=== PATIENT | female | born 1955 | race Caucasian/White ===

== ENCOUNTER → 2018-05-01 | Outpatient (CLI) | payer MEDICARE, OTHER ==
--- NOTE | 2018-05-01 13:29 | Diagnostic Imaging Report ---
INDICATION: Osteoporosis screening in postmenopausal female. COMPARISON: None. FINDINGS: AP Spine L1-L4: [BMD (g/cm2): 1.097] [T-Score: -0.9] [Z-Score: 0.9] [BMD Previous: N/A] [BMD % Change: N/A] LT Hip Neck: [BMD (g/cm2): 0.853] [T-Score: -1.3] [Z-Score: 0.2] LT Hip Total: [BMD (g/cm2):0.958] [T-Score:-0.4] [Z-Score: 0.9] [BMD Previous: N/A] [BMD % Change: N/A] RT Hip Neck: [BMD (g/cm2):0.914] [T-Score:-0.9] [Z-Score:0.7] RT Hip Total: [BMD (g/cm2):0.986] [T-score:-0.2] [Z-Score:1.1] [BMD Previous:N/A] [BMD % Change:N/A] *Indicates significant change from prior examination based on 95% confidence level. World Health Organization criteria for BMD interpretation classify patients as Normal (T-score at or above -1.0), Osteopenic (T-score between -1.0 and -2.5) or Osteoporotic (T-score at or below -2.5). LIMITATIONS AND MODIFICATION: None. FRACTURE RISK (FRAX SCORE): The ten year probability of (%): Major Osteoporotic Fracture: [N/A] Hip Fracture: [N/A] IMPRESSION: 1. Osteopenia (Low bone mass). 2. Baseline examination. 3. See below National Osteoporosis Foundation guidelines on when to potentially initiate pharmacologic therapy. Based on the National Osteoporosis Foundation Guidelines, pharmacologic treatment should be initiated in any of the following, unless clinical conditions suggest otherwise: * Any patient with prior fragility fracture of the hip or vertebrae. A spine fracture indicates 5X risk for subsequent spine fracture and 2X risk for subsequent hip fracture. * Osteoporosis (T-score <-2.5). * Postmenopausal women and men age 50 and older with low bone mass/osteopenia (T-score between -1.0 and -2.5) by DXA and 10-year major osteoporotic fracture greater than 20% or a 10-year probability of hip fracture greater than 3%. These fracture risks are supplied above in the FRAX score, if applicable. * Clinician judgement and/or patient preferences may indicate treatment for people with 10-year fracture probabilities above or below these levels. Dictated by: Dictated on workstation # [id number]
--- NOTE | 2018-05-02 20:53 | Diagnostic Imaging Report ---
INDICATION: Routine screening. COMPARISON: No prior mammograms are available for comparison. TECHNIQUE: 2D and 3D bilateral screening mammography was performed with CAD. FINDINGS: Scattered fibroglandular densities are identified bilaterally. There are scattered benign calcifications bilaterally. No masses or malignant appearing microcalcifications are seen. The axillae are unremarkable. IMPRESSION: No mammographic features suspicious for malignancy are identified. ACR BI-RADS Category 2: Benign findings. Result letter will be mailed to the patient. Note: At least 10% of breast cancer is not imaged by mammography. Dictated on workstation # [id number]
== END ==
LOC: RAD 10:33
PROVIDERS: ATTEND Nurse Practitioner Family
DX: Z12.31 Encounter for screening mammogram for malignant neoplasm of breast (principal); Z13.820 Encounter for screening for osteoporosis; M85.88 Other specified disorders of bone density and structure, other site; Z78.0 Asymptomatic menopausal state
CPT/HCPCS: 77067; 77080

== ENCOUNTER 2018-09-19 20:20 | Emergency (ER) | payer MEDICARE, OTHER ==
[~2018-09-19] VITALS: Ht 152.4 cm; Wt 62.6 kg
--- OUTSIDE RECORDS SUMMARY | 2018-09-19 20:26 | XMS REPORT ---
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 Name Role Phone Migration, Doctor Unavailable Unavailable PROBLEMS Type Condition ICD9-CM Code TXP72-QT Code Onset Dates Condition Status SNOMED Code Problem Hypertension I10 Active 94812409 Problem Insomnia G47.00 Active 926621894 Problem Hyperlipidemia LDL goal <70 E78.5 Active 25769866 Problem Long-term use of high-risk medication Z79.899 Active 639732228 Problem Arthritis M19.90 Active 5438358 Problem Hypercholesterolemia E78.0 Active 38533346 Problem Anxiety associated with depression F41.8 Active 690581821 Problem Type 2 diabetes mellitus with other specified complication, without long- term current use of insulin E11.69 Active 72944972 Problem Fibromyalgia M79.7 Active 38414052 Problem Adjustment disorder with anxiety F43.22 Active 51214622 Problem Chronic maxillary sinusitis J32.0 Active 21853081 Problem Overweight (BMI 25.0-29.9) E66.3 Active 527029819 Problem Chronic fatigue R53.82 Active 37855558 ALLERGIES No Information ENCOUNTERS Encounter Location Date Diagnosis [facility] [id number] [place] [address] Oct, [facility] [address] [address] Aug, [facility] [id number] [place] [address] Aug, Viral upper respiratory tract infection J06.9 and Wheezing R06.2 [facility] [id number] [place] [address] Jun, Hypertension I10 [facility] [id number] [place] [address] Jun, [facility] [address] [place] [address] 04 Jun, 2018 Hyperlipidemia LDL goal <70 E78.5 [place] [address] [address] May, Fibromyalgia M79.7 and Hypertension I10 [facility] [id number] [place] [address] May, Type 2 diabetes mellitus with other specified complication, without long-term current use of insulin E11.69 [place] [id number] [place] [address] Apr, Fibromyalgia M79.7 [place] [address] [address] Apr, Well woman exam without gynecological exam Z00.00 ; Breast cancer screening Z12.31 and Screening for osteoporosis Z13.820 [place] [address] [address] Apr, Hypertension I10 [place] [address] [address] Mar, Fibromyalgia M79.7 [facility] [id number] [place] [address] Mar, Hypertension I10 [place] [id number] [place] [address] Mar, Hypertension I10 [place] [id number] [place] [address] Feb, Hypertension I10 ; Hyperlipidemia LDL goal <70 E78.5 and Type 2 diabetes mellitus with other specified complication, without long-term current use of insulin E11.69 [place] [id number] [place] [address] Feb, Hypertension I10 [place] [id number] [place] [address] Feb, Fibromyalgia M79.7 [facility] [id number] [place] [address] 17 Jan, 2018 Hypertension I10 ; Trochanteric bursitis, right hip M70.61 ; Trochanteric bursitis of left hip M70.62 ; Chronic fatigue R53.82 ; Type 2 diabetes mellitus without complication, without long-term current use of insulin E11.9 and Hypercholesterolemia E78.0 [place] [id number] [place] [address] Dec, Fibromyalgia M79.7 [place] [address] [address] Nov, Hyperlipidemia LDL goal <70 E78.5 [place] [address] [address] Nov, Hyperlipidemia LDL goal <70 E78.5 [facility] [id number] [place] [address] Nov, Hypercholesterolemia E78.0 [place] [id number] [place] [address] Oct, Hyperlipidemia LDL goal <70 E78.5 [facility] [id number] [place] [address] Oct, Type 2 diabetes mellitus without complication, without long-term current use of insulin E11.9 ; Hyperlipidemia LDL goal <70 E78.5 ; Hypertension I10 ; Fibromyalgia M79.7 and Chronic fatigue R53.82 [place] [id number] [place] [address] 15 Oct, 2017 Type 2 diabetes mellitus without complication, without long-term current use of insulin E11.9 ; Hyperlipidemia LDL goal <70 E78.5 ; Hypertension I10 ; Fibromyalgia M79.7 ; Chronic fatigue R53.82 and Overweight (BMI 25.0-29.9) E66.3 [place] [id number] [place] [address] Aug, Hypertension I10 and Dyshidrotic eczema L30.1 [place] [address] [address] Jun, Hyperlipidemia LDL goal <70 E78.5 [place] [address] Jun, Arthritis M19.[address] [address] May, Hypertension I10 ; Anxiety associated with depression F41.8 ; Hyperlipidemia LDL goal <70 E78.5 and Chronic maxillary sinusitis J32.[address] [address] May, Acute non-recurrent maxillary sinusitis J01.00 and Sore throat J02.[address] [address] May, Dysthymia F34.1 [place] [address] [address] Apr, Hypertension I10 [address] [address] Apr, Cough R05 ; Sore throat J02.9 and Bronchitis J40 [address] [address] Mar, Anxiety associated with depression F41.8 ; Adjustment disorder with anxiety F43.22 and Depression F32.9 [place] [address] [address] Mar, [address] [address] Mar, Type 2 diabetes mellitus without complication, without long-term current use of insulin E11.9 ; Hypertension I10 ; Hyperlipidemia LDL goal <70 E78.5 ; Arthritis M19.90 ; Long-term use of high-risk medication Z79.899 and Dysthymia F34.1 [place] [id number] [place] [address] Mar, [facility] [id number] [place] [address] Mar, [facility] [id number] [place] [address] Feb, [facility] [id number] [place] [address] Feb, Acute right hip pain M25.551 and Hypertension I10 [facility] [id number] [place] [address] Feb, Diabetes E11.9 [facility] [id number] [place] [address] Jan, Hypertension I10 [facility] [id number] [place] [address] Jan, Hypertension I10 [facility] [id number] [place] [address] Dec, Dysuria R30.0 [facility] [id number] [place] [address] Dec, [facility] [id number] [place] [address] Dec, Fibromyalgia M79.7 [facility] [id number] [place] [address] Dec, Acute recurrent frontal sinusitis J01.11 and Hypertension I10 [facility] [id number] [place] [address] Dec, Hypertension I10 [facility] [id number] [place] [address] Dec, [facility] [id number] [place] [address] Dec, Hypertension I10 [facility] [address] [place] [address] Nov, [facility] [id number] [place] [address] Oct, Fibromyalgia M79.7 ; Hypertension I10 ; Depression F32.9 ; Hypercholesterolemia E78.0 ; Anxiety associated with depression F41.8 and Diabetes E11.9 [facility] [id number] [place] [address] September, Essential hypertension I10 ; Diabetes E11.9 ; Anxiety associated with depression F41.8 and Hypercholesterolemia E78.0 [place] [id number] [place] [address] Aug, [place] [id number] [place] [address] Aug, Diabetes E11.9 [place] [id number] [place] [address] Aug, [facility] [id number] [place] [address] Jul, Acute non-recurrent maxillary sinusitis J01.00 [place] [id number] [place] [address] Jul, Anxiety associated with depression F41.8 [place] [id number] [place] [address] Jun, Anxiety associated with depression F41.8 and Hypercholesterolemia E78.0 [place] [id number] [place] [address] May, Diabetes E11.9 ; Insomnia G47.00 ; Fibromyalgia M79.7 ; Hypercholesterolemia E78.0 ; Anxiety associated with depression F41.8 and Essential hypertension I10 [facility] [address] [place] [address] May, [facility] [id number] [place] [address] May, [facility] [id number] [place] [address] Mar, [facility] [address] [address] Mar, Hypertension I10 [facility] [address] [address] Feb, [facility] [address] [address] Feb, [facility] [address] [address] Feb, Anxiety associated with depression F41.8 ; Chest tightness R07.89 and Elevated blood pressure I10 [place] [address] [address] Feb, Encounter for immunization Z23 ; Bronchitis J40 ; Diabetes E11.9 ; Hypertension I10 ; Insomnia G47.00 ; Hypercholesterolemia E78.0 ; Depression F32.9 and Fibromyalgia M79.7 [facility] [address] [address] Jan, Bronchitis J40 and Depression F32.9 [facility] [id number] [place] [address] Jan, Bronchitis J40 [facility] [id number] [place] [address] Dec, [facility] [id number] [place] [address] Dec, [facility] [address] [address] Nov, Acute non-recurrent frontal sinusitis J01.10 and Hypertension I10 [facility] [address] [address] Nov, [facility] [id number] [place] [address] Nov, Diabetes E11.9 ; Fibromyalgia M79.7 ; Hypertension I10 ; Insomnia G47.00 ; Depression F32.9 and Hypercholesterolemia E78.0 [facility] [id number] [place] [address] Oct, Hypercholesterolemia E78.0 [facility] [address] [address] September, [facility] [id number] [place] [address] Aug, Diabetes E11.9 ; Fibromyalgia M79.7 ; Hypertension I10 ; Insomnia G47.00 ; Depression F32.9 ; Shoulder pain M25.519 ; Hypercholesterolemia E78.0 and Pain in right shoulder M25.511 [place] [id number] [place] [address] Jul, [facility] [address] [address] Jun, Hypercholesterolemia E78.0 [place] [address] [address] Jun, [place] [id number] [place] [address] May, [place] [id number] [place] [address] May, Well woman exam Z01.419 [place] [id number] [place] [address] May, Hypertension I10 ; Diabetes E11.9 ; Fibromyalgia M79.7 ; Insomnia G47.00 ; Depression F32.9 and Hypercholesterolemia E78.0 [place] [id number] [place] [address] Apr, [place] [address] [address] Apr, Fibromyalgia M79.7 ; Hypertension I10 ; Bronchitis J40 ; Insomnia G47.00 ; Depression F32.9 ; Shoulder pain M25.519 and Hypercholesterolemia E78.0 [facility] [address] [address] Mar, Hyperlipemia E78.5 [facility] [address] [address] Mar, Diabetes E11.9 ; Hypertension I10 ; Insomnia G47.00 ; Depression F32.9 and Shoulder pain M25.519 [place] [address] [address] Mar, [facility] [address] [address] Feb, [facility] [address] [place] [address] Feb, Diabetes E11.9 ; Encounter for immunization Z23 ; Fibromyalgia M79.7 ; Hypertension I10 ; Bronchitis J40 and Insomnia G47.00 [place] [address] [address] Feb, Bronchitis J40 [facility] [address] [address] Jan, Bronchitis 490 [facility] [address] [address] Aug, [facility] [address] [address] Aug, [facility] [address] [address] Jul, [facility] [address] [address] Jul, [facility] [address] [address] Jul, [facility] [place] [facility] [address] [id number] [place] [address] Jul, [facility] [place] [facility] [address] [id number] [place] [address] Jun, [facility] [place] [facility] [address] [id number] [place] [address] Jun, [facility] [place] [facility] [address] [id number] [place] [address] May, [facility] [place] [facility] [address] [id number] [place] [address] May, [facility] [place] [facility] [address] [id number] [place] [address] Apr, [facility] [place] [facility] [address] [id number] [place] [address] Apr, [facility] [place] [facility] [address] [id number] [place] [address] Apr, [facility] [place] [facility] [address] [id number] [place] [address] Apr, [facility] [place] [facility] [address] [id number] [place] [address] Apr, [facility] [place] [facility] [address] [id number] [place] [address] Apr, [facility] [place] [facility] [address] [id number] [place] [address] Feb, [facility] [place] [facility] [address] [id number] [place] [address] Feb, [facility] [place] [facility] [address] [id number] [place] [address] Jan, [facility] [place] [facility] [address] [id number] [place] [address] Jan, [facility] [place] [facility] [address] [id number] [place] [address] Dec, [facility] [place] [facility] [address] [id number] [place] [address] Dec, [facility] [place] [facility] [address] [id number] [place] [address] September, [facility] [place] [facility] [address] [id number] [place] [address] September, [facility] [place] [facility] [address] [id number] [place] [address] September, [facility] [place] [facility] [address] [id number] [place] [address] September, [facility] [place] [facility] [address] [id number] [place] [address] September, [facility] [place] [facility] [address] [id number] [place] [address] September, [facility] [place] [facility] [address] [id number] [place] [address] Aug, [facility] [place] [facility] [address] [id number] [place] [address] Aug, [facility] [place] [facility] [address] [id number] [place] [address] Jul, [facility] [place] [facility] [address] [id number] [place] [address] Jul, [facility] [place] [facility] [address] [id number] [place] [address] May, [facility] [place] [facility] [address] [id number] [place] [address] May, [facility] [place] [facility] [address] [id number] [place] [address] May, [facility] [place] [facility] [address] [id number] [place] [address] May, [facility] [place] [facility] [address] [id number] [place] [address] May, [facility] [address] [id number] [place] [address] May, [facility] [place] [facility] [address] [id number] [place] [address] Apr, [facility] [place] [facility] [address] [id number] [place] [address] Apr, [facility] [place] [facility] [address] [id number] [place] [address] Apr, [facility] [address] [id number] [place] [address] Apr, [facility] [place] [facility] [address] [id number] [place] [address] Apr, [facility] [place] [facility] [address] [id number] [place] [address] Apr, [facility] [address] [id number] [place] [address] Apr, [facility] [place] [facility] [address] [id number] [place] [address] Apr, [facility] [address] [id number] [place] [address] Feb, [facility] [place] [facility] [address] [id number] [place] [address] 31 Feb, 2013 [facility] [place] [facility] [address] [id number] [place] [address] 15 Feb, 2013 [facility] [place] [facility] [address] [id number] [place] [address] 15 Feb, [address] [facility] [place] [facility] [address] [id number] [place] [address] 10 Feb, 2013 [facility] [place] [facility] [address] [id number] [place] [address] Feb, [facility] [address] [id number] [place] [address] Feb, [facility] [place] [facility] [address] [id number] [place] [address] Feb, [facility] [address] [id number] [place] [address] Nov, [facility] [place] [facility] [address] [id number] [place] [address] Nov, [facility] [address] [id number] [place] [address] Oct, [facility] [place] [facility] [address] [id number] [place] [address] Oct, [facility] [address] [id number] [place] [address] Oct, [facility] [address] [id number] [place] [address] September, [facility] [place] [facility] [address] [id number] [place] [address] September, [facility] [address] [id number] [place] [address] September, [facility] [place] [facility] [address] [id number] [place] [address] September, [facility] [place] [facility] [address] [id number] [place] [address] September, [facility] [place] [facility] [address] [id number] [place] [address] September, [facility] [place] [facility] [address] [id number] [place] [address] September, [facility] [place] [facility] [address] [id number] [place] [address] September, [facility] [place] [facility] [address] [id number] [place] [address] September, [facility] [place] [facility] [address] [id number] [place] [address] September, [facility] [place] [facility] [address] [id number] [place] [address] Aug, [facility] [place] [facility] [address] [id number] [place] [address] Jul, [facility] [place] [facility] [address] [id number] [place] [address] Jun, [facility] [place] [facility] [address] [id number] [place] [address] Jun, [facility] [place] [facility] [address] [id number] [place] [address] May, [facility] [place] [facility] [address] [id number] [place] [address] May, [facility] [place] [facility] [address] [id number] [place] [address] Mar, [facility] [place] [facility] [address] [id number] [place] [address] Mar, [facility] [place] [facility] [address] [id number] [place] [address] Mar, [facility] [place] [facility] [address] [id number] [place] [address] Mar, [facility] [place] [facility] [address] [id number] [place] [address] Feb, [facility] [place] [facility] [address] [id number] [place] [address] Feb, [facility] [place] [facility] [address] [id number] [place] [address] Feb, [facility] [place] [facility] [address] [id number] [place] [address] Feb, [facility] [place] [facility] [address] [id number] [place] [address] Feb, [facility] [place] [facility] [address] [id number] [place] [address] Feb, [facility] [place] [facility] [address] [id number] [place] [address] Feb, [facility] [place] [facility] [address] [id number] [place] [address], [place] [address] 18 Jan, 2012 [facility] [place] [facility] [address] [id number] [place] [address] 14 Jan, 2012 [facility] [place] [facility] [address] [id number] [place] [address] Jan, [facility] [place] [facility] [address] [id number] [place] [address] 30 Dec, 2011 [facility] [place] [facility] [address] [id number] [place] [address] Dec, [facility] [place] [facility] [address] [id number] [place] [address] Dec, [facility] [place] [facility] [address] [id number] [place] [address] Nov, [facility] [place] [facility] [address] [id number] [place] [address] Oct, [facility] [place] [facility] [address] [id number] [place] [address] Oct, [facility] [place] [facility] [address] [id number] [place] [address] Oct, [facility] [place] [facility] [address] [id number] [place] [address] Oct, [facility] [place] [facility] [address] [id number] [place] [address] 07 Oct, 2011 [facility] [place] [facility] [address] [id number], [place] [address] Aug, [facility] [address] [facility] [id number] [place] [address] Aug, [facility] [address] [facility] [id number], [place] [address] Jul, [facility] [address] [facility] [id number], [place] [address] Jun, [facility] [address] [id number] [id number] Jun, [facility] [address] [facility] [id number] [place] [address] May, [facility] [address] [facility] [id number], [place] [address] May, [facility] [address] [id number], [place] [address] May, [facility] [address] [id number], [place] [address] May, [facility] [address] [id number], [place] [address] May, [facility] [address] [facility] [id number], [place] [address] Apr, [facility] [address] [id number], [place] [address] Apr, [facility] [place] [facility] [address] [id number], [place] [address] Apr, [facility] [address] [id number] [place] [address] Apr, [facility] [place] [facility] [address] [facility] [id number], [place] [address] Apr, [facility] [place] [facility] [address] [facility] [id number], [place] [address] Apr, [facility] [address] [facility] [id number] [place] [address] Apr, [facility] [address] [facility] [id number] [place] [address] Apr, IMMUNIZATIONS No Known Immunizations SOCIAL HISTORY Never Assessed REASON FOR VISIT [place] [place] VITAL SIGNS MEDICATIONS Unknown Medications RESULTS No Results PROCEDURES No Known procedures INSTRUCTIONS MEDICATIONS ADMINISTERED No Known Medications MEDICAL (GENERAL) HISTORY Type Description Date Medical History Diabetes type II Medical History hypertension Medical History fibromyalgia Medical History hyperlipidemia Medical History ostoarthrtis Surgical History hysterectomy has right ovary left 1995 Surgical History shoulder surgery(right) 09/2014 Surgical History cataract surgery 2018 Hospitalization History surgeries Hospitalization History childbirth x 2
--- OUTSIDE RECORDS SUMMARY | 2018-09-19 20:27 | XMS REPORT ---
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 Name Role Phone Migration, Doctor Unavailable Unavailable PROBLEMS Type Condition ICD9-CM Code [id number] Code Onset Dates Condition Status SNOMED Code Problem Hypertension I10 Active 27223846 Problem Insomnia G47.00 Active 219712221 Problem Hyperlipidemia LDL goal <70 E78.5 Active 85976365 Problem Long-term use of high-risk medication Z79.899 Active 869214724 Problem Arthritis M19.90 Active 0680753 Problem Hypercholesterolemia E78.0 Active 04937346 Problem Anxiety associated with depression F41.8 Active 161178914 Problem Type 2 diabetes mellitus with other specified complication, without long- term current use of insulin E11.69 Active 29133456 Problem Fibromyalgia M79.7 Active 68185670 Problem Adjustment disorder with anxiety F43.22 Active 66519383 Problem Chronic maxillary sinusitis J32.0 Active 20633003 Problem Overweight (BMI 25.0-29.9) E66.3 Active 896792299 Problem Chronic fatigue R53.82 Active [id number] ALLERGIES No Information ENCOUNTERS Encounter Location Date Diagnosis [facility] [id number] [place] [address] Jun, Hypertension I10 [facility] [id number] [place] [address] Jun, [facility] [id number] [place] [address] Jun, Hyperlipidemia LDL goal <70 E78.5 [facility] [id number] [place] [address] May, Fibromyalgia M79.7 and Hypertension I10 [facility] [id number] [place] [address] May, Type 2 diabetes mellitus with other specified complication, without long-term current use of insulin E11.69 [facility] [id number] [place] [address] Apr, Fibromyalgia M79.7 [facility] [id number] [place], [place] [id number] 07 Apr, 2018 Well woman exam without gynecological exam Z00.00 ; Breast cancer screening Z12.31 and Screening for osteoporosis Z13.820 [facility] [id number] [place] [address] Apr, Hypertension I10 [facility] [id number] [place] [address] Mar, Fibromyalgia M79.7 [facility] [id number] [place] [address] Mar, Hypertension I10 [facility] [id number] [place] [address] Mar, Hypertension I10 [facility] [id number] [place] [address] Feb, Hypertension I10 ; Hyperlipidemia LDL goal <70 E78.5 and Type 2 diabetes mellitus with other specified complication, without long-term current use of insulin E11.69 [facility] [id number] [place] [address] Feb, Hypertension I10 [facility] [id number] [place] [address] Feb, Fibromyalgia M79.7 [facility] [id number] [place] [address] Jan, Hypertension I10 ; Trochanteric bursitis, right hip M70.61 ; Trochanteric bursitis of left hip M70.62 ; Chronic fatigue R53.82 ; Type 2 diabetes mellitus without complication, without long-term current use of insulin E11.9 and Hypercholesterolemia E78.0 [facility] [id number] [place] [address] Dec, Fibromyalgia M79.7 [facility] [id number] [place] [address] Nov, Hyperlipidemia LDL goal <70 E78.5 [facility] [id number] [place] [address] Nov, Hyperlipidemia LDL goal <70 E78.5 [facility] [address] [address] Nov, Hypercholesterolemia E78.0 [facility] [id number] [place] [address] Oct, Hyperlipidemia LDL goal <70 E78.5 [facility] [id number] [place] [address] Oct, Type 2 diabetes mellitus without complication, without long-term current use of insulin E11.9 ; Hyperlipidemia LDL goal <70 E78.5 ; Hypertension I10 ; Fibromyalgia M79.7 and Chronic fatigue R53.82 [facility] [id number] [place] [address] Oct, Type 2 diabetes mellitus without complication, without long-term current use of insulin E11.9 ; Hyperlipidemia LDL goal <70 E78.5 ; Hypertension I10 ; Fibromyalgia M79.7 ; Chronic fatigue R53.82 and Overweight (BMI 25.0-29.9) E66.3 [facility] [id number] [place] [address] Aug, Hypertension I10 and Dyshidrotic eczema L30.1 [facility] [id number] [place] [address] Jun, Hyperlipidemia LDL goal <70 E78.5 [facility] [id number] [place] [address] Jun, Arthritis M19.90 [facility] [id number] [place] [address] May, Hypertension I10 ; Anxiety associated with depression F41.8 ; Hyperlipidemia LDL goal <70 E78.5 and Chronic maxillary sinusitis J32.0 [facility] [address] [address] May, Acute non-recurrent maxillary sinusitis J01.00 and Sore throat J02.[address] [address] May, Dysthymia F34.1 [facility] [address] [address] Apr, Hypertension I10 [address] [address] Apr, Cough R05 ; Sore throat J02.9 and Bronchitis J40 [address] [address] Mar, Anxiety associated with depression F41.8 ; Adjustment disorder with anxiety F43.22 and Depression F32.9 [facility] [id number] [place] [address] Mar, [address] [address] Mar, Type 2 diabetes mellitus without complication, without long-term current use of insulin E11.9 ; Hypertension I10 ; Hyperlipidemia LDL goal <70 E78.5 ; Arthritis M19.90 ; Long-term use of high-risk medication Z79.899 and Dysthymia F34.1 [facility] [id number] [place] [address] Mar, [address] [address] Mar, [facility] [id number] [place] [address] Feb, [facility] [address] [address] Feb, Acute right hip pain M25.551 and Hypertension I10 [facility] [id number] [place] [address] Feb, Diabetes E11.9 [facility] [id number] [place] [address] Jan, Hypertension I10 [facility] [id number] [place] [address] Jan, Hypertension I10 [facility] [id number] [place] [address] Dec, Dysuria R30.0 [facility] [id number] [place] [address] Dec, [facility] [id number] [place] [address] Dec, Fibromyalgia M79.7 [facility] [id number] [place] [address] Dec, Acute recurrent frontal sinusitis J01.11 and Hypertension I10 [facility] [id number] [place] [address] Dec, Hypertension I10 [facility] [id number] [place] [address] Dec, [facility] [id number] [place] [address] Dec, Hypertension I10 [facility] [id number] [place] [address] Nov, [facility] [id number] [place] [address] Oct, Fibromyalgia M79.7 ; Hypertension I10 ; Depression F32.9 ; Hypercholesterolemia E78.0 ; Anxiety associated with depression F41.8 and Diabetes E11.9 [facility] [id number] [place] [address] September, Essential hypertension I10 ; Diabetes E11.9 ; Anxiety associated with depression F41.8 and Hypercholesterolemia E78.0 [facility] [id number] [place] [address] Aug, [facility] [id number] [place] [address] Aug, Diabetes E11.9 [facility] [id number] [place] [address] Aug, [facility] [id number] [place] [address] Jul, Acute non-recurrent maxillary sinusitis J01.00 [facility] [id number] [place] [address] Jul, Anxiety associated with depression F41.8 [facility] [id number] [place] [address] Jun, Anxiety associated with depression F41.8 and Hypercholesterolemia E78.0 [facility] [id number] [place] [address] May, Diabetes E11.9 ; Insomnia G47.00 ; Fibromyalgia M79.7 ; Hypercholesterolemia E78.0 ; Anxiety associated with depression F41.8 and Essential hypertension I10 [facility] [id number] [place] [address] May, [facility] [id number] [place] [address] May, [facility] [id number] [place] [address] Mar, [facility] [id number] [place] [address] Mar, Hypertension I10 [facility] [id number] [place] [address] Feb, [facility] [id number] [place] [address] Feb, [facility] [address] [address] Feb, Anxiety associated with depression F41.8 ; Chest tightness R07.89 and Elevated blood pressure I10 [facility] [address] [address] Feb, Encounter for immunization Z23 ; Bronchitis J40 ; Diabetes E11.9 ; Hypertension I10 ; Insomnia G47.00 ; Hypercholesterolemia E78.0 ; Depression F32.9 and Fibromyalgia M79.7 [facility] [address] [address] Jan, Bronchitis J40 and Depression F32.9 [facility] [address] [address] Jan, Bronchitis J40 [facility] [address] [address] Dec, [facility] [address] [address] Dec, [facility] [address] [address] Nov, Acute non-recurrent frontal sinusitis J01.10 and Hypertension I10 [facility] [address] [address] Nov, [facility] [address] [address] Nov, Diabetes E11.9 ; Fibromyalgia M79.7 ; Hypertension I10 ; Insomnia G47.00 ; Depression F32.9 and Hypercholesterolemia E78.0 [facility] [address] [address] Oct, Hypercholesterolemia E78.0 [facility] [address] [address] September, [facility] [id number] [place] [address] Aug, Diabetes E11.9 ; Fibromyalgia M79.7 ; Hypertension I10 ; Insomnia G47.00 ; Depression F32.9 ; Shoulder pain M25.519 ; Hypercholesterolemia E78.0 and Pain in right shoulder M25.511 [facility] [address] [address] Jul, [facility] [address] [address] Jun, Hypercholesterolemia E78.0 [facility] [address] [address] Jun, [facility] [address] [address] May, [facility] [address] [address] May, Well woman exam Z01.[address] [address] May, Hypertension I10 ; Diabetes E11.9 ; Fibromyalgia M79.7 ; Insomnia G47.00 ; Depression F32.9 and Hypercholesterolemia E78.0 [facility] [id number] [place] [address] Apr, [facility] [address] [address] Apr, Fibromyalgia M79.7 ; Hypertension I10 ; Bronchitis J40 ; Insomnia G47.00 ; Depression F32.9 ; Shoulder pain M25.519 and Hypercholesterolemia E78.0 [facility] [id number] [place] [address] Mar, Hyperlipemia E78.5 [facility] [address] [address] Mar, Diabetes E11.9 ; Hypertension I10 ; Insomnia G47.00 ; Depression F32.9 and Shoulder pain M25.519 [facility] [address] [address] Mar, [facility] [address] [address] Feb, [facility] [address] [address] Feb, Diabetes E11.9 ; Encounter for immunization Z23 ; Fibromyalgia M79.7 ; Hypertension I10 ; Bronchitis J40 and Insomnia G47.00 [facility] [address] [address] Feb, Bronchitis J40 [facility] [address] [address] Jan, Bronchitis 490 [facility] [address] [address] Aug, [facility] [address] [address] Aug, [facility] [address] [address] Jul, [facility] [id number] [place] [address] Jul, [facility] [address] [address] Jul, [facility] [address] [address] Jul, [facility] [address] [address] Jun, [facility] [address] [address] Jun, [facility] [address] [place] [address] May, [facility] [place] [facility] [address] [id number] [place] [address] May, [facility] [place] [facility] [address] [id number] [place] [address] Apr, [facility] [place] [facility] [address] [id number] [place] [address] Apr, [facility] [place] [facility] [address] [id number] [place] [address] Apr, [facility] [place] [facility] [address] [id number] [place] [address] Apr, [facility] [place] [facility] [address] [id number] [place] [address] Apr, [facility] [place] [facility] [address] [id number] [place] [address] Apr, [facility] [place] [facility] [address] [id number] [place] [address] Feb, [facility] [place] [facility] [address] [id number] [place] [address] Feb, [facility] [place] [facility] [address] [id number] [place] [address] Jan, [facility] [place] [facility] [address] [id number] [place] [address] Jan, [facility] [place] [facility] [address] [id number] [place] [address] Dec, [facility] [place] [facility] [address] [id number] [place] [address] Dec, [facility] [place] [facility] [address] [id number] [place] [address] September, [facility] [place] [facility] [address] [id number] [place] [address] September, [facility] [place] [facility] [address] [id number] [place] [address] September, [facility] [place] [facility] [address] [id number] [place] [address] September, [facility] [place] [facility] [address] [id number] [place] [address] September, [facility] [place] [facility] [address] [id number] [place] [address] September, [facility] [place] [facility] [address] [id number] [place] [address] Aug, [facility] [place] [facility] [address] [id number] [place] [address] Aug, [facility] [place] [facility] [address] [id number] [place] [address] Jul, [facility] [place] [facility] [address] [id number] [place] [address] Jul, [facility] [place] [facility] [address] [id number] [place] [address] May, [facility] [place] [facility] [address] [id number] [place] [address] May, [facility] [place] [facility] [address] [id number] [place] [address] May, [facility] [place] [facility] [address] [id number] [place] [address] May, [facility] [place] [facility] [address] [id number] [place] [address] May, [facility] [place] [facility] [address] [id number] [place] [address] May, [facility] [place] [facility] [address] [id number] [place] [address] Apr, [facility] [place] [facility] [address] [id number] [place] [address] Apr, [facility] [place] [facility] [address] [id number] [place] [address] Apr, [facility] [place] [facility] [address] [id number] [place] [address] Apr, [facility] [place] [facility] [address] [id number] [place] [address] Apr, [facility] [place] [facility] [address] [id number] [place] [address] Apr, [facility] [place] [facility] [address] [id number] [place] [address] Apr, [facility] [place] [facility] [address] [id number] [place] [address] Apr, [facility] [place] [facility] [address] [id number] [place] [address] Feb, [facility] [place] [facility] [address] [id number] [address] Feb, [facility] [place] [facility] [address] [id number] [place] [address] Feb, [facility] [place] [facility] [address] [id number] [place] [address] Feb, [facility] [place] [facility] [address] [id number], [place] [address] Feb, [facility] [place] [facility] [address] [id number], [place] [address] 10 Feb, 2013 [facility] [place] [facility] [address] [id number] [place] [address] Feb, [facility] [place] [facility] [address] [id number], [place] [address] Feb, [facility] [place] [facility] [address] [id number], [place] [address] Nov, [facility] [place] [facility] [address] [id number] [place] [address] Nov, [facility] [address] [id number] [place] [address] Oct, [facility] [address] [id number] [place] [address] Oct, [facility] [address] [id number] [place] [address] Oct, [facility] [address] [id number] [place] [address] September, [facility] [address] [id number] [place] [address] September, [facility] [address] [id number] [place] [address] September, [facility] [address] [id number] [place] [address] September, [facility] [address] [id number] [place] [address] September, [facility] [address] [id number] [place] [address] September, [facility] [address] [id number] [place] [address] September, [facility] [address] [id number] [place] [address] September, [facility] [address] [id number] [place] [address] September, [facility] [address] [id number] [place] [address] September, [facility] [address] [id number] [place] [address] Aug, [facility] [address] [id number] [place] [address] Jul, [facility] [place] [facility] [address] [id number] [place] [address] Jun, [facility] [place] [facility] [address] [id number] [place] [address] Jun, [facility] [place] [facility] [address] [id number] [place] [address] May, [facility] [place] [facility] [address] [id number] [place] [address] May, [facility] [place] [facility] [address] [id number] [place] [address] Mar, [facility] [place] [facility] [address] [id number] [place] [address] Mar, [facility] [place] [facility] [address] [id number] [place] [address] Mar, [facility] [place] [facility] [address] [id number], [place] [address] Mar, [facility] [place] [facility] [address] [id number] [place] [address] Feb, [facility] [place] [facility] [address] [facility] [id number], [place] [address] Feb, [facility] [place] [facility] [address] [id number], [place] [address] Feb, [facility] [place] [facility] [address] [id number], [place] [address] Feb, [facility] [place] [facility] [address] [id number], [place] [address] Feb, [facility] [place] [facility] [address] [id number], [place] [address] Feb, [facility] [place] [facility] [address] [facility] [id number] [address] Feb, [facility] [place] [facility] [address] [id number], [place] [address] 18 Jan, 2012 [facility] [address] [id number] [place] [address] 14 Jan, 2012 [facility] [address] [id number] [place] [address] 10 Jan, 2012 [facility] [address] [id number] [place] [address] 30 Dec, 2011 [facility] [address] [id number] [place] [address] Dec, [facility] [address] [id number] [place] [address] Dec, [facility] [address] [id number] [place] [address] Nov, [facility] [id number] [place] [address] Oct, [facility] [address] [id number] [place] [address] Oct, [facility] [address] [id number] [place] [address] Oct, [facility] [address] [id number] [place] [address] Oct, [facility] [id number] [place] [address] Oct, [facility] [address] [facility] [id number] [place] [address] Aug, [facility] [place] [facility] [address] [id number] [place] [address] Aug, [facility] [place] [facility] [address] [facility] [id number] [place] [address] Jul, [facility] [address] [id number] [place] [address] Jun, [facility] [address] [id number] [id number] 14 Jun, 2011 [facility] [address] [id number] [address] May, [facility] [id number] [address] May, [facility] [address] [id number] [address] May, [facility] [id number] [address] May, [facility] [id number] [address] May, [facility] [id number] [address] Apr, [facility] [id number] [address] Apr, [facility] [id number] [address] Apr, [facility] [id number] [address] Apr, [facility] [address] [id number] [address] Apr, [facility] [address] [id number] [address] Apr, [facility] [address] [id number], [place] [address] Apr, [facility] [address] [id number] [address] Apr, IMMUNIZATIONS No Known Immunizations SOCIAL HISTORY Never Assessed REASON FOR VISIT EMR-[facility] [place] PLAN OF CARE VITAL SIGNS MEDICATIONS Unknown Medications RESULTS No Results PROCEDURES No Known procedures INSTRUCTIONS MEDICATIONS ADMINISTERED No Known Medications MEDICAL (GENERAL) HISTORY Type Description Date Medical History Diabetes type II Medical History hypertension Medical History fibromyalgia Medical History hyperlipidemia Medical History ostoarthrtis Surgical History hysterectomy has right ovary left 1996 Surgical History shoulder surgery(right) 09/2014 Surgical History cataract surgery 2018 Hospitalization History surgeries Hospitalization History childbirth x 2
--- OUTSIDE RECORDS SUMMARY | 2018-09-19 20:27 | XMS REPORT ---
Author Author Migration, Doctor Organization [facility] Address Unknown Phone Unavailable Care Team Providers Care Senior Facilities Manager Name Role Phone Migration, Doctor Unavailable Unavailable PROBLEMS Type Condition ICD9-CM Code [id number] Code Onset Dates Condition Status SNOMED Code Problem Hypertension I10 Active 70055670 Problem Insomnia G47.00 Active 319165017 Problem Hyperlipidemia LDL goal <70 E78.5 Active 80404430 Problem Long-term use of high-risk medication Z79.899 Active 784741427 Problem Arthritis M19.90 Active 7669782 Problem Hypercholesterolemia E78.0 Active 48186961 Problem Anxiety associated with depression F41.8 Active 596494861 Problem Type 2 diabetes mellitus with other specified complication, without long- term current use of insulin E11.69 Active 96536455 Problem Fibromyalgia M79.7 Active 80886741 Problem Adjustment disorder with anxiety F43.22 Active 44062428 Problem Chronic maxillary sinusitis J32.0 Active 03460035 Problem Overweight (BMI 25.0-29.9) E66.3 Active 361730323 Problem Chronic fatigue R53.82 Active 06887203 ALLERGIES No Information ENCOUNTERS Encounter Location Date Diagnosis [facility] [id number] [place] [address] Oct, [facility] [address] [address] Aug, [facility] [id number] [place] [address] Aug, Viral upper respiratory tract infection J06.[address] [facility] [id number] [place] [address] Jun, Hypertension I10 [facility] [id number] [place] [address] Jun, [facility] [address] [place] [address] 04 Jun, 2018 Hyperlipidemia LDL goal <70 E78.5 [place] [address] [address] May, Fibromyalgia M79.7 and Hypertension I10 [place] [id number] [place] [address] May, Type 2 diabetes mellitus with other specified complication, without long-term current use of insulin E11.69 [place] [id number] [place] [address] Apr, Fibromyalgia M79.7 [place] [address] [address] Apr, Well woman exam without gynecological exam Z00.00 ; Breast cancer screening Z12.31 and Screening for osteoporosis Z13.820 [place] [address] [address] Apr, Hypertension I10 [place] [address] [address] Mar, Fibromyalgia M79.7 [place] [id number] [place] [address] Mar, Hypertension I10 [place] [id number] [place] [address] Mar, Hypertension I10 [place] [id number] [place] [address] Feb, Hypertension I10 ; Hyperlipidemia LDL goal <70 E78.5 and Type 2 diabetes mellitus with other specified complication, without long-term current use of insulin E11.69 [place] [id number] [place] [address] Feb, Hypertension I10 [place] [id number] [place] [address] Feb, Fibromyalgia M79.7 [place] [id number] [place] [address] 17 Jan, 2018 Hypertension I10 ; Trochanteric bursitis, right hip M70.61 ; Trochanteric bursitis of left hip M70.62 ; Chronic fatigue R53.82 ; Type 2 diabetes mellitus without complication, without long-term current use of insulin E11.9 and Hypercholesterolemia E78.0 [place] [id number] [place] [address] Dec, Fibromyalgia M79.7 [place] [address] [address] Nov, Hyperlipidemia LDL goal <70 E78.5 [place] [address] [address] Nov, Hyperlipidemia LDL goal <70 E78.5 [place] [id number] [place] [address] Nov, Hypercholesterolemia E78.0 [place] [id number] [place] [address] Oct, Hyperlipidemia LDL goal <70 E78.5 [place] [id number] [place] [address] Oct, Type 2 diabetes mellitus without complication, without long-term current use of insulin E11.9 ; Hyperlipidemia LDL goal <70 E78.5 ; Hypertension I10 ; Fibromyalgia M79.7 and Chronic fatigue R53.82 [place] [id number] [place] [address] 15 Oct, 2017 Type 2 diabetes mellitus without complication, without long-term current use of insulin E11.9 ; Hyperlipidemia LDL goal <70 E78.5 ; Hypertension I10 ; Fibromyalgia M79.7 ; Chronic fatigue R53.82 and Overweight (BMI 25.0-29.9) E66.3 [place] [id number] [place] [address] Aug, Hypertension I10 and Dyshidrotic eczema L30.1 [place] [address] [address] Jun, Hyperlipidemia LDL goal <70 E78.5 [place] [address] Jun, Arthritis M19.[address] [address] May, Hypertension I10 ; Anxiety associated with depression F41.8 ; Hyperlipidemia LDL goal <70 E78.5 and Chronic maxillary sinusitis J32.[address] [address] May, Acute non-recurrent maxillary sinusitis J01.00 and Sore throat J02.[address] [address] May, Dysthymia F34.1 [place] [address] [address] Apr, Hypertension I10 [address] [address] Apr, Cough R05 ; Sore throat J02.9 and Bronchitis J40 [address] [address] Mar, Anxiety associated with depression F41.8 ; Adjustment disorder with anxiety F43.22 and Depression F32.9 [place] [address] [address] Mar, [address] [address] Mar, Type 2 diabetes mellitus without complication, without long-term current use of insulin E11.9 ; Hypertension I10 ; Hyperlipidemia LDL goal <70 E78.5 ; Arthritis M19.90 ; Long-term use of high-risk medication Z79.899 and Dysthymia F34.1 [place] [id number] [place] [address] Mar, [facility] [id number] [place] [address] Mar, [facility] [id number] [place] [address] Feb, [facility] [id number] [place] [address] Feb, Acute right hip pain M25.[address] [facility] [id number] [place] [address] Feb, Diabetes E11.9 [facility] [id number] [place] [address] Jan, Hypertension I10 [facility] [id number] [place] [address] Jan, Hypertension I10 [facility] [id number] [place] [address] Dec, Dysuria R30.0 [facility] [id number] [place] [address] Dec, [facility] [id number] [place] [address] Dec, Fibromyalgia M79.7 [facility] [id number] [place] [address] Dec, Acute recurrent frontal sinusitis J01.[address] [facility] [id number] [place] [address] Dec, Hypertension I10 [facility] [id number] [place] [address] Dec, [facility] [id number] [place] [address] Dec, Hypertension I10 [facility] [id number] [place] [address] Nov, [facility] [id number] [place] [address] Oct, Fibromyalgia M79.7 ; Hypertension I10 ; Depression F32.9 ; Hypercholesterolemia E78.0 ; Anxiety associated with depression F41.[address] [facility] [id number] [place] [address] September, Essential hypertension I10 ; Diabetes E11.9 ; Anxiety associated with depression F41.8 and Hypercholesterolemia E78.0 [place] [id number] [place] [address] Aug, [place] [id number] [place] [address] Aug, Diabetes E11.9 [place] [id number] [place] [address] Aug, [facility] [id number] [place] [address] Jul, Acute non-recurrent maxillary sinusitis J01.00 [place] [id number] [place] [address] Jul, Anxiety associated with depression F41.8 [place] [id number] [place] [address] Jun, Anxiety associated with depression F41.8 and Hypercholesterolemia E78.0 [place] [id number] [place] [address] May, Diabetes E11.9 ; Insomnia G47.00 ; Fibromyalgia M79.7 ; Hypercholesterolemia E78.0 ; Anxiety associated with depression F41.8 and Essential hypertension I10 [facility] [id number] [place] [address] May, [facility] [id number] [place] [address] May, [facility] [id number] [place] [address] Mar, [facility] [address] [address] Mar, Hypertension I10 [facility] [address] [address] Feb, [facility] [address] [address] Feb, [facility] [address] [address] Feb, Anxiety associated with depression F41.8 ; Chest tightness R07.89 and Elevated blood pressure I10 [place] [address] [address] Feb, Encounter for immunization Z23 ; Bronchitis J40 ; Diabetes E11.9 ; Hypertension I10 ; Insomnia G47.00 ; Hypercholesterolemia E78.0 ; Depression F32.[address] [facility] [address] [address] Jan, Bronchitis J40 and Depression F32.9 [facility] [id number] [place] [address] Jan, Bronchitis J40 [facility] [id number] [place] [address] Dec, [facility] [id number] [place] [address] Dec, [facility] [address] [address] Nov, Acute non-recurrent frontal sinusitis J01.[address] [facility] [address] [address] Nov, [facility] [id number] [place] [address] Nov, Diabetes E11.9 ; Fibromyalgia M79.7 ; Hypertension I10 ; Insomnia G47.00 ; Depression F32.[address] [facility] [id number] [place] [address] Oct, Hypercholesterolemia E78.0 [facility] [address] [address] September, [place] [id number] [place] [address] Aug, Diabetes E11.9 ; Fibromyalgia M79.7 ; Hypertension I10 ; Insomnia G47.00 ; Depression F32.9 ; Shoulder pain M25.519 ; Hypercholesterolemia E78.0 and Pain in right shoulder M25.511 [place] [id number] [place] [address] Jul, [facility] [address] [address] Jun, Hypercholesterolemia E78.0 [place] [address] [address] Jun, [place] [id number] [place] [address] May, [place] [id number] [place] [address] May, Well woman exam Z01.419 [place] [id number] [place] [address] May, Hypertension I10 ; Diabetes E11.9 ; Fibromyalgia M79.7 ; Insomnia G47.00 ; Depression F32.9 and Hypercholesterolemia E78.0 [place] [id number] [place] [address] Apr, [place] [address] [address] Apr, Fibromyalgia M79.7 ; Hypertension I10 ; Bronchitis J40 ; Insomnia G47.00 ; Depression F32.9 ; Shoulder pain M25.[address] [facility] [address] [address] Mar, Hyperlipemia E78.5 [facility] [address] [address] Mar, Diabetes E11.9 ; Hypertension I10 ; Insomnia G47.00 ; Depression F32.9 and Shoulder pain M25.519 [place] [address] [address] Mar, [facility] [address] [address] Feb, [facility] [address] [place] [address] Feb, Diabetes E11.9 ; Encounter for immunization Z23 ; Fibromyalgia M79.7 ; Hypertension I10 ; Bronchitis J40 and Insomnia G47.00 [place] [address] [address] Feb, Bronchitis J40 [facility] [address] [address] Jan, Bronchitis 490 [facility] [address] [address] Aug, [facility] [address] [address] Aug, [facility] [address] [address] Jul, [facility] [address] [address] Jul, [facility] [address] [address] Jul, [facility] [place] [facility] [address] [id number] [place] [address] Jul, [facility] [place] [facility] [address] [id number] [place] [address] Jun, [facility] [place] [facility] [address] [id number] [place] [address] Jun, [facility] [place] [facility] [address] [id number] [place] [address] May, [facility] [place] [facility] [address] [id number] [place] [address] May, [facility] [place] [facility] [address] [id number] [place] [address] Apr, [facility] [place] [facility] [address] [id number] [place] [address] Apr, [facility] [place] [facility] [address] [id number] [place] [address] Apr, [facility] [place] [facility] [address] [id number] [place] [address] Apr, [facility] [place] [facility] [address] [id number] [place] [address] Apr, [facility] [place] [facility] [address] [id number] [place] [address] Apr, [facility] [place] [facility] [address] [id number] [place] [address] Feb, [facility] [place] [facility] [address] [id number] [place] [address] Feb, [facility] [place] [facility] [address] [id number] [place] [address] Jan, [facility] [place] [facility] [address] [id number] [place] [address] Jan, [facility] [place] [facility] [address] [id number] [place] [address] Dec, [facility] [place] [facility] [address] [id number] [place] [address] Dec, [facility] [place] [facility] [address] [id number] [place] [address] September, [facility] [place] [facility] [address] [id number] [place] [address] September, [facility] [place] [facility] [address] [id number] [place] [address] September, [facility] [place] [facility] [address] [id number] [place] [address] September, [facility] [place] [facility] [address] [id number] [place] [address] September, [facility] [place] [facility] [address] [id number] [place] [address] September, [facility] [place] [facility] [address] [id number] [place] [address] Aug, [facility] [place] [facility] [address] [id number] [place] [address] Aug, [facility] [place] [facility] [address] [id number] [place] [address] Jul, [facility] [place] [facility] [address] [id number] [place] [address] Jul, [facility] [place] [facility] [address] [id number] [place] [address] May, [facility] [place] [facility] [address] [id number] [place] [address] May, [facility] [place] [facility] [address] [id number] [place] [address] May, [facility] [place] [facility] [address] [id number] [place] [address] May, [facility] [place] [facility] [address] [id number] [place] [address] May, [facility] [address] [id number] [place] [address] May, [facility] [place] [facility] [address] [id number] [place] [address] Apr, [facility] [place] [facility] [address] [id number] [place] [address] Apr, [facility] [place] [facility] [address] [id number] [place] [address] Apr, [facility] [address] [id number] [place] [address] Apr, [facility] [place] [facility] [address] [id number] [place] [address] Apr, [facility] [place] [facility] [address] [id number] [place] [address] Apr, [facility] [address] [id number] [place] [address] Apr, [facility] [place] [facility] [address] [id number] [place] [address] Apr, [facility] [address] [id number] [place] [address] Feb, [facility] [place] [facility] [address] [id number] [place] [address] 31 Feb, 2013 [facility] [place] [facility] [address] [id number] [place] [address] 15 Feb, 2013 [facility] [place] [facility] [address] [id number] [place] [address] 15 Feb, 2013 [facility] [place] [facility] [address] [id number] [place] [address] 10 Feb, 2013 [facility] [place] [facility] [address] [id number] [place] [address] Feb, [facility] [address] [id number] [place] [address] Feb, [facility] [place] [facility] [address] [id number] [place] [address] Feb, [facility] [address] [id number] [place] [address] Nov, [facility] [place] [facility] [address] [id number] [place] [address] Nov, [facility] [address] [id number] [place] [address] Oct, [facility] [place] [facility] [address] [id number] [place] [address] Oct, [facility] [address] [id number] [place] [address] Oct, [facility] [address] [id number] [place] [address] September, [facility] [place] [facility] [address] [id number] [place] [address] September, [facility] [address] [id number] [place] [address] September, [facility] [place] [facility] [address] [id number] [place] [address] September, [facility] [place] [facility] [address] [id number] [place] [address] September, [facility] [place] [facility] [address] [id number] [place] [address] September, [facility] [place] [facility] [address] [id number] [place] [address] September, [facility] [place] [facility] [address] [id number] [place] [address] September, [facility] [place] [facility] [address] [id number] [place] [address] September, [facility] [place] [facility] [address] [id number] [place] [address] September, [facility] [place] [facility] [address] [id number] [place] [address] Aug, [facility] [place] [facility] [address] [id number] [place] [address] Jul, [facility] [place] [facility] [address] [id number] [place] [address] Jun, [facility] [place] [facility] [address] [id number] [place] [address] Jun, [facility] [place] [facility] [address] [id number] [place] [address] May, [facility] [place] [facility] [address] [id number] [place] [address] May, [facility] [place] [facility] [address] [id number] [place] [address] Mar, [facility] [place] [facility] [address] [id number] [place] [address] Mar, [facility] [place] [facility] [address] [id number] [place] [address] Mar, [facility] [place] [facility] [address] [id number] [place] [address] Mar, [facility] [place] [facility] [address] [id number] [place] [address] Feb, [facility] [place] [facility] [address] [id number] [place] [address] Feb, [facility] [place] [facility] [address] [id number] [place] [address] Feb, [facility] [place] [facility] [address] [id number] [place] [address] Feb, [facility] [place] [facility] [address] [id number] [place] [address] Feb, [facility] [place] [facility] [address] [id number] [place] [address] Feb, [facility] [place] [facility] [address] [id number] [place] [address] Feb, [facility] [place] [facility] [id number] [place] [address], [place] [address] 18 Jan, 2012 [facility] [place] [facility] [address] [id number] [place] [address] 14 Jan, 2012 [facility] [place] [facility] [address] [id number] [place] [address] Jan, [facility] [place] [facility] [address] [id number] [place] [address] 30 Dec, 2011 [facility] [place] [facility] [address] [id number] [place] [address] Dec, [facility] [place] [facility] [address] [id number] [place] [address] Dec, [facility] [place] [facility] [address] [id number] [place] [address] Nov, [facility] [place] [facility] [address] [id number] [place] [address] Oct, [facility] [place] [facility] [address] [id number] [place] [address] Oct, [facility] [place] [facility] [address] [id number] [place] [address] Oct, [facility] [place] [facility] [address] [id number] [place] [address] Oct, [facility] [place] [facility] [address] [id number] [place] [address] 07 Oct, 2011 [facility] [place] [facility] [address] [id number], [place] [address] Aug, [facility] [address] [facility] [id number] [place] [address] Aug, [facility] [address] [facility] [id number], [place] [address] Jul, [facility] [address] [facility] [id number], [place] [address] Jun, [facility] [address] [id number] [id number] Jun, [facility] [address] [facility] [id number] [place] [address] May, [facility] [address] [facility] [id number], [place] [address] May, [facility] [address] [id number], [place] [address] May, [facility] [address] [id number], [place] [address] May, [facility] [address] [id number], [place] [address] May, [facility] [address] [facility] [id number], [place] [address] Apr, [facility] [address] [id number], [place] [address] Apr, [facility] [place] [facility] [address] [id number], [place] [address] Apr, [facility] [address] [id number] [place] [address] Apr, [facility] [place] [facility] [address] [facility] [id number], [place] [address] Apr, [facility] [place] [facility] [address] [facility] [id number], [place] [address] Apr, [facility] [address] [facility] [id number] [place] [address] Apr, [facility] [address] [facility] [id number] [place] [address] Apr, IMMUNIZATIONS No Known Immunizations SOCIAL HISTORY Never Assessed [place] [place] VITAL SIGNS MEDICATIONS Unknown [...]
--- OUTSIDE RECORDS SUMMARY | 2018-09-19 20:28 | XMS REPORT ---
Author Author Migration, Doctor Organization [facility] Address Unknown Phone Unavailable Care Team Providers Care Maintenance Director Name Role Phone Migration, Doctor Unavailable Unavailable PROBLEMS Type Condition ICD9-CM Code ZKP17-HE Code Onset Dates Condition Status SNOMED Code Problem Hypertension I10 Active 75501092 Problem Insomnia G47.00 Active 290495465 Problem Hyperlipidemia LDL goal <70 E78.5 Active 18229147 Problem Long-term use of high-risk medication Z79.899 Active 417049629 Problem Arthritis M19.90 Active 6607741 Problem Hypercholesterolemia E78.0 Active 86154494 Problem Anxiety associated with depression F41.8 Active 854255936 Problem Type 2 diabetes mellitus with other specified complication, without long- term current use of insulin E11.69 Active 60468062 Problem Fibromyalgia M79.7 Active 67258864 Problem Adjustment disorder with anxiety F43.22 Active 65381693 Problem Chronic maxillary sinusitis J32.0 Active 21579234 Problem Overweight (BMI 25.0-29.9) E66.3 Active 647892958 Problem Chronic fatigue R53.82 Active 57933885 ALLERGIES No Information ENCOUNTERS Encounter Location Date Diagnosis [facility] [id number] [place] [address] Jun, Hypertension I10 [facility] [id number] [place] [address] Jun, [facility] [id number] [place] [address] Jun, Hyperlipidemia LDL goal <70 E78.5 [facility] [id number] [place] [address] May, Fibromyalgia M79.7 and Hypertension I10 [facility] [id number] [place] [address] May, Type 2 diabetes mellitus with other specified complication, without long-term current use of insulin E11.69 [facility] [id number] [place] [address] Apr, Fibromyalgia M79.7 [facility] [id number] [place], [place] [address] 07 Apr, 2018 Well woman exam without gynecological exam Z00.00 ; Breast cancer screening Z12.31 and Screening for osteoporosis Z13.820 [facility] [id number] [place] [address] Apr, Hypertension I10 [facility] [id number] [place] [address] Mar, Fibromyalgia M79.7 [facility] [id number] [place] [address] Mar, Hypertension I10 [facility] [id number] [place] [address] Mar, Hypertension I10 [facility] [id number] [place] [address] Feb, Hypertension I10 ; Hyperlipidemia LDL goal <70 E78.5 and Type 2 diabetes mellitus with other specified complication, without long-term current use of insulin E11.69 [facility] [id number] [place] [address] Feb, Hypertension I10 [facility] [id number] [place] [address] Feb, Fibromyalgia M79.7 [facility] [id number] [place] [address] Jan, Hypertension I10 ; Trochanteric bursitis, right hip M70.61 ; Trochanteric bursitis of left hip M70.62 ; Chronic fatigue R53.82 ; Type 2 diabetes mellitus without complication, without long-term current use of insulin E11.9 and Hypercholesterolemia E78.0 [facility] [place] [id number] [place] [address] Dec, Fibromyalgia M79.7 [place] [id number] [place] [address] Nov, Hyperlipidemia LDL goal <70 E78.5 [facility] [id number] [place] [address] Nov, Hyperlipidemia LDL goal <70 E78.5 [place] [address] [address] Nov, Hypercholesterolemia E78.0 [facility] [id number] [place] [address] Oct, Hyperlipidemia LDL goal <70 E78.5 [facility] [place] [id number] [place] [address] Oct, Type 2 diabetes mellitus without complication, without long-term current use of insulin E11.9 ; Hyperlipidemia LDL goal <70 E78.5 ; Hypertension I10 ; Fibromyalgia M79.7 and Chronic fatigue R53.82 [place] [id number] [place] [address] Oct, Type 2 diabetes mellitus without complication, without long-term current use of insulin E11.9 ; Hyperlipidemia LDL goal <70 E78.5 ; Hypertension I10 ; Fibromyalgia M79.7 ; Chronic fatigue R53.82 and Overweight (BMI 25.0-29.9) E66.3 [facility] [place] [id number] [place] [address] Aug, Hypertension I10 and Dyshidrotic eczema L30.1 [facility] [place] [id number] [place] [address] Jun, Hyperlipidemia LDL goal <70 E78.5 [facility] [id number] [place] [address] Jun, Arthritis M19.90 [facility] [place] [id number] [place] [address] May, Hypertension I10 ; Anxiety associated with depression F41.8 ; Hyperlipidemia LDL goal <70 E78.5 and Chronic maxillary sinusitis J32.0 [place] [address] [address] May, Acute non-recurrent maxillary sinusitis J01.00 and Sore throat J02.[address] [address] May, Dysthymia F34.1 [place] [address] [address] Apr, Hypertension I10 [address] [address] Apr, Cough R05 ; Sore throat J02.9 and Bronchitis J40 [address] [address] Mar, Anxiety associated with depression F41.8 ; Adjustment disorder with anxiety F43.22 and Depression F32.9 [place] [place] [id number] [place] [address] Mar, [address] [address] Mar, Type 2 diabetes mellitus without complication, without long-term current use of insulin E11.9 ; Hypertension I10 ; Hyperlipidemia LDL goal <70 E78.5 ; Arthritis M19.90 ; Long-term use of high-risk medication Z79.899 and Dysthymia F34.1 [place] [id number] [place] [address] Mar, [address] [address] Mar, [facility] [place] [id number] [place] [address] Feb, [place] [address] [address] Feb, Acute right hip pain M25.551 and Hypertension I10 [facility] [id number] [place] [address] Feb, Diabetes E11.9 [facility] [id number] [place] [address] Jan, Hypertension I10 [facility] [id number] [place] [address] Jan, Hypertension I10 [facility] [id number] [place] [address] Dec, Dysuria R30.0 [facility] [id number] [place] [address] Dec, [facility] [id number] [place] [address] Dec, Fibromyalgia M79.7 [facility] [id number] [place] [address] Dec, Acute recurrent frontal sinusitis J01.11 and Hypertension I10 [facility] [id number] [place] [address] Dec, Hypertension I10 [facility] [id number] [place] [address] Dec, [facility] [id number] [place] [address] Dec, Hypertension I10 [facility] [id number] [place] [address] Nov, [facility] [id number] [place] [address] Oct, Fibromyalgia M79.7 ; Hypertension I10 ; Depression F32.9 ; Hypercholesterolemia E78.0 ; Anxiety associated with depression F41.8 and Diabetes E11.9 [facility] [id number] [place] [address] September, Essential hypertension I10 ; Diabetes E11.9 ; Anxiety associated with depression F41.8 and Hypercholesterolemia E78.0 [facility] [id number] [place] [address] Aug, [facility] [id number] [place] [address] Aug, Diabetes E11.9 [facility] [id number] [place] [address] Aug, [facility] [id number] [place] [address] Jul, Acute non-recurrent maxillary sinusitis J01.00 [facility] [id number] [place] [address] Jul, Anxiety associated with depression F41.8 [facility] [id number] [place] [address] Jun, Anxiety associated with depression F41.8 and Hypercholesterolemia E78.0 [facility] [id number] [place] [address] May, Diabetes E11.9 ; Insomnia G47.00 ; Fibromyalgia M79.7 ; Hypercholesterolemia E78.0 ; Anxiety associated with depression F41.8 and Essential hypertension I10 [facility] [id number] [place] [address] May, [facility] [id number] [place] [address] May, [facility] [id number] [place] [address] Mar, [facility] [id number] [place] [address] Mar, Hypertension I10 [facility] [id number] [place] [address] Feb, [facility] [id number] [place] [address] Feb, [facility] [address] [address] Feb, Anxiety associated with depression F41.8 ; Chest tightness R07.89 and Elevated blood pressure I10 [place] [address] [address] Feb, Encounter for immunization Z23 ; Bronchitis J40 ; Diabetes E11.9 ; Hypertension I10 ; Insomnia G47.00 ; Hypercholesterolemia E78.0 ; Depression F32.9 and Fibromyalgia M79.7 [place] [address] [address] Jan, Bronchitis J40 and Depression F32.9 [facility] [address] [address] Jan, Bronchitis J40 [facility] [address] [address] Dec, [place] [address] [address] Dec, [place] [address] [address] Nov, Acute non-recurrent frontal sinusitis J01.10 and Hypertension I10 [place] [address] [address] Nov, [place] [address] [address] Nov, Diabetes E11.9 ; Fibromyalgia M79.7 ; Hypertension I10 ; Insomnia G47.00 ; Depression F32.9 and Hypercholesterolemia E78.0 [place] [address] [address] Oct, Hypercholesterolemia E78.0 [place] [address] [address] September, [place] [id number] [place] [address] Aug, Diabetes E11.9 ; Fibromyalgia M79.7 ; Hypertension I10 ; Insomnia G47.00 ; Depression F32.9 ; Shoulder pain M25.519 ; Hypercholesterolemia E78.0 and Pain in right shoulder M25.511 [place] [address] [address] Jul, [place] [address] [address] Jun, Hypercholesterolemia E78.0 [place] [address] [address] Jun, [place] [address] [address] May, [place] [address] [address] May, Well woman exam Z01.[address] [address] May, Hypertension I10 ; Diabetes E11.9 ; Fibromyalgia M79.7 ; Insomnia G47.00 ; Depression F32.9 and Hypercholesterolemia E78.0 [place] [id number] [place] [address] Apr, [place] [address] [address] Apr, Fibromyalgia M79.7 ; Hypertension I10 ; Bronchitis J40 ; Insomnia G47.00 ; Depression F32.9 ; Shoulder pain M25.519 and Hypercholesterolemia E78.0 [place] [id number] [place] [address] Mar, Hyperlipemia E78.5 [place] [address] [address] Mar, Diabetes E11.9 ; Hypertension I10 ; Insomnia G47.00 ; Depression F32.9 and Shoulder pain M25.519 [facility] [address] [address] Mar, [facility] [address] [address] Feb, [facility] [address] [address] Feb, Diabetes E11.9 ; Encounter for immunization Z23 ; Fibromyalgia M79.7 ; Hypertension I10 ; Bronchitis J40 and Insomnia G47.00 [facility] [address] [address] Feb, Bronchitis J40 [facility] [address] [address] Jan, Bronchitis 490 [facility] [address] [address] Aug, [facility] [address] [address] Aug, [facility] [address] [address] Jul, [facility] [id number] [place] [address] Jul, [facility] [address] [address] Jul, [facility] [address] [address] Jul, [facility] [address] [address] Jun, [facility] [address] [address] Jun, [facility] [address] [place] [address] May, [facility] [place] [facility] [address] [id number] [place] [address] May, [facility] [place] [facility] [address] [id number] [place] [address] Apr, [facility] [place] [facility] [address] [id number] [place] [address] Apr, [facility] [place] [facility] [address] [id number] [place] [address] Apr, [facility] [place] [facility] [address] [id number] [place] [address] Apr, [facility] [place] [facility] [address] [id number] [place] [address] Apr, [facility] [place] [facility] [address] [id number] [place] [address] Apr, [facility] [place] [facility] [address] [id number] [place] [address] Feb, [facility] [place] [facility] [address] [id number] [place] [address] Feb, [facility] [place] [facility] [address] [id number] [place] [address] Jan, [facility] [place] [facility] [address] [id number] [place] [address] Jan, [facility] [place] [facility] [address] [id number] [place] [address] Dec, [facility] [place] [facility] [address] [id number] [place] [address] Dec, [facility] [place] [facility] [address] [id number] [place] [address] September, [facility] [place] [facility] [address] [id number] [place] [address] September, [facility] [place] [facility] [address] [id number] [place] [address] September, [facility] [place] [facility] [address] [id number] [place] [address] September, [facility] [place] [facility] [address] [id number] [place] [address] September, [facility] [place] [facility] [address] [id number] [place] [address] September, [facility] [place] [facility] [address] [id number] [place] [address] Aug, [facility] [place] [facility] [address] [id number] [place] [address] Aug, [facility] [place] [facility] [address] [id number] [place] [address] Jul, [facility] [place] [facility] [address] [id number] [place] [address] Jul, [facility] [place] [facility] [address] [id number] [place] [address] May, [facility] [place] [facility] [address] [id number] [place] [address] May, [facility] [place] [facility] [address] [id number] [place] [address] May, [facility] [place] [facility] [address] [id number] [place] [address] May, [facility] [place] [facility] [address] [id number] [place] [address] May, [facility] [place] [facility] [address] [id number] [place] [address] May, [facility] [place] [facility] [address] [id number] [place] [address] Apr, [facility] [place] [facility] [address] [id number] [place] [address] Apr, [facility] [place] [facility] [address] [id number] [place] [address] Apr, [facility] [place] [facility] [address] [id number] [place] [address] Apr, [facility] [place] [facility] [address] [id number] [place] [address] Apr, [facility] [place] [facility] [address] [id number] [place] [address] Apr, [facility] [place] [facility] [address] [id number] [place] [address] Apr, [facility] [place] [facility] [address] [id number] [place] [address] Apr, [facility] [place] [facility] [address] [id number] [place] [address] Feb, [facility] [place] [facility] [address] [id number], [place] [address] Feb, [facility] [place] [facility] [address] [id number] [place] [address] Feb, [facility] [place] [facility] [address] [id number] [place] [address] Feb, [facility] [place] [facility] [address] [id number], [place] [address] Feb, [facility] [place] [facility] [address] [id number], [place] [address] 10 Feb, 2013 [facility] [place] [facility] [address] [id number] [place] [address] Feb, [facility] [place] [facility] [address] [id number], [place] [address] Feb, [facility] [place] [facility] [address] [id number], [place] [address] Nov, [facility] [place] [facility] [address] [id number] [place] [address] Nov, [facility] [address] [id number] [place] [address] Oct, [facility] [address] [id number] [place] [address] Oct, [facility] [address] [id number] [place] [address] Oct, [facility] [address] [id number] [place] [address] September, [facility] [address] [id number] [place] [address] September, [facility] [address] [id number] [place] [address] September, [facility] [address] [id number] [place] [address] September, [facility] [address] [id number] [place] [address] September, [facility] [address] [id number] [place] [address] September, [facility] [address] [id number] [place] [address] September, [facility] [address] [id number] [place] [address] September, [facility] [address] [id number] [place] [address] September, [facility] [address] [id number] [place] [address] September, [facility] [address] [id number] [place] [address] Aug, [facility] [address] [id number] [place] [address] Jul, [facility] [place] [facility] [address] [id number] [place] [address] Jun, [facility] [place] [facility] [address] [id number] [place] [address] Jun, [facility] [place] [facility] [address] [id number] [place] [address] May, [facility] [place] [facility] [address] [id number] [place] [address] May, [facility] [place] [facility] [address] [id number] [place] [address] Mar, [facility] [place] [facility] [address] [id number] [place] [address] Mar, [facility] [place] [facility] [address] [id number] [place] [address] Mar, [facility] [place] [facility] [address] [id number], [place] [address] Mar, [facility] [place] [facility] [address] [id number] [place] [address] Feb, [facility] [place] [facility] [address] [facility]NOTE 3] [id number], [place] [address] Feb, [facility] [place] [facility] [address] [id number], [place] [address] Feb, [facility] [facility] [address] [id number], [place] [address] Feb, [facility] [place] [facility] [address] [id number], [place] [address] Feb, [facility] [facility] [address] [id number], [place] [address] Feb, [facility] [facility] [address] [facility][NOTE 3] [id number], [place] [address] Feb, [facility] [facility] [address] [id number], [place] [address] 18 Jan, 2012 [facility] [address] [id number] [place] [address] 14 Jan, 2012 [facility] [address] [id number] [place] [address] 10 Jan, 2012 [facility] [address] [id number] [place] [address] 30 Dec, 2011 [facility] [address] [id number] [place] [address] Dec, [facility] [address] [id number] [place] [address] Dec, [facility] [address] [id number] [place] [address] Nov, [facility] [id number] [place] [address] Oct, [facility] [address] [id number] [place] [address] Oct, [facility] [address] [id number] [place] [address] Oct, [facility] [address] [id number] [place] [address] Oct, [facility] [id number] [place] [place] [address] Oct, [facility] [address] [facility][NOTE 3] [id number] [place] [address] Aug, [facility] [place] [facility] [address] [id number] [place] [place] [address] Aug, [facility] [address] [facility][NOTE 3] [id number] [place] [address] Jul, [facility] [address] [id number] [place] [place] [address] Jun, [facility] [address] [id number][place] [id number] 14 Jun, 2011 [facility] [address] [id number], [place] [address] May, [facility] [id number], [place] [address] May, [facility] [address] [id number], [place] [address] May, [facility] [id number], [place] [address] May, [facility] [id number], [place] [address] May, [facility] [id number], [place] [address] Apr, [facility] [id number], [place] [address] Apr, [facility] [id number], [place] [address] Apr, [facility] [id number], [place] [address] Apr, [facility] [address] [id number], [place] [address] Apr, [facility] [address] [id number], [place] [address] Apr, [facility] [address] [id number], [place] [address] Apr, [facility] [address] [id number], [place] [address] Apr, IMMUNIZATIONS No Known Immunizations SOCIAL HISTORY Never Assessed REASON FOR VISIT [facility] PLAN OF CARE VITAL SIGNS MEDICATIONS Medication Instructions Dosage Frequency Start Date End Date Duration Status Effexor XR 150 mg 1 capsule by Oral route 1 time per day May, Active PredniSONE 20 mg 1 tablet by Oral route 1 time per day for 5 day(s) May, Active metformin 850 mg take 1 tablet 2 times per day with morning and evening meals May, Active Trilipix 135 mg take 1 capsule (135 mg) by oral route once daily May, Active Promethazine-Codeine 6.25-10 mg/5 mL 5-10 mL by Oral route every 4 hours Jan, Active Doxycycline Hyclate 100 mg 1 tablet by Oral route 2 times per day for 10 days Dec, Active Levaquin 750 mg 1 tablet by Oral route every 24 hours for 10 days Feb, Active Pyridium 200 mg 1 tablet by Oral route 3 times per day for 3 day(s) for bladder pain September, Active Zithromax Z-All 250 mg 2 tablet by Oral route 1 time per day for 5 days on day 1 then take 1 tab daily on days 2-5 Feb, Active Toprol XL 200 mg take 2 tablet by Oral route 1 time per day QHS May, Active Biaxin 500 mg 1 tablet by Oral route 2 times per day for 10 day(s) Apr, Active Norvasc 10 mg 1 tablet by Oral route 1 time per day May, Active Cozaar 100 mg 1 tablet by Oral route 1 time per day May, Active Fish Oil Oct, Active amitriptyline 25 mg 1-2 tablet by Oral route 1 time per day take at bedtime May, Active MethylPREDNISolone 4 mg by Oral route every day for 6 days as directed per dose pack Feb, Active PredniSONE 10 mg 1 Tablet by Oral route 2 times per day for 5 days Take at 8 am and noon. Apr, Active RESULTS No Results PROCEDURES No Known procedures [...]
--- OUTSIDE RECORDS SUMMARY | 2018-09-19 20:28 | XMS REPORT ---
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 Name Role Phone Migration, Doctor Unavailable Unavailable PROBLEMS Type Condition ICD9-CM Code [id number] Code Onset Dates Condition Status SNOMED Code Problem Hypertension I10 Active 73831107 Problem Insomnia G47.00 Active 606063259 Problem Hyperlipidemia LDL goal <70 E78.5 Active 14133908 Problem Long-term use of high-risk medication Z79.899 Active 270316152 Problem Arthritis M19.90 Active 2257577 Problem Hypercholesterolemia E78.0 Active 32846858 Problem Anxiety associated with depression F41.8 Active 354756074 Problem Type 2 diabetes mellitus with other specified complication, without long- term current use of insulin E11.69 Active 38981896 Problem Fibromyalgia M79.7 Active 82407734 Problem Adjustment disorder with anxiety F43.22 Active 16654263 Problem Chronic maxillary sinusitis J32.0 Active 88234416 Problem Overweight (BMI 25.0-29.9) E66.3 Active 714938583 Problem Chronic fatigue R53.82 Active 85590635 ALLERGIES No Information ENCOUNTERS Encounter Location Date Diagnosis [facility] [id number] [place] [address] Jun, Hypertension I10 [facility] [id number] [place] [address] Jun, [facility] [id number] [place] [address] Jun, Hyperlipidemia LDL goal <70 E78.5 [facility] [id number] [place] [address] May, Fibromyalgia M79.7 and Hypertension I10 [facility] [id number] [place] [address] May, Type 2 diabetes mellitus with other specified complication, without long-term current use of insulin E11.69 [facility] [id number] [place] [address] Apr, Fibromyalgia M79.7 [facility] [id number] [place] [address] 07 Apr, 2018 Well woman exam without gynecological exam Z00.00 ; Breast cancer screening Z12.31 and Screening for osteoporosis Z13.820 [facility] [id number] [place] [address] Apr, Hypertension I10 [facility] [id number] [place] [address] Mar, Fibromyalgia M79.7 [facility] [id number] [place] [address] Mar, Hypertension I10 [facility] [id number] [place] [address] Mar, Hypertension I10 [facility] [id number] [place] [address] Feb, Hypertension I10 ; Hyperlipidemia LDL goal <70 E78.5 and Type 2 diabetes mellitus with other specified complication, without long-term current use of insulin E11.69 [facility] [id number] [place] [address] Feb, Hypertension I10 [facility] [id number] [place] [address] Feb, Fibromyalgia M79.7 [facility] [id number] [place] [address] Jan, Hypertension I10 ; Trochanteric bursitis, right hip M70.61 ; Trochanteric bursitis of left hip M70.62 ; Chronic fatigue R53.82 ; Type 2 diabetes mellitus without complication, without long-term current use of insulin E11.9 and Hypercholesterolemia E78.0 [facility] [id number] [place] [address] Dec, Fibromyalgia M79.7 [facility] [id number] [place] [address] Nov, Hyperlipidemia LDL goal <70 E78.5 [facility] [id number] [place] [address] Nov, Hyperlipidemia LDL goal <70 E78.5 [facility] [address] [address] Nov, Hypercholesterolemia E78.0 [facility] [id number] [place] [address] Oct, Hyperlipidemia LDL goal <70 E78.5 [facility] [id number] [place] [address] Oct, Type 2 diabetes mellitus without complication, without long-term current use of insulin E11.9 ; Hyperlipidemia LDL goal <70 E78.5 ; Hypertension I10 ; Fibromyalgia M79.7 and Chronic fatigue R53.82 [facility] [id number] [place] [address] Oct, Type 2 diabetes mellitus without complication, without long-term current use of insulin E11.9 ; Hyperlipidemia LDL goal <70 E78.5 ; Hypertension I10 ; Fibromyalgia M79.7 ; Chronic fatigue R53.82 and Overweight (BMI 25.0-29.9) E66.3 [facility] [id number] [place] [address] Aug, Hypertension I10 and Dyshidrotic eczema L30.1 [facility] [id number] [place] [address] Jun, Hyperlipidemia LDL goal <70 E78.5 [facility] [id number] [place] [address] Jun, Arthritis M19.90 [facility] [id number] [place] [address] May, Hypertension I10 ; Anxiety associated with depression F41.8 ; Hyperlipidemia LDL goal <70 E78.5 and Chronic maxillary sinusitis J32.0 [facility] [address] [address] May, Acute non-recurrent maxillary sinusitis J01.00 and Sore throat J02.[address] [address] May, Dysthymia F34.1 [facility] [address] [address] Apr, Hypertension I10 [address] [address] Apr, Cough R05 ; Sore throat J02.9 and Bronchitis J40 [address] [address] Mar, Anxiety associated with depression F41.8 ; Adjustment disorder with anxiety F43.22 and Depression F32.9 [facility] [id number] [place] [address] Mar, [address] [address] Mar, Type 2 diabetes mellitus without complication, without long-term current use of insulin E11.9 ; Hypertension I10 ; Hyperlipidemia LDL goal <70 E78.5 ; Arthritis M19.90 ; Long-term use of high-risk medication Z79.899 and Dysthymia F34.1 [facility] [id number] [place] [address] Mar, [address] [address] Mar, [facility] [id number] [place] [address] Feb, [facility] [address] [address] Feb, Acute right hip pain M25.551 and Hypertension I10 [facility] [id number] [place] [address] Feb, Diabetes E11.9 [facility] [id number] [place] [address] Jan, Hypertension I10 [facility] [id number] [place] [address] Jan, Hypertension I10 [facility] [id number] [place] [address] Dec, Dysuria R30.0 [facility] [id number] [place] [address] Dec, [facility] [id number] [place] [address] Dec, Fibromyalgia M79.7 [facility] [id number] [place] [address] Dec, Acute recurrent frontal sinusitis J01.11 and Hypertension I10 [facility] [id number] [place] [address] Dec, Hypertension I10 [facility] [id number] [place] [address] Dec, [facility] [id number] [place] [address] Dec, Hypertension I10 [facility] [id number] [place] [address] Nov, [facility] [id number] [place] [address] Oct, Fibromyalgia M79.7 ; Hypertension I10 ; Depression F32.9 ; Hypercholesterolemia E78.0 ; Anxiety associated with depression F41.8 and Diabetes E11.9 [facility] [id number] [place] [address] September, Essential hypertension I10 ; Diabetes E11.9 ; Anxiety associated with depression F41.8 and Hypercholesterolemia E78.0 [facility] [id number] [place] [address] Aug, [facility] [id number] [place] [address] Aug, Diabetes E11.9 [facility] [id number] [place] [address] Aug, [facility] [id number] [place] [address] Jul, Acute non-recurrent maxillary sinusitis J01.00 [facility] [id number] [place] [address] Jul, Anxiety associated with depression F41.8 [facility] [id number] [place] [address] Jun, Anxiety associated with depression F41.8 and Hypercholesterolemia E78.0 [facility] [id number] [place] [address] May, Diabetes E11.9 ; Insomnia G47.00 ; Fibromyalgia M79.7 ; Hypercholesterolemia E78.0 ; Anxiety associated with depression F41.8 and Essential hypertension I10 [facility] [id number] [place] [address] May, [facility] [id number] [place] [address] May, [facility] [id number] [place] [address] Mar, [facility] [id number] [place] [address] Mar, Hypertension I10 [facility] [id number] [place] [address] Feb, [facility] [id number] [place] [address] Feb, [facility] [address] [address] Feb, Anxiety associated with depression F41.8 ; Chest tightness R07.89 and Elevated blood pressure I10 [facility] [address] [address] Feb, Encounter for immunization Z23 ; Bronchitis J40 ; Diabetes E11.9 ; Hypertension I10 ; Insomnia G47.00 ; Hypercholesterolemia E78.0 ; Depression F32.9 and Fibromyalgia M79.7 [place] [address] [address] Jan, Bronchitis J40 and Depression F32.9 [facility] [address] [address] Jan, Bronchitis J40 [facility] [address] [address] Dec, [facility] [facility] [address] [address] Dec, [place] [facility] [address] [address] Nov, Acute non-recurrent frontal sinusitis J01.10 and Hypertension I10 [place] [facility] [address] [address] Nov, [facility] [address] [address] Nov, Diabetes E11.9 ; Fibromyalgia M79.7 ; Hypertension I10 ; Insomnia G47.00 ; Depression F32.9 and Hypercholesterolemia E78.0 [facility] [address] [address] Oct, Hypercholesterolemia E78.0 [facility] [address] [address] September, [facility] [id number] [place] [address] Aug, Diabetes E11.9 ; Fibromyalgia M79.7 ; Hypertension I10 ; Insomnia G47.00 ; Depression F32.9 ; Shoulder pain M25.519 ; Hypercholesterolemia E78.0 and Pain in right shoulder M25.511 [place] [facility] [address] [address] Jul, [facility] [address] [address] Jun, Hypercholesterolemia E78.0 [facility] [address] [address] Jun, [facility] [facility] [address] [address] May, [facility] [address] [address] May, Well woman exam Z01.[address] [address] May, Hypertension I10 ; Diabetes E11.9 ; Fibromyalgia M79.7 ; Insomnia G47.00 ; Depression F32.9 and Hypercholesterolemia E78.0 [facility] [id number] [place] [address] Apr, [facility] [address] [address] Apr, Fibromyalgia M79.7 ; Hypertension I10 ; Bronchitis J40 ; Insomnia G47.00 ; Depression F32.9 ; Shoulder pain M25.519 and Hypercholesterolemia E78.0 [facility] [id number] [place] [address] Mar, Hyperlipemia E78.5 [facility] [address] [address] Mar, Diabetes E11.9 ; Hypertension I10 ; Insomnia G47.00 ; Depression F32.9 and Shoulder pain M25.519 [facility] [address] [address] Mar, [facility] [address] [address] Feb, [facility] [address] [address] Feb, Diabetes E11.9 ; Encounter for immunization Z23 ; Fibromyalgia M79.7 ; Hypertension I10 ; Bronchitis J40 and Insomnia G47.00 [facility] [address] [address] Feb, Bronchitis J40 [facility] [address] [address] Jan, Bronchitis 490 [facility] [address] [address] Aug, [facility] [address] [address] Aug, [facility] [address] [address] Jul, [facility] [id number] [place] [address] Jul, [facility] [address] [address] Jul, [facility] [address] [address] Jul, [facility] [address] [address] Jun, [facility] [address] [address] Jun, [facility] [address] [place] [address] May, [facility] [place] [facility] [address] [id number] [place] [address] May, [facility] [place] [facility] [address] [id number] [place] [address] Apr, [facility] [place] [facility] [address] [id number] [place] [address] Apr, [facility] [place] [facility] [address] [id number] [place] [address] Apr, [facility] [place] [facility] [address] [id number] [place] [address] Apr, [facility] [place] [facility] [address] [id number] [place] [address] Apr, [facility] [place] [facility] [address] [id number] [place] [address] Apr, [facility] [place] [facility] [address] [id number] [place] [address] Feb, [facility] [place] [facility] [address] [id number] [place] [address] Feb, [facility] [place] [facility] [address] [id number] [place] [address] Jan, [facility] [place] [facility] [address] [id number] [place] [address] Jan, [facility] [place] [facility] [address] [id number] [place] [address] Dec, [facility] [place] [facility] [address] [id number] [place] [address] Dec, [facility] [place] [facility] [address] [id number] [place] [address] September, [facility] [place] [facility] [address] [id number] [place] [address] September, [facility] [place] [facility] [address] [id number] [place] [address] September, [facility] [place] [facility] [address] [id number] [place] [address] September, [facility] [place] [facility] [address] [id number] [place] [address] September, [facility] [place] [facility] [address] [id number] [place] [address] September, [facility] [place] [facility] [address] [id number] [place] [address] Aug, [facility] [place] [facility] [address] [id number] [place] [address] Aug, [facility] [place] [facility] [address] [id number] [place] [address] Jul, [facility] [place] [facility] [address] [id number] [place] [address] Jul, [facility] [place] [facility] [address] [id number] [place] [address] May, [facility] [place] [facility] [address] [id number] [place] [address] May, [facility] [place] [facility] [address] [id number] [place] [address] May, [facility] [place] [facility] [address] [id number] [place] [address] May, [facility] [place] [facility] [address] [id number] [place] [address] May, [facility] [place] [facility] [address] [id number] [place] [address] May, [facility] [place] [facility] [address] [id number] [place] [address] Apr, [facility] [place] [facility] [address] [id number] [place] [address] Apr, [facility] [place] [facility] [address] [id number] [place] [address] Apr, [facility] [place] [facility] [address] [id number] [place] [address] Apr, [facility] [place] [facility] [address] [id number] [place] [address] Apr, [facility] [place] [facility] [address] [id number] [place] [address] Apr, [facility] [place] [facility] [address] [id number] [place] [address] Apr, [facility] [place] [facility] [address] [id number] [place] [address] Apr, [facility] [place] [facility] [address] [id number] [place] [address] Feb, [facility] [place] [facility] [address] [id number], [place] [address] Feb, [facility] [place] [facility] [address] [id number] [place] [address] Feb, [facility] [place] [facility] [address] [id number] [place] [address] Feb, [facility] [place] [facility] [address] [id number], [place] [address] Feb, [facility] [place] [facility] [address] [id number], [place] [address] 10 Feb, 2013 [facility] [place] [facility] [address] [id number] [place] [address] Feb, [facility] [place] [facility] [address] [id number], [place] [address] Feb, [facility] [place] [facility] [address] [id number], [place] [address] Nov, [facility] [place] [facility] [address] [id number] [place] [address] Nov, [facility] [address] [id number] [place] [address] Oct, [facility] [address] [id number] [place] [address] Oct, [facility] [address] [id number] [place] [address] Oct, [facility] [address] [id number] [place] [address] September, [facility] [address] [id number] [place] [address] September, [facility] [address] [id number] [place] [address] September, [facility] [address] [id number] [place] [address] September, [facility] [address] [id number] [place] [address] September, [facility] [address] [id number] [place] [address] September, [facility] [address] [id number] [place] [address] September, [facility] [address] [id number] [place] [address] September, [facility] [address] [id number] [place] [address] September, [facility] [address] [id number] [place] [address] September, [facility] [address] [id number] [place] [address] Aug, [facility] [address] [id number] [place] [address] Jul, [facility] [place] [facility] [address] [id number] [place] [address] Jun, [facility] [place] [facility] [address] [id number] [place] [address] Jun, [facility] [place] [facility] [address] [id number] [place] [address] May, [facility] [place] [facility] [address] [id number] [place] [address] May, [facility] [place] [facility] [address] [id number] [place] [address] Mar, [facility] [place] [facility] [address] [id number] [place] [address] Mar, [facility] [place] [facility] [address] [id number] [place] [address] Mar, [facility] [place] [facility] [address] [id number], [place] [address] Mar, [facility] [place] [facility] [address] [id number] [place] [address] Feb, [facility] [place] [facility] [address] [facility] [id number], [place] [address] Feb, [facility] [place] [facility] [address] [id number], [place] [address] Feb, [facility] [place] [facility] [address] [id number], [place] [address] Feb, [facility] [place] [facility] [address] [id number], [place] [address] Feb, [facility] [place] [facility] [address] [id number], [place] [address] Feb, [facility] [place] [facility] [address] [facility] [id number], [place] [address] Feb, [facility] [place] [facility] [address] [id number], [place] [address] 18 Jan, 2012 [facility] [address] [id number] [place] [address] 14 Jan, 2012 [facility] [address] [id number] [place] [address] 10 Jan, 2012 [facility] [address] [id number] [place] [address] 30 Dec, 2011 [facility] [address] [id number] [place] [address] Dec, [facility] [address] [id number] [place] [address] Dec, [facility] [address] [id number] [place] [address] Nov, [facility] [id number] [place] [address] Oct, [facility] [address] [id number] [place] [address] Oct, [facility] [address] [id number] [place] [address] Oct, [facility] [address] [id number] [place] [address] Oct, [facility] [id number] [place] [address] Oct, [facility] [address] [facility] [id number] [place] [address] Aug, [facility] [place] [facility] [address] [id number] [place] [address] Aug, [facility] [place] [facility] [address] [facility] [id number] [place] [address] Jul, [facility] [address] [id number] [place] [address] Jun, [facility] [address] [id number][place] [id number] 14 Jun, 2011 [facility] [address] [id number], [place] [address] May, [facility] [id number], [place] [address] May, [facility] [address] [id number], [place] [address] May, [facility] [id number], [place] [address] May, [facility] [id number], [place] [address] May, [facility] [id number], [place] [address] Apr, [facility] [id number], [place] [address] Apr, [facility] [id number], [place] [address] Apr, [facility] [id number], [place] [address] Apr, [facility] [address] [id number], [place] [address] Apr, [facility] [address] [id number] [address] Apr, [facility] [address] [id number], [place] [address] Apr, [facility] [address] [id number], [place] [address] Apr, IMMUNIZATIONS No Known Immunizations SOCIAL HISTORY Never Assessed REASON FOR VISIT EMR-[facility] PLAN OF CARE VITAL SIGNS MEDICATIONS Unknown [...]
--- OUTSIDE RECORDS SUMMARY | 2018-09-19 20:29 | XMS REPORT ---
Author Author Migration, Doctor Organization [facility] Address Unknown Phone Unavailable Care Team Providers Care Orthodontic Treatment Coordinator Name Role Phone Migration, Doctor Unavailable Unavailable PROBLEMS Type Condition ICD9-CM Code [id number] Code Onset Dates Condition Status SNOMED Code Problem Hypertension I10 Active 77874286 Problem Insomnia G47.00 Active 253807501 Problem Hyperlipidemia LDL goal <70 E78.5 Active 93060602 Problem Long-term use of high-risk medication Z79.899 Active 511121998 Problem Arthritis M19.90 Active 4834546 Problem Hypercholesterolemia E78.0 Active 30774222 Problem Anxiety associated with depression F41.8 Active 483707625 Problem Type 2 diabetes mellitus with other specified complication, without long- term current use of insulin E11.69 Active 87013608 Problem Fibromyalgia M79.7 Active 96573598 Problem Adjustment disorder with anxiety F43.22 Active 04196364 Problem Chronic maxillary sinusitis J32.0 Active 21359859 Problem Overweight (BMI 25.0-29.9) E66.3 Active 391024529 Problem Chronic fatigue R53.82 Active 52054666 ALLERGIES No Information ENCOUNTERS Encounter Location Date Diagnosis [facility] [id number] [place] [address] Jun, Hypertension I10 [facility] [id number] [place] [address] Jun, [facility] [id number] [place] [address] Jun, Hyperlipidemia LDL goal <70 E78.5 [facility] [id number] [place] [address] May, Fibromyalgia M79.7 and Hypertension I10 [facility] [id number] [place] [address] May, Type 2 diabetes mellitus with other specified complication, without long-term current use of insulin E11.69 [facility] [id number] [place] [address] Apr, Fibromyalgia M79.7 [facility] [id number] [place], [place] [address] 07 Apr, 2018 Well woman exam without gynecological exam Z00.00 ; Breast cancer screening Z12.31 and Screening for osteoporosis Z13.820 [facility] [id number] [place] [address] Apr, Hypertension I10 [facility] [id number] [place] [address] Mar, Fibromyalgia M79.7 [facility] [id number] [place] [address] Mar, Hypertension I10 [facility] [id number] [place] [address] Mar, Hypertension I10 [facility] [id number] [place] [address] Feb, Hypertension I10 ; Hyperlipidemia LDL goal <70 E78.5 and Type 2 diabetes mellitus with other specified complication, without long-term current use of insulin E11.69 [facility] [id number] [place] [address] Feb, Hypertension I10 [facility] [id number] [place] [address] Feb, Fibromyalgia M79.7 [facility] [id number] [place] [address] Jan, Hypertension I10 ; Trochanteric bursitis, right hip M70.61 ; Trochanteric bursitis of left hip M70.62 ; Chronic fatigue R53.82 ; Type 2 diabetes mellitus without complication, without long-term current use of insulin E11.9 and Hypercholesterolemia E78.0 [facility] [id number] [place] [address] Dec, Fibromyalgia M79.7 [facility] [id number] [place] [address] Nov, Hyperlipidemia LDL goal <70 E78.5 [facility] [id number] [place] [address] Nov, Hyperlipidemia LDL goal <70 E78.5 [facility] [address] [address] Nov, Hypercholesterolemia E78.0 [facility] [id number] [place] [address] Oct, Hyperlipidemia LDL goal <70 E78.5 [facility] [id number] [place] [address] Oct, Type 2 diabetes mellitus without complication, without long-term current use of insulin E11.9 ; Hyperlipidemia LDL goal <70 E78.5 ; Hypertension I10 ; Fibromyalgia M79.7 and Chronic fatigue R53.82 [facility] [id number] [place] [address] Oct, Type 2 diabetes mellitus without complication, without long-term current use of insulin E11.9 ; Hyperlipidemia LDL goal <70 E78.5 ; Hypertension I10 ; Fibromyalgia M79.7 ; Chronic fatigue R53.82 and Overweight (BMI 25.0-29.9) E66.3 [facility] [id number] [place] [address] Aug, Hypertension I10 and Dyshidrotic eczema L30.1 [facility] [id number] [place] [address] Jun, Hyperlipidemia LDL goal <70 E78.5 [facility] [id number] [place] [address] Jun, Arthritis M19.90 [facility] [id number] [place] [address] May, Hypertension I10 ; Anxiety associated with depression F41.8 ; Hyperlipidemia LDL goal <70 E78.5 and Chronic maxillary sinusitis J32.0 [facility] [address] [address] May, Acute non-recurrent maxillary sinusitis J01.00 and Sore throat J02.[address] [address] May, Dysthymia F34.1 [facility] [address] [address] Apr, Hypertension I10 [address] [address] Apr, Cough R05 ; Sore throat J02.9 and Bronchitis J40 [address] [address] Mar, Anxiety associated with depression F41.8 ; Adjustment disorder with anxiety F43.22 and Depression F32.9 [facility] [id number] [place] [address] Mar, [address] [address] Mar, Type 2 diabetes mellitus without complication, without long-term current use of insulin E11.9 ; Hypertension I10 ; Hyperlipidemia LDL goal <70 E78.5 ; Arthritis M19.90 ; Long-term use of high-risk medication Z79.899 and Dysthymia F34.1 [facility] [id number] [place] [address] Mar, [address] [address] Mar, [facility] [id number] [place] [address] Feb, [facility] [address] [address] Feb, Acute right hip pain M25.551 and Hypertension I10 [facility] [id number] [place] [address] Feb, Diabetes E11.9 [facility] [id number] [place] [address] Jan, Hypertension I10 [facility] [id number] [place] [address] Jan, Hypertension I10 [facility] [id number] [place] [address] Dec, Dysuria R30.0 [facility] [id number] [place] [address] Dec, [facility] [id number] [place] [address] Dec, Fibromyalgia M79.7 [facility] [id number] [place] [address] Dec, Acute recurrent frontal sinusitis J01.11 and Hypertension I10 [facility] [id number] [place] [address] Dec, Hypertension I10 [facility] [id number] [place] [address] Dec, [facility] [id number] [place] [address] Dec, Hypertension I10 [facility] [id number] [place] [address] Nov, [facility] [id number] [place] [address] Oct, Fibromyalgia M79.7 ; Hypertension I10 ; Depression F32.9 ; Hypercholesterolemia E78.0 ; Anxiety associated with depression F41.8 and Diabetes E11.9 [facility] [id number] [place] [address] September, Essential hypertension I10 ; Diabetes E11.9 ; Anxiety associated with depression F41.8 and Hypercholesterolemia E78.0 [facility] [id number] [place] [address] Aug, [facility] [id number] [place] [address] Aug, Diabetes E11.9 [facility] [id number] [place] [address] Aug, [facility] [id number] [place] [address] Jul, Acute non-recurrent maxillary sinusitis J01.00 [facility] [id number] [place] [address] Jul, Anxiety associated with depression F41.8 [facility] [id number] [place] [address] Jun, Anxiety associated with depression F41.8 and Hypercholesterolemia E78.0 [facility] [id number] [place] [address] May, Diabetes E11.9 ; Insomnia G47.00 ; Fibromyalgia M79.7 ; Hypercholesterolemia E78.0 ; Anxiety associated with depression F41.8 and Essential hypertension I10 [facility] [id number] [place] [address] May, [facility] [id number] [place] [address] May, [facility] [id number] [place] [address] Mar, [facility] [id number] [place] [address] Mar, Hypertension I10 [facility] [id number] [place] [address] Feb, [facility] [id number] [place] [address] Feb, [facility] [address] [address] Feb, Anxiety associated with depression F41.8 ; Chest tightness R07.89 and Elevated blood pressure I10 [facility] [address] [address] Feb, Encounter for immunization Z23 ; Bronchitis J40 ; Diabetes E11.9 ; Hypertension I10 ; Insomnia G47.00 ; Hypercholesterolemia E78.0 ; Depression F32.9 and Fibromyalgia M79.7 [facility] [address] [address] Jan, Bronchitis J40 and Depression F32.9 [facility] [address] [address] Jan, Bronchitis J40 [facility] [address] [address] Dec, [facility] [address] [address] Dec, [facility] [address] [address] Nov, Acute non-recurrent frontal sinusitis J01.10 and Hypertension I10 [facility] [address] [address] Nov, [facility] [address] [address] Nov, Diabetes E11.9 ; Fibromyalgia M79.7 ; Hypertension I10 ; Insomnia G47.00 ; Depression F32.9 and Hypercholesterolemia E78.0 [facility] [address] [address] Oct, Hypercholesterolemia E78.0 [facility] [address] [address] September, [facility] [id number] [place] [address] Aug, Diabetes E11.9 ; Fibromyalgia M79.7 ; Hypertension I10 ; Insomnia G47.00 ; Depression F32.9 ; Shoulder pain M25.519 ; Hypercholesterolemia E78.0 and Pain in right shoulder M25.511 [facility] [address] [address] Jul, [facility] [address] [address] Jun, Hypercholesterolemia E78.0 [facility] [address] [address] Jun, [facility] [address] [address] May, [facility] [address] [address] May, Well woman exam Z01.[address] [address] May, Hypertension I10 ; Diabetes E11.9 ; Fibromyalgia M79.7 ; Insomnia G47.00 ; Depression F32.9 and Hypercholesterolemia E78.0 [facility] [id number] [place] [address] Apr, [facility] [address] [address] Apr, Fibromyalgia M79.7 ; Hypertension I10 ; Bronchitis J40 ; Insomnia G47.00 ; Depression F32.9 ; Shoulder pain M25.519 and Hypercholesterolemia E78.0 [facility] [id number] [place] [address] Mar, Hyperlipemia E78.5 [facility] [address] [address] Mar, Diabetes E11.9 ; Hypertension I10 ; Insomnia G47.00 ; Depression F32.9 and Shoulder pain M25.519 [facility] [address] [address] Mar, [facility] [address] [address] Feb, [facility] [address] [address] Feb, Diabetes E11.9 ; Encounter for immunization Z23 ; Fibromyalgia M79.7 ; Hypertension I10 ; Bronchitis J40 and Insomnia G47.00 [facility] [address] [address] Feb, Bronchitis J40 [facility] [address] [address] Jan, Bronchitis 490 [facility] [address] [address] Aug, [facility] [address] [address] Aug, [facility] [address] [address] Jul, [facility] [id number] [place] [address] Jul, [facility] [address] [address] Jul, [facility] [address] [address] Jul, [facility] [address] [address] Jun, [facility] [address] [address] Jun, [facility] [address] [place] [address] May, [facility] [place] [facility] [address] [id number] [place] [address] May, [facility] [place] [facility] [address] [id number] [place] [address] Apr, [facility] [place] [facility] [address] [id number] [place] [address] Apr, [facility] [place] [facility] [address] [id number] [place] [address] Apr, [facility] [place] [facility] [address] [id number] [place] [address] Apr, [facility] [place] [facility] [address] [id number] [place] [address] Apr, [facility] [place] [facility] [address] [id number] [place] [address] Apr, [facility] [place] [facility] [address] [id number] [place] [address] Feb, [facility] [place] [facility] [address] [id number] [place] [address] Feb, [facility] [place] [facility] [address] [id number] [place] [address] Jan, [facility] [place] [facility] [address] [id number] [place] [address] Jan, [facility] [place] [facility] [address] [id number] [place] [address] Dec, [facility] [place] [facility] [address] [id number] [place] [address] Dec, [facility] [place] [facility] [address] [id number] [place] [address] September, [facility] [place] [facility] [address] [id number] [place] [address] September, [facility] [place] [facility] [address] [id number] [place] [address] September, [facility] [place] [facility] [address] [id number] [place] [address] September, [facility] [place] [facility] [address] [id number] [place] [address] September, [facility] [place] [facility] [address] [id number] [place] [address] September, [facility] [place] [facility] [address] [id number] [place] [address] Aug, [facility] [place] [facility] [address] [id number] [place] [address] Aug, [facility] [place] [facility] [address] [id number] [place] [address] Jul, [facility] [place] [facility] [address] [id number] [place] [address] Jul, [facility] [place] [facility] [address] [id number] [place] [address] May, [facility] [place] [facility] [address] [id number] [place] [address] May, [facility] [place] [facility] [address] [id number] [place] [address] May, [facility] [place] [facility] [address] [id number] [place] [address] May, [facility] [place] [facility] [address] [id number] [place] [address] May, [facility] [place] [facility] [address] [id number] [place] [address] May, [facility] [place] [facility] [address] [id number] [place] [address] Apr, [facility] [place] [facility] [address] [id number] [place] [address] Apr, [facility] [place] [facility] [address] [id number] [place] [address] Apr, [facility] [place] [facility] [address] [id number] [place] [address] Apr, [facility] [place] [facility] [address] [id number] [place] [address] Apr, [facility] [place] [facility] [address] [id number] [place] [address] Apr, [facility] [place] [facility] [address] [id number] [place] [address] Apr, [facility] [place] [facility] [address] [id number] [place] [address] Apr, [facility] [place] [facility] [address] [id number] [place] [address] Feb, [facility] [place] [facility] [address] [id number] [address] Feb, [facility] [place] [facility] [address] [id number] [place] [address] Feb, [facility] [place] [facility] [address] [id number] [place] [address] Feb, [facility] [place] [facility] [address] [id number] [address] Feb, [facility] [place] [facility] [address] [id number] [place] [address] 10 Feb, 2013 [facility] [place] [facility] [address] [id number] [place] [address] Feb, [facility] [place] [facility] [address] [id number] [address] Feb, [facility] [place] [facility] [address] [id number] [place] [address] Nov, [facility] [place] [facility] [address] [id number] [place] [address] Nov, [facility] [address] [id number] [place] [address] Oct, [facility] [address] [id number] [place] [address] Oct, [facility] [address] [id number] [place] [address] Oct, [facility] [address] [id number] [place] [address] September, [facility] [address] [id number] [place] [address] September, [facility] [address] [id number] [place] [address] September, [facility] [address] [id number] [place] [address] September, [facility] [address] [id number] [place] [address] September, [facility] [address] [id number] [place] [address] September, [facility] [address] [id number] [place] [address] September, [facility] [address] [id number] [place] [address] September, [facility] [address] [id number] [place] [address] September, [facility] [address] [id number] [place] [address] September, [facility] [address] [id number] [place] [address] Aug, [facility] [address] [id number] [place] [address] Jul, [facility] [place] [facility] [address] [id number] [place] [address] Jun, [facility] [place] [facility] [address] [id number] [place] [address] Jun, [facility] [place] [facility] [address] [id number] [place] [address] May, [facility] [place] [facility] [address] [id number] [place] [address] May, [facility] [place] [facility] [address] [id number] [place] [address] Mar, [facility] [place] [facility] [address] [id number] [place] [address] Mar, [facility] [place] [facility] [address] [id number] [place] [address] Mar, [facility] [place] [facility] [address] [id number] [place] [address] Mar, [facility] [place] [facility] [address] [id number] [place] [address] Feb, [facility] [place] [facility] [address] [facility] [id number] [place] [address] Feb, [facility] [place] [facility] [address] [id number] [place] [address] Feb, [facility] [place] [facility] [address] [id number] [place] [address] Feb, [facility] [place] [facility] [address] [id number] [place] [address] Feb, [facility] [place] [facility] [address] [id number] [place] [address] Feb, [facility] [place] [facility] [address] [facility] [id number] [place] [address] Feb, [facility] [place] [facility] [address] [id number] [place] [address] 18 Jan, 2012 [facility] [address] [id number] [place] [address] 14 Jan, 2012 [facility] [address] [id number] [place] [address] 10 Jan, 2012 [facility] [id number] [address] 30 Dec, 2011 [facility] [address] [id number] [place] [address] Dec, [facility] [address] [id number] [place] [address] Dec, [facility] [address] [id number] [place] [address] Nov, [facility] [id number] [address] Oct, [facility] [address] [id number] [place] [address] Oct, [facility] [address] [id number] [address] Oct, [facility] [address] [id number] [address] Oct, [facility] [id number] [address] Oct, [facility] [address] [facility] [id number] [place] [address] Aug, [facility] [place] [facility] [address] [id number] [address] Aug, [facility] [place] [facility] [address] [facility] [id number] [place] [address] Jul, [facility] [id number] [address] Jun, [facility] [address] [id number] [id number] 14 Jun, 2011 [facility] [address] [id number] [address] May, [facility] [id number] [address] May, [facility] [address] [id number] [address] May, [facility] [id number] [address] May, [facility] [id number] [address] May, [facility] [id number] [address] Apr, [facility] [id number] [address] Apr, [facility] [id number] [address] Apr, [facility] [id number] [address] Apr, [facility] [address] [id number] [address] Apr, [facility] [address] [id number] [address] Apr, [facility] [id number] [place] [address] Apr, [facility] [address] [id number] [address] Apr, IMMUNIZATIONS No Known Immunizations SOCIAL HISTORY Never Assessed REASON FOR VISIT EMR-[facility] [place] PLAN OF CARE VITAL SIGNS MEDICATIONS Unknown [...]
--- OUTSIDE RECORDS SUMMARY | 2018-09-19 20:29 | XMS REPORT ---
Author Author Migration, Doctor Organization [facility] Address Unknown Phone Unavailable Care Team Providers Care Well Tester Name Role Phone Migration, Doctor Unavailable Unavailable PROBLEMS Type Condition ICD9-CM Code AFK60-FN Code Onset Dates Condition Status SNOMED Code Problem Hypertension I10 Active 79060221 Problem Insomnia G47.00 Active 541973828 Problem Hyperlipidemia LDL goal <70 E78.5 Active 40797686 Problem Long-term use of high-risk medication Z79.899 Active 047012028 Problem Arthritis M19.90 Active 1963834 Problem Hypercholesterolemia E78.0 Active 80541525 Problem Anxiety associated with depression F41.8 Active 829825169 Problem Type 2 diabetes mellitus with other specified complication, without long- term current use of insulin E11.69 Active 05880939 Problem Fibromyalgia M79.7 Active 47430719 Problem Adjustment disorder with anxiety F43.22 Active 44510034 Problem Chronic maxillary sinusitis J32.0 Active 55092268 Problem Overweight (BMI 25.0-29.9) E66.3 Active 768651298 Problem Chronic fatigue R53.82 Active [id number] ALLERGIES No Information ENCOUNTERS Encounter Location Date Diagnosis [facility] [id number] [place] [id number] Jun, Hypertension I10 [facility] [id number] [place] [phone] Jun, [facility] [id number] [place] [address] Jun, Hyperlipidemia LDL goal <70 E78.5 [facility] [id number] [place] [address] May, Fibromyalgia M79.7 and Hypertension I10 [facility] [id number] [place] [address] May, Type 2 diabetes mellitus with other specified complication, without long-term current use of insulin E11.69 [facility] [id number] [place] [address] Apr, Fibromyalgia M79.7 [facility] [id number] [place], [place] [id number] 07 Apr, 2018 Well woman exam without gynecological exam Z00.00 ; Breast cancer screening Z12.31 and Screening for osteoporosis Z13.820 [facility] [id number] [place] [address] Apr, Hypertension I10 [facility] [id number] [place] [address] Mar, Fibromyalgia M79.7 [facility] [id number] [place] [address] Mar, Hypertension I10 [facility] [id number] [place] [address] Mar, Hypertension I10 [facility] [id number] [place] [address] Feb, Hypertension I10 ; Hyperlipidemia LDL goal <70 E78.5 and Type 2 diabetes mellitus with other specified complication, without long-term current use of insulin E11.69 [facility] [id number] [place] [address] Feb, Hypertension I10 [facility] [id number] [place] [address] Feb, Fibromyalgia M79.7 [facility] [id number] [place] [address] Jan, Hypertension I10 ; Trochanteric bursitis, right hip M70.61 ; Trochanteric bursitis of left hip M70.62 ; Chronic fatigue R53.82 ; Type 2 diabetes mellitus without complication, without long-term current use of insulin E11.9 and Hypercholesterolemia E78.0 [facility] [id number] [place] [address] Dec, Fibromyalgia M79.7 [facility] [id number] [place] [address] Nov, Hyperlipidemia LDL goal <70 E78.5 [facility] [id number] [place] [address] Nov, Hyperlipidemia LDL goal <70 E78.5 [facility] [address] [address] Nov, Hypercholesterolemia E78.0 [facility] [id number] [place] [address] Oct, Hyperlipidemia LDL goal <70 E78.5 [facility] [id number] [place] [address] Oct, Type 2 diabetes mellitus without complication, without long-term current use of insulin E11.9 ; Hyperlipidemia LDL goal <70 E78.5 ; Hypertension I10 ; Fibromyalgia M79.7 and Chronic fatigue R53.82 [facility] [id number] [place] [address] Oct, Type 2 diabetes mellitus without complication, without long-term current use of insulin E11.9 ; Hyperlipidemia LDL goal <70 E78.5 ; Hypertension I10 ; Fibromyalgia M79.7 ; Chronic fatigue R53.82 and Overweight (BMI 25.0-29.9) E66.3 [facility] [id number] [place] [address] Aug, Hypertension I10 and Dyshidrotic eczema L30.1 [facility] [id number] [place] [address] Jun, Hyperlipidemia LDL goal <70 E78.5 [facility] [id number] [place] [address] Jun, Arthritis M19.90 [facility] [id number] [place] [address] May, Hypertension I10 ; Anxiety associated with depression F41.8 ; Hyperlipidemia LDL goal <70 E78.5 and Chronic maxillary sinusitis J32.0 [facility] [address] [address] May, Acute non-recurrent maxillary sinusitis J01.00 and Sore throat J02.[address] [address] May, Dysthymia F34.1 [facility] [address] [address] Apr, Hypertension I10 [address] [address] Apr, Cough R05 ; Sore throat J02.9 and Bronchitis J40 [address] [address] Mar, Anxiety associated with depression F41.8 ; Adjustment disorder with anxiety F43.22 and Depression F32.9 [facility] [id number] [place] [address] Mar, [address] [address] Mar, Type 2 diabetes mellitus without complication, without long-term current use of insulin E11.9 ; Hypertension I10 ; Hyperlipidemia LDL goal <70 E78.5 ; Arthritis M19.90 ; Long-term use of high-risk medication Z79.899 and Dysthymia F34.1 [facility] [id number] [place] [address] Mar, [address] [address] Mar, [facility] [id number] [place] [address] Feb, [facility] [address] [address] Feb, Acute right hip pain M25.551 and Hypertension I10 [facility] [id number] [place] [address] Feb, Diabetes E11.9 [facility] [id number] [place] [address] Jan, Hypertension I10 [facility] [id number] [place] [address] Jan, Hypertension I10 [facility] [id number] [place] [address] Dec, Dysuria R30.0 [facility] [id number] [place] [address] Dec, [facility] [id number] [place] [address] Dec, Fibromyalgia M79.7 [facility] [id number] [place] [address] Dec, Acute recurrent frontal sinusitis J01.11 and Hypertension I10 [facility] [id number] [place] [address] Dec, Hypertension I10 [facility] [id number] [place] [address] Dec, [facility] [id number] [place] [address] Dec, Hypertension I10 [facility] [id number] [place] [address] Nov, [facility] [id number] [place] [address] Oct, Fibromyalgia M79.7 ; Hypertension I10 ; Depression F32.9 ; Hypercholesterolemia E78.0 ; Anxiety associated with depression F41.8 and Diabetes E11.9 [facility] [id number] [place] [address] September, Essential hypertension I10 ; Diabetes E11.9 ; Anxiety associated with depression F41.8 and Hypercholesterolemia E78.0 [facility] [id number] [place] [address] Aug, [facility] [id number] [place] [address] Aug, Diabetes E11.9 [facility] [id number] [place] [address] Aug, [facility] [id number] [place] [address] Jul, Acute non-recurrent maxillary sinusitis J01.00 [facility] [id number] [place] [address] Jul, Anxiety associated with depression F41.8 [facility] [id number] [place] [address] Jun, Anxiety associated with depression F41.8 and Hypercholesterolemia E78.0 [facility] [id number] [place] [address] May, Diabetes E11.9 ; Insomnia G47.00 ; Fibromyalgia M79.7 ; Hypercholesterolemia E78.0 ; Anxiety associated with depression F41.8 and Essential hypertension I10 [facility] [id number] [place] [address] May, [facility] [id number] [place] [address] May, [facility] [id number] [place] [address] Mar, [facility] [id number] [place] [address] Mar, Hypertension I10 [facility] [id number] [place] [address] Feb, [facility] [id number] [place] [address] Feb, [facility] [address] [address] Feb, Anxiety associated with depression F41.8 ; Chest tightness R07.89 and Elevated blood pressure I10 [facility] [address] [address] Feb, Encounter for immunization Z23 ; Bronchitis J40 ; Diabetes E11.9 ; Hypertension I10 ; Insomnia G47.00 ; Hypercholesterolemia E78.0 ; Depression F32.9 and Fibromyalgia M79.7 [facility] [address] [address] Jan, Bronchitis J40 and Depression F32.9 [facility] [address] [address] Jan, Bronchitis J40 [facility] [address] [address] Dec, [facility] [address] [address] Dec, [facility] [address] [address] Nov, Acute non-recurrent frontal sinusitis J01.10 and Hypertension I10 [facility] [address] [address] Nov, [facility] [address] [address] Nov, Diabetes E11.9 ; Fibromyalgia M79.7 ; Hypertension I10 ; Insomnia G47.00 ; Depression F32.9 and Hypercholesterolemia E78.0 [facility] [address] [address] Oct, Hypercholesterolemia E78.0 [facility] [address] [address] September, [facility] [id number] [place] [address] Aug, Diabetes E11.9 ; Fibromyalgia M79.7 ; Hypertension I10 ; Insomnia G47.00 ; Depression F32.9 ; Shoulder pain M25.519 ; Hypercholesterolemia E78.0 and Pain in right shoulder M25.511 [facility] [address] [address] Jul, [facility] [address] [address] Jun, Hypercholesterolemia E78.0 [facility] [address] [address] Jun, [facility] [address] [address] May, [facility] [address] [address] May, Well woman exam Z01.[address] [address] May, Hypertension I10 ; Diabetes E11.9 ; Fibromyalgia M79.7 ; Insomnia G47.00 ; Depression F32.9 and Hypercholesterolemia E78.0 [facility] [id number] [place] [address] Apr, [facility] [address] [address] Apr, Fibromyalgia M79.7 ; Hypertension I10 ; Bronchitis J40 ; Insomnia G47.00 ; Depression F32.9 ; Shoulder pain M25.519 and Hypercholesterolemia E78.0 [facility] [id number] [place] [address] Mar, Hyperlipemia E78.5 [facility] [address] [address] Mar, Diabetes E11.9 ; Hypertension I10 ; Insomnia G47.00 ; Depression F32.9 and Shoulder pain M25.519 [facility] [address] [address] Mar, [facility] [address] [address] Feb, [facility] [address] [address] Feb, Diabetes E11.9 ; Encounter for immunization Z23 ; Fibromyalgia M79.7 ; Hypertension I10 ; Bronchitis J40 and Insomnia G47.00 [facility] [address] [address] Feb, Bronchitis J40 [facility] [address] [address] Jan, Bronchitis 490 [facility] [address] [address] Aug, [facility] [address] [address] Aug, [facility] [address] [address] Jul, [facility] [id number] [place] [address] Jul, [facility] [address] [address] Jul, [facility] [address] [address] Jul, [facility] [address] [address] Jun, [facility] [address] [address] Jun, [facility] [address] [place] [address] May, [facility] [place] [facility] [address] [id number] [place] [address] May, [facility] [place] [facility] [address] [id number] [place] [address] Apr, [facility] [place] [facility] [address] [id number] [place] [address] Apr, [facility] [place] [facility] [address] [id number] [place] [address] Apr, [facility] [place] [facility] [address] [id number] [place] [address] Apr, [facility] [place] [facility] [address] [id number] [place] [address] Apr, [facility] [place] [facility] [address] [id number] [place] [address] Apr, [facility] [place] [facility] [address] [id number] [place] [address] Feb, [facility] [place] [facility] [address] [id number] [place] [address] Feb, [facility] [place] [facility] [address] [id number] [place] [address] Jan, [facility] [place] [facility] [address] [id number] [place] [address] Jan, [facility] [place] [facility] [address] [id number] [place] [address] Dec, [facility] [place] [facility] [address] [id number] [place] [address] Dec, [facility] [place] [facility] [address] [id number] [place] [address] September, [facility] [place] [facility] [address] [id number] [place] [address] September, [facility] [place] [facility] [address] [id number] [place] [address] September, [facility] [place] [facility] [address] [id number] [place] [address] September, [facility] [place] [facility] [address] [id number] [place] [address] September, [facility] [place] [facility] [address] [id number] [place] [address] September, [facility] [place] [facility] [address] [id number] [place] [address] Aug, [facility] [place] [facility] [address] [id number] [place] [address] Aug, [facility] [place] [facility] [address] [id number] [place] [address] Jul, [facility] [place] [facility] [address] [id number] [place] [address] Jul, [facility] [place] [facility] [address] [id number] [place] [address] May, [facility] [place] [facility] [address] [id number] [place] [address] May, [facility] [place] [facility] [address] [id number] [place] [address] May, [facility] [place] [facility] [address] [id number] [place] [address] May, [facility] [place] [facility] [address] [id number] [place] [address] May, [facility] [place] [facility] [address] [id number] [place] [address] May, [facility] [place] [facility] [address] [id number] [place] [address] Apr, [facility] [place] [facility] [address] [id number] [place] [address] Apr, [facility] [place] [facility] [address] [id number] [place] [address] Apr, [facility] [place] [facility] [address] [id number] [place] [address] Apr, [facility] [place] [facility] [address] [id number] [place] [address] Apr, [facility] [place] [facility] [address] [id number] [place] [address] Apr, [facility] [place] [facility] [address] [id number] [place] [address] Apr, [facility] [place] [facility] [address] [id number] [place] [address] Apr, [facility] [place] [facility] [address] [id number] [place] [address] Feb, [facility] [place] [facility] [address] [id number], [place] [address] Feb, [facility] [place] [facility] [address] [id number] [place] [address] Feb, [facility] [place] [facility] [address] [id number] [place] [address] Feb, [facility] [place] [facility] [address] [id number], [place] [address] Feb, [facility] [place] [facility] [address] [id number], [place] [address] 10 Feb, 2013 [facility] [place] [facility] [address] [id number] [place] [address] Feb, [facility] [place] [facility] [address] [id number], [place] [address] Feb, [facility] [place] [facility] [address] [id number], [place] [address] Nov, [facility] [place] [facility] [address] [id number] [place] [address] Nov, [facility] [address] [id number] [place] [address] Oct, [facility] [address] [id number] [place] [address] Oct, [facility] [address] [id number] [place] [address] Oct, [facility] [address] [id number] [place] [address] September, [facility] [address] [id number] [place] [address] September, [facility] [address] [id number] [place] [address] September, [facility] [address] [id number] [place] [address] September, [facility] [address] [id number] [place] [address] September, [facility] [address] [id number] [place] [address] September, [facility] [address] [id number] [place] [address] September, [facility] [address] [id number] [place] [address] September, [facility] [address] [id number] [place] [address] September, [facility] [address] [id number] [place] [address] September, [facility] [address] [id number] [place] [address] Aug, [facility] [address] [id number] [place] [address] Jul, [facility] [place] [facility] [address] [id number] [place] [address] Jun, [facility] [place] [facility] [address] [id number] [place] [address] Jun, [facility] [place] [facility] [address] [id number] [place] [address] May, [facility] [place] [facility] [address] [id number] [place] [address] May, [facility] [place] [facility] [address] [id number] [place] [address] Mar, [facility] [place] [facility] [address] [id number] [place] [address] Mar, [facility] [place] [facility] [address] [id number] [place] [address] Mar, [facility] [place] [facility] [address] [id number], [place] [address] Mar, [facility] [place] [facility] [address] [id number] [place] [address] Feb, [facility] [place] [facility] [address] [facility] [id number], [place] [address] Feb, [facility] [place] [facility] [address] [id number], [place] [address] Feb, [facility] [place] [facility] [address] [id number], [place] [address] Feb, [facility] [place] [facility] [address] [id number], [place] [address] Feb, [facility] [place] [facility] [address] [id number], [place] [address] Feb, [facility] [place] [facility] [address] [facility] [id number], [place] [address] Feb, [facility] [place] [facility] [address] [id number], [place] [address] 18 Jan, 2012 [facility] [address] [id number] [place] [address] 14 Jan, 2012 [facility] [address] [id number] [place] [address] 10 Jan, 2012 [facility] [address] [id number] [place] [address] 30 Dec, 2011 [facility] [address] [id number] [place] [address] Dec, [facility] [address] [id number] [place] [address] Dec, [facility] [address] [id number] [place] [address] Nov, [facility] [id number] [place] [address] Oct, [facility] [address] [id number] [place] [address] Oct, [facility] [address] [id number] [place] [address] Oct, [facility] [address] [id number] [place] [address] Oct, [facility] [id number] [place] [address] Oct, [facility] [address] [facility] [id number] [place] [address] Aug, [facility] [place] [facility] [address] [id number] [place] [address] Aug, [facility] [place] [facility] [address] [facility] [id number] [place] [address] Jul, [facility] [address] [id number] [place] [address] Jun, [facility] [address] [id number] [id number] 14 Jun, 2011 [facility] [address] [id number], [place] [address] May, [facility] [id number], [place] [address] May, [facility] [address] [id number], [place] [address] May, [facility] [id number], [place] [address] May, [facility] [id number], [place] [address] May, [facility] [id number], [place] [address] Apr, [facility] [id number], [place] [address] Apr, [facility] [id number], [place] [address] Apr, [facility] [id number], [place] [address] Apr, [facility] [address] [id number], [place] [address] Apr, [facility] [address] [id number], [place] [address] Apr, [facility] [address] [id number], [place] [address] Apr, [facility] [address] [id number], [place] [address] Apr, IMMUNIZATIONS No Known Immunizations SOCIAL HISTORY Never Assessed [place] [place] V[place] SIGNS MEDICATIONS Unknown [...]
--- OUTSIDE RECORDS SUMMARY | 2018-09-19 20:29 | XMS REPORT ---
Author Author Migration, Doctor Organization [facility] Address Unknown Phone Unavailable Care Team Providers Care Aix Architect Name Role Phone Migration, Doctor Unavailable Unavailable PROBLEMS Type Condition ICD9-CM Code DIR61-EG Code Onset Dates Condition Status SNOMED Code Problem Hypertension I10 Active 79825667 Problem Insomnia G47.00 Active 303330589 Problem Hyperlipidemia LDL goal <70 E78.5 Active 00925815 Problem Long-term use of high-risk medication Z79.899 Active 266197746 Problem Arthritis M19.90 Active 6403895 Problem Hypercholesterolemia E78.0 Active 61965136 Problem Anxiety associated with depression F41.8 Active 151066646 Problem Type 2 diabetes mellitus with other specified complication, without long- term current use of insulin E11.69 Active 59331644 Problem Fibromyalgia M79.7 Active 68980115 Problem Adjustment disorder with anxiety F43.22 Active 07809868 Problem Chronic maxillary sinusitis J32.0 Active 09942579 Problem Overweight (BMI 25.0-29.9) E66.3 Active 856379499 Problem Chronic fatigue R53.82 Active 40450013 ALLERGIES No Information ENCOUNTERS Encounter Location Date Diagnosis [facility] [id number] [place] [address] Jun, Hypertension I10 [facility] [id number] [place] [address] Jun, [facility] [id number] [place] [address] Jun, Hyperlipidemia LDL goal <70 E78.5 [facility] [id number] [place] [address] May, Fibromyalgia M79.7 and Hypertension I10 [facility] [id number] [place] [address] May, Type 2 diabetes mellitus with other specified complication, without long-term current use of insulin E11.69 [facility] [id number] [place] [address] Apr, Fibromyalgia M79.7 [facility] [id number] [place] [id number] 07 Apr, 2018 Well woman exam without gynecological exam Z00.00 ; Breast cancer screening Z12.31 and Screening for osteoporosis Z13.820 [facility] [id number] [place] [address] Apr, Hypertension I10 [facility] [id number] [place] [address] Mar, Fibromyalgia M79.7 [facility] [id number] [place] [address] Mar, Hypertension I10 [facility] [id number] [place] [address] Mar, Hypertension I10 [facility] [id number] [place] [address] Feb, Hypertension I10 ; Hyperlipidemia LDL goal <70 E78.5 and Type 2 diabetes mellitus with other specified complication, without long-term current use of insulin E11.69 [facility] [id number] [place] [address] Feb, Hypertension I10 [facility] [id number] [place] [address] Feb, Fibromyalgia M79.7 [facility] [id number] [place] [address] Jan, Hypertension I10 ; Trochanteric bursitis, right hip M70.61 ; Trochanteric bursitis of left hip M70.62 ; Chronic fatigue R53.82 ; Type 2 diabetes mellitus without complication, without long-term current use of insulin E11.9 and Hypercholesterolemia E78.0 [facility] [id number] [place] [address] Dec, Fibromyalgia M79.7 [facility] [id number] [place] [address] Nov, Hyperlipidemia LDL goal <70 E78.5 [facility] [id number] [place] [address] Nov, Hyperlipidemia LDL goal <70 E78.5 [facility] [address] [address] Nov, Hypercholesterolemia E78.0 [facility] [id number] [place] [address] Oct, Hyperlipidemia LDL goal <70 E78.5 [facility] [id number] [place] [address] Oct, Type 2 diabetes mellitus without complication, without long-term current use of insulin E11.9 ; Hyperlipidemia LDL goal <70 E78.5 ; Hypertension I10 ; Fibromyalgia M79.7 and Chronic fatigue R53.82 [facility] [id number] [place] [address] Oct, Type 2 diabetes mellitus without complication, without long-term current use of insulin E11.9 ; Hyperlipidemia LDL goal <70 E78.5 ; Hypertension I10 ; Fibromyalgia M79.7 ; Chronic fatigue R53.82 and Overweight (BMI 25.0-29.9) E66.3 [facility] [id number] [place] [address] Aug, Hypertension I10 and Dyshidrotic eczema L30.1 [facility] [id number] [place] [address] Jun, Hyperlipidemia LDL goal <70 E78.5 [facility] [id number] [place] [address] Jun, Arthritis M19.90 [facility] [id number] [place] [address] May, Hypertension I10 ; Anxiety associated with depression F41.8 ; Hyperlipidemia LDL goal <70 E78.5 and Chronic maxillary sinusitis J32.0 [facility] [address] [address] May, Acute non-recurrent maxillary sinusitis J01.00 and Sore throat J02.[address] [address] May, Dysthymia F34.1 [facility] [address] [address] Apr, Hypertension I10 [address] [address] Apr, Cough R05 ; Sore throat J02.9 and Bronchitis J40 [address] [address] Mar, Anxiety associated with depression F41.8 ; Adjustment disorder with anxiety F43.22 and Depression F32.9 [facility] [id number] [place] [address] Mar, [address] [address] Mar, Type 2 diabetes mellitus without complication, without long-term current use of insulin E11.9 ; Hypertension I10 ; Hyperlipidemia LDL goal <70 E78.5 ; Arthritis M19.90 ; Long-term use of high-risk medication Z79.899 and Dysthymia F34.1 [facility] [id number] [place] [address] Mar, [address] [address] Mar, [facility] [id number] [place] [address] Feb, [facility] [address] [address] Feb, Acute right hip pain M25.551 and Hypertension I10 [facility] [id number] [place] [address] Feb, Diabetes E11.9 [facility] [id number] [place] [address] Jan, Hypertension I10 [facility] [id number] [place] [address] Jan, Hypertension I10 [facility] [id number] [place] [address] Dec, Dysuria R30.0 [facility] [id number] [place] [address] Dec, [facility] [id number] [place] [address] Dec, Fibromyalgia M79.7 [facility] [id number] [place] [address] Dec, Acute recurrent frontal sinusitis J01.11 and Hypertension I10 [facility] [id number] [place] [address] Dec, Hypertension I10 [facility] [id number] [place] [address] Dec, [facility] [id number] [place] [address] Dec, Hypertension I10 [facility] [id number] [place] [address] Nov, [facility] [id number] [place] [address] Oct, Fibromyalgia M79.7 ; Hypertension I10 ; Depression F32.9 ; Hypercholesterolemia E78.0 ; Anxiety associated with depression F41.8 and Diabetes E11.9 [facility] [id number] [place] [address] September, Essential hypertension I10 ; Diabetes E11.9 ; Anxiety associated with depression F41.8 and Hypercholesterolemia E78.0 [facility] [id number] [place] [address] Aug, [facility] [id number] [place] [address] Aug, Diabetes E11.9 [facility] [id number] [place] [address] Aug, [facility] [id number] [place] [address] Jul, Acute non-recurrent maxillary sinusitis J01.00 [facility] [id number] [place] [address] Jul, Anxiety associated with depression F41.8 [facility] [id number] [place] [address] Jun, Anxiety associated with depression F41.8 and Hypercholesterolemia E78.0 [facility] [id number] [place] [address] May, Diabetes E11.9 ; Insomnia G47.00 ; Fibromyalgia M79.7 ; Hypercholesterolemia E78.0 ; Anxiety associated with depression F41.8 and Essential hypertension I10 [facility] [id number] [place] [address] May, [facility] [id number] [place] [address] May, [facility] [id number] [place] [address] Mar, [facility] [id number] [place] [address] Mar, Hypertension I10 [facility] [id number] [place] [address] Feb, [facility] [id number] [place] [address] Feb, [facility] [address] [address] Feb, Anxiety associated with depression F41.8 ; Chest tightness R07.89 and Elevated blood pressure I10 [facility] [address] [address] Feb, Encounter for immunization Z23 ; Bronchitis J40 ; Diabetes E11.9 ; Hypertension I10 ; Insomnia G47.00 ; Hypercholesterolemia E78.0 ; Depression F32.9 and Fibromyalgia M79.7 [place] [address] [address] Jan, Bronchitis J40 and Depression F32.9 [facility] [address] [address] Jan, Bronchitis J40 [facility] [address] [address] Dec, [place] [address] [address] Dec, [place] [address] [address] Nov, Acute non-recurrent frontal sinusitis J01.10 and Hypertension I10 [place] [address] [address] Nov, [facility] [facility] [address] [address] Nov, Diabetes E11.9 ; Fibromyalgia M79.7 ; Hypertension I10 ; Insomnia G47.00 ; Depression F32.9 and Hypercholesterolemia E78.0 [place] [address] [address] Oct, Hypercholesterolemia E78.0 [facility] [address] [address] September, [facility] [id number] [place] [address] Aug, Diabetes E11.9 ; Fibromyalgia M79.7 ; Hypertension I10 ; Insomnia G47.00 ; Depression F32.9 ; Shoulder pain M25.519 ; Hypercholesterolemia E78.0 and Pain in right shoulder M25.511 [place] [address] [address] Jul, [facility] [address] [address] Jun, Hypercholesterolemia E78.0 [facility] [address] [address] Jun, [facility] [address] [address] May, [facility] [facility] [address] [address] May, Well woman exam Z01.[address] [address] May, Hypertension I10 ; Diabetes E11.9 ; Fibromyalgia M79.7 ; Insomnia G47.00 ; Depression F32.9 and Hypercholesterolemia E78.0 [facility] [id number] [place] [address] Apr, [facility] [address] [address] Apr, Fibromyalgia M79.7 ; Hypertension I10 ; Bronchitis J40 ; Insomnia G47.00 ; Depression F32.9 ; Shoulder pain M25.519 and Hypercholesterolemia E78.0 [facility] [id number] [place] [address] Mar, Hyperlipemia E78.5 [place] [address] [address] Mar, Diabetes E11.9 ; Hypertension I10 ; Insomnia G47.00 ; Depression F32.9 and Shoulder pain M25.519 [facility] [address] [address] Mar, [facility] [address] [address] Feb, [facility] [address] [address] Feb, Diabetes E11.9 ; Encounter for immunization Z23 ; Fibromyalgia M79.7 ; Hypertension I10 ; Bronchitis J40 and Insomnia G47.00 [facility] [address] [address] Feb, Bronchitis J40 [facility] [address] [address] Jan, Bronchitis 490 [facility] [address] [address] Aug, [facility] [address] [address] Aug, [facility] [address] [address] Jul, [facility] [id number] [place] [address] Jul, [facility] [address] [address] Jul, [facility] [address] [address] Jul, [facility] [address] [address] Jun, [facility] [address] [address] Jun, [facility] [address] [place] [address] May, [facility] [place] [facility] [address] [id number] [place] [address] May, [facility] [place] [facility] [address] [id number] [place] [address] Apr, [facility] [place] [facility] [address] [id number] [place] [address] Apr, [facility] [place] [facility] [address] [id number] [place] [address] Apr, [facility] [place] [facility] [address] [id number] [place] [address] Apr, [facility] [place] [facility] [address] [id number] [place] [address] Apr, [facility] [place] [facility] [address] [id number] [place] [address] Apr, [facility] [place] [facility] [address] [id number] [place] [address] Feb, [facility] [place] [facility] [address] [id number] [place] [address] Feb, [facility] [place] [facility] [address] [id number] [place] [address] Jan, [facility] [place] [facility] [address] [id number] [place] [address] Jan, [facility] [place] [facility] [address] [id number] [place] [address] Dec, [facility] [place] [facility] [address] [id number] [place] [address] Dec, [facility] [place] [facility] [address] [id number] [place] [address] September, [facility] [place] [facility] [address] [id number] [place] [address] September, [facility] [place] [facility] [address] [id number] [place] [address] September, [facility] [place] [facility] [address] [id number] [place] [address] September, [facility] [place] [facility] [address] [id number] [place] [address] September, [facility] [place] [facility] [address] [id number] [place] [address] September, [facility] [place] [facility] [address] [id number] [place] [address] Aug, [facility] [place] [facility] [address] [id number] [place] [address] Aug, [facility] [place] [facility] [address] [id number] [place] [address] Jul, [facility] [place] [facility] [address] [id number] [place] [address] Jul, [facility] [place] [facility] [address] [id number] [place] [address] May, [facility] [place] [facility] [address] [id number] [place] [address] May, [facility] [place] [facility] [address] [id number] [place] [address] May, [facility] [place] [facility] [address] [id number] [place] [address] May, [facility] [place] [facility] [address] [id number] [place] [address] May, [facility] [place] [facility] [address] [id number] [place] [address] May, [facility] [place] [facility] [address] [id number] [place] [address] Apr, [facility] [place] [facility] [address] [id number] [place] [address] Apr, [facility] [place] [facility] [address] [id number] [place] [address] Apr, [facility] [place] [facility] [address] [id number] [place] [address] Apr, [facility] [place] [facility] [address] [id number] [place] [address] Apr, [facility] [place] [facility] [address] [id number] [place] [address] Apr, [facility] [place] [facility] [address] [id number] [place] [address] Apr, [facility] [place] [facility] [address] [id number] [place] [address] Apr, [facility] [place] [facility] [address] [id number] [place] [address] Feb, [facility] [place] [facility] [address] [id number], [place] [address] Feb, [facility] [place] [facility] [address] [id number] [place] [address] Feb, [facility] [place] [facility] [address] [id number] [place] [address] Feb, [facility] [place] [facility] [address] [id number], [place] [address] Feb, [facility] [place] [facility] [address] [id number], [place] [address] 10 Feb, 2013 [facility] [place] [facility] [address] [id number] [place] [address] Feb, [facility] [place] [facility] [address] [id number], [place] [address] Feb, [facility] [place] [facility] [address] [id number], [place] [address] Nov, [facility] [place] [facility] [address] [id number] [place] [address] Nov, [facility] [address] [id number] [place] [address] Oct, [facility] [address] [id number] [place] [address] Oct, [facility] [address] [id number] [place] [address] Oct, [facility] [address] [id number] [place] [address] September, [facility] [address] [id number] [place] [address] September, [facility] [address] [id number] [place] [address] September, [facility] [address] [id number] [place] [address] September, [facility] [address] [id number] [place] [address] September, [facility] [address] [id number] [place] [address] September, [facility] [address] [id number] [place] [address] September, [facility] [address] [id number] [place] [address] September, [facility] [address] [id number] [place] [address] September, [facility] [address] [id number] [place] [address] September, [facility] [address] [id number] [place] [address] Aug, [facility] [address] [id number] [place] [address] Jul, [facility] [place] [facility] [address] [id number] [place] [address] Jun, [facility] [place] [facility] [address] [id number] [place] [address] Jun, [facility] [place] [facility] [address] [id number] [place] [address] May, [facility] [place] [facility] [address] [id number] [place] [address] May, [facility] [place] [facility] [address] [id number] [place] [address] Mar, [facility] [place] [facility] [address] [id number] [place] [address] Mar, [facility] [place] [facility] [address] [id number] [place] [address] Mar, [facility] [place] [facility] [address] [id number], [place] [address] Mar, [facility] [place] [facility] [address] [id number] [place] [address] Feb, [facility] [place] [facility] [address] [facility] [id number], [place] [address] Feb, [facility] [place] [facility] [address] [id number], [place] [address] Feb, [facility] [place] [facility] [address] [id number], [place] [address] Feb, [facility] [place] [facility] [address] [id number], [place] [address] Feb, [facility] [place] [facility] [address] [id number], [place] [address] Feb, [facility] [place] [facility] [address] [facility] [id number], [place] [address] Feb, [facility] [place] [facility] [address] [id number], [place] [address] 18 Jan, 2012 [facility] [address] [id number] [place] [address] 14 Jan, 2012 [facility] [address] [id number] [place] [address] 10 Jan, 2012 [facility] [address] [id number] [place] [address] 30 Dec, 2011 [facility] [address] [id number] [place] [address] Dec, [facility] [address] [id number] [place] [address] Dec, [facility] [address] [id number] [place] [address] Nov, [facility] [id number] [place] [address] Oct, [facility] [address] [id number] [place] [address] Oct, [facility] [address] [id number] [place] [address] Oct, [facility] [address] [id number] [place] [address] Oct, [facility] [id number] [place] [address] Oct, [facility] [address] [facility] [id number] [place] [address] Aug, [facility] [place] [facility] [address] [id number] [place] [address] Aug, [facility] [place] [facility] [address] [facility] [id number] [place] [address] Jul, [facility] [address] [id number] [place] [address] Jun, [facility] [address] [id number] [id number] 14 Jun, 2011 [facility] [address] [id number], [place] [address] May, [facility] [id number], [place] [address] May, [facility] [address] [id number], [place] [address] May, [facility] [id number], [place] [address] May, [facility] [id number], [place] [address] May, [facility] [id number], [place] [address] Apr, [facility] [id number], [place] [address] Apr, [facility] [id number], [place] [address] Apr, [facility] [id number], [place] [address] Apr, [facility] [address] [id number], [place] [address] Apr, [facility] [address] [id number], [place] [address] Apr, [facility] [address] [id number], [place] [address] Apr, [facility] [address] [id number], [place] [address] Apr, IMMUNIZATIONS No Known Immunizations SOCIAL HISTORY Never Assessed REASON FOR VISIT EMR-[facility] [place] PLAN OF CARE VITAL SIGNS MEDICATIONS Unknown [...]
--- OUTSIDE RECORDS SUMMARY | 2018-09-19 20:30 | XMS REPORT ---
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 Name Role Phone HARVEY TORRES Unavailable PROBLEMS Type Condition ICD9-CM Code HRN45-GP Code Onset Dates Condition Status SNOMED Code Problem Hyperlipidemia LDL goal <70 E78.5 Active 11705637 Problem Arthritis M19.90 Active 9101991 Problem Long-term use of high-risk medication Z79.899 Active 108275978 Problem Insomnia G47.00 Active 163415743 Problem Hypertension I10 Active 64521543 Problem Fibromyalgia M79.7 Active 25387029 Problem Anxiety associated with depression F41.8 Active 638194428 Problem Type 2 diabetes mellitus with other specified complication, without long- term current use of insulin E11.69 Active 95224738 Problem Hypercholesterolemia E78.0 Active 52904186 Problem Chronic maxillary sinusitis J32.0 Active 40715528 Problem Adjustment disorder with anxiety F43.22 Active 95662296 Problem Chronic fatigue R53.82 Active 84489156 Problem Overweight (BMI 25.0-29.9) E66.3 Active [id number] ALLERGIES No Information ENCOUNTERS Encounter Location Date Diagnosis [facility] [id number] [place] [address] Apr, [facility] [id number] [place] [address] Apr, Hypertension I10 [facility] [id number] [place] [address] Mar, Fibromyalgia M79.7 [facility] [id number] [place] [address] Mar, Hypertension I10 [facility] [address] [place] [address] Mar, Hypertension I10 [place] [address] [address] Feb, Hypertension I10 ; Hyperlipidemia LDL goal <70 E78.5 and Type 2 diabetes mellitus with other specified complication, without long-term current use of insulin E11.69 [place] [address] [place] [address] Feb, Hypertension I10 [facility] [id number] [place] [address] Feb, Fibromyalgia M79.7 [facility] [id number] [place] [address] Jan, Hypertension I10 ; Trochanteric bursitis, right hip M70.61 ; Trochanteric bursitis of left hip M70.62 ; Chronic fatigue R53.82 ; Type 2 diabetes mellitus without complication, without long-term current use of insulin E11.9 and Hypercholesterolemia E78.0 [facility] [id number] [place] [address] Dec, Fibromyalgia M79.7 [facility] [id number] [place] [address] Nov, Hyperlipidemia LDL goal <70 E78.5 [facility] [id number] [place] [address] Nov, Hyperlipidemia LDL goal <70 E78.5 [facility] [id number] [place] [address] Nov, Hypercholesterolemia E78.0 [facility] [id number] [place] [address] Oct, Hyperlipidemia LDL goal <70 E78.5 [facility] [address] [place] [address] Oct, Type 2 diabetes mellitus without complication, without long-term current use of insulin E11.9 ; Hyperlipidemia LDL goal <70 E78.5 ; Hypertension I10 ; Fibromyalgia M79.7 and Chronic fatigue R53.82 [place] [address] [address] Oct, Type 2 diabetes mellitus without complication, without long-term current use of insulin E11.9 ; Hyperlipidemia LDL goal <70 E78.5 ; Hypertension I10 ; Fibromyalgia M79.7 ; Chronic fatigue R53.82 and Overweight (BMI 25.0-29.9) E66.[address] [address] Aug, Hypertension I10 and Dyshidrotic eczema L30.[address] [address] 14 Jun, 2017 Hyperlipidemia LDL goal <[address] [address] Jun, Arthritis M19.[address] [address] May, Hypertension I10 ; Anxiety associated with depression F41.8 ; Hyperlipidemia LDL goal <70 E78.5 and Chronic maxillary sinusitis J32.[address] [address] May, Acute non-recurrent maxillary sinusitis J01.00 and Sore throat J02.[address] [address] May, Dysthymia F34.[address] [address] Apr, Hypertension I10 [address] [address] Apr, Cough R05 ; Sore throat J02.9 and Bronchitis J40 [address] [address] Mar, Anxiety associated with depression F41.8 ; Adjustment disorder with anxiety F43.22 and Depression F32.9 [place] [address] [address] Mar, [place] [address] [address] Mar, Type 2 diabetes mellitus without complication, without long-term current use of insulin E11.9 ; Hypertension I10 ; Hyperlipidemia LDL goal <70 E78.5 ; Arthritis M19.90 ; Long-term use of high-risk medication Z79.899 and Dysthymia F34.1 [place] [address] [address] Mar, [place] [address] [address] Mar, [place] [address] [address] Feb, [place] [address] [address] Feb, Acute right hip pain M25.551 and Hypertension I10 [place] [address] [address] Feb, Diabetes E11.9 [place] [address] [address] Jan, Hypertension I10 [place] [address] [address] Jan, Hypertension I10 [place] [address] [address] Dec, Dysuria R30.0 [place] [address] [address] Dec, [place] [address] [address] Dec, Fibromyalgia M79.7 [place] [address] [address] 14 Dec, 2016 Acute recurrent frontal sinusitis J01.11 and Hypertension I10 [facility] [id number] [place] [address] Dec, Hypertension I10 [facility] [id number] [place] [address] Dec, [facility] [id number] [place] [address] Dec, Hypertension I10 [place] [id number] [place] [address] Nov, [facility] [id number] [place] [address] Oct, Fibromyalgia M79.7 ; Hypertension I10 ; Depression F32.9 ; Hypercholesterolemia E78.0 ; Anxiety associated with depression F41.8 and Diabetes E11.9 [place] [address] [place] [address] September, Essential hypertension I10 ; Diabetes E11.9 ; Anxiety associated with depression F41.8 and Hypercholesterolemia E78.0 [place] [address] [address] Aug, [facility] [address] [address] Aug, Diabetes E11.9 [facility] [address] [address] Aug, [facility] [id number] [place] [address] 13 Jul, 2016 Acute non-recurrent maxillary sinusitis J01.00 [facility] [address] [address] 06 Jul, 2016 Anxiety associated with depression F41.8 [facility] [id number] [place] [address] Jun, Anxiety associated with depression F41.8 and Hypercholesterolemia E78.0 [place] [address] [address] May, Diabetes E11.9 ; Insomnia G47.00 ; Fibromyalgia M79.7 ; Hypercholesterolemia E78.0 ; Anxiety associated with depression F41.8 and Essential hypertension I10 [place] [address] [address] May, [place] [address] [address] May, [place] [address] [address] Mar, [place] [address] [address] Mar, Hypertension I10 [place] [address] [address] Feb, [facility] [id number] [place] [address] Feb, [place] [address] [address] Feb, Anxiety associated with depression F41.8 ; Chest tightness R07.89 and Elevated blood pressure I10 [address] [address] Feb, Encounter for immunization Z23 ; Bronchitis J40 ; Diabetes E11.9 ; Hypertension I10 ; Insomnia G47.00 ; Hypercholesterolemia E78.0 ; Depression F32.9 and Fibromyalgia M79.7 [place] [id number] [place] [address] Jan, Bronchitis J40 and Depression F32.9 [facility] [id number] [place] [address] Jan, Bronchitis J40 [place] [id number] [address] Dec, [facility] [id number] [place] [address] Dec, [facility] [id number] [place] [address] Nov, Acute non-recurrent frontal sinusitis J01.10 and Hypertension I10 [facility] [id number] [place] [address] Nov, [facility] [id number] [place] [address] Nov, Diabetes E11.9 ; Fibromyalgia M79.7 ; Hypertension I10 ; Insomnia G47.00 ; Depression F32.9 and Hypercholesterolemia E78.0 [facility] [address] [place] [address] Oct, Hypercholesterolemia E78.0 [facility] [id number] [place] [address] September, [facility] [id number] [place] [address] Aug, Diabetes E11.9 ; Fibromyalgia M79.7 ; Hypertension I10 ; Insomnia G47.00 ; Depression F32.9 ; Shoulder pain M25.519 ; Hypercholesterolemia E78.0 and Pain in right shoulder M25.511 [facility] [address] [place] [address] Jul, [facility] [id number] [place] [address] Jun, Hypercholesterolemia E78.0 [facility] [id number] [place] [address] Jun, [facility] [id number] [place] [address] May, [facility] [address] [address] May, Well woman exam Z01.419 [place] [address] [address] May, Hypertension I10 ; Diabetes E11.9 ; Fibromyalgia M79.7 ; Insomnia G47.00 ; Depression F32.9 and Hypercholesterolemia E78.0 [place] [address] [address] Apr, [place] [address] [address] Apr, Fibromyalgia M79.7 ; Hypertension I10 ; Bronchitis J40 ; Insomnia G47.00 ; Depression F32.9 ; Shoulder pain M25.519 and Hypercholesterolemia E78.0 [place] [address] [address] Mar, Hyperlipemia E78.5 [place] [address] [address] Mar, Diabetes E11.9 ; Hypertension I10 ; Insomnia G47.00 ; Depression F32.9 and Shoulder pain M25.519 [place] [address] [address] Mar, [place] [address] [address] Feb, [place] [address] [address] Feb, Diabetes E11.9 ; Encounter for immunization Z23 ; Fibromyalgia M79.7 ; Hypertension I10 ; Bronchitis J40 and Insomnia G47.[address] [address] Feb, Bronchitis J40 [place] [address] [address] Jan, Bronchitis [address] [place] [address] [place] [address] 14 Aug, 2014 [facility] [address] [id number] [place] [address] 13 Aug, 2014 [facility] [place] [facility] [address] [id number] [place] [address] Jul, [facility] [place] [facility] [address] [id number] [place] [address] Jul, [facility] [place] [facility] [address] [id number] [place] [address] Jul, [facility] [place] [facility] [address] [id number] [place] [address] Jul, [facility] [place] [facility] [address] [id number] [place] [address] Jun, [facility] [place] [facility] [address] [id number] [place] [address] Jun, [facility] [place] [facility] [address] [id number] [place] [address] May, [facility] [place] [facility] [address] [id number] [place] [address] May, [facility] [place] [facility] [address] [id number] [place] [address] Apr, [facility] [place] [facility] [address] [id number] [place] [address] Apr, [facility] [place] [facility] [address] [id number] [place] [address] Apr, [facility] [place] [facility] [address] [id number] [place] [address] Apr, [facility] [place] [facility] [address] [id number] [place] [address] Apr, [facility] [place] [facility] [address] [id number] [place] [address] Apr, [facility] [place] [facility] [address] [id number] [place] [address] Feb, [facility] [place] [facility] [address] [id number] [place] [address] Feb, [facility] [place] [facility] [address] [id number] [place] [address] Jan, [facility] [place] [facility] [address] [id number] [place] [address] Jan, [facility] [place] [facility] [address] [id number] [place] [address] Dec, [facility] [place] [facility] [address] [id number] [place] [address] Dec, [facility] [place] [facility] [address] [id number] [place] [address] September, [facility] [place] [facility] [address] [id number] [place] [address] September, [facility] [place] [facility] [address] [id number] [place] [address] September, [facility] [place] [facility] [address] [id number] [place] [address] September, [facility] [place] [facility] [address] [id number] [place] [address] September, [facility] [place] [facility] [address] [id number] [place] [address] September, [facility] [place] [facility] [address] [id number] [place] [address] Aug, [facility] [place] [facility] [address] [id number] [place] [address] Aug, [facility] [place] [facility] [address] [id number] [place] [address] Jul, [facility] [place] [facility] [address] [id number] [address] Jul, [facility] [address] [id number] [place] [address] May, [facility] [place] [facility] [address] [id number] [place] [address] May, [facility] [place] [facility] [address] [id number] [place] [address] May, [facility] [place] [facility] [address] [id number] [place] [address] May, [facility] [place] [facility] [address] [id number] [place] [address] May, [facility] [place] [facility] [address] [id number] [place] [address] May, [facility] [place] [facility] [address] [id number] [place] [address] Apr, [facility] [place] [facility] [address] [id number] [place] [address] Apr, [facility] [place] [facility] [address] [id number] [place] [address] Apr, [facility] [place] [facility] [address] [id number] [place] [address] Apr, [facility] [place] [facility] [address] [id number] [address] 16 Apr, 2013 [facility] [place] [facility] [address] [id number] [address] 16 Apr, 2013 [facility] [place] [facility] [address] [id number] [place] [address] Apr, [facility] [place] [facility] [address] [id number] [place] [address] Apr, [facility] [place] [facility] [address] [id number] [place] [address] Feb, [facility] [place] [facility] [address] [id number] [place] [address] Feb, [facility] [address] [id number] [place] [address] Feb, [facility] [address] [id number] [place] [address] Feb, [facility] [address] [id number] [place] [address] Feb, [facility] [address] [id number] [place] [address] Feb, [facility] [address] [id number] [place] [address] Feb, [facility] [address] [id number] [place] [address] Feb, [facility] [address] [id number] [place] [address] Nov, [facility] [address] [id number] [place] [address] Nov, [facility] [place] [facility] [address] [id number] [place] [address] Oct, [facility] [address] [id number] [place] [address] Oct, [facility] [place] [facility] [address] [id number] [place] [address] Oct, [facility] [place] [facility] [address] [id number] [place] [address] September, [facility] [place] [facility] [address] [id number] [place] [address] September, [facility] [place] [facility] [address] [id number] [place] [address] September, [facility] [place] [facility] [address] [id number] [place] [address] September, [facility] [address] [id number] [place] [address] September, [facility] [address] [id number] [place] [address] September, [facility] [address] [id number] [place] [address] September, [facility] [place] [facility] [address] [id number] [place] [address] September, [facility] [address] [id number] [place] [address] September, [facility] [address] [id number] [place] [address] September, [facility] [address] [id number] [place] [address] Aug, [facility] [address] [id number] [place] [address] Jul, [facility] [address] [id number] [place] [address] Jun, [facility] [address] [id number] [place] [address] Jun, [facility] [address] [id number] [place] [address] May, [facility] [place] [facility] [address] [id number] [place] [address] May, [facility] [place] [facility] [address] [id number] [place] [address] Mar, [facility] [place] [facility] [address] [id number] [place] [address] Mar, [facility] [place] [facility] [address] [id number] [place] [address] Mar, [facility] [place] [facility] [address] [id number] [place] [address] Mar, [facility] [place] [facility] [address] [id number] [place] [address] Feb, [facility] [place] [facility] [address] [id number] [place] [address] Feb, [facility] [place] [facility] [address] [id number] [place] [address] Feb, [facility] [place] [facility] [address] [id number] [place] [address] Feb, [facility] [place] [facility] [id number] [place] [address], [place] [address] Feb, [facility] [place] [facility] [address] [id number] [place] [address] Feb, [facility] [place] [facility] [address] [id number] [place] [address] Feb, [facility] [place] [facility] [address] [id number] [place] [address] 18 Jan, 2012 [facility] [place] [facility] [address] [id number] [place] [address] 14 Jan, 2012 [facility] [place] [facility] [address] [facility] [id number] [place] [address] 10 Jan, 2012 [facility] [place] [facility] [address] [id number] [place] [address] 30 Dec, 2011 [facility] [place] [facility] [address] [id number] [place] [address] Dec, [facility] [place] [facility] [address] [id number] [place] [address] Dec, [facility] [place] [facility] [address] [facility] [id number] [place] [address] Nov, [facility] [place] [facility] [address] [facility] [id number] [place] [address] Oct, [facility] [place] [facility] [address] [id number] [place] [address] Oct, [facility] [address] [id number] [place] [address] Oct, [facility] [place] [facility] [address] [id number] [place] [address] Oct, [facility] [place] [facility] [address] [id number] [place] [address] Oct, [facility] [place] [facility] [address] [id number] [place] [address] Aug, [facility] [place] [facility] [address] [id number] [place] [address] Aug, [facility] [place] [facility] [address] [id number] [place] [address] Jul, [facility] [address] [id number] [place] [address] Jun, [facility] [address] [id number] [id number] Jun, [facility] [address] [id number] [place] [address] May, [facility] [address] [id number] [place] [address] May, [facility] [place] [facility] [address] [id number] [place] [address] May, [facility] [place] [facility] [address] [id number] [place] [address] May, [facility] [place] [facility] [address] [id number] [place] [address] May, [facility] [place] [facility] [address] [id number] [place] [address] Apr, [facility] [place] [facility] [address] [id number] [place] [address] Apr, [facility] [address] [facility] [id number] [address] Apr, [facility] [address] [id number] [address] Apr, [facility] [address] [facility] [id number] [place] [address] Apr, [facility] [address] [id number] [address] Apr, [facility] [address] [facility] [id number] [place] [address] Apr, [facility] [address] [id number] [address] Apr, IMMUNIZATIONS No Known Immunizations SOCIAL HISTORY Never Assessed REASON FOR VISIT refill request PLAN OF CARE VITAL SIGNS MEDICATIONS Medication Instructions Dosage Frequency Start Date End Date Duration Status Norvasc 5 mg Orally Once a day 1 tablet 24h Jan, Active RESULTS No Results PROCEDURES No Known procedures INSTRUCTIONS MEDICATIONS ADMINISTERED No Known Medications MEDICAL (GENERAL) HISTORY Type Description Date Medical History Diabetes type II Medical History hypertension Medical History fibromyalgia Medical History hyperlipidemia Medical History ostoarthrtis Surgical History hysterectomy has right ovary left 1995 Surgical History shoulder surgery(right) 09/2014 Hospitalization History surgeries Hospitalization History childbirth x 2
--- OUTSIDE RECORDS SUMMARY | 2018-09-19 20:30 | XMS REPORT ---
Author Author HARVEY TORRES [facility] Address [address] [place] [address] Care Team Providers Care Executive Staff Assistant Name Role Phone JANELLE TORRESTA Unavailable PROBLEMS Type Condition ICD9-CM Code QZF21-IO Code Onset Dates Condition Status SNOMED Code Problem Hyperlipidemia LDL goal <70 E78.5 Active 92245026 Problem Arthritis M19.90 Active 8360660 Problem Long-term use of high-risk medication Z79.899 Active 217509852 Problem Insomnia G47.00 Active 525082523 Problem Hypertension I10 Active 29761687 Problem Fibromyalgia M79.7 Active 01483349 Problem Anxiety associated with depression F41.8 Active 787028804 Problem Type 2 diabetes mellitus with other specified complication, without long- term current use of insulin E11.69 Active 34849225 Problem Hypercholesterolemia E78.0 Active 55653678 Problem Chronic maxillary sinusitis J32.0 Active 68193506 Problem Adjustment disorder with anxiety F43.22 Active 88022323 Problem Chronic fatigue R53.82 Active 11064728 Problem Overweight (BMI 25.0-29.9) E66.3 Active 942440409 ALLERGIES No Information ENCOUNTERS Encounter Location Date Diagnosis [facility] [id number] [place] [address] Apr, Fibromyalgia M79.7 [facility] [id number] [place] [address] Apr, Well woman exam without gynecological exam Z00.00 ; Breast cancer screening Z12.31 and Screening for osteoporosis Z13.820 [facility] [id number] [place] [address] Apr, Hypertension I10 [facility] [id number] [place] [address] Mar, Fibromyalgia M79.7 [facility] [address] [address] Mar, Hypertension I10 [facility] [id number] [place] [address] Mar, Hypertension I10 [facility] [address] [place] [address] Feb, Hypertension I10 ; Hyperlipidemia LDL goal <70 E78.5 and Type 2 diabetes mellitus with other specified complication, without long-term current use of insulin E11.69 [facility] [id number] [place] [address] Feb, Hypertension I10 [facility] [id number] [place] [address] Feb, Fibromyalgia M79.7 [facility] [id number] [place] [address] Jan, Hypertension I10 ; Trochanteric bursitis, right hip M70.61 ; Trochanteric bursitis of left hip M70.62 ; Chronic fatigue R53.82 ; Type 2 diabetes mellitus without complication, without long-term current use of insulin E11.9 and Hypercholesterolemia E78.0 [facility] [address] [address] Dec, Fibromyalgia M79.7 [facility] [address] [place] [address] Nov, Hyperlipidemia LDL goal <70 E78.5 [facility] [address] [place] [address] Nov, Hyperlipidemia LDL goal <70 E78.5 [facility] [id number] [place] [address] Nov, Hypercholesterolemia E78.0 [facility] [id number] [place] [address] Oct, Hyperlipidemia LDL goal <70 E78.5 [facility] [address] [address] 18 Oct, 2017 Type 2 diabetes mellitus without complication, without long-term current use of insulin E11.9 ; Hyperlipidemia LDL goal <70 E78.5 ; Hypertension I10 ; Fibromyalgia M79.7 and Chronic fatigue R53.82 [facility] [address] [address] 15 Oct, 2017 Type 2 diabetes mellitus without complication, without long-term current use of insulin E11.9 ; Hyperlipidemia LDL goal <70 E78.5 ; Hypertension I10 ; Fibromyalgia M79.7 ; Chronic fatigue R53.82 and Overweight (BMI 25.0-29.9) E66.[address] [address] Aug, Hypertension I10 and Dyshidrotic eczema L30.[address] [address] 14 Jun, 2017 Hyperlipidemia LDL goal <[address] [address] Jun, Arthritis M19.[address] [address] May, Hypertension I10 ; Anxiety associated with depression F41.8 ; Hyperlipidemia LDL goal <70 E78.5 and Chronic maxillary sinusitis J32.[address] [address] May, Acute non-recurrent maxillary sinusitis J01.00 and Sore throat J02.[address] [address] May, Dysthymia F34.[address] [address] Apr, Hypertension I10 [address] [address] Apr, Cough R05 ; Sore throat J02.9 and Bronchitis J40 [facility] [address] [address] Mar, Anxiety associated with depression F41.8 ; Adjustment disorder with anxiety F43.22 and Depression F32.9 [facility] [address] [address] Mar, [facility] [address] [address] Mar, Type 2 diabetes mellitus without complication, without long-term current use of insulin E11.9 ; Hypertension I10 ; Hyperlipidemia LDL goal <70 E78.5 ; Arthritis M19.90 ; Long-term use of high-risk medication Z79.899 and Dysthymia F34.[address] [address] Mar, [facility] [address] [address] Mar, [facility] [address] [address] Feb, [facility] [address] [address] Feb, Acute right hip pain M25.551 and Hypertension I10 [facility] [address] [address] Feb, Diabetes E11.9 [facility] [address] [address] Jan, Hypertension I10 [facility] [address] [address] Jan, Hypertension I10 [facility] [id number] [place] [address] Dec, Dysuria R30.0 [facility] [id number] [address] Dec, [facility] [address] [place] [address] Dec, Fibromyalgia M79.7 [facility] [address] [address] Dec, Acute recurrent frontal sinusitis J01.11 and Hypertension I10 [facility] [id number] [place] [address] Dec, Hypertension I10 [facility] [id number] [place] [address] Dec, [facility] [id number] [place] [address] Dec, Hypertension I10 [facility] [id number] [place] [address] Nov, [facility] [id number] [place] [address] Oct, Fibromyalgia M79.7 ; Hypertension I10 ; Depression F32.9 ; Hypercholesterolemia E78.0 ; Anxiety associated with depression F41.8 and Diabetes E11.9 [facility] [address] [address] September, Essential hypertension I10 ; Diabetes E11.9 ; Anxiety associated with depression F41.8 and Hypercholesterolemia E78.0 [facility] [address] [address] Aug, [facility] [address] [address] Aug, Diabetes E11.9 [facility] [address] [address] Aug, [facility] [address] [address] Jul, Acute non-recurrent maxillary sinusitis J01.00 [facility] [id number] [place] [address] Jul, Anxiety associated with depression F41.8 [facility] [id number] [place] [address] Jun, Anxiety associated with depression F41.8 and Hypercholesterolemia E78.0 [facility] [address] [address] May, Diabetes E11.9 ; Insomnia G47.00 ; Fibromyalgia M79.7 ; Hypercholesterolemia E78.0 ; Anxiety associated with depression F41.8 and Essential hypertension I10 [facility] [id number] [place] [address] May, [facility] [address] [address] May, [facility] [address] [address] Mar, [facility] [id number] [place] [address] Mar, Hypertension I10 [facility] [id number] [place] [address] Feb, [facility] [id number] [place] [address] Feb, [facility] [address] [address] Feb, Anxiety associated with depression F41.8 ; Chest tightness R07.89 and Elevated blood pressure I10 [facility] [address] [address] Feb, Encounter for immunization Z23 ; Bronchitis J40 ; Diabetes E11.9 ; Hypertension I10 ; Insomnia G47.00 ; Hypercholesterolemia E78.0 ; Depression F32.9 and Fibromyalgia M79.7 [facility] [id number] [place] [address] Jan, Bronchitis J40 and Depression F32.9 [facility] [id number] [place] [address] Jan, Bronchitis J40 [facility] [id number] [place] [address] Dec, [facility] [address] [address] Dec, [facility] [id number] [place] [address] Nov, Acute non-recurrent frontal sinusitis J01.10 and Hypertension I10 [facility] [id number] [place] [address] Nov, [facility] [address] [address] Nov, Diabetes E11.9 ; Fibromyalgia M79.7 ; Hypertension I10 ; Insomnia G47.00 ; Depression F32.9 and Hypercholesterolemia E78.0 [facility] [id number] [place] [address] Oct, Hypercholesterolemia E78.0 [facility] [id number] [place] [address] September, [facility] [id number] [place] [address] Aug, Diabetes E11.9 ; Fibromyalgia M79.7 ; Hypertension I10 ; Insomnia G47.00 ; Depression F32.9 ; Shoulder pain M25.519 ; Hypercholesterolemia E78.0 and Pain in right shoulder M25.511 [facility] [id number] [place] [address] Jul, [facility] [id number] [place] [address] Jun, Hypercholesterolemia E78.0 [facility] [address] [address] Jun, [facility] [facility] [address] [address] May, [facility] [address] [address] May, Well woman exam Z01.419 [facility] [address] [address] May, Hypertension I10 ; Diabetes E11.9 ; Fibromyalgia M79.7 ; Insomnia G47.00 ; Depression F32.9 and Hypercholesterolemia E78.0 [facility] [address] [address] Apr, [facility] [address] [address] Apr, Fibromyalgia M79.7 ; Hypertension I10 ; Bronchitis J40 ; Insomnia G47.00 ; Depression F32.9 ; Shoulder pain M25.519 and Hypercholesterolemia E78.0 [facility] [address] [address] Mar, Hyperlipemia E78.5 [facility] [address] [address] Mar, Diabetes E11.9 ; Hypertension I10 ; Insomnia G47.00 ; Depression F32.9 and Shoulder pain M25.519 [facility] [facility] [address] [address] Mar, [facility] [address] [address] Feb, [facility] [address] [address] Feb, Diabetes E11.9 ; Encounter for immunization Z23 ; Fibromyalgia M79.7 ; Hypertension I10 ; Bronchitis J40 and Insomnia G47.00 [place] [facility] [address] [address] 09 Feb, 2015 Bronchitis J40 [facility] [address] [id number] [place] [address] 28 Jan, 2015 Bronchitis 490 [facility] [address] [id number] [place] [address] 14 Aug, 2014 [facility] [address] [facility] [id number] [place] [address] Aug, [facility] [place] [facility] [address] [id number] [place] [address] Jul, [facility] [address] [id number] [place] [address], [place] [address] Jul, [facility] [place] [facility] [address] [facility] [id number] [place] [address] Jul, [facility] [address] [facility] [id number] [place] [address] Jul, [facility] [place] [facility] [address] [facility] [id number] [place] [address] Jun, [facility] [address] [facility] [id number] [place] [address] Jun, [facility] [address] [facility] [id number] [address] May, [facility] [address] [facility] [id number] [place] [address] May, [facility] [place] [facility] [address] [facility] [id number] [address] Apr, [facility] [place] [facility] [address] [facility] [id number] [place] [address] Apr, [facility] [place] [facility] [address] [facility] [id number] [address] Apr, [facility] [place] [facility] [address] [facility] [id number] [address] Apr, [facility] [place] [facility] [address] [id number] [place] [address] Apr, [facility] [place] [facility] [address] [id number] [place] [address] Apr, [facility] [place] [facility] [address] [id number] [place] [address] Feb, [facility] [place] [facility] [address] [id number] [place] [address] Feb, [facility] [place] [facility] [address] [id number] [place] [address] Jan, [facility] [place] [facility] [address] [id number] [place] [address] Jan, [facility] [place] [facility] [address] [id number] [place] [address] Dec, [facility] [place] [facility] [address] [id number] [place] [address] Dec, [facility] [place] [facility] [address] [id number] [place] [address] September, [facility] [place] [facility] [address] [id number] [place] [address] September, [facility] [place] [facility] [address] [id number] [place] [address] September, [facility] [place] [facility] [address] [id number] [place] [address] September, [facility] [place] [facility] [address] [id number] [place] [address] September, [facility] [place] [facility] [address] [id number] [place] [address] September, [facility] [place] [facility] [address] [id number] [place] [address] Aug, [facility] [place] [facility] [address] [id number] [address] Aug, [facility] [address] [id number] [place] [address] Jul, [facility] [place] [facility] [address] [id number] [place] [address] Jul, [facility] [place] [facility] [address] [id number] [place] [address] May, [facility] [place] [facility] [address] [id number] [place] [address] May, [facility] [place] [facility] [address] [id number] [place] [address] May, [facility] [place] [facility] [address] [id number] [place] [address] May, [facility] [place] [facility] [address] [id number] [place] [address] May, [facility] [place] [facility] [address] [id number] [place] [address] May, [facility] [address] [id number] [place] [address] Apr, [facility] [place] [facility] [address] [id number] [place] [address] Apr, [facility] [place] [facility] [address] [id number] [address] Apr, [facility] [place] [facility] [address] [id number] [address] Apr, [facility] [place] [facility] [address] [id number] [place] [address] Apr, [facility] [place] [facility] [address] [id number] [place] [address] Apr, [facility] [place] [facility] [address] [id number] [place] [address] Apr, [facility] [place] [facility] [address] [id number] [place] [address] Apr, [facility] [address] [id number] [place] [address] Feb, [facility] [place] [facility] [address] [id number] [place] [address] Feb, [facility] [address] [id number] [place] [address] Feb, [facility] [place] [facility] [address] [id number] [place] [address] Feb, [facility] [address] [id number] [place] [address] Feb, [facility] [place] [facility] [address] [id number] [place] [address] Feb, [facility] [place] [facility] [address] [id number] [place] [address] Feb, [facility] [place] [facility] [address] [id number] [place] [address] Feb, [facility] [place] [facility] [address] [id number] [place] [address] Nov, [facility] [place] [facility] [address] [id number] [place] [address] Nov, [facility] [place] [facility] [address] [id number] [place] [address] Oct, [facility] [place] [facility] [address] [id number] [place] [address] Oct, [facility] [place] [facility] [address] [id number] [place] [address] Oct, [facility] [place] [facility] [address] [id number] [place] [address] September, [facility] [place] [facility] [address] [id number] [place] [address] September, [facility] [address] [id number] [place] [address] September, [facility] [address] [id number] [place] [address] September, [facility] [address] [id number] [place] [address] September, [facility] [address] [id number] [place] [address] September, [facility] [address] [id number] [place] [address] September, [facility] [address] [id number] [place] [address] September, [facility] [address] [id number] [place] [address] September, [facility] [address] [id number] [place] [address] September, [facility] [address] [id number] [place] [address] Aug, [facility] [address] [id number] [place] [address] Jul, [facility] [address] [id number] [place] [address] Jun, [facility] [address] [id number] [place] [address] Jun, [facility] [place] [facility] [address] [id number] [place] [address] May, [facility] [place] [facility] [address] [id number] [place] [address] May, [facility] [place] [facility] [address] [id number] [place] [address] Mar, [facility] [address] [id number] [place] [address] Mar, [facility] [place] [facility] [address] [id number] [place] [address] Mar, [facility] [place] [facility] [address] [id number] [place] [address] Mar, [facility] [place] [facility] [address] [id number] [place] [address] Feb, [facility] [place] [facility] [address] [id number] [place] [address] Feb, [facility] [place] [facility] [address] [id number] [place] [address], [place] [address] Feb, [facility] [place] [facility] [address] [id number] [place] [address] Feb, [facility] [place] [facility] [address] [id number] [place] [address] Feb, [facility] [place] [facility] [address] [id number] [place] [address] Feb, [facility] [place] [facility] [address] [id number] [place] [address] Feb, [facility] [place] [facility] [address] [id number] [place] [address] 18 Jan, 2012 [facility] [place] [facility] [address] [id number] [place] [address] 14 Jan, 2012 [facility] [place] [facility] [address] [id number] [place] [address] 10 Jan, 2012 [facility] [place] [facility] [address] [id number] [place] [address] 30 Dec, 2011 [facility] [place] [facility] [address] [id number] [place] [address] Dec, [facility] [place] [facility] [address] [facility] [id number] [place] [address] Dec, [facility] [place] [facility] [address] [id number] [place] [address] Nov, [facility] [address] [id number] [place] [address] Oct, [facility] [place] [facility] [address] [id number] [place] [address] Oct, [facility] [place] [facility] [address] [id number] [place] [address] Oct, [facility] [place] [facility] [address] [id number] [place] [address] Oct, [facility] [place] [facility] [address] [id number] [place] [address] Oct, [facility] [address] [id number] [place] [address] Aug, [facility] [address] [id number] [place] [address] Aug, [facility] [address] [id number] [place] [address] Jul, [facility] [address] [id number] [address] Jun, [facility] [address] [id number] [id number] Jun, [facility] [address] [id number] [place] [address] May, [facility] [address] [id number] [place] [address] May, [facility] [place] [facility] [address] [id number] [place] [address] May, [facility] [place] [facility] [address] [id number] [place] [address] May, [facility] [place] [facility] [address] [id number] [place] [address] May, [facility] [address] [id number] [address] Apr, [facility] [id number] [address] Apr, [facility] [address] [id number] [address] Apr, [facility] [id number] [address] Apr, [facility] [id number] [address] Apr, [facility] [id number] [address] Apr, [facility] [id number] [address] Apr, [facility] [address] [id number] [address] Apr, IMMUNIZATIONS No Known Immunizations SOCIAL HISTORY Never Assessed REASON FOR VISIT request refill PLAN OF CARE VITAL SIGNS MEDICATIONS Medication Instructions Dosage Frequency Start Date End Date Duration Status Ibuprofen 800 MG Orally 3 times a day 1 tablet with food or milk Three times a day Orally 30 day(s) 8h 30 days Active RESULTS No Results PROCEDURES No Known [...]
--- OUTSIDE RECORDS SUMMARY | 2018-09-19 20:31 | XMS REPORT ---
Author Author HARVEY TORRES [facility] Address [address] [place] [address] Care Team Providers Care Histologist Technologist Name Role Phone JANELLE TORRESTA Unavailable PROBLEMS Type Condition ICD9-CM Code OLE66-JR Code Onset Dates Condition Status SNOMED Code Problem Hyperlipidemia LDL goal <70 E78.5 Active 99781533 Problem Arthritis M19.90 Active 0201018 Problem Long-term use of high-risk medication Z79.899 Active 734444371 Problem Insomnia G47.00 Active 018750716 Problem Hypertension I10 Active 40618859 Problem Fibromyalgia M79.7 Active 37297924 Problem Anxiety associated with depression F41.8 Active 374766450 Problem Type 2 diabetes mellitus with other specified complication, without long- term current use of insulin E11.69 Active 58037997 Problem Hypercholesterolemia E78.0 Active 22508816 Problem Chronic maxillary sinusitis J32.0 Active 64378928 Problem Adjustment disorder with anxiety F43.22 Active 95241096 Problem Chronic fatigue R53.82 Active 69291951 Problem Overweight (BMI 25.0-29.9) E66.3 Active 366088638 ALLERGIES No Information ENCOUNTERS Encounter Location Date Diagnosis [facility] [id number], [place] [address] Mar, Hypertension I10 [facility] [id number] [address] Mar, Hypertension I10 [facility] [id number] [place] [address] Feb, Hypertension I10 ; Hyperlipidemia LDL goal <70 E78.5 and Type 2 diabetes mellitus with other specified complication, without long-term current use of insulin E11.69 [facility] [id number] [place] [address] Feb, Hypertension I10 [address] [address] Feb, Fibromyalgia M79.7 [facility] [facility] [id number] [place] [address] Jan, Hypertension I10 ; Trochanteric bursitis, right hip M70.61 ; Trochanteric bursitis of left hip M70.62 ; Chronic fatigue R53.82 ; Type 2 diabetes mellitus without complication, without long-term current use of insulin E11.9 and Hypercholesterolemia E78.0 [place] [id number] [place] [address] Dec, Fibromyalgia M79.7 [place] [id number] [place] [address] Nov, Hyperlipidemia LDL goal <70 E78.5 [place] [id number] [place] [address] Nov, Hyperlipidemia LDL goal <70 E78.5 [place] [id number] [place] [address] Nov, Hypercholesterolemia E78.0 [place] [id number] [place] [address] Oct, Hyperlipidemia LDL goal <70 E78.5 [place] [id number] [place] [address] Oct, Type 2 diabetes mellitus without complication, without long-term current use of insulin E11.9 ; Hyperlipidemia LDL goal <70 E78.5 ; Hypertension I10 ; Fibromyalgia M79.7 and Chronic fatigue R53.82 [place] [id number] [place] [address] 15 Oct, 2017 Type 2 diabetes mellitus without complication, without long-term current use of insulin E11.9 ; Hyperlipidemia LDL goal <70 E78.5 ; Hypertension I10 ; Fibromyalgia M79.7 ; Chronic fatigue R53.82 and Overweight (BMI 25.0-29.9) E66.3 [place] [id number] [place] [address] Aug, Hypertension I10 and Dyshidrotic eczema L30.1 [place] [address] [address] 14 Jun, 2017 Hyperlipidemia LDL goal <[address] [address] Jun, Arthritis M19.[address] [address] May, Hypertension I10 ; Anxiety associated with depression F41.8 ; Hyperlipidemia LDL goal <70 E78.5 and Chronic maxillary sinusitis J32.[address] [address] May, Acute non-recurrent maxillary sinusitis J01.00 and Sore throat J02.[address] [address] May, Dysthymia F34.[address] [address] Apr, Hypertension I10 [address] [address] Apr, Cough R05 ; Sore throat J02.9 and Bronchitis J40 [id number] [place] [address] Mar, Anxiety associated with depression F41.8 ; Adjustment disorder with anxiety F43.22 and Depression F32.[address] [address] Mar, [address] [address] Mar, Type 2 diabetes mellitus without complication, without long-term current use of insulin E11.9 ; Hypertension I10 ; Hyperlipidemia LDL goal <70 E78.5 ; Arthritis M19.90 ; Long-term use of high-risk medication Z79.899 and Dysthymia F34.1 [facility] [address] [address] Mar, [facility] [address] [address] Mar, [facility] [address] [address] Feb, [facility] [address] [address] Feb, Acute right hip pain M25.551 and Hypertension I10 [address] [place] [id number] [place] [address] Feb, Diabetes E11.9 [place] [address] [address] Jan, Hypertension I10 [facility] [address] [address] Jan, Hypertension I10 [address] [address] [address] Dec, Dysuria R30.0 [facility] [id number] [place] [address] Dec, [facility] [address] [address] Dec, Fibromyalgia M79.7 [facility] [id number] [place] [address] Dec, Acute recurrent frontal sinusitis J01.11 and Hypertension I10 [facility] [id number] [place] [address] Dec, Hypertension I10 [facility] [address] [address] Dec, [facility] [address] [address] Dec, Hypertension I10 [facility] [id number] [place] [address] Nov, [facility] [id number] [place] [address] Oct, Fibromyalgia M79.7 ; Hypertension I10 ; Depression F32.9 ; Hypercholesterolemia E78.0 ; Anxiety associated with depression F41.8 and Diabetes E11.9 [facility] [id number] [place] [address] September, Essential hypertension I10 ; Diabetes E11.9 ; Anxiety associated with depression F41.8 and Hypercholesterolemia E78.0 [address] [id number] [place] [address] Aug, [facility] [id number] [place] [address] Aug, Diabetes E11.9 [facility] [id number] [place] [address] Aug, [facility] [id number] [place] [address] Jul, Acute non-recurrent maxillary sinusitis J01.00 [place] [id number] [place] [address] Jul, Anxiety associated with depression F41.8 [facility] [id number] [place] [address] Jun, Anxiety associated with depression F41.8 and Hypercholesterolemia E78.0 [facility] [id number] [place] [address] May, Diabetes E11.9 ; Insomnia G47.00 ; Fibromyalgia M79.7 ; Hypercholesterolemia E78.0 ; Anxiety associated with depression F41.8 and Essential hypertension I10 [facility] [id number] [place] [address] May, [facility] [address] [address] May, [facility] [id number] [place] [address] Mar, [facility] [address] [address] Mar, Hypertension I10 [facility] [address] [address] Feb, [facility] [address] [address] Feb, [facility] [id number] [place] [address] Feb, Anxiety associated with depression F41.8 ; Chest tightness R07.89 and Elevated blood pressure I10 [facility] [id number] [place] [address] Feb, Encounter for immunization Z23 ; Bronchitis J40 ; Diabetes E11.9 ; Hypertension I10 ; Insomnia G47.00 ; Hypercholesterolemia E78.0 ; Depression F32.9 and Fibromyalgia M79.7 [facility] [id number] [place] [address] Jan, Bronchitis J40 and Depression F32.[address] [facility] [id number] [place] [address] Jan, Bronchitis J40 [facility] [id number] [place] [address] Dec, [facility] [address] [address] Dec, [facility] [id number] [place] [address] Nov, Acute non-recurrent frontal sinusitis J01.10 and Hypertension I10 [address] [id number] [place] [address] Nov, [facility] [address] [address] Nov, Diabetes E11.9 ; Fibromyalgia M79.7 ; Hypertension I10 ; Insomnia G47.00 ; Depression F32.9 and Hypercholesterolemia E78.0 [address] [id number] [place] [address] Oct, Hypercholesterolemia E78.0 [address] [address] [address] September, [address] [address] [address] Aug, Diabetes E11.9 ; Fibromyalgia M79.7 ; Hypertension I10 ; Insomnia G47.00 ; Depression F32.9 ; Shoulder pain M25.519 ; Hypercholesterolemia E78.0 and Pain in right shoulder M25.511 [address] [id number] [place] [address] Jul, [place] [address] [address] Jun, Hypercholesterolemia E78.0 [address] [id number] [place] [address] Jun, [place] [id number] [place] [address] May, [address] [id number] [place] [address] May, Well woman exam Z01.419 [address] [address] [address] May, Hypertension I10 ; Diabetes E11.9 ; Fibromyalgia M79.7 ; Insomnia G47.00 ; Depression F32.9 and Hypercholesterolemia E78.0 [address] [address] [address] Apr, [facility] [address] [address] Apr, Fibromyalgia M79.7 ; Hypertension I10 ; Bronchitis J40 ; Insomnia G47.00 ; Depression F32.9 ; Shoulder pain M25.519 and Hypercholesterolemia E78.0 [address] [address] Mar, Hyperlipemia E78.5 [address] [address] [address] Mar, Diabetes E11.9 ; Hypertension I10 ; Insomnia G47.00 ; Depression F32.9 and Shoulder pain M25.519 [address] [address] Mar, [facility] [address] [address] Feb, [facility] [address] [address] Feb, Diabetes E11.9 ; Encounter for immunization Z23 ; Fibromyalgia M79.7 ; Hypertension I10 ; Bronchitis J40 and Insomnia G47.00 [address] [address] Feb, Bronchitis J40 [address] [address] [address] Jan, Bronchitis 490 [facility] [address] [address] Aug, [facility] [address] [address] Aug, [facility] [address] [address] Jul, [facility] [address] [address] Jul, [facility] [place] [facility] [address] [id number] [place] [address] Jul, [facility] [place] [facility] [address] [id number] [place] [address] Jul, [facility] [place] [facility] [address] [facility] [id number] [place] [address] Jun, [facility] [place] [facility] [address] [id number] [place] [address] Jun, [facility] [place] [facility] [address] [id number] [place] [address] May, [facility] [place] [facility] [address] [id number] [place] [address] May, [facility] [place] [facility] [address] [id number] [place] [address] Apr, [facility] [place] [facility] [address] [id number] [place] [address] Apr, [facility] [place] [facility] [address] [id number] [place] [address] Apr, [facility] [place] [facility] [address] [id number] [place] [address] Apr, [facility] [place] [facility] [address] [id number] [place] [address] Apr, [facility] [place] [facility] [address] [id number], [place] [address] Apr, [facility] [place] [facility] [address] [id number] [place] [address] Feb, [facility] [place] [facility] [address] [id number] [place] [address] Feb, [facility] [place] [facility] [address] [facility] [id number] [place] [address] Jan, [facility] [place] [facility] [address] [id number] [place] [address] Jan, [facility] [address] [id number] [place] [address] Dec, [facility] [place] [facility] [address] [id number] [place] [address] Dec, [facility] [address] [id number] [place] [address] September, [facility] [address] [id number] [place] [address] September, [facility] [address] [id number] [place] [address] September, [facility] [address] [id number] [place] [address] September, [facility] [address] [id number] [place] [address] September, [facility] [address] [id number] [place] [address] September, [facility] [address] [id number] [place] [address] Aug, [facility] [address] [id number] [place] [address] Aug, [facility] [place] [facility] [address] [id number] [place] [address] Jul, [facility] [place] [facility] [address] [id number] [place] [address] Jul, [facility] [place] [facility] [address] [id number] [place] [address] May, [facility] [place] [facility] [address] [id number] [place] [address] May, [facility] [place] [facility] [address] [id number] [place] [address] May, [facility] [address] [id number] [place] [address] May, [facility] [place] [facility] [address] [id number] [place] [address] May, [facility] [place] [facility] [address] [id number] [place] [address] May, [facility] [place] [facility] [address] [id number] [place] [address] Apr, [facility] [place] [facility] [address] [id number] [place] [address] Apr, [facility] [place] [facility] [address] [id number] [place] [address] Apr, [facility] [place] [facility] [address] [id number] [place] [address] Apr, [facility] [place] [facility] [address] [id number] [place] [address] Apr, [facility] [place] [facility] [address] [id number] [place] [address] Apr, [facility] [place] [facility] [address] [id number], [place] [address] Apr, [facility] [place] [facility] [address] [id number], [place] [address] Apr, [facility] [place] [facility] [address] [id number], [place] [address] Feb, [facility] [place] [facility] [address] [id number] [place] [address] 31 Feb, 2013 [facility] [place] [facility] [address] [id number], [place] [address] 15 Feb, 2013 [facility] [place] [facility] [address] [id number], [place] [address] 15 Feb, 2013 [facility] [place] [facility] [address] [id number], [place] [address] Feb, [facility] [address] [id number] [place] [address] Feb, [facility] [place] [facility] [address] [id number] [place] [address] Feb, [facility] [place] [facility] [address] [id number] [place] [address] Feb, [facility] [place] [facility] [address] [id number] [place] [address] Nov, [facility] [address] [id number] [place] [address] Nov, [facility] [place] [facility] [address] [id number] [place] [address] Oct, [facility] [address] [id number] [place] [address] Oct, [facility] [place] [facility] [address] [id number] [place] [address] Oct, [facility] [address] [id number] [place] [address] September, [facility] [place] [facility] [address] [id number] [place] [address] September, [facility] [place] [facility] [address] [id number] [place] [address] September, [facility] [place] [facility] [address] [id number] [place] [address] September, [facility] [place] [facility] [address] [id number] [place] [address] September, [facility] [place] [facility] [address] [id number] [place] [address] September, [facility] [place] [facility] [address] [id number] [place] [address] September, [facility] [place] [facility] [address] [id number] [place] [address] September, [facility] [place] [facility] [address] [id number] [place] [address] September, [facility] [place] [facility] [address] [id number] [place] [address] September, [facility] [place] [facility] [address] [id number] [place] [address] Aug, [facility] [place] [facility] [address] [id number] [place] [address] Jul, [facility] [place] [facility] [address] [id number] [place] [address] Jun, [facility] [place] [facility] [address] [id number] [place] [address] Jun, [facility] [place] [facility] [address] [id number] [place] [address] May, [facility] [place] [facility] [address] [id number] [place] [address] May, [facility] [place] [facility] [address] [id number] [place] [address] Mar, [facility] [place] [facility] [address] [id number] [place] [address] Mar, [facility] [place] [facility] [address] [id number] [place] [address] Mar, [facility] [place] [facility] [address] [id number] [place] [address] Mar, [facility] [place] [facility] [address] [id number] [place] [address] Feb, [facility] [place] [facility] [address] [id number] [place] [address] Feb, [facility] [place] [facility] [address] [id number] [place] [address] Feb, [facility] [place] [facility] [address] [id number] [place] [address] 29 Feb, 2012 [facility] [place] [facility] [address] [id number] [place] [address] Feb, [facility] [place] [facility] [address] [facility] [id number] [place] [address] Feb, [facility] [place] [facility] [address] [id number] [place] [address] 08 Feb, 2012 [facility] [place] [facility] [address] [id number] [place] [address] 18 Jan, 2012 [facility] [place] [facility] [address] [id number] [place] [address] 14 Jan, 2012 [facility] [place] [facility] [address] [id number] [place] [address] 10 Jan, 2012 [facility] [place] [facility] [address] [id number] [place] [address] 30 Dec, 2011 [facility] [place] [facility] [address] [id number] [place] [address] Dec, [facility] [place] [facility] [address] [facility] [id number] [place] [address] Dec, [facility] [place] [facility] [address] [id number], [place] [address] Nov, [facility] [place] [facility] [address] [id number], [place] [address] Oct, [facility] [place] [facility] [address] [id number] [place] [address] Oct, [facility] [place] [facility] [address] [facility] [id number][place] [address] Oct, [facility] [place] [facility] [address] [facility] [id number] [place] [address] Oct, [facility] [place] [facility] [address] [id number] [place] [address] Oct, [facility] [address] [id number] [place] [address] Aug, [facility] [address] [facility] [id number] [place] [address] Aug, [facility] [address] [facility] [id number] [place] [address] Jul, [facility] [address] [facility] [id number] [place] [address] Jun, [facility] [address] [facility] [id number] [id number] Jun, [facility] [address] [id number] [place] [address] May, [facility] [address] [id number] [place] [address] May, [facility] [address] [id number] [place] [address] May, [facility] [address] [id number] [place] [address] May, [facility] [address] [id number] [place] [address] May, [facility] [address] [id number] [place] [address] Apr, [facility] [place] [facility] [address] [id number] [place] [address] Apr, [facility] [place] [facility] [address] [id number] [place] [address] Apr, [facility] [place] [facility] [address] [facility] [id number] [place] [address] Apr, [facility] [place] [facility] [address] [facility] [id number] [place] [address] Apr, [facility] [place] [facility] [address] [facility] [id number] [place] [address] Apr, [facility] [address] [facility] [id number], [place] [address] Apr, [facility] [address] [facility] [id number] [place] [address] Apr, IMMUNIZATIONS No Known Immunizations SOCIAL HISTORY Never Assessed REASON FOR VISIT refill request PLAN OF CARE VITAL SIGNS MEDICATIONS Medication Instructions Dosage Frequency Start Date End Date Duration Status Losartan Potassium 100 mg Orally Once a day TAKE ONE TABLET BY MOUTH ONCE DAILY 24h Active RESULTS No Results PROCEDURES No Known [...]
--- OUTSIDE RECORDS SUMMARY | 2018-09-19 20:31 | XMS REPORT ---
Author Author KING HARVEY [facility] Address [address] [place] [address] Care Team Providers Care Global Program Director Name Role Phone HARVEY TORRES Unavailable PROBLEMS Type Condition ICD9-CM Code QIK60-NF Code Onset Dates Condition Status SNOMED Code Problem Hyperlipidemia LDL goal <70 E78.5 Active 42817004 Problem Arthritis M19.90 Active 0498660 Problem Long-term use of high-risk medication Z79.899 Active 786990486 Problem Insomnia G47.00 Active 272257275 Problem Hypertension I10 Active 32623051 Problem Fibromyalgia M79.7 Active 03448103 Problem Anxiety associated with depression F41.8 Active 572822574 Problem Type 2 diabetes mellitus with other specified complication, without long- term current use of insulin E11.69 Active 45023620 Problem Hypercholesterolemia E78.0 Active 38821096 Problem Chronic maxillary sinusitis J32.0 Active 38866499 Problem Adjustment disorder with anxiety F43.22 Active 07591023 Problem Chronic fatigue R53.82 Active 76434727 Problem Overweight (BMI 25.0-29.9) E66.3 Active 455785012 ALLERGIES No Information ENCOUNTERS Encounter Location Date Diagnosis [facility] [id number] [place] [address] Mar, Fibromyalgia M79.7 [facility] [id number] [place] [address] Mar, Hypertension I10 [facility] [id number] [place] [address] Mar, Hypertension I10 [facility] [id number] [place] [address] Feb, Hypertension I10 ; Hyperlipidemia LDL goal <70 E78.5 and Type 2 diabetes mellitus with other specified complication, without long-term current use of insulin E11.69 [facility] [address] [address] Feb, Hypertension I10 [place] [id number] [place] [address] Feb, Fibromyalgia M79.7 [facility] [id number] [place] [address] Jan, Hypertension I10 ; Trochanteric bursitis, right hip M70.61 ; Trochanteric bursitis of left hip M70.62 ; Chronic fatigue R53.82 ; Type 2 diabetes mellitus without complication, without long-term current use of insulin E11.9 and Hypercholesterolemia E78.0 [place] [id number] [place] [address] Dec, Fibromyalgia M79.7 [facility] [id number] [place] [address] Nov, Hyperlipidemia LDL goal <70 E78.5 [place] [id number] [place] [address] Nov, Hyperlipidemia LDL goal <70 E78.5 [facility] [id number] [place] [address] Nov, Hypercholesterolemia E78.0 [place] [address], [place] [address] Oct, Hyperlipidemia LDL goal <70 E78.5 [place] [id number] [place] [address] Oct, Type 2 diabetes mellitus without complication, without long-term current use of insulin E11.9 ; Hyperlipidemia LDL goal <70 E78.5 ; Hypertension I10 ; Fibromyalgia M79.7 and Chronic fatigue R53.82 [facility] [address] [address] Oct, Type 2 diabetes mellitus without complication, without long-term current use of insulin E11.9 ; Hyperlipidemia LDL goal <70 E78.5 ; Hypertension I10 ; Fibromyalgia M79.7 ; Chronic fatigue R53.82 and Overweight (BMI 25.0-29.9) E66.[address] [address] Aug, Hypertension I10 and Dyshidrotic eczema L30.[address] [address] Jun, Hyperlipidemia LDL goal <[address] [address] Jun, Arthritis M19.[address] [address] May, Hypertension I10 ; Anxiety associated with depression F41.8 ; Hyperlipidemia LDL goal <70 E78.5 and Chronic maxillary sinusitis J32.[address] [address] May, Acute non-recurrent maxillary sinusitis J01.00 and Sore throat J02.[address] [address] May, Dysthymia F34.[address] [address] Apr, Hypertension I10 [address] [address] Apr, Cough R05 ; Sore throat J02.9 and Bronchitis J40 [address] [address] Mar, Anxiety associated with depression F41.8 ; Adjustment disorder with anxiety F43.22 and Depression F32.[address] [address] Mar, [address] [address] Mar, Type 2 diabetes mellitus without complication, without long-term current use of insulin E11.9 ; Hypertension I10 ; Hyperlipidemia LDL goal <70 E78.5 ; Arthritis M19.90 ; Long-term use of high-risk medication Z79.899 and Dysthymia F34.1 [place] [id number] [place] [address] Mar, [place] [address] [address] Mar, [facility] [id number] [place] [address] Feb, [place] [address] [address] Feb, Acute right hip pain M25.551 and Hypertension I10 [place] [id number] [place] [address] Feb, Diabetes E11.9 [place] [id number] [place] [address] Jan, Hypertension I10 [place] [id number] [place] [address] Jan, Hypertension I10 [place] [id number] [place] [address] Dec, Dysuria R30.0 [place] [id number] [place] [address] Dec, [facility] [facility] [id number] [place] [address] Dec, Fibromyalgia M79.7 [facility] [id number] [place] [address] Dec, Acute recurrent frontal sinusitis J01.11 and Hypertension I10 [place] [id number] [place] [address] Dec, Hypertension I10 [facility] [address], [place] [address] Dec, [facility] [id number] [place] [address] Dec, Hypertension I10 [place] [id number] [place] [address] Nov, [place] [id number] [place] [address] Oct, Fibromyalgia M79.7 ; Hypertension I10 ; Depression F32.9 ; Hypercholesterolemia E78.0 ; Anxiety associated with depression F41.8 and Diabetes E11.9 [place] [id number] [place] [address] September, Essential hypertension I10 ; Diabetes E11.9 ; Anxiety associated with depression F41.8 and Hypercholesterolemia E78.0 [place] [id number] [address] Aug, [place] [id number] [place] [address] Aug, Diabetes E11.9 [place] [id number] [place] [address] Aug, [place] [address], [place] [address] Jul, Acute non-recurrent maxillary sinusitis J01.00 [place] [address], [place] [address] Jul, Anxiety associated with depression F41.8 [place] [id number] [place] [address] Jun, Anxiety associated with depression F41.8 and Hypercholesterolemia E78.0 [place] [address], [place] [address] May, Diabetes E11.9 ; Insomnia G47.00 ; Fibromyalgia M79.7 ; Hypercholesterolemia E78.0 ; Anxiety associated with depression F41.8 [address] Essential hypertension I10 [facility] [id number] [place] [address] May, [facility] [id number] [place] [address] May, [facility] [address] [address] Mar, [facility] [id number] [place] [address] Mar, Hypertension I10 [facility] [address] [address] Feb, [facility] [address] [address] Feb, [facility] [id number] [place] [address] Feb, Anxiety associated with depression F41.8 ; Chest tightness R07.89 and Elevated blood pressure I10 [place] [id number] [place] [address] Feb, Encounter for immunization Z23 ; Bronchitis J40 ; Diabetes E11.9 ; Hypertension I10 ; Insomnia G47.00 ; Hypercholesterolemia E78.0 ; Depression F32.[address] [facility] [id number] [place] [address] Jan, Bronchitis J40 and Depression F32.9 [facility] [id number] [place] [address] Jan, Bronchitis J40 [facility] [id number] [place] [address] Dec, [facility] [id number] [place] [address] Dec, [facility] [address] [address] Nov, Acute non-recurrent frontal sinusitis J01.10 and Hypertension I10 [place] [address] [address] Nov, [place] [address] [address] Nov, Diabetes E11.9 ; Fibromyalgia M79.7 ; Hypertension I10 ; Insomnia G47.00 ; Depression F32.9 and Hypercholesterolemia E78.0 [place] [address] [address] Oct, Hypercholesterolemia E78.0 [place] [address] [address] September, [place] [address] [address] Aug, Diabetes E11.9 ; Fibromyalgia M79.7 ; Hypertension I10 ; Insomnia G47.00 ; Depression F32.9 ; Shoulder pain M25.519 ; Hypercholesterolemia E78.0 and Pain in right shoulder M25.511 [place] [address] [address] Jul, [place] [id number] [place] [address] Jun, Hypercholesterolemia E78.0 [place] [address] [address] Jun, [place] [address] [address] May, [place] [address] [address] May, Well woman exam Z01.419 [place] [address] [address] May, Hypertension I10 ; Diabetes E11.9 ; Fibromyalgia M79.7 ; Insomnia G47.00 ; Depression F32.[address] [facility] [address] [address] Apr, [facility] [address] [address] Apr, Fibromyalgia M79.7 ; Hypertension I10 ; Bronchitis J40 ; Insomnia G47.00 ; Depression F32.9 ; Shoulder pain M25.519 [address]0 [facility] [address] [address] Mar, Hyperlipemia E78.5 [place] [address] [address] Mar, Diabetes E11.9 ; Hypertension I10 ; Insomnia G47.00 ; Depression F32.9 and Shoulder pain M25.[address] [address] Mar, [place] [address] [address] Feb, [address] [address] Feb, Diabetes E11.9 ; Encounter for immunization Z23 ; Fibromyalgia M79.7 ; Hypertension I10 ; Bronchitis J40 and Insomnia G47.[address] [address] Feb, Bronchitis J40 [facility] [address] [address] Jan, Bronchitis 490 [facility] [address] [address] Aug, [facility] [address] [address] Aug, [facility] [address] [place] [address] Jul, [facility] [place] [facility] [address] [id number] [place] [address] Jul, [facility] [place] [facility] [address] [id number] [place] [address] Jul, [facility] [place] [facility] [address] [facility] [id number] [place] [address] Jul, [facility] [place] [facility] [address] [id number] [place] [address] Jun, [facility] [place] [facility] [address] [id number] [place] [address] Jun, [facility] [place] [facility] [address] [facility] [id number] [place] [address] May, [facility] [place] [facility] [address] [facility] [id number] [place] [address] May, [facility] [place] [facility] [address] [facility] [id number] [place] [address] Apr, [facility] [place] [facility] [address] [facility] [id number] [place] [address] Apr, [facility] [place] [facility] [address] [facility] [id number] [place] [address] Apr, [facility] [place] [facility] [address] [facility] [id number] [place] [address] Apr, [facility] [place] [facility] [address] [facility] [id number] [place] [address] Apr, [facility] [place] [facility] [address] [id number] [place] [address] Apr, [facility] [place] [facility] [address] [facility] [id number] [place] [address] Feb, [facility] [place] [facility] [address] [facility] [id number] [place] [address] Feb, [facility] [place] [facility] [address] [id number] [place] [address] Jan, [facility] [place] [facility] [address] [id number] [place] [address] Jan, [facility] [place] [facility] [address] [id number] [place] [address] Dec, [facility] [place] [facility] [address] [id number] [place] [address] Dec, [facility] [place] [facility] [address] [id number] [place] [address] September, [facility] [place] [facility] [address] [id number] [place] [address] September, [facility] [place] [facility] [address] [id number] [place] [address] September, [facility] [place] [facility] [address] [id number] [place] [address] September, [facility] [place] [facility] [address] [id number] [place] [address] September, [facility] [place] [facility] [address] [id number] [place] [address] September, [facility] [place] [facility] [address] [id number] [place] [address] Aug, [facility] [place] [facility] [address] [id number] [place] [address] Aug, [facility] [place] [facility] [address] [id number] [place] [address] Jul, [facility] [place] [facility] [address] [id number] [place] [address] Jul, [facility] [place] [facility] [address] [id number] [place] [address] May, [facility] [place] [facility] [address] [id number] [place] [address] May, [facility] [address] [id number] [place] [address] May, [facility] [place] [facility] [address] [id number] [place] [address] May, [facility] [place] [facility] [address] [id number] [place] [address] May, [facility] [place] [facility] [address] [id number] [place] [address] May, [facility] [address] [id number] [place] [address] Apr, [facility] [place] [facility] [address] [id number] [place] [address] Apr, [facility] [place] [facility] [address] [id number] [place] [address] Apr, [facility] [place] [facility] [address] [id number] [place] [address] Apr, [facility] [place] [facility] [address] [id number] [place] [address] Apr, [facility] [place] [facility] [address] [id number] [place] [address] Apr, [facility] [place] [facility] [address] [id number], [place] [address] Apr, [facility] [place] [facility] [address] [id number], [place] [address] Apr, [facility] [place] [facility] [address] [id number] [place] [address] Feb, [facility] [place] [facility] [address] [id number], [place] [address] 31 Feb, 2013 [facility] [place] [facility] [address] [id number], [place] [address] 15 Feb, 2013 [facility] [place] [facility] [address] [id number] [place] [address] Feb, [facility] [address] [id number] [place] [address] Feb, [facility] [place] [facility] [address] [id number] [place] [address] Feb, [facility] [address] [id number] [place] [address] Feb, [facility] [place] [facility] [address] [id number] [place] [address] Feb, [facility] [place] [facility] [address] [id number] [place] [address] Nov, [facility] [place] [facility] [address] [id number] [place] [address] Nov, [facility] [address] [id number] [place] [address] Oct, [facility] [place] [facility] [address] [id number] [place] [address] Oct, [facility] [place] [facility] [address] [id number] [place] [address] Oct, [facility] [place] [facility] [address] [id number] [place] [address] September, [facility] [place] [facility] [address] [id number] [place] [address] September, [facility] [place] [facility] [address] [id number] [place] [address] September, [facility] [place] [facility] [address] [id number] [place] [address] September, [facility] [place] [facility] [address] [id number] [place] [address] September, [facility] [place] [facility] [address] [id number] [place] [address] September, [facility] [place] [facility] [address] [id number] [place] [address] September, [facility] [address] [id number] [place] [address] September, [facility] [address] [id number] [place] [address] September, [facility] [address] [id number] [place] [address] September, [facility] [address] [id number] [place] [address] Aug, [facility] [address] [id number] [place] [address] Jul, [facility] [address] [id number] [place] [address] Jun, [facility] [address] [id number] [place] [address] Jun, [facility] [address] [id number] [place] [address] May, [facility] [address] [id number] [place] [address] May, [facility] [address] [id number] [place] [address] Mar, [facility] [address] [id number] [place] [address] Mar, [facility] [place] [facility] [address] [id number] [place] [address] Mar, [facility] [place] [facility] [address] [id number] [place] [address] Mar, [facility] [place] [facility] [address] [id number] [place] [address] Feb, [facility] [place] [facility] [address] [id number], [place] [address] Feb, [facility] [place] [facility] [address] [id number] [place] [address] Feb, [facility] [place] [facility] [address] [id number] [place] [address] Feb, [facility] [place] [facility] [address] [id number] [place] [address] Feb, [facility] [place] [facility] [address] [id number] [place] [address] Feb, [facility] [place] [facility] [address] [id number] [place] [address] Feb, [facility] [place] [facility] [address] [id number] [place] [address] 18 Jan, 2012 [facility] [place] [facility] [address] [id number] [place] [address] 14 Jan, 2012 [facility] [place] [facility] [address] [id number] [place] [address] 10 Jan, 2012 [facility] [place] [facility] [address] [id number] [place] [address] 30 Dec, 2011 [facility] [place] [facility] [address] [id number] [place] [address] Dec, [facility] [place] [facility] [address] [id number] [place] [address] Dec, [facility] [place] [facility] [address] [id number] [place] [address] Nov, [facility] [place] [facility] [address] [id number] [place] [address] Oct, [facility] [place] [facility] [address] [id number] [place] [address] Oct, [facility] [place] [facility] [address] [id number] [place] [address] Oct, [facility] [place] [facility] [address] [id number] [place] [address] Oct, [facility] [address] [id number] [place] [address] Oct, [facility] [address] [id number] [place] [address] Aug, [facility] [address] [id number] [place] [address] Aug, [facility] [address] [id number] [place] [address] Jul, [facility] [address] [facility] [id number] [place] [address] Jun, [facility] [address] [id number] [id number] Jun, [facility] [id number] [place] [address] May, [facility] [address] [id number] [place] [address] May, [facility] [id number] [place] [address] May, [facility] [address] [id number] [place] [address] May, [facility] [address] [id number] [place] [address] May, [facility] [address] [id number] [place] [address] Apr, [facility] [address] [id number] [place] [address] Apr, [facility] [address] [id number] [place] [address] Apr, [facility] [address] [id number] [place] [address] Apr, [facility] [address] [facility] [id number] [address] Apr, [facility] [address] [facility] [id number][place] [address] Apr, [facility] [address] [facility] [id number], [place] [address] Apr, [facility] [address] [facility] [id number], [place] [address] Apr, IMMUNIZATIONS No Known Immunizations SOCIAL HISTORY [...]
--- OUTSIDE RECORDS SUMMARY | 2018-09-19 20:32 | XMS REPORT ---
Author Author HARVEY TORRES [facility] Address [address] [place] [address] Care Team Providers Care Supervisor Coffee Name Role Phone HARVEY TORRES Unavailable PROBLEMS Type Condition ICD9-CM Code VQL60-FZ Code Onset Dates Condition Status SNOMED Code Problem Hyperlipidemia LDL goal <70 E78.5 Active 64983679 Problem Arthritis M19.90 Active 7591564 Problem Long-term use of high-risk medication Z79.899 Active 880743237 Problem Insomnia G47.00 Active 568056755 Problem Hypertension I10 Active 48503915 Problem Fibromyalgia M79.7 Active 22741981 Problem Anxiety associated with depression F41.8 Active 243318417 Problem Type 2 diabetes mellitus with other specified complication, without long- term current use of insulin E11.69 Active 11043718 Problem Hypercholesterolemia E78.0 Active 46359712 Problem Chronic maxillary sinusitis J32.0 Active 25517130 Problem Adjustment disorder with anxiety F43.22 Active 96834786 Problem Chronic fatigue R53.82 Active 27364957 Problem Overweight (BMI 25.0-29.9) E66.3 Active [id number] ALLERGIES No Information ENCOUNTERS Encounter Location Date Diagnosis [facility] [id number] [place] [address] Mar, Hypertension I10 [facility] [id number] [place] [address] Feb, Hypertension I10 ; Hyperlipidemia LDL goal <70 E78.5 and Type 2 diabetes mellitus with other specified complication, without long-term current use of insulin E11.69 [facility] [id number] [place] [address] Feb, Hypertension I10 [facility] [id number] [place] [address] Feb, Fibromyalgia M79.7 [facility] [id number] [place] [address] Jan, Hypertension I10 ; Trochanteric bursitis, right hip M70.61 ; Trochanteric bursitis of left hip M70.62 ; Chronic fatigue R53.82 ; Type 2 diabetes mellitus without complication, without long-term current use of insulin E11.9 and Hypercholesterolemia E78.0 [facility] [address] [address] Dec, Fibromyalgia M79.7 [facility] [address] [address] Nov, Hyperlipidemia LDL goal <70 E78.5 [facility] [address] [address] Nov, Hyperlipidemia LDL goal <70 E78.5 [facility] [address] [address] Nov, Hypercholesterolemia E78.0 [facility] [address] [address] Oct, Hyperlipidemia LDL goal <70 E78.5 [facility] [id number] [place] [address] Oct, Type 2 diabetes mellitus without complication, without long-term current use of insulin E11.9 ; Hyperlipidemia LDL goal <70 E78.5 ; Hypertension I10 ; Fibromyalgia M79.7 and Chronic fatigue R53.82 [facility] [id number] [place] [address] Oct, Type 2 diabetes mellitus without complication, without long-term current use of insulin E11.9 ; Hyperlipidemia LDL goal <70 E78.5 ; Hypertension I10 ; Fibromyalgia M79.7 ; Chronic fatigue R53.82 and Overweight (BMI 25.0-29.9) E66.3 [facility] [id number] [place] [address] Aug, Hypertension I10 and Dyshidrotic eczema L30.1 [facility] [address] [address] Jun, Hyperlipidemia LDL goal <70 E78.5 [facility] [address] [place] [id number] Jun, Arthritis M19.[address] [address] May, Hypertension I10 ; Anxiety associated with depression F41.8 ; Hyperlipidemia LDL goal <70 E78.5 and Chronic maxillary sinusitis J32.[address] [address] May, Acute non-recurrent maxillary sinusitis J01.00 and Sore throat J02.[address] [address] May, Dysthymia F34.1 [facility] [address] [address] Apr, Hypertension I10 [address] [address] Apr, Cough R05 ; Sore throat J02.9 and Bronchitis J40 [address] [address] Mar, Anxiety associated with depression F41.8 ; Adjustment disorder with anxiety F43.22 and Depression F32.9 [place] [id number] [place] [address] Mar, [address] [address] Mar, Type 2 diabetes mellitus without complication, without long-term current use of insulin E11.9 ; Hypertension I10 ; Hyperlipidemia LDL goal <70 E78.5 ; Arthritis M19.90 ; Long-term use of high-risk medication Z79.899 and Dysthymia F34.1 [facility] [id number] [place] [address] Mar, [facility] [id number] [place] [address] Mar, [facility] [id number] [place] [address] Feb, [facility] [id number] [place] [address] Feb, Acute right hip pain M25.551 and Hypertension I10 [facility] [id number] [place] [address] Feb, Diabetes E11.9 [facility] [id number] [place] [address] 27 Jan, 2017 Hypertension I10 [facility] [id number] [place] [address] Jan, Hypertension I10 [facility] [id number] [place] [address] Dec, Dysuria R30.0 [facility] [id number] [place] [address] Dec, [facility] [id number] [place] [address] Dec, Fibromyalgia M79.7 [facility] [id number] [place] [address] Dec, Acute recurrent frontal sinusitis J01.11 and Hypertension I10 [facility] [id number] [place] [address] Dec, Hypertension I10 [facility] [id number] [place] [address] Dec, [facility] [id number] [place] [address] Dec, Hypertension I10 [facility] [address] [address] Nov, [facility] [id number] [place] [address] Oct, Fibromyalgia M79.7 ; Hypertension I10 ; Depression F32.9 ; Hypercholesterolemia E78.0 ; Anxiety associated with depression F41.8 and Diabetes E11.9 [facility] [id number] [place] [address] September, Essential hypertension I10 ; Diabetes E11.9 ; Anxiety associated with depression F41.8 and Hypercholesterolemia E78.0 [facility] [id number] [place] [address] Aug, [facility] [id number] [place] [address] Aug, Diabetes E11.9 [facility] [id number] [place] [address] Aug, [facility] [id number] [place] [address] Jul, Acute non-recurrent maxillary sinusitis J01.00 [place] [place] [address] [address] Jul, Anxiety associated with depression F41.8 [place] [id number] [address] Jun, Anxiety associated with depression F41.8 and Hypercholesterolemia E78.0 [facility] [address] [address] May, Diabetes E11.9 ; Insomnia G47.00 ; Fibromyalgia M79.7 ; Hypercholesterolemia E78.0 ; Anxiety associated with depression F41.8 and Essential hypertension I10 [facility] [address] [address] May, [facility] [id number] [place] [address] May, [facility] [id number] [place] [address] Mar, [facility] [id number] [place] [address] Mar, Hypertension I10 [facility] [address] [address] Feb, [facility] [address] [address] Feb, [facility] [address] [address] Feb, Anxiety associated with depression F41.8 ; Chest tightness R07.89 and Elevated blood pressure I10 [place] [address] [address] Feb, Encounter for immunization Z23 ; Bronchitis J40 ; Diabetes E11.9 ; Hypertension I10 ; Insomnia G47.00 ; Hypercholesterolemia E78.0 ; Depression F32.9 and Fibromyalgia M79.7 [facility] [address] [address] Jan, Bronchitis J40 and Depression F32.9 [facility] [id number] [place] [address] Jan, Bronchitis J40 [facility] [id number] [place] [address] Dec, [facility] [address] [address] Dec, [facility] [address] [address] Nov, Acute non-recurrent frontal sinusitis J01.10 and Hypertension I10 [facility] [address] [address] Nov, [facility] [id number] [place] [address] Nov, Diabetes E11.9 ; Fibromyalgia M79.7 ; Hypertension I10 ; Insomnia G47.00 ; Depression F32.9 and Hypercholesterolemia E78.0 [facility] [id number] [place] [address] Oct, Hypercholesterolemia E78.0 [facility] [address] [address] September, [facility] [id number] [place] [address] Aug, Diabetes E11.9 ; Fibromyalgia M79.7 ; Hypertension I10 ; Insomnia G47.00 ; Depression F32.9 ; Shoulder pain M25.519 ; Hypercholesterolemia E78.0 and Pain in right shoulder M25.511 [place] [address] [address] Jul, [facility] [address] [address] Jun, Hypercholesterolemia E78.0 [place] [address] [address] Jun, [facility] [id number] [place] [address] May, [facility] [address] [address] May, Well woman exam Z01.419 [place] [id number] [place] [address] May, Hypertension I10 ; Diabetes E11.9 ; Fibromyalgia M79.7 ; Insomnia G47.00 ; Depression F32.9 and Hypercholesterolemia E78.0 [facility] [id number] [place] [address] Apr, [place] [address] [address] Apr, Fibromyalgia M79.7 ; Hypertension I10 ; Bronchitis J40 ; Insomnia G47.00 ; Depression F32.9 ; Shoulder pain M25.519 and Hypercholesterolemia E78.0 [facility] [address] [address] Mar, Hyperlipemia E78.5 [facility] [address] [address] Mar, Diabetes E11.9 ; Hypertension I10 ; Insomnia G47.00 ; Depression F32.9 and Shoulder pain M25.519 [place] [address] [address] Mar, [place] [address] [address] Feb, [address] [address] Feb, Diabetes E11.9 ; Encounter for immunization Z23 ; Fibromyalgia M79.7 ; Hypertension I10 ; Bronchitis J40 and Insomnia G47.[address] [address] Feb, Bronchitis J40 [address] [address] Jan, Bronchitis 490 [facility] [address] [address] Aug, [facility] [address] [address] Aug, [place] [address] [address] Jul, [facility] [address] [address] Jul, [facility] [address] [place] [address] Jul, [facility] [place] [facility] [address] [id number] [place] [address] Jul, [facility] [place] [facility] [address] [id number] [place] [address] Jun, [facility] [place] [facility] [address] [id number] [place] [address] Jun, [facility] [place] [facility] [address] [id number] [place] [address] May, [facility] [place] [facility] [address] [id number] [place] [address] May, [facility] [place] [facility] [address] [id number] [place] [address] Apr, [facility] [place] [facility] [address] [id number] [place] [address] Apr, [facility] [place] [facility] [address] [id number] [place] [address] Apr, [facility] [place] [facility] [address] [id number] [place] [address] Apr, [facility] [place] [facility] [address] [id number] [place] [address] Apr, [facility] [place] [facility] [address] [id number] [place] [address] Apr, [facility] [place] [facility] [address] [id number] [address] Feb, [facility] [place] [facility] [address] [id number] [place] [address] Feb, [facility] [place] [facility] [address] [id number] [place] [address] Jan, [facility] [place] [facility] [address] [id number] [place] [address] Jan, [facility] [place] [facility] [address] [id number] [place] [address] Dec, [facility] [place] [facility] [address] [id number] [place] [address] Dec, [facility] [place] [facility] [address] [id number] [place] [address] September, [facility] [place] [facility] [address] [id number] [place] [address] September, [facility] [place] [facility] [address] [id number] [place] [address] September, [facility] [place] [facility] [address] [id number] [place] [address] September, [facility] [place] [facility] [address] [id number] [place] [address] September, [facility] [place] [facility] [address] [id number] [place] [address] September, [facility] [place] [facility] [address] [id number] [place] [address] Aug, [facility] [place] [facility] [address] [id number] [place] [address] Aug, [facility] [place] [facility] [address] [id number] [place] [address] Jul, [facility] [place] [facility] [address] [id number] [place] [address] Jul, [facility] [place] [facility] [address] [id number] [place] [address] May, [facility] [place] [facility] [address] [id number] [place] [address] May, [facility] [place] [facility] [address] [id number] [place] [address] May, [facility] [place] [facility] [address] [id number] [place] [address] May, [facility] [place] [facility] [address] [id number] [place] [address] May, [facility] [address] [id number] [place] [address] May, [facility] [address] [id number] [place] [address] Apr, [facility] [place] [facility] [address] [id number] [place] [address] Apr, [facility] [address] [id number] [place] [address] Apr, [facility] [address] [id number] [place] [address] Apr, [facility] [address] [id number] [place] [address] Apr, [facility] [address] [id number] [place] [address] Apr, [facility] [address] [id number] [place] [address] Apr, [facility] [address] [id number] [place] [address] Apr, [facility] [address] [id number] [place] [address] Feb, [facility] [place] [facility] [address] [id number], [place] [address] 31 Feb, 2013 [facility] [place] [facility] [address] [id number] [place] [address] 15 Feb, 2013 [facility] [place] [facility] [address] [id number] [place] [address] 15 Feb, 2013 [facility] [place] [facility] [address] [id number] [place] [address] 10 Feb, 2013 [facility] [place] [facility] [address] [id number] [place] [address] Feb, [facility] [address] [id number] [place] [address] Feb, [facility] [place] [facility] [address] [id number] [place] [address] Feb, [facility] [place] [facility] [address] [id number] [place] [address] Nov, [facility] [place] [facility] [address] [id number] [place] [address] Nov, [facility] [place] [facility] [address] [id number] [place] [address] Oct, [facility] [place] [facility] [address] [id number] [place] [address] Oct, [facility] [place] [facility] [address] [id number] [place] [address] Oct, [facility] [place] [facility] [address] [id number] [place] [address] September, [facility] [place] [facility] [address] [id number] [place] [address] September, [facility] [place] [facility] [address] [id number] [place] [address] September, [facility] [place] [facility] [address] [id number] [place] [address] September, [facility] [place] [facility] [address] [id number] [place] [address] September, [facility] [place] [facility] [address] [id number] [place] [address] September, [facility] [place] [facility] [address] [id number] [place] [address] September, [facility] [place] [facility] [address] [id number] [place] [address] September, [facility] [place] [facility] [address] [id number] [place] [address] September, [facility] [address] [id number] [place] [address] September, [facility] [place] [facility] [address] [id number] [place] [address] Aug, [facility] [place] [facility] [address] [id number] [place] [address] Jul, [facility] [place] [facility] [address] [id number] [place] [address] Jun, [facility] [place] [facility] [address] [id number] [place] [address] Jun, [facility] [place] [facility] [address] [id number] [place] [address] May, [facility] [place] [facility] [address] [id number] [place] [address] May, [facility] [address] [id number] [place] [address] Mar, [facility] [place] [facility] [address] [id number] [place] [address] Mar, [facility] [address] [id number] [place] [address] Mar, [facility] [place] [facility] [address] [id number] [place] [address] Mar, [facility] [place] [facility] [address] [id number] [place] [address] Feb, [facility] [place] [facility] [address] [id number] [place] [address] Feb, [facility] [place] [facility] [address] [id number] [place] [address] Feb, [facility] [place] [facility] [address] [id number] [place] [address] Feb, [facility] [place] [facility] [address] [id number] [place] [address] Feb, [facility] [place] [facility] [address] [id number] [place] [address] Feb, [facility] [place] [facility] [address] [id number] [place] [address] 08 Feb, 2012 [facility] [place] [facility] [address] [id number] [place] [address] 18 Jan, 2012 [facility] [place] [facility] [address] [id number] [place] [address] 14 Jan, 2012 [facility] [place] [facility] [address] [id number] [place] [address] 10 Jan, 2012 [facility] [place] [facility] [address] [id number] [place] [address] 30 Dec, 2011 [facility] [place] [facility] [address] [id number] [place] [address] Dec, [facility] [place] [facility] [address] [id number] [place] [address] Dec, [facility] [place] [facility] [address] [id number] [place] [address] Nov, [facility] [place] [facility] [address] [id number] [place] [address] Oct, [facility] [place] [facility] [address] [id number], [place] [address] Oct, [facility] [place] [facility] [address] [id number] [place] [address] Oct, [facility] [place] [facility] [address] [id number] [place] [address] Oct, [facility] [place] [facility] [address] [id number] [place] [address] 07 Oct, 2011 [facility] [place] [facility] [address] [id number] [place] [address] Aug, [facility] [address] [id number] [place] [address] Aug, [facility] [address] [facility] [id number] [place] [address] Jul, [facility] [address] [id number] [place] [address] Jun, [facility] [address] [id number] [id number] Jun, [facility] [id number] [place] [address] May, [facility] [address] [facility] [id number] [place] [address] May, [facility] [id number] [place] [address] May, [facility] [address] [id number] [place] [address] May, [facility] [id number] [place] [address] May, [facility] [address] [id number] [place] [address] Apr, [facility] [address] [id number] [place] [address] Apr, [facility] [place] [facility] [address] [id number] [place] [address] Apr, [facility] [place] [facility] [address] [id number] [place] [address] Apr, [facility] [place] [facility] [address] [facility] [id number] [place] [address] Apr, [facility] [place] [facility] [address] [id number] [place] [address] Apr, [facility] [place] [facility] [address] [facility] [id number] [place] [address] Apr, [facility] [address] [facility] [id number] [place] [address] Apr, IMMUNIZATIONS No Known Immunizations SOCIAL HISTORY Never Assessed REASON FOR VISIT Refill request PLAN OF CARE VITAL SIGNS MEDICATIONS Medication Instructions Dosage Frequency Start Date End Date Duration Status Atenolol 100MG Orally twice a day 1 tablet 12h 30 days Active RESULTS No Results PROCEDURES [...]
--- OUTSIDE RECORDS SUMMARY | 2018-09-19 20:32 | XMS REPORT ---
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 Name Role Phone VASHTI GARCIA Unavailable PROBLEMS Type Condition ICD9-CM Code [id number] Code Onset Dates Condition Status SNOMED Code Problem Hyperlipidemia LDL goal <70 E78.5 Active 14866007 Problem Arthritis M19.90 Active 2997493 Problem Long-term use of high-risk medication Z79.899 Active 552110206 Problem Insomnia G47.00 Active 341277461 Problem Hypertension I10 Active 83405219 Problem Fibromyalgia M79.7 Active 92578224 Problem Anxiety associated with depression F41.8 Active 905596393 Problem Type 2 diabetes mellitus with other specified complication, without long- term current use of insulin E11.69 Active 61798900 Problem Hypercholesterolemia E78.0 Active 21424321 Problem Chronic maxillary sinusitis J32.0 Active 72528128 Problem Adjustment disorder with anxiety F43.22 Active 84310352 Problem Chronic fatigue R53.82 Active 95165441 Problem Overweight (BMI 25.0-29.9) E66.3 Active 140145598 ALLERGIES No Information ENCOUNTERS Encounter Location Date Diagnosis [facility] [id number] [place] [address] Feb, Hypertension I10 ; Hyperlipidemia LDL goal <70 E78.5 and Type 2 diabetes mellitus with other specified complication, without long-term current use of insulin E11.69 [facility] [id number] [place] [address] Feb, Hypertension I10 [facility] [id number] [place] [address] Feb, Fibromyalgia M79.7 [facility] [id number] [place] [address] Jan, Hypertension I10 ; Trochanteric bursitis, right hip M70.61 ; Trochanteric bursitis of left hip M70.62 ; Chronic fatigue R53.82 ; Type 2 diabetes mellitus without complication, without long-term current use of insulin E11.9 and Hypercholesterolemia E78.0 [facility] [id number] [place] [address] Dec, Fibromyalgia M79.7 [facility] [id number] [place] [address] Nov, Hyperlipidemia LDL goal <70 E78.5 [facility] [id number] [place] [address] Nov, Hyperlipidemia LDL goal <70 E78.5 [facility] [id number] [place] [address] Nov, Hypercholesterolemia E78.0 [facility] [id number] [place] [address] Oct, Hyperlipidemia LDL goal <70 E78.5 [facility] [id number] [place] [address] Oct, Type 2 diabetes mellitus without complication, without long-term current use of insulin E11.9 ; Hyperlipidemia LDL goal <70 E78.5 ; Hypertension I10 ; Fibromyalgia M79.7 and Chronic fatigue R53.82 [facility] [id number] [place] [address] Oct, Type 2 diabetes mellitus without complication, without long-term current use of insulin E11.9 ; Hyperlipidemia LDL goal <70 E78.5 ; Hypertension I10 ; Fibromyalgia M79.7 ; Chronic fatigue R53.82 and Overweight (BMI 25.0-29.9) E66.3 [facility] [id number] [place] [address] Aug, Hypertension I10 and Dyshidrotic eczema L30.1 [facility] [id number] [place] [address] Jun, Hyperlipidemia LDL goal <70 E78.5 [facility] [id number] [place] [address] Jun, Arthritis M19.90 [facility] [id number] [place] [address] May, Hypertension I10 ; Anxiety associated with depression F41.8 ; Hyperlipidemia LDL goal <70 E78.5 and Chronic maxillary sinusitis J32.[address] [address] May, Acute non-recurrent maxillary sinusitis J01.00 and Sore throat J02.[address] [address] May, Dysthymia F34.[address] [address] Apr, Hypertension I10 [address] [address] Apr, Cough R05 ; Sore throat J02.9 and Bronchitis J40 [address] [address] Mar, Anxiety associated with depression F41.8 ; Adjustment disorder with anxiety F43.22 and Depression F32.9 [facility] [id number] [place] [address] Mar, [facility] [id number] [place] [address] Mar, Type 2 diabetes mellitus without complication, without long-term current use of insulin E11.9 ; Hypertension I10 ; Hyperlipidemia LDL goal <70 E78.5 ; Arthritis M19.90 ; Long-term use of high-risk medication Z79.899 and Dysthymia F34.1 [place] [id number] [place] [address] Mar, [facility] [id number] [place] [address] Mar, [facility] [id number] [place] [address] Feb, [facility] [id number] [place] [address] Feb, Acute right hip pain M25.551 and Hypertension I10 [facility] [id number] [place] [address] Feb, Diabetes E11.9 [facility] [id number] [place] [address] Jan, Hypertension I10 [facility] [id number] [place] [address] Jan, Hypertension I10 [facility] [id number] [place] [address] Dec, Dysuria R30.0 [facility] [id number] [place] [address] Dec, [facility] [id number] [place] [address] Dec, Fibromyalgia M79.7 [facility] [id number] [place] [address] Dec, Acute recurrent frontal sinusitis J01.11 and Hypertension I10 [facility] [address] [address] Dec, Hypertension I10 [facility] [id number] [place] [address] Dec, [facility] [id number] [place] [address] Dec, Hypertension I10 [facility] [id number] [place] [address] Nov, [facility] [address] [address] Oct, Fibromyalgia M79.7 ; Hypertension I10 ; Depression F32.9 ; Hypercholesterolemia E78.0 ; Anxiety associated with depression F41.8 and Diabetes E11.9 [facility] [id number] [address] September, Essential hypertension I10 ; Diabetes E11.9 ; Anxiety associated with depression F41.8 and Hypercholesterolemia E78.0 [facility] [id number] [place] [address] Aug, [facility] [id number] [place] [address] Aug, Diabetes E11.9 [facility] [id number] [place] [address] Aug, [facility] [id number] [place] [address] Jul, Acute non-recurrent maxillary sinusitis J01.00 [place] [id number] [place] [address] Jul, Anxiety associated with depression F41.8 [facility] [id number] [place] [address] Jun, Anxiety associated with depression F41.8 and Hypercholesterolemia E78.0 [facility] [id number] [place] [address] May, Diabetes E11.9 ; Insomnia G47.00 ; Fibromyalgia M79.7 ; Hypercholesterolemia E78.0 ; Anxiety associated with depression F41.8 and Essential hypertension I10 [facility] [id number] [place] [address] May, [facility] [id number] [place] [address] May, [facility] [address] [address] Mar, [facility] [address] [address] Mar, Hypertension I10 [facility] [address] [address] Feb, [facility] [address] [address] Feb, [facility] [address] [address] Feb, Anxiety associated with depression F41.8 ; Chest tightness R07.89 and Elevated blood pressure I10 [facility] [address] [address] Feb, Encounter for immunization Z23 ; Bronchitis J40 ; Diabetes E11.9 ; Hypertension I10 ; Insomnia G47.00 ; Hypercholesterolemia E78.0 ; Depression F32.9 and Fibromyalgia M79.7 [facility] [address] [address] Jan, Bronchitis J40 and Depression F32.9 [facility] [address] [address] Jan, Bronchitis J40 [facility] [address] [address] Dec, [facility] [address] [address] Dec, [facility] [address] [address] Nov, Acute non-recurrent frontal sinusitis J01.10 and Hypertension I10 [facility] [address] [address] Nov, [facility] [address] [address] Nov, Diabetes E11.9 ; Fibromyalgia M79.7 ; Hypertension I10 ; Insomnia G47.00 ; Depression F32.9 and Hypercholesterolemia E78.0 [facility] [address] [address] Oct, Hypercholesterolemia E78.0 [facility] [address] [address] September, [facility] [address] [address] Aug, Diabetes E11.9 ; Fibromyalgia M79.7 ; Hypertension I10 ; Insomnia G47.00 ; Depression F32.9 ; Shoulder pain M25.519 ; Hypercholesterolemia E78.0 and Pain in right shoulder M25.511 [facility] [address] [address] Jul, [facility] [address] [address] Jun, Hypercholesterolemia E78.0 [facility] [address] [address] Jun, [facility] [address] [address] May, [facility] [address] [address] May, Well woman exam Z01.419 [facility] [address] [address] May, Hypertension I10 ; Diabetes E11.9 ; Fibromyalgia M79.7 ; Insomnia G47.00 ; Depression F32.9 and Hypercholesterolemia E78.0 [facility] [address] [address] Apr, [facility] [address] [address] Apr, Fibromyalgia M79.7 ; Hypertension I10 ; Bronchitis J40 ; Insomnia G47.00 ; Depression F32.9 ; Shoulder pain M25.519 and Hypercholesterolemia E78.0 [facility] [address] [address] Mar, Hyperlipemia E78.5 [facility] [address] [address] Mar, Diabetes E11.9 ; Hypertension I10 ; Insomnia G47.00 ; Depression F32.9 and Shoulder pain M25.519 [facility] [address] [address] Mar, [facility] [address] [address] Feb, [facility] [address] [address] Feb, Diabetes E11.9 ; Encounter for immunization Z23 ; Fibromyalgia M79.7 ; Hypertension I10 ; Bronchitis J40 and Insomnia G47.00 [facility] [address] [address] Feb, Bronchitis J40 [facility] [address] [address] Jan, Bronchitis 490 [facility] [address] [address] Aug, [facility] [address] [address] Aug, [facility] [address] [address] Jul, [facility] [address] [address] Jul, [facility] [address] [address] Jul, [facility] [address] [address] Jul, [facility] [place] [facility] [address] [id number] [place] [address] Jun, [facility] [place] [facility] [address] [id number] [place] [address] Jun, [facility] [place] [facility] [address] [id number] [place] [address] May, [facility] [place] [facility] [address] [id number] [place] [address] May, [facility] [place] [facility] [address] [id number] [place] [address] Apr, [facility] [place] [facility] [address] [id number] [place] [address] Apr, [facility] [place] [facility] [address] [id number] [place] [address] Apr, [facility] [place] [facility] [address] [id number] [place] [address] Apr, [facility] [place] [facility] [address] [id number] [place] [address] Apr, [facility] [place] [facility] [address] [id number] [place] [address] Apr, [facility] [place] [facility] [address] [id number] [place] [address] Feb, [facility] [place] [facility] [address] [id number] [address] Feb, [facility] [place] [facility] [address] [id number] [place] [address] Jan, [facility] [place] [facility] [address] [id number] [place] [address] Jan, [facility] [place] [facility] [address] [id number] [address] Dec, [facility] [place] [facility] [address] [id number] [address] Dec, [facility] [address] [id number] [place] [address] September, [facility] [place] [facility] [address] [id number] [place] [address] September, [facility] [place] [facility] [address] [id number] [place] [address] September, [facility] [place] [facility] [address] [id number] [place] [address] September, [facility] [place] [facility] [address] [id number] [place] [address] September, [facility] [place] [facility] [address] [id number] [place] [address] September, [facility] [place] [facility] [address] [id number] [place] [address] Aug, [facility] [place] [facility] [address] [id number] [place] [address] Aug, [facility] [place] [facility] [address] [id number] [place] [address] Jul, [facility] [place] [facility] [address] [id number] [place] [address] Jul, [facility] [place] [facility] [address] [id number] [place] [address] May, [facility] [place] [facility] [address] [id number] [place] [address] May, [facility] [place] [facility] [address] [id number] [place] [address] May, [facility] [place] [facility] [address] [id number] [place] [address] May, [facility] [place] [facility] [address] [id number] [place] [address] May, [facility] [place] [facility] [address] [id number] [place] [address] May, [facility] [place] [facility] [address] [id number] [place] [address] Apr, [facility] [place] [facility] [address] [id number] [place] [address] Apr, [facility] [place] [facility] [address] [id number] [place] [address] Apr, [facility] [place] [facility] [address] [id number] [place] [address] Apr, [facility] [place] [facility] [address] [id number] [place] [address] Apr, [facility] [place] [facility] [address] [id number] [place] [address] Apr, [facility] [place] [facility] [address] [id number] [place] [address] Apr, [facility] [place] [facility] [address] [id number] [place] [address] Apr, [facility] [place] [facility] [address] [id number] [place] [address] Feb, [facility] [place] [facility] [address] [id number] [place] [address] 31 Feb, 2013 [facility] [place] [facility] [address] [id number] [place] [address] 15 Feb, 2013 [facility] [place] [facility] [address] [id number] [place] [address] 15 Feb, 2013 [facility] [place] [facility] [address] [id number] [place] [address] 10 Feb, 2013 [facility] [place] [facility] [address] [id number] [place] [address] 10 Feb, 2013 [facility] [place] [facility] [address] [id number] [place] [address] Feb, [facility] [address] [id number] [place] [address] Feb, [facility] [address] [id number] [place] [address] Nov, [facility] [address] [id number] [place] [address] Nov, [facility] [address] [id number] [place] [address] Oct, [facility] [address] [id number] [place] [address] Oct, [facility] [address] [id number] [place] [address] Oct, [facility] [address] [id number] [place] [address] September, [facility] [address] [id number] [place] [address] September, [facility] [address] [id number] [place] [address] September, [facility] [address] [id number] [place] [address] September, [facility] [address] [id number] [place] [address] September, [facility] [place] [facility] [address] [id number] [address] September, [facility] [place] [facility] [address] [id number] [place] [address] September, [facility] [place] [facility] [address] [id number] [place] [address] September, [facility] [place] [facility] [address] [id number] [place] [address] September, [facility] [place] [facility] [address] [id number] [place] [address] September, [facility] [address] [id number] [place] [address] Aug, [facility] [place] [facility] [address] [id number] [place] [address] Jul, [facility] [address] [id number] [place] [address] Jun, [facility] [place] [facility] [address] [id number] [place] [address] Jun, [facility] [address] [id number] [place] [address] May, [facility] [place] [facility] [address] [id number] [place] [address] May, [facility] [address] [id number] [place] [address] Mar, [facility] [address] [id number] [place] [address] Mar, [facility] [place] [facility] [address] [id number] [place] [address] Mar, [facility] [address] [facility] [id number] [place] [address] Mar, [facility] [place] [facility] [address] [id number] [place] [address] Feb, [facility] [place] [facility] [address] [id number] [place] [address] Feb, [facility] [place] [facility] [address] [id number] [place] [address] Feb, [facility] [place] [facility] [address] [id number] [place] [address] Feb, [facility] [place] [facility] [address] [id number] [place] [address] Feb, [facility] [place] [facility] [address] [id number] [place] [address] 19 Feb, 2012 [facility] [place] [facility] [address] [id number] [place] [address] 08 Feb, 2012 [facility] [place] [facility] [address] [id number] [place] [address] 18 Jan, 2012 [facility] [place] [facility] [address] [id number] [place] [address] 14 Jan, 2012 [facility] [place] [facility] [address] [id number] [place] [address] 10 Jan, 2012 [facility] [place] [facility] [address] [id number] [place] [address] 30 Dec, 2011 [facility] [place] [facility] [address] [id number] [place] [address] Dec, [facility] [place] [facility] [address] [id number] [place] [address] Dec, [facility] [place] [facility] [address] [id number] [place] [address] Nov, [facility] [place] [facility] [address] [id number] [place] [address] Oct, [facility] [place] [facility] [address] [id number] [place] [address] Oct, [facility] [place] [facility] [address] [id number] [address] Oct, [facility] [place] [facility] [address] [id number] [place] [address] Oct, [facility] [place] [facility] [address] [id number] [place] [address] 07 Oct, 2011 [facility] [place] [facility] [address] [id number] [place] [address] 24 Aug, 2011 [facility] [place] [facility] [address] [id number] [address] Aug, [facility] [address] [id number] [place] [address] Jul, [facility] [address] [facility] [id number] [place] [address] Jun, [facility] [address] [facility] [id number] [id number] Jun, [facility] [address] [id number] [place] [address] May, [facility] [place] [facility] [address] [id number] [place] [address] May, [facility] [address] [facility] [id number] [place] [address] May, [facility] [address] [id number] [place] [address] May, [facility] [place] [facility] [address] [id number] [place] [address] May, [facility] [address] [id number] [place] [address] Apr, [facility] [place] [facility] [address] [id number] [place] [address] Apr, [facility] [place] [facility] [address] [id number] [place] [address] Apr, [facility] [place] [facility] [address] [id number] [place] [address] Apr, [facility] [place] [facility] [address] [id number] [place] [address] Apr, [facility] [place] [facility] [address] [facility] [id number] [place] [address] Apr, [facility] [place] [facility] [address] [id number] [place] [address] 16 Apr, 2011 [facility] [place] [facility] [address] [facility] [id number] [place] [address] 16 Apr, 2011 IMMUNIZATIONS No Known Immunizations SOCIAL HISTORY Never [...]
--- OUTSIDE RECORDS SUMMARY | 2018-09-19 20:32 | XMS REPORT ---
Author Author VASHTI GARCIA [facility] Address [address] [place] [address] Care Team Providers Care Emergency Veterinary Technician Name Role Phone VASHTI GARCIA Unavailable PROBLEMS Type Condition ICD9-CM Code ICO40-YB Code Onset Dates Condition Status SNOMED Code Problem Hyperlipidemia LDL goal <70 E78.5 Active 70528227 Problem Arthritis M19.90 Active 1259997 Problem Long-term use of high-risk medication Z79.899 Active 512042832 Problem Insomnia G47.00 Active 233235270 Problem Hypertension I10 Active 23033455 Problem Fibromyalgia M79.7 Active 41738358 Problem Anxiety associated with depression F41.8 Active 053289107 Problem Type 2 diabetes mellitus with other specified complication, without long- term current use of insulin E11.69 Active 28853200 Problem Hypercholesterolemia E78.0 Active 50584957 Problem Chronic maxillary sinusitis J32.0 Active 24367281 Problem Adjustment disorder with anxiety F43.22 Active 16947283 Problem Chronic fatigue R53.82 Active 88202710 Problem Overweight (BMI 25.0-29.9) E66.3 Active 541694344 ALLERGIES No Information ENCOUNTERS Encounter Location Date Diagnosis [facility] [id number] [place] [address] Feb, Hypertension I10 ; Hyperlipidemia LDL goal <70 E78.5 and Type 2 diabetes mellitus with other specified complication, without long-term current use of insulin E11.69 [facility] [id number] [place] [address] Feb, Hypertension I10 [facility] [id number] [place] [address] Feb, Fibromyalgia M79.7 [facility] [address] [place] [address] Jan, Hypertension I10 ; Trochanteric bursitis, right hip M70.61 ; Trochanteric bursitis of left hip M70.62 ; Chronic fatigue R53.82 ; Type 2 diabetes mellitus without complication, without long-term current use of insulin E11.9 and Hypercholesterolemia E78.0 [facility] [id number] [place] [address] Dec, Fibromyalgia M79.7 [facility] [id number] [place] [address] Nov, Hyperlipidemia LDL goal <70 E78.5 [facility] [id number] [place] [address] Nov, Hyperlipidemia LDL goal <70 E78.5 [facility] [id number] [place] [address] Nov, Hypercholesterolemia E78.0 [facility] [id number] [place] [address] Oct, Hyperlipidemia LDL goal <70 E78.5 [facility] [id number] [place] [address] Oct, Type 2 diabetes mellitus without complication, without long-term current use of insulin E11.9 ; Hyperlipidemia LDL goal <70 E78.5 ; Hypertension I10 ; Fibromyalgia M79.7 and Chronic fatigue R53.82 [facility] [address] [place] [address] Oct, Type 2 diabetes mellitus without complication, without long-term current use of insulin E11.9 ; Hyperlipidemia LDL goal <70 E78.5 ; Hypertension I10 ; Fibromyalgia M79.7 ; Chronic fatigue R53.82 and Overweight (BMI 25.0-29.9) E66.3 [facility] [id number] [place] [address] Aug, Hypertension I10 and Dyshidrotic eczema L30.1 [facility] [id number] [place] [address] Jun, Hyperlipidemia LDL goal <70 E78.5 [facility] [id number] [place] [address] Jun, Arthritis M19.90 [facility] [id number] [place] [address] May, Hypertension I10 ; Anxiety associated with depression F41.8 ; Hyperlipidemia LDL goal <70 E78.5 and Chronic maxillary sinusitis J32.[address] [address] May, Acute non-recurrent maxillary sinusitis J01.00 and Sore throat J02.[address] [address] May, Dysthymia F34.[address] [address] Apr, Hypertension I10 [address] [address] Apr, Cough R05 ; Sore throat J02.9 and Bronchitis J40 [address] [address] Mar, Anxiety associated with depression F41.8 ; Adjustment disorder with anxiety F43.22 and Depression F32.9 [facility] [place] [id number] [place] [address] Mar, [facility] [id number] [place] [address] Mar, Type 2 diabetes mellitus without complication, without long-term current use of insulin E11.9 ; Hypertension I10 ; Hyperlipidemia LDL goal <70 E78.5 ; Arthritis M19.90 ; Long-term use of high-risk medication Z79.899 and Dysthymia F34.1 [place] [id number] [place] [address] Mar, [facility] [address] [place] [address] Mar, [facility] [id number] [place] [address] Feb, [facility] [id number] [place] [address] Feb, Acute right hip pain M25.551 and Hypertension I10 [facility] [id number] [place] [address] Feb, Diabetes E11.9 [facility] [id number] [place] [address] Jan, Hypertension I10 [facility] [id number] [place] [address] Jan, Hypertension I10 [facility] [id number] [place] [address] Dec, Dysuria R30.0 [facility] [id number] [place] [address] Dec, [facility] [id number] [place] [address] Dec, Fibromyalgia M79.7 [facility] [id number] [place] [address] Dec, Acute recurrent frontal sinusitis J01.11 and Hypertension I10 [facility] [address] [address] Dec, Hypertension I10 [facility] [id number] [place] [address] Dec, [facility] [id number] [place] [address] Dec, Hypertension I10 [facility] [address] [place] [address] Nov, [facility] [address] [address] Oct, Fibromyalgia M79.7 ; Hypertension I10 ; Depression F32.9 ; Hypercholesterolemia E78.0 ; Anxiety associated with depression F41.8 and Diabetes E11.9 [facility] [id number] [address] September, Essential hypertension I10 ; Diabetes E11.9 ; Anxiety associated with depression F41.8 and Hypercholesterolemia E78.0 [facility] [id number] [place] [address] Aug, [facility] [id number] [place] [address] Aug, Diabetes E11.9 [facility] [id number] [place] [address] Aug, [facility] [id number] [place] [address] Jul, Acute non-recurrent maxillary sinusitis J01.00 [place] [id number] [place] [address] Jul, Anxiety associated with depression F41.8 [facility] [id number] [place] [address] Jun, Anxiety associated with depression F41.8 and Hypercholesterolemia E78.0 [facility] [id number] [place] [address] May, Diabetes E11.9 ; Insomnia G47.00 ; Fibromyalgia M79.7 ; Hypercholesterolemia E78.0 ; Anxiety associated with depression F41.8 and Essential hypertension I10 [facility] [address] [place] [address] May, [facility] [id number] [place] [address] May, [facility] [address] [address] Mar, [facility] [address] [address] Mar, Hypertension I10 [facility] [address] [address] Feb, [facility] [address] [address] Feb, [facility] [address] [address] Feb, Anxiety associated with depression F41.8 ; Chest tightness R07.89 and Elevated blood pressure I10 [facility] [address] [address] Feb, Encounter for immunization Z23 ; Bronchitis J40 ; Diabetes E11.9 ; Hypertension I10 ; Insomnia G47.00 ; Hypercholesterolemia E78.0 ; Depression F32.9 and Fibromyalgia M79.7 [facility] [address] [address] Jan, Bronchitis J40 and Depression F32.9 [facility] [address] [address] Jan, Bronchitis J40 [facility] [address] [address] Dec, [facility] [address] [address] Dec, [facility] [address] [address] Nov, Acute non-recurrent frontal sinusitis J01.10 and Hypertension I10 [facility] [address] [address] Nov, [facility] [address] [address] Nov, Diabetes E11.9 ; Fibromyalgia M79.7 ; Hypertension I10 ; Insomnia G47.00 ; Depression F32.9 and Hypercholesterolemia E78.0 [facility] [address] [address] Oct, Hypercholesterolemia E78.0 [facility] [address] [address] September, [facility] [address] [address] Aug, Diabetes E11.9 ; Fibromyalgia M79.7 ; Hypertension I10 ; Insomnia G47.00 ; Depression F32.9 ; Shoulder pain M25.519 ; Hypercholesterolemia E78.0 and Pain in right shoulder M25.511 [facility] [address] [address] Jul, [facility] [address] [address] Jun, Hypercholesterolemia E78.0 [facility] [address] [address] Jun, [facility] [address] [address] May, [facility] [address] [address] May, Well woman exam Z01.419 [facility] [address] [address] May, Hypertension I10 ; Diabetes E11.9 ; Fibromyalgia M79.7 ; Insomnia G47.00 ; Depression F32.9 and Hypercholesterolemia E78.0 [facility] [address] [address] Apr, [facility] [address] [address] Apr, Fibromyalgia M79.7 ; Hypertension I10 ; Bronchitis J40 ; Insomnia G47.00 ; Depression F32.9 ; Shoulder pain M25.519 and Hypercholesterolemia E78.0 [facility] [address] [address] Mar, Hyperlipemia E78.5 [facility] [address] [address] Mar, Diabetes E11.9 ; Hypertension I10 ; Insomnia G47.00 ; Depression F32.9 and Shoulder pain M25.519 [facility] [address] [address] Mar, [facility] [address] [address] Feb, [facility] [address] [address] Feb, Diabetes E11.9 ; Encounter for immunization Z23 ; Fibromyalgia M79.7 ; Hypertension I10 ; Bronchitis J40 and Insomnia G47.00 [facility] [address] [address] Feb, Bronchitis J40 [facility] [address] [address] Jan, Bronchitis 490 [facility] [address] [address] Aug, [facility] [address] [address] Aug, [facility] [address] [address] Jul, [facility] [address] [address] Jul, [facility] [address] [address] Jul, [facility] [address] [address] Jul, [facility] [place] [facility] [address] [id number] [place] [address] Jun, [facility] [place] [facility] [address] [id number] [place] [address] Jun, [facility] [place] [facility] [address] [id number] [place] [address] May, [facility] [place] [facility] [address] [id number] [place] [address] May, [facility] [place] [facility] [address] [id number] [place] [address] Apr, [facility] [place] [facility] [address] [id number] [place] [address] Apr, [facility] [place] [facility] [address] [id number] [place] [address] Apr, [facility] [place] [facility] [address] [id number] [place] [address] Apr, [facility] [place] [facility] [address] [id number] [place] [address] Apr, [facility] [place] [facility] [address] [id number] [place] [address] Apr, [facility] [place] [facility] [address] [id number] [place] [address] Feb, [facility] [place] [facility] [address] [id number] [address] Feb, [facility] [place] [facility] [address] [id number] [place] [address] Jan, [facility] [place] [facility] [address] [id number] [place] [address] Jan, [facility] [place] [facility] [address] [id number] [address] Dec, [facility] [place] [facility] [address] [id number] [address] Dec, [facility] [address] [id number] [place] [address] September, [facility] [place] [facility] [address] [id number] [place] [address] September, [facility] [place] [facility] [address] [id number] [place] [address] September, [facility] [place] [facility] [address] [id number] [place] [address] September, [facility] [place] [facility] [address] [id number] [place] [address] September, [facility] [place] [facility] [address] [id number] [place] [address] September, [facility] [place] [facility] [address] [id number] [place] [address] Aug, [facility] [place] [facility] [address] [id number] [place] [address] Aug, [facility] [place] [facility] [address] [id number] [place] [address] Jul, [facility] [place] [facility] [address] [id number] [place] [address] Jul, [facility] [place] [facility] [address] [id number] [place] [address] May, [facility] [place] [facility] [address] [id number] [place] [address] May, [facility] [place] [facility] [address] [id number] [place] [address] May, [facility] [place] [facility] [address] [id number] [place] [address] May, [facility] [place] [facility] [address] [id number] [place] [address] May, [facility] [place] [facility] [address] [id number] [place] [address] May, [facility] [place] [facility] [address] [id number] [place] [address] Apr, [facility] [place] [facility] [address] [id number] [place] [address] Apr, [facility] [place] [facility] [address] [id number] [place] [address] Apr, [facility] [place] [facility] [address] [id number] [place] [address] Apr, [facility] [place] [facility] [address] [id number] [place] [address] Apr, [facility] [place] [facility] [address] [id number] [place] [address] Apr, [facility] [place] [facility] [address] [id number] [place] [address] Apr, [facility] [place] [facility] [address] [id number] [place] [address] Apr, [facility] [place] [facility] [address] [id number] [place] [address] Feb, [facility] [place] [facility] [address] [id number] [place] [address] 31 Feb, 2013 [facility] [place] [facility] [address] [id number] [place] [address] 15 Feb, 2013 [facility] [place] [facility] [address] [id number] [place] [address] 15 Feb, 2013 [facility] [place] [facility] [address] [id number] [place] [address] 10 Feb, 2013 [facility] [place] [facility] [address] [id number] [place] [address] 10 Feb, 2013 [facility] [place] [facility] [address] [id number] [place] [address] Feb, [facility] [address] [id number] [place] [address] Feb, [facility] [address] [id number] [place] [address] Nov, [facility] [address] [id number] [place] [address] Nov, [facility] [address] [id number] [place] [address] Oct, [facility] [address] [id number] [place] [address] Oct, [facility] [address] [id number] [place] [address] Oct, [facility] [address] [id number] [place] [address] September, [facility] [address] [id number] [place] [address] September, [facility] [address] [id number] [place] [address] September, [facility] [address] [id number] [place] [address] September, [facility] [address] [id number] [place] [address] September, [facility] [place] [facility] [address] [id number], [place] [address] September, [facility] [place] [facility] [address] [id number] [place] [address] September, [facility] [place] [facility] [address] [id number] [place] [address] September, [facility] [place] [facility] [address] [id number] [place] [address] September, [facility] [place] [facility] [address] [id number] [place] [address] September, [facility] [address] [id number] [place] [address] Aug, [facility] [place] [facility] [address] [id number] [place] [address] Jul, [facility] [address] [id number] [place] [address] Jun, [facility] [place] [facility] [address] [id number] [place] [address] Jun, [facility] [address] [id number] [place] [address] May, [facility] [place] [facility] [address] [id number] [place] [address] May, [facility] [address] [id number] [place] [address] Mar, [facility] [address] [id number] [place] [address] Mar, [facility] [place] [facility] [address] [id number] [place] [address] Mar, [facility] [address] [facility] [id number] [place] [address] Mar, [facility] [place] [facility] [address] [id number] [place] [address] Feb, [facility] [place] [facility] [address] [id number] [place] [address] Feb, [facility] [place] [facility] [address] [id number] [place] [address] Feb, [facility] [place] [facility] [address] [id number] [place] [address] Feb, [facility] [place] [facility] [address] [id number] [place] [address] Feb, [facility] [place] [facility] [address] [id number] [place] [address] 19 Feb, 2012 [facility] [place] [facility] [address] [id number] [place] [address] 08 Feb, 2012 [facility] [place] [facility] [address] [id number] [place] [address] 18 Jan, 2012 [facility] [place] [facility] [address] [id number] [place] [address] 14 Jan, 2012 [facility] [place] [facility] [address] [id number] [place] [address] 10 Jan, 2012 [facility] [place] [facility] [address] [id number] [place] [address] 30 Dec, 2011 [facility] [place] [facility] [address] [id number] [place] [address] Dec, [facility] [place] [facility] [address] [id number] [place] [address] Dec, [facility] [place] [facility] [address] [id number] [place] [address] Nov, [facility] [place] [facility] [address] [id number] [place] [address] Oct, [facility] [place] [facility] [address] [id number] [place] [address] Oct, [facility] [place] [facility] [address] [id number][place] [address] Oct, [facility] [place] [facility] [address] [id number] [place] [address] Oct, [facility] [place] [facility] [address] [id number] [place] [address] 07 Oct, 2011 [facility] [place] [facility] [address] [id number] [place] [address] 24 Aug, 2011 [facility] [place] [facility] [address] [id number][place] [address] Aug, [facility] [address] [id number] [place] [address] Jul, [facility] [address] [facility] [id number][place] [address] Jun, [facility] [address] [facility] [id number] [id number] Jun, [facility] [address] [id number][place] [address] May, [facility] [place] [facility] [address] [id number] [place] [address] May, [facility] [address] [facility] [id number][place] [address] May, [facility] [address] [id number][place] [address] May, [facility] [place] [facility] [address] [id number], [place] [address] May, [facility] [address] [id number], [place] [address] Apr, [facility] [place] [facility] [address] [id number] [place] [address] Apr, [facility] [place] [facility] [address] [id number], [place] [address] Apr, [facility] [place] [facility] [address] [id number], [place] [address] Apr, [facility] [place] [facility] [address] [id number] [place] [address] Apr, [facility] [place] [facility] [address] [facility] [id number] [place] [address] Apr, [facility] [place] [facility] [address] [id number], [place] [address] 16 Apr, 2011 [facility] [place] [facility] [address] [facility] [id number] [address] 16 Apr, 2011 IMMUNIZATIONS No Known Immunizations SOCIAL HISTORY Never Assessed REASON FOR VISIT Refill request PLAN OF CARE VITAL SIGNS MEDICATIONS Medication Instructions Dosage Frequency Start Date End Date Duration Status Losartan Potassium 100 mg Orally Once a day TAKE ONE TABLET BY MOUTH ONCE DAILY 24h 30 days Active RESULTS No Results PROCEDURES [...]
--- OUTSIDE RECORDS SUMMARY | 2018-09-19 20:33 | XMS REPORT ---
Author Author OBED REED Organization [facility] Address [address] [place] [address] Care Team Providers Care House Calls Nurse Practitioner Name Role Phone OBED REED Unavailable PROBLEMS Type Condition ICD9-CM Code NLM66-GV Code Onset Dates Condition Status SNOMED Code Problem Hyperlipidemia LDL goal <70 E78.5 Active 84092284 Problem Arthritis M19.90 Active 4530790 Problem Long-term use of high-risk medication Z79.899 Active 559964496 Problem Insomnia G47.00 Active 387141772 Problem Hypertension I10 Active 84299004 Problem Fibromyalgia M79.7 Active 49909427 Problem Anxiety associated with depression F41.8 Active 668160565 Problem Hypercholesterolemia E78.0 Active 17640839 Problem Chronic fatigue R53.82 Active 76253316 Problem Adjustment disorder with anxiety F43.22 Active 28231554 Problem Type 2 diabetes mellitus without complication, without long-term current use of insulin E11.9 Active 197243293 Problem Overweight (BMI 25.0-29.9) E66.3 Active 376572524 Problem Chronic maxillary sinusitis J32.0 Active 56617490 ALLERGIES Substance Reaction Event Type Date Status Tetanus Unknown Drug Allergy Jan, Active Trilipix throat tightness Drug Allergy Jan, Active Wellbutrin chest pain Drug Allergy Jan, Active Sulfamethoxazole-Trimethoprim Unknown Drug Allergy Jan, Active Penicillin V Potassium Unknown Drug Allergy Jan, Active Lopid throat tightness Drug Allergy Jan, Active Celebrex HEADACHE Drug Allergy Jan, Active Azithromycin Unknown Drug Allergy Jan, Active ENCOUNTERS Encounter Location Date Diagnosis [facility] [address] [facility] [id number] [address] Feb, [facility] [address] [facility] [id number] [address] Jan, Hypertension I10 ; Trochanteric bursitis, right hip M70.61 ; Trochanteric bursitis of left hip M70.62 ; Chronic fatigue R53.82 ; Type 2 diabetes mellitus without complication, without long-term current use of insulin E11.9 and Hypercholesterolemia E78.0 [place] [address] [place] [id number] [place] [address] Dec, Fibromyalgia M79.7 [place] [address] [place] [address] [id number] [place] [address] Nov, Hyperlipidemia LDL goal <70 E78.5 [place] [address] [address] Nov, Hyperlipidemia LDL goal <70 E78.5 [place] [address] [address] Nov, Hypercholesterolemia E78.0 [place] [address] [address] [id number] [place] [address] Oct, Hyperlipidemia LDL goal <70 E78.5 [place] [address] [address] [id number] [place] [address] Oct, Type 2 diabetes mellitus without complication, without long-term current use of insulin E11.9 ; Hyperlipidemia LDL goal <70 E78.5 ; Hypertension I10 ; Fibromyalgia M79.7 and Chronic fatigue R53.82 [place] [address] [id number] [place] [address] Oct, Type 2 diabetes mellitus without complication, without long-term current use of insulin E11.9 ; Hyperlipidemia LDL goal <70 E78.5 ; Hypertension I10 ; Fibromyalgia M79.7 ; Chronic fatigue R53.82 and Overweight (BMI 25.0-29.9) E66.3 [place] [address] [address] [id number] [place] [address] Aug, Hypertension I10 and Dyshidrotic eczema L30.1 [place] [address] [id number] [place] [address] Jun, Hyperlipidemia LDL goal <70 E78.5 [place] [id number] [place] [address] Jun, Arthritis M19.90 [place] [id number] May, Hypertension I10 ; Anxiety associated with depression F41.8 ; Hyperlipidemia LDL goal <70 E78.5 and Chronic maxillary sinusitis J32.[address] [address] May, Acute non-recurrent maxillary sinusitis J01.00 and Sore throat J02.[address] [address] May, Dysthymia F34.[address] [address] Apr, Hypertension I10 [address] [address] Apr, Cough R05 ; Sore throat J02.9 and Bronchitis J40 [address] [address] Mar, Anxiety associated with depression F41.8 ; Adjustment disorder with anxiety F43.22 and Depression F32.9 [place] [id number] [place] [address] Mar, [address] [address] Mar, Type 2 diabetes mellitus without complication, without long-term current use of insulin E11.9 ; Hypertension I10 ; Hyperlipidemia LDL goal <70 E78.5 ; Arthritis M19.90 ; Long-term use of high-risk medication Z79.899 and Dysthymia F34.[address] [address] Mar, [place] [address] Mar, [facility] [id number] [place] [address] Feb, [facility] [id number] [place] [address] Feb, Acute right hip pain M25.551 and Hypertension I10 [facility] [id number] [place] [address] Feb, Diabetes E11.9 [facility] [id number] [place] [address] Jan, Hypertension I10 [facility] [id number] [place] [address] Jan, Hypertension I10 [facility] [id number] [place] [address] Dec, Dysuria R30.0 [facility] [id number] [place] [address] Dec, [facility] [id number] [place] [address] Dec, Fibromyalgia M79.7 [facility] [id number] [place] [address] Dec, Acute recurrent frontal sinusitis J01.11 and Hypertension I10 [facility] [id number] [place] [address] Dec, Hypertension I10 [facility] [address] [address] Dec, [facility] [id number] [place] [address] Dec, Hypertension I10 [facility] [id number] [place] [address] Nov, [facility] [id number] [place] [address] Oct, Fibromyalgia M79.7 ; Hypertension I10 ; Depression F32.9 ; Hypercholesterolemia E78.0 ; Anxiety associated with depression F41.8 and Diabetes E11.9 [place] [id number] [place] [address] September, Essential hypertension I10 ; Diabetes E11.9 ; Anxiety associated with depression F41.8 and Hypercholesterolemia E78.0 [place] [id number] [place] [address] Aug, [place] [id number] [place] [address] Aug, Diabetes E11.9 [place] [id number] [place] [address] Aug, [place] [id number] [place] [address] Jul, Acute non-recurrent maxillary sinusitis J01.00 [place] [id number] [place] [address] Jul, Anxiety associated with depression F41.8 [place] [id number] [place] [address] Jun, Anxiety associated with depression F41.8 and Hypercholesterolemia E78.0 [place] [id number] [place] [address] May, Diabetes E11.9 ; Insomnia G47.00 ; Fibromyalgia M79.7 ; Hypercholesterolemia E78.0 ; Anxiety associated with depression F41.8 and Essential hypertension I10 [place] [id number] [place] [address] May, [place] [id number] [place] [address] May, [place] [id number] [place] [address] Mar, [facility] [id number] [place] [address] Mar, Hypertension I10 [place] [address] [address] Feb, [facility] [address] [address] Feb, [facility] [address] [address] Feb, Anxiety associated with depression F41.8 ; Chest tightness R07.89 and Elevated blood pressure I10 [address] [address] Feb, Encounter for immunization Z23 ; Bronchitis J40 ; Diabetes E11.9 ; Hypertension I10 ; Insomnia G47.00 ; Hypercholesterolemia E78.0 ; Depression F32.9 and Fibromyalgia M79.7 [place] [address] [address] Jan, Bronchitis J40 and Depression F32.9 [facility] [address] [address] Jan, Bronchitis J40 [place] [address] [address] Dec, [place] [address] [address] Dec, [place] [address] [address] Nov, Acute non-recurrent frontal sinusitis J01.10 and Hypertension I10 [place] [address] [address] Nov, [facility] [address] [address] Nov, Diabetes E11.9 ; Fibromyalgia M79.7 ; Hypertension I10 ; Insomnia G47.00 ; Depression F32.9 and Hypercholesterolemia E78.0 [facility] [address] [address] Oct, Hypercholesterolemia E78.0 [facility] [address] [address] September, [facility] [address] [address] Aug, Diabetes E11.9 ; Fibromyalgia M79.7 ; Hypertension I10 ; Insomnia G47.00 ; Depression F32.9 ; Shoulder pain M25.519 ; Hypercholesterolemia E78.0 and Pain in right shoulder M25.511 [place] [address] [address] Jul, [place] [address] [address] Jun, Hypercholesterolemia E78.0 [place] [address] [address] Jun, [place] [address] [address] May, [place] [address] [address] May, Well woman exam Z01.419 [place] [address] [address] May, Hypertension I10 ; Diabetes E11.9 ; Fibromyalgia M79.7 ; Insomnia G47.00 ; Depression F32.9 and Hypercholesterolemia E78.0 [place] [address] [address] Apr, [facility] [address] [address] Apr, Fibromyalgia M79.7 ; Hypertension I10 ; Bronchitis J40 ; Insomnia G47.00 ; Depression F32.9 ; Shoulder pain M25.519 and Hypercholesterolemia E78.0 [facility] [address] [id number] [place] [address] Mar, Hyperlipemia E78.5 [facility] [address] [address] Mar, Diabetes E11.9 ; Hypertension I10 ; Insomnia G47.00 ; Depression F32.9 and Shoulder pain M25.519 [facility] [address] [address] Mar, [facility] [address] [address] Feb, [facility] [address] [address] Feb, Diabetes E11.9 ; Encounter for immunization Z23 ; Fibromyalgia M79.7 ; Hypertension I10 ; Bronchitis J40 and Insomnia G47.00 [facility] [address] [address] Feb, Bronchitis J40 [facility] [address] [place] [id number] [place] [address] Jan, Bronchitis 490 [facility] [address] [place] [id number] [place] [address] Aug, [facility] [address] [place] [address] [id number] [place] [address] Aug, [facility] [address] [address] Jul, [facility] [address] [address] Jul, [facility] [address] [address] Jul, [facility] [address] [place] [id number] [place] [address] Jul, [facility] [address] [place] [address] Jun, [facility] [address] [id number] [place] [address] Jun, [facility] [place] [facility] [address] [id number] [place] [address] May, [facility] [place] [facility] [address] [id number] [place] [address] May, [facility] [place] [facility] [address] [id number] [place] [address] Apr, [facility] [place] [facility] [address] [id number] [place] [address] Apr, [facility] [place] [facility] [address] [id number] [place] [address] Apr, [facility] [place] [facility] [address] [id number] [place] [address] Apr, [facility] [place] [facility] [address] [id number] [place] [address] Apr, [facility] [place] [facility] [address] [id number] [place] [address] Apr, [facility] [place] [facility] [address] [id number] [place] [address] Feb, [facility] [place] [facility] [address] [id number] [place] [address] Feb, [facility] [place] [facility] [address] [id number] [place] [address] Jan, [facility] [place] [facility] [address] [id number] [place] [address] Jan, [facility] [place] [facility] [address] [id number] [place] [address] Dec, [facility] [place] [facility] [address] [id number] [place] [address] Dec, [facility] [place] [facility] [address] [id number] [place] [address] September, [facility] [place] [facility] [address] [id number] [place] [address] September, [facility] [place] [facility] [address] [id number] [place] [address] September, [facility] [place] [facility] [address] [id number] [place] [address] September, [facility] [place] [facility] [address] [id number] [place] [address] September, [facility] [place] [facility] [address] [id number] [place] [address] September, [facility] [place] [facility] [address] [id number] [place] [address] Aug, [facility] [place] [facility] [address] [id number] [place] [address] Aug, [facility] [place] [facility] [address] [id number] [place] [address] Jul, [facility] [place] [facility] [address] [id number] [place] [address] Jul, [facility] [place] [facility] [address] [id number] [place] [address] May, [facility] [place] [facility] [address] [id number] [place] [address] May, [facility] [place] [facility] [address] [id number] [place] [address] May, [facility] [place] [facility] [address] [id number] [place] [address] May, [facility] [place] [facility] [address] [id number] [place] [address] May, [facility] [place] [facility] [address] [id number] [place] [address] May, [facility] [address] [id number] [place] [address] Apr, [facility] [place] [facility] [address] [id number] [place] [address] Apr, [facility] [place] [facility] [address] [id number] [place] [address] Apr, [facility] [place] [facility] [address] [id number] [place] [address] Apr, [facility] [place] [facility] [address] [id number] [place] [address] Apr, [facility] [place] [facility] [address] [id number] [place] [address] Apr, [facility] [place] [facility] [address] [id number] [place] [address] Apr, [facility] [place] [facility] [address] [id number] [place] [address] Apr, [facility] [place] [facility] [address] [id number] [place] [address] Feb, [facility] [place] [facility] [address] [facility] [id number] [place] [address] 31 Feb, 2013 [facility] [place] [facility] [address] [id number] [place] [address] 15 Feb, 2013 [facility] [place] [facility] [address] [id number] [address] 15 Feb, 2013 [facility] [place] [facility] [address] [id number] [place] [address] 10 Feb, 2013 [facility] [place] [facility] [address] [id number] [place] [address] 10 Feb, 2013 [facility] [place] [facility] [address] [facility] [id number] [address] 02 Feb, 2013 [facility] [place] [facility] [address] [id number] [place] [address] Feb, [facility] [address] [id number] [place] [address] Nov, [facility] [address] [id number] [place] [address] Nov, [facility] [address] [id number] [place] [address] Oct, [facility] [address] [id number] [place] [address] Oct, [facility] [address] [id number] [place] [address] Oct, [facility] [address] [id number] [place] [address] September, [facility] [address] [id number] [place] [address] September, [facility] [address] [id number] [place] [address] September, [facility] [address] [id number] [place] [address] September, [facility] [address] [id number] [place] [address] September, [facility] [address] [id number] [place] [address] September, [facility] [address] [id number] [place] [address] September, [facility] [place] [facility] [address] [id number] [place] [address] September, [facility] [place] [facility] [address] [id number] [place] [address] September, [facility] [address] [id number] [place] [address] September, [facility] [place] [facility] [address] [id number] [place] [address] Aug, [facility] [place] [facility] [address] [id number] [place] [address] Jul, [facility] [place] [facility] [address] [id number] [place] [address] Jun, [facility] [place] [facility] [address] [id number] [place] [address] Jun, [facility] [place] [facility] [address] [id number] [place] [address] May, [facility] [place] [facility] [address] [id number] [place] [address] May, [facility] [place] [facility] [address] [id number] [place] [address] Mar, [facility] [place] [facility] [address] [id number] [place] [address] Mar, [facility] [place] [facility] [address] [id number] [place] [address] Mar, [facility] [place] [facility] [address] [id number] [place] [address] Mar, [facility] [place] [facility] [address] [id number], [place] [address] Feb, [facility] [place] [facility] [address] [id number], [place] [address] Feb, [facility] [place] [facility] [address] [id number] [place] [address] Feb, [facility] [place] [facility] [address] [id number] [place] [address] Feb, [facility] [place] [facility] [address] [id number] [place] [address] Feb, [facility] [place] [facility] [address] [id number] [place] [address] 19 Feb, 2012 [facility] [place] [facility] [address] [id number] [place] [address] 08 Feb, 2012 [facility] [place] [facility] [address] [id number] [place] [address] 18 Jan, 2012 [facility] [place] [facility] [address] [id number] [place] [address] 14 Jan, 2012 [facility] [place] [facility] [address] [id number] [place] [address] 10 Jan, 2012 [facility] [place] [facility] [id number] [place] [address], [place] [address] 30 Dec, 2011 [facility] [place] [facility] [address] [id number] [place] [address] Dec, [facility] [place] [facility] [address] [id number] [place] [address] Dec, [facility] [place] [facility] [address] [id number] [place] [address] Nov, [facility] [place] [facility] [address] [id number] [place] [address] Oct, [facility] [place] [facility] [address] [id number] [place] [address] Oct, [facility] [place] [facility] [address] [id number] [place] [address] Oct, [facility] [place] [facility] [address] [id number] [place] [address] Oct, [facility] [place] [facility] [address] [id number] [place] [address] 07 Oct, 2011 [facility] [place] [facility] [address] [id number] [place] [address] 24 Aug, 2011 [facility] [place] [facility] [address] [id number] [place] [address] Aug, [facility] [address] [id number] [place] [address] Jul, [facility] [address] [id number] [place] [address] Jun, [facility] [address] [id number] [place] [id number] Jun, [facility] [address] [id number] [place] [address] May, [facility] [address] [id number] [place] [address] May, [facility] [address] [id number] [place] [address] May, [facility] [address] [id number] [place] [address] May, [facility] [address] [id number] [place] [address] May, [facility] [address] [id number] [place] [address] Apr, [facility] [address] [id number] [place] [address] Apr, [facility] [address] [id number] [place] [address] Apr, [facility] [address] [id number] [address] Apr, [facility] [address] [id number] [place] [address] Apr, [facility] [address] [id number] [place] [address] Apr, [facility] [address] [id number], [place] [address] 16 Apr, 2011 [facility] [address] [id number], [place] [address] Apr, IMMUNIZATIONS No Known Immunizations SOCIAL HISTORY Never Assessed REASON FOR VISIT Hypertension- Debby Torres RN PLAN OF CARE Activity Details Follow Up 4 Weeks, BP check Reason:HTN w/ Tamara VITAL SIGNS Height 61 in 2018-01-20 Weight 145 lbs 2018-01-20 Temperature 98.0 degrees Fahrenheit 2018-01-20 Heart Rate 64 bpm 2018-01-20 Respiratory Rate 18 2018-01-20 BMI 27.39 kg/m2 2018-01-20 Blood pressure systolic 146 mmHg 2018-01-20 Blood pressure diastolic 100 mmHg 2018-01-20 MEDICATIONS Medication Instructions Dosage Frequency Start Date End Date Duration Status Triamcinolone Acetonide 0.1 % Externally Twice a day apply thin layer to affected fingertips 12h Aug, 14 days Active Ibuprofen 800 MG Orally 3 times a day 1 tablet with food or milk Three times a day Orally 30 day(s) 8h 30 days Active Clonidine HCl 0.2 MG TAKE ONE (1) TABLET BY MOUTH THREE (3) TIMES DAILY 30 Active Pravastatin Sodium 40 mg Orally Once a day 1 tablet 24h Mar, Active Atenolol 100MG Orally twice a day 1 tablet 12h Active Norvasc 5 mg Orally Once a day 1 tablet 24h Jan, 28 days Active Mobic 7.5 MG Orally Once a day 1 tablet 24h Jan, Feb, 14 days Active Losartan Potassium 100 MG TAKE ONE TABLET BY MOUTH ONCE DAILY Active MetFORMIN HCl ER 750 MG Orally Once a day 1 tablet with evening meal 24h Mar, Active RESULTS No Results PROCEDURES No Known [...]
--- OUTSIDE RECORDS SUMMARY | 2018-09-19 20:33 | XMS REPORT ---
Author Author OBED REED Organization [facility] Address [address] [place] [address] Care Team Providers Care Recorder [employer] Name Role Phone OBED REED Unavailable PROBLEMS Type Condition ICD9-CM Code VTB50-WH Code Onset Dates Condition Status SNOMED Code Problem Hyperlipidemia LDL goal <70 E78.5 Active 84701091 Problem Arthritis M19.90 Active 6277730 Problem Long-term use of high-risk medication Z79.899 Active 126099907 Problem Insomnia G47.00 Active 226866200 Problem Hypertension I10 Active 90224713 Problem Fibromyalgia M79.7 Active 19649622 Problem Anxiety associated with depression F41.8 Active 404394677 Problem Hypercholesterolemia E78.0 Active 24734992 Problem Chronic fatigue R53.82 Active 52557727 Problem Adjustment disorder with anxiety F43.22 Active 25941943 Problem Type 2 diabetes mellitus without complication, without long-term current use of insulin E11.9 Active 293540881 Problem Overweight (BMI 25.0-29.9) E66.3 Active 630909394 Problem Chronic maxillary sinusitis J32.0 Active 14531289 ALLERGIES No Information ENCOUNTERS Encounter Location Date Diagnosis [facility] [id number] [place] [address] Jan, Hypertension I10 ; Trochanteric bursitis, right hip M70.61 ; Trochanteric bursitis of left hip M70.62 ; Chronic fatigue R53.82 ; Type 2 diabetes mellitus without complication, without long-term current use of insulin E11.[address] [facility] [id number] [place] [address] Dec, Fibromyalgia M79.7 [facility] [id number] [address] Nov, Hyperlipidemia LDL goal <70 E78.5 [place] [id number] [place] [address] Nov, Hyperlipidemia LDL goal <70 E78.5 [place] [address] [address] Nov, Hypercholesterolemia E78.0 [place] [id number] [place] [address] Oct, Hyperlipidemia LDL goal <70 E78.5 [place] [address] [address] Oct, Type 2 diabetes mellitus without complication, without long-term current use of insulin E11.9 ; Hyperlipidemia LDL goal <70 E78.5 ; Hypertension I10 ; Fibromyalgia M79.7 and Chronic fatigue R53.[address] [address] Oct, Type 2 diabetes mellitus without complication, without long-term current use of insulin E11.9 ; Hyperlipidemia LDL goal <70 E78.5 ; Hypertension I10 ; Fibromyalgia M79.7 ; Chronic fatigue R53.82 and Overweight (BMI 25.0-29.9) E66.3 [place] [id number] [place] [address] Aug, Hypertension I10 and Dyshidrotic eczema L30.1 [place] [id number] [place] [address] Jun, Hyperlipidemia LDL goal <70 E78.5 [place] [id number] [place] [address] Jun, Arthritis M19.[address] [address] May, Hypertension I10 ; Anxiety associated with depression F41.8 ; Hyperlipidemia LDL goal <70 E78.5 and Chronic maxillary sinusitis J32.0 [place] [address] [address] May, Acute non-recurrent maxillary sinusitis J01.00 and Sore throat J02.[address] [address] May, Dysthymia F34.[address] [address] Apr, Hypertension I10 [address] [address] Apr, Cough R05 ; Sore throat J02.9 and Bronchitis J40 [address] [address] Mar, Anxiety associated with depression F41.8 ; Adjustment disorder with anxiety F43.22 and Depression F32.[address] [address] Mar, [address] [address] Mar, Type 2 diabetes mellitus without complication, without long-term current use of insulin E11.9 ; Hypertension I10 ; Hyperlipidemia LDL goal <70 E78.5 ; Arthritis M19.90 ; Long-term use of high-risk medication Z79.899 and Dysthymia F34.[address] [address] Mar, [address] [address] Mar, [address] [address] Feb, [address] [address] Feb, Acute right hip pain M25.551 and Hypertension I10 [address] [address] Feb, Diabetes E11.9 [facility] [address] [address] Jan, [address]pertension [address]10 [facility] [id number] [place] [address] Jan, Hypertension I10 [facility] [id number] [place] [address] Dec, Dysuria R30.0 [facility] [id number] [place] [address] Dec, [facility] [id number] [place] [address] Dec, Fibromyalgia M79.7 [facility] [id number] [place] [address] Dec, Acute recurrent frontal sinusitis J01.[address] [facility] [id number] [place] [address] Dec, Hypertension I10 [facility] [id number] [place] [address] Dec, [facility] [id number] [place] [address] Dec, Hypertension I10 [facility] [id number] [place] [address] Nov, [facility] [id number] [place] [address] Oct, Fibromyalgia M79.7 ; Hypertension I10 ; Depression F32.9 ; Hypercholesterolemia E78.0 ; Anxiety associated with depression F41.[address] [facility] [id number] [place] [address] September, Essential hypertension I10 ; Diabetes E11.9 ; Anxiety associated with depression F41.[address] [facility] [id number] [place] [address] Aug, [facility] [id number] [place] [address] Aug, Diabetes E11.9 [facility] [id number] [place] [address] Aug, [facility] [address] [address] Jul, Acute non-recurrent maxillary sinusitis J01.00 [facility] [address] [address] Jul, Anxiety associated with depression F41.8 [facility] [address] [address] Jun, Anxiety associated with depression F41.[address] [facility] [address] [address] May, Diabetes E11.9 ; Insomnia G47.00 ; Fibromyalgia M79.7 ; Hypercholesterolemia E78.0 ; Anxiety associated with depression F41.8 and Essential hypertension I10 [facility] [id number] [place] [address] May, [facility] [id number] [place] [address] May, [facility] [id number] [place] [address] Mar, [facility] [id number] [place] [address] Mar, Hypertension I10 [facility] [id number] [place] [address] Feb, [facility] [id number] [place] [address] Feb, [facility] [address] [address] Feb, Anxiety associated with depression F41.8 ; Chest tightness R07.89 and Elevated blood pressure I10 [place] [address] [address] 11 Feb, 2016 Encounter for immunization Z23 ; Bronchitis J40 ; Diabetes E11.9 ; Hypertension I10 ; Insomnia G47.00 ; Hypercholesterolemia E78.0 ; Depression F32.9 and Fibromyalgia M79.7 [place] [address] [address] Jan, Bronchitis J40 and Depression F32.9 [facility] [address] [address] Jan, Bronchitis J40 [place] [address] [address] Dec, [place] [address] [address] Dec, [place] [address] [address] Nov, Acute non-recurrent frontal sinusitis J01.10 and Hypertension I10 [place] [address] [address] Nov, [place] [address] [address] Nov, Diabetes E11.9 ; Fibromyalgia M79.7 ; Hypertension I10 ; Insomnia G47.00 ; Depression F32.9 and Hypercholesterolemia E78.0 [place] [address] [address] Oct, Hypercholesterolemia E78.0 [place] [address] [address] September, [place] [address] [address] Aug, Diabetes E11.9 ; Fibromyalgia M79.7 ; Hypertension I10 ; Insomnia G47.00 ; Depression F32.9 ; Shoulder pain M25.519 ; Hypercholesterolemia E78.0 and Pain in right shoulder M25.511 [facility] [address] [address] Jul, [facility] [address] [address] Jun, Hypercholesterolemia E78.0 [facility] [address] [address] Jun, [facility] [address] [address] May, [place] [address] [address] May, Well woman exam Z01.419 [place] [address] [address] May, Hypertension I10 ; Diabetes E11.9 ; Fibromyalgia M79.7 ; Insomnia G47.00 ; Depression F32.9 and Hypercholesterolemia E78.0 [place] [address] [address] Apr, [place] [address] [address] Apr, Fibromyalgia M79.7 ; Hypertension I10 ; Bronchitis J40 ; Insomnia G47.00 ; Depression F32.9 ; Shoulder pain M25.519 and Hypercholesterolemia E78.0 [place] [address] [address] Mar, Hyperlipemia E78.5 [place] [address] [address] Mar, Diabetes E11.9 ; Hypertension I10 ; Insomnia G47.00 ; Depression F32.9 and Shoulder pain M25.519 [place] [address] [address] Mar, [facility] [address] [address] Feb, [facility] [address] [address] Feb, Diabetes E11.9 ; Encounter for immunization Z23 ; Fibromyalgia M79.7 ; Hypertension I10 ; Bronchitis J40 [address]47[address]00 [facility] [address] [address] Feb, Bronchitis J40 [facility] [address] [address] Jan, Bronchitis 490 [facility] [address] [address] Aug, [facility] [address] [address] Aug, [facility] [address] [address] Jul, [facility] [address] [address] Jul, [facility] [id number] [place] [address] Jul, [facility] [id number] [place] [address] Jul, [facility] [address] [address] Jun, [facility] [id number] [place] [address] Jun, [facility] [address] [address] May, [facility] [id number] [place] [address] May, [facility] [place] [facility] [address] [id number] [place] [address] Apr, [facility] [place] [facility] [address] [id number] [place] [address] Apr, [facility] [place] [facility] [address] [id number] [place] [address] Apr, [facility] [place] [facility] [address] [id number] [place] [address] Apr, [facility] [place] [facility] [address] [id number] [place] [address] Apr, [facility] [place] [facility] [address] [id number] [place] [address] Apr, [facility] [place] [facility] [address] [id number] [place] [address] Feb, [facility] [place] [facility] [address] [id number] [place] [address] Feb, [facility] [place] [facility] [address] [id number] [place] [address] Jan, [facility] [place] [facility] [address] [id number] [place] [address] Jan, [facility] [place] [facility] [address] [id number] [place] [address] Dec, [facility] [place] [facility] [address] [id number] [place] [address] Dec, [facility] [place] [facility] [address] [id number] [place] [address] September, [facility] [place] [facility] [address] [id number] [place] [address] September, [facility] [place] [facility] [address] [id number] [place] [address] September, [facility] [place] [facility] [address] [id number] [place] [address] September, [facility] [place] [facility] [address] [id number] [place] [address] September, [facility] [place] [facility] [address] [id number] [place] [address] September, [facility] [place] [facility] [address] [id number] [place] [address] Aug, [facility] [place] [facility] [address] [id number] [place] [address] Aug, [facility] [place] [facility] [address] [id number] [place] [address] Jul, [facility] [place] [facility] [address] [id number] [place] [address] Jul, [facility] [place] [facility] [address] [id number] [place] [address] May, [facility] [place] [facility] [address] [id number] [place] [address] May, [facility] [place] [facility] [address] [id number] [place] [address] May, [facility] [place] [facility] [address] [id number] [place] [address] May, [facility] [place] [facility] [address] [id number] [place] [address] May, [facility] [place] [facility] [address] [id number] [address] May, [facility] [place] [facility] [address] [id number] [place] [address] Apr, [facility] [place] [facility] [address] [id number] [place] [address] Apr, [facility] [place] [facility] [address] [id number] [place] [address] Apr, [facility] [place] [facility] [address] [id number] [place] [address] 19 Apr, 2013 [facility] [place] [facility] [address] [id number] [place] [address] 16 Apr, 2013 [facility] [place] [facility] [address] [id number] [place] [address] 16 Apr, 2013 [facility] [place] [facility] [address] [id number] [place] [address] Apr, [facility] [place] [facility] [address] [id number] [place] [address] Apr, [facility] [place] [facility] [address] [id number] [place] [address] Feb, [facility] [place] [facility] [address] [id number] [place] [address] Feb, [facility] [place] [facility] [address] [id number] [place] [address] 15 Feb, 2013 [facility] [place] [facility] [address] [id number] [place] [address] 15 Feb, 2013 [facility] [place] [facility] [address] [id number] [place] [address] Feb, [facility] [place] [facility] [address] [id number] [place] [address] Feb, [facility] [place] [facility] [address] [id number] [place] [address] Feb, [facility] [place] [facility] [address] [id number] [place] [address] Feb, [facility] [place] [facility] [address] [id number] [place] [address] Nov, [facility] [place] [facility] [address] [id number] [place] [address] Nov, [facility] [place] [facility] [address] [id number] [place] [address] Oct, [facility] [place] [facility] [address] [id number] [place] [address] Oct, [facility] [address] [id number] [place] [address] Oct, [facility] [address] [id number] [place] [address] September, [facility] [address] [id number] [place] [address] September, [facility] [address] [id number] [place] [address] September, [facility] [address] [id number] [place] [address] September, [facility] [address] [id number] [place] [address] September, [facility] [address] [id number] [place] [address] September, [facility] [address] [id number] [place] [address] September, [facility] [address] [id number] [place] [address] September, [facility] [address] [id number] [place] [address] September, [facility] [address] [id number] [place] [address] September, [facility] [address] [id number] [place] [address] Aug, [facility] [place] [facility] [address] [id number] [place] [address] Jul, [facility] [address] [id number] [place] [address] Jun, [facility] [address] [id number] [place] [address] Jun, [facility] [place] [facility] [address] [id number] [place] [address] May, [facility] [place] [facility] [address] [id number] [place] [address] May, [facility] [place] [facility] [address] [id number] [place] [address] Mar, [facility] [place] [facility] [address] [id number] [place] [address] Mar, [facility] [place] [facility] [address] [id number] [place] [address] Mar, [facility] [place] [facility] [address] [id number] [place] [address] Mar, [facility] [place] [facility] [address] [id number] [place] [address] Feb, [facility] [place] [facility] [address] [id number] [place] [address] Feb, [facility] [place] [facility] [address] [id number] [place] [address] Feb, [facility] [place] [facility] [address] [id number] [place] [address] Feb, [facility] [place] [facility] [address] [id number] [address] Feb, [facility] [place] [facility] [address] [id number] [address] Feb, [facility] [place] [facility] [address] [id number] [place] [address] Feb, [facility] [place] [facility] [address] [id number] [address] 18 Jan, 2012 [facility] [place] [facility] [address] [id number] [place] [address] 14 Jan, 2012 [facility] [place] [facility] [address] [id number] [place] [address] Jan, [facility] [address] [id number] [place] [address] Dec, [facility] [address] [id number] [place] [address] Dec, [facility] [address] [id number] [place] [address] Dec, [facility] [address] [id number] [place] [address] Nov, [facility] [address] [id number] [place] [address] Oct, [facility] [address] [id number] [place] [address] Oct, [facility] [address] [id number] [place] [address] Oct, [facility] [address] [id number] [place] [address] Oct, [facility] [address] [id number] [place] [address] Oct, [facility] [address] [id number] [place] [address] Aug, [facility] [address] [id number] [place] [address] Aug, [facility] [address] [id number] [address] Jul, [facility] [address] [facility] [id number] [place] [address] Jun, [facility] [address] [id number] [place] [id number] Jun, [facility] [address] [id number] [address] May, [facility] [id number] [address] May, [facility] [id number] [address] May, [facility] [address] [id number] [address] May, [facility] [id number] [address] May, [facility] [address] [id number] [address] Apr, [facility] [id number] [address] Apr, [facility] [id number] [address] Apr, [facility] [id number] [address] Apr, [facility] [id number] [address] Apr, [facility] [id number] [address] Apr, [facility] [id number] [address] Apr, [facility] [id number] [address] Apr, IMMUNIZATIONS No Known Immunizations SOCIAL HISTORY [...]
--- OUTSIDE RECORDS SUMMARY | 2018-09-19 20:34 | XMS REPORT ---
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 Name Role Phone OBED REED Unavailable PROBLEMS Type Condition ICD9-CM Code JMK04-[id number] Code Onset Dates Condition Status SNOMED Code Problem Hyperlipidemia LDL goal <70 E78.5 Active 71754697 Problem Arthritis M19.90 Active 6154744 Problem Long-term use of high-risk medication Z79.899 Active 796074806 Problem Insomnia G47.00 Active 689006018 Problem Hypertension I10 Active 75858786 Problem Fibromyalgia M79.7 Active 87758780 Problem Anxiety associated with depression F41.8 Active 248440950 Problem Hypercholesterolemia E78.0 Active 17413098 Problem Chronic fatigue R53.82 Active 68510657 Problem Adjustment disorder with anxiety F43.22 Active 53657974 Problem Type 2 diabetes mellitus without complication, without long-term current use of insulin E11.9 Active 827366760 Problem Overweight (BMI 25.0-29.9) E66.3 Active 481516779 Problem Chronic maxillary sinusitis J32.0 Active 47146121 ALLERGIES No Information ENCOUNTERS Encounter Location Date Diagnosis [facility] [id number] [place] [address] Jan, [facility] [id number] [place] [address] Dec, Fibromyalgia M79.7 [facility] [id number] [place] [address] Nov, Hyperlipidemia LDL goal <70 E78.5 [facility] [id number] [place] [address] Nov, Hyperlipidemia LDL goal <70 E78.5 [facility] [id number] [place] [address] Nov, Hypercholesterolemia E78.0 [facility] [id number] [place] [address] Oct, Hyperlipidemia LDL goal <70 E78.5 [facility] [id number] [place] [address] 18 Oct, 2017 Type 2 diabetes mellitus without complication, without long-term current use of insulin E11.9 ; Hyperlipidemia LDL goal <70 E78.5 ; Hypertension I10 ; Fibromyalgia M79.7 and Chronic fatigue R53.82 [place] [facility] [address] [address] 15 Oct, 2017 Type 2 diabetes mellitus without complication, without long-term current use of insulin E11.9 ; Hyperlipidemia LDL goal <70 E78.5 ; Hypertension I10 ; Fibromyalgia M79.7 ; Chronic fatigue R53.82 and Overweight (BMI 25.0-29.9) E66.3 [place] [address] [address] Aug, Hypertension I10 and Dyshidrotic eczema L30.[address] [address] 14 Jun, 2017 Hyperlipidemia LDL goal <70 E78.5 [facility] [id number] [place] [address] Jun, Arthritis M19.[address] [address] May, Hypertension I10 ; Anxiety associated with depression F41.8 ; Hyperlipidemia LDL goal <70 E78.5 and Chronic maxillary sinusitis J32.[address] [address] May, Acute non-recurrent maxillary sinusitis J01.00 and Sore throat J02.[address] [address] May, Dysthymia F34.1 [facility] [id number] [place] [address] Apr, Hypertension I10 [place] [address] [address] Apr, Cough R05 ; Sore throat J02.9 and Bronchitis J40 [place] [address] [address] Mar, Anxiety associated with depression F41.8 ; Adjustment disorder with anxiety F43.22 and Depression F32.9 [place] [address] [address] Mar, [place] [facility] [address] [address] Mar, Type 2 diabetes mellitus without complication, without long-term current use of insulin E11.9 ; Hypertension I10 ; Hyperlipidemia LDL goal <70 E78.5 ; Arthritis M19.90 ; Long-term use of high-risk medication Z79.899 and Dysthymia F34.1 [place] [address] [address] Mar, [place] [address] [address] Mar, [place] [address] [address] Feb, [place] [facility] [address] [address] Feb, Acute right hip pain M25.551 and Hypertension I10 [place] [address] [address] Feb, Diabetes E11.9 [place] [address] [address] Jan, Hypertension I10 [place] [address] [address] Jan, Hypertension I10 [facility] [address] [address] Dec, Dysuria R30.0 [facility] [address] [address] Dec, [facility] [id number] [place] [address] Dec, Fibromyalgia M79.7 [facility] [id number] [place] [address] Dec, Acute recurrent frontal sinusitis J01.11 and Hypertension I10 [facility] [id number] [place] [address] Dec, Hypertension I10 [facility] [id number] [place] [address] Dec, [facility] [id number] [place] [address] Dec, Hypertension I10 [facility] [id number] [place] [address] Nov, [facility] [id number] [place] [address] Oct, Fibromyalgia M79.7 ; Hypertension I10 ; Depression F32.9 ; Hypercholesterolemia E78.0 ; Anxiety associated with depression F41.8 and Diabetes E11.9 [facility] [address] [address] September, Essential hypertension I10 ; Diabetes E11.9 ; Anxiety associated with depression F41.8 and Hypercholesterolemia E78.0 [facility] [address] [address] Aug, [facility] [id number] [place] [address] Aug, Diabetes E11.9 [facility] [id number] [place] [address] 10 Aug, 2016 [facility] [id number] [place] [address] Jul, Acute non-recurrent maxillary sinusitis J01.00 [facility] [id number] [place] [address] Jul, Anxiety associated with depression F41.8 [place] [id number] [place] [address] Jun, Anxiety associated with depression F41.8 and Hypercholesterolemia E78.0 [place] [id number] [place] [address] May, Diabetes E11.9 ; Insomnia G47.00 ; Fibromyalgia M79.7 ; Hypercholesterolemia E78.0 ; Anxiety associated with depression F41.8 and Essential hypertension I10 [place] [id number] [place] [address] May, [facility] [id number] [place] [address] May, [place] [id number] [place] [address] Mar, [facility] [id number] [place] [address] Mar, Hypertension I10 [facility] [id number] [place] [address] Feb, [facility] [id number] [place] [address] Feb, [facility] [id number] [place] [address] Feb, Anxiety associated with depression F41.8 ; Chest tightness R07.89 and Elevated blood pressure I10 [facility] [id number] [place] [address] Feb, Encounter for immunization Z23 ; Bronchitis J40 ; Diabetes E11.9 ; Hypertension I10 ; Insomnia G47.00 ; Hypercholesterolemia E78.0 ; Depression F32.9 and Fibromyalgia M79.7 [facility] [address] [address] Jan, Bronchitis J40 and Depression F32.9 [facility] [address] [address] Jan, Bronchitis J40 [facility] [address] [address] Dec, [place] [address] [address] Dec, [place] [address] [address] Nov, Acute non-recurrent frontal sinusitis J01.10 and Hypertension I10 [place] [address] [address] Nov, [place] [address] [address] Nov, Diabetes E11.9 ; Fibromyalgia M79.7 ; Hypertension I10 ; Insomnia G47.00 ; Depression F32.9 and Hypercholesterolemia E78.0 [place] [address] [address] Oct, Hypercholesterolemia E78.0 [facility] [address] [address] September, [place] [address] [address] Aug, Diabetes E11.9 ; Fibromyalgia M79.7 ; Hypertension I10 ; Insomnia G47.00 ; Depression F32.9 ; Shoulder pain M25.519 ; Hypercholesterolemia E78.0 and Pain in right shoulder M25.511 [place] [address] [address] Jul, [facility] [id number] [place] [address] Jun, Hypercholesterolemia E78.0 [facility] [id number] [place] [address] Jun, [facility] [id number] [place] [address] May, [facility] [address] [address] May, Well woman exam Z01.419 [place] [address] [address] May, Hypertension I10 ; Diabetes E11.9 ; Fibromyalgia M79.7 ; Insomnia G47.00 ; Depression F32.9 and Hypercholesterolemia E78.0 [facility] [address] [address] Apr, [facility] [id number] [place] [address] Apr, Fibromyalgia M79.7 ; Hypertension I10 ; Bronchitis J40 ; Insomnia G47.00 ; Depression F32.9 ; Shoulder pain M25.519 and Hypercholesterolemia E78.0 [facility] [id number] [place] [address] Mar, Hyperlipemia E78.5 [facility] [id number] [place] [address] Mar, Diabetes E11.9 ; Hypertension I10 ; Insomnia G47.00 ; Depression F32.9 and Shoulder pain M25.519 [facility] [address] [address] Mar, [facility] [id number] [place] [address] Feb, [facility] [address] [address] Feb, Diabetes E11.9 ; Encounter for immunization Z23 ; Fibromyalgia M79.7 ; Hypertension I10 ; Bronchitis J40 and Insomnia G47.00 [facility] [id number] [place] [address] Feb, Bronchitis J40 [facility] [id number] [place] [address] 28 Jan, 2015 Bronchitis 490 [facility] [address] [address] Aug, [facility] [address] [address] Aug, [facility] [address] [address] Jul, [facility] [address] [address] Jul, [facility] [id number] [place] [address] Jul, [facility] [id number] [place] [address] Jul, [facility] [id number] [place] [address] Jun, [facility] [id number] [place] [address] Jun, [facility] [id number] [place] [address] May, [facility] [id number] [place] [address] May, [facility] [id number] [place] [address] Apr, [facility] [id number] [place] [address] Apr, [facility] [place] [facility] [address] [id number] [place] [address] Apr, [facility] [place] [facility] [address] [id number] [place] [address] Apr, [facility] [place] [facility] [address] [id number] [place] [address] Apr, [facility] [place] [facility] [address] [id number] [place] [address] Apr, [facility] [place] [facility] [address] [id number] [place] [address] Feb, [facility] [place] [facility] [address] [id number] [place] [address] Feb, [facility] [place] [facility] [address] [id number] [place] [address] Jan, [facility] [place] [facility] [address] [id number] [place] [address] Jan, [facility] [place] [facility] [address] [id number] [place] [address] Dec, [facility] [place] [facility] [address] [id number] [place] [address] Dec, [facility] [place] [facility] [address] [id number] [place] [address] September, [facility] [place] [facility] [address] [id number] [place] [address] September, [facility] [place] [facility] [address] [id number] [place] [address] September, [facility] [place] [facility] [address] [id number] [place] [address] September, [facility] [place] [facility] [address] [id number] [place] [address] September, [facility] [place] [facility] [address] [id number] [place] [address] September, [facility] [place] [facility] [address] [id number] [place] [address] Aug, [facility] [place] [facility] [address] [id number] [place] [address] Aug, [facility] [place] [facility] [address] [id number] [place] [address] Jul, [facility] [place] [facility] [address] [id number] [place] [address] Jul, [facility] [place] [facility] [address] [id number] [place] [address] May, [facility] [place] [facility] [address] [id number] [place] [address] May, [facility] [place] [facility] [address] [id number] [place] [address] May, [facility] [place] [facility] [address] [id number] [place] [address] May, [facility] [place] [facility] [address] [id number] [place] [address] May, [facility] [place] [facility] [address] [id number] [place] [address] May, [facility] [place] [facility] [address] [id number] [address] Apr, [facility] [place] [facility] [address] [id number], [place] [address] Apr, [facility] [place] [facility] [address] [id number] [place] [address] Apr, [facility] [place] [facility] [address] [id number] [place] [address] Apr, [facility] [place] [facility] [address] [id number] [place] [address] 16 Apr, 2013 [facility] [place] [facility] [address] [id number] [place] [address] 16 Apr, 2013 [facility] [address] [id number] [place] [address] Apr, [facility] [place] [facility] [address] [id number] [place] [address] Apr, [facility] [place] [facility] [address] [id number] [place] [address] Feb, [facility] [place] [facility] [address] [id number] [place] [address] Feb, [facility] [place] [facility] [address] [id number] [place] [address] Feb, [facility] [place] [facility] [address] [id number] [place] [address] Feb, [facility] [place] [facility] [address] [id number] [place] [address] Feb, [facility] [place] [facility] [address] [id number] [place] [address] Feb, [facility] [place] [facility] [address] [id number] [place] [address] Feb, [facility] [place] [facility] [address] [id number] [place] [address] Feb, [facility] [place] [facility] [address] [id number] [place] [address] Nov, [facility] [place] [facility] [address] [id number] [place] [address] Nov, [facility] [place] [facility] [address] [id number] [place] [address] Oct, [facility] [place] [facility] [address] [id number] [place] [address] Oct, [facility] [place] [facility] [address] [id number] [place] [address] Oct, [facility] [address] [id number] [place] [address] September, [facility] [address] [id number] [place] [address] September, [facility] [address] [id number] [place] [address] September, [facility] [address] [id number] [place] [address] September, [facility] [address] [id number] [place] [address] September, [facility] [address] [id number] [place] [address] September, [facility] [address] [id number] [place] [address] September, [facility] [address] [id number] [place] [address] September, [facility] [address] [id number] [place] [address] September, [facility] [address] [id number] [place] [address] September, [facility] [address] [id number] [place] [address] Aug, [facility] [address] [id number], [place] [address] Jul, [facility] [place] [facility] [address] [id number] [place] [address] Jun, [facility] [place] [facility] [address] [id number] [place] [address] Jun, [facility] [place] [facility] [address] [id number] [place] [address] May, [facility] [place] [facility] [address] [id number], [place] [address] May, [facility] [place] [facility] [address] [id number] [place] [address] Mar, [facility] [place] [facility] [address] [facility] [id number], [place] [address] Mar, [facility] [place] [facility] [address] [facility] [id number] [place] [address] Mar, [facility] [place] [facility] [address] [id number] [place] [address] Mar, [facility] [place] [facility] [address] [facility] [id number] [place] [address], [place] [address] Feb, [facility] [place] [facility] [address] [facility] [id number] [place] [address] Feb, [facility] [place] [facility] [id number] [place] [address] Feb, [facility] [place] [facility] [address] [facility] [id number] [place] [address] Feb, [facility] [place] [facility] [id number] [address] Feb, [facility] [place] [facility] [id number] [address] Feb, [facility] [place] [facility] [address] [facility] [id number], [place] [address] Feb, [facility] [place] [facility] [address] [facility] [id number], [place] [address] 18 Jan, 2012 [facility] [place] [facility] [address] [id number] [place] [address] 14 Jan, 2012 [facility] [place] [facility] [address] [facility] [id number], [place] [address] 10 Jan, 2012 [facility] [place] [facility] [id number] [address] 30 Dec, 2011 [facility] [place] [facility] [address] [id number] [place] [address] Dec, [facility] [address] [id number] [place] [address] Dec, [facility] [place] [facility] [address] [id number] [place] [address] Nov, [facility] [address] [id number] [place] [address] Oct, [facility] [place] [facility] [address] [id number] [place] [address] Oct, [facility] [place] [facility] [address] [id number] [place] [address] Oct, [facility] [address] [id number] [place] [address] Oct, [facility] [address] [id number] [place] [address] Oct, [facility] [address] [id number] [place] [address] Aug, [facility] [address] [id number] [place] [address] Aug, [facility] [address] [id number] [place] [address] Jul, [facility] [address] [id number] [place] [address] Jun, [facility] [address] [id number] [id number] Jun, [facility] [place] [facility] [address] [id number] [place] [address] May, [facility] [place] [facility] [address] [id number] [place] [address] May, [facility] [address] [id number] [place] [address] May, [facility] [address] [facility] [id number] [address] May, [facility] [address] [facility] [id number], [place] [address] May, [facility] [address] [facility] [id number], [place] [address] Apr, [facility] [address] [facility] [id number], [place] [address] Apr, [facility] [address] [facility] [id number], [place] [address] Apr, [facility] [address] [facility] [id number], [place] [address] Apr, [facility] [id number] [address] Apr, [facility] [id number] [address] Apr, [facility] [address] [id number] [address] Apr, [facility] [address] [id number] [address] Apr, IMMUNIZATIONS No Known Immunizations SOCIAL HISTORY Never Assessed REASON FOR VISIT PLAN OF CARE VITAL SIGNS MEDICATIONS Medication Instructions Dosage Frequency Start Date End Date Duration Status Pravastatin Sodium 40 mg Orally Once a day 1 tablet 24h Mar, Active RESULTS No Results PROCEDURES [...]
--- OUTSIDE RECORDS SUMMARY | 2018-09-19 20:34 | XMS REPORT ---
Author Author DEREK OBED Organization [facility] [place] Address [address] [place] [address] Care Team Providers Care Workers' Compensation Hearings Officer Name Role Phone OBED REED Unavailable PROBLEMS Type Condition ICD9-CM Code UVF31-JU Code Onset Dates Condition Status SNOMED Code Problem Hyperlipidemia LDL goal <70 E78.5 Active 30859463 Problem Arthritis M19.90 Active 5645784 Problem Long-term use of high-risk medication Z79.899 Active 851282311 Problem Insomnia G47.00 Active 198557425 Problem Hypertension I10 Active 62138769 Problem Fibromyalgia M79.7 Active 86429214 Problem Anxiety associated with depression F41.8 Active 183584136 Problem Hypercholesterolemia E78.0 Active 28073206 Problem Chronic fatigue R53.82 Active 08784935 Problem Adjustment disorder with anxiety F43.22 Active 90258015 Problem Type 2 diabetes mellitus without complication, without long-term current use of insulin E11.9 Active 145182959 Problem Overweight (BMI 25.0-29.9) E66.3 Active 380065126 Problem Chronic maxillary sinusitis J32.0 Active 39932303 ALLERGIES No Information ENCOUNTERS Encounter Location Date Diagnosis [facility] [place] [id number] [place] [address] Jan, [facility] [place] [id number] [place] [address] Dec, Fibromyalgia M79.7 [facility] [place] [id number] [place] [address] Nov, Hyperlipidemia LDL goal <70 E78.5 [facility] [place] [id number] [place] [address] Nov, Hyperlipidemia LDL goal <70 E78.5 [facility] [place] [id number] [place] [address] Nov, Hypercholesterolemia E78.0 [place] [id number] [place] [address] Oct, Hyperlipidemia LDL goal <70 E78.5 [place] [id number] [place] [address] 18 Oct, 2017 Type 2 diabetes mellitus without complication, without long-term current use of insulin E11.9 ; Hyperlipidemia LDL goal <70 E78.5 ; Hypertension I10 ; Fibromyalgia M79.7 and Chronic fatigue R53.82 [place] [address] [address] 15 Oct, 2017 Type 2 diabetes mellitus without complication, without long-term current use of insulin E11.9 ; Hyperlipidemia LDL goal <70 E78.5 ; Hypertension I10 ; Fibromyalgia M79.7 ; Chronic fatigue R53.82 and Overweight (BMI 25.0-29.9) E66.3 [place] [address] [address] Aug, Hypertension I10 and Dyshidrotic eczema L30.[address] [address] 14 Jun, 2017 Hyperlipidemia LDL goal <70 E78.5 [place] [id number] [place] [address] Jun, Arthritis M19.[address] [address] May, Hypertension I10 ; Anxiety associated with depression F41.8 ; Hyperlipidemia LDL goal <70 E78.5 and Chronic maxillary sinusitis J32.[address] [address] May, Acute non-recurrent maxillary sinusitis J01.00 and Sore throat J02.[address] [address] May, Dysthymia F34.1 [facility] [place] [id number] [place] [address] Apr, Hypertension I10 [place] [address] [address] Apr, Cough R05 ; Sore throat J02.9 and Bronchitis J40 [place] [address] [address] Mar, Anxiety associated with depression F41.8 ; Adjustment disorder with anxiety F43.22 and Depression F32.9 [place] [address] [address] Mar, [place] [address] [address] Mar, Type 2 diabetes mellitus without complication, without long-term current use of insulin E11.9 ; Hypertension I10 ; Hyperlipidemia LDL goal <70 E78.5 ; Arthritis M19.90 ; Long-term use of high-risk medication Z79.899 and Dysthymia F34.1 [place] [address] [address] Mar, [place] [address] [address] Mar, [place] [address] [address] Feb, [place] [address] [address] Feb, Acute right hip pain M25.551 and Hypertension I10 [place] [address] [address] Feb, Diabetes E11.9 [place] [address] [address] Jan, Hypertension I10 [place] [address] [address] Jan, Hypertension I10 [facility] [place] [address] [address] Dec, Dysuria R30.0 [facility] [place] [address] [address] Dec, [facility] [place] [id number] [place] [address] Dec, Fibromyalgia M79.7 [facility] [place] [id number] [place] [address] Dec, Acute recurrent frontal sinusitis J01.11 and Hypertension I10 [facility] [place] [id number] [place] [address] Dec, Hypertension I10 [facility] [place] [id number] [place] [address] Dec, [facility] [place] [address] [place] [address] Dec, Hypertension I10 [facility] [place] [address] [place] [address] Nov, [facility] [place] [address] [place] [address] Oct, Fibromyalgia M79.7 ; Hypertension I10 ; Depression F32.9 ; Hypercholesterolemia E78.0 ; Anxiety associated with depression F41.8 and Diabetes E11.9 [facility] [place] [address] [address] September, Essential hypertension I10 ; Diabetes E11.9 ; Anxiety associated with depression F41.8 and Hypercholesterolemia E78.0 [facility] [place] [address] [address] Aug, [facility] [place] [address] [place] [address] Aug, Diabetes E11.9 [facility] [place] [id number] [place] [address] 10 Aug, 2016 [facility] [place] [id number] [place] [address] Jul, Acute non-recurrent maxillary sinusitis J01.00 [facility] [place] [id number] [place] [address] Jul, Anxiety associated with depression F41.8 [place] [id number] [place] [address] Jun, Anxiety associated with depression F41.8 and Hypercholesterolemia E78.0 [place] [id number] [place] [address] May, Diabetes E11.9 ; Insomnia G47.00 ; Fibromyalgia M79.7 ; Hypercholesterolemia E78.0 ; Anxiety associated with depression F41.8 and Essential hypertension I10 [place] [id number] [place] [address] May, [facility] [place] [id number] [place] [address] May, [place] [id number] [place] [address] Mar, [facility] [place] [id number] [place] [address] Mar, Hypertension I10 [facility] [place] [id number] [place] [address] Feb, [facility] [place] [id number] [place] [address] Feb, [facility] [place] [id number] [place] [address] Feb, Anxiety associated with depression F41.8 ; Chest tightness R07.89 and Elevated blood pressure I10 [facility] [place] [id number] [place] [address] Feb, Encounter for immunization Z23 ; Bronchitis J40 ; Diabetes E11.9 ; Hypertension I10 ; Insomnia G47.00 ; Hypercholesterolemia E78.0 ; Depression F32.9 and Fibromyalgia M79.7 [facility] [place] [address] [address] Jan, Bronchitis J40 and Depression F32.9 [facility] [address] [address] Jan, Bronchitis J40 [facility] [place] [address] [address] Dec, [place] [address] [address] Dec, [place] [address] [address] Nov, Acute non-recurrent frontal sinusitis J01.10 and Hypertension I10 [place] [address] [address] Nov, [place] [address] [address] Nov, Diabetes E11.9 ; Fibromyalgia M79.7 ; Hypertension I10 ; Insomnia G47.00 ; Depression F32.9 and Hypercholesterolemia E78.0 [place] [address] [address] Oct, Hypercholesterolemia E78.0 [facility] [place] [address] [address] September, [place] [address] [address] Aug, Diabetes E11.9 ; Fibromyalgia M79.7 ; Hypertension I10 ; Insomnia G47.00 ; Depression F32.9 ; Shoulder pain M25.519 ; Hypercholesterolemia E78.0 and Pain in right shoulder M25.511 [place] [address] [address] Jul, [facility] [place] [id number] [place] [address] Jun, Hypercholesterolemia E78.0 [facility] [place] [id number] [place] [address] Jun, [facility] [place] [id number] [place] [address] May, [facility] [place] [address] [address] May, Well woman exam Z01.419 [place] [address] [address] May, Hypertension I10 ; Diabetes E11.9 ; Fibromyalgia M79.7 ; Insomnia G47.00 ; Depression F32.9 and Hypercholesterolemia E78.0 [facility] [place] [address] [address] Apr, [facility] [place] [id number] [place] [address] Apr, Fibromyalgia M79.7 ; Hypertension I10 ; Bronchitis J40 ; Insomnia G47.00 ; Depression F32.9 ; Shoulder pain M25.519 and Hypercholesterolemia E78.0 [facility] [place] [id number] [place] [address] Mar, Hyperlipemia E78.5 [facility] [place] [id number] [place] [address] Mar, Diabetes E11.9 ; Hypertension I10 ; Insomnia G47.00 ; Depression F32.9 and Shoulder pain M25.519 [facility] [place] [address] [address] Mar, [facility] [place] [id number] [place] [address] Feb, [facility] [place] [address] [address] Feb, Diabetes E11.9 ; Encounter for immunization Z23 ; Fibromyalgia M79.7 ; Hypertension I10 ; Bronchitis J40 and Insomnia G47.00 [facility] [place] [id number] [place] [address] Feb, Bronchitis J40 [facility] [place] [id number] [place] [address] 28 Jan, 2015 Bronchitis 490 [facility] [place] [address] [address] Aug, [facility] [place] [address] [address] Aug, [facility] [place] [address] [address] Jul, [facility] [place] [address] [address] Jul, [facility] [place] [id number] [place] [address] Jul, [facility] [place] [id number] [place] [address] Jul, [facility] [place] [id number] [place] [address] Jun, [facility] [place] [id number] [place] [address] Jun, [facility] [place] [id number] [place] [address] May, [facility] [place] [id number] [place] [address] May, [facility] [place] [id number] [place] [address] Apr, [facility] [place] [id number] [place] [address] Apr, [facility] [place] [facility] [address] [id number] [place] [address] Apr, [facility] [place] [facility] [address] [id number] [place] [address] Apr, [facility] [place] [facility] [address] [id number] [place] [address] Apr, [facility] [place] [facility] [address] [id number] [place] [address] Apr, [facility] [place] [facility] [address] [id number] [place] [address] Feb, [facility] [place] [facility] [address] [id number] [place] [address] Feb, [facility] [place] [facility] [address] [id number] [place] [address] Jan, [facility] [place] [facility] [address] [id number] [place] [address] Jan, [facility] [place] [facility] [address] [id number] [place] [address] Dec, [facility] [place] [facility] [address] [id number] [place] [address] Dec, [facility] [place] [facility] [address] [id number] [place] [address] September, [facility] [place] [facility] [address] [id number] [place] [address] September, [facility] [place] [facility] [address] [id number] [place] [address] September, [facility] [place] [facility] [address] [id number] [place] [address] September, [facility] [place] [facility] [address] [id number] [place] [address] September, [facility] [place] [facility] [address] [id number] [place] [address] September, [facility] [place] [facility] [address] [id number] [place] [address] Aug, [facility] [place] [facility] [address] [id number] [place] [address] Aug, [facility] [place] [facility] [address] [id number] [place] [address] Jul, [facility] [place] [facility] [address] [id number] [place] [address] Jul, [facility] [place] [facility] [address] [id number] [place] [address] May, [facility] [place] [facility] [address] [id number] [place] [address] May, [facility] [place] [facility] [address] [id number] [place] [address] May, [facility] [place] [facility] [address] [id number] [place] [address] May, [facility] [place] [facility] [address] [id number] [place] [address] May, [facility] [place] [facility] [address] [id number] [place] [address] May, [facility] [place] [facility] [address] [id number] [address] Apr, [facility] [place] [facility] [address] [id number], [place] [address] Apr, [facility] [place] [facility] [address] [id number] [place] [address] Apr, [facility] [place] [facility] [address] [id number] [place] [address] Apr, [facility] [place] [facility] [address] [id number] [place] [address] 16 Apr, 2013 [facility] [place] [facility] [address] [id number] [place] [address] 16 Apr, 2013 [facility] [address] [id number] [place] [address] Apr, [facility] [place] [facility] [address] [id number] [place] [address] Apr, [facility] [place] [facility] [address] [id number] [place] [address] Feb, [facility] [place] [facility] [address] [id number] [place] [address] Feb, [facility] [place] [facility] [address] [id number] [place] [address] Feb, [facility] [place] [facility] [address] [id number] [place] [address] Feb, [facility] [place] [facility] [address] [id number] [place] [address] Feb, [facility] [place] [facility] [address] [id number] [place] [address] Feb, [facility] [place] [facility] [address] [id number] [place] [address] Feb, [facility] [place] [facility] [address] [id number] [place] [address] Feb, [facility] [place] [facility] [address] [id number] [place] [address] Nov, [facility] [place] [facility] [address] [id number] [place] [address] Nov, [facility] [place] [facility] [address] [id number] [place] [address] Oct, [facility] [place] [facility] [address] [id number] [place] [address] Oct, [facility] [place] [facility] [address] [id number] [place] [address] Oct, [facility] [address] [id number] [place] [address] September, [facility] [address] [id number] [place] [address] September, [facility] [address] [id number] [place] [address] September, [facility] [address] [id number] [place] [address] September, [facility] [address] [id number] [place] [address] September, [facility] [address] [id number] [place] [address] September, [facility] [address] [id number] [place] [address] September, [facility] [address] [id number] [place] [address] September, [facility] [address] [id number] [place] [address] September, [facility] [address] [id number] [place] [address] September, [facility] [address] [id number] [place] [address] Aug, [facility] [address] [id number], [place] [address] Jul, [facility] [place] [facility] [address] [id number] [place] [address] Jun, [facility] [place] [facility] [address] [id number] [place] [address] Jun, [facility] [place] [facility] [address] [id number] [place] [address] May, [facility] [place] [facility] [address] [id number], [place] [address] May, [facility] [place] [facility] [address] [id number] [place] [address] Mar, [facility] [place] [facility] [address] [facility] [id number], [place] [address] Mar, [facility] [place] [facility] [address] [facility] [id number] [place] [address] Mar, [facility] [place] [facility] [address] [id number] [place] [address] Mar, [facility] [place] [facility] [address] [facility] [id number] [place] [address], [place] [address] Feb, [facility] [place] [facility] [address] [facility] [id number] [place] [address] Feb, [facility] [place] [facility] [id number] [place] [address] Feb, [facility] [place] [facility] [address] [facility] [id number] [place] [address] Feb, [facility] [place] [facility] [address] [id number] [place] [address] Feb, [facility] [place] [facility] [address] [id number], [place] [address] Feb, [facility] [place] [facility] [address] [facility] [id number], [place] [address] Feb, [facility] [place] [facility] [address] [facility] [id number][place] [address] 18 Jan, 2012 [facility] [place] [facility] [address] [id number] [place] [address] 14 Jan, 2012 [facility] [place] [facility] [address] [facility] [id number], [place] [address] 10 Jan, 2012 [facility] [place] [facility] [address] [id number], [place] [address] 30 Dec, 2011 [facility] [place] [facility] [address] [id number] [place] [address] Dec, [facility] [address] [id number] [place] [address] Dec, [facility] [place] [facility] [address] [id number] [place] [address] Nov, [facility] [address] [id number] [place] [address] Oct, [facility] [place] [facility] [address] [id number] [place] [address] Oct, [facility] [place] [facility] [address] [id number] [place] [address] Oct, [facility] [address] [id number] [place] [address] Oct, [facility] [address] [id number] [place] [address] Oct, [facility] [address] [id number] [place] [address] Aug, [facility] [address] [id number] [place] [address] Aug, [facility] [address] [id number] [place] [address] Jul, [facility] [address] [id number] [place] [address] Jun, [facility] [address] [id number] [place] [id number] Jun, [facility] [place] [facility] [address] [id number] [place] [address] May, [facility] [place] [facility] [address] [id number] [place] [address] May, [facility] [address] [id number] [place] [address] May, [facility] [place] [address] [facility] [id number], [place] [address] May, [facility] [place] [address] [facility] [id number], [place] [address] May, [facility] [place] [address] [facility] [id number], [place] [address] Apr, [facility] [place] [address] [facility] [id number], [place] [address] Apr, [place] [facility] [place] [address] [facility] [id number], [place] [address] Apr, [facility] [place] [address] [facility] [id number], [place] [address] Apr, [facility] [place] [id number] [address] Apr, [facility] [place] [address] [address] Apr, [facility] [place] [address] [id number] [address] Apr, [facility] [place] [address] [id number], [place] [address] Apr, IMMUNIZATIONS No Known Immunizations SOCIAL HISTORY Never Assessed REASON FOR VISIT PLAN OF CARE VITAL SIGNS MEDICATIONS Unknown Medications RESULTS No Results PROCEDURES Procedure Date Ordered Result Body Site LIPID PANEL December 02, 2017 VENIPAZUCENA, ROUTINE* December 02, 2017 INSTRUCTIONS MEDICATIONS ADMINISTERED No Known Medications MEDICAL (GENERAL) HISTORY Type Description Date Medical History Diabetes type II Medical History hypertension Medical History fibromyalgia Medical History hyperlipidemia Medical History ostoarthrtis Surgical History hysterectomy has right ovary left 1995 Surgical History shoulder surgery(right) 09/2014 Hospitalization History surgeries Hospitalization History childbirth x 2
--- OUTSIDE RECORDS SUMMARY | 2018-09-19 20:35 | XMS REPORT ---
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 Name Role Phone OBED REED Unavailable PROBLEMS Type Condition ICD9-CM Code QLH92-JV Code Onset Dates Condition Status SNOMED Code Problem Hyperlipidemia LDL goal <70 E78.5 Active 93280139 Problem Arthritis M19.90 Active 4652515 Problem Long-term use of high-risk medication Z79.899 Active 984588510 Problem Insomnia G47.00 Active 243562347 Problem Hypertension I10 Active 63184865 Problem Fibromyalgia M79.7 Active 61596836 Problem Anxiety associated with depression F41.8 Active 171981845 Problem Hypercholesterolemia E78.0 Active 89252767 Problem Chronic fatigue R53.82 Active 53659233 Problem Adjustment disorder with anxiety F43.22 Active 95383019 Problem Type 2 diabetes mellitus without complication, without long-term current use of insulin E11.9 Active 902445660 Problem Overweight (BMI 25.0-29.9) E66.3 Active 679224454 Problem Chronic maxillary sinusitis J32.0 Active 66407753 ALLERGIES Substance Reaction Event Type Date Status Tetanus Unknown Drug Allergy Nov, Active Trilipix throat tightness Drug Allergy Nov, Active Wellbutrin chest pain Drug Allergy Nov, Active Sulfamethoxazole-Trimethoprim Unknown Drug Allergy Nov, Active Penicillin V Potassium Unknown Drug Allergy Nov, Active Lopid throat tightness Drug Allergy Nov, Active Celebrex HEADACHE Drug Allergy Nov, Active Azithromycin Unknown Drug Allergy Nov, Active ENCOUNTERS Encounter Location Date Diagnosis [facility] [address] [facility] [id number], [place] [address] Jan, [facility] [address] [facility] [id number] [place] [address] Dec, Fibromyalgia M79.7 [facility] [address], [place] [address] Nov, Hyperlipidemia LDL goal <70 E78.5 [place] [id number] [place] [address] Nov, Hyperlipidemia LDL goal <70 E78.5 [place] [id number] [place] [address] Nov, Hypercholesterolemia E78.0 [place] [id number] [place] [address] Oct, Hyperlipidemia LDL goal <70 E78.5 [place] [id number] [place] [address] Oct, Type 2 diabetes mellitus without complication, without long-term current use of insulin E11.9 ; Hyperlipidemia LDL goal <70 E78.5 ; Hypertension I10 ; Fibromyalgia M79.7 and Chronic fatigue R53.82 [place] [id number] [place] [address] Oct, Type 2 diabetes mellitus without complication, without long-term current use of insulin E11.9 ; Hyperlipidemia LDL goal <70 E78.5 ; Hypertension I10 ; Fibromyalgia M79.7 ; Chronic fatigue R53.82 and Overweight (BMI 25.0-29.9) E66.3 [place] [id number] [place] [address] Aug, Hypertension I10 and Dyshidrotic eczema L30.1 [place] [id number] [place] [address] Jun, Hyperlipidemia LDL goal <70 E78.5 [place] [id number] [place] [address] Jun, Arthritis M19.90 [place] [id number] [place] [address] May, Hypertension I10 ; Anxiety associated with depression F41.8 ; Hyperlipidemia LDL goal <70 E78.5 and Chronic maxillary sinusitis J32.0 [place] [id number] [place] [address] May, Acute non-recurrent maxillary sinusitis J01.00 and Sore throat J02.9 [place] [id number] [place] [address] May, Dysthymia F34.1 [place] [address] [address] Apr, Hypertension I10 [address] [address] Apr, Cough R05 ; Sore throat J02.9 and Bronchitis J40 [address] [address] Mar, Anxiety associated with depression F41.8 ; Adjustment disorder with anxiety F43.22 and Depression F32.9 [place] [id number] [place] [address] Mar, [address] [address] Mar, Type 2 diabetes mellitus without complication, without long-term current use of insulin E11.9 ; Hypertension I10 ; Hyperlipidemia LDL goal <70 E78.5 ; Arthritis M19.90 ; Long-term use of high-risk medication Z79.899 and Dysthymia F34.1 [place] [id number] [place] [address] Mar, [place] [address] [address] Mar, [place] [id number] [place] [address] Feb, [place] [id number] [place] [address] Feb, Acute right hip pain M25.551 and Hypertension I10 [facility] [id number] [place] [address] Feb, Diabetes E11.9 [facility] [id number] [place] [address] Jan, Hypertension I10 [facility] [id number] [place] [address] Jan, Hypertension I10 [facility] [id number] [place] [address] Dec, Dysuria R30.0 [facility] [id number] [place] [address] Dec, [facility] [id number] [place] [address] Dec, Fibromyalgia M79.7 [facility] [id number] [place] [address] Dec, Acute recurrent frontal sinusitis J01.11 and Hypertension I10 [facility] [id number] [place] [address] Dec, Hypertension I10 [facility] [id number] [place] [address] Dec, [facility] [id number] [place] [address] Dec, Hypertension I10 [facility] [id number] [place] [address] Nov, [facility] [id number] [place] [address] Oct, Fibromyalgia M79.7 ; Hypertension I10 ; Depression F32.9 ; Hypercholesterolemia E78.0 ; Anxiety associated with depression F41.8 and Diabetes E11.9 [facility] [id number] [place] [address] September, Essential hypertension I10 ; Diabetes E11.9 ; Anxiety associated with depression F41.8 and Hypercholesterolemia E78.0 [facility] [id number] [place] [address] Aug, [facility] [id number] [place] [address] Aug, Diabetes E11.9 [facility] [id number] [place] [address] Aug, [facility] [id number] [place] [address] Jul, Acute non-recurrent maxillary sinusitis J01.00 [facility] [id number] [place] [address] Jul, Anxiety associated with depression F41.8 [facility] [id number] [place] [address] Jun, Anxiety associated with depression F41.8 and Hypercholesterolemia E78.0 [facility] [id number] [place] [address] May, Diabetes E11.9 ; Insomnia G47.00 ; Fibromyalgia M79.7 ; Hypercholesterolemia E78.0 ; Anxiety associated with depression F41.8 and Essential hypertension I10 [facility] [id number] [place] [address] May, [facility] [id number] [place] [address] May, [facility] [id number] [place] [address] Mar, [facility] [id number] [place] [address] Mar, Hypertension I10 [facility] [id number] [place] [address] Feb, [facility] [id number] [place] [address] Feb, [facility] [id number] [place] [address] Feb, Anxiety associated with depression F41.8 ; Chest tightness R07.89 and Elevated blood pressure I10 [place] [id number] [place] [address] Feb, Encounter for immunization Z23 ; Bronchitis J40 ; Diabetes E11.9 ; Hypertension I10 ; Insomnia G47.00 ; Hypercholesterolemia E78.0 ; Depression F32.9 and Fibromyalgia M79.7 [facility] [id number] [place] [address] Jan, Bronchitis J40 and Depression F32.9 [facility] [id number] [place] [address] Jan, Bronchitis J40 [facility] [address] [address] Dec, [facility] [id number] [place] [address] Dec, [place] [id number] [place] [address] Nov, Acute non-recurrent frontal sinusitis J01.10 and Hypertension I10 [place] [id number] [place] [address] Nov, [facility] [address] [address] Nov, Diabetes E11.9 ; Fibromyalgia M79.7 ; Hypertension I10 ; Insomnia G47.00 ; Depression F32.9 and Hypercholesterolemia E78.0 [place] [id number] [place] [address] Oct, Hypercholesterolemia E78.0 [facility] [id number] [place] [address] September, [place] [id number] [place] [address] Aug, Diabetes E11.9 ; Fibromyalgia M79.7 ; Hypertension I10 ; Insomnia G47.00 ; Depression F32.9 ; Shoulder pain M25.519 ; Hypercholesterolemia E78.0 and Pain in right shoulder M25.511 [place] [address] [address] Jul, [place] [address] [address] Jun, Hypercholesterolemia E78.0 [place] [address] [address] Jun, [place] [address] [address] May, [place] [address] [address] May, Well woman exam Z01.419 [place] [address] [address] May, Hypertension I10 ; Diabetes E11.9 ; Fibromyalgia M79.7 ; Insomnia G47.00 ; Depression F32.9 and Hypercholesterolemia E78.0 [place] [id number] [place] [address] Apr, [address] [address] Apr, Fibromyalgia M79.7 ; Hypertension I10 ; Bronchitis J40 ; Insomnia G47.00 ; Depression F32.9 ; Shoulder pain M25.519 and Hypercholesterolemia E78.[address] [address] Mar, Hyperlipemia E78.5 [place] [id number] [place] [address] Mar, Diabetes E11.9 ; Hypertension I10 ; Insomnia G47.00 ; Depression F32.9 and Shoulder pain M25.519 [facility] [id number] [place] [address] Mar, [facility] [address] [address] Feb, [facility] [id number] [place] [address] Feb, Diabetes E11.9 ; Encounter for immunization Z23 ; Fibromyalgia M79.7 ; Hypertension I10 ; Bronchitis J40 and Insomnia G47.00 [facility] [address] [address] Feb, Bronchitis J40 [facility] [address] [address] Jan, Bronchitis 490 [facility] [address] [address] Aug, [facility] [address] [address] Aug, [facility] [address] [address] Jul, [facility] [id number] [place] [address] Jul, [facility] [id number] [place] [address] Jul, [facility] [id number] [place] [address] Jul, [facility] [id number] [place] [address] Jun, [facility] [address] [address] Jun, [facility] [id number] [place] [address] May, [facility] [place] [facility] [address] [id number] [place] [address] May, [facility] [place] [facility] [address] [id number] [place] [address] Apr, [facility] [place] [facility] [address] [id number] [place] [address] Apr, [facility] [place] [facility] [address] [id number] [place] [address] Apr, [facility] [place] [facility] [address] [id number] [place] [address] Apr, [facility] [place] [facility] [address] [id number] [place] [address] Apr, [facility] [place] [facility] [address] [id number] [place] [address] Apr, [facility] [place] [facility] [address] [id number] [place] [address] Feb, [facility] [place] [facility] [address] [id number] [place] [address] Feb, [facility] [place] [facility] [address] [id number] [place] [address] Jan, [facility] [place] [facility] [address] [id number] [place] [address] Jan, [facility] [place] [facility] [address] [id number] [place] [address] Dec, [facility] [place] [facility] [address] [id number] [place] [address] Dec, [facility] [place] [facility] [address] [id number] [place] [address] September, [facility] [place] [facility] [address] [id number] [place] [address] September, [facility] [place] [facility] [address] [id number] [place] [address] September, [facility] [place] [facility] [address] [id number] [place] [address] September, [facility] [place] [facility] [address] [id number] [place] [address] September, [facility] [place] [facility] [address] [id number] [place] [address] September, [facility] [place] [facility] [address] [id number] [place] [address] Aug, [facility] [place] [facility] [address] [id number] [place] [address] Aug, [facility] [place] [facility] [address] [id number] [place] [address] Jul, [facility] [place] [facility] [address] [id number] [place] [address] Jul, [facility] [place] [facility] [address] [id number], [place] [address] May, [facility] [place] [facility] [address] [id number] [place] [address] May, [facility] [place] [facility] [address] [id number] [place] [address] May, [facility] [place] [facility] [address] [id number], [place] [address] May, [facility] [place] [facility] [address] [id number], [place] [address] May, [facility] [place] [facility] [address] [id number] [place] [address] May, [facility] [place] [facility] [address] [id number], [place] [address] Apr, [facility] [place] [facility] [address] [id number] [place] [address] Apr, [facility] [place] [facility] [address] [id number] [place] [address] Apr, 2012 [facility] [place] [facility] [address] [id number] [place] [address] 19 Apr, 2012 [facility] [place] [facility] [address] [id number] [place] [address] 16 Apr, 2012 [facility] [place] [facility] [address] [id number] [place] [address] 16 Apr, 2012 [facility] [place] [facility] [address] [id number] [place] [address] Apr, [facility] [place] [facility] [address] [id number] [place] [address] Apr, [facility] [place] [facility] [address] [id number] [place] [address] Feb, [facility] [place] [facility] [address] [id number] [place] [address] Feb, [facility] [place] [facility] [address] [id number] [place] [address] Feb, [facility] [place] [facility] [address] [id number] [place] [address] 15 Feb, 2013 [facility] [place] [facility] [address] [id number] [place] [address] Feb, [facility] [place] [facility] [address] [id number] [place] [address] Feb, [facility] [place] [facility] [address] [id number] [place] [address] Feb, [facility] [place] [facility] [address] [id number] [place] [address] Feb, [facility] [place] [facility] [address] [id number] [place] [address] Nov, [facility] [place] [facility] [address] [id number] [place] [address] Nov, [facility] [place] [facility] [address] [id number] [place] [address] Oct, [facility] [address] [id number] [place] [address] Oct, [facility] [address] [id number] [place] [address] Oct, [facility] [address] [id number] [place] [address] September, [facility] [address] [id number] [place] [address] September, [facility] [address] [id number] [place] [address] September, [facility] [address] [id number] [place] [address] September, [facility] [address] [id number] [place] [address] September, [facility] [address] [id number] [place] [address] September, [facility] [address] [id number] [place] [address] September, [facility] [address] [id number] [place] [address] September, [facility] [address] [id number] [place] [address] September, [facility] [address] [id number] [place] [address] September, [facility] [address] [id number] [place] [address] Aug, [facility] [address] [id number] [place] [address] Jul, [facility] [address] [id number], [place] [address] Jun, [facility] [place] [facility] [address] [id number] [place] [address] Jun, [facility] [place] [facility] [address] [facility] [id number] [place] [address] May, [facility] [place] [facility] [address] [facility] [id number] [place] [address] May, [facility] [place] [facility] [address] [id number] [place] [address] Mar, [facility] [place] [facility] [address] [id number] [place] [address] Mar, [facility] [place] [facility] [address] [facility] [id number] [place] [address] Mar, [facility] [place] [facility] [address] [facility] [id number] [place] [address] Mar, [facility] [place] [facility] [address] [facility] [id number] [place] [address] Feb, [facility] [place] [facility] [address] [facility] [id number] [place] [address] Feb, [facility] [place] [facility] [address] [facility] [id number] [place] [address] Feb, [facility] [place] [facility] [address] [facility] [id number], [place] [address] Feb, [facility] [place] [facility] [address] [facility] [id number], [place] [address] Feb, [facility] [place] [facility] [address] [facility] [id number] [place] [address] Feb, [facility] [place] [facility] [address] [facility] [id number], [place] [address] Feb, [facility] [place] [facility] [address] [facility] [id number], [place] [address] Jan, [facility] [place] [facility] [address] [id number] [place] [address] 14 Jan, 2012 [facility] [place] [facility] [address] [id number] [place] [address] 10 Jan, 2012 [facility] [place] [facility] [address] [facility] [id number] [place] [address] 30 Dec, 2011 [facility] [place] [facility] [address] [id number] [place] [address] Dec, [facility] [place] [facility] [address] [facility] [id number] [place] [address] Dec, [facility] [place] [facility] [address] [facility] [id number] [place] [address] Nov, [facility] [place] [facility] [address] [facility] [id number] [place] [address] Oct, [facility] [place] [facility] [id number] [place] [address] Oct, [facility] [address] [facility] [id number] [place] [address] Oct, [facility] [place] [facility] [address] [id number] [place] [address] Oct, [facility] [address] [id number] [place] [address] Oct, [facility] [place] [facility] [address] [id number] [place] [address] 24 Aug, 2011 [facility] [place] [facility] [address] [facility] [id number] [place] [address] Aug, [facility] [place] [facility] [address] [facility] [id number] [place] [address] Jul, [facility] [place] [facility] [address] [facility] [id number] [place] [address] 20 Jun, 2011 [facility] [address] [facility] [id number][place] [id number] Jun, [facility] [address] [id number] [address] May, [facility] [id number], [place] [address] May, [facility] [address] [id number], [place] [address] May, [facility] [id number], [place] [address] May, [facility] [address] [id number], [place] [address] May, [facility] [id number], [place] [address] Apr, [facility] [id number], [place] [address] Apr, [facility] [id number], [place] [address] Apr, [facility] [id number], [place] [address] Apr, [facility] [id number], [place] [address] Apr, [facility] [address] [id number], [place] [address] Apr, [facility] [address] [id number], [place] [address] Apr, [facility] [address] [id number], [place] [address] Apr, IMMUNIZATIONS No Known Immunizations SOCIAL HISTORY [...]
--- OUTSIDE RECORDS SUMMARY | 2018-09-19 20:35 | XMS REPORT ---
Author Author OBED REED Organization [facility] Address [address] [place] [address] Care Team Providers Care Returning Officer Name Role Phone OBED REED Unavailable PROBLEMS Type Condition ICD9-CM Code QTW92-SD Code Onset Dates Condition Status SNOMED Code Problem Hyperlipidemia LDL goal <70 E78.5 Active 95318737 Problem Arthritis M19.90 Active 1723437 Problem Long-term use of high-risk medication Z79.899 Active 180987905 Problem Insomnia G47.00 Active 764324701 Problem Hypertension I10 Active 30738753 Problem Fibromyalgia M79.7 Active 72701715 Problem Anxiety associated with depression F41.8 Active 211262370 Problem Hypercholesterolemia E78.0 Active 90201158 Problem Chronic fatigue R53.82 Active 50114470 Problem Adjustment disorder with anxiety F43.22 Active 51889583 Problem Type 2 diabetes mellitus without complication, without long-term current use of insulin E11.9 Active 421146977 Problem Overweight (BMI 25.0-29.9) E66.3 Active 104764963 Problem Chronic maxillary sinusitis J32.0 Active 92082677 ALLERGIES No Information ENCOUNTERS Encounter Location Date Diagnosis [facility] [id number] [address] Jan, [facility] [id number] [place] [address] Nov, Hyperlipidemia LDL goal <70 E78.5 [facility] [id number] [place] [address] Nov, Hyperlipidemia LDL goal <70 E78.5 [facility] [address] [address] Nov, Hypercholesterolemia E78.0 [facility] [id number] [place] [address] Oct, Hyperlipidemia LDL goal <70 E78.5 [address] [id number] [place] [address] 18 Oct, 2017 Type 2 diabetes mellitus without complication, without long-term current use of insulin E11.9 ; Hyperlipidemia LDL goal <70 E78.5 ; Hypertension I10 ; Fibromyalgia M79.7 and Chronic fatigue R53.82 [place] [address] [address] 15 Oct, 2017 Type 2 diabetes mellitus without complication, without long-term current use of insulin E11.9 ; Hyperlipidemia LDL goal <70 E78.5 ; Hypertension I10 ; Fibromyalgia M79.7 ; Chronic fatigue R53.82 and Overweight (BMI 25.0-29.9) E66.[address] [address] Aug, Hypertension I10 and Dyshidrotic eczema L30.[address] [address] 14 Jun, 2017 Hyperlipidemia LDL goal <[address] [address] Jun, Arthritis M19.90 [id number] [place] [address] May, Hypertension I10 ; Anxiety associated with depression F41.8 ; Hyperlipidemia LDL goal <70 E78.5 and Chronic maxillary sinusitis J32.[address] [address] May, Acute non-recurrent maxillary sinusitis J01.00 and Sore throat J02.[address] [address] May, Dysthymia F34.[address] [address] Apr, Hypertension I10 [facility] [id number] [place] [address] Apr, Cough R05 ; Sore throat J02.9 and Bronchitis J40 [facility] [id number] [place] [address] Mar, Anxiety associated with depression F41.8 ; Adjustment disorder with anxiety F43.22 and Depression F32.9 [place] [address] [address] Mar, [place] [address] [address] Mar, Type 2 diabetes mellitus without complication, without long-term current use of insulin E11.9 ; Hypertension I10 ; Hyperlipidemia LDL goal <70 E78.5 ; Arthritis M19.90 ; Long-term use of high-risk medication Z79.899 and Dysthymia F34.1 [place] [address] [address] Mar, [place] [address] [address] Mar, [place] [id number] [place] [address] Feb, [place] [id number] [place] [address] Feb, Acute right hip pain M25.551 and Hypertension I10 [facility] [id number] [place] [address] Feb, Diabetes E11.9 [place] [address] [address] Jan, Hypertension I10 [facility] [id number] [place] [address] 12 Jan, 2017 Hypertension I10 [facility] [address] [address] Dec, Dysuria R30.0 [facility] [id number] [place] [address] Dec, [facility] [id number] [place] [address] Dec, Fibromyalgia M79.7 [facility] [id number] [place] [address] Dec, Acute recurrent frontal sinusitis J01.11 and Hypertension I10 [facility] [id number] [place] [address] Dec, Hypertension I10 [facility] [id number] [place] [address] Dec, [facility] [id number] [place] [address] Dec, Hypertension I10 [facility] [id number] [place] [address] Nov, [facility] [id number] [place] [address] Oct, Fibromyalgia M79.7 ; Hypertension I10 ; Depression F32.9 ; Hypercholesterolemia E78.0 ; Anxiety associated with depression F41.8 and Diabetes E11.9 [facility] [address] [place] [address] September, Essential hypertension I10 ; Diabetes E11.9 ; Anxiety associated with depression F41.8 and Hypercholesterolemia E78.0 [facility] [address] [place] [address] Aug, [facility] [id number] [place] [address] Aug, Diabetes E11.9 [facility] [id number] [place] [address] Aug, [facility] [address] [place] [address] 13 Jul, 2016 Acute non-recurrent maxillary sinusitis J01.00 [place] [id number] [place] [address] Jul, Anxiety associated with depression F41.8 [place] [id number] [place] [address] 17 Jun, 2016 Anxiety associated with depression F41.8 and Hypercholesterolemia E78.0 [place] [id number] [place] [address] May, Diabetes E11.9 ; Insomnia G47.00 ; Fibromyalgia M79.7 ; Hypercholesterolemia E78.0 ; Anxiety associated with depression F41.8 and Essential hypertension I10 [place] [id number] [place] [address] May, [place] [id number] [place] [address] May, [facility] [id number] [place] [address] Mar, [place] [id number] [place] [address] Mar, Hypertension I10 [place] [id number] [place] [address] Feb, [place] [id number] [place] [address] Feb, [place] [id number] [place] [address] Feb, Anxiety associated with depression F41.8 ; Chest tightness R07.89 and Elevated blood pressure I10 [facility] [id number] [place] [address] Feb, Encounter for immunization Z23 ; Bronchitis J40 ; Diabetes E11.9 ; Hypertension I10 ; Insomnia G47.00 ; Hypercholesterolemia E78.0 ; Depression F32.9 and Fibromyalgia M79.7 [facility] [id number] [place] [address] Jan, Bronchitis J40 and Depression F32.9 [facility] [id number] [place] [address] Jan, Bronchitis J40 [facility] [address] [address] Dec, [facility] [address] [address] Dec, [facility] [address] [address] Nov, Acute non-recurrent frontal sinusitis J01.10 and Hypertension I10 [place] [address] [address] Nov, [facility] [address] [address] Nov, Diabetes E11.9 ; Fibromyalgia M79.7 ; Hypertension I10 ; Insomnia G47.00 ; Depression F32.9 and Hypercholesterolemia E78.0 [place] [id number] [place] [address] Oct, Hypercholesterolemia E78.0 [facility] [id number] [place] [address] September, [facility] [address] [address] Aug, Diabetes E11.9 ; Fibromyalgia M79.7 ; Hypertension I10 ; Insomnia G47.00 ; Depression F32.9 ; Shoulder pain M25.519 ; Hypercholesterolemia E78.0 and Pain in right shoulder M25.511 [facility] [id number] [place] [address] Jul, [facility] [address] [address] Jun, Hypercholesterolemia E78.0 [facility] [id number] [place] [address] Jun, [facility] [id number] [place] [address] May, [facility] [id number] [place] [address] May, Well woman exam Z01.419 [place] [address] [address] May, Hypertension I10 ; Diabetes E11.9 ; Fibromyalgia M79.7 ; Insomnia G47.00 ; Depression F32.9 and Hypercholesterolemia E78.0 [place] [id number] [place] [address] Apr, [place] [address] [address] Apr, Fibromyalgia M79.7 ; Hypertension I10 ; Bronchitis J40 ; Insomnia G47.00 ; Depression F32.9 ; Shoulder pain M25.519 and Hypercholesterolemia E78.0 [place] [id number] [place] [address] Mar, Hyperlipemia E78.5 [place] [id number] [place] [address] Mar, Diabetes E11.9 ; Hypertension I10 ; Insomnia G47.00 ; Depression F32.9 and Shoulder pain M25.519 [place] [id number] [place] [address] Mar, [place] [address] [address] Feb, [facility] [id number] [place] [address] Feb, Encounter for immunization Z23 ; Diabetes E11.9 ; Fibromyalgia M79.7 ; Hypertension I10 ; Bronchitis J40 and Insomnia G47.00 [facility] [address] [id number] [place] [address] 09 Feb, 2015 Bronchitis J40 [facility] [address] [facility] [id number] [place] [address] 28 Jan, 2015 Bronchitis 490 [facility] [address] [facility] [id number] [place] [address] Aug, [facility] [address] [id number] [address] Aug, [facility] [address] [facility] [id number] [place] [address] Jul, [facility] [id number], [place] [address] Jul, [facility] [address], [place] [address] Jul, [facility] [address] [facility] [id number], [place] [address] Jul, [facility] [id number], [place] [address] Jun, [facility] [id number], [place] [address] Jun, [facility] [id number], [place] [address] May, [facility] [id number], [place] [address] May, [facility] [address] [facility] [id number] [address] Apr, [facility] [address] [facility] [id number], [place] [address] Apr, [facility] [id number], [place] [address] Apr, [facility] [place] [facility] [address] [facility] [id number] [place] [address] Apr, [facility] [place] [facility] [address] [id number] [place] [address] Apr, [facility] [place] [facility] [address] [id number] [place] [address] Apr, [facility] [place] [facility] [address] [id number] [place] [address] Feb, [facility] [place] [facility] [address] [id number] [place] [address] Feb, [facility] [place] [facility] [address] [id number] [place] [address] Jan, [facility] [place] [facility] [address] [id number] [place] [address] Jan, [facility] [place] [facility] [address] [id number] [place] [address] Dec, [facility] [place] [facility] [address] [id number] [place] [address] Dec, [facility] [place] [facility] [address] [id number] [place] [address] September, [facility] [place] [facility] [address] [id number] [place] [address] September, [facility] [place] [facility] [address] [id number] [place] [address] September, [facility] [place] [facility] [address] [id number] [place] [address] September, [facility] [place] [facility] [address] [id number] [place] [address] September, [facility] [place] [facility] [address] [id number] [place] [address] September, [facility] [place] [facility] [address] [id number] [place] [address] Aug, [facility] [place] [facility] [address] [id number] [place] [address] Aug, [facility] [place] [facility] [address] [id number] [place] [address] Jul, [facility] [place] [facility] [address] [id number] [place] [address] Jul, [facility] [place] [facility] [address] [id number] [place] [address] May, [facility] [place] [facility] [address] [id number] [place] [address] May, [facility] [place] [facility] [address] [id number] [place] [address] May, [facility] [place] [facility] [address] [id number] [place] [address] May, [facility] [place] [facility] [address] [id number] [place] [address] May, [facility] [place] [facility] [address] [id number] [place] [address] May, [facility] [place] [facility] [address] [id number] [place] [address] Apr, [facility] [place] [facility] [address] [id number] [place] [address] Apr, [facility] [place] [facility] [address] [id number] [place] [address] Apr, [facility] [place] [facility] [address] [id number] [place] [address] Apr, [facility] [place] [facility] [address] [id number] [place] [address] Apr, [facility] [place] [facility] [address] [id number] [place] [address] Apr, [facility] [place] [facility] [address] [id number] [place] [address] Apr, [facility] [place] [facility] [address] [id number] [place] [address] Apr, [facility] [place] [facility] [address] [id number] [place] [address] Feb, [facility] [place] [facility] [address] [id number] [place] [address] Feb, [facility] [place] [facility] [address] [id number] [place] [address] Feb, [facility] [place] [facility] [address] [id number] [place] [address] Feb, [facility] [place] [facility] [address] [id number] [place] [address] Feb, [facility] [place] [facility] [address] [id number] [place] [address] Feb, [facility] [place] [facility] [address] [id number] [place] [address] Feb, [facility] [place] [facility] [address] [id number] [place] [address] Feb, [facility] [place] [facility] [address] [id number] [place] [address] Nov, [facility] [place] [facility] [address] [id number] [place] [address] Nov, [facility] [place] [facility] [address] [id number], [place] [address] Oct, [facility] [place] [facility] [address] [id number] [place] [address] Oct, [facility] [place] [facility] [address] [id number] [place] [address] Oct, [facility] [place] [facility] [address] [id number] [place] [address] September, [facility] [place] [facility] [address] [id number] [place] [address] September, [facility] [address] [id number] [place] [address] September, [facility] [address] [id number] [place] [address] September, [facility] [address] [id number] [place] [address] September, [facility] [address] [id number] [place] [address] September, [facility] [address] [id number] [place] [address] September, [facility] [address] [id number] [place] [address] September, [facility] [address] [id number] [place] [address] September, [facility] [address] [id number] [place] [address] September, [facility] [address] [id number] [place] [address] Aug, [facility] [address] [id number] [place] [address] Jul, [facility] [address] [id number] [place] [address] Jun, [facility] [address] [id number] [place] [address] Jun, [facility] [place] [facility] [address] [id number] [place] [address] May, [facility] [place] [facility] [address] [id number] [place] [address] May, [facility] [place] [facility] [address] [id number] [place] [address] Mar, [facility] [place] [facility] [address] [id number] [place] [address] Mar, [facility] [place] [facility] [address] [id number] [place] [address] Mar, [facility] [place] [facility] [address] [facility] [id number] [place] [address] Mar, [facility] [place] [facility] [address] [id number] [place] [address] Feb, [facility] [place] [facility] [address] [id number] [place] [address] Feb, [facility] [place] [facility] [address] [id number] [place] [address] Feb, [facility] [place] [facility] [address] [id number] [place] [address] Feb, [facility] [place] [facility] [address] [id number] [place] [address] Feb, [facility] [place] [facility] [address] [id number] [place] [address] Feb, [facility] [place] [facility] [address] [id number] [place] [address] Feb, [facility] [place] [facility] [address] [id number], [place] [address] 18 Jan, 2012 [facility] [place] [facility] [address] [id number], [place] [address] 14 Jan, 2012 [facility] [place] [facility] [address] [id number] [place] [address] 10 Jan, 2012 [facility] [place] [facility] [address] [facility] [id number] [place] [address] 30 Dec, 2011 [facility] [place] [facility] [address] [id number] [place] [address] Dec, [facility] [place] [facility] [address] [id number] [place] [address] Dec, [facility] [address] [id number] [place] [address] Nov, [facility] [address] [id number] [place] [address] Oct, [facility] [address] [id number] [place] [address] Oct, [facility] [address] [id number] [place] [address] Oct, [facility] [address] [id number] [place] [address] Oct, [facility] [address] [facility] [id number] [place] [address] Oct, [facility] [id number] [address] Aug, [facility] [address] [id number] [address] Aug, [facility] [id number], [place] [address] Jul, [facility] [address] [id number] [address] Jun, [facility] [place] [place] [id number] [id number] Jun, [facility] [address] [id number] [address] May, [facility] [address] [facility] [id number], [place] [address] May, [facility] [address] [id number] [address] May, [facility] [address] [id number], [place] [address] May, [facility] [address] [facility] [id number], [place] [address] May, [facility] [address] [facility] [id number], [place] [address] Apr, [facility] [address] [facility] [id number], [place] [address] Apr, [facility] [address] [facility] [id number], [place] [address] Apr, [facility] [address] [facility] [id number], [place] [address] Apr, [facility] [address] [facility] [id number], [place] [address] Apr, [facility] [id number], [place] [address] Apr, [facility] [id number], [place] [address] Apr, [facility] [address] [id number], [place] [address] Apr, IMMUNIZATIONS No Known Immunizations SOCIAL HISTORY Never Assessed REASON FOR VISIT new orders PLAN OF CARE VITAL SIGNS MEDICATIONS Medication Instructions Dosage Frequency Start Date End Date Duration Status Pravastatin Sodium 20 mg Orally Once a day 1 tablet 24h Mar, 30 days Active Trilipix 135 MG Orally Once a day 1 capsule 24h Oct, 30 day(s) Active Vitamin D 2000 UNIT Orally Once a day 1 tablet 24h Oct, Nov, 12 days Active Vitamin D (Ergocalciferol) 77211 UNIT Orally once weekly 1 capsule Oct, Dec, 8 weeks Active RESULTS No Results PROCEDURES No Known [...]
--- OUTSIDE RECORDS SUMMARY | 2018-09-19 20:36 | XMS REPORT ---
Author Author DEREK OBED Organization [facility] Address [address] [place] [address] Care Team Providers Care Admitting Representative Name Role Phone OBED REED Unavailable PROBLEMS Type Condition ICD9-CM Code KSL19-SB Code Onset Dates Condition Status SNOMED Code Problem Hyperlipidemia LDL goal <70 E78.5 Active 63794540 Problem Arthritis M19.90 Active 0976283 Problem Long-term use of high-risk medication Z79.899 Active 204402509 Problem Insomnia G47.00 Active 272134079 Problem Hypertension I10 Active 71221530 Problem Fibromyalgia M79.7 Active 06599181 Problem Anxiety associated with depression F41.8 Active 648909509 Problem Hypercholesterolemia E78.0 Active 54453552 Problem Chronic fatigue R53.82 Active 01328729 Problem Adjustment disorder with anxiety F43.22 Active 07042698 Problem Type 2 diabetes mellitus without complication, without long-term current use of insulin E11.9 Active 348326003 Problem Overweight (BMI 25.0-29.9) E66.3 Active 404150201 Problem Chronic maxillary sinusitis J32.0 Active 36883828 ALLERGIES Substance Reaction Event Type Date Status Tetanus Unknown Drug Allergy Oct, Active Wellbutrin chest pain Drug Allergy Oct, Active Sulfamethoxazole-Trimethoprim Unknown Drug Allergy Oct, Active Penicillin V Potassium Unknown Drug Allergy Oct, Active Lopid throat tightness Drug Allergy Oct, Active Celebrex HEADACHE Drug Allergy Oct, Active Azithromycin Unknown Drug Allergy Oct, Active ENCOUNTERS Encounter Location Date Diagnosis [facility] [address] [facility] [id number] [address] Jan, [facility] [address] [facility] [id number], [place] [address] Nov, Hyperlipidemia LDL goal <70 E78.5 [facility] [address] [address] Nov, Hyperlipidemia LDL goal <70 E78.5 [place] [address] [address] Nov, Hypercholesterolemia E78.[address] [address] Oct, Hyperlipidemia LDL goal <70 E78.5 [place] [address] [address] Oct, Type 2 diabetes mellitus without complication, without long-term current use of insulin E11.9 ; Hyperlipidemia LDL goal <70 E78.5 ; Hypertension I10 ; Fibromyalgia M79.7 and Chronic fatigue R53.[address] [address] Oct, Type 2 diabetes mellitus without complication, without long-term current use of insulin E11.9 ; Hyperlipidemia LDL goal <70 E78.5 ; Hypertension I10 ; Fibromyalgia M79.7 ; Chronic fatigue R53.82 and Overweight (BMI 25.0-29.9) E66.[address] [address] Aug, Hypertension I10 and Dyshidrotic eczema L30.[address] [address] Jun, Hyperlipidemia LDL goal <70 E78.5 [place] [address] [address] Jun, Arthritis M19.[address] [address] May, Hypertension I10 ; Anxiety associated with depression F41.8 ; Hyperlipidemia LDL goal <70 E78.5 and Chronic maxillary sinusitis J32.[address] [address] May, Acute non-recurrent maxillary sinusitis J01.00 and Sore throat J02.9 [place] [address] [place] [id number] [place] [address] May, Dysthymia F34.1 [place] [address] [place] [id number] [place] [address] Apr, Hypertension I10 [address] [address] Apr, Cough R05 ; Sore throat J02.9 and Bronchitis J40 [address] [address] Mar, Anxiety associated with depression F41.8 ; Adjustment disorder with anxiety F43.22 and Depression F32.[address] [address] Mar, [address] [address] Mar, Type 2 diabetes mellitus without complication, without long-term current use of insulin E11.9 ; Hypertension I10 ; Hyperlipidemia LDL goal <70 E78.5 ; Arthritis M19.90 ; Long-term use of high-risk medication Z79.899 and Dysthymia F34.1 [place] [id number] [place] [address] Mar, [address] [address] Mar, [place] [id number] [place] [address] Feb, [address] [address] Feb, Acute right hip pain M25.551 and Hypertension I10 [place] [id number] [place] [address] Feb, Diabetes E11.9 [id number] [address] Jan, Hypertension I10 [facility] [address] [place] [id number] [place] [address] Jan, Hypertension I10 [facility] [address] [address] [id number] [place] [address] Dec, Dysuria R30.0 [facility] [address] [id number] [place] [address] Dec, [facility] [address] [place] [address] [id number] [place] [address] Dec, Fibromyalgia M79.7 [facility] [address] [address] [id number] [place] [address] Dec, Acute recurrent frontal sinusitis J01.11 and Hypertension I10 [facility] [address] [place] [id number] [place] [address] Dec, Hypertension I10 [facility] [address] [place] [address] [id number] [place] [address] Dec, [facility] [address] [place] [address] [id number] [place] [address] Dec, Hypertension I10 [facility] [id number] [place] [address] Nov, [facility] [address] [place] [id number] [place] [address] Oct, Fibromyalgia M79.7 ; Hypertension I10 ; Depression F32.9 ; Hypercholesterolemia E78.0 ; Anxiety associated with depression F41.8 and Diabetes E11.9 [facility] [address] [id number] [place] [address] September, Essential hypertension I10 ; Diabetes E11.9 ; Anxiety associated with depression F41.8 and Hypercholesterolemia E78.0 [facility] [address] [place] [id number] [place] [address] Aug, [facility] [id number] [place] [address] Aug, Diabetes E11.9 [facility] [address] [place] [id number] [place] [address] Aug, [facility] [address] [place] [id number] [place] [address] Jul, Acute non-recurrent maxillary sinusitis J01.00 [facility] [address] [address] [id number] [place] [address] Jul, Anxiety associated with depression F41.8 [facility] [address] [place] [id number] [place] [address] Jun, Anxiety associated with depression F41.8 and Hypercholesterolemia E78.0 [facility] [address] [place] [id number] [place] [address] May, Diabetes E11.9 ; Insomnia G47.00 ; Fibromyalgia M79.7 ; Hypercholesterolemia E78.0 ; Anxiety associated with depression F41.8 and Essential hypertension I10 [facility] [address] [place] [id number] [place] [address] May, [facility] [address] [place] [address] [id number] [place] [address] May, [facility] [address] [id number] [place] [address] Mar, [facility] [address] [place] [id number] [place] [address] Mar, Hypertension I10 [facility] [address] [place] [id number] [place] [address] Feb, [facility] [address] [place] [id number] [place] [address] Feb, [facility] [address] [place] [id number] [place] [address] Feb, Anxiety associated with depression F41.8 ; Chest tightness R07.89 and Elevated blood pressure I10 [facility] [address] [place] [id number] [place] [address] Feb, Encounter for immunization Z23 ; Bronchitis J40 ; Diabetes E11.9 ; Hypertension I10 ; Insomnia G47.00 ; Hypercholesterolemia E78.0 ; Depression F32.9 and Fibromyalgia M79.7 [facility] [address] [address] Jan, Bronchitis J40 and Depression F32.9 [facility] [address] [address] Jan, Bronchitis J40 [facility] [address] [address] Dec, [place] [address] [address] Dec, [place] [address] [address] Nov, Acute non-recurrent frontal sinusitis J01.10 and Hypertension I10 [place] [address] [address] Nov, [place] [address] [address] Nov, Diabetes E11.9 ; Fibromyalgia M79.7 ; Hypertension I10 ; Insomnia G47.00 ; Depression F32.9 and Hypercholesterolemia E78.0 [place] [address] [place] [id number] [place] [address] Oct, Hypercholesterolemia E78.0 [place] [address] [address] September, [place] [address] [address] Aug, Diabetes E11.9 ; Fibromyalgia M79.7 ; Hypertension I10 ; Insomnia G47.00 ; Depression F32.9 ; Shoulder pain M25.519 ; Hypercholesterolemia E78.0 and Pain in right shoulder M25.511 [facility] [address] [address] Jul, [facility] [address] [address] Jun, Hypercholesterolemia E78.0 [facility] [address] [address] Jun, [facility] [address] [address] May, [facility] [address] [address] May, Well woman exam Z01.419 [place] [address] [address] May, Hypertension I10 ; Diabetes E11.9 ; Fibromyalgia M79.7 ; Insomnia G47.00 ; Depression F32.9 and Hypercholesterolemia E78.0 [place] [address] [place] [id number] [place] [address] Apr, [place] [address] [address] Apr, Fibromyalgia M79.7 ; Hypertension I10 ; Bronchitis J40 ; Insomnia G47.00 ; Depression F32.9 ; Shoulder pain M25.519 and Hypercholesterolemia E78.0 [place] [address] [place] [id number] [place] [address] Mar, Hyperlipemia E78.5 [place] [address] [address] Mar, Diabetes E11.9 ; Hypertension I10 ; Insomnia G47.00 ; Depression F32.9 and Shoulder pain M25.519 [place] [address] [address] Mar, [facility] [address] [address] Feb, [facility] [address] [address] Feb, Encounter for immunization Z23 ; Diabetes E11.9 ; Fibromyalgia M79.7 ; Hypertension I10 ; Bronchitis J40 and Insomnia G47.00 [facility] [address] [address] Feb, Bronchitis J40 [facility] [address] [address] Jan, Bronchitis 490 [facility] [address] [address] Aug, [facility] [address] [address] Aug, [facility] [address] [address] Jul, [facility] [address] [address] Jul, [facility] [address] [address] Jul, [facility] [address] [place] [id number] [place] [address] Jul, [facility] [address] [place] [id number] [place] [address] Jun, [facility] [address] [place] [id number] [place] [address] Jun, [facility] [address] [address] May, [facility] [address] [place] [id number] [place] [address] May, [facility] [address] [address] Apr, [facility] [place] [facility] [address] [id number] [place] [address] Apr, [facility] [place] [facility] [address] [id number] [place] [address] Apr, [facility] [place] [facility] [address] [id number] [place] [address] Apr, [facility] [place] [facility] [address] [id number] [place] [address] Apr, [facility] [place] [facility] [address] [id number] [place] [address] Apr, [facility] [place] [facility] [address] [id number] [place] [address] Feb, [facility] [place] [facility] [address] [id number] [place] [address] Feb, [facility] [place] [facility] [address] [id number] [place] [address] Jan, [facility] [place] [facility] [address] [id number] [place] [address] Jan, [facility] [place] [facility] [address] [id number] [place] [address] Dec, [facility] [place] [facility] [address] [id number] [place] [address] Dec, [facility] [place] [facility] [address] [id number] [place] [address] September, [facility] [place] [facility] [address] [id number] [place] [address] September, [facility] [place] [facility] [address] [id number] [place] [address] September, [facility] [place] [facility] [address] [id number] [place] [address] September, [facility] [place] [facility] [address] [id number] [place] [address] September, [facility] [address] [id number] [place] [address] September, [facility] [address] [id number] [place] [address] Aug, [facility] [address] [id number] [place] [address] Aug, [facility] [address] [id number] [place] [address] Jul, [facility] [address] [id number] [place] [address] Jul, [facility] [address] [id number] [place] [address] May, [facility] [address] [id number] [place] [address] May, [facility] [address] [id number] [place] [address] May, [facility] [address] [id number] [place] [address] May, [facility] [place] [facility] [address] [id number] [place] [address] May, [facility] [address] [id number] [place] [address] May, [facility] [address] [id number] [place] [address] Apr, [facility] [address] [id number] [place] [address] Apr, [facility] [address] [id number] [place] [address] Apr, [facility] [address] [id number] [place] [address] Apr, [facility] [place] [facility] [address] [id number] [place] [address] Apr, [facility] [place] [facility] [address] [id number] [place] [address] Apr, [facility] [place] [facility] [address] [id number] [place] [address] Apr, [facility] [place] [facility] [address] [id number] [place] [address] Apr, [facility] [place] [facility] [address] [id number] [place] [address] Feb, [facility] [place] [facility] [address] [id number] [place] [address] Feb, [facility] [place] [facility] [address] [id number] [place] [address] Feb, [facility] [place] [facility] [address] [id number], [place] [address] Feb, [facility] [place] [facility] [address] [id number] [place] [address] Feb, [facility] [place] [facility] [address] [id number], [place] [address] Feb, [facility] [place] [facility] [address] [id number], [place] [address] Feb, [facility] [place] [facility] [address] [id number], [place] [address] Feb, [facility] [place] [facility] [address] [id number], [place] [address] Nov, [facility] [place] [facility] [address] [id number], [place] [address] Nov, [facility] [place] [facility] [address] [id number], [place] [address] Oct, [facility] [place] [facility] [address] [id number], [place] [address] Oct, [facility] [address] [id number] [place] [address] Oct, [facility] [address] [id number] [place] [address] September, [facility] [address] [id number] [place] [address] September, [facility] [address] [id number] [place] [address] September, [facility] [address] [id number] [place] [address] September, [facility] [address] [id number] [place] [address] September, [facility] [address] [id number] [place] [address] September, [facility] [address] [id number] [place] [address] September, [facility] [address] [id number] [place] [address] September, [facility] [address] [id number] [place] [address] September, [facility] [address] [id number] [place] [address] September, [facility] [address] [id number] [place] [address] Aug, [facility] [address] [id number] [place] [address] Jul, [facility] [address] [id number] [place] [address] Jun, [facility] [address] [id number] [place] [address] Jun, [facility] [place] [facility] [address] [id number] [place] [address] May, [facility] [place] [facility] [address] [id number] [place] [address] May, [facility] [place] [facility] [address] [id number] [place] [address] Mar, [facility] [place] [facility] [address] [id number] [place] [address] Mar, [facility] [place] [facility] [address] [id number] [place] [address] Mar, [facility] [place] [facility] [address] [id number] [place] [address] Mar, [facility] [place] [facility] [address] [id number] [place] [address] Feb, [facility] [place] [facility] [address] [id number] [place] [address] Feb, [facility] [place] [facility] [address] [id number] [place] [address] Feb, [facility] [place] [facility] [address] [id number] [place] [address] Feb, [facility] [place] [facility] [address] [id number] [place] [address] Feb, [facility] [place] [facility] [address] [id number] [place] [address] Feb, [facility] [place] [facility] [address] [id number] [place] [address] Feb, [facility] [place] [facility] [address] [id number] [place] [address] 18 Jan, 2012 [facility] [place] [facility] [address] [id number] [place] [address] 14 Jan, 2012 [facility] [place] [facility] [address] [id number] [place] [address] Jan, [facility] [address] [id number] [place] [address] Dec, [facility] [address] [id number] [place] [address] Dec, [facility] [address] [facility] [id number] [place] [address] Dec, [facility] [address] [id number] [place] [address] Nov, [facility] [address] [id number] [place] [address] Oct, [facility] [address] [id number] [place] [address] Oct, [facility] [address] [id number] [address] Oct, [facility] [address] [id number], [place] [address] Oct, [facility] [address] [facility] [id number], [place] [address] Oct, [facility] [address] [id number] [address] Aug, [facility] [address] [id number] [address] Aug, [facility] [address] [facility] [id number], [place] [address] Jul, [facility] [address] [facility] [id number], [place] [address] Jun, [facility] [address] [id number][place] [id number] Jun, [facility] [place] [facility] [address] [id number] [address] May, [facility] [address] [id number] [address] May, [facility] [id number], [place] [address] May, [facility] [id number], [place] [address] May, [facility] [id number], [place] [address] May, [facility] [id number], [place] [address] Apr, [facility] [id number], [place] [address] Apr, [facility] [id number], [place] [address] Apr, [facility] [id number], [place] [address] Apr, [facility] [id number], [place] [address] Apr, [facility] [id number], [place] [address] Apr, [facility] [id number] [address] Apr, [facility] [address] [id number] [address] Apr, IMMUNIZATIONS No Known Immunizations SOCIAL HISTORY Never Assessed REASON FOR VISIT Blood Pressure-JESSIKA Floyd PLAN OF CARE Activity Details Follow Up 3 Months, prn Reason:CHM/HTN VITAL SIGNS Height 61 in 2017-10-18 Weight 146.6 lbs 2017-10-18 Temperature 97.9 degrees Fahrenheit 2017-10-18 Heart Rate 64 bpm 2017-10-18 Respiratory Rate 18 2017-10-18 BMI 27.70 kg/m2 2017-10-18 Blood pressure systolic 142 mmHg 2017-10-18 Blood pressure diastolic 92 mmHg 2017-10-18 MEDICATIONS Medication Instructions Dosage Frequency Start Date End Date Duration Status Atenolol 100MG Orally twice a day 1 tablet 12h Active Pravastatin Sodium 20 mg Orally Once a day 1 tablet 24h 27 Mar, 2015 Active Triamcinolone Acetonide 0.1 % Externally Twice a day apply thin layer to affected fingertips 12h Aug, 14 days Active MetFORMIN HCl ER 750 MG Orally Once a day 1 tablet with evening meal 24h Mar, 90 days Active Clonidine HCl 0.2 MG TAKE ONE (1) TABLET BY MOUTH THREE (3) TIMES DAILY Active Ibuprofen 800 MG 1 tablet with food or milk Three times a day Orally 30 day(s) Active Losartan Potassium 100 MG TAKE ONE TABLET BY MOUTH ONCE DAILY Active RESULTS No Results PROCEDURES No Known [...]
--- OUTSIDE RECORDS SUMMARY | 2018-09-19 20:36 | XMS REPORT ---
Author Author OBED REED Organization [facility] Address [address] [place] [address] Care Team Providers Care Barrel Charrer Name Role Phone OBED REED Unavailable PROBLEMS Type Condition ICD9-CM Code DNY11-CZ Code Onset Dates Condition Status SNOMED Code Problem Hyperlipidemia LDL goal <70 E78.5 Active 41840437 Problem Arthritis M19.90 Active 6877746 Problem Long-term use of high-risk medication Z79.899 Active 303248872 Problem Insomnia G47.00 Active 661007027 Problem Hypertension I10 Active 87691100 Problem Fibromyalgia M79.7 Active 55443577 Problem Anxiety associated with depression F41.8 Active 243146894 Problem Hypercholesterolemia E78.0 Active 49546007 Problem Chronic fatigue R53.82 Active 84165681 Problem Adjustment disorder with anxiety F43.22 Active 61404943 Problem Type 2 diabetes mellitus without complication, without long-term current use of insulin E11.9 Active 041955824 Problem Overweight (BMI 25.0-29.9) E66.3 Active 621247367 Problem Chronic maxillary sinusitis J32.0 Active 72908036 ALLERGIES No Information ENCOUNTERS Encounter Location Date Diagnosis [facility] [id number], [place] [address] Jan, [facility] [id number] [place] [address] Nov, Hyperlipidemia LDL goal <70 E78.5 [facility] [id number] [place] [address] Nov, Hyperlipidemia LDL goal <70 E78.5 [facility] [address], [place] [address] Nov, Hypercholesterolemia E78.0 [facility] [id number] [place] [address] Oct, Hyperlipidemia LDL goal <70 E78.5 [id number] [place] [address] 18 Oct, 2017 Type 2 diabetes mellitus without complication, without long-term current use of insulin E11.9 ; Hyperlipidemia LDL goal <70 E78.5 ; Hypertension I10 ; Fibromyalgia M79.7 and Chronic fatigue R53.82 [address] [address] [address] 15 Oct, 2017 Type 2 diabetes mellitus without complication, without long-term current use of insulin E11.9 ; Hyperlipidemia LDL goal <70 E78.5 ; Hypertension I10 ; Fibromyalgia M79.7 ; Chronic fatigue R53.82 and Overweight (BMI 25.0-29.9) E66.[address] [address] Aug, Hypertension I10 and Dyshidrotic eczema L30.[address] [address] 14 Jun, 2017 Hyperlipidemia LDL goal <[address] [address] Jun, Arthritis M19.90 [address] [id number] [place] [address] May, Hypertension I10 ; Anxiety associated with depression F41.8 ; Hyperlipidemia LDL goal <70 E78.5 and Chronic maxillary sinusitis J32.[address] [address] May, Acute non-recurrent maxillary sinusitis J01.00 and Sore throat J02.[address] [address] May, Dysthymia F34.[address] [address] Apr, Hypertension I10 [facility] [id number] [place] [address] Apr, Cough R05 ; Sore throat J02.9 and Bronchitis J40 [facility] [id number] [place] [address] Mar, Anxiety associated with depression F41.8 ; Adjustment disorder with anxiety F43.22 and Depression F32.9 [place] [address] [address] Mar, [place] [address] [address] Mar, Type 2 diabetes mellitus without complication, without long-term current use of insulin E11.9 ; Hypertension I10 ; Hyperlipidemia LDL goal <70 E78.5 ; Arthritis M19.90 ; Long-term use of high-risk medication Z79.899 and Dysthymia F34.1 [place] [address] [address] Mar, [place] [address] [address] Mar, [place] [id number] [place] [address] Feb, [place] [id number] [place] [address] Feb, Acute right hip pain M25.551 and Hypertension I10 [facility] [id number] [place] [address] Feb, Diabetes E11.9 [place] [address] [address] Jan, Hypertension I10 [facility] [id number] [place] [address] 12 Jan, 2017 Hypertension I10 [facility] [address] [address] Dec, Dysuria R30.0 [facility] [id number] [place] [address] Dec, [facility] [id number] [place] [address] Dec, Fibromyalgia M79.7 [facility] [id number] [place] [address] Dec, Acute recurrent frontal sinusitis J01.11 and Hypertension I10 [facility] [id number] [place] [address] Dec, Hypertension I10 [facility] [id number] [place] [address] Dec, [facility] [id number] [place] [address] Dec, Hypertension I10 [facility] [id number] [place] [address] Nov, [facility] [id number] [place] [address] Oct, Fibromyalgia M79.7 ; Hypertension I10 ; Depression F32.9 ; Hypercholesterolemia E78.0 ; Anxiety associated with depression F41.8 and Diabetes E11.9 [facility] [address] [place] [address] September, Essential hypertension I10 ; Diabetes E11.9 ; Anxiety associated with depression F41.8 and Hypercholesterolemia E78.0 [facility] [id number] [place] [address] Aug, [facility] [id number] [place] [address] Aug, Diabetes E11.9 [facility] [id number] [place] [address] Aug, [facility] [address] [place] [address] 13 Jul, 2016 Acute non-recurrent maxillary sinusitis J01.00 [place] [id number] [place] [address] Jul, Anxiety associated with depression F41.8 [place] [id number] [place] [address] 17 Jun, 2016 Anxiety associated with depression F41.8 and Hypercholesterolemia E78.0 [place] [id number] [place] [address] May, Diabetes E11.9 ; Insomnia G47.00 ; Fibromyalgia M79.7 ; Hypercholesterolemia E78.0 ; Anxiety associated with depression F41.8 and Essential hypertension I10 [place] [id number] [place] [address] May, [place] [id number] [place] [address] May, [facility] [id number] [place] [address] Mar, [place] [id number] [place] [address] Mar, Hypertension I10 [place] [id number] [place] [address] Feb, [place] [id number] [place] [address] Feb, [place] [id number] [place] [address] Feb, Anxiety associated with depression F41.8 ; Chest tightness R07.89 and Elevated blood pressure I10 [facility] [id number] [place] [address] Feb, Encounter for immunization Z23 ; Bronchitis J40 ; Diabetes E11.9 ; Hypertension I10 ; Insomnia G47.00 ; Hypercholesterolemia E78.0 ; Depression F32.9 and Fibromyalgia M79.7 [facility] [id number] [place] [address] Jan, Bronchitis J40 and Depression F32.9 [facility] [id number] [place] [address] Jan, Bronchitis J40 [facility] [address] [address] Dec, [facility] [address] [address] Dec, [facility] [address] [address] Nov, Acute non-recurrent frontal sinusitis J01.10 and Hypertension I10 [address] [address] [address] Nov, [facility] [address] [address] Nov, Diabetes E11.9 ; Fibromyalgia M79.7 ; Hypertension I10 ; Insomnia G47.00 ; Depression F32.9 and Hypercholesterolemia E78.0 [place] [id number] [place] [address] Oct, Hypercholesterolemia E78.0 [facility] [id number] [place] [address] September, [facility] [address] [address] Aug, Diabetes E11.9 ; Fibromyalgia M79.7 ; Hypertension I10 ; Insomnia G47.00 ; Depression F32.9 ; Shoulder pain M25.519 ; Hypercholesterolemia E78.0 and Pain in right shoulder M25.511 [facility] [id number] [place] [address] Jul, [facility] [address] [address] Jun, Hypercholesterolemia E78.0 [facility] [id number] [place] [address] Jun, [facility] [id number] [place] [address] May, [facility] [id number] [place] [address] May, Well woman exam Z01.419 [place] [address] [address] May, Hypertension I10 ; Diabetes E11.9 ; Fibromyalgia M79.7 ; Insomnia G47.00 ; Depression F32.9 and Hypercholesterolemia E78.0 [address] [id number] [place] [address] Apr, [place] [address] [address] Apr, Fibromyalgia M79.7 ; Hypertension I10 ; Bronchitis J40 ; Insomnia G47.00 ; Depression F32.9 ; Shoulder pain M25.519 and Hypercholesterolemia E78.0 [place] [id number] [place] [address] Mar, Hyperlipemia E78.5 [place] [id number] [place] [address] Mar, Diabetes E11.9 ; Hypertension I10 ; Insomnia G47.00 ; Depression F32.9 and Shoulder pain M25.519 [place] [id number] [place] [address] Mar, [place] [address] [address] Feb, [facility] [id number] [place] [address] Feb, Encounter for immunization Z23 ; Diabetes E11.9 ; Fibromyalgia M79.7 ; Hypertension I10 ; Bronchitis J40 and Insomnia G47.00 [facility] [address] [id number] [place] [address] 09 Feb, 2015 Bronchitis J40 [facility] [address] [facility] [id number] [place] [address] 28 Jan, 2015 Bronchitis 490 [facility] [address] [facility] [id number] [place] [address] Aug, [facility] [address] [id number] [address] Aug, [facility] [address] [facility] [id number] [place] [address] Jul, [facility] [id number], [place] [address] Jul, [facility] [address], [place] [address] Jul, [facility] [address] [facility] [id number], [place] [address] Jul, [facility] [id number], [place] [address] Jun, [facility] [id number], [place] [address] Jun, [facility] [id number], [place] [address] May, [facility] [id number], [place] [address] May, [facility] [address] [facility] [id number], [place] [address] Apr, [facility] [address] [facility] [id number], [place] [address] Apr, [facility] [id number], [place] [address] Apr, [facility] [place] [facility] [address] [facility] [id number] [place] [address] Apr, [facility] [place] [facility] [address] [id number] [place] [address] Apr, [facility] [place] [facility] [address] [id number] [place] [address] Apr, [facility] [place] [facility] [address] [id number] [place] [address] Feb, [facility] [place] [facility] [address] [id number] [place] [address] Feb, [facility] [place] [facility] [address] [id number] [place] [address] Jan, [facility] [place] [facility] [address] [id number] [place] [address] Jan, [facility] [place] [facility] [address] [id number] [place] [address] Dec, [facility] [place] [facility] [address] [id number] [place] [address] Dec, [facility] [place] [facility] [address] [id number] [place] [address] September, [facility] [place] [facility] [address] [id number] [place] [address] September, [facility] [place] [facility] [address] [id number] [place] [address] September, [facility] [place] [facility] [address] [id number] [place] [address] September, [facility] [place] [facility] [address] [id number] [place] [address] September, [facility] [place] [facility] [address] [id number] [place] [address] September, [facility] [place] [facility] [address] [id number] [place] [address] Aug, [facility] [place] [facility] [address] [id number] [place] [address] Aug, [facility] [place] [facility] [address] [id number] [place] [address] Jul, [facility] [place] [facility] [address] [id number] [place] [address] Jul, [facility] [place] [facility] [address] [id number] [place] [address] May, [facility] [place] [facility] [address] [id number] [place] [address] May, [facility] [place] [facility] [address] [id number] [place] [address] May, [facility] [place] [facility] [address] [id number] [place] [address] May, [facility] [place] [facility] [address] [id number] [place] [address] May, [facility] [place] [facility] [address] [id number] [place] [address] May, [facility] [place] [facility] [address] [id number] [place] [address] Apr, [facility] [place] [facility] [address] [id number] [place] [address] Apr, [facility] [place] [facility] [address] [id number] [place] [address] Apr, [facility] [place] [facility] [address] [id number] [place] [address] Apr, [facility] [place] [facility] [address] [id number] [place] [address] Apr, [facility] [place] [facility] [address] [id number] [place] [address] Apr, [facility] [place] [facility] [address] [id number] [place] [address] Apr, [facility] [place] [facility] [address] [id number] [place] [address] Apr, [facility] [place] [facility] [address] [id number] [place] [address] Feb, [facility] [place] [facility] [address] [id number] [place] [address] Feb, [facility] [place] [facility] [address] [id number] [place] [address] Feb, [facility] [place] [facility] [address] [id number] [place] [address] Feb, [facility] [place] [facility] [address] [id number] [place] [address] Feb, [facility] [place] [facility] [address] [id number] [place] [address] Feb, [facility] [place] [facility] [address] [id number] [place] [address] Feb, [facility] [place] [facility] [address] [id number] [place] [address] Feb, [facility] [place] [facility] [address] [id number] [place] [address] Nov, [facility] [place] [facility] [address] [id number] [place] [address] Nov, [facility] [place] [facility] [address] [id number], [place] [address] Oct, [facility] [place] [facility] [address] [id number] [place] [address] Oct, [facility] [place] [facility] [address] [id number] [place] [address] Oct, [facility] [place] [facility] [address] [id number] [place] [address] September, [facility] [place] [facility] [address] [id number] [place] [address] September, [facility] [address] [id number] [place] [address] September, [facility] [address] [id number] [place] [address] September, [facility] [address] [id number] [place] [address] September, [facility] [address] [id number] [place] [address] September, [facility] [address] [id number] [place] [address] September, [facility] [address] [id number] [place] [address] September, [facility] [address] [id number] [place] [address] September, [facility] [address] [id number] [place] [address] September, [facility] [address] [id number] [place] [address] Aug, [facility] [address] [id number] [place] [address] Jul, [facility] [address] [id number] [place] [address] Jun, [facility] [address] [id number] [place] [address] Jun, [facility] [place] [facility] [address] [id number] [place] [address] May, [facility] [place] [facility] [address] [id number] [place] [address] May, [facility] [place] [facility] [address] [id number] [place] [address] Mar, [facility] [place] [facility] [address] [id number] [place] [address] Mar, [facility] [place] [facility] [address] [id number] [place] [address] Mar, [facility] [place] [facility] [address] [facility] [id number] [place] [address] Mar, [facility] [place] [facility] [address] [id number] [place] [address] Feb, [facility] [place] [facility] [address] [id number] [place] [address] Feb, [facility] [place] [facility] [address] [id number] [place] [address] Feb, [facility] [place] [facility] [address] [id number] [place] [address] Feb, [facility] [place] [facility] [address] [id number] [place] [address] Feb, [facility] [place] [facility] [address] [id number] [place] [address] Feb, [facility] [place] [facility] [address] [id number] [place] [address] Feb, [facility] [place] [facility] [address] [id number], [place] [address] 18 Jan, 2012 [facility] [place] [facility] [address] [id number], [place] [address] 14 Jan, 2012 [facility] [place] [facility] [address] [id number] [place] [address] 10 Jan, 2012 [facility] [place] [facility] [address] [facility] [id number] [place] [address] 30 Dec, 2011 [facility] [place] [facility] [address] [id number] [place] [address] Dec, [facility] [place] [facility] [address] [id number] [place] [address] Dec, [facility] [address] [id number] [place] [address] Nov, [facility] [address] [id number] [place] [address] Oct, [facility] [address] [id number] [place] [address] Oct, [facility] [address] [id number] [place] [address] Oct, [facility] [address] [id number] [place] [address] Oct, [facility] [address] [facility] [id number] [place] [address] Oct, [facility] [id number] [place] [address] Aug, [facility] [address] [id number], [place] [address] Aug, [facility] [id number], [place] [address] Jul, [facility] [address] [id number], [place] [address] Jun, [facility] [place] [facility] [id number] [id number] Jun, [facility] [address] [id number], [place] [address] May, [facility] [address] [facility] [id number], [place] [address] May, [facility] [address] [id number], [place] [address] May, [facility] [address] [id number], [place] [address] May, [facility] [address] [id number], [place] [address] May, [facility] [address] [id number], [place] [address] Apr, [facility] [address] [id number], [place] [address] Apr, [facility] [id number], [place] [address] Apr, [facility] [id number], [place] [address] Apr, [facility] [id number], [place] [address] Apr, [facility] [id number], [place] [address] Apr, [facility] [id number], [place] [address] Apr, [facility] [address] [id number], [place] [address] Apr, IMMUNIZATIONS No Known Immunizations SOCIAL HISTORY Never Assessed REASON FOR VISIT Lab (walk-in) PLAN OF CARE VITAL SIGNS MEDICATIONS Unknown Medications RESULTS No Results PROCEDURES Procedure Date Ordered Result Body Site COMPLETE CBC W/AUTO DIFF WBC October 21, 2017 COMPREHEN METABOLIC PANEL October 21, 2017 VENIPUNCT, ROUTINE* October 21, 2017 LIPID PANEL October 21, 2017 Hemoglobin Test Send Out 0 dollar October 21, 2017 ASSAY THYROID STIM HORMONE October 21, 2017 ASSAY OF VITAMIN D October 21, 2017 INSTRUCTIONS MEDICATIONS ADMINISTERED No Known Medications MEDICAL (GENERAL) HISTORY Type Description Date Medical History Diabetes type II Medical History hypertension Medical History fibromyalgia Medical History hyperlipidemia Medical History ostoarthrtis Surgical History hysterectomy has right ovary left 1995 Surgical History shoulder surgery(right) 09/2014 Hospitalization History surgeries Hospitalization History childbirth x 2
--- OUTSIDE RECORDS SUMMARY | 2018-09-19 20:37 | XMS REPORT ---
Author Author ANNA MARIE LOMELI Organization [facility] Address [address] [place] [address] Care Team Providers Care Mechanical Detailer Name Role Phone ANNA MARIE LOMELI Unavailable PROBLEMS Type Condition ICD9-CM Code [id number] Code Onset Dates Condition Status SNOMED Code Problem Diabetes E11.9 Active 51011357 Problem Pure hypercholesterolemia E78.00 Active 074905165 Problem Anxiety associated with depression F41.8 Active 907869666 Problem Depression F32.9 Active 918046435 Problem Fibromyalgia M79.7 Active 39435115 Problem Hypertension I10 Active 56233125 Problem Insomnia G47.00 Active 328870460 Problem Bronchitis J40 Active 98738156 ALLERGIES No Known Allergies SOCIAL HISTORY No smoking Hx information available PLAN OF CARE VITAL SIGNS MEDICATIONS No Known Medications RESULTS No Results PROCEDURES No Known procedures IMMUNIZATIONS No Known Immunizations
--- OUTSIDE RECORDS SUMMARY | 2018-09-19 20:37 | XMS REPORT ---
Author Author ANNA MARIE LOMELI Organization [facility] Address [address] [place] [address] Care Team Providers Care Counter Tender Name Role Phone NISHA LOMELINETTE Unavailable PROBLEMS Type Condition ICD9-CM Code [id number] Code Onset Dates Condition Status SNOMED Code Problem Diabetes E11.9 Active 37653797 Problem Pure hypercholesterolemia E78.00 Active 398471003 Problem Anxiety associated with depression F41.8 Active 033023077 Problem Depression F32.9 Active 992078463 Problem Fibromyalgia M79.7 Active 86807065 Problem Hypertension I10 Active 73496433 Problem Insomnia G47.00 Active 092046665 Problem Bronchitis J40 Active 65500858 ALLERGIES Substance Reaction Event Type Date Status Tetanus Unknown Drug Allergy May, Active Sulfacetamide Sodium Unknown Drug Allergy May, Active Penicillin G Potassium Unknown Drug Allergy May, Active SOCIAL HISTORY No smoking Hx information available PLAN OF CARE Activity Details Follow Up 3 Months Reason:htn, lipid VITAL SIGNS Height 61 in 2016-06-04 Weight 137.1 lbs 2016-06-04 Temperature 98.1 degrees Fahrenheit 2016-06-04 Heart Rate 98 bpm 2016-06-04 Respiratory Rate 22 2016-06-04 BMI 25.90 kg/m2 2016-06-04 Blood pressure systolic 142 mmHg 2016-06-04 Blood pressure diastolic 92 mmHg 2016-06-04 MEDICATIONS Medication Instructions Dosage Frequency Start Date End Date Duration Status Toprol XL 100 MG Orally Once a day 2 tablets 24h May, Active Cymbalta 60 mg Orally Once a day 1 capsule 24h Feb, Active Lopid 600 MG Orally Twice a day 1 tablet 12h Mar, Active metformin 850 mg take 1 tablet 2 times per day with morning and evening meals 24h May, Active Losartan Potassium 100 mg Orally Once a day TAKE ONE TABLET BY MOUTH DAILY 24h Active Clonidine HCl 0.1 MG Orally 2 times a day 1 tablet 12h Active Pravastatin Sodium 20 mg Orally Once a day 1 tablet 24h Mar, Active Ibuprofen 800 MG Orally Three times a day 1 tablet 8h Active RESULTS Name Result Date Reference Range A1C (IN HOUSE) 2016-06-04 A1C IN HOUSE 4.8 4.3 - 5.6 % Previous A1c 5.2 Lot [id number] Exp date 03/2018 MICROALBUMIN, URINE (IN HOUSE) 2016-06-04 MICROALBUMIN normal Lot # [id number] Exp date 05/2017 Clarity clear Color yellow ALB 30 CRE 200 A:C (IN HOUSE) <30 Control + Control Lot # Exp date CBC 2016-06-04 WBC 8.1 3.4-10.8 RBC 4.36 3.77-5.28 Hemoglobin 13.8 11.1-15.9 Hematocrit 40.5 34.0-46.6 MCV 93 79-97 MCH 31.7 26.6-33.0 MCHC 34.1 31.5-35.7 RDW 13.4 12.3-15.4 Platelets 229 150-379 Neutrophils 61 Lymphs 29 Monocytes 6 Eos 4 Basos 0 Neutrophils (Absolute) 4.9 1.4-7.0 Lymphs (Absolute) 2.4 0.7-3.1 Monocytes(Absolute) 0.5 0.1-0.9 Eos (Absolute) 0.3 0.0-0.4 Baso (Absolute) 0.0 0.0-0.2 Immature Granulocytes 0 Immature Grans (Abs) 0.0 0.0-0.1 LIPID PANEL 2016-06-04 Cholesterol, Total 150 100-199 Triglycerides 138 0-149 HDL Cholesterol 31 >39 VLDL Cholesterol Chung 28 5-40 LDL Cholesterol Calc 91 0-99 Comment: CMP 2016-06-04 Glucose, Serum 90 65-99 BUN 12 8-27 Creatinine, Serum 0.68 0.57-1.00 eGFR If NonAfricn Am 93 >59 eGFR If Africn Am 108 >59 BUN/Creatinine Ratio 18 11-26 Sodium, Serum 140 134-144 Potassium, Serum 4.6 3.5-5.2 Chloride, Serum 101 96-106 Carbon Dioxide, Total 23 18-29 Calcium, Serum 9.6 8.7-10.3 Protein, Total, Serum 6.7 6.0-8.5 Albumin, Serum 4.7 3.6-4.8 Globulin, Total 2.0 1.5-4.5 A/G Ratio 2.4 1.1-2.5 Bilirubin, Total 0.6 0.0-1.2 Alkaline Phosphatase, S 63 39-117 AST (SGOT) 21 0-40 ALT (SGPT) 16 0-32 PROCEDURES Procedure Date Ordered Related Diagnosis Body Site GLYCATED HEMOGLOBIN TEST Jun 04, 2016 MICROALBUMIN, SEMIQUANT Jun 04, 2016 VENIPUNCT, ROUTINE* Jun 04, 2016 LIPID PANEL Jun 04, 2016 COMPLETE CBC W/AUTO DIFF WBC Jun 04, 2016 Office Visit, Est Pt., Level 4 Jun 04, 2016 COMPREHEN METABOLIC PANEL Jun 04, 2016 IMMUNIZATIONS No Known Immunizations
--- OUTSIDE RECORDS SUMMARY | 2018-09-19 20:37 | XMS REPORT ---
Author Author REEDRUDY HahnELE Organization [facility] Address [address] [place] [address] Care Team Providers Care Tumblers Supervisor Name Role Phone OBED REED Unavailable PROBLEMS Type Condition ICD9-CM Code [id number]-ER Code Onset Dates Condition Status SNOMED Code Problem Hyperlipidemia LDL goal <70 E78.5 Active 51449969 Problem Arthritis M19.90 Active 7670086 Problem Long-term use of high-risk medication Z79.899 Active 088962955 Problem Insomnia G47.00 Active 745190353 Problem Hypertension I10 Active 00298198 Problem Fibromyalgia M79.7 Active 61269198 Problem Anxiety associated with depression F41.8 Active 088778250 Problem Hypercholesterolemia E78.0 Active 66445286 Problem Chronic fatigue R53.82 Active 01462630 Problem Adjustment disorder with anxiety F43.22 Active 06308517 Problem Type 2 diabetes mellitus without complication, without long-term current use of insulin E11.9 Active 138082363 Problem Overweight (BMI 25.0-29.9) E66.3 Active 078381000 Problem Chronic maxillary sinusitis J32.0 Active 64160504 ALLERGIES Substance Reaction Event Type Date Status Tetanus Unknown Drug Allergy Aug, Active Sulfamethoxazole-Trimethoprim Unknown Drug Allergy Aug, Active Penicillin V Potassium Unknown Drug Allergy Aug, Active Celebrex HEADACHE Drug Allergy Aug, Active Azithromycin Unknown Drug Allergy Aug, Active ENCOUNTERS Encounter Location Date Diagnosis [facility] [address] [facility] [id number] [address] Jan, [facility] [address] [facility] [id number] [address] Nov, Hyperlipidemia LDL goal <70 E78.5 [facility] [address] [facility] [id number] [address] Nov, Hyperlipidemia LDL goal <70 E78.5 [address] [place] [address] 05 Nov, 2017 Hypercholesterolemia E78.0 [place] [id number] [place] [address] Oct, Hyperlipidemia LDL goal <[address] [address] 18 Oct, 2017 Type 2 diabetes mellitus without complication, without long-term current use of insulin E11.9 ; Hyperlipidemia LDL goal <70 E78.5 ; Hypertension I10 ; Fibromyalgia M79.7 and Chronic fatigue R53.[address] [address] 15 Oct, 2017 Type 2 diabetes mellitus without complication, without long-term current use of insulin E11.9 ; Hyperlipidemia LDL goal <70 E78.5 ; Hypertension I10 ; Fibromyalgia M79.7 ; Chronic fatigue R53.82 and Overweight (BMI 25.0-29.9) E66.3 [place] [id number] [place] [address] Aug, Hypertension I10 and Dyshidrotic eczema L30.1 [place] [id number] [place] [address] 14 Jun, 2017 Hyperlipidemia LDL goal <70 E78.5 [place] [id number] [place] [address] Jun, Arthritis M19.90 [place] [id number] [place] [address] May, Hypertension I10 ; Anxiety associated with depression F41.8 ; Hyperlipidemia LDL goal <70 E78.5 and Chronic maxillary sinusitis J32.0 [place] [id number] [place] [address] May, Acute non-recurrent maxillary sinusitis J01.00 and Sore throat J02.[address] [place] [address] May, Dysthymia F34.1 [place] [address] [address] Apr, Hypertension I10 [place] [address] [address] Apr, Cough R05 ; Sore throat J02.9 and Bronchitis J40 [place] [address] [address] Mar, Anxiety associated with depression F41.8 ; Adjustment disorder with anxiety F43.22 and Depression F32.9 [place] [address] [address] Mar, [place] [address] [address] Mar, Type 2 diabetes mellitus without complication, without long-term current use of insulin E11.9 ; Hypertension I10 ; Hyperlipidemia LDL goal <70 E78.5 ; Arthritis M19.90 ; Long-term use of high-risk medication Z79.899 and Dysthymia F34.1 [place] [address] [address] Mar, [place] [address] [address] Mar, [place] [address] [address] Feb, [place] [address] [address] Feb, Acute right hip pain M25.551 and Hypertension I10 [place] [address] [address] Feb, Diabetes E11.9 [place] [address] [address] Jan, Hypertension I10 [facility] [address] [address] Jan, Hypertension I10 [facility] [address] [place] [id number] [place] [address] Dec, Dysuria R30.0 [facility] [address] [address] Dec, [facility] [address] [place] [id number] [place] [address] Dec, Fibromyalgia M79.7 [facility] [address] [place] [id number] [place] [address] Dec, Acute recurrent frontal sinusitis J01.11 and Hypertension I10 [facility] [address] [place] [id number] [place] [address] Dec, Hypertension I10 [facility] [address] [place] [id number] [place] [address] Dec, [facility] [address] [place] [address] Dec, Hypertension I10 [facility] [address] [place] [address] Nov, [facility] [address] [address] Oct, Fibromyalgia M79.7 ; Hypertension I10 ; Depression F32.9 ; Hypercholesterolemia E78.0 ; Anxiety associated with depression F41.8 and Diabetes E11.9 [facility] [address] [address] September, Essential hypertension I10 ; Diabetes E11.9 ; Anxiety associated with depression F41.8 and Hypercholesterolemia E78.0 [facility] [address] [address] Aug, [facility] [address] [place] [id number] [place] [address] Aug, Diabetes E11.9 [facility] [address] [address] Aug, [facility] [address] [place] [id number] [place] [address] Jul, Acute non-recurrent maxillary sinusitis J01.00 [facility] [address] [place] [id number] [place] [address] Jul, Anxiety associated with depression F41.8 [facility] [address] [place] [id number] [place] [address] Jun, Anxiety associated with depression F41.8 and Hypercholesterolemia E78.0 [facility] [address] [place] [id number] [place] [address] May, Diabetes E11.9 ; Insomnia G47.00 ; Fibromyalgia M79.7 ; Hypercholesterolemia E78.0 ; Anxiety associated with depression F41.8 and Essential hypertension I10 [facility] [address] [address] May, [facility] [address] [place] [id number] [place] [address] May, [facility] [address] [place] [address] Mar, [facility] [address] [place] [address] Mar, Hypertension I10 [facility] [address] [address] Feb, [facility] [address] [place] [id number] [place] [address] Feb, [facility] [address] [place] [id number] [place] [address] Feb, Anxiety associated with depression F41.8 ; Chest tightness R07.89 and Elevated blood pressure I10 [facility] [address] [address] 11 Feb, 2016 Encounter for immunization Z23 ; Bronchitis J40 ; Diabetes E11.9 ; Hypertension I10 ; Insomnia G47.00 ; Hypercholesterolemia E78.0 ; Depression F32.9 and Fibromyalgia M79.7 [facility] [address] [address] 27 Jan, 2016 Bronchitis J40 and Depression F32.9 [facility] [address] [address] Jan, Bronchitis J40 [place] [address] [address] Dec, [place] [address] [address] Dec, [place] [address] [address] Nov, Acute non-recurrent frontal sinusitis J01.10 and Hypertension I10 [place] [address] [address] Nov, [place] [address] [address] Nov, Diabetes E11.9 ; Fibromyalgia M79.7 ; Hypertension I10 ; Insomnia G47.00 ; Depression F32.9 and Hypercholesterolemia E78.0 [place] [address] [place] [id number] [place] [address] Oct, Hypercholesterolemia E78.0 [place] [address] [address] September, [place] [address] [address] Aug, Diabetes E11.9 ; Fibromyalgia M79.7 ; Hypertension I10 ; Insomnia G47.00 ; Depression F32.9 ; Shoulder pain M25.519 ; Hypercholesterolemia E78.0 and Pain in right shoulder M25.511 [facility] [address] [place] [address] Jul, [facility] [address] [address] Jun, Hypercholesterolemia E78.0 [facility] [address] [place] [id number] [place] [address] Jun, [facility] [address] [address] May, [place] [address] [place] [id number] [place] [address] May, Well woman exam Z01.419 [place] [address] [place] [id number] [place] [address] May, Hypertension I10 ; Diabetes E11.9 ; Fibromyalgia M79.7 ; Insomnia G47.00 ; Depression F32.9 and Hypercholesterolemia E78.0 [place] [address] [place] [id number] [place] [address] Apr, [place] [address] [address] Apr, Fibromyalgia M79.7 ; Hypertension I10 ; Bronchitis J40 ; Insomnia G47.00 ; Depression F32.9 ; Shoulder pain M25.519 and Hypercholesterolemia E78.0 [place] [address] [place] [id number] [place] [address] Mar, Hyperlipemia E78.5 [place] [address] [place] [id number] [place] [address] Mar, Diabetes E11.9 ; Hypertension I10 ; Insomnia G47.00 ; Depression F32.9 and Shoulder pain M25.519 [place] [address] [place] [id number] [place] [address] Mar, [place] [address] [place] [id number] [place] [address] Feb, [facility] [address] [place] [id number] [place] [address] Feb, Encounter for immunization Z23 ; Diabetes E11.9 ; Fibromyalgia M79.7 ; Hypertension I10 ; Bronchitis J40 and Insomnia G47.00 [facility] [address] [place] [id number] [place] [address] 09 Feb, 2015 Bronchitis J40 [facility] [address] [address] Jan, Bronchitis 490 [facility] [address] [place] [id number] [place] [address] Aug, [facility] [address] [place] [id number] [place] [address] Aug, [facility] [address] [place] [id number] [place] [address] Jul, [facility] [address] [place] [id number] [place] [address] Jul, [facility] [address] [place] [id number] [place] [address] Jul, [facility] [address] [place] [id number] [place] [address] Jul, [facility] [address] [place] [id number] [place] [address] Jun, [facility] [address] [place] [id number] [place] [address] Jun, [facility] [address] [place] [id number] [place] [address] May, [facility] [address] [place] [id number] [place] [address] May, [facility] [address] [place] [address] Apr, [facility] [address] [place] [address] Apr, [facility] [place] [facility] [address] [id number] [place] [address] Apr, [facility] [place] [facility] [address] [id number] [place] [address] Apr, [facility] [place] [facility] [address] [id number] [place] [address] Apr, [facility] [place] [facility] [address] [id number] [place] [address] Apr, [facility] [place] [facility] [address] [id number] [place] [address] Feb, [facility] [place] [facility] [address] [id number] [place] [address] Feb, [facility] [place] [facility] [address] [id number] [place] [address] Jan, [facility] [place] [facility] [address] [id number] [place] [address] Jan, [facility] [place] [facility] [address] [id number] [place] [address] Dec, [facility] [place] [facility] [address] [id number] [place] [address] Dec, [facility] [place] [facility] [address] [id number] [place] [address] September, [facility] [place] [facility] [address] [id number] [place] [address] September, [facility] [place] [facility] [address] [id number] [place] [address] September, [facility] [place] [facility] [address] [id number] [place] [address] September, [facility] [place] [facility] [address] [id number] [place] [address] September, [facility] [place] [facility] [address] [id number] [place] [address] September, [facility] [place] [facility] [address] [id number] [place] [address] Aug, [facility] [place] [facility] [address] [id number] [place] [address] Aug, [facility] [place] [facility] [address] [id number] [place] [address] Jul, [facility] [place] [facility] [address] [id number] [place] [address] Jul, [facility] [place] [facility] [address] [id number] [place] [address] May, [facility] [place] [facility] [address] [id number] [place] [address] May, [facility] [place] [facility] [address] [id number] [place] [address] May, [facility] [place] [facility] [address] [id number] [place] [address] May, [facility] [place] [facility] [address] [id number] [place] [address] May, [facility] [place] [facility] [address] [id number] [place] [address] May, [facility] [place] [facility] [address] [id number] [place] [address] Apr, [facility] [place] [facility] [address] [id number] [place] [address] Apr, [facility] [place] [facility] [address] [id number] [place] [address] Apr, [facility] [place] [facility] [address] [id number] [place] [address] Apr, [facility] [place] [facility] [address] [id number] [place] [address] 16 Apr, 2013 [facility] [place] [facility] [address] [id number] [place] [address] 16 Apr, 2013 [facility] [place] [facility] [address] [id number] [place] [address] Apr, [facility] [place] [facility] [address] [id number] [place] [address] Apr, [facility] [place] [facility] [address] [id number] [place] [address] Feb, [facility] [place] [facility] [address] [id number] [place] [address] Feb, [facility] [place] [facility] [address] [id number] [place] [address] Feb, [facility] [place] [facility] [address] [id number] [place] [address] Feb, [facility] [place] [facility] [address] [id number] [place] [address] Feb, [facility] [place] [facility] [address] [id number] [place] [address] Feb, [facility] [place] [facility] [address] [id number] [place] [address] Feb, [facility] [place] [facility] [address] [id number] [address] Feb, [facility] [place] [facility] [address] [id number], [place] [address] Nov, [facility] [place] [facility] [address] [id number] [place] [address] Nov, [facility] [place] [facility] [address] [id number], [place] [address] Oct, [facility] [place] [facility] [address] [id number] [place] [address] Oct, [facility] [place] [facility] [address] [id number] [place] [address] Oct, [facility] [place] [address] [id number] [place] [address] September, [facility] [address] [id number] [place] [address] September, [facility] [place] [address] [id number] [place] [address] September, [facility] [address] [id number] [place] [address] September, [facility] [address] [id number] [place] [address] September, [facility] [address] [id number] [place] [address] September, [facility] [place] [address] [id number] [place] [address] September, [facility] [place] [address] [id number] [place] [address] September, [facility] [address] [id number] [place] [address] September, [facility] [place] [address] [id number] [place] [address] September, [facility] [place] [address] [id number] [place] [address] Aug, [facility] [address] [id number] [place] [address] Jul, [facility] [address] [id number] [place] [address] Jun, [facility] [address] [id number] [place] [address] Jun, [facility] [address] [id number] [place] [address] May, [facility] [place] [facility] [address] [id number] [place] [address] May, [facility] [place] [facility] [address] [id number] [place] [address] Mar, [facility] [place] [facility] [address] [id number] [place] [address] Mar, [facility] [place] [facility] [address] [id number] [place] [address] Mar, [facility] [place] [facility] [address] [id number] [place] [address] Mar, [facility] [place] [facility] [address] [id number] [place] [address] Feb, [facility] [place] [facility] [address] [id number] [place] [address] Feb, [facility] [place] [facility] [address] [id number], [place] [address] Feb, [facility] [place] [facility] [address] [id number] [place] [address] Feb, [facility] [place] [facility] [address] [id number], [place] [address] Feb, [facility] [place] [facility] [address] [id number], [place] [address] Feb, [facility] [place] [facility] [address] [id number], [place] [address] Feb, [facility] [place] [facility] [address] [id number] [place] [address] 18 Jan, 2012 [facility] [place] [facility] [address] [id number], [place] [address] 14 Jan, 2012 [facility] [place] [facility] [address] [id number], [place] [address] 10 Jan, 2012 [facility] [place] [facility] [address] [id number], [place] [address] Dec, [facility] [place] [facility] [address] [id number] [place] [address] Dec, [facility] [place] [facility] [address] [facility] [id number] [address] Dec, [facility] [address] [id number] [place] [address] Nov, [facility] [place] [facility] [address] [id number] [place] [address] Oct, [facility] [place] [facility] [address] [id number] [place] [address] Oct, [facility] [place] [facility] [address] [id number] [place] [address] Oct, [facility] [address] [id number], [place] [address] Oct, [facility] [address] [id number][place] [address] Oct, [facility] [address] [id number] [address] Aug, [facility] [address] [id number], [place] [address] Aug, [facility] [place] [facility] [id number], [place] [address] Jul, [facility] [place] [facility] [address] [facility] [id number][place] [address] Jun, [facility] [address] [id number][place] [id number] Jun, [facility] [place] [facility] [address] [id number], [place] [address] May, [facility] [place] [facility] [address] [id number], [place] [address] May, [facility] [place] [facility] [address] [id number], [place] [address] May, [facility] [id number], [place] [address] May, [facility] [id number], [place] [address] May, [facility] [id number], [place] [address] Apr, [facility] [id number], [place] [address] Apr, [facility] [id number] [place] [address] Apr, [facility] [id number], [place] [address] Apr, [facility] [id number] [place] [address] Apr, [facility] [id number], [place] [address] Apr, [facility] [id number], [place] [address] Apr, [facility] [id number], [place] [address] Apr, IMMUNIZATIONS No Known Immunizations SOCIAL HISTORY Never Assessed REASON FOR VISIT bilateral hands have cracked, redness and swelling. Bashri RN PLAN OF CARE Activity Details Follow Up 4 Weeks Reason:f/u HTN VITAL SIGNS Height 61 in 2017-08-29 Weight 144.9 lbs 2017-08-29 Temperature 98.2 degrees Fahrenheit 2017-08-29 Heart Rate 83 bpm 2017-08-29 Respiratory Rate 18 2017-08-29 BMI 27.38 kg/m2 2017-08-29 Blood pressure systolic 180 mmHg 2017-08-29 Blood pressure diastolic 118 mmHg 2017-08-29 MEDICATIONS Medication Instructions Dosage Frequency Start Date End Date Duration Status Clonidine HCl 0.2 MG Orally 3 times a day 1 tablet 8h Aug, 30 day(s) Active Triamcinolone Acetonide 0.1 % Externally Twice a day apply thin layer to affected fingertips 12h Aug, 14 days Active MetFORMIN HCl ER 750 MG Orally Once a day 1 tablet with evening meal 24h Mar, 180 days Active Atenolol 100MG Orally twice a day 1 tablet 12h Active Pravastatin Sodium 20 mg Orally Once a day 1 tablet 24h Mar, 180 days Active Clonidine HCl 0.1 MG TAKE ONE TABLET BY MOUTH TWICE DAILY 90 Active Ibuprofen 800 MG 1 tablet with food or milk Three times a day Orally 30 day(s) 30 Active Losartan Potassium 100 MG TAKE ONE TABLET BY MOUTH ONCE DAILY 30 Active Lopid 600 MG Orally Twice a day 1 tablet 12h Mar, 90 days Active RESULTS No Results PROCEDURES No [...]
--- OUTSIDE RECORDS SUMMARY | 2018-09-19 20:37 | XMS REPORT ---
Author Author LALITA ARZATE Organization [facility] Address [address] [place] [address] Care Team Providers Care Board Liner Operator Name Role Phone LALITA ARZATE Unavailable PROBLEMS Type Condition ICD9-CM Code CIR29-RB Code Onset Dates Condition Status SNOMED Code Problem Anxiety associated with depression F41.8 Active 088007017 Problem Long-term use of high-risk medication Z79.899 Active 080391137 Problem Hyperlipidemia LDL goal <70 E78.5 Active 85772562 Problem Insomnia G47.00 Active 909689263 Problem Hypertension I10 Active 82300969 Problem Fibromyalgia M79.7 Active 30787600 Problem Chronic fatigue R53.82 Active 86671836 Problem Overweight (BMI 25.0-29.9) E66.3 Active 562365663 Problem Type 2 diabetes mellitus without complication, without long-term current use of insulin E11.9 Active 403551204 Problem Arthritis M19.90 Active 6800122 Problem Chronic maxillary sinusitis J32.0 Active 76910844 Problem Adjustment disorder with anxiety F43.22 Active 50024444 ALLERGIES Substance Reaction Event Type Date Status Tetanus Unknown Drug Allergy May, Active Sulfamethoxazole-Trimethoprim Unknown Drug Allergy May, Active Penicillin V Potassium Unknown Drug Allergy May, Active Celebrex HEADACHE Drug Allergy May, Active Azithromycin Unknown Drug Allergy May, Active ENCOUNTERS Encounter Location Date Diagnosis [facility] [address] [facility] [id number] [address] Oct, Hyperlipidemia LDL goal <70 E78.5 [facility] [address] [id number] [address] Oct, Type 2 diabetes mellitus without complication, without long-term current use of insulin E11.9 ; Hyperlipidemia LDL goal <70 E78.5 ; Hypertension I10 ; Fibromyalgia M79.7 and Chronic fatigue R53.82 [id number] [place] [address] 15 Oct, 2017 Type 2 diabetes mellitus without complication, without long-term current use of insulin E11.9 ; Hyperlipidemia LDL goal <70 E78.5 ; Hypertension I10 ; Fibromyalgia M79.7 ; Chronic fatigue R53.82 and Overweight (BMI 25.0-29.9) E66.[address] [address] Aug, Hypertension I10 and Dyshidrotic eczema L30.[address] [address] 14 Jun, 2017 Hyperlipidemia LDL goal <[address] [address] Jun, Arthritis M19.[address] [address] May, Hypertension I10 ; Anxiety associated with depression F41.8 ; Hyperlipidemia LDL goal <70 E78.5 and Chronic maxillary sinusitis J32.[address] [address] May, Acute non-recurrent maxillary sinusitis J01.00 and Sore throat J02.[address] [address] May, Dysthymia F34.[address] [address] Apr, Hypertension I10 [address] [address] Apr, Cough R05 ; Sore throat J02.9 and Bronchitis J40 [address] [address] Mar, Anxiety associated with depression F41.8 ; Adjustment disorder with anxiety F43.22 and Depression F32.9 [facility] [id number] [place] [address] Mar, [facility] [address] [address] Mar, Type 2 diabetes mellitus without complication, without long-term current use of insulin E11.9 ; Hypertension I10 ; Hyperlipidemia LDL goal <70 E78.5 ; Arthritis M19.90 ; Long-term use of high-risk medication Z79.899 and Dysthymia F34.1 [address] [address] [address] Mar, [address] [address] [address] Mar, [address] [address] [address] Feb, [address] [address] [address] Feb, Acute right hip pain M25.551 and Hypertension I10 [address] [address] [address] Feb, Diabetes E11.9 [place] [id number] [place] [address] Jan, Hypertension I10 [address] [place] [address] [address] Jan, Hypertension I10 [facility] [id number] [place] [address] Dec, Dysuria R30.0 [address] [place] [address] [address] Dec, [place] [address] [address] Dec, Fibromyalgia M79.7 [place] [address] [address] [place] [address] 14 Dec, 2016 Acute recurrent frontal sinusitis J01.11 and Hypertension I10 [facility] [id number] [place] [address] Dec, Hypertension I10 [facility] [id number] [place] [address] Dec, [facility] [id number] [place] [address] Dec, Hypertension I10 [facility] [id number] [place] [address] Nov, [address] [id number] [place] [address] Oct, Fibromyalgia M79.7 ; Hypertension I10 ; Depression F32.9 ; Hypercholesterolemia E78.0 ; Anxiety associated with depression F41.8 and Diabetes E11.9 [address] [id number] [place] [address] September, Essential hypertension I10 ; Diabetes E11.9 ; Anxiety associated with depression F41.8 and Hypercholesterolemia E78.0 [place] [id number] [place] [address] Aug, [facility] [id number] [place] [address] Aug, Diabetes E11.9 [facility] [id number] [place] [address] Aug, [facility] [id number] [place] [address] Jul, Acute non-recurrent maxillary sinusitis J01.00 [facility] [id number] [place] [address] 06 Jul, 2016 Anxiety associated with depression F41.8 [place] [id number] [place] [address] Jun, Anxiety associated with depression F41.8 and Hypercholesterolemia E78.0 [facility] [address] [address] May, Diabetes E11.9 ; Insomnia G47.00 ; Fibromyalgia M79.7 ; Hypercholesterolemia E78.0 ; Anxiety associated with depression F41.8 and Essential hypertension I10 [place] [address] [address] May, [facility] [address] [address] May, [facility] [address] [address] Mar, [place] [address] [address] Mar, Hypertension I10 [facility] [address] [address] Feb, [facility] [address] [address] Feb, [facility] [address] [address] Feb, Anxiety associated with depression F41.8 ; Chest tightness R07.89 and Elevated blood pressure I10 [place] [address] [address] Feb, Encounter for immunization Z23 ; Bronchitis J40 ; Diabetes E11.9 ; Hypertension I10 ; Insomnia G47.00 ; Hypercholesterolemia E78.0 ; Depression F32.9 and Fibromyalgia M79.7 [facility] [address] [address] Jan, Bronchitis J40 and Depression F32.9 [facility] [id number] [place] [address] Jan, Bronchitis J40 [facility] [address] [place] [address] Dec, [facility] [id number] [place] [address] Dec, [facility] [id number] [place] [address] Nov, Acute non-recurrent frontal sinusitis J01.10 and Hypertension I10 [facility] [address] [address] Nov, [facility] [id number] [place] [address] Nov, Diabetes E11.9 ; Fibromyalgia M79.7 ; Hypertension I10 ; Insomnia G47.00 ; Depression F32.9 and Hypercholesterolemia E78.0 [facility] [id number] [place] [address] Oct, Hypercholesterolemia E78.0 [facility] [id number] [place] [address] September, [facility] [id number] [place] [address] Aug, Diabetes E11.9 ; Fibromyalgia M79.7 ; Hypertension I10 ; Insomnia G47.00 ; Depression F32.9 ; Shoulder pain M25.519 ; Hypercholesterolemia E78.0 and Pain in right shoulder M25.511 [facility] [id number] [place] [address] Jul, [facility] [id number] [place] [address] Jun, Hypercholesterolemia E78.0 [facility] [id number] [place] [address] Jun, [facility] [id number] [place] [address] May, [facility] [id number] [place] [address] May, Well woman exam Z01.[address] [address] May, Hypertension I10 ; Diabetes E11.9 ; Fibromyalgia M79.7 ; Insomnia G47.00 ; Depression F32.9 and Hypercholesterolemia E78.[address] [address] Apr, [place] [address] [address] Apr, Fibromyalgia M79.7 ; Hypertension I10 ; Bronchitis J40 ; Insomnia G47.00 ; Depression F32.9 ; Shoulder pain M25.519 and Hypercholesterolemia E78.[address] [address] Mar, Hyperlipemia E78.[address] [address] Mar, Diabetes E11.9 ; Hypertension I10 ; Insomnia G47.00 ; Depression F32.9 and Shoulder pain M25.[address] [address] Mar, [address] [address] Feb, [address] [address] Feb, Diabetes E11.9 ; Encounter for immunization Z23 ; Fibromyalgia M79.7 ; Hypertension I10 ; Bronchitis J40 and Insomnia G47.[address] [address] Feb, Bronchitis J40 [address] [address] Jan, Bronchitis [address] [address] 14 Aug, 2014 [facility] [place] [facility] [address] [id number] [place] [address] 13 Aug, 2014 [facility] [place] [facility] [address] [id number] [place] [address] Jul, [facility] [place] [facility] [address] [id number] [place] [address] Jul, [facility] [place] [facility] [address] [id number] [place] [address] Jul, [facility] [place] [facility] [address] [id number] [place] [address] Jul, [facility] [place] [facility] [address] [id number] [place] [address] Jun, [facility] [place] [facility] [address] [id number] [place] [address] Jun, [facility] [place] [facility] [address] [id number] [place] [address] May, [facility] [place] [facility] [address] [id number] [place] [address] May, [facility] [place] [facility] [address] [id number] [place] [address] Apr, [facility] [place] [facility] [address] [id number] [place] [address] Apr, [facility] [place] [facility] [address] [id number] [place] [address] Apr, [facility] [place] [facility] [address] [id number] [place] [address] Apr, [facility] [place] [facility] [address] [id number] [place] [address] Apr, [facility] [place] [facility] [address] [id number] [place] [address] Apr, [facility] [place] [facility] [address] [id number] [place] [address] Feb, [facility] [place] [facility] [address] [id number] [place] [address] Feb, [facility] [place] [facility] [address] [id number] [place] [address] Jan, [facility] [place] [facility] [address] [id number] [place] [address] Jan, [facility] [place] [facility] [address] [id number] [place] [address] Dec, [facility] [place] [facility] [address] [id number] [place] [address] Dec, [facility] [place] [facility] [address] [id number] [place] [address] September, [facility] [place] [facility] [address] [id number] [place] [address] September, [facility] [place] [facility] [address] [id number] [place] [address] September, [facility] [place] [facility] [address] [id number] [place] [address] September, [facility] [place] [facility] [address] [id number] [place] [address] September, [facility] [place] [facility] [address] [id number] [place] [address] September, [facility] [place] [facility] [address] [id number] [place] [address] Aug, [facility] [place] [facility] [address] [id number] [place] [address] Aug, [facility] [place] [facility] [address] [id number] [place] [address] Jul, [facility] [place] [facility] [address] [id number] [place] [address] Jul, [facility] [place] [facility] [address] [id number] [place] [address] May, [facility] [address] [id number] [place] [address] May, [facility] [address] [id number] [place] [address] May, [facility] [address] [id number] [place] [address] May, [facility] [address] [id number] [place] [address] May, [facility] [address] [id number] [place] [address] May, [facility] [address] [id number] [place] [address] Apr, [facility] [address] [id number] [place] [address] Apr, [facility] [address] [id number] [place] [address] Apr, [facility] [address] [id number] [place] [address] Apr, [facility] [address] [id number] [place] [address] 16 Apr, 2013 [facility] [address] [id number] [place] [address] Apr, [facility] [place] [facility] [address] [id number] [place] [address] Apr, [facility] [place] [facility] [address] [id number] [place] [address] Apr, [facility] [place] [facility] [address] [id number] [place] [address] Feb, [facility] [place] [facility] [address] [id number] [place] [address] Feb, [facility] [place] [facility] [address] [id number] [place] [address] Feb, [facility] [place] [facility] [address] [id number] [place] [address] Feb, [facility] [place] [facility] [address] [id number] [place] [address] Feb, [facility] [place] [facility] [address] [id number] [place] [address] Feb, [facility] [place] [facility] [address] [id number] [place] [address] Feb, [facility] [place] [facility] [address] [id number] [place] [address] Feb, [facility] [place] [facility] [address] [id number] [place] [address] Nov, [facility] [place] [facility] [address] [id number] [place] [address] Nov, [facility] [place] [facility] [address] [id number] [place] [address] Oct, [facility] [place] [facility] [address] [id number] [place] [address] Oct, [facility] [place] [facility] [address] [id number] [place] [address] Oct, [facility] [place] [facility] [address] [id number] [place] [address] September, [facility] [place] [facility] [address] [id number] [place] [address] September, [facility] [place] [facility] [address] [id number] [place] [address] September, [facility] [place] [facility] [address] [id number] [place] [address] September, [facility] [place] [facility] [address] [id number] [place] [address] September, [facility] [address] [id number] [place] [address] September, [facility] [address] [id number] [place] [address] September, [facility] [address] [id number] [place] [address] September, [facility] [address] [id number] [place] [address] September, [facility] [address] [id number] [place] [address] September, [facility] [address] [id number] [place] [address] Aug, [facility] [address] [id number] [place] [address] Jul, [facility] [address] [id number] [place] [address] Jun, [facility] [address] [id number] [place] [address] Jun, [facility] [address] [id number] [place] [address] May, [facility] [address] [id number] [place] [address] May, [facility] [address] [id number] [place] [address] Mar, [facility] [address] [id number] [place] [address] Mar, [facility] [address] [id number] [place] [address] Mar, [facility] [address] [id number] [place] [address] Mar, [facility] [place] [facility] [address] [id number] [place] [address] Feb, [facility] [place] [facility] [address] [id number] [place] [address] Feb, [facility] [place] [facility] [address] [id number] [place] [address] Feb, [facility] [place] [facility] [address] [id number] [place] [address] Feb, [facility] [place] [facility] [address] [id number] [place] [address] Feb, [facility] [place] [facility] [address] [id number] [place] [address] Feb, [facility] [place] [facility] [address] [facility] [id number] [place] [address] Feb, [facility] [place] [facility] [address] [id number] [place] [address] 18 Jan, 2012 [facility] [place] [facility] [address] [id number] [place] [address] 14 Jan, 2012 [facility] [place] [facility] [address] [id number] [place] [address] Jan, [facility] [place] [facility] [address] [id number] [address] Dec, [facility] [place] [facility] [address] [id number], [place] [address] Dec, [facility] [place] [facility] [address] [id number] [place] [address] Dec, [facility] [place] [facility] [address] [id number], [place] [address] Nov, [facility] [place] [facility] [address] [id number] [place] [address] Oct, [facility] [place] [facility] [address] [id number] [place] [address] Oct, [facility] [address] [id number] [place] [address] Oct, [facility] [place] [facility] [address] [id number] [place] [address] Oct, [facility] [address] [id number] [place] [address] Oct, [facility] [place] [facility] [address] [id number] [place] [address] Aug, [facility] [address] [id number] [place] [address] Aug, [facility] [place] [facility] [address] [id number] [place] [address] Jul, [facility] [address] [id number] [place] [address] Jun, [facility] [address] [id number] Jun, [facility] [address] [id number] [place] [address] May, [facility] [place] [facility] [address] [id number] [place] [address] May, [facility] [address] [id number], [place] [address] May, [facility] [place] [facility] [address] [id number], [place] [address] May, [facility] [place] [facility] [address] [id number] [place] [address] May, [facility] [place] [facility] [address] [id number] [place] [address] Apr, [facility] [place] [facility] [address] [id number] [place] [address] Apr, [facility] [place] [facility] [address] [facility] [id number], [place] [address] Apr, [facility] [address] [facility] [id number], [place] [address] Apr, [facility] [address] [facility] [id number], [place] [address] Apr, [facility] [address] [facility] [id number], [place] [address] Apr, [facility] [address] [facility] [id number], [place] [address] Apr, [facility] [address] [facility] [id number], [place] [address] Apr, IMMUNIZATIONS No Known Immunizations SOCIAL HISTORY Never Assessed REASON FOR VISIT Sore throat x 3 days, swollen glands, difficulty swallowing, headaches-Basilio RN PLAN OF CARE Activity Details Follow Up if not improving with PCP or reg follow up Reason: VITAL SIGNS Height 61 in 2017-05-14 Weight 143.4 lbs 2017-05-14 Temperature 99.4 degrees Fahrenheit 2017-05-14 Heart Rate 72 bpm 2017-05-14 Respiratory Rate 20 2017-05-14 BMI 27.09 kg/m2 2017-05-14 Blood pressure systolic 148 mmHg 2017-05-14 Blood pressure diastolic 84 mmHg 2017-05-14 MEDICATIONS Medication Instructions Dosage Frequency Start Date End Date Duration Status Doxycycline Hyclate 100 mg Orally every 12 hrs 1 tablet 12h May, May, 14 days Active Pravastatin Sodium 20 mg Orally Once a day 1 tablet 24h Mar, 180 days Active Lopid 600 MG Orally Twice a day 1 tablet 12h Mar, 90 days Active Ibuprofen 800 MG 1 tablet with food or milk Three times a day Orally 30 day(s) 30 Not-Taking Clonidine HCl 0.2 MG Orally twice a day 1 tablet 12h Mar, 30 day(s) Active Losartan Potassium 100 MG TAKE ONE TABLET BY MOUTH ONCE DAILY 30 Active MetFORMIN HCl ER 750 MG Orally Once a day 1 tablet with evening meal 24h Mar, 180 days Active Fluoxetine HCl 10 mg Orally Once a day 1 tablet in the morning 24h Mar, 30 day(s) Active Atenolol 100 mg Orally twice a day 1 tablet 12h Dec, 30 days Active RESULTS Name Result Date Reference Range STREP A (IN HOUSE) 2017-05-14 STREP A Negative Control + Lot # [id number] Exp date 02/02/2018 PROCEDURES Procedure Date Ordered Result Body Site STREP A ASSAY W/OPTIC May 14, 2017 INSTRUCTIONS MEDICATIONS ADMINISTERED No Known Medications MEDICAL (GENERAL) HISTORY Type Description Date Medical History Diabetes type II Medical History hypertension Medical History fibromyalgia Medical History hyperlipidemia Medical History ostoarthrtis Surgical History hysterectomy has right ovary left 1995 Surgical History shoulder surgery(right) 09/2014 Hospitalization History surgeries Hospitalization History childbirth x 2
--- OUTSIDE RECORDS SUMMARY | 2018-09-19 20:38 | XMS REPORT ---
Author Author OBED REED [facility] Address [address] [place] [address] Care Team Providers Care Intravenous Therapy Nurse Name Role Phone OBED REED Unavailable PROBLEMS Type Condition ICD9-CM Code XOU20-EN Code Onset Dates Condition Status SNOMED Code Problem Hypertension I10 Active 84074072 Problem Anxiety associated with depression F41.8 Active 672891978 Problem Fibromyalgia M79.7 Active 74177113 Problem Insomnia G47.00 Active 305022914 Problem Chronic maxillary sinusitis J32.0 Active 58103194 Problem Adjustment disorder with anxiety F43.22 Active 35945552 Problem Long-term use of high-risk medication Z79.899 Active 260662984 Problem Hyperlipidemia LDL goal <70 E78.5 Active 32249738 Problem Type 2 diabetes mellitus without complication, without long-term current use of insulin E11.9 Active 395760558 Problem Arthritis M19.90 Active 8392875 ALLERGIES Substance Reaction Event Type Date Status Tetanus Unknown Drug Allergy Feb, Active Sulfacetamide Sodium Unknown Drug Allergy Feb, Active Penicillin G Potassium Unknown Drug Allergy Feb, Active Azithromycin Unknown Drug Allergy Feb, Active ENCOUNTERS Encounter Location Date Diagnosis [place] [id number] [address] Oct, [facility] [id number] [place] [address] Aug, Hypertension I10 and Dyshidrotic eczema L30.1 [facility] [id number] [place] [address] 14 Jun, 2017 Hyperlipidemia LDL goal <70 E78.5 [facility] [id number] [address] 01 Jun, 2017 Arthritis M19.90 [facility] [id number] [place] [address] May, Hypertension I10 ; Anxiety associated with depression F41.8 ; Hyperlipidemia LDL goal <70 E78.5 and Chronic maxillary sinusitis J32.0 [place] [address] [address] May, Acute non-recurrent maxillary sinusitis J01.00 and Sore throat J02.[address] [address] May, Dysthymia F34.[address] [address] Apr, Hypertension I10 [address] [address] Apr, Cough R05 ; Sore throat J02.9 and Bronchitis J40 [address] [address] Mar, Anxiety associated with depression F41.8 ; Adjustment disorder with anxiety F43.22 and Depression F32.[address] [address] Mar, [address] [address] Mar, Type 2 diabetes mellitus without complication, without long-term current use of insulin E11.9 ; Hypertension I10 ; Hyperlipidemia LDL goal <70 E78.5 ; Arthritis M19.90 ; Long-term use of high-risk medication Z79.899 and Dysthymia F34.[address] [address] Mar, [address] [address] Mar, [address] [address] Feb, [facility] [address] [place] [address] Feb, Acute right hip pain M25.551 and Hypertension I10 [facility] [id number] [place] [address] Feb, Diabetes E11.9 [facility] [id number] [place] [address] Jan, Hypertension I10 [facility] [id number] [place] [address] Jan, Hypertension I10 [facility] [id number] [place] [address] Dec, Dysuria R30.0 [facility] [id number] [place] [address] Dec, [facility] [id number] [place] [address] Dec, Fibromyalgia M79.7 [facility] [id number] [place] [address] Dec, Acute recurrent frontal sinusitis J01.11 and Hypertension I10 [facility] [id number] [place] [address] Dec, Hypertension I10 [facility] [id number] [place] [address] Dec, [facility] [id number] [place] [address] Dec, Hypertension I10 [facility] [id number] [place] [address] Nov, [facility] [id number] [place] [address] Oct, Fibromyalgia M79.7 ; Hypertension I10 ; Depression F32.9 ; Hypercholesterolemia E78.0 ; Anxiety associated with depression F41.8 and Diabetes E11.9 [facility] [address], [place] [address] September, Essential hypertension I10 ; Diabetes E11.9 ; Anxiety associated with depression F41.8 and Hypercholesterolemia E78.0 [facility] [address], [place] [address] Aug, [facility] [id number] [place] [address] Aug, Diabetes E11.9 [facility] [id number] [place] [address] Aug, [facility] [id number] [place] [address] Jul, Acute non-recurrent maxillary sinusitis J01.00 [facility] [id number] [place] [address] Jul, Anxiety associated with depression F41.8 [facility] [address] [place] [address] Jun, Anxiety associated with depression F41.8 and Hypercholesterolemia E78.0 [facility] [address] [place] [address] May, Diabetes E11.9 ; Insomnia G47.00 ; Fibromyalgia M79.7 ; Hypercholesterolemia E78.0 ; Anxiety associated with depression F41.8 and Essential hypertension I10 [facility] [address] [address] May, [facility] [address], [place] [address] May, [facility] [address] [place] [address] Mar, [facility] [address], [place] [address] Mar, Hypertension I10 [facility] [id number] [place] [address] Feb, [facility] [address] [address] Feb, [facility] [id number] [place] [address] Feb, Anxiety associated with depression F41.8 ; Chest tightness R07.89 and Elevated blood pressure I10 [place] [address] [address] Feb, Encounter for immunization Z23 ; Bronchitis J40 ; Diabetes E11.9 ; Hypertension I10 ; Insomnia G47.00 ; Hypercholesterolemia E78.0 ; Depression F32.9 and Fibromyalgia M79.7 [facility] [id number] [place] [address] Jan, Bronchitis J40 and Depression F32.9 [facility] [address] [address] Jan, Bronchitis J40 [facility] [id number] [place] [address] Dec, [place] [address] [address] Dec, [facility] [id number] [place] [address] Nov, Acute non-recurrent frontal sinusitis J01.10 and Hypertension I10 [facility] [id number] [place] [address] Nov, [facility] [address] [address] Nov, Diabetes E11.9 ; Fibromyalgia M79.7 ; Hypertension I10 ; Insomnia G47.00 ; Depression F32.9 and Hypercholesterolemia E78.0 [place] [address] [address] [id number] [place] [address] Oct, Hypercholesterolemia E78.0 [facility] [id number] [place] [address] September, [facility] [address] [address] Aug, Diabetes E11.9 ; Fibromyalgia M79.7 ; Hypertension I10 ; Insomnia G47.00 ; Depression F32.9 ; Shoulder pain M25.519 ; Hypercholesterolemia E78.0 and Pain in right shoulder M25.511 [facility] [id number] [place] [address] Jul, [facility] [address] [address] Jun, Hypercholesterolemia E78.0 [place] [address] [address] Jun, [facility] [address] [address] May, [facility] [id number] [place] [address] May, Well woman exam Z01.[address] [address] May, Hypertension I10 ; Diabetes E11.9 ; Fibromyalgia M79.7 ; Insomnia G47.00 ; Depression F32.9 and Hypercholesterolemia E78.0 [place] [id number] [place] [address] Apr, [place] [address] [id number] [place] [address] Apr, Fibromyalgia M79.7 ; Hypertension I10 ; Bronchitis J40 ; Insomnia G47.00 ; Depression F32.9 ; Shoulder pain M25.519 and Hypercholesterolemia E78.0 [facility] [id number] [place] [address] Mar, Hyperlipemia E78.5 [place] [address] [address] Mar, Diabetes E11.9 ; Hypertension I10 ; Insomnia G47.00 ; Depression F32.9 and Shoulder pain M25.519 [facility] [id number] [place] [address] Mar, [facility] [address] [address] Feb, [facility] [address] [address] Feb, Diabetes E11.9 ; Encounter for immunization Z23 ; Fibromyalgia M79.7 ; Hypertension I10 ; Bronchitis J40 and Insomnia G47.00 [facility] [address] [address] Feb, Bronchitis J40 [facility] [address] [address] Jan, Bronchitis 490 [facility] [address] [address] Aug, [facility] [address] [address] Aug, [facility] [address] [address] Jul, [facility] [address] [address] Jul, [facility] [id number] [place] [address] Jul, [facility] [address] [address] Jul, [facility] [address] [address] Jun, [facility] [address] [address] Jun, [facility] [place] [facility] [address] [id number] [place] [address] May, [facility] [place] [facility] [address] [id number] [place] [address] May, [facility] [place] [facility] [address] [id number] [place] [address] Apr, [facility] [place] [facility] [address] [id number] [place] [address] Apr, [facility] [place] [facility] [address] [id number] [place] [address] Apr, [facility] [place] [facility] [address] [id number] [place] [address] Apr, [facility] [place] [facility] [address] [id number] [place] [address] Apr, [facility] [place] [facility] [address] [id number] [place] [address] Apr, [facility] [place] [facility] [address] [id number] [place] [address] Feb, [facility] [place] [facility] [address] [id number] [place] [address] Feb, [facility] [place] [facility] [address] [id number] [place] [address] Jan, [facility] [place] [facility] [address] [id number] [place] [address] Jan, [facility] [place] [facility] [address] [id number] [place] [address] Dec, [facility] [place] [facility] [address] [id number] [place] [address] Dec, [facility] [place] [facility] [address] [id number] [place] [address] September, [facility] [place] [facility] [address] [id number] [place] [address] September, [facility] [address] [id number] [place] [address] September, [facility] [place] [facility] [address] [id number] [place] [address] September, [facility] [place] [facility] [address] [id number] [place] [address] September, [facility] [place] [facility] [address] [id number] [place] [address] September, [facility] [place] [facility] [address] [id number] [place] [address] Aug, [facility] [place] [facility] [address] [id number] [place] [address] Aug, [facility] [place] [facility] [address] [id number] [place] [address] Jul, [facility] [place] [facility] [address] [id number] [place] [address] Jul, [facility] [place] [facility] [address] [id number] [place] [address] May, [facility] [place] [facility] [address] [id number] [place] [address] May, [facility] [place] [facility] [address] [id number] [place] [address] May, [facility] [place] [facility] [address] [id number] [place] [address] May, [facility] [place] [facility] [address] [id number] [place] [address] May, [facility] [place] [facility] [address] [id number] [place] [address] May, [facility] [place] [facility] [address] [id number] [place] [address] Apr, [facility] [place] [facility] [address] [id number] [place] [address] 26 Apr, 2012 [facility] [place] [facility] [address] [id number] [place] [address] Apr, 2012 [facility] [place] [facility] [address] [id number] [place] [address] Apr, 2012 [facility] [place] [facility] [address] [id number] [place] [address] 16 Apr, 2013 [facility] [place] [facility] [address] [id number] [place] [address] 16 Apr, 2013 [facility] [place] [facility] [address] [id number] [place] [address] Apr, [facility] [place] [facility] [address] [id number] [place] [address] Apr, [facility] [place] [facility] [address] [id number] [place] [address] Feb, [facility] [place] [facility] [address] [id number] [place] [address] 31 Feb, 2013 [facility] [place] [facility] [address] [id number] [place] [address] 15 Feb, 2013 [facility] [place] [facility] [address] [id number] [place] [address] 15 Feb, 2013 [facility] [place] [facility] [address] [id number] [place] [address] 10 Feb, 2013 [facility] [place] [facility] [address] [id number] [place] [address] 10 Feb, 2013 [facility] [place] [facility] [address] [id number] [place] [address] 02 Feb, 2013 [facility] [place] [facility] [address] [id number] [place] [address] Feb, [facility] [place] [facility] [address] [id number] [place] [address] Nov, [facility] [address] [id number] [place] [address] Nov, [facility] [address] [id number] [place] [address] Oct, [facility] [address] [id number] [place] [address] Oct, [facility] [address] [id number] [place] [address] Oct, [facility] [address] [id number] [place] [address] September, [facility] [address] [id number] [place] [address] September, [facility] [address] [id number] [place] [address] September, [facility] [address] [id number] [place] [address] September, [facility] [address] [id number] [place] [address] September, [facility] [address] [id number] [place] [address] September, [facility] [address] [id number] [place] [address] September, [facility] [place] [facility] [address] [id number], [place] [address] September, [facility] [place] [facility] [address] [id number] [place] [address] September, [facility] [place] [facility] [address] [id number] [place] [address] September, [facility] [place] [facility] [address] [id number] [place] [address] Aug, [facility] [address] [id number] [place] [address] Jul, [facility] [address] [id number] [place] [address] Jun, [facility] [place] [facility] [address] [id number] [place] [address] Jun, [facility] [address] [id number] [place] [address] May, [facility] [place] [facility] [address] [id number] [place] [address] May, [facility] [address] [id number] [place] [address], [place] [address] Mar, [facility] [place] [facility] [address] [id number] [place] [address] Mar, [facility] [place] [facility] [address] [facility] [id number] [place] [address] Mar, [facility] [place] [facility] [address] [id number] [place] [address] Mar, [facility] [place] [facility] [address] [facility] [id number] [place] [address] Feb, [facility] [address] [facility] [id number] [place] [address] Feb, [facility] [place] [facility] [address] [id number] [place] [address] Feb, [facility] [place] [facility] [address] [id number] [place] [address] Feb, [facility] [place] [facility] [address] [facility] [id number] [place] [address] Feb, [facility] [place] [facility] [address] [facility] [id number] [place] [address] Feb, [facility] [place] [facility] [address] [facility] [id number] [place] [address] Feb, [facility] [place] [facility] [address] [id number] [place] [address] 18 Jan, 2012 [facility] [place] [facility] [address] [id number] [place] [address] 14 Jan, 2012 [facility] [place] [facility] [address] [id number] [place] [address] 10 Jan, 2012 [facility] [place] [facility] [address] [id number] [place] [address] 30 Dec, 2011 [facility] [place] [facility] [address] [id number] [place] [address] Dec, [facility] [place] [facility] [address] [id number] [place] [address] Dec, [facility] [place] [facility] [address] [id number] [place] [address] Nov, [facility] [place] [facility] [address] [id number] [place] [address] Oct, [facility] [place] [facility] [address] [id number] [place] [address] Oct, [facility] [place] [facility] [address] [id number] [place] [address] Oct, [facility] [place] [facility] [address] [id number] [place] [address] Oct, [facility] [place] [facility] [address] [id number], [place] [address] Oct, [facility] [place] [facility] [address] [id number] [place] [address] 24 Aug, 2011 [facility] [place] [facility] [address] [id number] [place] [address] 09 Aug, 2011 [facility] [place] [facility] [address] [facility] [id number] [place] [address] Jul, [facility] [place] [facility] [address] [id number], [place] [address] Jun, [facility] [address] [facility] [id number] [id number] Jun, [facility] [id number] [address] May, [facility] [id number] [address] May, [facility] [address] [address] May, [facility] [id number] [address] May, [facility] [id number], [place] [address] May, [facility] [id number] [address] Apr, [facility] [id number] [address] Apr, [facility] [id number] [address] Apr, [facility] [id number] [address] Apr, [facility] [id number] [address] Apr, [facility] [id number] [address] Apr, [facility] [id number] [address] Apr, [facility] [id number] [address] Apr, IMMUNIZATIONS No Known Immunizations SOCIAL HISTORY Never Assessed REASON FOR VISIT right hip pain, noticed a knot on Saturday night, but has resolved, pain persists- ---DBennettRN, fell out of bed about a month ago, bilateral hip pain x 2 months, right worse since Saturday PLAN OF CARE Activity Details Follow Up 2 - 3 Days,, prn Reason:bp check VITAL SIGNS Height 61 in 2017-02-26 Weight 141 lbs 2017-02-26 Temperature 98.9 degrees Fahrenheit 2017-02-26 Heart Rate 60 bpm 2017-02-26 Respiratory Rate 20 2017-02-26 BMI 26.64 kg/m2 2017-02-26 Blood pressure systolic 190 mmHg 2017-02-26 Blood pressure diastolic 104 mmHg 2017-02-26 MEDICATIONS Medication Instructions Dosage Frequency Start Date End Date Duration Status Pravastatin Sodium 20 mg Orally Once a day 1 tablet 24h Mar, 30 days Active Clonidine HCl 0.1 MG Orally 2 times a day 1 tablet 12h Active metformin 850 mg by oral route twice a day take 1 tablet 2 times per day with morning and evening meals 12h May, 30 days Active Metoprolol Succinate 100 mg Orally Once a day 1 tablet 24h Feb, Aug, 90 days Active Ibuprofen 800 MG 1 tablet with food or milk Three times a day Orally 30 day(s) 30 Active Lopid 600 MG Orally Twice a day 1 tablet 12h Mar, 30 days Active Celebrex 100 mg Orally Once a day 1 capsule with food 24h Feb, Mar, 30 day(s) Active Losartan Potassium 100 mg Orally Once a day TAKE ONE TABLET BY MOUTH DAILY 24h Active Atenolol 100 mg Orally Once a day 1 tablet 24h Dec, Active RESULTS Name Result Date Reference Range Xray : Hip, Right 2 views (IN HOUSE) 2017-02-26 PROCEDURES Procedure Date Ordered Result Body Site X-RAY EXAM HIP UNI 2-3 VIEWS Feb 26, 2017 INSTRUCTIONS MEDICATIONS ADMINISTERED No Known Medications MEDICAL (GENERAL) HISTORY Type Description Date Medical History Diabetes type II Medical History hypertension Medical History fibromyalgia Medical History hyperlipidemia Medical History ostoarthrtis Surgical History hysterectomy has right ovary left 1995 Surgical History shoulder surgery(right) 09/2014 Hospitalization History surgeries Hospitalization History childbirth x 2
--- OUTSIDE RECORDS SUMMARY | 2018-09-19 20:38 | XMS REPORT ---
Author Author ARMANI ANNA MARIE Organization [facility] Address [address] [place] [address] Care Team Providers Care Material Expeditor Name Role Phone ANNA MARIE LOMELI Unavailable PROBLEMS Type Condition ICD9-CM Code [id number] Code Onset Dates Condition Status SNOMED Code Problem Insomnia G47.00 Active 939808696 Problem Hypertension I10 Active 10590354 Problem Bronchitis J40 Active 12338225 Assessment Bronchitis J40 Jan, Active 92959919 Problem Hypercholesterolemia E78.0 Active 67452912 Problem Pain in right shoulder M25.511 Active 28896912 Problem Diabetes E11.9 Active 84091557 Problem Fibromyalgia M79.7 Active 46689145 Problem Depression F32.9 Active 033898983 Problem Shoulder pain M25.519 Active [id number] ALLERGIES Unknown Allergies SOCIAL HISTORY No smoking Hx information available PLAN OF CARE VITAL SIGNS Height 61 in 2016-01-31 Weight 141.3 lbs 2016-01-31 Heart Rate 82 bpm 2016-01-31 Respiratory Rate 20 2016-01-31 BMI 26.70 kg/m2 2016-01-31 Blood pressure systolic 132 mmHg 2016-01-31 Blood pressure diastolic 80 mmHg 2016-01-31 MEDICATIONS Medication Instructions Dosage Frequency Start Date End Date Duration Status Lopid 600 MG Orally Twice a day 1 tablet 12h Mar, Active metformin 850 mg take 1 tablet 2 times per day with morning and evening meals 24h May, Active Celexa 40 mg Orally Once a day 1 tablet 24h Aug, 30 day(s) Active Losartan Potassium 100 MG TAKE ONE TABLET BY MOUTH DAILY Active Toprol XL 200 MG 1 tablet May, Active Ibuprofen 800 MG Orally Three times a day 1 tablet 8h 30 Active Wellbutrin XL 150 MG Orally Once a day 1 tablet in the morning 24h Jan, 30 day(s) Active Promethazine-Codeine 6.25-10 MG/5ML Orally every 6 hrs 5 ml as needed 6h Jan, Active Clonidine HCl 0.1 MG Orally 2 times a day 1 tablet 12h Active Doxycycline Hyclate 100 MG Orally every 12 hrs 1 capsule 12h Jan, Feb, 10 days Active Trazodone HCl 100 MG Orally Once a day 1 tablet at bedtime 24h Active Pravastatin Sodium 20 MG Orally Once a day 1 tablet 24h Mar, Active RESULTS Name Result Date Reference Range CBC 2016-01-31 WBC 8.5 3.4-10.8 RBC 4.32 3.77-5.28 Hemoglobin 13.9 11.1-15.9 Hematocrit 41.9 34.0-46.6 MCV 97 79-97 MCH 32.2 26.6-33.0 MCHC 33.2 31.5-35.7 RDW 14.0 12.3-15.4 Platelets 172 150-379 Neutrophils 67 Lymphs 24 Monocytes 5 Eos 4 Basos 0 Neutrophils (Absolute) 5.7 1.4-7.0 Lymphs (Absolute) 2.0 0.7-3.1 Monocytes(Absolute) 0.4 0.1-0.9 Eos (Absolute) 0.4 0.0-0.4 Baso (Absolute) 0.0 0.0-0.2 Immature Granulocytes 0 Immature Grans (Abs) 0.0 0.0-0.1 CMP 2016-01-31 Glucose, Serum 117 65-99 BUN 10 8-27 Creatinine, Serum 0.73 0.57-1.00 eGFR If NonAfricn Am 89 >59 eGFR If Africn Am 102 >59 BUN/Creatinine Ratio 14 11-26 Sodium, Serum 140 134-144 Potassium, Serum 3.7 3.5-5.2 Chloride, Serum 102 97-108 Carbon Dioxide, Total 22 18-29 Calcium, Serum 9.5 8.7-10.3 Protein, Total, Serum 7.1 6.0-8.5 Albumin, Serum 4.7 3.6-4.8 Globulin, Total 2.4 1.5-4.5 A/G Ratio 2.0 1.1-2.5 Bilirubin, Total 0.4 0.0-1.2 Alkaline Phosphatase, S 65 39-117 AST (SGOT) 18 0-40 ALT (SGPT) 19 0-32 Xray : Chest (IN HOUSE) 2016-01-31 PROCEDURES Procedure Date Ordered Related Diagnosis Body Site COMPLETE CBC W/AUTO DIFF WBC Sept 27, 2016 COMPREHEN METABOLIC PANEL Jan 31, 2016 VENIPUNCT, ROUTINE* Jan 31, 2016 DEPO MEDROL 40 MG/ML Jan 31, 2016 Office Visit, Est Pt., Level 4 Jan 31, 2016 CHEST X-RAY Jan 31, 2016 THER/PROPH/DIAG INJ, SC/IM Jan 31, 2016 DEXAMETHASONE 4MG/ML (PER 1 MG) Jan 31, 2016 IMMUNIZATIONS Vaccine Route Administration Date Status DEPO MEDROL 40 MG/ML IM Intramuscular Jan 31, 2016 Administered DEXAMETHASONE 4MG/ML (PER 1 MG) IM Intramuscular Jan 31, 2016 Administered
--- OUTSIDE RECORDS SUMMARY | 2018-09-19 20:38 | XMS REPORT ---
Author Author MARK MÉNDEZ Organization [employer] Address Unknown Phone Unavailable Care Team Providers Care Jewel Oliving Machine Operator Name Role Phone MARK MÉNDEZ CP Unavailable Allergies, Adverse Reactions, Alerts Substance Reaction Event Type Tetanus Info Not Available Drug Allergy Sulfacetamide Sodium Info Not Available Drug Allergy Penicillin G Potassium Info Not Available Drug Allergy Problems Problem Type Condition Code Onset Dates Condition Status Problem Hypertension I10 Active Problem Diabetes E11.9 Active Problem Fibromyalgia M79.7 Active Problem Essential hypertension I10 Active Problem Elevated blood pressure I10 Active Problem Anxiety associated with depression F41.8 Active Problem Depression F32.9 Active Problem Shoulder pain M25.519 Active Problem Hypercholesterolemia E78.0 Active Problem Pain in right shoulder M25.511 Active Assessment Chest tightness R07.89 Active Assessment Anxiety associated with depression F41.8 Active Problem Insomnia G47.00 Active Assessment Elevated blood pressure I10 Active Problem Bronchitis J40 Active Medications Medication Code System Code Instructions Start Date End Date Status Dosage Toprol XL [facility] [address]-34 200 MG May 17, 2014 1 tablet metformin ND 0 850 mg Once a day May 17, 2014 take 1 tablet 2 times per day with morning and evening meals Clonidine HCl [facility] [address]-60 0.1 MG Orally 2 times a day 1 tablet Ibuprofen [facility] 59747174053 800 MG Orally Three times a day 1 tablet Trazodone HCl [facility] 82825315077 100 MG Orally Once a day 1 tablet at bedtime Lopid [facility] [address]-21 600 MG Orally Twice a day Apr 01, 2015 1 tablet Losartan Potassium [facility] 42316860811 100 MG TAKE ONE TABLET BY MOUTH DAILY Pravastatin Sodium [facility] [address]-73 20 MG Orally Once a day Apr 01, 2015 1 tablet Procedures Procedure Coding System Code Date Office Visit, Est Pt., Level 4 CPT-4 33477 Feb 21, 2016 ELECTROCARDIOGRAM, TRACING CPT-4 70825 Feb 21, 2016 Vital Signs Date/Time: Feb 21, 2016 Cardiac Monitoring Heart Rate 68 bpm Weight 138.8 lbs Height 61 in BMI 26.22 Index Blood Pressure Diastolic 78 mmHg Blood Pressure Systolic 145 mmHg Results No Known Results Summary Purpose [employer] Submission
--- OUTSIDE RECORDS SUMMARY | 2018-09-19 20:39 | XMS REPORT ---
Author Author ANNA MARIE LOMELI [facility] [employer] Address Unknown Phone Unavailable Care Team Providers Care Shop Assistant Name Role Phone ANNA MARIE LOMELI CP Unavailable Allergies, Adverse Reactions, Alerts Substance Reaction Event Type Tetanus Info Not Available Drug Allergy Sulfacetamide Sodium Info Not Available Drug Allergy Penicillin G Potassium Info Not Available Drug Allergy Problems Problem Type Condition Code Onset Dates Condition Status Assessment Bronchitis J40 Active Assessment Fibromyalgia M79.7 Active Assessment Hypertension I10 Active Problem Shoulder pain M25.519 Active Problem Diabetes E11.9 Active Problem Depression F32.9 Active Problem Bronchitis J40 Active Problem Insomnia G47.00 Active Problem Fibromyalgia M79.7 Active Problem Hypertension I10 Active Assessment Hypercholesterolemia E78.0 Active Assessment Shoulder pain M25.519 Active Assessment Depression F32.9 Active Assessment Insomnia G47.00 Active Medications Medication Code System Code Instructions Start Date End Date Status Dosage Celexa [facility] [address]-43 20 MG Orally Once a day Mar 29, 2015 1 tablet Toprol XL [facility] [address]-95 200 MG May 17, 2014 1 tablet Pravastatin Sodium [facility] [address]-75 20 MG Orally Once a day Apr 01, 2015 1 tablet Ibuprofen [facility] [address]-26 800 MG Orally Three times a day Mar 29, 2015 Apr 28, 2015 1 tablet Trazodone HCl [facility] [address]-78 100 MG Orally Once a day Apr 11, 2015 1 tablet at bedtime Cozaar [facility] [address]-45 100 MG 1 TAB orally once a day May 17, 2014 1 tablet by Oral route 1 time per day Clonidine HCl [facility] [address]-49 0.1 MG Orally 2 times a day Mar 29, 2015 1 tablet Lopid [facility] [address]-95 600 MG Orally Twice a day Apr 01, 2015 1 tablet Procedures Procedure Coding System Code Date Office Visit, Est Pt., Level 4 CPT-4 96143 Apr 11, 2015 Vital Signs Date/Time: Apr 11, 2015 Temperature 97.6 F Weight 145.7 lbs Height 61 in BMI 27.53 Index Blood Pressure Diastolic 110 mmHg Blood Pressure Systolic 200 mmHg Cardiac Monitoring Heart Rate 68 bpm Results No Known Results Summary Purpose [employer] Submission
--- OUTSIDE RECORDS SUMMARY | 2018-09-19 20:39 | XMS REPORT ---
Author Author ANNA MARIE LOMELI Organization [employer] Address Unknown Phone Unavailable Care Team Providers Care Clinical Rn Manager Name Role Phone NISHA LOMELINETTE CP Unavailable Allergies No Known Allergies Problems Problem Type Condition Code Onset Dates Condition Status Assessment Hyperlipemia E78.5 Active Problem Need for prophylactic vaccination and inoculation, Influenza V04.81 Active Problem Pain in joint, shoulder region 719.41 Active Problem Other malaise and fatigue 780.79 Active Problem Pain in joint, pelvic region and thigh 719.45 Active Problem Unspecified infective otitis externa 380.10 Active Problem Acute pharyngitis 462 Active Problem Unspecified myalgia and myositis 729.1 Active Problem 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 Problem Cramp of limb 729.82 Active Problem Acute sinusitis, unspecified 461.9 Active Problem Shoulder pain M25.519 Active Problem Diabetes E11.9 Active Problem Unspecified backache 724.[address] of occurrence, home E849.0 Active Problem Depression F32.9 Active Problem Fall from other slipping, tripping, or stumbling E885.9 Active Problem Bronchitis J40 Active Problem Insomnia G47.00 Active Problem Fibromyalgia M79.7 Active Problem Hypertension I10 Active Problem Family history of diabetes mellitus V18.0 Active Problem Other atopic dermatitis and related conditions 691.8 Active Problem Pure hyperglyceridemia 272.1 Active Problem Unspecified thrombocytopenia 287.5 Active Problem Insomnia, unspecified 780.52 Active Problem Lumbago 724.2 Active Problem Acute bronchitis 466.0 Active Problem Encounter for long-term (current) use of other medications V58.69 Active Medications Medication Code System Code Instructions Start Date End Date Status Dosage Lopid [facility] [address]-47 600 MG Orally Twice a day Apr 01, 2015 1 tablet Pravastatin Sodium [facility] [address]-13 20 MG Orally Once a day Apr 01, 2015 1 tablet Results No Known Results Summary Purpose [employer] Submission
--- OUTSIDE RECORDS SUMMARY | 2018-09-19 20:39 | XMS REPORT ---
Author ANNA MARIE Rogers Organization [employer] Address Unknown Phone Unavailable Care Team Providers Care Electric Deicer Assembler Name Role Phone ANNA MARIE LOMELI CP Unavailable Allergies No Known Allergies Problems Problem Type Condition Code Onset Dates Condition Status Problem Bronchitis J40 Active Problem Insomnia G47.00 Active Problem Pain in right shoulder M25.511 Active Problem Depression F32.9 Active Problem Hypercholesterolemia E78.0 Active Problem Fibromyalgia M79.7 Active Problem Hypertension I10 Active Problem Shoulder pain M25.519 Active Problem Diabetes E11.9 Active Medications No Known Medications Results No Known Results Summary Purpose [employer] Submission
--- OUTSIDE RECORDS SUMMARY | 2018-09-19 20:39 | XMS REPORT ---
Author Author LALITA ARZATE [facility] Address [address] [place] [address] Care Team Providers Care Burring Wheel Operator Name Role Phone LALITA ARZATE Unavailable PROBLEMS Type Condition ICD9-CM Code CZV02-KE Code Onset Dates Condition Status SNOMED Code Problem Hypertension I10 Active 52739836 Problem Anxiety associated with depression F41.8 Active 431551843 Problem Fibromyalgia M79.7 Active 20801643 Problem Insomnia G47.00 Active 615331060 Problem Chronic maxillary sinusitis J32.0 Active 63637206 Problem Adjustment disorder with anxiety F43.22 Active 08419886 Problem Long-term use of high-risk medication Z79.899 Active 959794373 Problem Hyperlipidemia LDL goal <70 E78.5 Active 41214018 Problem Type 2 diabetes mellitus without complication, without long-term current use of insulin E11.9 Active 512906441 Problem Arthritis M19.90 Active 6608446 ALLERGIES No Information ENCOUNTERS Encounter Location Date Diagnosis [place] [id number] [place] [id number] Oct, [place] [address] [place] [id number] [place] [address] Aug, Hypertension I10 and Dyshidrotic eczema L30.1 [place] [id number] [place] [address] 14 Jun, 2017 Hyperlipidemia LDL goal <70 E78.5 [place] [id number] [place] [address] Jun, Arthritis M19.90 [place] [address] [place] [id number] [place] [address] May, Hypertension I10 ; Anxiety associated with depression F41.8 ; Hyperlipidemia LDL goal <70 E78.5 and Chronic maxillary sinusitis J32.0 [place] [address] [place] [id number] [place] [address] May, Acute non-recurrent maxillary sinusitis J01.00 and Sore throat J02.9 [place] [address] [place] [id number] [place] [address] May, Dysthymia F34.1 [place] [address] [address] Apr, Hypertension I10 [address] [address] Apr, Cough R05 ; Sore throat J02.9 and Bronchitis J40 [address] [address] Mar, Anxiety associated with depression F41.8 ; Adjustment disorder with anxiety F43.22 and Depression F32.9 [place] [address] [place] [id number] [place] [address] Mar, [address] [address] Mar, Type 2 diabetes mellitus without complication, without long-term current use of insulin E11.9 ; Hypertension I10 ; Hyperlipidemia LDL goal <70 E78.5 ; Arthritis M19.90 ; Long-term use of high-risk medication Z79.899 and Dysthymia F34.1 [place] [address] [place] [id number] [place] [address] Mar, [place] [address] [address] Mar, [place] [address] [place] [id number] [place] [address] Feb, [place] [address] [place] [id number] [place] [address] Feb, Acute right hip pain M25.551 and Hypertension I10 [facility] [address] [place] [id number] [place] [address] Feb, Diabetes E11.9 [facility] [address] [place] [id number] [place] [address] Jan, Hypertension I10 [facility] [address] [place] [id number] [place] [address] Jan, Hypertension I10 [facility] [address] [place] [id number] [place] [address] Dec, Dysuria R30.0 [facility] [address] [place] [id number] [place] [address] Dec, [facility] [address] [place] [id number] [place] [address] Dec, Fibromyalgia M79.7 [facility] [address] [place] [id number] [place] [address] Dec, Acute recurrent frontal sinusitis J01.11 and Hypertension I10 [facility] [address] [place] [id number] [place] [address] Dec, Hypertension I10 [facility] [address] [place] [id number] [place] [address] Dec, [facility] [address] [place] [id number] [place] [address] Dec, Hypertension I10 [facility] [address] [place] [id number] [place] [address] Nov, [facility] [address] [place] [id number] [place] [address] Oct, Fibromyalgia M79.7 ; Hypertension I10 ; Depression F32.9 ; Hypercholesterolemia E78.0 ; Anxiety associated with depression F41.8 and Diabetes E11.9 [facility] [id number] [place] [address] September, Essential hypertension I10 ; Diabetes E11.9 ; Anxiety associated with depression F41.8 and Hypercholesterolemia E78.0 [facility] [address] [place] [id number] [place] [address] Aug, [facility] [address] [place] [id number] [place] [address] Aug, Diabetes E11.9 [facility] [address] [place] [id number] [place] [address] Aug, [facility] [address] [place] [id number] [place] [address] Jul, Acute non-recurrent maxillary sinusitis J01.00 [facility] [address] [place] [id number] [place] [address] Jul, Anxiety associated with depression F41.8 [facility] [address] [place] [id number] [place] [address] Jun, Anxiety associated with depression F41.8 and Hypercholesterolemia E78.0 [facility] [address] [place] [id number] [place] [address] May, Diabetes E11.9 ; Insomnia G47.00 ; Fibromyalgia M79.7 ; Hypercholesterolemia E78.0 ; Anxiety associated with depression F41.8 and Essential hypertension I10 [facility] [id number] [place] [address] May, [facility] [address] [place] [id number] [place] [address] May, [facility] [address] [place] [id number] [place] [address] Mar, [facility] [address] [place] [id number] [place] [address] Mar, Hypertension I10 [facility] [address] [place] [id number] [place] [address] Feb, [facility] [address] [place] [id number] [place] [address] Feb, [facility] [address] [place] [id number] [place] [address] Feb, Anxiety associated with depression F41.8 ; Chest tightness R07.89 and Elevated blood pressure I10 [place] [address] [place] [id number] [place] [address] Feb, Encounter for immunization Z23 ; Bronchitis J40 ; Diabetes E11.9 ; Hypertension I10 ; Insomnia G47.00 ; Hypercholesterolemia E78.0 ; Depression F32.9 and Fibromyalgia M79.7 [facility] [address] [place] [id number] [place] [address] Jan, Bronchitis J40 and Depression F32.9 [facility] [address] [place] [id number] [place] [address] Jan, Bronchitis J40 [facility] [address] [address] Dec, [facility] [address] [place] [id number] [place] [address] Dec, [place] [address] [place] [id number] [place] [address] Nov, Acute non-recurrent frontal sinusitis J01.10 and Hypertension I10 [place] [address] [place] [id number] [place] [address] Nov, [facility] [address] [address] Nov, Diabetes E11.9 ; Fibromyalgia M79.7 ; Hypertension I10 ; Insomnia G47.00 ; Depression F32.9 and Hypercholesterolemia E78.0 [place] [address] [place] [id number] [place] [address] Oct, Hypercholesterolemia E78.0 [facility] [address] [place] [id number] [place] [address] September, [place] [address] [place] [id number] [place] [address] Aug, Diabetes E11.9 ; Fibromyalgia M79.7 ; Hypertension I10 ; Insomnia G47.00 ; Depression F32.9 ; Shoulder pain M25.519 ; Hypercholesterolemia E78.0 and Pain in right shoulder M25.511 [place] [address] [address] Jul, [place] [address] [address] Jun, Hypercholesterolemia E78.0 [place] [address] [address] Jun, [place] [address] [address] May, [place] [address] [address] May, Well woman exam Z01.419 [place] [address] [address] May, Hypertension I10 ; Diabetes E11.9 ; Fibromyalgia M79.7 ; Insomnia G47.00 ; Depression F32.9 and Hypercholesterolemia E78.0 [place] [address] [place] [id number] [place] [address] Apr, [address] [address] Apr, Fibromyalgia M79.7 ; Hypertension I10 ; Bronchitis J40 ; Insomnia G47.00 ; Depression F32.9 ; Shoulder pain M25.519 and Hypercholesterolemia E78.[address] [address] Mar, Hyperlipemia E78.5 [place] [address] [place] [id number] [place] [address] Mar, Diabetes E11.9 ; Hypertension I10 ; Insomnia G47.00 ; Depression F32.9 and Shoulder pain M25.519 [facility] [address] [place] [id number] [place] [address] Mar, [facility] [address] [address] Feb, [facility] [address] [place] [id number] [place] [address] Feb, Diabetes E11.9 ; Encounter for immunization Z23 ; Fibromyalgia M79.7 ; Hypertension I10 ; Bronchitis J40 and Insomnia G47.00 [facility] [address] [address] Feb, Bronchitis J40 [facility] [address] [address] Jan, Bronchitis 490 [facility] [address] [address] Aug, [facility] [address] [address] Aug, [facility] [address] [address] Jul, [facility] [address] [place] [id number] [place] [address] Jul, [facility] [address] [place] [id number] [place] [address] Jul, [facility] [address] [place] [id number] [place] [address] Jul, [facility] [address] [place] [id number] [place] [address] Jun, [facility] [address] [address] Jun, [facility] [address] [place] [id number] [place] [address] May, [facility] [place] [facility] [address] [id number] [place] [address] May, [facility] [place] [facility] [address] [id number] [place] [address] Apr, [facility] [place] [facility] [address] [id number] [place] [address] Apr, [facility] [place] [facility] [address] [id number] [place] [address] Apr, [facility] [place] [facility] [address] [id number] [place] [address] Apr, [facility] [place] [facility] [address] [id number] [place] [address] Apr, [facility] [place] [facility] [address] [id number] [place] [address] Apr, [facility] [place] [facility] [address] [id number] [place] [address] Feb, [facility] [place] [facility] [address] [id number] [place] [address] Feb, [facility] [place] [facility] [address] [id number] [place] [address] Jan, [facility] [place] [facility] [address] [id number] [place] [address] Jan, [facility] [place] [facility] [address] [id number] [place] [address] Dec, [facility] [place] [facility] [address] [id number] [place] [address] Dec, [facility] [place] [facility] [address] [id number] [place] [address] September, [facility] [place] [facility] [address] [id number] [place] [address] September, [facility] [place] [facility] [address] [id number] [place] [address] September, [facility] [place] [facility] [address] [id number] [place] [address] September, [facility] [place] [facility] [address] [id number] [place] [address] September, [facility] [place] [facility] [address] [id number] [place] [address] September, [facility] [place] [facility] [address] [id number] [place] [address] Aug, [facility] [place] [facility] [address] [id number] [place] [address] Aug, [facility] [place] [facility] [address] [id number] [place] [address] Jul, [facility] [place] [facility] [address] [id number] [place] [address] Jul, [facility] [place] [facility] [address] [id number] [address] May, [facility] [place] [facility] [address] [id number] [place] [address] May, [facility] [place] [facility] [address] [id number] [place] [address] May, [facility] [place] [facility] [address] [id number], [place] [address] May, [facility] [place] [facility] [address] [id number], [place] [address] May, [facility] [place] [facility] [address] [id number] [place] [address] May, [facility] [place] [facility] [address] [id number], [place] [address] Apr, [facility] [place] [facility] [address] [id number] [place] [address] Apr, [facility] [place] [facility] [address] [id number] [place] [address] Apr, 2012 [facility] [place] [facility] [address] [id number] [place] [address] 19 Apr, 2012 [facility] [place] [facility] [address] [id number] [place] [address] 16 Apr, 2012 [facility] [place] [facility] [address] [id number] [place] [address] 16 Apr, 2012 [facility] [place] [facility] [address] [id number] [place] [address] Apr, [facility] [place] [facility] [address] [id number] [place] [address] Apr, [facility] [place] [facility] [address] [id number] [place] [address] Feb, [facility] [place] [facility] [address] [id number] [place] [address] Feb, [facility] [place] [facility] [address] [id number] [place] [address] Feb, [facility] [place] [facility] [address] [id number] [place] [address] 15 Feb, 2013 [facility] [place] [facility] [address] [id number] [place] [address] Feb, [facility] [place] [facility] [address] [id number] [place] [address] Feb, [facility] [place] [facility] [address] [id number] [place] [address] Feb, [facility] [place] [facility] [address] [id number] [place] [address] Feb, [facility] [place] [facility] [address] [id number] [place] [address] Nov, [facility] [place] [facility] [address] [id number] [place] [address] Nov, [facility] [place] [facility] [address] [id number] [place] [address] Oct, [facility] [address] [id number] [place] [address] Oct, [facility] [address] [id number] [place] [address] Oct, [facility] [address] [id number] [place] [address] September, [facility] [address] [id number] [place] [address] September, [facility] [address] [id number] [place] [address] September, [facility] [address] [id number] [place] [address] September, [facility] [address] [id number] [place] [address] September, [facility] [address] [id number] [place] [address] September, [facility] [address] [id number] [place] [address] September, [facility] [address] [id number] [place] [address] September, [facility] [address] [id number] [place] [address] September, [facility] [address] [id number] [place] [address] September, [facility] [address] [id number] [place] [address] Aug, [facility] [address] [id number] [place] [address] Jul, [facility] [address] [id number], [place] [address] Jun, [facility] [place] [facility] [address] [id number] [place] [address] Jun, [facility] [place] [facility] [address] [facility] [id number] [place] [address] May, [facility] [place] [facility] [address] [facility] [id number] [place] [address] May, [facility] [place] [facility] [address] [id number] [place] [address] Mar, [facility] [place] [facility] [address] [id number] [place] [address] Mar, [facility] [place] [facility] [address] [facility] [id number] [place] [address] Mar, [facility] [place] [facility] [address] [facility] [id number] [place] [address] Mar, [facility] [place] [facility] [address] [facility] [id number] [place] [address] Feb, [facility] [place] [facility] [address] [facility] [id number] [place] [address] Feb, [facility] [place] [facility] [address] [facility] [id number] [place] [address] Feb, [facility] [place] [facility] [address] [facility] [id number], [place] [address] Feb, [facility] [place] [facility] [address] [facility] [id number], [place] [address] Feb, [facility] [place] [facility] [address] [facility] [id number] [place] [address] Feb, [facility] [place] [facility] [address] [facility] [id number], [place] [address] Feb, [facility] [place] [facility] [address] [facility] [id number], [place] [address] Jan, [facility] [place] [facility] [address] [id number] [place] [address] 14 Jan, 2012 [facility] [place] [facility] [address] [id number] [place] [address] 10 Jan, 2012 [facility] [place] [facility] [address] [facility] [id number] [place] [address] 30 Dec, 2011 [facility] [place] [facility] [address] [id number] [place] [address] Dec, [facility] [place] [facility] [address] [facility] [id number] [place] [address] Dec, [facility] [place] [facility] [address] [facility] [id number] [place] [address] Nov, [facility] [place] [facility] [address] [facility] [id number] [place] [address] Oct, [facility] [place] [facility] [id number] [place] [address] Oct, [facility] [address] [facility] [id number] [place] [address] Oct, [facility] [place] [facility] [address] [id number] [place] [address] Oct, [facility] [address] [id number] [place] [address] Oct, [facility] [place] [facility] [id number] [place] [address] 24 Aug, 2011 [facility] [place] [facility] [address] [facility] [id number] [place] [address] Aug, [facility] [place] [facility] [address] [facility] [id number] [place] [address] Jul, [facility] [place] [facility] [address] [facility] [id number] [place] [address] 20 Jun, 2011 [facility] [address] [facility] [id number] [id number] Jun, [facility] [address] [id number] [address] May, [facility] [id number] [address] May, [facility] [id number] [address] May, [facility] [id number] [address] May, [facility] [address] [facility] [id number] [address] May, [facility] [id number] [address] Apr, [facility] [id number] [address] Apr, [facility] [id number] [address] Apr, [facility] [id number] [address] Apr, [facility] [id number] [address] Apr, [facility] [id number] [address] Apr, [facility] [id number] [address] Apr, [facility] [id number] [address] Apr, IMMUNIZATIONS No Known Immunizations SOCIAL HISTORY Never Assessed REASON FOR VISIT Refill request PLAN OF CARE VITAL SIGNS MEDICATIONS Medication Instructions Dosage Frequency Start Date End Date Duration Status Atenolol 100 mg Orally twice a day 1 tablet 12h Dec, 30 days Active RESULTS No Results PROCEDURES [...]
--- OUTSIDE RECORDS SUMMARY | 2018-09-19 20:39 | XMS REPORT ---
Author Author ANNA MARIE Allan Organization [facility] Address [address] [place] [address] Care Team Providers Care Industrial Production Manager Name Role Phone ANNA MARIE Allan Unavailable PROBLEMS Type Condition ICD9-CM Code [id number] Code Onset Dates Condition Status SNOMED Code Problem Hypertension I10 Active 95135192 Problem Anxiety associated with depression F41.8 Active 577185149 Problem Fibromyalgia M79.7 Active 04317014 Problem Insomnia G47.00 Active 520109086 Problem Chronic maxillary sinusitis J32.0 Active 51154071 Problem Adjustment disorder with anxiety F43.22 Active 25019635 Problem Long-term use of high-risk medication Z79.899 Active 122731774 Problem Hyperlipidemia LDL goal <70 E78.5 Active 07653566 Problem Type 2 diabetes mellitus without complication, without long-term current use of insulin E11.9 Active 177511727 Problem Arthritis M19.90 Active 9841189 ALLERGIES No Information ENCOUNTERS Encounter Location Date Diagnosis [place] [id number] [place] [address] 14 Jun, 2017 Hyperlipidemia LDL goal <70 E78.5 [facility] [id number] [place] [address] Jun, Arthritis M19.90 [place] [id number] [place] [address] May, Hypertension I10 ; Anxiety associated with depression F41.8 ; Hyperlipidemia LDL goal <70 E78.5 and Chronic maxillary sinusitis J32.0 [place] [id number] [place] [address] May, Acute non-recurrent maxillary sinusitis J01.00 and Sore throat J02.9 [place] [address] [address] May, Dysthymia F34.1 [place] [address] [address] Apr, Hypertension I10 [address] [address] Apr, Cough R05 ; Sore throat J02.9 and Bronchitis J40 [address] [address] Mar, Anxiety associated with depression F41.8 ; Adjustment disorder with anxiety F43.22 and Depression F32.[address] [address] Mar, [address] [address] Mar, Type 2 diabetes mellitus without complication, without long-term current use of insulin E11.9 ; Hypertension I10 ; Hyperlipidemia LDL goal <70 E78.5 ; Arthritis M19.90 ; Long-term use of high-risk medication Z79.899 and Dysthymia F34.1 [place] [address] [address] Mar, [address] [address] Mar, [place] [address] [address] Feb, [place] [address] [address] Feb, Acute right hip pain M25.551 and Hypertension I10 [place] [address] [address] Feb, Diabetes E11.9 [place] [address] [address] Jan, Hypertension I10 [facility] [address] [address] Jan, Hypertension I10 [facility] [id number] [place] [address] Dec, Dysuria R30.0 [facility] [id number] [place] [address] Dec, [facility] [id number] [place] [address] Dec, Fibromyalgia M79.7 [facility] [id number] [place] [address] Dec, Acute recurrent frontal sinusitis J01.11 and Hypertension I10 [facility] [id number] [place] [address] Dec, Hypertension I10 [facility] [id number] [place] [address] Dec, [facility] [id number] [place] [address] Dec, Hypertension I10 [facility] [id number] [place] [address] Nov, [facility] [id number] [place] [address] Oct, Fibromyalgia M79.7 ; Hypertension I10 ; Depression F32.9 ; Hypercholesterolemia E78.0 ; Anxiety associated with depression F41.8 and Diabetes E11.9 [facility] [address] [address] September, Essential hypertension I10 ; Diabetes E11.9 ; Anxiety associated with depression F41.8 and Hypercholesterolemia E78.0 [facility] [id number] [place] [address] Aug, [facility] [id number] [place] [address] Aug, Diabetes E11.9 [facility] [id number] [place] [address] Aug, [facility] [id number] [place] [address] 13 Jul, 2016 Acute non-recurrent maxillary sinusitis J01.00 [facility] [id number] [place] [address] 06 Jul, 2016 Anxiety associated with depression F41.8 [facility] [id number] [place] [address] Jun, Anxiety associated with depression F41.8 and Hypercholesterolemia E78.0 [facility] [id number] [place] [address] May, Diabetes E11.9 ; Insomnia G47.00 ; Fibromyalgia M79.7 ; Hypercholesterolemia E78.0 ; Anxiety associated with depression F41.8 and Essential hypertension I10 [facility] [address] [address] May, [facility] [id number] [place] [address] May, [facility] [id number] [place] [address] Mar, [facility] [id number] [place] [address] Mar, Hypertension I10 [facility] [address] [address] Feb, [facility] [id number] [place] [address] Feb, [facility] [address] [address] Feb, Anxiety associated with depression F41.8 ; Chest tightness R07.89 and Elevated blood pressure I10 [facility] [id number] [place] [address] 11 Feb, 2016 Encounter for immunization Z23 ; Bronchitis J40 ; Diabetes E11.9 ; Hypertension I10 ; Insomnia G47.00 ; Hypercholesterolemia E78.0 ; Depression F32.9 and Fibromyalgia M79.7 [facility] [address] [address] 27 Jan, 2016 Bronchitis J40 and Depression F32.9 [facility] [address] [address] Jan, Bronchitis J40 [place] [address] [address] Dec, [place] [address] [address] Dec, [place] [address] [address] Nov, Acute non-recurrent frontal sinusitis J01.10 and Hypertension I10 [place] [address] [address] Nov, [place] [address] [address] Nov, Diabetes E11.9 ; Fibromyalgia M79.7 ; Hypertension I10 ; Insomnia G47.00 ; Depression F32.9 and Hypercholesterolemia E78.0 [place] [address] [address] Oct, Hypercholesterolemia E78.0 [place] [address] [address] September, [place] [address] [address] Aug, Diabetes E11.9 ; Fibromyalgia M79.7 ; Hypertension I10 ; Insomnia G47.00 ; Depression F32.9 ; Shoulder pain M25.519 ; Hypercholesterolemia E78.0 and Pain in right shoulder M25.511 [facility] [id number] [place] [address] Jul, [facility] [address] [address] Jun, Hypercholesterolemia E78.0 [facility] [address] [address] Jun, [facility] [address] [address] May, [facility] [address] [address] May, Well woman exam Z01.419 [place] [address] [address] May, Hypertension I10 ; Diabetes E11.9 ; Fibromyalgia M79.7 ; Insomnia G47.00 ; Depression F32.9 and Hypercholesterolemia E78.0 [facility] [id number] [place] [address] Apr, [place] [address] [address] Apr, Fibromyalgia M79.7 ; Hypertension I10 ; Bronchitis J40 ; Insomnia G47.00 ; Depression F32.9 ; Shoulder pain M25.519 and Hypercholesterolemia E78.0 [place] [id number] [place] [address] Mar, Hyperlipemia E78.5 [facility] [id number] [place] [address] Mar, Diabetes E11.9 ; Hypertension I10 ; Insomnia G47.00 ; Depression F32.9 and Shoulder pain M25.519 [facility] [id number] [place] [address] Mar, [facility] [address] [address] Feb, [facility] [id number] [place] [address] Feb, Diabetes E11.9 ; Encounter for immunization Z23 ; Fibromyalgia M79.7 ; Hypertension I10 ; Bronchitis J40 and Insomnia G47.00 [facility] [id number] [place] [address] Feb, Bronchitis J40 [facility] [address] [address] Jan, Bronchitis 490 [facility] [address] [address] Aug, [facility] [address] [address] Aug, [facility] [id number] [place] [address] Jul, [facility] [id number] [place] [address] Jul, [facility] [id number] [place] [address] Jul, [facility] [id number] [place] [address] Jul, [facility] [id number] [place] [address] Jun, [facility] [id number] [place] [address] Jun, [facility] [id number] [place] [address] May, [facility] [id number] [place] [address] May, [facility] [id number] [place] [address] Apr, [facility] [address] [id number] [place] [address] Apr, [facility] [place] [facility] [address] [id number] [place] [address] Apr, [facility] [place] [facility] [address] [id number] [place] [address] Apr, [facility] [place] [facility] [address] [id number] [place] [address] Apr, [facility] [place] [facility] [address] [id number] [place] [address] Apr, [facility] [place] [facility] [address] [id number] [place] [address] Feb, [facility] [place] [facility] [address] [id number] [place] [address] Feb, [facility] [place] [facility] [address] [id number] [place] [address] Jan, [facility] [place] [facility] [address] [id number] [place] [address] Jan, [facility] [place] [facility] [address] [id number] [place] [address] Dec, [facility] [place] [facility] [address] [id number] [place] [address] Dec, [facility] [place] [facility] [address] [id number] [place] [address] September, [facility] [place] [facility] [address] [id number] [place] [address] September, [facility] [place] [facility] [address] [id number] [place] [address] September, [facility] [place] [facility] [address] [id number] [place] [address] September, [facility] [place] [facility] [address] [id number] [place] [address] September, [facility] [place] [facility] [address] [id number] [place] [address] September, [facility] [address] [id number] [place] [address] Aug, [facility] [address] [id number] [place] [address] Aug, [facility] [address] [id number] [place] [address] Jul, [facility] [address] [id number] [place] [address] Jul, [facility] [address] [id number] [place] [address] May, [facility] [address] [id number] [place] [address] May, [facility] [address] [id number] [place] [address] May, [facility] [address] [id number] [place] [address] May, [facility] [address] [id number] [place] [address] May, [facility] [address] [id number] [place] [address] May, [facility] [address] [id number] [place] [address] Apr, [facility] [place] [facility] [address] [id number] [place] [address] Apr, [facility] [place] [facility] [address] [id number] [place] [address] Apr, [facility] [place] [facility] [address] [id number] [place] [address] Apr, [facility] [place] [facility] [address] [id number] [place] [address] Apr, [facility] [place] [facility] [address] [id number] [place] [address] Apr, [facility] [place] [facility] [address] [id number] [place] [address] Apr, [facility] [place] [facility] [address] [id number] [place] [address] Apr, [facility] [place] [facility] [address] [id number] [place] [address] Feb, [facility] [place] [facility] [address] [id number] [place] [address] Feb, [facility] [place] [facility] [address] [id number] [place] [address] Feb, [facility] [place] [facility] [address] [id number] [place] [address] Feb, [facility] [place] [facility] [address] [id number] [place] [address] Feb, [facility] [place] [facility] [address] [id number] [place] [address] Feb, [facility] [place] [facility] [address] [id number] [place] [address] Feb, [facility] [place] [facility] [address] [id number] [address] Feb, [facility] [place] [facility] [address] [id number] [address] Nov, [facility] [place] [facility] [address] [id number] [place] [address] Nov, [facility] [place] [facility] [address] [id number] [place] [address] Oct, [facility] [place] [facility] [address] [id number] [place] [address] Oct, [facility] [place] [facility] [address] [id number] [place] [address] Oct, [facility] [address] [id number] [place] [address] September, [facility] [address] [id number] [place] [address] September, [facility] [address] [id number] [place] [address] September, [facility] [address] [id number] [place] [address] September, [facility] [address] [id number] [place] [address] September, [facility] [address] [id number] [place] [address] September, [facility] [address] [id number] [place] [address] September, [facility] [address] [id number] [place] [address] September, [facility] [address] [id number] [place] [address] September, [facility] [address] [id number] [place] [address] September, [facility] [address] [id number] [place] [address] Aug, [facility] [address] [id number] [place] [address] Jul, [facility] [address] [id number] [place] [address] Jun, [facility] [address] [id number] [place] [address] Jun, [facility] [address] [id number] [place] [address] May, [facility] [place] [facility] [address] [id number] [place] [address] May, [facility] [place] [facility] [address] [id number] [place] [address] Mar, [facility] [place] [facility] [address] [id number] [place] [address] Mar, [facility] [place] [facility] [address] [id number] [place] [address] Mar, [facility] [place] [facility] [address] [id number] [place] [address] Mar, [facility] [place] [facility] [address] [id number] [place] [address] Feb, [facility] [place] [facility] [address] [id number] [place] [address] Feb, [facility] [place] [facility] [address] [id number] [place] [address] Feb, [facility] [place] [facility] [address] [id number] [place] [address] Feb, [facility] [place] [facility] [address] [id number] [place] [address] Feb, [facility] [place] [facility] [address] [id number] [place] [address] Feb, [facility] [place] [facility] [address] [id number] [place] [address] Feb, [facility] [place] [facility] [address] [id number] [place] [address] 18 Jan, 2012 [facility] [place] [facility] [address] [id number] [place] [address] 14 Jan, 2012 [facility] [place] [facility] [address] [id number] [place] [address] 10 Jan, 2012 [facility] [place] [facility] [address] [id number] [place] [address] Dec, [facility] [address] [id number] [place] [address] Dec, [facility] [place] [facility] [address] [facility] [id number] [place] [address] Dec, [facility] [place] [facility] [address] [id number] [place] [address] Nov, [facility] [place] [facility] [address] [id number] [place] [address] Oct, [facility] [place] [facility] [address] [id number] [place] [address] Oct, [facility] [place] [facility] [address] [facility] [id number] [place] [address] Oct, [facility] [place] [facility] [address] [id number] [place] [address] Oct, [facility] [place] [facility] [address] [id number] [place] [address] Oct, [facility] [place] [facility] [id number] [place] [address] Aug, [facility] [place] [facility] [address] [id number] [place] [address] Aug, [facility] [place] [facility] [address] [id number] [place] [address] Jul, [facility] [place] [facility] [address] [facility] [id number] [place] [address] Jun, [facility] [address] [id number] [place] [id number] Jun, [facility] [place] [facility] [address] [id number] [place] [address] May, [facility] [place] [facility] [address] [id number] [place] [address] May, [facility] [place] [facility] [address] [facility] [id number] [place] [address] May, [facility] [address] [facility] [id number] [place] [address] May, [facility] [address] [facility] [id number] [place] [address] May, [facility] [address] [facility] [id number] [place] [address] Apr, [facility] [address] [facility] [id number] [place] [address] Apr, [facility] [address] [facility] [id number] [place] [address] Apr, [facility] [address] [facility] [id number] [place] [address] Apr, [facility] [id number] [address] Apr, [facility] [address] [facility] [id number] [place] [address] Apr, [facility] [address] [facility] [id number] [place] [address] Apr, [facility] [address] [id number] [address] Apr, IMMUNIZATIONS No Known Immunizations SOCIAL HISTORY Never Assessed REASON FOR VISIT Medication refill request PLAN OF CARE VITAL SIGNS MEDICATIONS Medication Instructions Dosage Frequency Start Date End Date Duration Status Toprol XL 100 mg Orally Once a day 1 tablet 24h May, 30 days Active RESULTS No Results PROCEDURES [...]
--- OUTSIDE RECORDS SUMMARY | 2018-09-19 20:40 | XMS REPORT ---
Author Author ANNA MARIE LOMELI Organization [employer] Address Unknown Phone Unavailable Care Team Providers Care Nurse Healthcare Manager Name Role Phone ANNA MARIE LOMELI CP [...] Pain in right shoulder M25.511 Active Assessment Hypertension I10 Active Problem Insomnia G47.00 Active Problem Bronchitis J40 Active Medications Medication Code System Code Instructions Start Date End Date Status Dosage Losartan Potassium [facility] [address]-22 100 MG TAKE ONE TABLET BY MOUTH DAILY Results No Known Results Summary Purpose [employer] Submission
--- OUTSIDE RECORDS SUMMARY | 2018-09-19 20:40 | XMS REPORT ---
Author Author ANNA MARIE LOMELI Organization [employer] Address Unknown Phone Unavailable Care Team Providers Care Agriculture Professor Name Role Phone ANNA MARIE LOMELI CP Unavailable Allergies, Adverse Reactions, Alerts Substance Reaction Event Type Tetanus Info Not Available Drug Allergy Sulfacetamide Sodium Info Not Available Drug Allergy Penicillin G Potassium Info Not Available Drug Allergy Problems Problem Type Condition Code Onset Dates Condition Status Problem Shoulder pain M25.519 Active Problem Diabetes E11.9 Active Problem Depression F32.9 Active Problem Bronchitis J40 Active Problem Insomnia G47.00 Active Problem Fibromyalgia M79.7 Active Problem Hypertension I10 Active Medications Medication Code System Code Instructions Start Date End Date Status Dosage Lopid [facility] [address]-66 600 MG Orally Twice a day Apr 01, 2015 1 tablet Toprol XL [facility] [address]-10 200 MG May 17, 2014 1 tablet Ibuprofen [facility] [address]-92 800 MG Orally Three times a day Mar 29, 2015 Apr 28, 2015 1 tablet Clonidine HCl [facility] 26032037272 0.1 MG Orally 2 times a day 1 tablet Pravastatin Sodium [facility] [address]-80 20 MG Orally Once a day Apr 01, 2015 1 tablet Trazodone HCl [facility] [address]-62 100 MG Orally Once a day Apr 11, 2015 1 tablet at bedtime Cozaar [facility] [address]-76 100 MG 1 TAB orally once a day May 17, 2014 1 tablet by Oral route 1 time per day Celexa [facility] 97815139209 20 MG Orally Once a day 1 tablet Vital Signs Date/Time: Apr 27, 2015 Blood Pressure Diastolic 68 mmHg Blood Pressure Systolic 122 mmHg Height 61 in Results No Known Results Summary Purpose [employer] Submission
--- OUTSIDE RECORDS SUMMARY | 2018-09-19 20:40 | XMS REPORT ---
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 Name Role Phone LALITA ARZATE Unavailable PROBLEMS Type Condition ICD9-CM Code UIW15-CN Code Onset Dates Condition Status SNOMED Code Problem Anxiety associated with depression F41.8 Active 030948592 Problem Long-term use of high-risk medication Z79.899 Active 220348573 Problem Hyperlipidemia LDL goal <70 E78.5 Active 27132457 Problem Insomnia G47.00 Active 486377171 Problem Hypertension I10 Active 11544202 Problem Fibromyalgia M79.7 Active 64420519 Problem Chronic fatigue R53.82 Active 44386724 Problem Overweight (BMI 25.0-29.9) E66.3 Active 025395131 Problem Type 2 diabetes mellitus without complication, without long-term current use of insulin E11.9 Active 223799185 Problem Arthritis M19.90 Active 9375601 Problem Chronic maxillary sinusitis J32.0 Active 89564549 Problem Adjustment disorder with anxiety F43.22 Active 52178874 ALLERGIES No Information ENCOUNTERS Encounter Location Date Diagnosis [place] [id number] [address] 19 Oct, 2017 Hyperlipidemia LDL goal <70 E78.5 [facility] [id number] [place] [address] 18 Oct, 2017 Type 2 diabetes mellitus without complication, without long-term current use of insulin E11.9 ; Hyperlipidemia LDL goal <70 E78.5 ; Hypertension I10 ; Fibromyalgia M79.7 and Chronic fatigue R53.82 [facility] [address] [address] 15 Oct, 2017 Type 2 diabetes mellitus without complication, without long-term current use of insulin E11.9 ; Hyperlipidemia LDL goal <70 E78.5 ; Hypertension I10 ; Fibromyalgia M79.7 ; Chronic fatigue R53.82 and Overweight (BMI 25.0-29.9) E66.[address] [address] Aug, Hypertension I10 and Dyshidrotic eczema L30.[address] [address] Jun, Hyperlipidemia LDL goal <[address] [address] Jun, Arthritis M19.[address] [address] May, Hypertension I10 ; Anxiety associated with depression F41.8 ; Hyperlipidemia LDL goal <70 E78.5 and Chronic maxillary sinusitis J32.[address] [address] May, Acute non-recurrent maxillary sinusitis J01.00 and Sore throat J02.[address] [address] May, Dysthymia F34.[address] [address] Apr, Hypertension I10 [address] [address] Apr, Cough R05 ; Sore throat J02.9 and Bronchitis J40 [address] [address] Mar, Anxiety associated with depression F41.8 ; Adjustment disorder with anxiety F43.22 and Depression F32.[address] [address] Mar, [address] [address] Mar, Type 2 diabetes mellitus without complication, without long-term current use of insulin E11.9 ; Hypertension I10 ; Hyperlipidemia LDL goal <70 E78.5 ; Arthritis M19.90 ; Long-term use of high-risk medication Z79.899 and Dysthymia F34.1 [place] [address] [place] [id number] [place] [address] Mar, [place] [address] [address] Mar, [facility] [address] [place] [id number] [place] [address] Feb, [place] [address] [address] Feb, Acute right hip pain M25.551 and Hypertension I10 [place] [address] [place] [id number] [place] [address] Feb, Diabetes E11.9 [place] [address] [place] [id number] [place] [address] Jan, Hypertension I10 [place] [address] [place] [id number] [place] [address] Jan, Hypertension I10 [place] [address] [place] [id number] [place] [address] Dec, Dysuria R30.0 [place] [address] [place] [id number] [place] [address] Dec, [place] [address] [place] [id number] [place] [address] Dec, Fibromyalgia M79.7 [place] [address] [place] [id number] [place] [address] Dec, Acute recurrent frontal sinusitis J01.11 and Hypertension I10 [place] [address] [place] [id number] [place] [address] Dec, Hypertension I10 [facility] [address] [address] Dec, [facility] [address] [place] [id number] [place] [address] Dec, Hypertension I10 [place] [address] [place] [id number] [place] [address] Nov, [place] [address] [place] [id number] [place] [address] Oct, Fibromyalgia M79.7 ; Hypertension I10 ; Depression F32.9 ; Hypercholesterolemia E78.0 ; Anxiety associated with depression F41.8 and Diabetes E11.9 [place] [address] [place] [id number] [place] [address] September, Essential hypertension I10 ; Diabetes E11.9 ; Anxiety associated with depression F41.8 and Hypercholesterolemia E78.0 [place] [address] [place] [id number] [address] Aug, [place] [address] [place] [id number] [place] [address] Aug, Diabetes E11.9 [place] [address] [place] [id number] [place] [address] Aug, [place] [address] [address] Jul, Acute non-recurrent maxillary sinusitis J01.00 [place] [address] [address] Jul, Anxiety associated with depression F41.8 [place] [address] [place] [id number] [place] [address] Jun, Anxiety associated with depression F41.8 and Hypercholesterolemia E78.0 [place] [address] [address] May, Diabetes E11.9 ; Insomnia G47.00 ; Fibromyalgia M79.7 ; Hypercholesterolemia E78.0 ; Anxiety associated with depression F41.8 and Essential hypertension I10 [facility] [address] [place] [id number] [place] [address] May, [facility] [address] [place] [id number] [place] [address] May, [facility] [address] [address] Mar, [facility] [address] [place] [id number] [place] [address] Mar, Hypertension I10 [facility] [address] [address] Feb, [facility] [address] [address] Feb, [facility] [address] [place] [id number] [place] [address] Feb, Anxiety associated with depression F41.8 ; Chest tightness R07.89 and Elevated blood pressure I10 [place] [id number] [place] [address] Feb, Encounter for immunization Z23 ; Bronchitis J40 ; Diabetes E11.9 ; Hypertension I10 ; Insomnia G47.00 ; Hypercholesterolemia E78.0 ; Depression F32.9 and Fibromyalgia M79.7 [facility] [address] [place] [id number] [place] [address] Jan, Bronchitis J40 and Depression F32.9 [facility] [address] [place] [id number] [place] [address] Jan, Bronchitis J40 [facility] [address] [place] [id number] [place] [address] Dec, [facility] [address] [place] [id number] [place] [address] Dec, [facility] [address] [address] Nov, Acute non-recurrent frontal sinusitis J01.10 and Hypertension I10 [place] [address] [address] Nov, [place] [address] [address] Nov, Diabetes E11.9 ; Fibromyalgia M79.7 ; Hypertension I10 ; Insomnia G47.00 ; Depression F32.9 and Hypercholesterolemia E78.0 [place] [address] [address] Oct, Hypercholesterolemia E78.0 [place] [address] [address] September, [place] [address] [address] Aug, Diabetes E11.9 ; Fibromyalgia M79.7 ; Hypertension I10 ; Insomnia G47.00 ; Depression F32.9 ; Shoulder pain M25.519 ; Hypercholesterolemia E78.0 and Pain in right shoulder M25.511 [place] [address] [address] Jul, [place] [address] [place] [id number] [place] [address] Jun, Hypercholesterolemia E78.0 [place] [address] [address] Jun, [place] [address] [address] May, [place] [address] [address] May, Well woman exam Z01.419 [place] [address] [address] May, Hypertension I10 ; Diabetes E11.9 ; Fibromyalgia M79.7 ; Insomnia G47.00 ; Depression F32.9 and Hypercholesterolemia E78.0 [facility] [address] [address] Apr, [facility] [address] [address] Apr, Fibromyalgia M79.7 ; Hypertension I10 ; Bronchitis J40 ; Insomnia G47.00 ; Depression F32.9 ; Shoulder pain M25.519 and Hypercholesterolemia E78.0 [facility] [address] [address] Mar, Hyperlipemia E78.5 [place] [address] [address] Mar, Diabetes E11.9 ; Hypertension I10 ; Insomnia G47.00 ; Depression F32.9 and Shoulder pain M25.[address] [address] Mar, [place] [address] [address] Feb, [address] [address] Feb, Diabetes E11.9 ; Encounter for immunization Z23 ; Fibromyalgia M79.7 ; Hypertension I10 ; Bronchitis J40 and Insomnia G47.[address] [address] Feb, Bronchitis J40 [facility] [address] [address] Jan, Bronchitis 490 [facility] [address] [address] Aug, [facility] [address] [address] Aug, [facility] [address] [place] [address] Jul, [facility] [place] [facility] [address] [id number] [place] [address] Jul, [facility] [place] [facility] [address] [id number] [place] [address] Jul, [facility] [place] [facility] [address] [facility] [id number] [place] [address] Jul, [facility] [place] [facility] [address] [id number] [place] [address] Jun, [facility] [place] [facility] [address] [id number] [place] [address] Jun, [facility] [place] [facility] [address] [facility] [id number] [place] [address] May, [facility] [place] [facility] [address] [facility] [id number] [place] [address] May, [facility] [place] [facility] [address] [facility] [id number] [place] [address] Apr, [facility] [place] [facility] [address] [facility] [id number] [place] [address] Apr, [facility] [place] [facility] [address] [facility] [id number] [place] [address] Apr, [facility] [place] [facility] [address] [facility] [id number] [place] [address] Apr, [facility] [place] [facility] [address] [facility] [id number] [place] [address] Apr, [facility] [place] [facility] [address] [id number] [place] [address] Apr, [facility] [place] [facility] [address] [facility] [id number] [place] [address] Feb, [facility] [place] [facility] [address] [facility] [id number] [place] [address] Feb, [facility] [place] [facility] [address] [id number] [place] [address] Jan, [facility] [place] [facility] [address] [id number] [place] [address] Jan, [facility] [place] [facility] [address] [id number] [place] [address] Dec, [facility] [place] [facility] [address] [id number] [place] [address] Dec, [facility] [place] [facility] [address] [id number] [place] [address] September, [facility] [place] [facility] [address] [id number] [place] [address] September, [facility] [place] [facility] [address] [id number] [place] [address] September, [facility] [place] [facility] [address] [id number] [place] [address] September, [facility] [place] [facility] [address] [id number] [place] [address] September, [facility] [place] [facility] [address] [id number] [place] [address] September, [facility] [place] [facility] [address] [id number] [place] [address] Aug, [facility] [place] [facility] [address] [id number] [place] [address] Aug, [facility] [place] [facility] [address] [id number] [place] [address] Jul, [facility] [place] [facility] [address] [id number] [place] [address] Jul, [facility] [place] [facility] [address] [id number] [place] [address] May, [facility] [place] [facility] [address] [id number] [place] [address] May, [facility] [address] [id number] [place] [address] May, [facility] [place] [facility] [address] [id number] [place] [address] May, [facility] [place] [facility] [address] [id number] [place] [address] May, [facility] [place] [facility] [address] [id number] [place] [address] May, [facility] [address] [id number] [place] [address] Apr, [facility] [place] [facility] [address] [id number] [place] [address] Apr, [facility] [place] [facility] [address] [id number] [place] [address] Apr, [facility] [place] [facility] [address] [id number] [place] [address] Apr, [facility] [place] [facility] [address] [id number] [place] [address] Apr, [facility] [place] [facility] [address] [id number] [place] [address] Apr, [facility] [place] [facility] [address] [id number] [address] Apr, [facility] [place] [facility] [address] [id number], [place] [address] Apr, [facility] [place] [facility] [address] [id number] [place] [address] Feb, [facility] [place] [facility] [address] [id number] [address] 31 Feb, 2013 [facility] [place] [facility] [address] [id number] [address] 15 Feb, 2013 [facility] [place] [facility] [address] [id number] [place] [address] Feb, [facility] [address] [id number] [place] [address] Feb, [facility] [place] [facility] [address] [id number] [place] [address] Feb, [facility] [address] [id number] [place] [address] Feb, [facility] [place] [facility] [address] [id number] [place] [address] Feb, [facility] [place] [facility] [address] [id number] [place] [address] Nov, [facility] [place] [facility] [address] [id number] [place] [address] Nov, [facility] [address] [id number] [place] [address] Oct, [facility] [place] [facility] [address] [id number] [place] [address] Oct, [facility] [place] [facility] [address] [id number] [place] [address] Oct, [facility] [place] [facility] [address] [id number] [place] [address] September, [facility] [place] [facility] [address] [id number] [place] [address] September, [facility] [place] [facility] [address] [id number] [place] [address] September, [facility] [place] [facility] [address] [id number] [place] [address] September, [facility] [place] [facility] [address] [id number] [place] [address] September, [facility] [place] [facility] [address] [id number] [place] [address] September, [facility] [place] [facility] [address] [id number] [place] [address] September, [facility] [address] [id number] [place] [address] September, [facility] [address] [id number] [place] [address] September, [facility] [address] [id number] [place] [address] September, [facility] [address] [id number] [place] [address] Aug, [facility] [address] [id number] [place] [address] Jul, [facility] [address] [id number] [place] [address] Jun, [facility] [address] [id number] [place] [address] Jun, [facility] [address] [id number] [place] [address] May, [facility] [address] [id number] [place] [address] May, [facility] [address] [id number] [place] [address] Mar, [facility] [address] [id number] [place] [address] Mar, [facility] [place] [facility] [address] [id number] [place] [address] Mar, [facility] [place] [facility] [address] [id number] [place] [address] Mar, [facility] [place] [facility] [address] [id number] [place] [address] Feb, [facility] [place] [facility] [address] [id number], [place] [address] Feb, [facility] [place] [facility] [address] [id number] [place] [address] Feb, [facility] [place] [facility] [address] [id number] [place] [address] Feb, [facility] [place] [facility] [address] [id number] [place] [address] Feb, [facility] [place] [facility] [address] [id number] [place] [address] Feb, [facility] [place] [facility] [address] [id number] [place] [address] Feb, [facility] [place] [facility] [address] [id number] [place] [address] 18 Jan, 2012 [facility] [place] [facility] [address] [id number] [place] [address] 14 Jan, 2012 [facility] [place] [facility] [address] [id number] [place] [address] 10 Jan, 2012 [facility] [place] [facility] [address] [id number] [place] [address] 30 Dec, 2011 [facility] [place] [facility] [address] [id number] [place] [address] Dec, [facility] [place] [facility] [address] [id number] [place] [address] Dec, [facility] [place] [facility] [address] [id number] [place] [address] Nov, [facility] [place] [facility] [address] [id number] [place] [address] Oct, [facility] [place] [facility] [address] [id number] [place] [address] Oct, [facility] [place] [facility] [address] [id number] [place] [address] Oct, [facility] [place] [facility] [address] [id number] [place] [address] Oct, [facility] [address] [id number] [place] [address] Oct, [facility] [address] [id number] [place] [address] Aug, [facility] [address] [id number] [place] [address] Aug, [facility] [address] [id number] [place] [address] Jul, [facility] [address] [facility] [id number] [place] [address] Jun, [facility] [address] [id number][place] [id number] Jun, [facility] [address] [place] [address] May, [facility] [address] [id number] [place] [address] May, [facility] [id number] [place] [address] May, [facility] [address] [id number] [place] [address] May, [facility] [address] [id number] [place] [address] May, [facility] [address] [id number] [place] [address] Apr, [facility] [address] [id number] [place] [address] Apr, [facility] [address] [id number] [place] [address] Apr, [facility] [address] [id number] [place] [address] Apr, [facility] [address] [facility] [id number][place] [address] Apr, [facility] [address] [facility] [id number], [place] [address] Apr, [facility] [address] [facility] [id number], [place] [address] Apr, [facility] [address] [facility] [id number][place] [address] Apr, IMMUNIZATIONS No Known Immunizations SOCIAL HISTORY [...]
--- OUTSIDE RECORDS SUMMARY | 2018-09-19 20:40 | XMS REPORT ---
Author Author ANNA MARIE LOMELI Organization [employer] Address Unknown Phone Unavailable Care Team Providers Care Office Clerk Routine Name Role Phone ANNA MARIE LOMELI CP Unavailable Allergies No Known Allergies Problems Problem Type Condition Code Onset Dates Condition Status Problem Hypertension I10 Active Problem Diabetes E11.9 Active Problem Fibromyalgia M79.7 Active Problem Insomnia G47.00 Active Problem Bronchitis J40 Active Problem Essential hypertension I10 Active Problem Elevated blood pressure I10 Active Problem Anxiety associated with depression F41.8 Active Problem Depression F32.9 Active Problem Shoulder pain M25.519 Active Problem Hypercholesterolemia E78.0 Active Problem Pain in right shoulder M25.511 Active Medications Medication Code System Code Instructions Start Date End Date Status Dosage Clonidine HCl [facility] [address]-68 0.1 MG Orally 2 times a day 1 tablet Lopid [facility] [address]-30 600 MG Orally Twice a day Apr 01, 2015 1 tablet Pravastatin Sodium [facility] [address]-80 20 mg Orally Once a day Apr 01, 2015 1 tablet Results No Known Results Summary Purpose [employer] Submission
--- OUTSIDE RECORDS SUMMARY | 2018-09-19 20:41 | XMS REPORT ---
Author Author ANNA MARIE Allan Organization [facility] Address [address] [place] [address] Care Team Providers Care Remote Sensing Specialist Name Role Phone ANNA MARIE Allan Unavailable PROBLEMS Type Condition ICD9-CM Code MIU35-LB Code Onset Dates Condition Status SNOMED Code Problem Hypertension I10 Active 06381597 Problem Anxiety associated with depression F41.8 Active 478362250 Problem Fibromyalgia M79.7 Active 69591102 Problem Insomnia G47.00 Active 716669670 Problem Chronic maxillary sinusitis J32.0 Active 46063762 Problem Adjustment disorder with anxiety F43.22 Active 45368709 Problem Long-term use of high-risk medication Z79.899 Active 357125752 Problem Hyperlipidemia LDL goal <70 E78.5 Active 76009491 Problem Type 2 diabetes mellitus without complication, without long-term current use of insulin E11.9 Active 557717136 Problem Arthritis M19.90 Active 1998099 ALLERGIES No Information ENCOUNTERS Encounter Location Date Diagnosis [place] [id number] [place] [address] 14 Jun, 2017 Hyperlipidemia LDL goal <70 E78.5 [place] [id number] [place] [address] Jun, Arthritis M19.90 [place] [id number] [place] [address] May, Hypertension I10 ; Anxiety associated with depression F41.8 ; Hyperlipidemia LDL goal <70 E78.5 and Chronic maxillary sinusitis J32.0 [place] [id number] [place] [address] May, Acute non-recurrent maxillary sinusitis J01.00 and Sore throat J02.9 [place] [address] [address] May, Dysthymia F34.1 [place] [address] [address] Apr, Hypertension I10 [address] [address] Apr, Cough R05 ; Sore throat J02.9 and Bronchitis J40 [address] [address] Mar, Anxiety associated with depression F41.8 ; Adjustment disorder with anxiety F43.22 and Depression F32.[address] [address] Mar, [address] [address] Mar, Type 2 diabetes mellitus without complication, without long-term current use of insulin E11.9 ; Hypertension I10 ; Hyperlipidemia LDL goal <70 E78.5 ; Arthritis M19.90 ; Long-term use of high-risk medication Z79.899 and Dysthymia F34.1 [place] [address] [address] Mar, [address] [address] Mar, [place] [address] [address] Feb, [place] [address] [address] Feb, Acute right hip pain M25.551 and Hypertension I10 [place] [address] [address] Feb, Diabetes E11.9 [place] [address] [address] Jan, Hypertension I10 [facility] [address] [address] Jan, Hypertension I10 [facility] [id number] [place] [address] Dec, Dysuria R30.0 [facility] [id number] [place] [address] Dec, [facility] [id number] [place] [address] Dec, Fibromyalgia M79.7 [facility] [id number] [place] [address] Dec, Acute recurrent frontal sinusitis J01.11 and Hypertension I10 [facility] [id number] [place] [address] Dec, Hypertension I10 [facility] [id number] [place] [address] Dec, [facility] [id number] [place] [address] Dec, Hypertension I10 [facility] [id number] [place] [address] Nov, [facility] [id number] [place] [address] Oct, Fibromyalgia M79.7 ; Hypertension I10 ; Depression F32.9 ; Hypercholesterolemia E78.0 ; Anxiety associated with depression F41.8 and Diabetes E11.9 [facility] [address] [address] September, Essential hypertension I10 ; Diabetes E11.9 ; Anxiety associated with depression F41.8 and Hypercholesterolemia E78.0 [facility] [id number] [place] [address] Aug, [facility] [id number] [place] [address] Aug, Diabetes E11.9 [facility] [id number] [place] [address] Aug, [facility] [id number] [place] [address] 13 Jul, 2016 Acute non-recurrent maxillary sinusitis J01.00 [facility] [id number] [place] [address] 06 Jul, 2016 Anxiety associated with depression F41.8 [facility] [id number] [place] [address] Jun, Anxiety associated with depression F41.8 and Hypercholesterolemia E78.0 [facility] [id number] [place] [address] May, Diabetes E11.9 ; Insomnia G47.00 ; Fibromyalgia M79.7 ; Hypercholesterolemia E78.0 ; Anxiety associated with depression F41.8 and Essential hypertension I10 [facility] [address] [address] May, [facility] [id number] [place] [address] May, [facility] [id number] [place] [address] Mar, [facility] [id number] [place] [address] Mar, Hypertension I10 [facility] [address] [address] Feb, [facility] [id number] [place] [address] Feb, [facility] [address] [address] Feb, Anxiety associated with depression F41.8 ; Chest tightness R07.89 and Elevated blood pressure I10 [facility] [id number] [place] [address] 11 Feb, 2016 Encounter for immunization Z23 ; Bronchitis J40 ; Diabetes E11.9 ; Hypertension I10 ; Insomnia G47.00 ; Hypercholesterolemia E78.0 ; Depression F32.9 and Fibromyalgia M79.7 [facility] [address] [address] 27 Jan, 2016 Bronchitis J40 and Depression F32.9 [facility] [address] [address] Jan, Bronchitis J40 [place] [address] [address] Dec, [place] [address] [address] Dec, [place] [address] [address] Nov, Acute non-recurrent frontal sinusitis J01.10 and Hypertension I10 [place] [address] [address] Nov, [place] [address] [address] Nov, Diabetes E11.9 ; Fibromyalgia M79.7 ; Hypertension I10 ; Insomnia G47.00 ; Depression F32.9 and Hypercholesterolemia E78.0 [place] [address] [address] Oct, Hypercholesterolemia E78.0 [place] [address] [address] September, [place] [address] [address] Aug, Diabetes E11.9 ; Fibromyalgia M79.7 ; Hypertension I10 ; Insomnia G47.00 ; Depression F32.9 ; Shoulder pain M25.519 ; Hypercholesterolemia E78.0 and Pain in right shoulder M25.511 [facility] [id number] [place] [address] Jul, [facility] [address] [address] Jun, Hypercholesterolemia E78.0 [facility] [address] [address] Jun, [facility] [address] [address] May, [facility] [address] [address] May, Well woman exam Z01.419 [place] [address] [address] May, Hypertension I10 ; Diabetes E11.9 ; Fibromyalgia M79.7 ; Insomnia G47.00 ; Depression F32.9 and Hypercholesterolemia E78.0 [facility] [id number] [place] [address] Apr, [place] [address] [address] Apr, Fibromyalgia M79.7 ; Hypertension I10 ; Bronchitis J40 ; Insomnia G47.00 ; Depression F32.9 ; Shoulder pain M25.519 and Hypercholesterolemia E78.0 [place] [id number] [place] [address] Mar, Hyperlipemia E78.5 [facility] [id number] [place] [address] Mar, Diabetes E11.9 ; Hypertension I10 ; Insomnia G47.00 ; Depression F32.9 and Shoulder pain M25.519 [facility] [id number] [place] [address] Mar, [facility] [address] [address] Feb, [facility] [id number] [place] [address] Feb, Encounter for immunization Z23 ; Diabetes E11.9 ; Fibromyalgia M79.7 ; Hypertension I10 ; Bronchitis J40 and Insomnia G47.00 [facility] [id number] [place] [address] Feb, Bronchitis J40 [facility] [address] [address] Jan, Bronchitis 490 [facility] [address] [address] Aug, [facility] [address] [address] Aug, [facility] [id number] [place] [address] Jul, [facility] [id number] [place] [address] Jul, [facility] [id number] [place] [address] Jul, [facility] [id number] [place] [address] Jul, [facility] [id number] [place] [address] Jun, [facility] [id number] [place] [address] Jun, [facility] [id number] [place] [address] May, [facility] [id number] [place] [address] May, [facility] [id number] [place] [address] Apr, [facility] [address] [address] [place] [address] Apr, [facility] [place] [facility] [address] [id number] [place] [address] Apr, [facility] [place] [facility] [address] [id number] [place] [address] Apr, [facility] [place] [facility] [address] [id number] [place] [address] Apr, [facility] [place] [facility] [address] [id number] [place] [address] Apr, [facility] [place] [facility] [address] [id number] [place] [address] Feb, [facility] [place] [facility] [address] [id number] [place] [address] Feb, [facility] [place] [facility] [address] [id number] [place] [address] Jan, [facility] [place] [facility] [address] [id number] [place] [address] Jan, [facility] [place] [facility] [address] [id number] [place] [address] Dec, [facility] [place] [facility] [address] [id number] [place] [address] Dec, [facility] [place] [facility] [address] [id number] [place] [address] September, [facility] [place] [facility] [address] [id number] [place] [address] September, [facility] [place] [facility] [address] [id number] [place] [address] September, [facility] [place] [facility] [address] [id number] [place] [address] September, [facility] [place] [facility] [address] [id number] [place] [address] September, [facility] [place] [facility] [address] [id number] [place] [address] September, [facility] [address] [id number] [place] [address] Aug, [facility] [address] [id number] [place] [address] Aug, [facility] [address] [id number] [place] [address] Jul, [facility] [address] [id number] [place] [address] Jul, [facility] [address] [id number] [place] [address] May, [facility] [address] [id number] [place] [address] May, [facility] [address] [id number] [place] [address] May, [facility] [address] [id number] [place] [address] May, [facility] [address] [id number] [place] [address] May, [facility] [address] [id number] [place] [address] May, [facility] [address] [id number] [place] [address] Apr, [facility] [place] [facility] [address] [id number] [place] [address] Apr, [facility] [place] [facility] [address] [id number] [place] [address] Apr, [facility] [place] [facility] [address] [id number] [place] [address] Apr, [facility] [place] [facility] [address] [id number] [place] [address] Apr, [facility] [place] [facility] [address] [id number] [place] [address] Apr, [facility] [place] [facility] [address] [id number] [place] [address] Apr, [facility] [place] [facility] [address] [id number] [place] [address] Apr, [facility] [place] [facility] [address] [id number] [place] [address] Feb, [facility] [place] [facility] [address] [id number] [place] [address] Feb, [facility] [place] [facility] [address] [id number] [place] [address] Feb, [facility] [place] [facility] [address] [id number] [place] [address] Feb, [facility] [place] [facility] [address] [id number] [place] [address] Feb, [facility] [place] [facility] [address] [id number] [place] [address] Feb, [facility] [place] [facility] [address] [id number] [place] [address] Feb, [facility] [place] [facility] [address] [id number], [place] [address] Feb, [facility] [place] [facility] [address] [id number], [place] [address] Nov, [facility] [place] [facility] [address] [id number] [place] [address] Nov, [facility] [place] [facility] [address] [id number] [place] [address] Oct, [facility] [place] [facility] [address] [id number] [place] [address] Oct, [facility] [place] [facility] [address] [id number] [place] [address] Oct, [facility] [address] [id number] [place] [address] September, [facility] [address] [id number] [place] [address] September, [facility] [address] [id number] [place] [address] September, [facility] [address] [id number] [place] [address] September, [facility] [address] [id number] [place] [address] September, [facility] [address] [id number] [place] [address] September, [facility] [address] [id number] [place] [address] September, [facility] [address] [id number] [place] [address] September, [facility] [address] [id number] [place] [address] September, [facility] [address] [id number] [place] [address] September, [facility] [address] [id number] [place] [address] Aug, [facility] [address] [id number] [place] [address] Jul, [facility] [address] [id number] [place] [address] Jun, [facility] [address] [id number] [place] [address] Jun, [facility] [address] [id number] [place] [address] May, [facility] [place] [facility] [address] [id number] [place] [address] May, [facility] [place] [facility] [address] [id number] [place] [address] Mar, [facility] [place] [facility] [address] [id number] [place] [address] Mar, [facility] [place] [facility] [address] [id number] [place] [address] Mar, [facility] [place] [facility] [address] [id number] [place] [address] Mar, [facility] [place] [facility] [address] [id number] [place] [address] Feb, [facility] [place] [facility] [address] [id number] [place] [address] Feb, [facility] [place] [facility] [address] [id number], [place] [address] Feb, [facility] [place] [facility] [address] [id number] [place] [address] Feb, [facility] [place] [facility] [address] [id number], [place] [address] Feb, [facility] [place] [facility] [address] [id number], [place] [address] Feb, [facility] [place] [facility] [address] [id number], [place] [address] Feb, [facility] [place] [facility] [address] [id number] [place] [address] 18 Jan, 2012 [facility] [place] [facility] [address] [id number], [place] [address] 14 Jan, 2012 [facility] [place] [facility] [address] [id number], [place] [address] 10 Jan, 2012 [facility] [place] [facility] [address] [id number] [place] [address] Dec, [facility] [address] [id number] [place] [address] Dec, [facility] [place] [facility] [address] [facility] [id number] [place] [address] Dec, [facility] [place] [facility] [address] [id number] [place] [address] Nov, [facility] [place] [facility] [address] [id number] [place] [address] Oct, [facility] [place] [facility] [address] [id number] [place] [address] Oct, [facility] [place] [facility] [address] [facility] [id number] [place] [address] Oct, [facility] [place] [facility] [address] [id number] [place] [address] Oct, [facility] [place] [facility] [address] [id number] [place] [address] Oct, [facility] [place] [facility] [id number] [place] [address] Aug, [facility] [place] [facility] [id number] [place] [address] Aug, [facility] [place] [facility] [id number] [place] [address] Jul, [facility] [place] [facility] [address] [facility] [id number] [place] [address] Jun, [facility] [address] [id number] [place] [id number] Jun, [facility] [place] [facility] [id number] [place] [address] May, [facility] [place] [facility] [id number] [place] [address] May, [facility] [place] [facility] [address] [facility] [id number], [place] [address] May, [facility] [address] [facility] [id number], [place] [address] May, [facility] [address] [facility] [id number], [place] [address] May, [facility] [address] [facility] [id number], [place] [address] Apr, [facility] [address] [facility] [id number], [place] [address] Apr, [facility] [address] [facility] [id number] [address] Apr, [facility] [address] [facility] [id number], [place] [address] Apr, [facility] [id number] [address] Apr, [facility] [address] [facility] [id number], [place] [address] Apr, [facility] [address] [facility] [id number][place] [address] Apr, [facility] [address] [facility] [id number], [place] [address] Apr, IMMUNIZATIONS No Known Immunizations SOCIAL HISTORY Never Assessed REASON FOR VISIT Refill request PLAN OF CARE VITAL SIGNS MEDICATIONS Medication Instructions Dosage Frequency Start Date End Date Duration Status Atenolol 100 mg Orally Once a day 1 tablet 24h Dec, 30 day(s) Active RESULTS No Results PROCEDURES No Known [...]
--- OUTSIDE RECORDS SUMMARY | 2018-09-19 20:41 | XMS REPORT ---
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 Of [employer] Name Role Phone ANNA MARIE LOMELI CP Unavailable Allergies No Known Allergies Problems Problem Type Condition Code Onset Dates Condition Status Problem Need for prophylactic vaccination and inoculation, Influenza V04.81 Active Problem Insomnia, unspecified 780.52 Active Problem Pain in joint, shoulder region 719.41 Active Problem Lumbago 724.2 Active Problem Other malaise and fatigue 780.79 Active Problem Pain in joint, pelvic region and thigh 719.45 Active Problem 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 Problem Acute pharyngitis 462 Active Problem Fibromyalgia M79.7 Active Problem Hypertension I10 Active Problem Fall from other slipping, tripping, or stumbling E885.9 Active Problem Unspecified myalgia and myositis 729.1 Active Problem Diabetes E11.9 Active Problem Unspecified infective otitis externa 380.10 Active Problem Cramp of limb 729.82 Active Problem Acute sinusitis, unspecified 461.9 Active Problem Bronchitis J40 Active Problem Insomnia G47.00 Active Problem Pure hyperglyceridemia 272.1 Active Problem Unspecified thrombocytopenia 287.[address] of occurrence, home E849.0 Active Problem Unspecified backache 724.5 Active Problem Acute bronchitis 466.0 Active Problem Encounter for long-term (current) use of other medications V58.69 Active Problem Family history of diabetes mellitus V18.0 Active Problem Other atopic dermatitis and related conditions 691.8 Active Medications No Known Medications Results No Known Results Summary Purpose [employer] Submission
--- OUTSIDE RECORDS SUMMARY | 2018-09-19 20:41 | XMS REPORT ---
Author Author DEREK OBED Organization [facility] Address [address] [place] [address] Care Team Providers Care Tripper Name Role Phone OBED REED Unavailable PROBLEMS Type Condition ICD9-CM Code ZYT49-XR Code Onset Dates Condition Status SNOMED Code Problem Hypertension I10 Active 33433215 Problem Anxiety associated with depression F41.8 Active 795550757 Problem Fibromyalgia M79.7 Active 55166418 Problem Insomnia G47.00 Active 010495264 Problem Chronic maxillary sinusitis J32.0 Active 87082467 Problem Adjustment disorder with anxiety F43.22 Active 81577739 Problem Long-term use of high-risk medication Z79.899 Active 845562398 Problem Hyperlipidemia LDL goal <70 E78.5 Active 30788389 Problem Type 2 diabetes mellitus without complication, without long-term current use of insulin E11.9 Active 666325790 Problem Arthritis M19.90 Active 7786055 ALLERGIES No Information ENCOUNTERS Encounter Location Date Diagnosis [place] [address] [id number] [place] [address] Oct, [place] [address] [address] Aug, Hypertension I10 and Dyshidrotic eczema L30.1 [facility] [id number] [place] [address] 14 Jun, 2017 Hyperlipidemia LDL goal <70 E78.5 [facility] [address] [address] Jun, Arthritis M19.90 [place] [id number] [place] [address] May, Hypertension I10 ; Anxiety associated with depression F41.8 ; Hyperlipidemia LDL goal <70 E78.5 and Chronic maxillary sinusitis J32.0 [place] [id number] [place] [address] May, Acute non-recurrent maxillary sinusitis J01.00 and Sore throat J02.9 [place] [id number] [place] [address] May, Dysthymia F34.[address] [address] Apr, Hypertension I10 [address] [address] Apr, Cough R05 ; Sore throat J02.9 and Bronchitis J40 [address] [address] Mar, Anxiety associated with depression F41.8 ; Adjustment disorder with anxiety F43.22 and Depression F32.[address] [address] Mar, [address] [address] Mar, Type 2 diabetes mellitus without complication, without long-term current use of insulin E11.9 ; Hypertension I10 ; Hyperlipidemia LDL goal <70 E78.5 ; Arthritis M19.90 ; Long-term use of high-risk medication Z79.899 and Dysthymia F34.1 [place] [id number] [place] [address] Mar, [address] [address] Mar, [address] [address] Feb, [address] [address] Feb, Acute right hip pain M25.551 and Hypertension I10 [facility] [address] [address] Feb, Diabetes E11.9 [facility] [id number] [place] [address] Jan, Hypertension I10 [facility] [id number] [place] [address] Jan, Hypertension I10 [facility] [id number] [place] [address] Dec, Dysuria R30.0 [facility] [id number] [place] [address] Dec, [facility] [id number] [place] [address] Dec, Fibromyalgia M79.7 [facility] [id number] [place] [address] Dec, Acute recurrent frontal sinusitis J01.11 and Hypertension I10 [facility] [address] [place] [address] Dec, Hypertension I10 [facility] [address] [place] [address] Dec, [facility] [id number] [place] [address] Dec, Hypertension I10 [facility] [address] [place] [address] Nov, [facility] [address] [place] [address] Oct, Fibromyalgia M79.7 ; Hypertension I10 ; Depression F32.9 ; Hypercholesterolemia E78.0 ; Anxiety associated with depression F41.8 and Diabetes E11.9 [facility] [address] [address] September, Essential hypertension I10 ; Diabetes E11.9 ; Anxiety associated with depression F41.8 and Hypercholesterolemia E78.0 [facility] [address] [place] [address] Aug, [facility] [id number] [place] [address] Aug, Diabetes E11.9 [facility] [id number] [place] [address] Aug, [facility] [id number] [place] [address] Jul, Acute non-recurrent maxillary sinusitis J01.00 [facility] [id number] [place] [address] Jul, Anxiety associated with depression F41.8 [facility] [id number] [place] [address] Jun, Anxiety associated with depression F41.8 and Hypercholesterolemia E78.0 [facility] [id number] [place] [address] May, Diabetes E11.9 ; Insomnia G47.00 ; Fibromyalgia M79.7 ; Hypercholesterolemia E78.0 ; Anxiety associated with depression F41.8 and Essential hypertension I10 [facility] [address] [place] [address] May, [facility] [id number] [place] [address] May, [facility] [address] [place] [address] Mar, [facility] [id number] [place] [address] Mar, Hypertension I10 [facility] [address] [place] [address] Feb, [facility] [id number] [place] [address] Feb, [facility] [id number] [place] [address] Feb, Anxiety associated with depression F41.8 ; Chest tightness R07.89 and Elevated blood pressure I10 [place] [id number] [place] [address] Feb, Encounter for immunization Z23 ; Bronchitis J40 ; Diabetes E11.9 ; Hypertension I10 ; Insomnia G47.00 ; Hypercholesterolemia E78.0 ; Depression F32.9 and Fibromyalgia M79.7 [facility] [id number] [place] [address] Jan, Bronchitis J40 and Depression F32.9 [facility] [id number] [place] [address] Jan, Bronchitis J40 [facility] [address] [address] Dec, [facility] [address] [address] Dec, [place] [address] [address] Nov, Acute non-recurrent frontal sinusitis J01.10 and Hypertension I10 [place] [id number] [place] [address] Nov, [facility] [address] [address] Nov, Diabetes E11.9 ; Fibromyalgia M79.7 ; Hypertension I10 ; Insomnia G47.00 ; Depression F32.9 and Hypercholesterolemia E78.0 [place] [id number] [place] [address] Oct, Hypercholesterolemia E78.0 [facility] [id number] [place] [address] September, [facility] [address] [id number] [place] [address] Aug, Diabetes E11.9 ; Fibromyalgia M79.7 ; Hypertension I10 ; Insomnia G47.00 ; Depression F32.9 ; Shoulder pain M25.519 ; Hypercholesterolemia E78.0 and Pain in right shoulder M25.511 [place] [address] [address] Jul, [place] [address] [address] Jun, Hypercholesterolemia E78.[address] [address] Jun, [place] [address] [address] May, [address] [address] May, Well woman exam Z01.[address] [address] May, Hypertension I10 ; Diabetes E11.9 ; Fibromyalgia M79.7 ; Insomnia G47.00 ; Depression F32.9 and Hypercholesterolemia E78.[address] [address] Apr, [address] [address] Apr, Fibromyalgia M79.7 ; Hypertension I10 ; Bronchitis J40 ; Insomnia G47.00 ; Depression F32.9 ; Shoulder pain M25.519 and Hypercholesterolemia E78.[address] [address] Mar, Hyperlipemia E78.[address] [address] Mar, Diabetes E11.9 ; Hypertension I10 ; Insomnia G47.00 ; Depression F32.9 and Shoulder pain M25.519 [facility] [id number] [place] [address] Mar, [facility] [id number] [place] [address] Feb, [facility] [id number] [place] [address] Feb, Diabetes E11.9 ; Encounter for immunization Z23 ; Fibromyalgia M79.7 ; Hypertension I10 ; Bronchitis J40 and Insomnia G47.00 [facility] [id number] [place] [address] Feb, Bronchitis J40 [facility] [address] [address] Jan, Bronchitis 490 [facility] [id number] [place] [address] Aug, [facility] [id number] [place] [address] Aug, [facility] [id number] [place] [address] Jul, [facility] [id number] [place] [address] Jul, [facility] [id number] [place] [address] Jul, [facility] [id number] [place] [address] Jul, [facility] [id number] [place] [address] Jun, [facility] [id number] [place] [address] Jun, [facility] [id number] [place] [address] May, [facility] [address] [place] [id number] [place] [address] May, [facility] [address] [id number] [place] [address] Apr, [facility] [place] [facility] [address] [id number] [place] [address] Apr, [facility] [address] [id number] [place] [address] Apr, [facility] [place] [facility] [address] [id number] [place] [address] Apr, [facility] [place] [facility] [address] [id number] [place] [address] Apr, [facility] [place] [facility] [address] [id number] [place] [address] Apr, [facility] [place] [facility] [address] [id number] [place] [address] Feb, [facility] [address] [id number] [place] [address] Feb, [facility] [place] [facility] [address] [id number] [place] [address] Jan, [facility] [place] [facility] [address] [id number] [place] [address] Jan, [facility] [place] [facility] [address] [id number] [place] [address] Dec, [facility] [place] [facility] [address] [id number] [place] [address] Dec, [facility] [place] [facility] [address] [id number] [place] [address] September, [facility] [place] [facility] [address] [id number] [place] [address] September, [facility] [place] [facility] [address] [id number] [place] [address] September, [facility] [place] [facility] [address] [id number] [place] [address] September, [facility] [place] [facility] [address] [id number] [place] [address] September, [facility] [place] [facility] [address] [id number] [place] [address] September, [facility] [place] [facility] [address] [id number] [place] [address] Aug, [facility] [place] [facility] [address] [id number] [place] [address] Aug, [facility] [place] [facility] [address] [id number] [place] [address] Jul, [facility] [place] [facility] [address] [id number] [place] [address] Jul, [facility] [place] [facility] [address] [id number] [place] [address] May, [facility] [place] [facility] [address] [id number] [place] [address] May, [facility] [place] [facility] [address] [id number] [place] [address] May, [facility] [place] [facility] [address] [id number] [place] [address] May, [facility] [place] [facility] [address] [id number] [place] [address] May, [facility] [place] [facility] [address] [id number] [place] [address] May, [facility] [place] [facility] [address] [id number] [place] [address] Apr, [facility] [place] [facility] [address] [id number] [place] [address] Apr, [facility] [place] [facility] [address] [id number] [place] [address] Apr, 2012 [facility] [place] [facility] [address] [id number] [place] [address] 19 Apr, 2012 [facility] [place] [facility] [address] [id number] [place] [address] 16 Apr, 2013 [facility] [place] [facility] [address] [id number] [place] [address] 16 Apr, 2013 [facility] [place] [facility] [address] [id number] [place] [address] Apr, [facility] [place] [facility] [address] [id number] [place] [address] Apr, [facility] [place] [facility] [address] [id number] [place] [address] Feb, [facility] [place] [facility] [address] [id number] [place] [address] Feb, [facility] [place] [facility] [address] [id number] [place] [address] Feb, [facility] [place] [facility] [address] [id number] [place] [address] 15 Feb, 2013 [facility] [place] [facility] [address] [id number] [place] [address] Feb, [facility] [place] [facility] [address] [id number] [place] [address] Feb, 2012 [facility] [place] [facility] [address] [id number], [place] [address] Feb, [facility] [place] [facility] [address] [id number] [place] [address] Feb, [facility] [place] [facility] [address] [id number], [place] [address] Nov, [facility] [place] [facility] [address] [id number], [place] [address] Nov, [facility] [place] [facility] [address] [id number] [place] [address] Oct, [facility] [address] [id number] [place] [address] Oct, [facility] [place] [facility] [address] [id number] [place] [address] Oct, [facility] [address] [id number] [place] [address] September, [facility] [address] [id number] [place] [address] September, [facility] [address] [id number] [place] [address] September, [facility] [address] [id number] [place] [address] September, [facility] [address] [id number] [place] [address] September, [facility] [address] [id number] [place] [address] September, [facility] [address] [id number] [place] [address] September, [facility] [address] [id number] [place] [address] September, [facility] [address] [id number] [place] [address] September, [facility] [address] [id number] [place] [address] September, [facility] [place] [facility] [address] [id number] [place] [address] Aug, [facility] [place] [facility] [address] [id number] [place] [address] Jul, [facility] [place] [facility] [address] [id number] [place] [address] Jun, [facility] [place] [facility] [address] [id number] [place] [address] Jun, [facility] [place] [facility] [address] [id number] [place] [address] May, [facility] [place] [facility] [address] [facility] [id number] [place] [address] May, [facility] [place] [facility] [address] [id number], [place] [address] Mar, [facility] [place] [facility] [address] [id number] [place] [address] Mar, [facility] [place] [facility] [address] [facility] [id number] [place] [address] Mar, [facility] [place] [facility] [address] [facility] [id number] [place] [address] Mar, [facility] [place] [facility] [address] [id number], [place] [address] Feb, [facility] [place] [facility] [address] [id number], [place] [address] Feb, [facility] [place] [facility] [address] [facility] [id number], [place] [address] Feb, [facility] [place] [facility] [address] [id number], [place] [address] Feb, [facility] [place] [facility] [address] [id number], [place] [address] Feb, [facility] [place] [facility] [address] [id number] [place] [address] Feb, [facility] [place] [facility] [address] [facility] [id number], [place] [address] Feb, [facility] [place] [facility] [address] [facility] [id number], [place] [address] Jan, [facility] [place] [facility] [address] [id number] [place] [address] 14 Jan, 2012 [facility] [address] [id number] [place] [address] 10 Jan, 2012 [facility] [address] [facility] [id number] [place] [address] 30 Dec, 2011 [facility] [address] [facility] [id number] [place] [address] Dec, [facility] [address] [facility] [id number] [place] [address] Dec, [facility] [address] [facility] [id number] [place] [address], [place] [address] Nov, [facility] [address] [facility] [id number] [place] [address] Oct, [facility] [address] [place] [address] Oct, [facility] [id number] [place] [address] Oct, [facility] [address] [place] [address] Oct, [facility] [id number] [address] Oct, [facility] [id number] [place] [address] Aug, [facility] [address] [facility] [id number] [address] Aug, [facility] [id number] [place] [address] Jul, [facility] [address] [facility] [id number], [place] [address] Jun, [facility] [address] [id number] [id number] Jun, [facility] [address] [facility] [id number], [place] [address] May, [facility] [id number] [address] May, [facility] [id number] [address] May, [facility] [id number] [address] May, [facility] [address] [facility] [id number], [place] [address] May, [facility] [id number] [address] Apr, [facility] [id number] [address] Apr, [facility] [id number] [address] Apr, [facility] [id number] [address] Apr, [facility] [id number] [address] Apr, [facility] [id number] [address] Apr, [facility] [id number] [address] Apr, [facility] [id number] [address] Apr, IMMUNIZATIONS No Known Immunizations SOCIAL HISTORY Never Assessed REASON FOR VISIT Blood pressure check---JEFFREY Reed PLAN OF CARE VITAL SIGNS Height 61 in 2017-03-08 Blood pressure systolic 158 mmHg 2017-03-08 Blood pressure diastolic 84 mmHg 2017-03-08 MEDICATIONS Medication Instructions Dosage Frequency Start Date End Date Duration Status Losartan Potassium 100 mg Orally Once a day TAKE ONE TABLET BY MOUTH DAILY 24h Active Celebrex 100 mg Orally Once a day 1 capsule with food 24h Feb, Mar, 30 day(s) Active Atenolol 100 mg Orally Once a day 1 tablet 24h Dec, Active metformin 850 mg by oral route twice a day take 1 tablet 2 times per day with morning and evening meals 12h May, 30 days Active Metoprolol Succinate 100 mg Orally Once a day 1 tablet 24h Feb, Aug, 90 days Active Clonidine HCl 0.1 MG Orally 2 times a day 1 tablet 12h Active Ibuprofen 800 MG 1 tablet with food or milk Three times a day Orally 30 day(s) 30 Active Pravastatin Sodium 20 mg Orally Once a day 1 tablet 24h Mar, 30 days Active Lopid 600 MG Orally Twice a day 1 tablet 12h Mar, 30 days Active RESULTS No Results PROCEDURES [...]
--- OUTSIDE RECORDS SUMMARY | 2018-09-19 20:41 | XMS REPORT ---
Author Author ANNA MARIE LOMELI Organization [employer] Address Unknown Phone Unavailable Care Team Providers Care Scientific Programmer Analyst Name Role Phone ANNA MARIE LOMELI CP Unavailable Allergies, Adverse Reactions, Alerts Substance Reaction Event Type Tetanus Info Not Available Drug Allergy Sulfacetamide Sodium Info Not Available Drug Allergy Penicillin G Potassium Info Not Available Drug Allergy Problems Problem Type Condition Code Onset Dates Condition Status Assessment Fibromyalgia M79.7 Active Assessment Hypertension I10 Active Assessment Diabetes E11.9 Active Problem Shoulder pain M25.519 Active Problem Diabetes E11.9 Active Problem Depression F32.9 Active Problem Bronchitis J40 Active Problem Insomnia G47.00 Active Problem Fibromyalgia M79.7 Active Problem Hypertension I10 Active Assessment Hypercholesterolemia E78.0 Active Assessment Depression F32.9 Active Assessment Insomnia G47.00 Active Medications Medication Code System Code Instructions Start Date End Date Status Dosage Toprol XL [facility] [address]-39 200 MG May 17, 2014 1 tablet Celexa [facility] 75103467764 20 MG Orally Once a day 1 tablet Cozaar [facility] [address]-26 100 MG 1 TAB orally once a day May 17, 2014 1 tablet by Oral route 1 time per day Trazodone HCl [facility] [address]-61 100 MG Orally Once a day Apr 11, 2015 1 tablet at bedtime Lopid [facility] [address]-88 600 MG Orally Twice a day Apr 01, 2015 1 tablet Pravastatin Sodium [facility] [address]-21 20 MG Orally Once a day Apr 01, 2015 1 tablet Clonidine HCl [facility] 29085882431 0.1 MG Orally 2 times a day 1 tablet Procedures Procedure Coding System Code Date Office Visit, Est Pt., Level 4 CPT-4 10501 May 12, 2015 Vital Signs Date/Time: May 12, 2015 Temperature 96.9 F Weight 148.0 lbs Height 61 in BMI 27.96 Index Blood Pressure Diastolic 82 mmHg Blood Pressure Systolic 138 mmHg Cardiac Monitoring Heart Rate 72 bpm Results No Known Results Summary Purpose [employer] Submission
--- OUTSIDE RECORDS SUMMARY | 2018-09-19 20:42 | XMS REPORT ---
Author Author ANNA MARIE LOMELI Organization [employer] Address Unknown Phone Unavailable Care Team Providers Care Degreasing Wheel Operator Name Role Phone ANNA MARIE LOMELI CP [...] Instructions Start Date End Date Status Dosage Cymbalta [facility] [address]-98 60 mg Orally Once a day Mar 01, 2016 1 capsule Toprol XL [facility] [address]-89 100 MG Orally Once a day May 17, 2014 2 tablets Results No Known Results Summary Purpose [employer] Submission
--- OUTSIDE RECORDS SUMMARY | 2018-09-19 20:42 | XMS REPORT ---
Author Author LALITA ARZATE [facility] Address [address] [place] [address] Care Team Providers Care [employer] Manager Name Role Phone LALITA ARZATE Unavailable PROBLEMS Type Condition ICD9-CM Code MHB85-SG Code Onset Dates Condition Status SNOMED Code Problem Hypertension I10 Active 63497048 Problem Anxiety associated with depression F41.8 Active 922360894 Problem Fibromyalgia M79.7 Active 76946590 Problem Insomnia G47.00 Active 950070029 Problem Chronic maxillary sinusitis J32.0 Active 68889475 Problem Adjustment disorder with anxiety F43.22 Active 02547517 Problem Long-term use of high-risk medication Z79.899 Active 064382899 Problem Hyperlipidemia LDL goal <70 E78.5 Active 98154425 Problem Type 2 diabetes mellitus without complication, without long-term current use of insulin E11.9 Active 017075593 Problem Arthritis M19.90 Active 4845209 ALLERGIES No Information ENCOUNTERS Encounter Location Date Diagnosis [place] [id number] [place] [address] Oct, [place] [address] [place] [id number] [place] [address] Aug, Hypertension I10 and Dyshidrotic eczema L30.1 [place] [id number] [place] [address] Jun, Hyperlipidemia LDL goal <70 E78.5 [place] [id number] [place] [address] Jun, Arthritis M19.90 [place] [address] [place] [id number] [place] [address] May, Hypertension I10 ; Anxiety associated with depression F41.8 ; Hyperlipidemia LDL goal <70 E78.5 and Chronic maxillary sinusitis J32.0 [place] [address] [place] [id number] [place] [address] May, Acute non-recurrent maxillary sinusitis J01.00 and Sore throat J02.9 [place] [address] [place] [id number] [place] [address] May, Dysthymia F34.1 [place] [address] [address] Apr, Hypertension I10 [address] [address] Apr, Cough R05 ; Sore throat J02.9 and Bronchitis J40 [address] [address] Mar, Anxiety associated with depression F41.8 ; Adjustment disorder with anxiety F43.22 and Depression F32.9 [place] [address] [place] [id number] [place] [address] Mar, [address] [address] Mar, Type 2 diabetes mellitus without complication, without long-term current use of insulin E11.9 ; Hypertension I10 ; Hyperlipidemia LDL goal <70 E78.5 ; Arthritis M19.90 ; Long-term use of high-risk medication Z79.899 and Dysthymia F34.1 [place] [address] [place] [id number] [place] [address] Mar, [place] [address] [address] Mar, [place] [address] [place] [id number] [place] [address] Feb, [place] [address] [place] [id number] [place] [address] Feb, Acute right hip pain M25.551 and Hypertension I10 [facility] [address] [place] [id number] [place] [address] Feb, Diabetes E11.9 [facility] [address] [place] [id number] [place] [address] Jan, Hypertension I10 [facility] [address] [address] [id number] [place] [address] Jan, Hypertension I10 [facility] [address] [place] [id number] [place] [address] Dec, Dysuria R30.0 [facility] [address] [place] [id number] [place] [address] Dec, [facility] [address] [address] [id number] [place] [address] Dec, Fibromyalgia M79.7 [facility] [address] [place] [id number] [place] [address] Dec, Acute recurrent frontal sinusitis J01.11 and Hypertension I10 [facility] [address] [place] [id number] [place] [address] Dec, Hypertension I10 [facility] [address] [place] [id number] [place] [address] Dec, [facility] [address] [place] [id number] [place] [address] Dec, Hypertension I10 [facility] [address] [place] [id number] [place] [address] Nov, [facility] [address] [place] [id number] [place] [address] Oct, Fibromyalgia M79.7 ; Hypertension I10 ; Depression F32.9 ; Hypercholesterolemia E78.0 ; Anxiety associated with depression F41.8 and Diabetes E11.9 [facility] [address] [place] [address] September, Essential hypertension I10 ; Diabetes E11.9 ; Anxiety associated with depression F41.8 and Hypercholesterolemia E78.0 [facility] [address] [place] [id number] [place] [address] Aug, [facility] [address] [place] [id number] [place] [address] Aug, Diabetes E11.9 [facility] [address] [place] [id number] [place] [address] Aug, [facility] [address] [place] [id number] [place] [address] Jul, Acute non-recurrent maxillary sinusitis J01.00 [facility] [address] [place] [id number] [place] [address] Jul, Anxiety associated with depression F41.8 [facility] [address] [place] [id number] [place] [address] Jun, Anxiety associated with depression F41.8 and Hypercholesterolemia E78.0 [facility] [address] [place] [id number] [place] [address] May, Diabetes E11.9 ; Insomnia G47.00 ; Fibromyalgia M79.7 ; Hypercholesterolemia E78.0 ; Anxiety associated with depression F41.8 and Essential hypertension I10 [facility] [address] [place] [address] May, [facility] [address] [place] [id number] [place] [address] May, [facility] [address] [place] [id number] [place] [address] Mar, [facility] [address] [place] [id number] [place] [address] Mar, Hypertension I10 [facility] [address] [place] [id number] [place] [address] Feb, [facility] [address] [place] [id number] [place] [address] Feb, [facility] [address] [place] [id number] [place] [address] Feb, Anxiety associated with depression F41.8 ; Chest tightness R07.89 and Elevated blood pressure I10 [place] [address] [place] [id number] [place] [address] Feb, Encounter for immunization Z23 ; Bronchitis J40 ; Diabetes E11.9 ; Hypertension I10 ; Insomnia G47.00 ; Hypercholesterolemia E78.0 ; Depression F32.9 and Fibromyalgia M79.7 [facility] [address] [place] [id number] [place] [address] Jan, Bronchitis J40 and Depression F32.9 [facility] [address] [place] [id number] [place] [address] Jan, Bronchitis J40 [facility] [address] [address] Dec, [facility] [address] [place] [id number] [place] [address] Dec, [place] [address] [place] [id number] [place] [address] Nov, Acute non-recurrent frontal sinusitis J01.10 and Hypertension I10 [place] [address] [place] [id number] [place] [address] Nov, [facility] [address] [address] Nov, Diabetes E11.9 ; Fibromyalgia M79.7 ; Hypertension I10 ; Insomnia G47.00 ; Depression F32.9 and Hypercholesterolemia E78.0 [place] [address] [place] [id number] [place] [address] Oct, Hypercholesterolemia E78.0 [facility] [address] [place] [id number] [place] [address] September, [place] [address] [place] [id number] [place] [address] Aug, Diabetes E11.9 ; Fibromyalgia M79.7 ; Hypertension I10 ; Insomnia G47.00 ; Depression F32.9 ; Shoulder pain M25.519 ; Hypercholesterolemia E78.0 and Pain in right shoulder M25.511 [place] [address] [address] Jul, [place] [address] [address] Jun, Hypercholesterolemia E78.0 [place] [address] [address] Jun, [place] [address] [address] May, [place] [address] [address] May, Well woman exam Z01.419 [place] [address] [address] May, Hypertension I10 ; Diabetes E11.9 ; Fibromyalgia M79.7 ; Insomnia G47.00 ; Depression F32.9 and Hypercholesterolemia E78.0 [place] [address] [place] [id number] [place] [address] Apr, [address] [address] Apr, Fibromyalgia M79.7 ; Hypertension I10 ; Bronchitis J40 ; Insomnia G47.00 ; Depression F32.9 ; Shoulder pain M25.519 and Hypercholesterolemia E78.[address] [address] Mar, Hyperlipemia E78.5 [place] [address] [place] [id number] [place] [address] Mar, Diabetes E11.9 ; Hypertension I10 ; Insomnia G47.00 ; Depression F32.9 and Shoulder pain M25.519 [facility] [address] [place] [id number] [place] [address] Mar, [facility] [address] [place] [id number] [place] [address] Feb, [facility] [address] [place] [id number] [place] [address] Feb, Encounter for immunization Z23 ; Diabetes E11.9 ; Fibromyalgia M79.7 ; Hypertension I10 ; Bronchitis J40 and Insomnia G47.00 [facility] [address] [place] [id number] [place] [address] Feb, Bronchitis J40 [facility] [address] [address] Jan, Bronchitis 490 [facility] [address] [address] Aug, [facility] [address] [address] Aug, [facility] [address] [place] [id number] [place] [address] Jul, [facility] [address] [place] [id number] [place] [address] Jul, [facility] [address] [place] [id number] [place] [address] Jul, [facility] [address] [place] [id number] [place] [address] Jul, [facility] [address] [place] [id number] [place] [address] Jun, [facility] [address] [place] [id number] [place] [address] Jun, [facility] [address] [place] [id number] [place] [address] May, [facility] [place] [facility] [address] [id number] [place] [address] May, [facility] [place] [facility] [address] [id number] [place] [address] Apr, [facility] [place] [facility] [address] [id number] [place] [address] Apr, [facility] [place] [facility] [address] [id number] [place] [address] Apr, [facility] [place] [facility] [address] [id number] [place] [address] Apr, [facility] [place] [facility] [address] [id number] [place] [address] Apr, [facility] [place] [facility] [address] [id number] [place] [address] Apr, [facility] [place] [facility] [address] [id number] [place] [address] Feb, [facility] [place] [facility] [address] [id number] [place] [address] Feb, [facility] [place] [facility] [address] [id number] [place] [address] Jan, [facility] [place] [facility] [address] [id number] [place] [address] Jan, [facility] [place] [facility] [address] [id number] [place] [address] Dec, [facility] [place] [facility] [address] [id number] [place] [address] Dec, [facility] [place] [facility] [address] [id number] [place] [address] September, [facility] [place] [facility] [address] [id number] [place] [address] September, [facility] [place] [facility] [address] [id number] [place] [address] September, [facility] [place] [facility] [address] [id number] [place] [address] September, [facility] [place] [facility] [address] [id number] [place] [address] September, [facility] [place] [facility] [address] [id number] [place] [address] September, [facility] [place] [facility] [address] [id number] [place] [address] Aug, [facility] [place] [facility] [address] [id number] [place] [address] Aug, [facility] [place] [facility] [address] [id number] [place] [address] Jul, [facility] [place] [facility] [address] [id number] [place] [address] Jul, [facility] [place] [facility] [address] [id number] [place] [address] May, [facility] [place] [facility] [address] [id number] [place] [address] May, [facility] [place] [facility] [address] [id number] [place] [address] May, [facility] [place] [facility] [address] [id number] [place] [address] May, [facility] [place] [facility] [address] [id number] [place] [address] May, [facility] [place] [facility] [address] [id number] [place] [address] May, [facility] [place] [facility] [address] [id number] [place] [address] Apr, [facility] [place] [facility] [address] [id number] [place] [address] Apr, [facility] [place] [facility] [address] [id number] [place] [address] Apr, 2012 [facility] [place] [facility] [address] [id number] [place] [address] 19 Apr, 2012 [facility] [place] [facility] [address] [id number] [place] [address] 16 Apr, 2012 [facility] [place] [facility] [address] [id number] [place] [address] 16 Apr, 2012 [facility] [place] [facility] [address] [id number] [place] [address] Apr, [facility] [place] [facility] [address] [id number] [place] [address] Apr, [facility] [place] [facility] [address] [id number] [place] [address] Feb, [facility] [place] [facility] [address] [id number] [place] [address] Feb, [facility] [place] [facility] [address] [id number] [place] [address] Feb, [facility] [place] [facility] [address] [id number] [place] [address] 15 Feb, 2013 [facility] [place] [facility] [address] [id number] [place] [address] Feb, [facility] [place] [facility] [address] [id number] [place] [address] Feb, [facility] [place] [facility] [address] [id number] [place] [address] Feb, [facility] [place] [facility] [address] [id number] [place] [address] Feb, [facility] [place] [facility] [address] [id number] [place] [address] Nov, [facility] [place] [facility] [address] [id number] [place] [address] Nov, [facility] [place] [facility] [address] [id number] [place] [address] Oct, [facility] [address] [id number] [place] [address] Oct, [facility] [address] [id number] [place] [address] Oct, [facility] [address] [id number] [place] [address] September, [facility] [address] [id number] [place] [address] September, [facility] [address] [id number] [place] [address] September, [facility] [address] [id number] [place] [address] September, [facility] [address] [id number] [place] [address] September, [facility] [address] [id number] [place] [address] September, [facility] [address] [id number] [place] [address] September, [facility] [address] [id number] [place] [address] September, [facility] [address] [id number] [place] [address] September, [facility] [address] [id number] [place] [address] September, [facility] [address] [id number] [place] [address] Aug, [facility] [address] [id number] [place] [address] Jul, [facility] [address] [id number] [place] [address] Jun, [facility] [place] [facility] [address] [id number] [place] [address] Jun, [facility] [place] [facility] [address] [facility] [id number] [place] [address] May, [facility] [place] [facility] [address] [facility] [id number] [place] [address] May, [facility] [place] [facility] [address] [id number] [place] [address] Mar, [facility] [place] [facility] [address] [id number] [place] [address] Mar, [facility] [place] [facility] [address] [facility] [id number] [place] [address] Mar, [facility] [place] [facility] [address] [facility] [id number] [place] [address] Mar, [facility] [place] [facility] [address] [facility] [id number] [place] [address] Feb, [facility] [place] [facility] [address] [facility] [id number] [place] [address] Feb, [facility] [place] [facility] [address] [facility] [id number] [place] [address] Feb, [facility] [place] [facility] [address] [facility] [id number] [place] [address] Feb, [facility] [place] [facility] [address] [facility] [id number] [place] [address] Feb, [facility] [place] [facility] [address] [facility] [id number] [place] [address] Feb, [facility] [place] [facility] [address] [facility] [id number] [place] [address] Feb, [facility] [place] [facility] [address] [facility] [id number] [place] [address] Jan, [facility] [place] [facility] [address] [id number] [place] [address] 14 Jan, 2012 [facility] [place] [facility] [address] [id number] [place] [address] 10 Jan, 2012 [facility] [place] [facility] [address] [facility] [id number] [place] [address] 30 Dec, 2011 [facility] [place] [facility] [address] [id number] [place] [address] Dec, [facility] [place] [facility] [address] [facility] [id number] [place] [address] Dec, [facility] [place] [facility] [address] [facility] [id number] [place] [address] Nov, [facility] [place] [facility] [address] [facility] [id number] [place] [address] Oct, [facility] [place] [facility] [address] [id number] [place] [address] Oct, [facility] [address] [facility] [id number] [place] [address] Oct, [facility] [place] [facility] [address] [id number] [place] [address] Oct, [facility] [address] [id number] [place] [address] Oct, [facility] [place] [facility] [address] [address] [id number] [place] [address] 24 Aug, 2011 [facility] [place] [facility] [address] [facility] [id number] [place] [address] Aug, [facility] [place] [facility] [address] [facility] [id number] [place] [address] Jul, [facility] [place] [facility] [address] [facility] [id number] [place] [address] 20 Jun, 2011 [facility] [place] [address] [facility] [id number] [id number] Jun, [facility] [address] [id number] [address] May, [facility] [id number] [address] May, [facility] [id number] [address] May, [facility] [id number] [address] May, [facility] [id number] [address] May, [facility] [id number] [address] Apr, [facility] [id number] [address] Apr, [facility] [id number] [address] Apr, [facility] [id number] [address] Apr, [facility] [id number] [address] Apr, [facility] [id number] [address] Apr, [facility] [id number] [address] Apr, [facility] [id number] [address] Apr, IMMUNIZATIONS No Known Immunizations SOCIAL HISTORY Never Assessed REASON FOR VISIT Refill request PLAN OF CARE VITAL SIGNS MEDICATIONS Medication Instructions Dosage Frequency Start Date End Date Duration Status Fluoxetine HCl 10 mg Orally Once a day 1 tablet in the morning 24h Mar, 30 day(s) Active RESULTS No Results PROCEDURES [...]
--- OUTSIDE RECORDS SUMMARY | 2018-09-19 20:43 | XMS REPORT ---
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 Name Role Phone ANNA MARIE Allan Unavailable PROBLEMS Type Condition ICD9-CM Code [id number] Code Onset Dates Condition Status SNOMED Code Problem Hypertension I10 Active 66239079 Problem Anxiety associated with depression F41.8 Active 292017474 Problem Fibromyalgia M79.7 Active 28505109 Problem Insomnia G47.00 Active 635465957 Problem Chronic maxillary sinusitis J32.0 Active 35559127 Problem Adjustment disorder with anxiety F43.22 Active 33130793 Problem Long-term use of high-risk medication Z79.899 Active 550017008 Problem Hyperlipidemia LDL goal <70 E78.5 Active 39321393 Problem Type 2 diabetes mellitus without complication, without long-term current use of insulin E11.9 Active 746475012 Problem Arthritis M19.90 Active 7551381 ALLERGIES No Information ENCOUNTERS Encounter Location Date Diagnosis [place] [id number] [place] [address] Oct, [place] [id number] [place] [address] Aug, Hypertension I10 and Dyshidrotic eczema L30.1 [place] [id number] [place] [address] 14 Jun, 2017 Hyperlipidemia LDL goal <70 E78.5 [place] [address] [address] Jun, Arthritis M19.90 [place] [id number] [place] [address] May, Hypertension I10 ; Anxiety associated with depression F41.8 ; Hyperlipidemia LDL goal <70 E78.5 and Chronic maxillary sinusitis J32.0 [place] [id number] [place] [address] May, Acute non-recurrent maxillary sinusitis J01.00 and Sore throat J02.9 [place] [id number] [place] [address] May, Dysthymia F34.1 [place] [address] [address] Apr, Hypertension I10 [address] [address] Apr, Cough R05 ; Sore throat J02.9 and Bronchitis J40 [address] [address] Mar, Anxiety associated with depression F41.8 ; Adjustment disorder with anxiety F43.22 and Depression F32.9 [place] [id number] [place] [address] Mar, [address] [address] Mar, Type 2 diabetes mellitus without complication, without long-term current use of insulin E11.9 ; Hypertension I10 ; Hyperlipidemia LDL goal <70 E78.5 ; Arthritis M19.90 ; Long-term use of high-risk medication Z79.899 and Dysthymia F34.1 [place] [id number] [place] [address] Mar, [place] [id number] [place] [address] Mar, [place] [id number] [place] [address] Feb, [place] [id number] [place] [address] Feb, Acute right hip pain M25.551 and Hypertension I10 [facility] [id number] [place] [address] Feb, Diabetes E11.9 [facility] [id number] [place] [address] Jan, Hypertension I10 [facility] [id number] [place] [address] Jan, Hypertension I10 [facility] [id number] [place] [address] Dec, Dysuria R30.0 [facility] [id number] [place] [address] Dec, [facility] [id number] [place] [address] Dec, Fibromyalgia M79.7 [facility] [id number] [place] [address] Dec, Acute recurrent frontal sinusitis J01.11 and Hypertension I10 [facility] [id number] [place] [address] Dec, Hypertension I10 [facility] [id number] [place] [address] Dec, [facility] [id number] [place] [address] Dec, Hypertension I10 [facility] [id number] [place] [address] Nov, [facility] [id number] [place] [address] Oct, Fibromyalgia M79.7 ; Hypertension I10 ; Depression F32.9 ; Hypercholesterolemia E78.0 ; Anxiety associated with depression F41.8 and Diabetes E11.9 [facility] [id number] [place] [address] September, Essential hypertension I10 ; Diabetes E11.9 ; Anxiety associated with depression F41.8 and Hypercholesterolemia E78.0 [facility] [id number] [place] [address] Aug, [facility] [id number] [place] [address] Aug, Diabetes E11.9 [facility] [id number] [place] [address] Aug, [facility] [id number] [place] [address] Jul, Acute non-recurrent maxillary sinusitis J01.00 [facility] [id number] [place] [address] Jul, Anxiety associated with depression F41.8 [facility] [id number] [place] [address] Jun, Anxiety associated with depression F41.8 and Hypercholesterolemia E78.0 [facility] [id number] [place] [address] May, Diabetes E11.9 ; Insomnia G47.00 ; Fibromyalgia M79.7 ; Hypercholesterolemia E78.0 ; Anxiety associated with depression F41.8 and Essential hypertension I10 [facility] [id number] [address] May, [facility] [id number] [place] [address] May, [facility] [id number] [place] [address] Mar, [facility] [id number] [place] [address] Mar, Hypertension I10 [facility] [id number] [place] [address] Feb, [facility] [address] [address] Feb, [facility] [address] [address] Feb, Anxiety associated with depression F41.8 ; Chest tightness R07.89 and Elevated blood pressure I10 [place] [address] [address] Feb, Encounter for immunization Z23 ; Bronchitis J40 ; Diabetes E11.9 ; Hypertension I10 ; Insomnia G47.00 ; Hypercholesterolemia E78.0 ; Depression F32.9 and Fibromyalgia M79.7 [place] [address] [address] Jan, Bronchitis J40 and Depression F32.9 [facility] [address] [address] Jan, Bronchitis J40 [facility] [address] [address] Dec, [facility] [address] [address] Dec, [place] [address] [address] Nov, Acute non-recurrent frontal sinusitis J01.10 and Hypertension I10 [place] [address] [address] Nov, [facility] [address] [address] Nov, Diabetes E11.9 ; Fibromyalgia M79.7 ; Hypertension I10 ; Insomnia G47.00 ; Depression F32.9 and Hypercholesterolemia E78.0 [facility] [address] [address] Oct, Hypercholesterolemia E78.0 [facility] [address] [address] September, [place] [id number] [place] [address] Aug, Diabetes E11.9 ; Fibromyalgia M79.7 ; Hypertension I10 ; Insomnia G47.00 ; Depression F32.9 ; Shoulder pain M25.519 ; Hypercholesterolemia E78.0 and Pain in right shoulder M25.511 [place] [id number] [place] [address] Jul, [place] [address] [address] Jun, Hypercholesterolemia E78.0 [place] [address] [address] Jun, [place] [address] [address] May, [place] [address] [address] May, Well woman exam Z01.419 [place] [address] [address] May, Hypertension I10 ; Diabetes E11.9 ; Fibromyalgia M79.7 ; Insomnia G47.00 ; Depression F32.9 and Hypercholesterolemia E78.0 [place] [id number] [place] [address] Apr, [address] [address] Apr, Fibromyalgia M79.7 ; Hypertension I10 ; Bronchitis J40 ; Insomnia G47.00 ; Depression F32.9 ; Shoulder pain M25.519 and Hypercholesterolemia E78.0 [place] [id number] [place] [address] Mar, Hyperlipemia E78.5 [place] [id number] [place] [address] Mar, Diabetes E11.9 ; Hypertension I10 ; Insomnia G47.00 ; Depression F32.9 and Shoulder pain M25.519 [facility] [id number] [place] [address] Mar, [facility] [address] [address] Feb, [facility] [address] [address] Feb, Encounter for immunization Z23 ; Diabetes E11.9 ; Fibromyalgia M79.7 ; Hypertension I10 ; Bronchitis J40 and Insomnia G47.00 [facility] [address] [address] Feb, Bronchitis J40 [facility] [address] [address] Jan, Bronchitis 490 [facility] [address] [address] Aug, [facility] [address] [address] Aug, [facility] [address] [address] Jul, [facility] [id number] [place] [address] Jul, [facility] [address] [address] Jul, [facility] [id number] [place] [address] Jul, [facility] [id number] [place] [address] Jun, [facility] [id number] [place] [address] Jun, [facility] [address] [address] May, [facility] [address] [id number] [place] [address] May, [facility] [place] [facility] [address] [id number] [place] [address] Apr, [facility] [place] [facility] [address] [id number] [place] [address] Apr, [facility] [place] [facility] [address] [id number] [place] [address] Apr, [facility] [place] [facility] [address] [id number] [place] [address] Apr, [facility] [place] [facility] [address] [id number] [place] [address] Apr, [facility] [place] [facility] [address] [id number] [place] [address] Apr, [facility] [place] [facility] [address] [id number] [place] [address] Feb, [facility] [place] [facility] [address] [id number] [place] [address] Feb, [facility] [place] [facility] [address] [id number] [place] [address] Jan, [facility] [place] [facility] [address] [id number] [place] [address] Jan, [facility] [place] [facility] [address] [id number] [place] [address] Dec, [facility] [place] [facility] [address] [id number] [place] [address] Dec, [facility] [place] [facility] [address] [id number] [place] [address] September, [facility] [place] [facility] [address] [id number] [place] [address] September, [facility] [place] [facility] [address] [id number] [place] [address] September, [facility] [place] [facility] [address] [id number] [place] [address] September, [facility] [place] [facility] [address] [id number] [place] [address] September, [facility] [place] [facility] [address] [id number] [place] [address] September, [facility] [place] [facility] [address] [id number] [place] [address] Aug, [facility] [place] [facility] [address] [id number] [place] [address] Aug, [facility] [place] [facility] [address] [id number] [place] [address] Jul, [facility] [place] [facility] [address] [id number] [place] [address] Jul, [facility] [place] [facility] [address] [id number] [place] [address] May, [facility] [place] [facility] [address] [id number] [place] [address] May, [facility] [place] [facility] [address] [id number] [place] [address] May, [facility] [place] [facility] [address] [id number] [place] [address] May, [facility] [place] [facility] [address] [id number] [place] [address] May, [facility] [place] [facility] [address] [id number] [place] [address] May, [facility] [place] [facility] [address] [id number] [place] [address] Apr, [facility] [place] [facility] [address] [id number] [place] [address] Apr, [facility] [place] [facility] [address] [id number] [place] [address] 19 Apr, 2012 [facility] [place] [facility] [address] [id number] [place] [address] 19 Apr, 2013 [facility] [place] [facility] [address] [id number] [place] [address] 16 Apr, 2013 [facility] [place] [facility] [address] [id number] [place] [address] Apr, [facility] [place] [facility] [address] [id number] [place] [address] Apr, [facility] [place] [facility] [address] [id number] [place] [address] Apr, [facility] [place] [facility] [address] [id number] [place] [address] Feb, [facility] [place] [facility] [address] [id number] [place] [address] Feb, [facility] [place] [facility] [address] [id number] [place] [address] Feb, [facility] [place] [facility] [address] [id number] [place] [address] 15 Feb, 2013 [facility] [place] [facility] [address] [id number] [place] [address] Feb, [facility] [place] [facility] [address] [id number] [place] [address] 10 Feb, 2013 [facility] [place] [facility] [address] [id number] [place] [address] Feb, [facility] [place] [facility] [address] [id number] [place] [address] Feb, [facility] [place] [facility] [address] [id number] [place] [address] Nov, [facility] [place] [facility] [address] [id number] [place] [address] Nov, [facility] [address] [id number] [place] [address] Oct, [facility] [place] [facility] [address] [id number] [place] [address] Oct, [facility] [address] [id number] [place] [address] Oct, [facility] [place] [facility] [address] [id number] [place] [address] September, [facility] [address] [id number] [place] [address] September, [facility] [address] [id number] [place] [address] September, [facility] [address] [id number] [place] [address] September, [facility] [address] [id number] [place] [address] September, [facility] [address] [id number] [place] [address] September, [facility] [address] [id number] [place] [address] September, [facility] [place] [facility] [address] [id number] [place] [address] September, [facility] [place] [facility] [address] [id number] [place] [address] September, [facility] [place] [facility] [address] [id number] [place] [address] September, [facility] [place] [facility] [address] [id number] [place] [address] Aug, [facility] [place] [facility] [address] [id number] [place] [address] Jul, [facility] [place] [facility] [address] [id number] [place] [address] Jun, [facility] [place] [facility] [address] [id number] [place] [address] Jun, [facility] [place] [facility] [address] [id number] [place] [address] May, [facility] [place] [facility] [address] [id number] [place] [address] May, [facility] [place] [facility] [address] [id number] [place] [address] Mar, [facility] [place] [facility] [address] [id number] [place] [address] Mar, [facility] [place] [facility] [address] [id number] [place] [address] Mar, [facility] [place] [facility] [address] [facility] [id number] [place] [address] Mar, [facility] [place] [facility] [address] [id number] [place] [address] Feb, [facility] [place] [facility] [address] [id number] [place] [address] Feb, [facility] [place] [facility] [address] [facility] [id number] [place] [address] Feb, [facility] [place] [facility] [address] [facility] [id number] [place] [address] Feb, [facility] [place] [facility] [address] [facility] [id number] [place] [address] Feb, [facility] [place] [facility] [address] [id number] [place] [address] Feb, [facility] [place] [facility] [address] [facility] [id number] [place] [address] Feb, [facility] [place] [facility] [address] [id number] [place] [address] Jan, [facility] [place] [facility] [address] [id number] [place] [address] 14 Jan, 2012 [facility] [address] [id number] [place] [address] 10 Jan, 2012 [facility] [address] [id number] [place] [address] 30 Dec, 2011 [facility] [place] [facility] [address] [id number] [place] [address] Dec, [facility] [address] [id number] [place] [address] Dec, [facility] [address] [id number] [place] [address] Nov, [facility] [address] [facility] [id number] [place] [address] Oct, [facility] [address] [id number] [place] [address] Oct, [facility] [address] [id number] [place] [address] Oct, [facility] [id number] [address] Oct, [facility] [address] [id number] [address] Oct, [facility] [address] [id number] [place] [address] Aug, [facility] [address] [facility] [id number] [place] [address] Aug, [facility] [address] [facility] [id number] [place] [address] Jul, [facility] [address] [facility] [id number] [place] [address] Jun, [facility] [place] [address] [facility] [id number] [id number] Jun, [facility] [address] [id number] [address] May, [facility] [address] [address] May, [facility] [address] [address] May, [facility] [id number] [address] May, [facility] [id number] [place] [address] May, [facility] [id number] [place] [address] Apr, [facility] [id number] [place] [address] Apr, [facility] [id number] [place] [address] Apr, [facility] [id number] [address] Apr, [facility] [id number] [address] Apr, [facility] [id number] [place] [address] Apr, [facility] [id number] [address] Apr, [facility] [id number] [address] Apr, IMMUNIZATIONS No Known Immunizations SOCIAL HISTORY Never Assessed REASON FOR VISIT Refill request PLAN OF CARE VITAL SIGNS MEDICATIONS Medication Instructions Dosage Frequency Start Date End Date Duration Status Metformin HCl 850 MG Orally Twice a day 1 tablet 12h Feb, Active RESULTS No Results PROCEDURES No Known [...]
--- OUTSIDE RECORDS SUMMARY | 2018-09-19 20:43 | XMS REPORT ---
Author ANNA MARIE Rogers [facility] eClinicalWorks Address Unknown Phone Unavailable Care Team Providers Care Acid Extractor Name Role Phone ANNA MARIE LOMELI CP Unavailable Allergies, Adverse Reactions, Alerts Substance Reaction Event Type Tetanus Info Not Available Drug Allergy Sulfacetamide Sodium Info Not Available Drug Allergy Penicillin G Potassium Info Not Available Drug Allergy Problems Problem Type Condition Code Onset Dates Condition Status Assessment Shoulder pain M25.519 Active Assessment Insomnia G47.00 Active Assessment Depression F32.9 Active Assessment Hypertension I10 Active Assessment Diabetes E11.9 Active Problem Need for prophylactic vaccination and [...] Instructions Start Date End Date Status Dosage Ibuprofen FOR[facility] NAMED [facility] [address]-90 800 MG Orally Three times a day Mar 29, 2015 Apr 28, 2015 1 tablet Cozaar FORMERLY NAMED [facility] [address]-93 100 MG 1 TAB orally once a day May 17, 2014 1 tablet by Oral route 1 time per day Celexa FORMER[facility] NAMED [facility] [address]-83 20 MG Orally Once a day Mar 29, 2015 1 tablet Toprol XL FORMER[facility] NAMED [facility] [address]-94 200 MG May 17, 2014 1 tablet Clonidine HCl FORMER[facility] NAMED [facility] [address]-34 0.1 MG Orally 2 times a day Mar 29, 2015 1 tablet Trazodone HCl FORMER[facility] NAMED [facility] [address]-26 50 MG Orally at hs Feb 22, 2015 1 tablet at bedtime as needed Procedures Procedure Coding System Code Date LIPID PANEL CPT-4 14720 Mar 29, 2015 COMPLETE CBC W/AUTO DIFF WBC CPT-4 91630 Mar 29, 2015 COMPREHEN METABOLIC PANEL CPT-4 77060 Mar 29, 2015 Office Visit, Est Pt., Level 4 CPT-4 17606 Mar 29, 2015 ASSAY THYROID STIM HORMONE CPT-4 66530 Mar 29, 2015 VENIPUNCT, ROUTINE* CPT-4 27547 Mar 29, 2015 Vital Signs Date/Time: Mar 29, 2015 Cardiac Monitoring Heart Rate 76 bpm Temperature 98.2 F Height 61 in Blood Pressure Diastolic 102 mmHg Blood Pressure Systolic 178 mmHg Results Name Result Date Reference Range Unit Abnormality Flag ROUTINE VENIPUNCTURE Summary Purpose eClinicalWorks Submission
--- OUTSIDE RECORDS SUMMARY | 2018-09-19 20:43 | XMS REPORT ---
Author Author LALITA ARZATE [facility] Address [address] [place] [address] Care Team Providers Care Workgroup Leader Name Role Phone LALITA ARZATE Unavailable PROBLEMS Type Condition ICD9-CM Code ERT80-RF Code Onset Dates Condition Status SNOMED Code Problem Anxiety associated with depression F41.8 Active 045291987 Problem Long-term use of high-risk medication Z79.899 Active 759104448 Problem Hyperlipidemia LDL goal <70 E78.5 Active 87511982 Problem Insomnia G47.00 Active 695017840 Problem Hypertension I10 Active 16338431 Problem Fibromyalgia M79.7 Active 06157241 Problem Chronic fatigue R53.82 Active 50579847 Problem Overweight (BMI 25.0-29.9) E66.3 Active 900485599 Problem Type 2 diabetes mellitus without complication, without long-term current use of insulin E11.9 Active 675320142 Problem Arthritis M19.90 Active 7150100 Problem Chronic maxillary sinusitis J32.0 Active 43848752 Problem Adjustment disorder with anxiety F43.22 Active 70227557 ALLERGIES Substance Reaction Event Type Date Status Tetanus Unknown Drug Allergy May, Active Sulfamethoxazole-Trimethoprim Unknown Drug Allergy May, Active Penicillin V Potassium Unknown Drug Allergy May, Active Celebrex HEADACHE Drug Allergy May, Active Azithromycin Unknown Drug Allergy May, Active ENCOUNTERS Encounter Location Date Diagnosis [facility] [address] [facility] [id number] [address] Oct, Hyperlipidemia LDL goal <70 E78.5 [facility] [address] [facility] [id number] [place] [address] Oct, Type 2 diabetes mellitus without complication, without long-term current use of insulin E11.9 ; Hyperlipidemia LDL goal <70 E78.5 ; Hypertension I10 ; Fibromyalgia M79.7 and Chronic fatigue R53.82 [place] [id number] [place] [address] 15 Oct, 2017 Type 2 diabetes mellitus without complication, without long-term current use of insulin E11.9 ; Hyperlipidemia LDL goal <70 E78.5 ; Hypertension I10 ; Fibromyalgia M79.7 ; Chronic fatigue R53.82 and Overweight (BMI 25.0-29.9) E66.[address] [address] Aug, Hypertension I10 and Dyshidrotic eczema L30.[address] [address] 14 Jun, 2017 Hyperlipidemia LDL goal <[address] [address] Jun, Arthritis M19.[address] [address] May, Hypertension I10 ; Anxiety associated with depression F41.8 ; Hyperlipidemia LDL goal <70 E78.5 and Chronic maxillary sinusitis J32.[address] [address] May, Acute non-recurrent maxillary sinusitis J01.00 and Sore throat J02.[address] [address] May, Dysthymia F34.[address] [address] Apr, Hypertension I10 [address] [address] Apr, Cough R05 ; Sore throat J02.9 and Bronchitis J40 [address] [address] Mar, Anxiety associated with depression F41.8 ; Adjustment disorder with anxiety F43.22 and Depression F32.9 [facility] [address] [place] [id number] [place] [address] Mar, [facility] [address] [address] Mar, Type 2 diabetes mellitus without complication, without long-term current use of insulin E11.9 ; Hypertension I10 ; Hyperlipidemia LDL goal <70 E78.5 ; Arthritis M19.90 ; Long-term use of high-risk medication Z79.899 and Dysthymia F34.1 [place] [address] [address] Mar, [place] [address] [address] Mar, [place] [address] [address] Feb, [place] [address] [address] Feb, Acute right hip pain M25.551 and Hypertension I10 [place] [address] [address] Feb, Diabetes E11.9 [place] [address] [place] [id number] [place] [address] Jan, Hypertension I10 [place] [address] [address] Jan, Hypertension I10 [facility] [address] [place] [id number] [place] [address] Dec, Dysuria R30.0 [place] [address] [address] Dec, [place] [address] [address] Dec, Fibromyalgia M79.7 [place] [address] [place] [address] 14 Dec, 2016 Acute recurrent frontal sinusitis J01.11 and Hypertension I10 [facility] [address] [place] [id number] [place] [address] Dec, Hypertension I10 [facility] [address] [id number] [place] [address] Dec, [facility] [address] [address] [id number] [place] [address] Dec, Hypertension I10 [facility] [address] [id number] [place] [address] Nov, [place] [address] [place] [id number] [place] [address] Oct, Fibromyalgia M79.7 ; Hypertension I10 ; Depression F32.9 ; Hypercholesterolemia E78.0 ; Anxiety associated with depression F41.8 and Diabetes E11.9 [place] [address] [place] [id number] [place] [address] September, Essential hypertension I10 ; Diabetes E11.9 ; Anxiety associated with depression F41.8 and Hypercholesterolemia E78.0 [place] [address] [place] [id number] [place] [address] Aug, [facility] [address] [id number] [place] [address] Aug, Diabetes E11.9 [facility] [address] [place] [id number] [place] [address] Aug, [facility] [address] [place] [id number] [place] [address] Jul, Acute non-recurrent maxillary sinusitis J01.00 [facility] [address] [place] [id number] [place] [address] 06 Jul, 2016 Anxiety associated with depression F41.8 [place] [address] [place] [id number] [place] [address] Jun, Anxiety associated with depression F41.8 and Hypercholesterolemia E78.0 [facility] [address] [address] May, Diabetes E11.9 ; Insomnia G47.00 ; Fibromyalgia M79.7 ; Hypercholesterolemia E78.0 ; Anxiety associated with depression F41.8 and Essential hypertension I10 [place] [address] [address] May, [facility] [address] [address] May, [facility] [address] [address] Mar, [place] [address] [address] Mar, Hypertension I10 [facility] [address] [address] Feb, [facility] [address] [address] Feb, [facility] [address] [address] Feb, Anxiety associated with depression F41.8 ; Chest tightness R07.89 and Elevated blood pressure I10 [place] [address] [address] Feb, Encounter for immunization Z23 ; Bronchitis J40 ; Diabetes E11.9 ; Hypertension I10 ; Insomnia G47.00 ; Hypercholesterolemia E78.0 ; Depression F32.9 and Fibromyalgia M79.7 [facility] [address] [address] Jan, Bronchitis J40 and Depression F32.9 [facility] [address] [id number] [place] [address] Jan, Bronchitis J40 [facility] [address] [place] [address] Dec, [facility] [address] [place] [id number] [place] [address] Dec, [facility] [address] [address] [id number] [place] [address] Nov, Acute non-recurrent frontal sinusitis J01.10 and Hypertension I10 [facility] [address] [address] Nov, [facility] [address] [place] [id number] [place] [address] Nov, Diabetes E11.9 ; Fibromyalgia M79.7 ; Hypertension I10 ; Insomnia G47.00 ; Depression F32.9 and Hypercholesterolemia E78.0 [facility] [address] [id number] [place] [address] Oct, Hypercholesterolemia E78.0 [facility] [address] [place] [id number] [place] [address] September, [facility] [address] [place] [id number] [place] [address] Aug, Diabetes E11.9 ; Fibromyalgia M79.7 ; Hypertension I10 ; Insomnia G47.00 ; Depression F32.9 ; Shoulder pain M25.519 ; Hypercholesterolemia E78.0 and Pain in right shoulder M25.511 [facility] [address] [place] [id number] [place] [address] Jul, [facility] [address] [id number] [place] [address] Jun, Hypercholesterolemia E78.0 [facility] [address] [id number] [place] [address] Jun, [facility] [address] [id number] [place] [address] May, [facility] [address] [id number] [place] [address] May, Well woman exam Z01.[address] [address] May, Hypertension I10 ; Diabetes E11.9 ; Fibromyalgia M79.7 ; Insomnia G47.00 ; Depression F32.9 and Hypercholesterolemia E78.[address] [address] Apr, [place] [address] [address] Apr, Fibromyalgia M79.7 ; Hypertension I10 ; Bronchitis J40 ; Insomnia G47.00 ; Depression F32.9 ; Shoulder pain M25.519 and Hypercholesterolemia E78.[address] [address] Mar, Hyperlipemia E78.[address] [address] Mar, Diabetes E11.9 ; Hypertension I10 ; Insomnia G47.00 ; Depression F32.9 and Shoulder pain M25.[address] [address] Mar, [address] [address] Feb, [address] [address] Feb, Diabetes E11.9 ; Encounter for immunization Z23 ; Fibromyalgia M79.7 ; Hypertension I10 ; Bronchitis J40 and Insomnia G47.[address] [address] Feb, Bronchitis J40 [address] [address] Jan, Bronchitis [address] [address] 14 Aug, 2014 [facility] [place] [facility] [address] [id number] [place] [address] 13 Aug, 2014 [facility] [place] [facility] [address] [id number] [place] [address] Jul, [facility] [place] [facility] [address] [id number] [place] [address] Jul, [facility] [place] [facility] [address] [id number] [place] [address] Jul, [facility] [place] [facility] [address] [id number] [place] [address] Jul, [facility] [place] [facility] [address] [id number] [place] [address] Jun, [facility] [place] [facility] [address] [id number] [place] [address] Jun, [facility] [place] [facility] [address] [id number] [place] [address] May, [facility] [place] [facility] [address] [id number] [place] [address] May, [facility] [place] [facility] [address] [id number] [place] [address] Apr, [facility] [place] [facility] [address] [id number] [place] [address] Apr, [facility] [place] [facility] [address] [id number] [place] [address] Apr, [facility] [place] [facility] [address] [id number] [place] [address] Apr, [facility] [place] [facility] [address] [id number] [place] [address] Apr, [facility] [place] [facility] [address] [id number] [place] [address] Apr, [facility] [place] [facility] [address] [id number] [place] [address] Feb, [facility] [place] [facility] [address] [id number] [place] [address] Feb, [facility] [place] [facility] [address] [id number] [place] [address] Jan, [facility] [place] [facility] [address] [id number] [place] [address] Jan, [facility] [place] [facility] [address] [id number] [place] [address] Dec, [facility] [place] [facility] [address] [id number] [place] [address] Dec, [facility] [place] [facility] [address] [id number] [place] [address] September, [facility] [place] [facility] [address] [id number] [place] [address] September, [facility] [place] [facility] [address] [id number] [place] [address] September, [facility] [place] [facility] [address] [id number] [place] [address] September, [facility] [place] [facility] [address] [id number] [place] [address] September, [facility] [place] [facility] [address] [id number] [place] [address] September, [facility] [place] [facility] [address] [id number] [place] [address] Aug, [facility] [place] [facility] [address] [id number] [place] [address] Aug, [facility] [place] [facility] [address] [id number] [place] [address] Jul, [facility] [place] [facility] [address] [id number] [place] [address] Jul, [facility] [place] [facility] [address] [id number] [place] [address] May, [facility] [address] [id number] [place] [address] May, [facility] [address] [id number] [place] [address] May, [facility] [address] [id number] [place] [address] May, [facility] [address] [id number] [place] [address] May, [facility] [address] [id number] [place] [address] May, [facility] [address] [id number] [place] [address] Apr, [facility] [address] [id number] [place] [address] Apr, [facility] [address] [id number] [place] [address] Apr, [facility] [address] [id number] [place] [address] Apr, [facility] [address] [id number] [place] [address] 16 Apr, 2013 [facility] [address] [id number] [place] [address] Apr, [facility] [place] [facility] [address] [id number] [place] [address] Apr, [facility] [place] [facility] [address] [id number] [place] [address] Apr, [facility] [place] [facility] [address] [id number] [place] [address] Feb, [facility] [place] [facility] [address] [id number] [place] [address] Feb, [facility] [place] [facility] [address] [id number] [place] [address] Feb, [facility] [place] [facility] [address] [id number] [place] [address] Feb, [facility] [place] [facility] [address] [id number] [place] [address] Feb, [facility] [place] [facility] [address] [id number] [place] [address] Feb, [facility] [place] [facility] [address] [id number] [place] [address] Feb, [facility] [place] [facility] [address] [id number] [place] [address] Feb, [facility] [place] [facility] [address] [id number] [place] [address] Nov, [facility] [place] [facility] [address] [id number] [place] [address] Nov, [facility] [place] [facility] [address] [id number] [place] [address] Oct, [facility] [place] [facility] [address] [id number] [place] [address] Oct, [facility] [place] [facility] [address] [id number] [place] [address] Oct, [facility] [place] [facility] [address] [id number] [place] [address] September, [facility] [place] [facility] [address] [id number] [place] [address] September, [facility] [place] [facility] [address] [id number] [place] [address] September, [facility] [place] [facility] [address] [id number] [place] [address] September, [facility] [place] [facility] [address] [id number] [place] [address] September, [facility] [address] [id number] [place] [address] September, [facility] [address] [id number] [place] [address] September, [facility] [address] [id number] [place] [address] September, [facility] [address] [id number] [place] [address] September, [facility] [address] [id number] [place] [address] September, [facility] [address] [id number] [place] [address] Aug, [facility] [address] [id number] [place] [address] Jul, [facility] [address] [id number] [place] [address] Jun, [facility] [address] [id number] [place] [address] Jun, [facility] [address] [id number] [place] [address] May, [facility] [address] [id number] [place] [address] May, [facility] [address] [id number] [place] [address] Mar, [facility] [address] [id number] [place] [address] Mar, [facility] [address] [id number] [place] [address] Mar, [facility] [address] [id number] [place] [address] Mar, [facility] [place] [facility] [address] [id number] [place] [address] Feb, [facility] [place] [facility] [address] [id number] [place] [address] Feb, [facility] [place] [facility] [address] [id number] [place] [address] Feb, [facility] [place] [facility] [address] [id number] [place] [address] Feb, [facility] [place] [facility] [address] [id number] [place] [address] Feb, [facility] [place] [facility] [address] [id number] [place] [address] Feb, [facility] [place] [facility] [address] [facility] [id number] [place] [address] Feb, [facility] [place] [facility] [address] [id number] [place] [address] 18 Jan, 2012 [facility] [place] [facility] [address] [id number] [place] [address] 14 Jan, 2012 [facility] [place] [facility] [address] [id number] [place] [address] Jan, [facility] [place] [facility] [address] [id number] [place] [address] Dec, [facility] [place] [facility] [address] [id number] [place] [address] Dec, [facility] [place] [facility] [address] [id number] [place] [address] Dec, [facility] [place] [facility] [address] [id number] [place] [address] Nov, [facility] [place] [facility] [address] [id number] [place] [address] Oct, [facility] [place] [facility] [address] [id number] [place] [address] Oct, [facility] [address] [id number] [place] [address] Oct, [facility] [place] [facility] [address] [id number] [place] [address] Oct, [facility] [address] [id number] [place] [address] Oct, [facility] [place] [facility] [address] [id number] [place] [address] Aug, [facility] [address] [id number] [place] [address] Aug, [facility] [place] [facility] [address] [id number] [place] [address] Jul, [facility] [address] [id number] [place] [address] Jun, [facility] [address] [id number] Jun, [facility] [id number] [place] [address] May, [facility] [place] [facility] [address] [id number] [place] [address] May, [facility] [address] [id number] [place] [address] May, [facility] [place] [facility] [address] [id number] [place] [address] May, [facility] [place] [facility] [address] [id number] [place] [address] May, [facility] [place] [facility] [address] [id number] [place] [address] Apr, [facility] [place] [facility] [address] [id number] [place] [address] Apr, [facility] [place] [facility] [address] [facility] [id number] [place] [address] Apr, [facility] [address] [facility] [id number] [place] [address] Apr, [facility] [address] [facility] [id number] [place] [address] Apr, [facility] [address] [facility] [id number] [place] [address] Apr, [facility] [address] [facility] [id number] [place] [address] Apr, [facility] [address] [facility] [id number] [place] [address] Apr, IMMUNIZATIONS No Known Immunizations SOCIAL HISTORY Never Assessed REASON FOR VISIT Blood Pressure follow up-Vidhi, States she is getting angry at times and w onders if it isnt related to the fluoxetine PLAN OF CARE Activity Details Follow Up 2 Months with bp check here 2-3 weeks Reason:BP VITAL SIGNS Height 61 in 2017-06-05 Weight 141.3 lbs 2017-06-05 Temperature 97.7 degrees Fahrenheit 2017-06-05 Heart Rate 78 bpm 2017-06-05 Respiratory Rate 20 2017-06-05 BMI 26.70 kg/m2 2017-06-05 Blood pressure systolic 142 mmHg 2017-06-05 Blood pressure diastolic 94 mmHg 2017-06-05 MEDICATIONS Medication Instructions Dosage Frequency Start Date End Date Duration Status Pravastatin Sodium 20 mg Orally Once a day 1 tablet 24h Mar, 180 days Active MetFORMIN HCl ER 750 MG Orally Once a day 1 tablet with evening meal 24h Mar, 180 days Active PredniSONE 20 mg Orally Once a day 2 tablet daily x 4 days then 1 daily x 4 days 24h May, Jun, 8 days Active Atenolol 100 mg Orally twice a day 1 tablet 12h Dec, 30 days Active Lopid 600 MG Orally Twice a day 1 tablet 12h Mar, 90 days Active Losartan Potassium 100 mg Orally Once a day 1 tablet 24h 30 days Active Cephalexin 500 mg Orally every 12 hrs 1 capsule 12h May, Jun, 14 days Active Clonidine HCl 0.2 MG Orally twice a day 1 tablet 12h 21 Mar, 2017 30 day(s) Active RESULTS No Results PROCEDURES Procedure Date Ordered Result Body Site LIPID PANEL Jun 05, 2017 COMPREHEN METABOLIC PANEL Jun 05, 2017 VENIPUNCT, ROUTINE* Jun 05, 2017 INSTRUCTIONS MEDICATIONS ADMINISTERED No Known Medications MEDICAL (GENERAL) HISTORY Type Description Date Medical History Diabetes type II Medical History hypertension Medical History fibromyalgia Medical History hyperlipidemia Medical History ostoarthrtis Surgical History hysterectomy has right ovary left 1995 Surgical History shoulder surgery(right) 09/2014 Hospitalization History surgeries Hospitalization History childbirth x 2
--- OUTSIDE RECORDS SUMMARY | 2018-09-19 20:44 | XMS REPORT ---
Author Author ANETA MIMS Organization [employer] Address Unknown Phone Unavailable Care Team Providers Care Food Services Coordinator Name Role Phone ANETA MIMS CP Unavailable Allergies, Adverse Reactions, Alerts Substance Reaction Event Type Tetanus Info Not Available Drug Allergy Sulfacetamide Sodium Info Not Available Drug Allergy Penicillin G Potassium Info Not Available Drug Allergy Problems Problem Type Condition Code Onset Dates Condition Status Problem Other atopic dermatitis and related conditions 691.8 Active Problem Encounter for long-term (current) use of other medications V58.69 Active Problem Acute bronchitis 466.0 Active Problem Acute sinusitis, unspecified 461.9 Active Problem Need for prophylactic vaccination and inoculation, Influenza V04.81 Active Problem 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 Assessment Bronchitis 490 Active Problem Cramp of limb 729.82 Active Problem Lumbago 724.2 Active Problem Insomnia, unspecified 780.52 Active Problem Acute pharyngitis 462 Active Problem Pain in joint, pelvic region and thigh 719.45 Active Problem Unspecified infective otitis externa 380.10 Active Problem Unspecified myalgia and myositis 729.1 Active Problem Pain in joint, shoulder region 719.41 Active Problem Other malaise and fatigue 780.79 Active Problem Unspecified backache 724.5 Active Problem Pure hyperglyceridemia 272.1 Active Problem Fall from other slipping, tripping, or stumbling E885.9 Active Problem Unspecified thrombocytopenia 287.[address] of occurrence, home E849.0 Active Problem Family history of diabetes mellitus V18.0 Active Medications Medication Code System Code Instructions Start Date End Date Status Dosage Levaquin [facility] [address]-22 500 MG Orally Once a day Jan 31, 2015 Feb 10, 2015 1 tablet Effexor XR [facility] [address]-40 150 mg May 17, 2014 1 capsule by Oral route 1 time per day Norvasc [facility] [address]-02 10 mg 1 TAB orally once a day May 17, 2014 1 tablet by Oral route 1 time per day Toprol XL [facility] [address]-54 200 mg May 17, 2014 take 2 tablet by Oral route 1 time per day QHS Fish Oil [facility] [address]-93 October 11, 2011 not defined Promethazine-Codeine [facility] [address]-99 6.25-10 MG/5ML Orally every 6 hrs prn cough Jan 31, 2015 5-10 ml as needed metformin ND 0 850 mg May 17, 2014 take 1 tablet 2 times per day with morning and evening meals Ventolin HFA [facility] [address]-33 108 (90 Base) MCG/ACT Inhalation 4 times a day as needed for cough Jan 31, 2015 2 puffs as needed Procedures Procedure Coding System Code Date Office Visit, Est Pt., Level 3 CPT-4 85560 Jan 31, 2015 Vital Signs Date/Time: Jan 31, 2015 Temperature 98.0 F Weight 138.9 lbs Height 61 in BMI 26.24 Index Blood Pressure Diastolic 88 mmHg Blood Pressure Systolic 166 mmHg Cardiac Monitoring Heart Rate 72 bpm Results No Known Results Summary Purpose [employer] Submission
--- OUTSIDE RECORDS SUMMARY | 2018-09-19 20:44 | XMS REPORT ---
Author Author ANNA MARIE LOMELI Organization [facility] Address [address] [place] [address] Care Team Providers Care Machine Operator Transplanter Name Role Phone ANNA MARIE LOMELI Unavailable PROBLEMS Type Condition ICD9-CM Code MKE62-ID Code Onset Dates Condition Status SNOMED Code Problem Diabetes E11.9 Active 12332850 Problem Pure hypercholesterolemia E78.00 Active 883166602 Problem Anxiety associated with depression F41.8 Active 081688825 Problem Depression F32.9 Active 449251669 Problem Fibromyalgia M79.7 Active 92271059 Problem Hypertension I10 Active 30639707 Problem Insomnia G47.00 Active 270523279 Problem Bronchitis J40 Active 91432517 ALLERGIES No Known Allergies SOCIAL HISTORY No smoking Hx information available PLAN OF CARE VITAL SIGNS MEDICATIONS Medication Instructions Dosage Frequency Start Date End Date Duration Status Cymbalta 60 mg Orally Once a day 1 capsule 24h Feb, 30 days Active Toprol XL 100 MG Orally Once a day 2 tablets 24h May, Active RESULTS No Results PROCEDURES No Known procedures IMMUNIZATIONS No Known Immunizations
--- OUTSIDE RECORDS SUMMARY | 2018-09-19 20:44 | XMS REPORT ---
Author Author LALITA ARZATE Organization [facility] Address [address] [place] [address] Care Team Providers Care Stock House Worker Name Role Phone LALITA ARZATE Unavailable PROBLEMS Type Condition ICD9-CM Code JUC60-UL Code Onset Dates Condition Status SNOMED Code Problem Hypertension I10 Active 98494888 Problem Anxiety associated with depression F41.8 Active 921993363 Problem Fibromyalgia M79.7 Active 34274053 Problem Insomnia G47.00 Active 661372389 Problem Chronic maxillary sinusitis J32.0 Active 69225161 Problem Adjustment disorder with anxiety F43.22 Active 89659890 Problem Long-term use of high-risk medication Z79.899 Active 315103099 Problem Hyperlipidemia LDL goal <70 E78.5 Active 08261042 Problem Type 2 diabetes mellitus without complication, without long-term current use of insulin E11.9 Active 457092708 Problem Arthritis M19.90 Active 6545742 ALLERGIES Substance Reaction Event Type Date Status Tetanus Unknown Drug Allergy Apr, Active Sulfamethoxazole-Trimethoprim Unknown Drug Allergy Apr, Active Penicillin V Potassium Unknown Drug Allergy Apr, Active Celebrex HEADACHE Drug Allergy Apr, Active Azithromycin Unknown Drug Allergy Apr, Active ENCOUNTERS Encounter Location Date Diagnosis [place] [id number] [address] Oct, [place] [address] [address] Aug, Hypertension I10 and Dyshidrotic eczema L30.1 [place] [id number] [address] 14 Jun, 2017 Hyperlipidemia LDL goal <70 E78.5 [place] [id number] [address] Jun, Arthritis M19.90 [place] [address] [id number] [place] [address] May, Hypertension I10 ; Anxiety associated with depression F41.8 ; Hyperlipidemia LDL goal <70 E78.5 and Chronic maxillary sinusitis J32.[address] [address] May, Acute non-recurrent maxillary sinusitis J01.00 and Sore throat J02.[address] [address] May, Dysthymia F34.[address] [address] Apr, Hypertension I10 [address] [address] Apr, Cough R05 ; Sore throat J02.9 and Bronchitis J40 [address] [address] Mar, Anxiety associated with depression F41.8 ; Adjustment disorder with anxiety F43.22 and Depression F32.9 [place] [id number] [place] [address] Mar, [address] [address] Mar, Type 2 diabetes mellitus without complication, without long-term current use of insulin E11.9 ; Hypertension I10 ; Hyperlipidemia LDL goal <70 E78.5 ; Arthritis M19.90 ; Long-term use of high-risk medication Z79.899 and Dysthymia F34.[address] [address] Mar, [address] [address] Mar, [address] [place] [address] Feb, [facility] [id number] [place] [address] Feb, Acute right hip pain M25.551 and Hypertension I10 [facility] [id number] [place] [address] Feb, Diabetes E11.9 [facility] [address] [address] Jan, Hypertension I10 [facility] [id number] [place] [address] Jan, Hypertension I10 [facility] [address] [address] Dec, Dysuria R30.0 [facility] [address] [address] Dec, [facility] [address] [address] Dec, Fibromyalgia M79.7 [facility] [address] [address] Dec, Acute recurrent frontal sinusitis J01.11 and Hypertension I10 [facility] [id number] [place] [address] Dec, Hypertension I10 [facility] [id number] [place] [address] Dec, [facility] [id number] [place] [address] Dec, Hypertension I10 [facility] [id number] [place] [address] Nov, [facility] [id number] [place] [address] Oct, Fibromyalgia M79.7 ; Hypertension I10 ; Depression F32.9 ; Hypercholesterolemia E78.0 ; Anxiety associated with depression F41.8 and Diabetes E11.9 [facility] [address] [address] September, Essential hypertension I10 ; Diabetes E11.9 ; Anxiety associated with depression F41.8 and Hypercholesterolemia E78.0 [facility] [id number] [place] [address] Aug, [facility] [id number] [place] [address] Aug, Diabetes E11.9 [facility] [id number] [place] [address] Aug, [facility] [id number] [place] [address] Jul, Acute non-recurrent maxillary sinusitis J01.00 [facility] [id number] [place] [address] Jul, Anxiety associated with depression F41.8 [facility] [id number] [place] [address] Jun, Anxiety associated with depression F41.8 and Hypercholesterolemia E78.0 [facility] [address] [address] May, Diabetes E11.9 ; Insomnia G47.00 ; Fibromyalgia M79.7 ; Hypercholesterolemia E78.0 ; Anxiety associated with depression F41.8 and Essential hypertension I10 [facility] [address] [address] May, [facility] [id number] [place] [address] May, [facility] [address] [address] Mar, [facility] [id number] [place] [address] Mar, Hypertension I10 [facility] [id number] [place] [address] Feb, [facility] [address] [address] Feb, [facility] [id number] [place] [address] Feb, Anxiety associated with depression F41.8 ; Chest tightness R07.89 and Elevated blood pressure I10 [place] [address] [id number] [place] [address] Feb, Encounter for immunization Z23 ; Bronchitis J40 ; Diabetes E11.9 ; Hypertension I10 ; Insomnia G47.00 ; Hypercholesterolemia E78.0 ; Depression F32.9 and Fibromyalgia M79.7 [place] [address] [id number] [place] [address] Jan, Bronchitis J40 and Depression F32.9 [facility] [id number] [place] [address] Jan, Bronchitis J40 [facility] [address] [address] Dec, [facility] [id number] [place] [address] Dec, [place] [id number] [place] [address] Nov, Acute non-recurrent frontal sinusitis J01.10 and Hypertension I10 [place] [id number] [place] [address] Nov, [address] [address] Nov, Diabetes E11.9 ; Fibromyalgia M79.7 ; Hypertension I10 ; Insomnia G47.00 ; Depression F32.9 and Hypercholesterolemia E78.0 [place] [id number] [place] [address] Oct, Hypercholesterolemia E78.0 [facility] [id number] [place] [address] September, [facility] [id number] [place] [address] Aug, Diabetes E11.9 ; Fibromyalgia M79.7 ; Hypertension I10 ; Insomnia G47.00 ; Depression F32.9 ; Shoulder pain M25.519 ; Hypercholesterolemia E78.0 and Pain in right shoulder M25.511 [facility] [id number] [place] [address] Jul, [facility] [id number] [place] [address] Jun, Hypercholesterolemia E78.0 [facility] [id number] [place] [address] Jun, [facility] [id number] [place] [address] May, [facility] [id number] [place] [address] May, Well woman exam Z01.419 [place] [address] [id number] [place] [address] May, Hypertension I10 ; Diabetes E11.9 ; Fibromyalgia M79.7 ; Insomnia G47.00 ; Depression F32.9 and Hypercholesterolemia E78.0 [facility] [id number] [place] [address] Apr, [facility] [id number] [place] [address] Apr, Fibromyalgia M79.7 ; Hypertension I10 ; Bronchitis J40 ; Insomnia G47.00 ; Depression F32.9 ; Shoulder pain M25.519 and Hypercholesterolemia E78.0 [place] [address] [id number] [place] [address] Mar, Hyperlipemia E78.5 [facility] [id number] [place] [address] Mar, Diabetes E11.9 ; Hypertension I10 ; Insomnia G47.00 ; Depression F32.9 and Shoulder pain M25.519 [facility] [id number] [place] [address] Mar, [facility] [address] [address] Feb, [facility] [id number] [place] [address] Feb, Encounter for immunization Z23 ; Diabetes E11.9 ; Fibromyalgia M79.7 ; Hypertension I10 ; Bronchitis J40 and Insomnia G47.00 [facility] [address] [address] Feb, Bronchitis J40 [facility] [address] [address] Jan, Bronchitis 490 [facility] [address] [address] Aug, [facility] [id number] [place] [address] Aug, [facility] [id number] [place] [address] Jul, [facility] [id number] [place] [address] Jul, [facility] [id number] [place] [address] Jul, [facility] [address] [address] Jul, [facility] [id number] [place] [address] Jun, [facility] [address] [place] [address] [address] Jun, [facility] [address] [id number] [place] [address] May, [facility] [place] [facility] [address] [id number] [place] [address] May, [facility] [address] [id number] [place] [address] Apr, [facility] [place] [facility] [address] [id number] [place] [address] Apr, [facility] [address] [id number] [place] [address] Apr, [facility] [place] [facility] [address] [id number] [place] [address] Apr, [facility] [address] [id number] [place] [address] Apr, [facility] [address] [id number] [place] [address] Apr, [facility] [place] [facility] [address] [id number] [place] [address] Feb, [facility] [address] [id number] [place] [address] Feb, [facility] [place] [facility] [address] [id number] [place] [address] Jan, [facility] [place] [facility] [address] [id number] [place] [address] Jan, [facility] [place] [facility] [address] [id number] [place] [address] Dec, [facility] [place] [facility] [address] [id number] [place] [address] Dec, [facility] [place] [facility] [address] [id number] [place] [address] September, [facility] [address] [id number] [place] [address] September, [facility] [place] [facility] [address] [id number] [place] [address] September, [facility] [place] [facility] [address] [id number] [place] [address] September, [facility] [place] [facility] [address] [id number] [place] [address] September, [facility] [place] [facility] [address] [id number] [place] [address] September, [facility] [place] [facility] [address] [id number] [place] [address] Aug, [facility] [place] [facility] [address] [id number] [place] [address] Aug, [facility] [place] [facility] [address] [id number] [place] [address] Jul, [facility] [place] [facility] [address] [id number] [place] [address] Jul, [facility] [place] [facility] [address] [id number] [place] [address] May, [facility] [place] [facility] [address] [id number] [place] [address] May, [facility] [place] [facility] [address] [id number] [place] [address] May, [facility] [place] [facility] [address] [id number] [place] [address] May, [facility] [place] [facility] [address] [id number] [place] [address] May, [facility] [place] [facility] [address] [id number] [place] [address] May, [facility] [place] [facility] [address] [id number] [address] Apr, [facility] [place] [facility] [address] [id number] [place] [address] Apr, [facility] [place] [facility] [address] [id number] [place] [address] Apr, [facility] [place] [facility] [address] [id number] [place] [address] Apr, [facility] [place] [facility] [address] [id number] [place] [address] Apr, [facility] [place] [facility] [address] [id number] [place] [address] Apr, [facility] [place] [facility] [address] [id number] [place] [address] Apr, [facility] [place] [facility] [address] [id number] [place] [address] Apr, [facility] [place] [facility] [address] [id number] [place] [address] Feb, [facility] [place] [facility] [address] [id number], [place] [address] Feb, [facility] [place] [facility] [address] [id number], [place] [address] Feb, [facility] [place] [facility] [address] [id number], [place] [address] 15 Feb, 2013 [facility] [place] [facility] [address] [id number] [address] 10 Feb, 2013 [facility] [place] [facility] [address] [id number], [place] [address] 10 Feb, 2013 [facility] [place] [facility] [address] [id number], [place] [address] Feb, [facility] [place] [facility] [address] [id number], [place] [address] Feb, [facility] [place] [facility] [address] [id number] [place] [address] Nov, [facility] [address] [id number] [place] [address] Nov, [facility] [address] [id number] [place] [address] Oct, [facility] [address] [id number] [place] [address] Oct, [facility] [address] [id number] [place] [address] Oct, [facility] [address] [id number] [place] [address] September, [facility] [address] [id number] [place] [address] September, [facility] [address] [id number] [place] [address] September, [facility] [address] [id number] [place] [address] September, [facility] [address] [id number] [place] [address] September, [facility] [address] [id number] [place] [address] September, [facility] [address] [id number] [place] [address] September, [facility] [address] [id number] [place] [address] September, [facility] [address] [id number] [place] [address] September, [facility] [address] [id number] [place] [address] September, [facility] [address] [id number] [place] [address] Aug, [facility] [place] [facility] [address] [id number] [place] [address] Jul, [facility] [place] [facility] [address] [id number] [place] [address] Jun, [facility] [place] [facility] [address] [id number] [place] [address] Jun, [facility] [place] [facility] [address] [id number] [place] [address] May, [facility] [place] [facility] [address] [id number] [place] [address] May, [facility] [place] [facility] [address] [id number] [place] [address] Mar, [facility] [place] [facility] [address] [id number] [place] [address] Mar, [facility] [place] [facility] [address] [id number][place] [address] Mar, [facility] [place] [facility] [address] [id number] [place] [address] Mar, [facility] [place] [facility] [address] [facility] [id number], [place] [address] Feb, [facility] [place] [facility] [address] [id number], [place] [address] Feb, [facility] [place] [facility] [address] [id number], [place] [address] Feb, [facility] [place] [facility] [address] [id number] [place] [address] Feb, [facility] [place] [facility] [address] [id number], [place] [address] Feb, [facility] [place] [facility] [address] [id number], [place] [address] Feb, [facility] [place] [facility] [address] [id number] [place] [address] 08 Feb, 2012 [facility] [place] [facility] [address] [id number] [place] [address] 18 Jan, 2012 [facility] [place] [facility] [address] [id number] [place] [address] 14 Jan, 2012 [facility] [place] [facility] [address] [id number] [place] [address] 10 Jan, 2012 [facility] [place] [facility] [address] [id number] [place] [address] 30 Dec, 2011 [facility] [place] [facility] [address] [id number] [place] [address] Dec, [facility] [place] [facility] [address] [id number] [place] [address] Dec, [facility] [place] [facility] [address] [id number] [place] [address] Nov, [facility] [place] [facility] [address] [id number] [place] [address] Oct, [facility] [place] [facility] [address] [id number] [place] [address] Oct, [facility] [place] [facility] [address] [facility] [id number] [place] [address] Oct, [facility] [place] [facility] [address] [id number] [place] [address] Oct, [facility] [place] [facility] [address] [id number] [place] [address] Oct, [facility] [place] [facility] [address] [id number] [place] [address] 24 Aug, 2011 [facility] [place] [facility] [address] [id number] [place] [address] Aug, [facility] [place] [facility] [address] [id number] [place] [address] Jul, [facility] [address] [facility] [id number] [address] Jun, [facility] [address] [facility] [id number] [place] [id number] Jun, [facility] [address] [id number] [address] May, [facility] [address] [facility] [id number] [address] May, [facility] [address] [facility] [id number] [address] May, [facility] [address] [id number] [address] May, [facility] [id number] [address] May, [facility] [id number] [address] Apr, [facility] [address] [id number] [address] Apr, [facility] [id number] [address] Apr, [facility] [address] [id number] [address] Apr, [facility] [address] [id number] [address] Apr, [facility] [address] [id number] [address] Apr, [facility] [address] [id number] [address] Apr, [facility] [address] [id number] [address] Apr, IMMUNIZATIONS Vaccine Route Administration Date Status PALMIRA 1 GM (IM) IM Intramuscular Apr 09, 2017 Administered SOCIAL HISTORY Never Assessed REASON FOR VISIT possible bronchitis, feels like she has very bad chest congestion, head congesti on, runny nose, would like to make sure it is not pneumonia-Vidhi PLAN OF CARE Activity Details Follow Up if not improving with PCP or reg follow up Reason: VITAL SIGNS Height 61 in 2017-04-09 Weight 141.5 lbs 2017-04-09 Temperature 99.0 degrees Fahrenheit 2017-04-09 Heart Rate 84 bpm 2017-04-09 Respiratory Rate 20 2017-04-09 BMI 26.73 kg/m2 2017-04-09 Blood pressure systolic 124 mmHg 2017-04-09 Blood pressure diastolic 78 mmHg 2017-04-09 MEDICATIONS Medication Instructions Dosage Frequency Start Date End Date Duration Status Levofloxacin 500 mg Orally Once a day 1 tablet 24h Apr, Apr, 10 day(s) Active Lopid 600 MG Orally Twice a day 1 tablet 12h Mar, 90 days Active Clonidine HCl 0.2 MG Orally twice a day 1 tablet 12h Mar, 30 day(s) Active Fluoxetine HCl 10 mg Orally Once a day 1 tablet in the morning 24h Mar, 30 day(s) Active Ibuprofen 800 MG 1 tablet with food or milk Three times a day Orally 30 day(s) 30 Not-Taking Atenolol 100 mg Orally twice a day 1 tablet 12h Dec, 90 days Active Benzonatate 100 mg Orally Three times a day 1 capsule as needed 8h Apr, Apr, 10 days Active Pravastatin Sodium 20 mg Orally Once a day 1 tablet 24h Mar, 180 days Active Losartan Potassium 100 mg Orally Once a day 1 tablet 24h 90 days Active MetFORMIN HCl ER 750 MG Orally Once a day 1 tablet with evening meal 24h Mar, 180 days Active PredniSONE 20 mg Orally Once a day 2 tablets 24h Apr, Apr, 05 days Active RESULTS Name Result Date Reference Range INFLUENZA A & B (IN HOUSE) 2017-04-09 INFLUENZA A Negative INFLUENZA B Negative Control + Lot # [id number] Exp date 03/22/2019 STREP A (IN HOUSE) 2017-04-09 STREP A Negative Control + Lot # [id number] Exp date 02/02/2018 Xray : Chest (IN HOUSE) 2017-04-09 PROCEDURES Procedure Date Ordered Result Body Site STREP A ASSAY W/OPTIC Apr 09, 2017 INFLUENZA ASSAY W/OPTIC Apr 09, 2017 ROCEPHIN 1 GM (IM) Apr 09, 2017 CHEST X-RAY Apr 09, 2017 THER/PROPH/DIAG INJ, SC/IM Apr 09, 2017 INSTRUCTIONS MEDICATIONS ADMINISTERED No Known Medications MEDICAL (GENERAL) HISTORY Type Description Date Medical History Diabetes type II Medical History hypertension Medical History fibromyalgia Medical History hyperlipidemia Medical History ostoarthrtis Surgical History hysterectomy has right ovary left 1995 Surgical History shoulder surgery(right) 09/2014 Hospitalization History surgeries Hospitalization History childbirth x 2
--- OUTSIDE RECORDS SUMMARY | 2018-09-19 20:44 | XMS REPORT ---
Author ANNA MARIE Rogers Organization [employer] Address Unknown Phone Unavailable Care Team Providers Care Private Equity Associate Name Role Phone ANNA MARIE LOMELI Unavailable Allergies No Known Allergies Problems Problem Type Condition Code Onset Dates Condition Status Problem Shoulder pain M25.519 Active Problem Diabetes E11.9 Active Problem Depression F32.9 Active Problem Bronchitis J40 Active Problem Insomnia G47.00 Active Problem Fibromyalgia M79.7 Active Problem Hypertension I10 Active Medications Medication Code System Code Instructions Start Date End Date Status Dosage Diflucan [facility] [address]-88 100 MG Orally Once a day Jun 01, 2015 Jun 08, 2015 1 tablet Results No Known Results Summary Purpose [employer] Submission
--- OUTSIDE RECORDS SUMMARY | 2018-09-19 20:44 | XMS REPORT ---
Author Author EARL CIFUENTES [facility] [employer] Address Unknown Phone Unavailable Care Team Providers Care Energy Specialist Name Role Phone EARL CIFUENTES CP Unavailable Allergies, Adverse Reactions, Alerts Substance Reaction Event Type Tetanus Info Not Available Drug Allergy Sulfacetamide Sodium Info Not Available Drug Allergy Penicillin G Potassium Info Not Available Drug Allergy Problems Problem Type Condition Code Onset Dates Condition Status Assessment Bronchitis J40 Active Problem Need for prophylactic vaccination and [...] dermatitis and related conditions 691.8 Active Medications Medication Code System Code Instructions Start Date End Date Status Dosage Promethazine-Codeine [facility] [address]-76 6.25-10 MG/5ML Orally every 6 hrs prn cough Jan 31, 2015 5-10 ml as needed Fish Oil [facility] [address]-54 October 11, 2011 not defined Effexor XR [facility] [address]-04 150 mg May 17, 2014 1 capsule by Oral route 1 time per day metformin [facility] 0 850 mg May 17, 2014 take 1 tablet 2 times per day with morning and evening meals Toprol XL [facility] [address]-84 200 mg May 17, 2014 take 2 tablet by Oral route 1 time per day QHS PredniSONE [facility] [address]-21 20 MG Orally Once a day Feb 11, 2015 As directed Ventolin HFA [facility] [address]-89 108 (90 Base) MCG/ACT Inhalation 4 times a day as needed for cough Jan 31, 2015 2 puffs as needed Norvasc [facility] [address]-44 10 mg 1 TAB orally once a day May 17, 2014 1 tablet by Oral route 1 time per day Procedures Procedure Coding System Code Date Office Visit, Est Pt., Level 2 CPT-4 49262 Feb 11, 2015 Vital Signs Date/Time: Feb 11, 2015 Temperature 98.7 F Weight 141.5 lbs Height 61 in BMI 26.73 Index Blood Pressure Diastolic 90 mmHg Blood Pressure Systolic 160 mmHg Cardiac Monitoring Heart Rate 80 bpm Results No Known Results Summary Purpose [employer]Works Submission
--- OUTSIDE RECORDS SUMMARY | 2018-09-19 20:45 | XMS REPORT ---
Author Author ANNA MARIE LOMELI Organization [facility] Address [address] [place] [address] Care Team Providers Care Box Toe Cutter Name Role Phone NISHA LOMELINETTE Unavailable PROBLEMS Type Condition ICD9-CM Code VRL43-IT Code Onset Dates Condition Status SNOMED Code Problem Diabetes E11.9 Active 83509751 Problem Pure hypercholesterolemia E78.00 Active 678812397 Problem Anxiety associated with depression F41.8 Active 905120068 Problem Depression F32.9 Active 20919321 Problem Fibromyalgia M79.7 Active 66885284 Problem Hypertension I10 Active 13467206 Problem Insomnia G47.00 Active 541450797 Problem Bronchitis J40 Active 89648560 ALLERGIES Substance Reaction Event Type Date Status Tetanus Unknown Drug Allergy Jul, Active Sulfacetamide Sodium Unknown Drug Allergy Jul, Active Penicillin G Potassium Unknown Drug Allergy Jul, Active Azithromycin Unknown Drug Allergy Jul, Active SOCIAL HISTORY Never Assessed PLAN OF CARE Activity Details Follow Up 2 Weeks, prn Reason: VITAL SIGNS Height 61 in 2016-07-16 Weight 138.0 lbs 2016-07-16 Temperature 98.1 degrees Fahrenheit 2016-07-16 Heart Rate 64 bpm 2016-07-16 Respiratory Rate 18 2016-07-16 BMI 26.07 kg/m2 2016-07-16 Blood pressure systolic 160 mmHg 2016-07-16 Blood pressure diastolic 88 mmHg 2016-07-16 MEDICATIONS Medication Instructions Dosage Frequency Start Date End Date Duration Status Ibuprofen 800 MG Orally Three times a day 1 tablet 8h Active metformin 850 mg take 1 tablet 2 times per day with morning and evening meals 24h May, Active Losartan Potassium 100 mg Orally Once a day TAKE ONE TABLET BY MOUTH DAILY 24h Active Toprol XL 100 MG Orally Once a day 2 tablets 24h May, Active Cefdinir 300 MG Orally every 12 hrs 1 capsule 12h 13 Jul, 2016 Jul, 10 day(s) Active Cymbalta 60 mg Orally Once a day 1 capsule 24h Feb, Active Pravastatin Sodium 20 mg Orally Once a day 1 tablet 24h Mar, 90 days Active Clonidine HCl 0.1 MG Orally 2 times a day 1 tablet 12h 90 days Active Lopid 600 MG Orally Twice a day 1 tablet 12h Mar, 90 days Active RESULTS No Results PROCEDURES Procedure Date Ordered Result Body Site DEXAMETHASONE 4MG/ML (PER 1 MG) July 16, 2016 DEPO MEDROL 40 MG/ML July 16, 2016 THER/PROPH/DIAG INJ, SC/IM July 16, 2016 IMMUNIZATIONS Vaccine Route Administration Date Status DEXAMETHASONE 4MG/ML (PER 1 MG) IM Intramuscular July 16, 2016 Administered DEPO MEDROL 40 MG/ML IM Intramuscular July 16, 2016 Administered MEDICAL (GENERAL) HISTORY Type Description Date Medical History Diabetes type II Medical History hypertension Medical History fibromyalgia Medical History hyperlipidemia Medical History ostoarthrtis Surgical History hysterectomy has right ovary left 1995 Surgical History shoulder surgery(right) 09/2014 Hospitalization History surgeries Hospitalization History childbirth x 2
--- OUTSIDE RECORDS SUMMARY | 2018-09-19 20:45 | XMS REPORT ---
Author Author ANNA MARIE LOMELI Organization 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 Automatic Name Role Phone ARMANI ANNA MARIE Unavailable PROBLEMS Type Condition ICD9-CM Code [id number]-W[place] Code Onset Dates Condition Status SNOMED Code Problem Diabetes E11.9 Active 35189935 Problem Pure hypercholesterolemia E78.00 Active 631083804 Problem Anxiety associated with depression F41.8 Active 636297599 Problem Depression F32.9 Active 11532920 Problem Fibromyalgia M79.7 Active 90901578 Problem Hypertension I10 Active 87279717 Problem Insomnia G47.00 Active 352690538 Problem Bronchitis J40 Active 05314133 ALLERGIES No Information SOCIAL HISTORY Never Assessed PLAN OF CARE VITAL SIGNS MEDICATIONS Medication Instructions Dosage Frequency Start Date End Date Duration Status Clonidine HCl 0.1 MG Orally 2 times a day 1 tablet 12h 90 days Active Pravastatin Sodium 20 mg Orally Once a day 1 tablet 24h Mar, 90 days Active Lopid 600 MG Orally Twice a day 1 tablet 12h Mar, 90 days Active RESULTS No Results PROCEDURES No Known procedures IMMUNIZATIONS No Known Immunizations MEDICAL (GENERAL) HISTORY Type Description Date Medical History Diabetes type II Medical History hypertension Medical History fibromyalgia Medical History hyperlipidemia Medical History ostoarthrtis Surgical History hysterectomy has right ovary left 1995 Surgical History shoulder surgery(right) 09/2014 Hospitalization History surgeries Hospitalization History childbirth x 2
--- OUTSIDE RECORDS SUMMARY | 2018-09-19 20:45 | XMS REPORT ---
Author Author ANNA MARIE LOMELI Organization [facility] Address [address] [place] [address] Care Team Providers Care Social Work Assistant Name Role Phone ANNA MARIE LOMELI Unavailable PROBLEMS Type Condition ICD9-CM Code NYN59-EV Code Onset Dates Condition Status SNOMED Code Problem Diabetes E11.9 Active 68741612 Problem Pure hypercholesterolemia E78.00 Active 016771808 Problem Anxiety associated with depression F41.8 Active 115065684 Problem Depression F32.9 Active 62354801 Problem Fibromyalgia M79.7 Active 21127052 Problem Hypertension I10 Active 55756004 Problem Insomnia G47.00 Active 566464852 Problem Bronchitis J40 Active 19981369 ALLERGIES No Information SOCIAL HISTORY Never Assessed PLAN OF CARE VITAL SIGNS MEDICATIONS Medication Instructions Dosage Frequency Start Date End Date Duration Status Cymbalta 60 mg Orally Once a day 1 capsule 24h Feb, Active RESULTS No Results PROCEDURES No [...]
--- OUTSIDE RECORDS SUMMARY | 2018-09-19 20:45 | XMS REPORT ---
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 Name Role Phone ANNA MARIE LOMELI CP Unavailable Allergies, Adverse Reactions, Alerts Substance Reaction Event Type Tetanus Info Not Available Drug Allergy Sulfacetamide Sodium Info Not Available Drug Allergy Penicillin G Potassium Info Not Available Drug Allergy Problems Problem Type Condition Code Onset Dates Condition Status Assessment Diabetes E11.9 Active Problem Bronchitis J40 Active Problem Insomnia G47.00 Active Problem Pain in right shoulder M25.511 Active Problem Depression F32.9 Active Problem Hypercholesterolemia E78.0 Active Problem Fibromyalgia M79.7 Active Problem Hypertension I10 Active Problem Shoulder pain M25.519 Active Problem Diabetes E11.9 Active Assessment Pain in right shoulder M25.511 Active Assessment Depression F32.9 Active Assessment Insomnia G47.00 Active Assessment Hypercholesterolemia E78.0 Active Assessment Hypertension I10 Active Assessment Shoulder pain M25.519 Active Assessment Fibromyalgia M79.7 Active Medications Medication Code System Code Instructions Start Date End Date Status Dosage metformin NDC 0 850 mg Once a day May 17, 2014 take 1 tablet 2 times per day with morning and evening meals Losartan Potassium [facility] 10394916919 100 MG TAKE ONE TABLET BY MOUTH DAILY Pravastatin Sodium [facility] [address]-39 20 MG Orally Once a day Apr 01, [address] [facility] [address]-79 40 mg Orally Once a day August 23, [address] [facility] [address]-39 100 MG 1 TAB orally once a day May 17, 2014 1 tablet by Oral route 1 time per day Clonidine HCl [facility] [address]-91 0.1 MG Orally 2 times a day 1 tablet Trazodone HCl [facility] 11227511487 100 MG Orally Once a day 1 tablet at bedtime Ibuprofen [facility] [address]-26 800 MG Orally Three times a day August 23, 2015 September 22, 2015 1 tablet Toprol XL [facility] [address]-28 200 MG May 17, 2014 1 tablet Procedures Procedure Coding System Code Date COMPLETE CBC W/AUTO DIFF WBC CPT-4 18255 August 23, 2015 COMPREHEN METABOLIC PANEL CPT-4 95856 August 23, 2015 GLYCATED HEMOGLOBIN TEST CPT-4 82655 August 23, 2015 ASSAY THYROID STIM HORMONE CPT-4 64358 August 23, 2015 LIPID PANEL CPT-4 52538 August 23, 2015 Office Visit, Est Pt., Level 4 CPT-4 29089 August 23, 2015 VENIPUNCT, ROUTINE* CPT-4 24689 August 23, 2015 Vital Signs Date/Time: August 23, 2015 Temperature 98.3 F Weight 147.2 lbs Height 61 in BMI 27.81 Index Blood Pressure Diastolic 90 mmHg Blood Pressure Systolic 158 mmHg Cardiac Monitoring Heart Rate 74 bpm Results Name Result Date Reference Range Unit Abnormality Flag CBC ----Lymphs 29 87352397 % ----Neutrophils 62 41366224 % ----Baso (Absolute) 0.0 89649769 0.0-0.2 x10E3/uL ----Hemoglobin 14.6 38182437 11.1-15.9 g/dL ----Eos (Absolute) 0.3 48899169 0.0-0.4 x10E3/uL ----Hematocrit 42.6 72609100 34.0-46.6 % ----Monocytes(Absolute) 0.5 93154739 0.1-0.9 x10E3/uL ----MCV 94 72329245 79-97 fL ----Lymphs (Absolute) 2.4 99260017 0.7-3.1 x10E3/uL ----MCH 32.3 58967554 26.6-33.0 pg ----Neutrophils (Absolute) 5.1 06492449 1.4-7.0 x10E3/uL ----MCHC 34.3 29165026 31.5-35.7 g/dL ----Immature Granulocytes 0 95561620 % ----Basos 0 95789761 % ----RDW 14.4 67874317 12.3-15.4 % ----Immature Grans (Abs) 0.0 12198427 0.0-0.1 x10E3/uL ----WBC 8.3 58924394 3.4-10.8 x10E3/uL ----Platelets 202 43783525 150-379 x10E3/uL ----Eos 3 25338226 % ----RBC 4.52 14586075 3.77-5.28 x10E6/uL ----Monocytes 6 96782583 % LIPID PANEL ----LDL Cholesterol Calc 77 67884397 0-99 mg/dL ----VLDL Cholesterol Chung 46 24807605 5-40 mg/dL H ----Cholesterol, Total 152 57220415 100-199 mg/dL ----HDL Cholesterol 29 53607884 >39 mg/dL L ----Triglycerides 228 73249068 0-149 mg/dL H ROUTINE VENIPUNCTURE TSH ----TSH 0.826 98340307 0.450-4.500 uIU/mL CMP ----Potassium, Serum 4.4 99105920 3.5-5.2 mmol/L ----Sodium, Serum 138 20963511 134-144 mmol/L ----BUN/Creatinine Ratio 17 20150823 11-26 ----eGFR If Africn Am 86 13060661 >59 mL/min/1.73 ----eGFR If NonAfricn Am 75 60695342 >59 mL/min/1.73 ----Creatinine, Serum 0.84 96289566 0.57-1.00 mg/dL ----BUN 14 94697184 8-27 mg/dL ----Glucose, Serum 85 85664833 65-99 mg/dL ----AST (SGOT) 23 20150823 0-40 IU/L ----Globulin, Total 2.7 04323156 1.5-4.5 g/dL ----ALT (SGPT) 20 87423413 0-32 IU/L ----A/G Ratio 1.9 31243968 1.1-2.5 ----Bilirubin, Total 0.7 30256151 0.0-1.2 mg/dL ----Alkaline Phosphatase, S 64 20150823 39-117 IU/L ----Carbon Dioxide, Total 17 20150823 18-29 mmol/L L ----Calcium, Serum 10.2 54843453 8.7-10.3 mg/dL ----Protein, Total, Serum 7.7 20150823 6.0-8.5 g/dL ----Albumin, Serum 5.0 20150823 3.6-4.8 g/dL H ----Chloride, Serum 99 20150823 97-108 mmol/L A1C (IN HOUSE) ----Lot 0567 20150823 ----Previous A1c 5.1 20150823 ----Exp date [id number] ----A1C IN HOUSE 4.7 20150823 4.3 - 5.6 % Summary Purpose eClinicalWorks Submission
--- OUTSIDE RECORDS SUMMARY | 2018-09-19 20:45 | XMS REPORT ---
Author Author DEREK OBED Organization [facility] Address [address] [place] [address] Care Team Providers Care Small Business Consultant Name Role Phone OBED REED Unavailable PROBLEMS Type Condition ICD9-CM Code [id number] Code Onset Dates Condition Status SNOMED Code Problem Hypertension I10 Active 26630994 Problem Anxiety associated with depression F41.8 Active 292254705 Problem Fibromyalgia M79.7 Active 60221945 Problem Insomnia G47.00 Active 971150066 Problem Chronic maxillary sinusitis J32.0 Active 54259823 Problem Adjustment disorder with anxiety F43.22 Active 35295712 Problem Long-term use of high-risk medication Z79.899 Active 192631831 Problem Hyperlipidemia LDL goal <70 E78.5 Active 76625939 Problem Type 2 diabetes mellitus without complication, without long-term current use of insulin E11.9 Active 270135472 Problem Arthritis M19.90 Active 9197298 ALLERGIES No Information ENCOUNTERS Encounter Location Date Diagnosis [place] [id number] [place] [address] Oct, [place] [address] [address] Aug, Hypertension I10 and Dyshidrotic eczema L30.1 [facility] [id number] [place] [address] 14 Jun, 2017 Hyperlipidemia LDL goal <70 E78.5 [facility] [address] [address] Jun, Arthritis M19.90 [place] [id number] [place] [address] May, Hypertension I10 ; Anxiety associated with depression F41.8 ; Hyperlipidemia LDL goal <70 E78.5 and Chronic maxillary sinusitis J32.0 [place] [id number] [place] [address] May, Acute non-recurrent maxillary sinusitis J01.00 and Sore throat J02.9 [place] [id number] [place] [address] May, Dysthymia F34.[address] [address] Apr, Hypertension I10 [address] [address] Apr, Cough R05 ; Sore throat J02.9 and Bronchitis J40 [address] [address] Mar, Anxiety associated with depression F41.8 ; Adjustment disorder with anxiety F43.22 and Depression F32.[address] [address] Mar, [address] [address] Mar, Type 2 diabetes mellitus without complication, without long-term current use of insulin E11.9 ; Hypertension I10 ; Hyperlipidemia LDL goal <70 E78.5 ; Arthritis M19.90 ; Long-term use of high-risk medication Z79.899 and Dysthymia F34.1 [place] [id number] [place] [address] Mar, [address] [address] Mar, [address] [address] Feb, [address] [address] Feb, Acute right hip pain M25.551 and Hypertension I10 [facility] [address] [address] Feb, Diabetes E11.9 [facility] [id number] [place] [address] Jan, Hypertension I10 [facility] [id number] [place] [address] Jan, Hypertension I10 [facility] [id number] [place] [address] Dec, Dysuria R30.0 [facility] [id number] [place] [address] Dec, [facility] [id number] [place] [address] Dec, Fibromyalgia M79.7 [facility] [id number] [place] [address] Dec, Acute recurrent frontal sinusitis J01.11 and Hypertension I10 [facility] [address] [place] [address] Dec, Hypertension I10 [facility] [id number] [place] [address] Dec, [facility] [id number] [place] [address] Dec, Hypertension I10 [facility] [id number] [place] [address] Nov, [facility] [id number] [place] [address] Oct, Fibromyalgia M79.7 ; Hypertension I10 ; Depression F32.9 ; Hypercholesterolemia E78.0 ; Anxiety associated with depression F41.8 and Diabetes E11.9 [facility] [address] [address] September, Essential hypertension I10 ; Diabetes E11.9 ; Anxiety associated with depression F41.8 and Hypercholesterolemia E78.0 [facility] [address] [place] [address] Aug, [facility] [id number] [place] [address] Aug, Diabetes E11.9 [facility] [id number] [place] [address] Aug, [facility] [id number] [place] [address] Jul, Acute non-recurrent maxillary sinusitis J01.00 [facility] [id number] [place] [address] Jul, Anxiety associated with depression F41.8 [facility] [id number] [place] [address] Jun, Anxiety associated with depression F41.8 and Hypercholesterolemia E78.0 [facility] [id number] [place] [address] May, Diabetes E11.9 ; Insomnia G47.00 ; Fibromyalgia M79.7 ; Hypercholesterolemia E78.0 ; Anxiety associated with depression F41.8 and Essential hypertension I10 [facility] [address] [place] [address] May, [facility] [id number] [place] [address] May, [facility] [id number] [place] [address] Mar, [facility] [id number] [place] [address] Mar, Hypertension I10 [facility] [address] [place] [address] Feb, [facility] [id number] [place] [address] Feb, [facility] [id number] [place] [address] Feb, Anxiety associated with depression F41.8 ; Chest tightness R07.89 and Elevated blood pressure I10 [place] [id number] [place] [address] Feb, Encounter for immunization Z23 ; Bronchitis J40 ; Diabetes E11.9 ; Hypertension I10 ; Insomnia G47.00 ; Hypercholesterolemia E78.0 ; Depression F32.9 and Fibromyalgia M79.7 [facility] [id number] [place] [address] Jan, Bronchitis J40 and Depression F32.9 [facility] [id number] [place] [address] Jan, Bronchitis J40 [facility] [address] [address] Dec, [facility] [address] [address] Dec, [place] [address] [address] Nov, Acute non-recurrent frontal sinusitis J01.10 and Hypertension I10 [place] [id number] [place] [address] Nov, [facility] [address] [address] Nov, Diabetes E11.9 ; Fibromyalgia M79.7 ; Hypertension I10 ; Insomnia G47.00 ; Depression F32.9 and Hypercholesterolemia E78.0 [place] [id number] [place] [address] Oct, Hypercholesterolemia E78.0 [facility] [id number] [place] [address] September, [facility] [id number] [place] [address] Aug, Diabetes E11.9 ; Fibromyalgia M79.7 ; Hypertension I10 ; Insomnia G47.00 ; Depression F32.9 ; Shoulder pain M25.519 ; Hypercholesterolemia E78.0 and Pain in right shoulder M25.511 [place] [address] [address] Jul, [place] [address] [address] Jun, Hypercholesterolemia E78.[address] [address] Jun, [place] [address] [address] May, [address] [address] May, Well woman exam Z01.[address] [address] May, Hypertension I10 ; Diabetes E11.9 ; Fibromyalgia M79.7 ; Insomnia G47.00 ; Depression F32.9 and Hypercholesterolemia E78.[address] [address] Apr, [address] [address] Apr, Fibromyalgia M79.7 ; Hypertension I10 ; Bronchitis J40 ; Insomnia G47.00 ; Depression F32.9 ; Shoulder pain M25.519 and Hypercholesterolemia E78.[address] [address] Mar, Hyperlipemia E78.[address] [address] Mar, Diabetes E11.9 ; Hypertension I10 ; Insomnia G47.00 ; Depression F32.9 and Shoulder pain M25.519 [facility] [id number] [place] [address] Mar, [facility] [id number] [place] [address] Feb, [facility] [id number] [place] [address] Feb, Diabetes E11.9 ; Encounter for immunization Z23 ; Fibromyalgia M79.7 ; Hypertension I10 ; Bronchitis J40 and Insomnia G47.00 [facility] [id number] [place] [address] Feb, Bronchitis J40 [facility] [address] [address] Jan, Bronchitis 490 [facility] [id number] [place] [address] Aug, [facility] [id number] [place] [address] Aug, [facility] [id number] [place] [address] Jul, [facility] [id number] [place] [address] Jul, [facility] [id number] [place] [address] Jul, [facility] [id number] [place] [address] Jul, [facility] [id number] [place] [address] Jun, [facility] [id number] [place] [address] Jun, [facility] [id number] [place] [address] May, [facility] [address] [place] [id number] [place] [address] May, [facility] [address] [id number] [place] [address] Apr, [facility] [place] [facility] [address] [id number] [place] [address] Apr, [facility] [address] [id number] [place] [address] Apr, [facility] [place] [facility] [address] [id number] [place] [address] Apr, [facility] [place] [facility] [address] [id number] [place] [address] Apr, [facility] [place] [facility] [address] [id number] [place] [address] Apr, [facility] [place] [facility] [address] [id number] [place] [address] Feb, [facility] [address] [id number] [place] [address] Feb, [facility] [place] [facility] [address] [id number] [place] [address] Jan, [facility] [place] [facility] [address] [id number] [place] [address] Jan, [facility] [place] [facility] [address] [id number] [place] [address] Dec, [facility] [place] [facility] [address] [id number] [place] [address] Dec, [facility] [place] [facility] [address] [id number] [place] [address] September, [facility] [place] [facility] [address] [id number] [place] [address] September, [facility] [place] [facility] [address] [id number] [place] [address] September, [facility] [place] [facility] [address] [id number] [place] [address] September, [facility] [place] [facility] [address] [id number] [place] [address] September, [facility] [place] [facility] [address] [id number] [place] [address] September, [facility] [place] [facility] [address] [id number] [place] [address] Aug, [facility] [place] [facility] [address] [id number] [place] [address] Aug, [facility] [place] [facility] [address] [id number] [place] [address] Jul, [facility] [place] [facility] [address] [id number] [place] [address] Jul, [facility] [place] [facility] [address] [id number] [place] [address] May, [facility] [place] [facility] [address] [id number] [place] [address] May, [facility] [place] [facility] [address] [id number] [place] [address] May, [facility] [place] [facility] [address] [id number] [place] [address] May, [facility] [place] [facility] [address] [id number] [place] [address] May, [facility] [place] [facility] [address] [id number] [place] [address] May, [facility] [place] [facility] [address] [id number] [place] [address] Apr, [facility] [place] [facility] [address] [id number] [place] [address] Apr, [facility] [place] [facility] [address] [id number] [place] [address] Apr, 2012 [facility] [place] [facility] [address] [id number] [place] [address] 19 Apr, 2012 [facility] [place] [facility] [address] [id number] [place] [address] 16 Apr, 2013 [facility] [place] [facility] [address] [id number] [place] [address] 16 Apr, 2013 [facility] [place] [facility] [address] [id number] [place] [address] Apr, [facility] [place] [facility] [address] [id number] [place] [address] Apr, [facility] [place] [facility] [address] [id number] [place] [address] Feb, [facility] [place] [facility] [address] [id number] [place] [address] Feb, [facility] [place] [facility] [address] [id number] [place] [address] Feb, [facility] [place] [facility] [address] [id number] [place] [address] 15 Feb, 2013 [facility] [place] [facility] [address] [id number] [place] [address] Feb, [facility] [place] [facility] [address] [id number] [place] [address] Feb, 2012 [facility] [place] [facility] [address] [id number] [address] Feb, [facility] [place] [facility] [address] [id number] [place] [address] Feb, [facility] [place] [facility] [address] [id number] [address] Nov, [facility] [place] [facility] [address] [id number] [address] Nov, [facility] [place] [facility] [address] [id number] [place] [address] Oct, [facility] [address] [id number] [place] [address] Oct, [facility] [place] [facility] [address] [id number] [place] [address] Oct, [facility] [address] [id number] [place] [address] September, [facility] [address] [id number] [place] [address] September, [facility] [address] [id number] [place] [address] September, [facility] [address] [id number] [place] [address] September, [facility] [address] [id number] [place] [address] September, [facility] [address] [id number] [place] [address] September, [facility] [address] [id number] [place] [address] September, [facility] [address] [id number] [place] [address] September, [facility] [address] [id number] [place] [address] September, [facility] [address] [id number] [place] [address] September, [facility] [place] [facility] [address] [id number] [place] [address] Aug, [facility] [place] [facility] [address] [id number] [place] [address] Jul, [facility] [place] [facility] [address] [id number] [place] [address] Jun, [facility] [place] [facility] [address] [id number] [place] [address] Jun, [facility] [place] [facility] [address] [id number] [place] [address] May, [facility] [place] [facility] [address] [facility] [id number] [place] [address] May, [facility] [place] [facility] [address] [id number] [place] [address] Mar, [facility] [place] [facility] [address] [id number] [place] [address] Mar, [facility] [place] [facility] [address] [facility] [id number] [place] [address] Mar, [facility] [place] [facility] [address] [facility] [id number] [place] [address] Mar, [facility] [place] [facility] [address] [id number] [address] Feb, [facility] [place] [facility] [address] [id number] [place] [address] Feb, [facility] [place] [facility] [address] [facility] [id number] [place] [address] Feb, [facility] [place] [facility] [address] [id number] [address] Feb, [facility] [place] [facility] [address] [id number] [place] [address] Feb, [facility] [place] [facility] [address] [id number] [place] [address] Feb, [facility] [place] [facility] [address] [facility] [id number] [place] [address] Feb, [facility] [place] [facility] [address] [facility] [id number] [place] [address] Jan, [facility] [place] [facility] [address] [id number] [place] [address] 14 Jan, 2012 [facility] [address] [id number] [place] [address] 10 Jan, 2012 [facility] [address] [facility] [id number] [place] [address] 30 Dec, 2011 [facility] [address] [facility] [id number] [place] [address] Dec, [facility] [address] [facility] [id number] [place] [address] Dec, [facility] [address] [facility] [id number] [place] [address], [place] [address] Nov, [facility] [address] [facility] [id number] [place] [address] Oct, [facility] [address] [place] [address] Oct, [facility] [address] [id number] [place] [address] Oct, [facility] [address] [place] [address] Oct, [facility] [address] [id number] [address] Oct, [facility] [id number] [place] [address] Aug, [facility] [address] [facility] [id number] [address] Aug, [facility] [address] [id number] [place] [address] Jul, [facility] [address] [facility] [id number] [address] Jun, [facility] [address] [id number] [id number] Jun, [facility] [address] [facility] [id number] [address] May, [facility] [id number] [address] May, [facility] [id number] [address] May, [facility] [id number] [address] May, [facility] [id number] [address] May, [facility] [id number] [address] Apr, [facility] [id number] [address] Apr, [facility] [id number] [address] Apr, [facility] [id number] [address] Apr, [facility] [id number] [address] Apr, [facility] [address] [id number] [address] Apr, [facility] [id number] [address] Apr, [facility] [address] [id number] [address] Apr, IMMUNIZATIONS No Known Immunizations SOCIAL HISTORY Never Assessed REASON FOR VISIT requesting return call PLAN OF CARE VITAL SIGNS MEDICATIONS Unknown [...]
--- OUTSIDE RECORDS SUMMARY | 2018-09-19 20:46 | XMS REPORT ---
Author Author ANNA MARIE LOMELI [facility] [place] eClinicalWorks Address Unknown Phone Unavailable Care Team Providers Care Supervisor [employer] Name Role Phone ANNA MARIE LOMELI CP Unavailable Allergies, Adverse Reactions, Alerts Substance Reaction Event Type Tetanus Info Not Available Drug Allergy Sulfacetamide Sodium Info Not Available Drug Allergy Penicillin G Potassium Info Not Available Drug Allergy Problems Problem Type Condition Code Onset Dates Condition Status Assessment Bronchitis J40 Active Assessment Insomnia G47.00 Active Assessment Hypertension I10 Active Assessment Fibromyalgia M79.7 Active Assessment Encounter for immunization Z23 Active Assessment Diabetes E11.9 Active Problem Need [...] mg Once a day May 17, 2014 Mar 24, 2015 take 1 tablet 2 times per day with morning and evening meals Ventolin HFA [facility] [address]-29 108 (90 Base) MCG/ACT Inhalation 4 times a day as needed for cough Jan 31, 2015 2 puffs as needed Toprol XL [facility] [address]-41 200 MG May 17, 2014 1 tablet Doxycycline Hyclate [facility] [address]-58 100 MG Orally every 12 hrs Feb 22, 2015 Mar 04, 2015 1 tablet Trazodone HCl [facility] [address]-15 50 MG Orally at hs Feb 22, 2015 1 tablet at bedtime as needed Cozaar [facility] [address]-57 100 MG 1 TAB orally once a day May 17, 2014 1 tablet by Oral route 1 time per day Fish Oil [facility] [address]-58 October 11, 2011 not defined Procedures Procedure Coding System Code Date Office Visit, Est Pt., Level 4 CPT-4 75817 Feb 22, 2015 FLUARIX QUAD (3 & UP)-GSK-2014 CPT-4 26961 Feb 22, 2015 GLYCATED HEMOGLOBIN TEST CPT-4 26477 Feb 22, 2015 SINGLE IMMUNIZATION ADMIN CPT-4 79360 Feb 22, 2015 Vital Signs Date/Time: Feb 22, 2015 Temperature 97.3 F Weight 144.4 lbs Height 61 in BMI 27.28 Index Blood Pressure Diastolic 60 mmHg Blood Pressure Systolic 130 mmHg Cardiac Monitoring Heart Rate 78 bpm Results Name Result Date Reference Range Unit Abnormality Flag A1C (IN HOUSE) Immunizations Vaccine Administration Date FLUARIX QUAD (3 & UP)-GSK-2014Feb 22, 2015 Summary Purpose eClinicalWorks Submission
--- OUTSIDE RECORDS SUMMARY | 2018-09-19 20:46 | XMS REPORT ---
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 Name Role Phone ANETA MIMS Unavailable PROBLEMS Type Condition ICD9-CM Code PMD57-XU Code Onset Dates Condition Status SNOMED Code Problem Hypertension I10 Active 14007184 Problem Anxiety associated with depression F41.8 Active 616852540 Problem Fibromyalgia M79.7 Active 78061727 Problem Insomnia G47.00 Active 035803526 Problem Chronic maxillary sinusitis J32.0 Active 82922749 Problem Adjustment disorder with anxiety F43.22 Active 47999730 Problem Long-term use of high-risk medication Z79.899 Active 304952508 Problem Hyperlipidemia LDL goal <70 E78.5 Active 12754654 Problem Type 2 diabetes mellitus without complication, without long-term current use of insulin E11.9 Active 746521801 Problem Arthritis M19.90 Active 6346892 ALLERGIES Substance Reaction Event Type Date Status Tetanus Unknown Drug Allergy Dec, Active Sulfacetamide Sodium Unknown Drug Allergy Dec, Active Penicillin G Potassium Unknown Drug Allergy Dec, Active Azithromycin Unknown Drug Allergy Dec, Active ENCOUNTERS Encounter Location Date Diagnosis [place] [id number] [address] Jun, Hyperlipidemia LDL goal <70 E78.5 [facility] [id number] [place] [address] Jun, Arthritis M19.90 [place] [id number] [place] [address] May, Hypertension I10 ; Anxiety associated with depression F41.8 ; Hyperlipidemia LDL goal <70 E78.5 and Chronic maxillary sinusitis J32.0 [facility] [id number] [place] [address] May, Acute non-recurrent maxillary sinusitis J01.00 and Sore throat J02.[address] [address] May, Dysthymia F34.[address] [address] Apr, Hypertension I10 [address] [address] Apr, Cough R05 ; Sore throat J02.9 and Bronchitis J40 [address] [address] Mar, Anxiety associated with depression F41.8 ; Adjustment disorder with anxiety F43.22 and Depression F32.[address] [address] Mar, [address] [address] Mar, Type 2 diabetes mellitus without complication, without long-term current use of insulin E11.9 ; Hypertension I10 ; Hyperlipidemia LDL goal <70 E78.5 ; Arthritis M19.90 ; Long-term use of high-risk medication Z79.899 and Dysthymia F34.[address] [address] Mar, [address] [address] Mar, [address] [address] Feb, [address] [address] Feb, Acute right hip pain M25.551 and Hypertension I10 [address] [address] Feb, Diabetes E11.9 [facility] [address] [address] Jan, Hypertension I10 [facility] [id number] [place] [address] Jan, Hypertension I10 [facility] [id number] [place] [address] Dec, Dysuria R30.0 [facility] [id number] [place] [address] Dec, [facility] [id number] [place] [address] Dec, Fibromyalgia M79.7 [facility] [id number] [place] [address] Dec, Acute recurrent frontal sinusitis J01.11 and Hypertension I10 [facility] [id number] [place] [address] Dec, Hypertension I10 [facility] [id number] [place] [address] Dec, [facility] [id number] [place] [address] Dec, Hypertension I10 [facility] [address] [address] Nov, [facility] [id number] [place] [address] Oct, Fibromyalgia M79.7 ; Hypertension I10 ; Depression F32.9 ; Hypercholesterolemia E78.0 ; Anxiety associated with depression F41.8 and Diabetes E11.9 [facility] [id number] [place] [address] September, Essential hypertension I10 ; Diabetes E11.9 ; Anxiety associated with depression F41.8 and Hypercholesterolemia E78.0 [facility] [id number] [place] [address] Aug, [facility] [id number] [place] [address] Aug, Diabetes E11.9 [facility] [id number] [place] [address] Aug, [facility] [id number] [place] [address] Jul, Acute non-recurrent maxillary sinusitis J01.00 [facility] [id number] [place] [address] Jul, Anxiety associated with depression F41.8 [facility] [id number] [place] [address] Jun, Anxiety associated with depression F41.8 and Hypercholesterolemia E78.0 [facility] [id number] [place] [address] May, Diabetes E11.9 ; Insomnia G47.00 ; Fibromyalgia M79.7 ; Hypercholesterolemia E78.0 ; Anxiety associated with depression F41.8 and Essential hypertension I10 [facility] [id number] [place] [address] May, [facility] [id number] [place] [address] May, [facility] [id number] [place] [address] Mar, [facility] [id number] [place] [address] Mar, Hypertension I10 [facility] [id number] [place] [address] Feb, [facility] [address] [id number] [place] [address] Feb, [facility] [address] [address] Feb, Anxiety associated with depression F41.8 ; Chest tightness R07.89 and Elevated blood pressure I10 [place] [address] [address] 11 Feb, 2016 Encounter for immunization Z23 ; Bronchitis J40 ; Diabetes E11.9 ; Hypertension I10 ; Insomnia G47.00 ; Hypercholesterolemia E78.0 ; Depression F32.9 and Fibromyalgia M79.7 [place] [address] [address] Jan, Bronchitis J40 and Depression F32.9 [facility] [address] [address] Jan, Bronchitis J40 [place] [address] [address] Dec, [place] [address] [address] Dec, [place] [address] [address] Nov, Acute non-recurrent frontal sinusitis J01.10 and Hypertension I10 [place] [address] [address] Nov, [place] [address] [address] Nov, Diabetes E11.9 ; Fibromyalgia M79.7 ; Hypertension I10 ; Insomnia G47.00 ; Depression F32.9 and Hypercholesterolemia E78.0 [place] [address] [address] Oct, Hypercholesterolemia E78.0 [place] [address] [address] September, [place] [address] [address] Aug, Diabetes E11.9 ; Fibromyalgia M79.7 ; Hypertension I10 ; Insomnia G47.00 ; Depression F32.9 ; Shoulder pain M25.519 ; Hypercholesterolemia E78.0 and Pain in right shoulder M25.511 [facility] [address] [address] Jul, [facility] [address] [address] Jun, Hypercholesterolemia E78.0 [facility] [address] [address] Jun, [facility] [address] [address] May, [place] [address] [address] May, Well woman exam Z01.419 [place] [address] [address] May, Hypertension I10 ; Diabetes E11.9 ; Fibromyalgia M79.7 ; Insomnia G47.00 ; Depression F32.9 and Hypercholesterolemia E78.0 [place] [address] [address] Apr, [place] [address] [address] Apr, Fibromyalgia M79.7 ; Hypertension I10 ; Bronchitis J40 ; Insomnia G47.00 ; Depression F32.9 ; Shoulder pain M25.519 and Hypercholesterolemia E78.0 [place] [address] [address] Mar, Hyperlipemia E78.5 [place] [address] [address] Mar, Diabetes E11.9 ; Hypertension I10 ; Insomnia G47.00 ; Depression F32.9 and Shoulder pain M25.519 [place] [address] [address] Mar, [facility] [address] [address] Feb, [facility] [address] [address] Feb, Diabetes E11.9 ; Encounter for immunization Z23 ; Fibromyalgia M79.7 ; Hypertension I10 ; Bronchitis J40 and Insomnia G47.00 [facility] [address] [address] Feb, Bronchitis J40 [facility] [address] [address] Jan, Bronchitis 490 [facility] [address] [address] Aug, [facility] [address] [address] Aug, [facility] [address] [address] Jul, [facility] [address] [address] Jul, [facility] [address] [id number] [place] [address] Jul, [facility] [id number] [place] [address] Jul, [facility] [id number] [place] [address] Jun, [facility] [address] [address] Jun, [facility] [address] [address] May, [facility] [address] [id number] [place] [address] May, [facility] [place] [facility] [address] [id number] [place] [address] Apr, [facility] [place] [facility] [address] [id number] [place] [address] Apr, [facility] [place] [facility] [address] [id number] [place] [address] Apr, [facility] [place] [facility] [address] [id number] [place] [address] Apr, [facility] [place] [facility] [address] [id number] [place] [address] Apr, [facility] [place] [facility] [address] [id number] [place] [address] Apr, [facility] [place] [facility] [address] [id number] [place] [address] Feb, [facility] [place] [facility] [address] [id number] [place] [address] Feb, [facility] [place] [facility] [address] [id number] [place] [address] Jan, [facility] [place] [facility] [address] [id number] [place] [address] Jan, [facility] [place] [facility] [address] [id number] [place] [address] Dec, [facility] [place] [facility] [address] [id number] [place] [address] Dec, [facility] [place] [facility] [address] [id number] [place] [address] September, [facility] [place] [facility] [address] [id number] [place] [address] September, [facility] [place] [facility] [address] [id number] [place] [address] September, [facility] [place] [facility] [address] [id number] [place] [address] September, [facility] [address] [id number] [place] [address] September, [facility] [place] [facility] [address] [id number] [place] [address] September, [facility] [place] [facility] [address] [id number] [place] [address] Aug, [facility] [place] [facility] [address] [id number] [place] [address] Aug, [facility] [place] [facility] [address] [id number] [place] [address] Jul, [facility] [place] [facility] [address] [id number] [place] [address] Jul, [facility] [place] [facility] [address] [id number] [place] [address] May, [facility] [place] [facility] [address] [id number] [place] [address] May, [facility] [place] [facility] [address] [id number] [place] [address] May, [facility] [place] [facility] [address] [id number] [place] [address] May, [facility] [place] [facility] [address] [id number] [address] May, [facility] [place] [facility] [address] [id number], [place] [address] May, [facility] [place] [facility] [address] [id number] [place] [address] Apr, [facility] [place] [facility] [address] [id number] [place] [address] Apr, [facility] [place] [facility] [address] [id number] [place] [address] Apr, [facility] [place] [facility] [address] [id number] [place] [address] 19 Apr, 2012 [facility] [place] [facility] [address] [id number] [place] [address] 16 Apr, 2013 [facility] [place] [facility] [address] [id number] [place] [address] 16 Apr, 2013 [facility] [place] [facility] [address] [id number] [place] [address] Apr, [facility] [place] [facility] [address] [id number] [place] [address] Apr, [facility] [place] [facility] [address] [id number] [place] [address] Feb, [facility] [place] [facility] [address] [id number] [place] [address] Feb, [facility] [place] [facility] [address] [id number] [place] [address] 15 Feb, 2013 [facility] [place] [facility] [address] [id number] [place] [address] 15 Feb, 2013 [facility] [place] [facility] [address] [id number] [place] [address] Feb, [facility] [place] [facility] [address] [facility] [id number] [place] [address] 10 Feb, 2013 [facility] [place] [facility] [address] [id number] [place] [address] Feb, [facility] [place] [facility] [address] [id number] [place] [address] Feb, [facility] [place] [facility] [address] [id number] [place] [address] Nov, [facility] [place] [facility] [address] [id number] [place] [address] Nov, [facility] [place] [facility] [address] [id number] [place] [address] Oct, [facility] [place] [facility] [address] [id number] [place] [address] Oct, [facility] [address] [id number] [place] [address] Oct, [facility] [address] [id number] [place] [address] September, [facility] [address] [id number] [place] [address] September, [facility] [address] [id number] [place] [address] September, [facility] [address] [id number] [place] [address] September, [facility] [address] [id number] [place] [address] September, [facility] [address] [id number] [place] [address] September, [facility] [address] [id number] [place] [address] September, [facility] [address] [id number] [place] [address] September, [facility] [address] [id number] [place] [address] September, [facility] [address] [id number] [place] [address] September, [facility] [address] [id number] [place] [address] Aug, [facility] [address] [id number] [place] [address] Jul, [facility] [address] [id number] [place] [address] Jun, [facility] [address] [id number], [place] [address] Jun, [facility] [place] [facility] [address] [id number] [place] [address] May, [facility] [place] [facility] [address] [id number] [place] [address] May, [facility] [place] [facility] [address] [id number] [place] [address] Mar, [facility] [place] [facility] [address] [id number] [place] [address] Mar, [facility] [place] [facility] [address] [id number] [place] [address] Mar, [facility] [place] [facility] [address] [id number] [place] [address] Mar, [facility] [place] [facility] [address] [facility] [id number] [place] [address] Feb, [facility] [place] [facility] [address] [id number] [place] [address] Feb, [facility] [place] [facility] [address] [id number] [place] [address] Feb, [facility] [place] [facility] [address] [id number] [place] [address] Feb, [facility] [place] [facility] [address] [id number], [place] [address] Feb, [facility] [place] [facility] [address] [id number], [place] [address] Feb, [facility] [place] [facility] [address] [id number], [place] [address] Feb, [facility] [place] [facility] [address] [id number], [place] [address] 18 Jan, 2012 [facility] [place] [facility] [address] [id number] [place] [address] 14 Jan, 2012 [facility] [place] [facility] [address] [id number] [place] [address] Jan, [facility] [address] [id number] [place] [address] Dec, [facility] [address] [id number] [place] [address] Dec, [facility] [address] [id number] [place] [address] Dec, [facility] [address] [id number] [place] [address] Nov, [facility] [address] [id number] [place] [address] Oct, [facility] [address] [id number] [place] [address] Oct, [facility] [address] [id number] [place] [address] Oct, [facility] [address] [id number] [place] [address] Oct, [facility] [address] [facility] [id number] [place] [address] Oct, [facility] [address] [facility] [id number] [place] [address] Aug, [facility] [address] [facility] [id number] [place] [address] Aug, [facility] [address] [id number], [place] [address] Jul, [facility] [place] [facility] [address] [facility] [id number] [place] [address] Jun, [facility] [address] [id number] [place] [id number] Jun, [facility] [address] [facility] [id number], [place] [address] May, [facility] [id number] [address] May, [facility] [id number] [address] May, [facility] [id number] [address] May, [facility] [id number] [address] May, [facility] [id number] [address] Apr, [facility] [id number] [address] Apr, [facility] [id number] [address] Apr, [facility] [id number] [address] Apr, [facility] [id number] [address] Apr, [facility] [id number] [address] Apr, [facility] [id number] [address] Apr, [facility] [id number] [address] Apr, IMMUNIZATIONS No Known Immunizations SOCIAL HISTORY Never Assessed REASON FOR VISIT Possible UTI,Pain when urinating and doesnt feel as if she is emptying her kleberdd yudelka Baker MA PLAN OF CARE Activity Details Follow Up prn Reason: VITAL SIGNS Height 61 in 2016-12-27 Weight 136.8 lbs 2016-12-27 Temperature 98.6 degrees Fahrenheit 2016-12-27 Heart Rate 68 bpm 2016-12-27 Respiratory Rate 20 2016-12-27 BMI 25.85 kg/m2 2016-12-27 Blood pressure systolic 164 mmHg 2016-12-27 Blood pressure diastolic 102 mmHg 2016-12-27 MEDICATIONS Medication Instructions Dosage Frequency Start Date End Date Duration Status Pravastatin Sodium 20 mg Orally Once a day 1 tablet 24h Mar, 30 days Active Lopid 600 MG Orally Twice a day 1 tablet 12h Mar, 30 days Active Clonidine HCl 0.1 MG Orally 2 times a day 1 tablet 12h 90 days Active metformin 850 mg by oral route twice a day take 1 tablet 2 times per day with morning and evening meals 12h May, 30 days Active Losartan Potassium 100 mg Orally Once a day TAKE ONE TABLET BY MOUTH DAILY 24h 30 days Active Ibuprofen 800 MG Orally Three times a day 1 tablet with food or milk 8h Dec, 30 day(s) Active Toprol XL 100 mg Orally Once a day 1 tablet 24h May, 30 days Active Atenolol 100 mg Orally Once a day 1 tablet 24h Dec, 30 day(s) Active RESULTS Name Result Date Reference Range CULTURE, URINE 2016-12-27 Urine Culture, Routine Final report Result 1 UA LONG DIP (IN HOUSE) 2016-12-27 Lot # [id number] Exp date 12/2017 Clarity clear Color yellow Odor none GLU negative LAINE negative KET negative SG 1.025 BLO 1+ pH 5.5 Protein negative URO 0.2 NIT negative KATHE 3+ Lot # Exp date PROCEDURES Procedure Date Ordered Result Body Site URINALYSIS, AUTO, W/O SCOPE Dec 27, 2016 URINE CULTURE/COLONY COUNT Dec 27, 2016 INSTRUCTIONS MEDICATIONS ADMINISTERED No Known Medications MEDICAL (GENERAL) HISTORY Type Description Date Medical History Diabetes type II Medical History hypertension Medical History fibromyalgia Medical History hyperlipidemia Medical History ostoarthrtis Surgical History hysterectomy has right ovary left 1995 Surgical History shoulder surgery(right) 09/2014 Hospitalization History surgeries Hospitalization History childbirth x 2
--- OUTSIDE RECORDS SUMMARY | 2018-09-19 20:47 | XMS REPORT ---
Author Author ANNA MARIE Allan Organization [facility] Address [address] [place] [address] Care Team Providers Care Manager Program Management Name Role Phone ANNA MARIE Allan Unavailable PROBLEMS Type Condition ICD9-CM Code WIY06-AS Code Onset Dates Condition Status SNOMED Code Problem Hypertension I10 Active 39083443 Problem Anxiety associated with depression F41.8 Active 971912473 Problem Fibromyalgia M79.7 Active 91962651 Problem Insomnia G47.00 Active 313127986 Problem Chronic maxillary sinusitis J32.0 Active 18973988 Problem Adjustment disorder with anxiety F43.22 Active 01500975 Problem Long-term use of high-risk medication Z79.899 Active 407740493 Problem Hyperlipidemia LDL goal <70 E78.5 Active 30838635 Problem Type 2 diabetes mellitus without complication, without long-term current use of insulin E11.9 Active 945583286 Problem Arthritis M19.90 Active 5928378 ALLERGIES No Information ENCOUNTERS Encounter Location Date Diagnosis [place] [id number] [place] [address] 14 Jun, 2017 Hyperlipidemia LDL goal <70 E78.5 [place] [id number] [place] [address] Jun, Arthritis M19.90 [place] [id number] [place] [address] May, Hypertension I10 ; Anxiety associated with depression F41.8 ; Hyperlipidemia LDL goal <70 E78.5 and Chronic maxillary sinusitis J32.0 [place] [id number] [place] [address] May, Acute non-recurrent maxillary sinusitis J01.00 and Sore throat J02.9 [place] [address] [address] May, Dysthymia F34.1 [place] [address] [address] Apr, Hypertension I10 [address] [address] Apr, Cough R05 ; Sore throat J02.9 and Bronchitis J40 [address] [address] Mar, Anxiety associated with depression F41.8 ; Adjustment disorder with anxiety F43.22 and Depression F32.[address] [address] Mar, [address] [address] Mar, Type 2 diabetes mellitus without complication, without long-term current use of insulin E11.9 ; Hypertension I10 ; Hyperlipidemia LDL goal <70 E78.5 ; Arthritis M19.90 ; Long-term use of high-risk medication Z79.899 and Dysthymia F34.1 [place] [address] [address] Mar, [address] [address] Mar, [place] [address] [address] Feb, [place] [address] [address] Feb, Acute right hip pain M25.551 and Hypertension I10 [place] [address] [address] Feb, Diabetes E11.9 [place] [address] [address] Jan, Hypertension I10 [facility] [address] [address] Jan, Hypertension I10 [facility] [id number] [place] [address] Dec, Dysuria R30.0 [facility] [id number] [place] [address] Dec, [facility] [id number] [place] [address] Dec, Fibromyalgia M79.7 [facility] [id number] [place] [address] Dec, Acute recurrent frontal sinusitis J01.11 and Hypertension I10 [facility] [id number] [place] [address] Dec, Hypertension I10 [facility] [id number] [place] [address] Dec, [facility] [id number] [place] [address] Dec, Hypertension I10 [facility] [id number] [place] [address] Nov, [facility] [id number] [place] [address] Oct, Fibromyalgia M79.7 ; Hypertension I10 ; Depression F32.9 ; Hypercholesterolemia E78.0 ; Anxiety associated with depression F41.8 and Diabetes E11.9 [facility] [address] [address] September, Essential hypertension I10 ; Diabetes E11.9 ; Anxiety associated with depression F41.8 and Hypercholesterolemia E78.0 [facility] [id number] [place] [address] Aug, [facility] [id number] [place] [address] Aug, Diabetes E11.9 [facility] [id number] [place] [address] Aug, [facility] [id number] [place] [address] 13 Jul, 2016 Acute non-recurrent maxillary sinusitis J01.00 [facility] [id number] [place] [address] 06 Jul, 2016 Anxiety associated with depression F41.8 [facility] [id number] [place] [address] Jun, Anxiety associated with depression F41.8 and Hypercholesterolemia E78.0 [facility] [id number] [place] [address] May, Diabetes E11.9 ; Insomnia G47.00 ; Fibromyalgia M79.7 ; Hypercholesterolemia E78.0 ; Anxiety associated with depression F41.8 and Essential hypertension I10 [facility] [address], [place] [address] May, [facility] [id number] [place] [address] May, [facility] [id number] [place] [address] Mar, [facility] [id number] [place] [address] Mar, Hypertension I10 [facility] [address], [place] [address] Feb, [facility] [id number] [place] [address] Feb, [facility] [address], [place] [address] Feb, Anxiety associated with depression F41.8 ; Chest tightness R07.89 and Elevated blood pressure I10 [facility] [id number] [place] [address] 11 Feb, 2016 Encounter for immunization Z23 ; Bronchitis J40 ; Diabetes E11.9 ; Hypertension I10 ; Insomnia G47.00 ; Hypercholesterolemia E78.0 ; Depression F32.9 and Fibromyalgia M79.7 [facility] [address] [address] 27 Jan, 2016 Bronchitis J40 and Depression F32.9 [facility] [address] [address] Jan, Bronchitis J40 [place] [address] [address] Dec, [place] [address] [address] Dec, [place] [address] [address] Nov, Acute non-recurrent frontal sinusitis J01.10 and Hypertension I10 [place] [address] [address] Nov, [place] [address] [address] Nov, Diabetes E11.9 ; Fibromyalgia M79.7 ; Hypertension I10 ; Insomnia G47.00 ; Depression F32.9 and Hypercholesterolemia E78.0 [place] [address] [address] Oct, Hypercholesterolemia E78.0 [place] [address] [address] September, [place] [address] [address] Aug, Diabetes E11.9 ; Fibromyalgia M79.7 ; Hypertension I10 ; Insomnia G47.00 ; Depression F32.9 ; Shoulder pain M25.519 ; Hypercholesterolemia E78.0 and Pain in right shoulder M25.511 [facility] [id number] [place] [address] Jul, [facility] [address] [address] Jun, Hypercholesterolemia E78.0 [facility] [address] [address] Jun, [facility] [address] [address] May, [facility] [address] [address] May, Well woman exam Z01.419 [place] [address] [address] May, Hypertension I10 ; Diabetes E11.9 ; Fibromyalgia M79.7 ; Insomnia G47.00 ; Depression F32.9 and Hypercholesterolemia E78.0 [facility] [id number] [place] [address] Apr, [place] [address] [address] Apr, Fibromyalgia M79.7 ; Hypertension I10 ; Bronchitis J40 ; Insomnia G47.00 ; Depression F32.9 ; Shoulder pain M25.519 and Hypercholesterolemia E78.0 [place] [id number] [place] [address] Mar, Hyperlipemia E78.5 [facility] [id number] [place] [address] Mar, Diabetes E11.9 ; Hypertension I10 ; Insomnia G47.00 ; Depression F32.9 and Shoulder pain M25.519 [facility] [id number] [place] [address] Mar, [facility] [address] [address] Feb, [facility] [id number] [place] [address] Feb, Encounter for immunization Z23 ; Diabetes E11.9 ; Fibromyalgia M79.7 ; Hypertension I10 ; Bronchitis J40 and Insomnia G47.00 [facility] [id number] [place] [address] Feb, Bronchitis J40 [facility] [address] [address] Jan, Bronchitis 490 [facility] [address] [address] Aug, [facility] [address] [address] Aug, [facility] [id number] [place] [address] Jul, [facility] [id number] [place] [address] Jul, [facility] [id number] [place] [address] Jul, [facility] [id number] [place] [address] Jul, [facility] [id number] [place] [address] Jun, [facility] [id number] [place] [address] Jun, [facility] [id number] [place] [address] May, [facility] [id number] [place] [address] May, [facility] [id number] [place] [address] Apr, [facility] [address] [place] [address] Apr, [facility] [place] [facility] [address] [id number] [place] [address] Apr, [facility] [place] [facility] [address] [id number] [place] [address] Apr, [facility] [place] [facility] [address] [id number] [place] [address] Apr, [facility] [place] [facility] [address] [id number] [place] [address] Apr, [facility] [place] [facility] [address] [id number] [place] [address] Feb, [facility] [place] [facility] [address] [id number] [place] [address] Feb, [facility] [place] [facility] [address] [id number] [place] [address] Jan, [facility] [place] [facility] [address] [id number] [place] [address] Jan, [facility] [place] [facility] [address] [id number] [place] [address] Dec, [facility] [place] [facility] [address] [id number] [place] [address] Dec, [facility] [place] [facility] [address] [id number] [place] [address] September, [facility] [place] [facility] [address] [id number] [place] [address] September, [facility] [place] [facility] [address] [id number] [place] [address] September, [facility] [place] [facility] [address] [id number] [place] [address] September, [facility] [place] [facility] [address] [id number] [place] [address] September, [facility] [place] [facility] [address] [id number] [place] [address] September, [facility] [address] [id number] [place] [address] Aug, [facility] [address] [id number] [place] [address] Aug, [facility] [address] [id number] [place] [address] Jul, [facility] [address] [id number] [place] [address] Jul, [facility] [address] [id number] [place] [address] May, [facility] [address] [id number] [place] [address] May, [facility] [address] [id number] [place] [address] May, [facility] [address] [id number] [place] [address] May, [facility] [address] [id number] [place] [address] May, [facility] [address] [id number] [place] [address] May, [facility] [address] [id number] [place] [address] Apr, [facility] [place] [facility] [address] [id number] [place] [address] Apr, [facility] [place] [facility] [address] [id number] [place] [address] Apr, [facility] [place] [facility] [address] [id number] [place] [address] Apr, [facility] [place] [facility] [address] [id number] [place] [address] Apr, [facility] [place] [facility] [address] [id number] [place] [address] Apr, [facility] [place] [facility] [address] [id number] [place] [address] Apr, [facility] [place] [facility] [address] [id number] [place] [address] Apr, [facility] [place] [facility] [address] [id number] [place] [address] Feb, [facility] [place] [facility] [address] [id number] [place] [address] Feb, [facility] [place] [facility] [address] [id number] [place] [address] Feb, [facility] [place] [facility] [address] [id number] [place] [address] Feb, [facility] [place] [facility] [address] [id number] [place] [address] Feb, [facility] [place] [facility] [address] [id number] [place] [address] Feb, [facility] [place] [facility] [address] [id number] [place] [address] Feb, [facility] [place] [facility] [address] [id number], [place] [address] Feb, [facility] [place] [facility] [address] [id number], [place] [address] Nov, [facility] [place] [facility] [address] [id number] [place] [address] Nov, [facility] [place] [facility] [address] [id number] [place] [address] Oct, [facility] [place] [facility] [address] [id number] [place] [address] Oct, [facility] [place] [facility] [address] [id number] [place] [address] Oct, [facility] [address] [id number] [place] [address] September, [facility] [address] [id number] [place] [address] September, [facility] [address] [id number] [place] [address] September, [facility] [address] [id number] [place] [address] September, [facility] [address] [id number] [place] [address] September, [facility] [address] [id number] [place] [address] September, [facility] [address] [id number] [place] [address] September, [facility] [address] [id number] [place] [address] September, [facility] [address] [id number] [place] [address] September, [facility] [address] [id number] [place] [address] September, [facility] [address] [id number] [place] [address] Aug, [facility] [address] [id number] [place] [address] Jul, [facility] [address] [id number] [place] [address] Jun, [facility] [address] [id number] [place] [address] Jun, [facility] [address] [id number] [place] [address] May, [facility] [place] [facility] [address] [id number] [place] [address] May, [facility] [place] [facility] [address] [id number] [place] [address] Mar, [facility] [place] [facility] [address] [id number] [place] [address] Mar, [facility] [place] [facility] [address] [id number] [place] [address] Mar, [facility] [place] [facility] [address] [id number] [place] [address] Mar, [facility] [place] [facility] [address] [id number] [place] [address] Feb, [facility] [place] [facility] [address] [id number] [place] [address] Feb, [facility] [place] [facility] [address] [id number], [place] [address] Feb, [facility] [place] [facility] [address] [id number] [place] [address] Feb, [facility] [place] [facility] [address] [id number], [place] [address] Feb, [facility] [place] [facility] [address] [id number], [place] [address] Feb, [facility] [place] [facility] [address] [id number], [place] [address] Feb, [facility] [place] [facility] [address] [id number] [place] [address] 18 Jan, 2012 [facility] [place] [facility] [address] [id number], [place] [address] 14 Jan, 2012 [facility] [place] [facility] [address] [id number], [place] [address] 10 Jan, 2012 [facility] [place] [facility] [address] [id number] [place] [address] Dec, [facility] [address] [id number] [place] [address] Dec, [facility] [place] [facility] [address] [facility] [place] [id number] [place] [address] Dec, [facility] [place] [facility] [address] [id number] [place] [address] Nov, [facility] [place] [facility] [address] [id number] [place] [address] Oct, [facility] [place] [facility] [address] [id number] [place] [address] Oct, [facility] [place] [facility] [address] [facility] [place] [id number] [place] [address] Oct, [facility] [place] [facility] [address] [id number] [place] [address] Oct, [facility] [place] [facility] [address] [id number] [place] [address] Oct, [facility] [place] [facility] [id number] [place] [address] Aug, [facility] [place] [facility] [id number] [place] [address] Aug, [facility] [place] [facility] [id number] [place] [address] Jul, [facility] [place] [facility] [address] [facility] [place] [id number] [place] [address] Jun, [facility] [address] [id number] [place] [id number] Jun, [facility] [place] [facility] [id number] [place] [address] May, [facility] [place] [facility] [id number] [place] [address] May, [facility] [place] [facility] [address] [facility] [place] [id number], [place] [address] May, [facility] [address] [facility] [place] [id number][place] [address] May, [facility] [address] [facility] [place] [id number], [place] [address] May, [facility] [address] [facility] [place] [id number], [place] [address] Apr, [facility] [address] [facility] [place] [id number], [place] [address] Apr, [facility] [address] [facility] [place] [facility] [place] [id number], [place] [address] Apr, [facility] [address] [facility] [place] [facility] [place] [id number] [address] Apr, [facility] [id number] [address] Apr, [facility] [address] [facility] [place] [facility] [place] [id number][place] [address] Apr, [facility] [address] [facility] [place] [facility] [place] [id number], [place] [address] Apr, [facility] [address] [id number], [place] [address] Apr, IMMUNIZATIONS No Known Immunizations SOCIAL HISTORY Never Assessed REASON FOR VISIT Refill request PLAN OF CARE VITAL SIGNS MEDICATIONS Unknown [...]
--- OUTSIDE RECORDS SUMMARY | 2018-09-19 20:47 | XMS REPORT ---
Author Author NIRALI Holcomb Organization [facility] Address [address] [place] [address] Care Team Providers Care Cryptographic Technician Name Role Phone NIRALI Holcomb Unavailable PROBLEMS Type Condition ICD9-CM Code HXE90-BI Code Onset Dates Condition Status SNOMED Code Problem Hypertension I10 Active 07082377 Problem Anxiety associated with depression F41.8 Active 892174555 Problem Fibromyalgia M79.7 Active 04791271 Problem Insomnia G47.00 Active 025203185 Problem Chronic maxillary sinusitis J32.0 Active 95772923 Problem Adjustment disorder with anxiety F43.22 Active 23028156 Problem Long-term use of high-risk medication Z79.899 Active 212965180 Problem Hyperlipidemia LDL goal <70 E78.5 Active 71854181 Problem Type 2 diabetes mellitus without complication, without long-term current use of insulin E11.9 Active 566094646 Problem Arthritis M19.90 Active 7424926 ALLERGIES Substance Reaction Event Type Date Status Tetanus Unknown Drug Allergy Mar, Active Sulfacetamide Sodium Unknown Drug Allergy Mar, Active Penicillin G Potassium Unknown Drug Allergy Mar, Active Celebrex HEADACHE Drug Allergy Mar, Active Azithromycin Unknown Drug Allergy Mar, Active ENCOUNTERS Encounter Location Date Diagnosis [place] [id number], [place] [address] Oct, [facility] [address], [place] [address] Aug, Hypertension I10 and Dyshidrotic eczema L30.1 [facility] [address] [place] [id number] [address] 14 Jun, 2017 Hyperlipidemia LDL goal <70 E78.5 [place] [address] [place] [address] Jun, Arthritis M19.90 [place] [address] [place] [id number] [place] [address] May, Hypertension I10 ; Anxiety associated with depression F41.8 ; Hyperlipidemia LDL goal <70 E78.5 and Chronic maxillary sinusitis J32.[address] [address] May, Acute non-recurrent maxillary sinusitis J01.00 and Sore throat J02.[address] [address] May, Dysthymia F34.[address] [address] Apr, Hypertension I10 [address] [address] Apr, Cough R05 ; Sore throat J02.9 and Bronchitis J40 [address] [address] Mar, Anxiety associated with depression F41.8 ; Adjustment disorder with anxiety F43.22 and Depression F32.9 [place] [id number] [place] [address] Mar, [address] [address] Mar, Type 2 diabetes mellitus without complication, without long-term current use of insulin E11.9 ; Hypertension I10 ; Hyperlipidemia LDL goal <70 E78.5 ; Arthritis M19.90 ; Long-term use of high-risk medication Z79.899 and Dysthymia F34.[address] [address] Mar, [address] [address] Mar, [address] [place] [address] Feb, [facility] [address] [place] [address] [id number] [place] [address] Feb, Acute right hip pain M25.551 and Hypertension I10 [facility] [address] [id number] [place] [address] Feb, Diabetes E11.9 [facility] [address] [address] Jan, Hypertension I10 [facility] [address] [place] [id number] [place] [address] Jan, Hypertension I10 [facility] [address] [address] Dec, Dysuria R30.0 [facility] [address] [address] Dec, [facility] [address] [address] Dec, Fibromyalgia M79.7 [facility] [address] [address] Dec, Acute recurrent frontal sinusitis J01.11 and Hypertension I10 [facility] [address] [place] [id number] [place] [address] Dec, Hypertension I10 [facility] [address] [id number] [place] [address] Dec, [facility] [address] [id number] [place] [address] Dec, Hypertension I10 [facility] [id number] [place] [address] Nov, [facility] [address] [id number] [place] [address] Oct, Fibromyalgia M79.7 ; Hypertension I10 ; Depression F32.9 ; Hypercholesterolemia E78.0 ; Anxiety associated with depression F41.8 and Diabetes E11.9 [facility] [address], [place] [address] September, Essential hypertension I10 ; Diabetes E11.9 ; Anxiety associated with depression F41.8 and Hypercholesterolemia E78.0 [facility] [address] [place] [address] Aug, [facility] [address] [place] [id number] [place] [address] Aug, Diabetes E11.9 [facility] [address] [place] [id number] [place] [address] Aug, [facility] [address] [place] [id number] [place] [address] Jul, Acute non-recurrent maxillary sinusitis J01.00 [facility] [address] [place] [id number] [place] [address] Jul, Anxiety associated with depression F41.8 [facility] [address] [place] [address] Jun, Anxiety associated with depression F41.8 and Hypercholesterolemia E78.0 [facility] [address], [place] [address] May, Diabetes E11.9 ; Insomnia G47.00 ; Fibromyalgia M79.7 ; Hypercholesterolemia E78.0 ; Anxiety associated with depression F41.8 and Essential hypertension I10 [facility] [address], [place] [address] May, [facility] [address] [place] [id number] [place] [address] May, [facility] [address], [place] [address] Mar, [facility] [address] [place] [id number] [place] [address] Mar, Hypertension I10 [facility] [address] [place] [id number] [place] [address] Feb, [facility] [address] [address] Feb, [facility] [address] [place] [id number] [place] [address] Feb, Anxiety associated with depression F41.8 ; Chest tightness R07.89 and Elevated blood pressure I10 [place] [address] [place] [id number] [place] [address] Feb, Encounter for immunization Z23 ; Bronchitis J40 ; Diabetes E11.9 ; Hypertension I10 ; Insomnia G47.00 ; Hypercholesterolemia E78.0 ; Depression F32.9 and Fibromyalgia M79.7 [place] [address] [place] [id number] [place] [address] Jan, Bronchitis J40 and Depression F32.9 [facility] [address] [place] [id number] [place] [address] Jan, Bronchitis J40 [facility] [address] [address] Dec, [facility] [address] [place] [id number] [place] [address] Dec, [place] [address] [place] [id number] [place] [address] Nov, Acute non-recurrent frontal sinusitis J01.10 and Hypertension I10 [place] [address] [place] [id number] [place] [address] Nov, [address] [address] Nov, Diabetes E11.9 ; Fibromyalgia M79.7 ; Hypertension I10 ; Insomnia G47.00 ; Depression F32.9 and Hypercholesterolemia E78.0 [place] [address] [place] [id number] [place] [address] Oct, Hypercholesterolemia E78.0 [facility] [address] [place] [id number] [place] [address] September, [facility] [address] [place] [id number] [place] [address] Aug, Diabetes E11.9 ; Fibromyalgia M79.7 ; Hypertension I10 ; Insomnia G47.00 ; Depression F32.9 ; Shoulder pain M25.519 ; Hypercholesterolemia E78.0 and Pain in right shoulder M25.511 [facility] [address] [place] [id number] [place] [address] Jul, [facility] [address] [place] [id number] [place] [address] Jun, Hypercholesterolemia E78.0 [facility] [address] [place] [id number] [place] [address] Jun, [facility] [address] [place] [id number] [place] [address] May, [facility] [address] [place] [id number] [place] [address] May, Well woman exam Z01.419 [place] [address] [place] [id number] [place] [address] May, Hypertension I10 ; Diabetes E11.9 ; Fibromyalgia M79.7 ; Insomnia G47.00 ; Depression F32.9 and Hypercholesterolemia E78.0 [facility] [address] [place] [id number] [place] [address] Apr, [facility] [address] [place] [id number] [place] [address] Apr, Fibromyalgia M79.7 ; Hypertension I10 ; Bronchitis J40 ; Insomnia G47.00 ; Depression F32.9 ; Shoulder pain M25.519 and Hypercholesterolemia E78.0 [place] [address] [place] [id number] [place] [address] Mar, Hyperlipemia E78.5 [facility] [address] [place] [id number] [place] [address] Mar, Diabetes E11.9 ; Hypertension I10 ; Insomnia G47.00 ; Depression F32.9 and Shoulder pain M25.519 [facility] [address] [place] [id number] [place] [address] Mar, [facility] [address] [address] Feb, [facility] [address] [address] Feb, Diabetes E11.9 ; Encounter for immunization Z23 ; Fibromyalgia M79.7 ; Hypertension I10 ; Bronchitis J40 and Insomnia G47.00 [facility] [address] [address] Feb, Bronchitis J40 [facility] [address] [address] Jan, Bronchitis 490 [facility] [address] [address] Aug, [facility] [address] [address] Aug, [facility] [address] [place] [id number] [place] [address] Jul, [facility] [address] [address] Jul, [facility] [address] [address] Jul, [facility] [address] [address] Jul, [facility] [address] [place] [id number] [place] [address] Jun, [facility] [address] [place] [address] [place] [address] Jun, [facility] [address] [id number] [place] [address] May, [facility] [place] [facility] [address] [id number] [place] [address] May, [facility] [address] [id number] [place] [address] Apr, [facility] [place] [facility] [address] [id number] [place] [address] Apr, [facility] [address] [id number] [place] [address] Apr, [facility] [place] [facility] [address] [id number] [place] [address] Apr, [facility] [address] [id number] [place] [address] Apr, [facility] [address] [id number] [place] [address] Apr, [facility] [place] [facility] [address] [id number] [place] [address] Feb, [facility] [address] [id number] [place] [address] Feb, [facility] [place] [facility] [address] [id number] [place] [address] Jan, [facility] [place] [facility] [address] [id number] [place] [address] Jan, [facility] [place] [facility] [address] [id number] [place] [address] Dec, [facility] [place] [facility] [address] [id number] [place] [address] Dec, [facility] [place] [facility] [address] [id number] [place] [address] September, [facility] [address] [id number] [place] [address] September, [facility] [place] [facility] [address] [id number] [place] [address] September, [facility] [place] [facility] [address] [id number] [place] [address] September, [facility] [place] [facility] [address] [id number] [place] [address] September, [facility] [place] [facility] [address] [id number] [place] [address] September, [facility] [place] [facility] [address] [id number] [place] [address] Aug, [facility] [place] [facility] [address] [id number] [place] [address] Aug, [facility] [place] [facility] [address] [id number] [place] [address] Jul, [facility] [place] [facility] [address] [id number] [place] [address] Jul, [facility] [place] [facility] [address] [id number] [place] [address] May, [facility] [place] [facility] [address] [id number] [place] [address] May, [facility] [place] [facility] [address] [id number] [place] [address] May, [facility] [place] [facility] [address] [id number] [place] [address] May, [facility] [place] [facility] [address] [id number] [place] [address] May, [facility] [place] [facility] [address] [id number] [place] [address] May, [facility] [place] [facility] [address] [id number], [place] [address] Apr, [facility] [place] [facility] [address] [id number] [place] [address] Apr, [facility] [place] [facility] [address] [id number] [place] [address] Apr, [facility] [place] [facility] [address] [id number] [place] [address] Apr, [facility] [place] [facility] [address] [id number] [place] [address] Apr, [facility] [place] [facility] [address] [id number] [place] [address] Apr, [facility] [place] [facility] [address] [id number] [place] [address] Apr, [facility] [place] [facility] [address] [id number] [place] [address] Apr, [facility] [place] [facility] [address] [id number] [place] [address] Feb, [facility] [place] [facility] [address] [id number], [place] [address] Feb, [facility] [place] [facility] [address] [id number], [place] [address] Feb, [facility] [place] [facility] [address] [id number], [place] [address] 15 Feb, 2013 [facility] [place] [facility] [address] [id number], [place] [address] 10 Feb, 2013 [facility] [place] [facility] [address] [id number], [place] [address] 10 Feb, 2013 [facility] [place] [facility] [address] [id number], [place] [address] Feb, [facility] [place] [facility] [address] [id number], [place] [address] Feb, [facility] [place] [facility] [address] [id number] [place] [address] Nov, [facility] [address] [id number] [place] [address] Nov, [facility] [address] [id number] [place] [address] Oct, [facility] [address] [id number] [place] [address] Oct, [facility] [address] [id number] [place] [address] Oct, [facility] [address] [id number] [place] [address] September, [facility] [address] [id number] [place] [address] September, [facility] [address] [id number] [place] [address] September, [facility] [address] [id number] [place] [address] September, [facility] [address] [id number] [place] [address] September, [facility] [address] [id number] [place] [address] September, [facility] [address] [id number] [place] [address] September, [facility] [address] [id number] [place] [address] September, [facility] [address] [id number] [place] [address] September, [facility] [address] [id number] [place] [address] September, [facility] [address] [id number] [place] [address] Aug, [facility] [place] [facility] [address] [id number] [place] [address] Jul, [facility] [place] [facility] [address] [id number] [place] [address] Jun, [facility] [place] [facility] [address] [id number] [place] [address] Jun, [facility] [place] [facility] [address] [id number] [place] [address] May, [facility] [place] [facility] [address] [id number] [place] [address] May, [facility] [place] [facility] [address] [id number] [place] [address] Mar, [facility] [place] [facility] [address] [id number] [place] [address] Mar, [facility] [place] [facility] [address] [id number], [place] [address] Mar, [facility] [place] [facility] [address] [id number] [place] [address] Mar, [facility] [place] [facility] [address] [facility] [id number], [place] [address] Feb, [facility] [place] [facility] [address] [id number], [place] [address] Feb, [facility] [place] [facility] [address] [id number], [place] [address] Feb, [facility] [place] [facility] [address] [id number] [place] [address] Feb, [facility] [place] [facility] [address] [id number], [place] [address] Feb, [facility] [place] [facility] [address] [id number], [place] [address] Feb, [facility] [place] [facility] [address] [id number] [place] [address] 08 Feb, 2012 [facility] [place] [facility] [address] [id number] [place] [address] 18 Jan, 2012 [facility] [place] [facility] [address] [id number] [place] [address] 14 Jan, 2012 [facility] [place] [facility] [address] [id number] [place] [address] 10 Jan, 2012 [facility] [place] [facility] [address] [id number] [place] [address] 30 Dec, 2011 [facility] [place] [facility] [address] [id number] [place] [address] Dec, [facility] [place] [facility] [address] [id number] [place] [address] Dec, [facility] [place] [facility] [address] [id number] [place] [address] Nov, [facility] [place] [facility] [address] [id number] [place] [address] Oct, [facility] [place] [facility] [address] [id number] [place] [address] Oct, [facility] [place] [facility] [address] [facility] [id number] [place] [address] Oct, [facility] [place] [facility] [address] [id number] [place] [address] Oct, [facility] [place] [facility] [address] [id number] [place] [address] Oct, [facility] [place] [facility] [address] [id number] [place] [address] 24 Aug, 2011 [facility] [place] [facility] [address] [id number] [place] [address] Aug, [facility] [place] [facility] [address] [id number] [place] [address] Jul, [facility] [address] [facility] [id number], [place] [address] Jun, [facility] [address] [facility] [id number] [id number] Jun, [facility] [address], [place] [address] May, [facility] [id number], [place] [address] May, [facility] [address] [facility] [id number], [place] [address] May, [facility] [address], [place] [address] May, [facility] [address], [place] [address] May, [facility] [address], [place] [address] Apr, [facility] [address], [place] [address] Apr, [facility] [address], [place] [address] Apr, [facility] [id number] [address] Apr, [facility] [id number] [address] Apr, [facility] [id number] [address] Apr, [facility] [id number] [address] Apr, [facility] [id number] [address] Apr, IMMUNIZATIONS No Known Immunizations SOCIAL HISTORY Never Assessed REASON FOR VISIT BH intake PLAN OF CARE Activity Details Follow Up prn Reason:Adjustment disorder VITAL SIGNS MEDICATIONS Medication Instructions Dosage Frequency Start Date End Date Duration Status Atenolol 100 mg Orally twice a day 1 tablet 12h Dec, 90 days Unknown Losartan Potassium 100 mg Orally Once a day 1 tablet 24h 90 days Unknown Ibuprofen 800 MG 1 tablet with food or milk Three times a day Orally 30 day(s) 30 Unknown MetFORMIN HCl ER 750 MG Orally Once a day 1 tablet with evening meal 24h Mar, 180 days Unknown Fluoxetine HCl 10 mg Orally Once a day 1 tablet in the morning 24h Mar, 30 day(s) Unknown Clonidine HCl 0.2 MG Orally twice a day 1 tablet 12h Mar, 30 day(s) Unknown Lopid 600 MG Orally Twice a day 1 tablet 12h Mar, 90 days Unknown Pravastatin Sodium 20 mg Orally Once a day 1 tablet 24h Mar, 180 days Unknown RESULTS No Results PROCEDURES Procedure Date Ordered Result Body Site Psych diagnostic evaluation, new patient Apr 02, 2017 INSTRUCTIONS MEDICATIONS ADMINISTERED No Known Medications MEDICAL (GENERAL) HISTORY Type Description Date Medical History Diabetes type II Medical History hypertension Medical History fibromyalgia Medical History hyperlipidemia Medical History ostoarthrtis Surgical History hysterectomy has right ovary left 1995 Surgical History shoulder surgery(right) 09/2014 Hospitalization History surgeries Hospitalization History childbirth x 2
--- OUTSIDE RECORDS SUMMARY | 2018-09-19 20:47 | XMS REPORT ---
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 Administrative Accountant Name Role Phone ANNA MARIE LOMELI Unavailable Allergies, Adverse Reactions, Alerts Substance Reaction [...] M25.519 Active Problem Diabetes E11.9 Active Assessment Depression F32.9 Active Assessment Insomnia G47.00 Active Assessment Hypertension I10 Active Assessment Hypercholesterolemia E78.0 Active Assessment Fibromyalgia M79.7 Active Medications Medication Code System Code Instructions Start Date End Date Status Dosage metformin ND 0 850 mg Once a day May 17, 2014 take 1 tablet 2 times per day with morning and evening meals Celexa [facility] [address]-69 40 mg Orally Once a day August 23, 2015 1 tablet Pravastatin Sodium [facility] [address]-66 20 MG Orally Once a day Apr 01, 2015 1 tablet Fish Oil [facility] [address]-51 October 11, 2011 not defined Trazodone HCl [facility] 36179422658 100 MG Orally Once a day 1 tablet at bedtime Losartan Potassium [facility] 73851643461 100 MG TAKE ONE TABLET BY MOUTH DAILY Clonidine HCl [facility] [address]-70 0.1 MG Orally 2 times a day 1 tablet Ibuprofen [facility] 14766726495 800 MG Orally Three times a day 1 tablet Lopid [facility] [address]-35 600 MG Orally Twice a day Apr 01, 2015 1 tablet Cozaar [facility] [address]-03 100 MG 1 TAB orally once a day May 17, 2014 1 tablet by Oral route 1 time per day Toprol XL [facility] [address]-66 200 MG May 17, 2014 1 tablet Procedures Procedure Coding System Code Date MICROALBUMIN, SEMIQUANT CPT-4 51160 November 15, 2015 Office Visit, Est Pt., Level 4 CPT-4 95487 November 15, 2015 GLYCATED HEMOGLOBIN TEST CPT-4 25573 November 15, 2015 Vital Signs Date/Time: November 15, 2015 Cardiac Monitoring Heart Rate 60 bpm Weight 142 lbs Height 61 in Blood Pressure Diastolic 96 mmHg Blood Pressure Systolic 140 mmHg Results No Known Results Summary Purpose eClinicalWorks Submission
--- OUTSIDE RECORDS SUMMARY | 2018-09-19 20:47 | XMS REPORT ---
Author ANNA MARIE Rogers Organization e[employer] Address Unknown Phone Unavailable Care Team Providers Care Machine Deburrer Name Role Phone ANNA MARIE LOMELI CP Unavailable Allergies No Known Allergies Problems Problem Type Condition Code Onset Dates Condition Status Problem Bronchitis J40 Active Problem Insomnia G47.00 Active Problem Pain in right shoulder M25.511 Active Problem Depression F32.9 Active Problem Hypercholesterolemia E78.0 Active Problem Fibromyalgia M79.7 Active Problem Hypertension I10 Active Problem Shoulder pain M25.519 Active Problem Diabetes E11.9 Active Medications Medication Code System Code Instructions Start Date End Date Status Dosage Bactrim DS [facility] [address]-43 800-160 MG Orally Twice a day Dec 07, 2015 Dec 17, 2015 1 tablet Results No Known Results Summary Purpose eClinicalWorks Submission
--- OUTSIDE RECORDS SUMMARY | 2018-09-19 20:48 | XMS REPORT ---
Author Author ANNA MARIE Allan Organization [facility] Address [address] [place] [address] Care Team Providers Care Communications Manager Name Role Phone ANNA MARIE Allan Unavailable PROBLEMS Type Condition ICD9-CM Code [id number] Code Onset Dates Condition Status SNOMED Code Problem Hypertension I10 Active 20041510 Problem Anxiety associated with depression F41.8 Active 012416566 Problem Fibromyalgia M79.7 Active 45892731 Problem Insomnia G47.00 Active 648417527 Problem Chronic maxillary sinusitis J32.0 Active 25850140 Problem Adjustment disorder with anxiety F43.22 Active 93630987 Problem Long-term use of high-risk medication Z79.899 Active 922126210 Problem Hyperlipidemia LDL goal <70 E78.5 Active 65961753 Problem Type 2 diabetes mellitus without complication, without long-term current use of insulin E11.9 Active 960987104 Problem Arthritis M19.90 Active 3547831 ALLERGIES No Information ENCOUNTERS Encounter Location Date Diagnosis [place] [id number] [place] [id number] 14 Jun, 2017 Hyperlipidemia LDL goal <70 E78.5 [place] [id number] [place] [address] Jun, Arthritis M19.90 [place] [id number] [place] [address] May, Hypertension I10 ; Anxiety associated with depression F41.8 ; Hyperlipidemia LDL goal <70 E78.5 and Chronic maxillary sinusitis J32.0 [place] [id number] [place] [address] May, Acute non-recurrent maxillary sinusitis J01.00 and Sore throat J02.9 [place] [address] [address] May, Dysthymia F34.1 [place] [address] [address] Apr, Hypertension I10 [address] [address] Apr, Cough R05 ; Sore throat J02.9 and Bronchitis J40 [address] [address] Mar, Anxiety associated with depression F41.8 ; Adjustment disorder with anxiety F43.22 and Depression F32.[address] [address] Mar, [address] [address] Mar, Type 2 diabetes mellitus without complication, without long-term current use of insulin E11.9 ; Hypertension I10 ; Hyperlipidemia LDL goal <70 E78.5 ; Arthritis M19.90 ; Long-term use of high-risk medication Z79.899 and Dysthymia F34.1 [place] [address] [address] Mar, [address] [address] Mar, [place] [address] [address] Feb, [place] [address] [address] Feb, Acute right hip pain M25.551 and Hypertension I10 [place] [address] [address] Feb, Diabetes E11.9 [place] [address] [address] Jan, Hypertension I10 [facility] [address] [address] Jan, Hypertension I10 [facility] [id number] [place] [address] Dec, Dysuria R30.0 [facility] [id number] [place] [address] Dec, [facility] [id number] [place] [address] Dec, Fibromyalgia M79.7 [facility] [id number] [place] [address] Dec, Acute recurrent frontal sinusitis J01.11 and Hypertension I10 [facility] [id number] [place] [address] Dec, Hypertension I10 [facility] [id number] [place] [address] Dec, [facility] [address] [place] [address] Dec, Hypertension I10 [facility] [address] [place] [address] Nov, [facility] [address] [place] [address] Oct, Fibromyalgia M79.7 ; Hypertension I10 ; Depression F32.9 ; Hypercholesterolemia E78.0 ; Anxiety associated with depression F41.8 and Diabetes E11.9 [facility] [address] [address] September, Essential hypertension I10 ; Diabetes E11.9 ; Anxiety associated with depression F41.8 and Hypercholesterolemia E78.0 [facility] [id number] [place] [address] Aug, [facility] [id number] [place] [address] Aug, Diabetes E11.9 [facility] [id number] [place] [address] Aug, [facility] [id number] [place] [address] 13 Jul, 2016 Acute non-recurrent maxillary sinusitis J01.00 [facility] [id number] [place] [address] 06 Jul, 2016 Anxiety associated with depression F41.8 [facility] [address] [place] [address] Jun, Anxiety associated with depression F41.8 and Hypercholesterolemia E78.0 [facility] [id number] [place] [address] May, Diabetes E11.9 ; Insomnia G47.00 ; Fibromyalgia M79.7 ; Hypercholesterolemia E78.0 ; Anxiety associated with depression F41.8 and Essential hypertension I10 [facility] [address] [address] May, [facility] [id number] [place] [address] May, [facility] [address] [place] [address] Mar, [facility] [address] [place] [address] Mar, Hypertension I10 [facility] [address] [address] Feb, [facility] [id number] [place] [address] Feb, [facility] [address] [address] Feb, Anxiety associated with depression F41.8 ; Chest tightness R07.89 and Elevated blood pressure I10 [facility] [id number] [place] [address] 11 Feb, 2016 Encounter for immunization Z23 ; Bronchitis J40 ; Diabetes E11.9 ; Hypertension I10 ; Insomnia G47.00 ; Hypercholesterolemia E78.0 ; Depression F32.9 and Fibromyalgia M79.7 [facility] [address] [address] 27 Jan, 2016 Bronchitis J40 and Depression F32.9 [facility] [address] [address] Jan, Bronchitis J40 [place] [address] [address] Dec, [place] [address] [address] Dec, [place] [address] [address] Nov, Acute non-recurrent frontal sinusitis J01.10 and Hypertension I10 [place] [address] [address] Nov, [place] [address] [address] Nov, Diabetes E11.9 ; Fibromyalgia M79.7 ; Hypertension I10 ; Insomnia G47.00 ; Depression F32.9 and Hypercholesterolemia E78.0 [place] [address] [address] Oct, Hypercholesterolemia E78.0 [place] [address] [address] September, [place] [address] [address] Aug, Diabetes E11.9 ; Fibromyalgia M79.7 ; Hypertension I10 ; Insomnia G47.00 ; Depression F32.9 ; Shoulder pain M25.519 ; Hypercholesterolemia E78.0 and Pain in right shoulder M25.511 [facility] [id number] [place] [address] Jul, [facility] [address] [address] Jun, Hypercholesterolemia E78.0 [facility] [address] [address] Jun, [facility] [address] [address] May, [facility] [address] [address] May, Well woman exam Z01.419 [place] [address] [address] May, Hypertension I10 ; Diabetes E11.9 ; Fibromyalgia M79.7 ; Insomnia G47.00 ; Depression F32.9 and Hypercholesterolemia E78.0 [facility] [id number] [place] [address] Apr, [place] [address] [address] Apr, Fibromyalgia M79.7 ; Hypertension I10 ; Bronchitis J40 ; Insomnia G47.00 ; Depression F32.9 ; Shoulder pain M25.519 and Hypercholesterolemia E78.0 [place] [id number] [place] [address] Mar, Hyperlipemia E78.5 [facility] [id number] [place] [address] Mar, Diabetes E11.9 ; Hypertension I10 ; Insomnia G47.00 ; Depression F32.9 and Shoulder pain M25.519 [facility] [id number] [place] [address] Mar, [facility] [address] [address] Feb, [facility] [id number] [place] [address] Feb, Encounter for immunization Z23 ; Diabetes E11.9 ; Fibromyalgia M79.7 ; Hypertension I10 ; Bronchitis J40 and Insomnia G47.00 [facility] [id number] [place] [address] Feb, Bronchitis J40 [facility] [address] [address] Jan, Bronchitis 490 [facility] [address] [address] Aug, [facility] [address] [address] Aug, [facility] [id number] [place] [address] Jul, [facility] [id number] [place] [address] Jul, [facility] [id number] [place] [address] Jul, [facility] [id number] [place] [address] Jul, [facility] [id number] [place] [address] Jun, [facility] [id number] [place] [address] Jun, [facility] [id number] [place] [address] May, [facility] [id number] [place] [address] May, [facility] [id number] [place] [address] Apr, [facility] [address] [place] [id number] [place] [address] Apr, [facility] [place] [facility] [address] [id number] [place] [address] Apr, [facility] [place] [facility] [address] [id number] [place] [address] Apr, [facility] [place] [facility] [address] [id number] [place] [address] Apr, [facility] [place] [facility] [address] [id number] [place] [address] Apr, [facility] [place] [facility] [address] [id number] [place] [address] Feb, [facility] [place] [facility] [address] [id number] [place] [address] Feb, [facility] [place] [facility] [address] [id number] [place] [address] Jan, [facility] [place] [facility] [address] [id number] [place] [address] Jan, [facility] [place] [facility] [address] [id number] [place] [address] Dec, [facility] [place] [facility] [address] [id number] [place] [address] Dec, [facility] [place] [facility] [address] [id number] [place] [address] September, [facility] [place] [facility] [address] [id number] [place] [address] September, [facility] [place] [facility] [address] [id number] [place] [address] September, [facility] [place] [facility] [address] [id number] [place] [address] September, [facility] [place] [facility] [address] [id number] [place] [address] September, [facility] [place] [facility] [address] [id number] [place] [address] September, [facility] [address] [id number] [place] [address] Aug, [facility] [address] [id number] [place] [address] Aug, [facility] [address] [id number] [place] [address] Jul, [facility] [address] [id number] [place] [address] Jul, [facility] [address] [id number] [place] [address] May, [facility] [address] [id number] [place] [address] May, [facility] [address] [id number] [place] [address] May, [facility] [address] [id number] [place] [address] May, [facility] [address] [id number] [place] [address] May, [facility] [address] [id number] [place] [address] May, [facility] [address] [id number] [place] [address] Apr, [facility] [place] [facility] [address] [id number] [place] [address] Apr, [facility] [place] [facility] [address] [id number] [place] [address] Apr, [facility] [place] [facility] [address] [id number] [place] [address] Apr, [facility] [place] [facility] [address] [id number] [place] [address] Apr, [facility] [place] [facility] [address] [id number] [place] [address] Apr, [facility] [place] [facility] [address] [id number] [place] [address] Apr, [facility] [place] [facility] [address] [id number] [place] [address] Apr, [facility] [place] [facility] [address] [id number] [place] [address] Feb, [facility] [place] [facility] [address] [id number] [place] [address] Feb, [facility] [place] [facility] [address] [id number] [place] [address] Feb, [facility] [place] [facility] [address] [id number] [place] [address] Feb, [facility] [place] [facility] [address] [id number] [place] [address] Feb, [facility] [place] [facility] [address] [id number] [place] [address] Feb, [facility] [place] [facility] [address] [id number] [place] [address] Feb, [facility] [place] [facility] [address] [id number] [address] Feb, [facility] [place] [facility] [address] [id number] [address] Nov, [facility] [place] [facility] [address] [id number] [place] [address] Nov, [facility] [place] [facility] [address] [id number] [place] [address] Oct, [facility] [place] [facility] [address] [id number] [place] [address] Oct, [facility] [place] [facility] [address] [id number] [place] [address] Oct, [facility] [address] [id number] [place] [address] September, [facility] [address] [id number] [place] [address] September, [facility] [address] [id number] [place] [address] September, [facility] [address] [id number] [place] [address] September, [facility] [address] [id number] [place] [address] September, [facility] [address] [id number] [place] [address] September, [facility] [address] [id number] [place] [address] September, [facility] [address] [id number] [place] [address] September, [facility] [address] [id number] [place] [address] September, [facility] [address] [id number] [place] [address] September, [facility] [address] [id number] [place] [address] Aug, [facility] [address] [id number] [place] [address] Jul, [facility] [address] [id number] [place] [address] Jun, [facility] [address] [id number] [place] [address] Jun, [facility] [address] [id number] [place] [address] May, [facility] [place] [facility] [address] [id number] [place] [address] May, [facility] [place] [facility] [address] [id number] [place] [address] Mar, [facility] [place] [facility] [address] [id number] [place] [address] Mar, [facility] [place] [facility] [address] [id number] [place] [address] Mar, [facility] [place] [facility] [address] [id number] [place] [address] Mar, [facility] [place] [facility] [address] [id number] [place] [address] Feb, [facility] [place] [facility] [address] [id number] [place] [address] Feb, [facility] [place] [facility] [address] [id number], [place] [address] Feb, [facility] [place] [facility] [address] [id number] [place] [address] Feb, [facility] [place] [facility] [address] [id number], [place] [address] Feb, [facility] [place] [facility] [address] [id number], [place] [address] Feb, [facility] [place] [facility] [address] [id number], [place] [address] Feb, [facility] [place] [facility] [address] [id number] [place] [address] 18 Jan, 2012 [facility] [place] [facility] [address] [id number], [place] [address] 14 Jan, 2012 [facility] [place] [facility] [address] [id number] [address] 10 Jan, 2012 [facility] [place] [facility] [address] [id number] [place] [address] Dec, [facility] [address] [id number] [place] [address] Dec, [facility] [place] [facility] [address] [facility] [id number] [place] [address] Dec, [facility] [place] [facility] [address] [id number] [place] [address] Nov, [facility] [place] [facility] [address] [id number] [place] [address] Oct, [facility] [place] [facility] [address] [id number] [place] [address] Oct, [facility] [place] [facility] [address] [facility] [id number] [place] [address] Oct, [facility] [place] [facility] [address] [id number] [place] [address] Oct, [facility] [place] [facility] [address] [id number] [place] [address] Oct, [facility] [place] [facility] [id number] [address] Aug, [facility] [place] [facility] [id number] [place] [address] Aug, [facility] [place] [facility] [id number] [address] Jul, [facility] [place] [facility] [address] [facility] [id number] [place] [address] Jun, [facility] [address] [id number] [place] [id number] Jun, [facility] [place] [facility] [address] [id number] [address] May, [facility] [place] [facility] [address] [id number] [address] May, [facility] [place] [facility] [address] [facility] [id number] [address] May, [facility] [address] [facility] [id number], [place] [address] May, [facility] [address] [facility] [id number] [address] May, [facility] [address] [facility] [id number] [address] Apr, [facility] [address] [facility] [id number][place] [address] Apr, [facility] [address] [facility] [id number], [place] [address] Apr, [facility] [address] [facility] [id number], [place] [address] Apr, [facility] [id number] [address] Apr, [facility] [address] [facility] [id number][place] [address] Apr, [facility] [address] [facility] [id number], [place] [address] Apr, [facility] [address] [facility] [id number], [place] [address] Apr, IMMUNIZATIONS No Known Immunizations SOCIAL HISTORY Never Assessed REASON FOR VISIT Rx change? PLAN OF CARE VITAL SIGNS MEDICATIONS Medication [...]
--- OUTSIDE RECORDS SUMMARY | 2018-09-19 20:48 | XMS REPORT ---
Author Author ANNA MARIE LOMELI Organization [employer] Address Unknown Phone Unavailable Care Team Providers Care Director Pharmacovigilance Name Role Phone ANNA MARIE LOMELI CP [...] Date End Date Status Dosage Toprol XL [facility] [address]-39 200 MG May 17, 2014 1 tablet Cozaar [facility] [address]-49 100 MG 1 TAB orally once a day May 17, 2014 1 tablet by Oral route 1 time per day Results No Known Results Summary Purpose [employer] Submission
--- OUTSIDE RECORDS SUMMARY | 2018-09-19 20:49 | XMS REPORT ---
Author Author ANNA MARIE LOMELI Organization [employer] Address Unknown Phone Unavailable Care Team Providers Care Director Of Distribution Name Role Phone ANNA MARIE LOMELI CP Unavailable Allergies, Adverse Reactions, Alerts Substance Reaction Event Type Tetanus Info Not Available Drug Allergy Sulfacetamide Sodium Info Not Available Drug Allergy Penicillin G Potassium Info Not Available Drug Allergy Problems Problem Type Condition Code Onset Dates Condition Status Assessment Well woman exam Z01.419 Active Problem Shoulder pain M25.519 Active Problem Diabetes E11.9 Active Problem Depression F32.9 Active Problem Bronchitis J40 Active Problem Insomnia G47.00 Active Problem Fibromyalgia M79.7 Active Problem Hypertension I10 Active Medications Medication Code System Code Instructions Start Date End Date Status Dosage Pravastatin Sodium [facility] [address]-09 20 MG Orally Once a day Apr 01, 2015 1 tablet Celexa [facility] 49222670753 20 MG Orally Once a day 1 tablet Cozaar [facility] [address]-83 100 MG 1 TAB orally once a day May 17, 2014 1 tablet by Oral route 1 time per day Toprol XL [facility] [address]-50 200 MG May 17, 2014 1 tablet Lopid [facility] [address]-54 600 MG Orally Twice a day Apr 01, 2015 1 tablet Trazodone HCl [facility] [address]-52 100 MG Orally Once a day Apr 11, 2015 1 tablet at bedtime Clonidine HCl [facility] 11932303205 0.1 MG Orally 2 times a day 1 tablet Procedures Procedure Coding System Code Date Preventive Care Est Pt. Age 40-64 CPT-4 04101 May 27, 2015 SPECIMEN HANDLING CPT-4 35600 May 27, 2015 Vital Signs Date/Time: May 27, 2015 Temperature 96.8 F Weight 146.2 lbs Height 61 in BMI 27.62 Index Blood Pressure Diastolic 82 mmHg Blood Pressure Systolic 122 mmHg Cardiac Monitoring Heart Rate 78 bpm Results Name Result Date Reference Range Unit Abnormality Flag PDF Report ----PDF Report1 [facility] [id number] Summary Purpose [employer] Submission
--- OUTSIDE RECORDS SUMMARY | 2018-09-19 20:49 | XMS REPORT ---
Author ANNA MARIE Rogers [facility] eClinicalWorks Address Unknown Phone Unavailable Care Team Providers Care Character Impersonator Name Role Phone ANNA MARIE LOMELI CP Unavailable Allergies, Adverse Reactions, Alerts Substance Reaction Event Type Tetanus Info Not Available Drug Allergy Sulfacetamide Sodium Info Not Available Drug Allergy Penicillin G Potassium Info Not Available Drug Allergy Problems Problem Type Condition Code Onset Dates Condition Status Assessment Encounter for immunization Z23 Active Problem Bronchitis J40 Active Problem Insomnia G47.00 Active Problem Pain in right shoulder M25.511 Active Problem Depression F32.9 Active Problem Hypercholesterolemia E78.0 Active Problem Fibromyalgia M79.7 Active Problem Hypertension I10 Active Problem Shoulder pain M25.519 Active Problem Diabetes E11.9 Active Assessment Fibromyalgia M79.7 Active Assessment Insomnia G47.00 Active Assessment Hypertension I10 Active Assessment Depression F32.9 Active Assessment Diabetes E11.9 Active Assessment Hypercholesterolemia E78.0 Active Assessment Bronchitis J40 Active Medications Medication Code System Code Instructions Start Date End Date Status Dosage Ibuprofen [facility] 94328867593 800 MG Orally Three times a day 1 tablet Lopid [facility] [address]-07 600 MG Orally Twice a day Apr 01, 2015 1 tablet Pravastatin Sodium [facility] [address]-12 20 MG Orally Once a day Apr 01, 2015 1 tablet Wellbutrin XL [facility] [address]-42 150 MG Orally Once a day Jan 31, 2016 1 tablet in the morning Clonidine HCl [facility] [address]-31 0.1 MG Orally 2 times a day 1 tablet metformin ND 0 850 mg Once a day May 17, 2014 take 1 tablet 2 times per day with morning and evening meals Toprol XL [facility] [address]-75 200 MG May 17, 2014 1 tablet Trazodone HCl [facility] 41956547263 100 MG Orally Once a day 1 tablet at bedtime Losartan Potassium [facility] 15371456119 100 MG TAKE ONE TABLET BY MOUTH DAILY Procedures Procedure Coding System Code Date SINGLE IMMUNIZATION ADMIN CPT-4 90619 Feb 14, 2016 Office Visit, Est Pt., Level 4 CPT-4 97753 Feb 14, 2016 FLUARIX QUAD P-FREE 3 AND UP .50 2015 CPT-4 02458 Feb 14, 2016 Vital Signs Date/Time: Feb 14, 2016 Cardiac Monitoring Heart Rate 74 bpm Weight 142 lbs Height 61 in BMI 26.83 Index Blood Pressure Diastolic 74 mmHg Blood Pressure Systolic 132 mmHg Results No Known Results Immunizations Vaccine Administration Date FLUARIX QUAD P-FREE 3 AND UP .50 2015Feb 14, 2016 Summary Purpose eClinicalWorks Submission
--- OUTSIDE RECORDS SUMMARY | 2018-09-19 20:49 | XMS REPORT ---
Author Author ANNA MARIE Allan Organization [facility] Address [address] [place] [address] Care Team Providers Care Intake Assessor Name Role Phone Sanjana ANNA MARIE Unavailable PROBLEMS Type Condition ICD9-CM Code GLH56-XK Code Onset Dates Condition Status SNOMED Code Problem Hypertension I10 Active 75227421 Problem Anxiety associated with depression F41.8 Active 276363379 Problem Fibromyalgia M79.7 Active 71031175 Problem Insomnia G47.00 Active 702990476 Problem Chronic maxillary sinusitis J32.0 Active 77504723 Problem Adjustment disorder with anxiety F43.22 Active 81681686 Problem Long-term use of high-risk medication Z79.899 Active 138957152 Problem Hyperlipidemia LDL goal <70 E78.5 Active 75693278 Problem Type 2 diabetes mellitus without complication, without long-term current use of insulin E11.9 Active 254186567 Problem Arthritis M19.90 Active 2220141 ALLERGIES Substance Reaction Event Type Date Status Tetanus Unknown Drug Allergy Oct, Active Sulfacetamide Sodium Unknown Drug Allergy Oct, Active Penicillin G Potassium Unknown Drug Allergy Oct, Active Azithromycin Unknown Drug Allergy Oct, Active ENCOUNTERS Encounter Location Date Diagnosis [place] [id number], [place] [address] Jul, [facility] [id number] [address] Jun, Hyperlipidemia LDL goal <[address] [facility] [id number] [place] [address] Jun, Arthritis M[address].90 [facility] [id number] [address] May, Hypertension I10 ; Anxiety associated with depression F41.8 ; Hyperlipidemia LDL goal <70 E78.5 and Chronic maxillary sinusitis J32.0 [place] [id number] [place] [address] May, Acute non-recurrent maxillary sinusitis J01.00 and Sore throat J02.9 [place] [id number] [place] [address] May, Dysthymia F34.1 [place] [address] [address] Apr, Hypertension I10 [address] [address] Apr, Cough R05 ; Sore throat J02.9 and Bronchitis J40 [address] [address] Mar, Anxiety associated with depression F41.8 ; Adjustment disorder with anxiety F43.22 and Depression F32.9 [place] [id number] [place] [address] Mar, [address] [address] Mar, Type 2 diabetes mellitus without complication, without long-term current use of insulin E11.9 ; Hypertension I10 ; Hyperlipidemia LDL goal <70 E78.5 ; Arthritis M19.90 ; Long-term use of high-risk medication Z79.899 and Dysthymia F34.1 [place] [id number] [place] [address] Mar, [place] [address] [address] Mar, [place] [id number] [place] [address] Feb, [place] [id number] [place] [address] Feb, Acute right hip pain M25.[address] [facility] [address] [place] [address] Feb, Diabetes E11.9 [facility] [id number] [place] [address] Jan, Hypertension I10 [facility] [id number] [place] [address] Jan, Hypertension I10 [facility] [id number] [place] [address] Dec, Dysuria R30.0 [facility] [id number] [place] [address] Dec, [facility] [id number] [place] [address] Dec, Fibromyalgia M79.7 [facility] [id number] [place] [address] Dec, Acute recurrent frontal sinusitis J01.[address] [facility] [id number] [place] [address] Dec, Hypertension I10 [facility] [id number] [place] [address] Dec, [facility] [id number] [place] [address] Dec, Hypertension I10 [facility] [id number] [place] [address] Nov, [facility] [id number] [place] [address] Oct, Fibromyalgia M79.7 ; Hypertension I10 ; Depression F32.9 ; Hypercholesterolemia E78.0 ; Anxiety associated with depression F41.[address] [facility] [address] [place] [address] September, Essential hypertension I10 ; Diabetes E11.9 ; Anxiety associated with depression F41.[address] [facility] [id number] [place] [address] Aug, [facility] [id number] [place] [address] Aug, Diabetes E11.9 [facility] [id number] [place] [address] Aug, [facility] [id number] [place] [address] Jul, Acute non-recurrent maxillary sinusitis J01.00 [facility] [id number] [place] [address] Jul, Anxiety associated with depression F41.8 [facility] [id number] [place] [address] Jun, Anxiety associated with depression F41.[address] [facility] [id number] [place] [address] May, Diabetes E11.9 ; Insomnia G47.00 ; Fibromyalgia M79.7 ; Hypercholesterolemia E78.0 ; Anxiety associated with depression F41.8 and Essential hypertension I10 [facility] [address], [place] [address] May, [facility] [id number] [place] [address] May, [facility] [id number] [place] [address] Mar, [facility] [id number] [place] [address] Mar, Hypertension I10 [facility] [id number] [place] [address] Feb, [facility] [address] [address] Feb, [facility] [address] [address] Feb, Anxiety associated with depression F41.8 ; Chest tightness R07.89 and Elevated blood pressure I10 [place] [address] [address] Feb, Encounter for immunization Z23 ; Bronchitis J40 ; Diabetes E11.9 ; Hypertension I10 ; Insomnia G47.00 ; Hypercholesterolemia E78.0 ; Depression F32.9 and Fibromyalgia M79.7 [place] [address] [address] Jan, Bronchitis J40 and Depression F32.9 [facility] [address] [address] Jan, Bronchitis J40 [facility] [address] [address] Dec, [facility] [address] [address] Dec, [place] [address] [address] Nov, Acute non-recurrent frontal sinusitis J01.10 and Hypertension I10 [place] [address] [address] Nov, [facility] [address] [address] Nov, Diabetes E11.9 ; Fibromyalgia M79.7 ; Hypertension I10 ; Insomnia G47.00 ; Depression F32.9 and Hypercholesterolemia E78.0 [place] [address] [address] Oct, Hypercholesterolemia E78.0 [place] [address] [address] September, [place] [address] [id number] [place] [address] Aug, Diabetes E11.9 ; Fibromyalgia M79.7 ; Hypertension I10 ; Insomnia G47.00 ; Depression F32.9 ; Shoulder pain M25.519 ; Hypercholesterolemia E78.0 and Pain in right shoulder M25.511 [place] [id number] [place] [address] Jul, [place] [address] [address] Jun, Hypercholesterolemia E78.0 [place] [address] [address] Jun, [place] [address] [address] May, [place] [address] [address] May, Well woman exam Z01.[address] [address] May, Hypertension I10 ; Diabetes E11.9 ; Fibromyalgia M79.7 ; Insomnia G47.00 ; Depression F32.9 and Hypercholesterolemia E78.0 [place] [id number] [place] [address] Apr, [address] [address] Apr, Fibromyalgia M79.7 ; Hypertension I10 ; Bronchitis J40 ; Insomnia G47.00 ; Depression F32.9 ; Shoulder pain M25.519 and Hypercholesterolemia E78.[address] [address] Mar, Hyperlipemia E78.5 [place] [id number] [place] [address] Mar, Diabetes E11.9 ; Hypertension I10 ; Insomnia G47.00 ; Depression F32.9 and Shoulder pain M25.519 [facility] [id number] [place] [address] Mar, [facility] [address] [address] Feb, [facility] [address] [address] Feb, Diabetes E11.9 ; Encounter for immunization Z23 ; Fibromyalgia M79.7 ; Hypertension I10 ; Bronchitis J40 and Insomnia G47.00 [facility] [address] [address] Feb, Bronchitis J40 [facility] [address] [address] Jan, Bronchitis 490 [facility] [address] [address] Aug, [facility] [address] [address] Aug, [facility] [address] [address] Jul, [facility] [id number] [place] [address] Jul, [facility] [address] [address] Jul, [facility] [id number] [place] [address] Jul, [facility] [id number] [place] [address] Jun, [facility] [id number] [place] [address] Jun, [facility] [address] [address] May, [facility] [address] [id number] [place] [address] May, [facility] [place] [facility] [address] [id number] [place] [address] Apr, [facility] [place] [facility] [address] [id number] [place] [address] Apr, [facility] [place] [facility] [address] [id number] [place] [address] Apr, [facility] [place] [facility] [address] [id number] [place] [address] Apr, [facility] [place] [facility] [address] [id number] [place] [address] Apr, [facility] [place] [facility] [address] [id number] [place] [address] Apr, [facility] [place] [facility] [address] [id number] [place] [address] Feb, [facility] [place] [facility] [address] [id number] [place] [address] Feb, [facility] [place] [facility] [address] [id number] [place] [address] Jan, [facility] [place] [facility] [address] [id number] [place] [address] Jan, [facility] [place] [facility] [address] [id number] [place] [address] Dec, [facility] [place] [facility] [address] [id number] [place] [address] Dec, [facility] [place] [facility] [address] [id number] [place] [address] September, [facility] [place] [facility] [address] [id number] [place] [address] September, [facility] [place] [facility] [address] [id number] [place] [address] September, [facility] [place] [facility] [address] [id number] [place] [address] September, [facility] [place] [facility] [address] [id number] [place] [address] September, [facility] [place] [facility] [address] [id number] [place] [address] September, [facility] [place] [facility] [address] [id number] [place] [address] Aug, [facility] [place] [facility] [address] [id number] [place] [address] Aug, [facility] [place] [facility] [address] [id number] [place] [address] Jul, [facility] [place] [facility] [address] [id number] [place] [address] Jul, [facility] [place] [facility] [address] [id number] [place] [address] May, [facility] [place] [facility] [address] [id number] [place] [address] May, [facility] [place] [facility] [address] [id number] [place] [address] May, [facility] [place] [facility] [address] [id number] [place] [address] May, [facility] [place] [facility] [address] [id number] [place] [address] May, [facility] [place] [facility] [address] [id number] [place] [address] May, [facility] [place] [facility] [address] [id number] [place] [address] Apr, [facility] [place] [facility] [address] [id number] [place] [address] Apr, [facility] [place] [facility] [address] [id number] [place] [address] 19 Apr, 2012 [facility] [address] [id number] [place] [address] 19 Apr, 2012 [facility] [place] [facility] [address] [id number] [place] [address] 16 Apr, 2013 [facility] [address] [id number] [place] [address] 16 Apr, 2012 [facility] [place] [facility] [address] [id number] [place] [address] Apr, [facility] [address] [id number] [place] [address] Apr, [facility] [place] [facility] [address] [id number] [place] [address] Feb, [facility] [place] [facility] [address] [id number] [place] [address] Feb, [facility] [address] [id number] [place] [address] 15 Feb, 2013 [facility] [place] [facility] [address] [id number] [place] [address] 15 Feb, 2013 [facility] [address] [id number] [place] [address] Feb, [facility] [place] [facility] [address] [id number] [place] [address] 10 Feb, 2013 [facility] [place] [facility] [address] [id number] [place] [address] Feb, [facility] [place] [facility] [address] [id number] [place] [address] Feb, [facility] [place] [facility] [address] [id number] [place] [address] Nov, [facility] [place] [facility] [address] [id number] [place] [address] Nov, [facility] [address] [id number] [place] [address] Oct, [facility] [place] [facility] [address] [id number] [place] [address] Oct, [facility] [place] [facility] [address] [id number] [place] [address] Oct, [facility] [place] [facility] [address] [id number] [place] [address] September, [facility] [address] [id number] [place] [address] September, [facility] [place] [facility] [address] [id number] [place] [address] September, [facility] [address] [id number] [place] [address] September, [facility] [address] [id number] [place] [address] September, [facility] [address] [id number] [place] [address] September, [facility] [address] [id number] [place] [address] September, [facility] [place] [facility] [address] [id number] [place] [address] September, [facility] [place] [facility] [address] [id number] [place] [address] September, [facility] [place] [facility] [address] [id number] [place] [address] September, [facility] [place] [facility] [address] [id number] [place] [address] Aug, [facility] [place] [facility] [address] [id number] [place] [address] Jul, [facility] [place] [facility] [address] [id number] [place] [address] Jun, [facility] [place] [facility] [address] [id number] [place] [address] Jun, [facility] [place] [facility] [address] [id number] [place] [address] May, [facility] [place] [facility] [address] [id number] [place] [address] May, [facility] [place] [facility] [address] [id number] [place] [address] Mar, [facility] [place] [facility] [address] [id number] [place] [address] Mar, [facility] [place] [facility] [address] [id number] [place] [address] Mar, [facility] [place] [facility] [address] [id number] [place] [address] Mar, [facility] [place] [facility] [address] [id number] [place] [address] Feb, [facility] [place] [facility] [address] [id number] [place] [address] Feb, [facility] [place] [facility] [address] [facility] [id number] [place] [address] Feb, [facility] [place] [facility] [address] [id number] [place] [address] Feb, [facility] [place] [facility] [address] [id number], [place] [address] Feb, [facility] [place] [facility] [address] [id number] [place] [address] Feb, [facility] [place] [facility] [address] [id number], [place] [address] Feb, [facility] [place] [facility] [address] [id number], [place] [address] Jan, [facility] [place] [facility] [address] [id number] [place] [address] 14 Jan, 2012 [facility] [place] [facility] [address] [id number] [place] [address] 10 Jan, 2012 [facility] [place] [facility] [address] [facility] [id number] [place] [address] 30 Dec, 2011 [facility] [place] [facility] [address] [id number] [place] [address] Dec, [facility] [address] [id number] [place] [address] Dec, [facility] [place] [facility] [address] [id number] [place] [address] Nov, [facility] [id number] [place] [address] Oct, [facility] [place] [facility] [address] [facility] [id number] [place] [address] Oct, [facility] [id number] [place] [address] Oct, [facility] [id number] [place] [address] Oct, [facility] [address] [id number] [place] [address] Oct, [facility] [address] [facility] [id number] [place] [address] Aug, [facility] [place] [facility] [address] [facility] [id number] [place] [address] Aug, [facility] [place] [facility] [address] [facility] [id number] [place] [address] Jul, [facility] [place] [facility] [address] [facility] [id number] [place] [address] 20 Jun, 2011 [facility] [place] [facility] [address] [facility] [id number] [id number] Jun, [facility] [address] [id number] [address] May, [facility] [id number] [address] May, [facility] [id number] [address] May, [facility] [id number] [address] May, [facility] [id number] [address] May, [facility] [id number] [address] Apr, [facility] [id number] [address] Apr, [facility] [id number] [address] Apr, [facility] [id number] [address] Apr, [facility] [id number] [address] Apr, [facility] [address] [id number] [address] Apr, [facility] [address] [id number] [address] Apr, [facility] [address] [id number], [place] [address] Apr, IMMUNIZATIONS No Known Immunizations SOCIAL HISTORY Never Assessed REASON FOR VISIT htn Anjum PLAN OF CARE Activity Details Follow Up 3 Months Reason:dm htn VITAL SIGNS Height 61 in 2016-10-11 Weight 135.0 lbs 2016-10-11 Temperature 98.3 degrees Fahrenheit 2016-10-11 Heart Rate 60 bpm 2016-10-11 Respiratory Rate 20 2016-10-11 BMI 25.51 kg/m2 2016-10-11 Blood pressure systolic 144 mmHg 2016-10-11 Blood pressure diastolic 76 mmHg 2016-10-11 MEDICATIONS Medication Instructions Dosage Frequency Start Date End Date Duration Status Toprol XL 100 mg Orally Once a day 2 tablets 24h 12 May, 2014 Active Losartan Potassium 100 mg Orally Once a day TAKE ONE TABLET BY MOUTH DAILY 24h 30 days Active Cymbalta 60 mg Orally Once a day 1 capsule 24h Feb, Active Ibuprofen 800 MG Orally Three times a day 1 tablet 8h 30 Active Clonidine HCl 0.1 MG Orally 2 times a day 1 tablet 12h 90 days Active Pravastatin Sodium 20 mg Orally Once a day 1 tablet 24h Mar, 30 days Active Lopid 600 MG Orally Twice a day 1 tablet 12h Mar, 30 days Active metformin 850 mg by oral route twice a day take 1 tablet 2 times per day with morning and evening meals 12h May, 30 days Active RESULTS Name Result Date Reference Range A1C (IN HOUSE) 2016-10-11 A1C IN HOUSE 4.9 4.3 - 5.6 % Previous A1c 4.8 Lot [id number] Exp date PROCEDURES Procedure Date Ordered Result Body Site GLYCATED HEMOGLOBIN TEST October 11, 2016 INSTRUCTIONS MEDICATIONS ADMINISTERED No Known Medications MEDICAL (GENERAL) HISTORY Type Description Date Medical History Diabetes type II Medical History hypertension Medical History fibromyalgia Medical History hyperlipidemia Medical History ostoarthrtis Surgical History hysterectomy has right ovary left 1995 Surgical History shoulder surgery(right) 09/2014 Hospitalization History surgeries Hospitalization History childbirth x 2
--- OUTSIDE RECORDS SUMMARY | 2018-09-19 20:50 | XMS REPORT | Continuity of Care Document ---
Author Organization Unknown Address Unknown Allergies Active Description Code Type Severity Reaction Onset Reported/Identified Relationship to Patient Clinical Status Yes penicillamine Drug Allergy N/A N/A 04/20/2011 Yes tetanus toxoid Drug Allergy N/A N/A 04/20/2011 Yes penicillamine Drug Allergy 04/20/2011 Yes sulfa drug Drug Allergy 04/20/2011 Yes tetanus toxoid Drug Allergy 04/20/2011 Medications There is no data. Problems Date Dx Coded Attending Type Code Diagnosis Diagnosed By 04/20/2011 ANETA MIMS APRN 401.1 HYPERTENSION, BENIGN ESSENTIAL 04/20/2011 ANETA MIMS APRN V49.81 menopause 04/20/2011 ANETA MIMS APRN V72.31 SAWMILL SUPERVISOR EXAM, ROUTINE 04/20/2011 ANETA MIMS APRN V76.10 BREAST CANCER SCREENING 04/20/2011 401.1 HYPERTENSION, BENIGN ESSENTIAL 04/20/2011 V49.81 menopause 04/20/2011 V72.31 Oil Recovery Operator Exam, Routine 04/20/2011 V76.10 BREAST CANCER SCREENING 04/20/2011 401.1 HYPERTENSION, BENIGN ESSENTIAL 04/20/2011 V49.81 menopause 04/20/2011 V72.31 Oil Recovery Operator Exam, Routine 04/20/2011 V76.10 BREAST CANCER SCREENING 04/20/2011 401.1 HYPERTENSION, BENIGN ESSENTIAL 04/20/2011 V49.81 menopause 04/20/2011 V72.31 Oil Recovery Operator Exam, Routine 04/20/2011 V76.10 BREAST CANCER SCREENING 04/20/2011 401.1 HYPERTENSION, BENIGN ESSENTIAL 04/20/2011 V49.81 menopause 04/20/2011 V72.31 Oil Recovery Operator Exam, Routine 04/20/2011 V76.10 BREAST CANCER SCREENING 04/20/2011 VASHTI GARCIA DO 401.1 HYPERTENSION, BENIGN ESSENTIAL 04/20/2011 VASHTI GARCIA DO V49.81 menopause 04/20/2011 VASHTI GARCIA DO V72.31 Oil Recovery Operator Exam, Routine 04/20/2011 GARCIA DO, VASHTI K V76.10 BREAST CANCER SCREENING 04/20/2011 FELICITA US MARKETING DIRECTOR, ANETA S 401.1 HYPERTENSION, BENIGN ESSENTIAL 04/20/2011 FELICITA US MARKETING DIRECTOR, ANETA S V49.81 menopause 04/20/2011 FELICITA US MARKETING DIRECTOR, ANETA S V72.31 Oil Recovery Operator Exam, Routine 04/20/2011 FELICITA US MARKETING DIRECTOR, ANETA S V76.10 BREAST CANCER SCREENING 04/20/2011 GARCIA DO, VASHTI K 401.1 HYPERTENSION, BENIGN ESSENTIAL 04/20/2011 GARCIA DO, VASHTI K V49.81 menopause 04/20/2011 GARCIA DO, VASHTI K V72.31 Oil Recovery Operator Exam, Routine 04/20/2011 GARCIA DO, VASHTI K V76.10 BREAST CANCER SCREENING 04/20/2011 FELICITA US MARKETING DIRECTOR, ANETA S 401.1 HYPERTENSION, BENIGN ESSENTIAL 04/20/2011 FELICITA US MARKETING DIRECTOR, ANETA S V49.81 menopause 04/20/2011 FELICITA US MARKETING DIRECTOR, ANETA S V72.31 Oil Recovery Operator Exam, Routine 04/20/2011 FELICITA US MARKETING DIRECTOR, ANETA S V76.10 BREAST CANCER SCREENING 04/20/2011 BLANCA US MARKETING DIRECTOR, COLUMBA R 401.1 HYPERTENSION, BENIGN ESSENTIAL 04/20/2011 BLANCA US MARKETING DIRECTOR, COLUMBA R V49.81 menopause 04/20/2011 BLANCA US MARKETING DIRECTOR, COLUBMA R V72.31 Oil Recovery Operator Exam, Routine 04/20/2011 BLANCA US MARKETING DIRECTOR, COLUMBA R V76.10 BREAST CANCER SCREENING 04/20/2011 BLANCA US MARKETING DIRECTOR, COLUMBA R 401.1 HYPERTENSION, BENIGN ESSENTIAL 04/20/2011 BLANCA US MARKETING DIRECTOR, COLUMBA R V49.81 menopause 04/20/2011 BLANCA US MARKETING DIRECTOR, COLUMBA R V72.31 Oil Recovery Operator Exam, Routine 04/20/2011 BLANCA US MARKETING DIRECTOR, COLUMBA R V76.10 BREAST CANCER SCREENING 04/20/2011 GARCIA DO, VASHTI K 401.1 HYPERTENSION, BENIGN ESSENTIAL 04/20/2011 GARCIA DO, VASHTI K V49.81 menopause 04/20/2011 GARCIA DO, VASHTI K V72.31 Oil Recovery Operator Exam, Routine 04/20/2011 GARCIA DO, VASHTI K V76.10 BREAST CANCER SCREENING 04/20/2011 GARCIA DO, VASHTI K 401.1 HYPERTENSION, BENIGN ESSENTIAL 04/20/2011 GARCIA DO, VASHTI K V49.81 menopause 04/20/2011 GARCIA DO, VASHTI K V72.31 Oil Recovery Operator Exam, Routine 04/20/2011 GARCIA DO, VASHTI K V76.10 BREAST CANCER SCREENING 04/20/2011 GARCIA DO, VASHTI K 401.1 HYPERTENSION, BENIGN ESSENTIAL 04/20/2011 GARCIA DO, VASHTI K V49.81 menopause 04/20/2011 GARCIA DO, VASHTI K V72.31 Oil Recovery Operator Exam, Routine 04/20/2011 GARCIA DO, VASHTI K V76.10 BREAST CANCER SCREENING 04/20/2011 GARCIA DO, VASHTI K 401.1 HYPERTENSION, BENIGN ESSENTIAL 04/20/2011 GARCIA DO, VASHTI K V49.81 menopause 04/20/2011 GARCIA DO, VASHTI K V72.31 Oil Recovery Operator Exam, Routine 04/20/2011 GARCIA DO, VASHTI K V76.10 BREAST CANCER SCREENING 04/20/2011 GARCIA DO, VASHTI K 401.1 HYPERTENSION, BENIGN ESSENTIAL 04/20/2011 GARCIA DO, VASHTI K V49.81 menopause 04/20/2011 GARCIA DO, VASHTI K V72.31 Oil Recovery Operator Exam, Routine 04/20/2011 GARCIA DO, VASHTI K V76.10 BREAST CANCER SCREENING 04/20/2011 GARCIA DO, VASHTI K 401.1 HYPERTENSION, BENIGN ESSENTIAL 04/20/2011 GARCIA DO, VASHTI K V49.81 menopause 04/20/2011 GARCIA DO, VASHTI K V72.31 Oil Recovery Operator Exam, Routine 04/20/2011 GARCIA DO, VASHTI K V76.10 BREAST CANCER SCREENING 04/20/2011 GARCIA DO, VASHTI K 401.1 HYPERTENSION, BENIGN ESSENTIAL 04/20/2011 GARCIA DO, VASHTI K V49.81 menopause 04/20/2011 GARCIA DO, VASHTI K V72.31 Oil Recovery Operator Exam, Routine 04/20/2011 GARCIA DO, VASHTI K V76.10 BREAST CANCER SCREENING 04/20/2011 GARCIA DO, AVSHTI K 401.1 HYPERTENSION, BENIGN ESSENTIAL 04/20/2011 GARCIA DO, VASHTI K V49.81 menopause 04/20/2011 GARCIA DO, VASHTI K V72.31 Oil Recovery Operator Exam, Routine 04/20/2011 GARCIA DO, VASHTI K V76.10 BREAST CANCER SCREENING 04/20/2011 GARCIA DO, VASHTI K 401.1 HYPERTENSION, BENIGN ESSENTIAL 04/20/2011 GARCIA DO, VASHTI K V49.81 menopause 04/20/2011 GARCIA DO, VASHTI K V72.31 Oil Recovery Operator Exam, Routine 04/20/2011 GARCIA DO, VASHTI K V76.10 BREAST CANCER SCREENING 04/20/2011 GARCIA DO, VASHTI K 401.1 HYPERTENSION, BENIGN ESSENTIAL 04/20/2011 GARCIA DO, VASHTI K V49.81 menopause 04/20/2011 GARCIA DO, VASHTI K V72.31 SAWMILL SUPERVISOR EXAM, ROUTINE 04/20/2011 GARCIA DO, VASHTI K V76.10 BREAST CANCER SCREENING 05/03/2011 DIANA MIMS APRNA S 796.2 ELEVATED BLOOD PRESSURE READING WITHOUT DIAGNOSIS OF HYPERTENSION 05/03/2011 796.2 ELEVATED BLOOD PRESSURE READING WITHOUT DIAGNOSIS OF HYPERTENSION 05/03/2011 796.2 ELEVATED BLOOD PRESSURE READING WITHOUT DIAGNOSIS OF HYPERTENSION 05/03/2011 796.2 ELEVATED BLOOD PRESSURE READING WITHOUT DIAGNOSIS OF HYPERTENSION 05/03/2011 796.2 ELEVATED BLOOD PRESSURE READING WITHOUT DIAGNOSIS OF HYPERTENSION 05/03/2011 GARCIA DO, VASHTI K 796.2 ELEVATED BLOOD PRESSURE READING WITHOUT DIAGNOSIS OF HYPERTENSION 05/03/2011 ANETA MIMS APRN S 796.2 ELEVATED BLOOD PRESSURE READING WITHOUT DIAGNOSIS OF HYPERTENSION 05/03/2011 GARCIA DO, VASHTI K 796.2 ELEVATED BLOOD PRESSURE READING WITHOUT DIAGNOSIS OF HYPERTENSION 05/03/2011 DIANA MIMS APRNA S 796.2 ELEVATED BLOOD PRESSURE READING WITHOUT DIAGNOSIS OF HYPERTENSION 05/03/2011 BLANCA SHAIKH [place] R 796.2 ELEVATED BLOOD PRESSURE READING WITHOUT DIAGNOSIS OF HYPERTENSION 05/03/2011 BLANCA SHAIKH [place] R 796.2 ELEVATED BLOOD PRESSURE READING WITHOUT DIAGNOSIS OF HYPERTENSION 05/03/2011 GARCIA DO, VASHTI K 796.2 ELEVATED BLOOD PRESSURE READING WITHOUT DIAGNOSIS OF HYPERTENSION 05/03/2011 GARCIA DO, VASHTI K 796.2 ELEVATED BLOOD PRESSURE READING WITHOUT DIAGNOSIS OF HYPERTENSION 05/03/2011 GARCIA DO, VASHTI K 796.2 ELEVATED BLOOD PRESSURE READING WITHOUT DIAGNOSIS OF HYPERTENSION 05/03/2011 GARCIA DO, VASHTI K 796.2 ELEVATED BLOOD PRESSURE READING WITHOUT DIAGNOSIS OF HYPERTENSION 05/03/2011 GARCIA DO, VASHTI K 796.2 ELEVATED BLOOD PRESSURE READING WITHOUT DIAGNOSIS OF HYPERTENSION 05/03/2011 GARCIA DO, VASHTI K 796.2 ELEVATED BLOOD PRESSURE READING WITHOUT DIAGNOSIS OF HYPERTENSION 05/03/2011 GARCIA DOLULÚA K 796.2 ELEVATED BLOOD PRESSURE READING WITHOUT DIAGNOSIS OF HYPERTENSION 05/03/2011 GARCIA DOLULÚA K 796.2 ELEVATED BLOOD PRESSURE READING WITHOUT DIAGNOSIS OF HYPERTENSION 05/03/2011 GARCIA DOLULÚA K 796.2 ELEVATED BLOOD PRESSURE READING WITHOUT DIAGNOSIS OF HYPERTENSION 05/03/2011 GARCIA DO VASHTI K 796.2 ELEVATED BLOOD PRESSURE READING WITHOUT DIAGNOSIS OF HYPERTENSION 05/22/2011 ANETA MIMS APRN S 724.5 Back Pain, General 05/22/2011 ANETA MIMS APRN S E849.0 HOME ACCIDENTS 05/22/2011 ANETA MIMS APRN S E885.9 ACCIDENTAL FALL FROM OTHER SLIPPING TRIPPING OR STUMBLING 05/22/2011 724.5 Back Pain, General 05/22/2011 E849.0 Home Accidents 05/22/2011 E885.9 Accidental Fall From Other Slipping Tripping Or Stumbling 05/22/2011 724.5 Back Pain, General 05/22/2011 E849.0 Home Accidents 05/22/2011 E885.9 Accidental Fall From Other Slipping Tripping Or Stumbling 05/22/2011 724.5 Back Pain, General 05/22/2011 E849.0 Home Accidents 05/22/2011 E885.9 Accidental Fall From Other Slipping Tripping Or Stumbling 05/22/2011 724.5 Back Pain, General 05/22/2011 E849.0 Home Accidents 05/22/2011 E885.9 Accidental Fall From Other Slipping Tripping Or Stumbling 05/22/2011 VASHIT GARCIA DO K 724.5 Back Pain, General 05/22/2011 LULÚ GARCIA DOA K E849.0 Home Accidents 05/22/2011 LULÚ GARCIA DOA K E885.9 Accidental Fall From Other Slipping Tripping Or Stumbling 05/22/2011 DIANA MIMS APRNA S 724.5 Back Pain, General 05/22/2011 DIANA MIMS APRNA S E849.0 Home Accidents 05/22/2011 DIANA MIMS APRNA S E885.9 Accidental Fall From Other Slipping Tripping Or Stumbling 05/22/2011 GARCIA DO, VASHTI K 724.5 Back Pain, General 05/22/2011 GARCIA DO, VASHTI K E849.0 Home Accidents 05/22/2011 GARCIA DO, VASHTI K E885.9 Accidental Fall From Other Slipping Tripping Or Stumbling 05/22/2011 FELICITA US MARKETING DIRECTOR, ANETA S 724.5 Back Pain, General 05/22/2011 FELICITA US MARKETING DIRECTOR, ANETA S E849.0 Home Accidents 05/22/2011 FELICITA US MARKETING DIRECTOR, ANETA S E885.9 Accidental Fall From Other Slipping Tripping Or Stumbling 05/22/2011 BLANCA US MARKETING DIRECTOR, COLUMBA R 724.5 Back Pain, General 05/22/2011 BLANCA US MARKETING DIRECTOR, [place]UM[place] R E849.0 Home Accidents 05/22/2011 BLANCA US MARKETING DIRECTOR, [place]UM[place] R E885.9 Accidental Fall From Other Slipping Tripping Or Stumbling 05/22/2011 BLANCA US MARKETING DIRECTOR, COLUMBA R 724.5 Back Pain, General 05/22/2011 BLANCA US MARKETING DIRECTOR, [place]UMBA R E849.0 Home Accidents 05/22/2011 BLANCA US MARKETING DIRECTOR, [place]UMBA R E885.9 Accidental Fall From Other Slipping Tripping Or Stumbling 05/22/2011 GARCIA DO, VASHTI K 724.5 Back Pain, General 05/22/2011 GARCIA DO, VASHTI K E849.0 Home Accidents 05/22/2011 GARCIA DO, VASHTI K E885.9 Accidental Fall From Other Slipping Tripping Or Stumbling 05/22/2011 GARCIA DO, VASHTI K 724.5 Back Pain, General 05/22/2011 GARCIA DO, VASHTI K E849.0 Home Accidents 05/22/2011 GARCIA DO, VASHTI K E885.9 Accidental Fall From Other Slipping Tripping Or Stumbling 05/22/2011 GARCIA DO, VASHTI K 724.5 Back Pain, General 05/22/2011 GARCIA DO, VASHTI K E849.0 Home Accidents 05/22/2011 GARCIA DO, VASHTI K E885.9 Accidental Fall From Other Slipping Tripping Or Stumbling 05/22/2011 GARCIA DO, VASHTI K 724.5 Back Pain, General 05/22/2011 GARCIA DO, VASHTI K E849.0 Home Accidents 05/22/2011 GARCIA DO, VASHTI K E885.9 Accidental Fall From Other Slipping Tripping Or Stumbling 05/22/2011 GARCIA DO, VASHTI K 724.5 Back Pain, General 05/22/2011 GARCIA DO, VASHTI K E849.0 Home Accidents 05/22/2011 GARCIA DO, VASHTI K E885.9 Accidental Fall From Other Slipping Tripping Or Stumbling 05/22/2011 GARCIA DO, VASHTI K 724.5 Back Pain, General 05/22/2011 GARCIA DO, VASHTI K E849.0 Home Accidents 05/22/2011 GARCIA DO, VASHTI K E885.9 Accidental Fall From Other Slipping Tripping Or Stumbling 05/22/2011 GARCIA DO, VASHTI K 724.5 Back Pain, General 05/22/2011 GARCIA DO, VASHTI K E849.0 Home Accidents 05/22/2011 GARCIA DO, VASHTI K E885.9 Accidental Fall From Other Slipping Tripping Or Stumbling 05/22/2011 GARCIA DO, VASHTI K 724.5 Back Pain, General 05/22/2011 GARCIA DO, VASHTI K E849.0 Home Accidents 05/22/2011 GARCIA DO, VASHTI K E885.9 Accidental Fall From Other Slipping Tripping Or Stumbling 05/22/2011 GARCIA DO, VASHTI K 724.5 Back Pain, General 05/22/2011 GARCIA DO, VASHTI K E849.0 Home Accidents 05/22/2011 GARCIA DO, VASHTI K E885.9 Accidental Fall From Other Slipping Tripping Or Stumbling 05/22/2011 GARCIA DO, VASHTI K 724.5 Back Pain, General 05/22/2011 GARCIA DO, VASHTI K E849.0 HOME ACCIDENTS 05/22/2011 GARCIA DO, VASHTI K E885.9 ACCIDENTAL FALL FROM OTHER SLIPPING TRIPPING OR STUMBLING 10/11/2011 ANETA MIMS APRN 462 Acute Pharyngitis 10/11/2011 462 Acute Pharyngitis 10/11/2011 462 Acute Pharyngitis 10/11/2011 462 Acute Pharyngitis 10/11/2011 462 Acute Pharyngitis 10/11/2011 LULÚ GARCIA DOA K 462 Acute Pharyngitis 10/11/2011 ANETA MIMS APRN 462 Acute Pharyngitis 10/11/2011 GARCIA DO, VASHTI K 462 Acute Pharyngitis 10/11/2011 ANETA MIMS APRN S 462 Acute Pharyngitis 10/11/2011 BLANCA US MARKETING DIRECTOR, COLUMBA R 462 Acute Pharyngitis 10/11/2011 BLANCA US MARKETING DIRECTOR, COLUM[place] R 462 Acute Pharyngitis 10/11/2011 GARCIA DO, VASHTI K 462 Acute Pharyngitis 10/11/2011 GARCIA DO, VASHTI K 462 Acute Pharyngitis 10/11/2011 GARCIA DO, VASHTI K 462 Acute Pharyngitis 10/11/2011 GARCIA DO, VASHTI K 462 Acute Pharyngitis 10/11/2011 GARCIA DO, VASHTI K 462 Acute Pharyngitis 10/11/2011 GARCIA DO, VASHTI K 462 Acute Pharyngitis 10/11/2011 GARCIA DO, VASHTI K 462 Acute Pharyngitis 10/11/2011 GARCIA DO, VASHTI K 462 Acute Pharyngitis 10/11/2011 GARCIA DO, VASHTI K 462 Acute Pharyngitis 10/11/2011 GARCIA DO, VASHTI K 462 Acute Pharyngitis 10/26/2011 ROSA MIMS APRNNDA S 729.1 Myalgia And Myositis Unspecified 10/26/2011 FELICITA SHAIKH ANETA S 780.79 OTHER MALAISE AND FATIGUE 10/26/2011 729.1 Myalgia And Myositis Unspecified 10/26/2011 780.79 OTHER MALAISE AND FATIGUE 10/26/2011 729.1 Myalgia And Myositis Unspecified 10/26/2011 780.79 OTHER MALAISE AND FATIGUE 10/26/2011 729.1 Myalgia And Myositis Unspecified 10/26/2011 780.79 OTHER MALAISE AND FATIGUE 10/26/2011 729.1 Myalgia And Myositis Unspecified 10/26/2011 780.79 OTHER MALAISE AND FATIGUE 10/26/2011 GARCIA DO, VASHTI K 729.1 Myalgia And Myositis Unspecified 10/26/2011 GARCIA DO, VASHTI K 780.79 OTHER MALAISE AND FATIGUE 10/26/2011 FELICITA US MARKETING DIRECTOR, ANETA S 729.1 Myalgia And Myositis Unspecified 10/26/2011 FELICITA US MARKETING DIRECTOR, ANETA S 780.79 OTHER MALAISE AND FATIGUE 10/26/2011 GARCIA DO, VASHTI K 729.1 Myalgia And Myositis Unspecified 10/26/2011 GARCIA DO, VASHTI K 780.79 OTHER MALAISE AND FATIGUE 10/26/2011 FELICITA US MARKETING DIRECTOR, ANETA S 729.1 Myalgia And Myositis Unspecified 10/26/2011 FELICITA US MARKETING DIRECTOR, ANETA S 780.79 OTHER MALAISE AND FATIGUE 10/26/2011 BLANCA US MARKETING DIRECTOR, COLUMBA R 729.1 Myalgia And Myositis Unspecified 10/26/2011 BLANCA US MARKETING DIRECTOR, COLUMBA R 780.79 OTHER MALAISE AND FATIGUE 10/26/2011 BLANCA US MARKETING DIRECTOR, COLUMBA R 729.1 Myalgia And Myositis Unspecified 10/26/2011 BLANCA US MARKETING DIRECTOR, COLUMBA R 780.79 OTHER MALAISE AND FATIGUE 10/26/2011 GARCIA DO, VASHTI K 729.1 Myalgia And Myositis Unspecified 10/26/2011 GARCIA DO, VASHTI K 780.79 OTHER MALAISE AND FATIGUE 10/26/2011 GARCIA DO, VASHTI K 729.1 Myalgia And Myositis Unspecified 10/26/2011 GARCIA DO, VASHTI K 780.79 OTHER MALAISE AND FATIGUE 10/26/2011 GARCIA DO, VASHTI K 729.1 Myalgia And Myositis Unspecified 10/26/2011 GARCIA DO, VASHTI K 780.79 OTHER MALAISE AND FATIGUE 10/26/2011 GARCIA DO, VASHTI K 729.1 Myalgia And Myositis Unspecified 10/26/2011 GARCIA DO, VASHTI K 780.79 OTHER MALAISE AND FATIGUE 10/26/2011 GARCIA DO, VASHTI K 729.1 Myalgia And Myositis Unspecified 10/26/2011 GARCIA DO, VASHTI K 780.79 OTHER MALAISE AND FATIGUE 10/26/2011 GARCIA DO, VASHTI K 729.1 Myalgia And Myositis Unspecified 10/26/2011 GARCIA DO, VASHTI K 780.79 OTHER MALAISE AND FATIGUE 10/26/2011 GARCIA DO, VASHTI K 729.1 Myalgia And Myositis Unspecified 10/26/2011 GARCIA DO, VASHTI K 780.79 OTHER MALAISE AND FATIGUE 10/26/2011 GARCIA DO, VASHTI K 729.1 Myalgia And Myositis Unspecified 10/26/2011 GARCIA DO, VASHTI K 780.79 OTHER MALAISE AND FATIGUE 10/26/2011 GARCIA DO, VASHTI K 729.1 Myalgia And Myositis Unspecified 10/26/2011 GARCIA DO, VASHTI K 780.79 OTHER MALAISE AND FATIGUE 10/26/2011 GARCIA DO, VASHTI K 729.1 Myalgia And Myositis Unspecified 10/26/2011 GARCIA DO, VASHTI K 780.79 OTHER MALAISE AND FATIGUE 01/14/2012 FELICITA US MARKETING DIRECTOR, ANETA S 466.0 Acute Bronchitis 01/14/2012 466.0 Acute Bronchitis 01/14/2012 466.0 Acute Bronchitis 01/14/2012 466.0 Acute Bronchitis 01/14/2012 466.0 Acute Bronchitis 01/14/2012 GARCIA DO, VASHTI K 466.0 Acute Bronchitis 01/14/2012 FELICITA US MARKETING DIRECTOR, ANETA S 466.0 Acute Bronchitis 01/14/2012 GARCIA DO, VASHTI K 466.0 Acute Bronchitis 01/14/2012 FELICITA US MARKETING DIRECTOR, ANETA S 466.0 Acute Bronchitis 01/14/2012 BLANCA US MARKETING DIRECTOR, [place] R 466.0 Acute Bronchitis 01/14/2012 BLANCA US MARKETING DIRECTOR, [place]UMBA R 466.0 Acute Bronchitis 01/14/2012 GARCIA DO, VASHTI K 466.0 Acute Bronchitis 01/14/2012 GARCIA DO, VASHTI K 466.0 Acute Bronchitis 01/14/2012 GARCIA DO, VASHTI K 466.0 Acute Bronchitis 01/14/2012 GARCIA DO, VASHTI K 466.0 Acute Bronchitis 01/14/2012 GARCIA DO, VASHTI K 466.0 Acute Bronchitis 01/14/2012 GARCIA DO, VASHTI K 466.0 Acute Bronchitis 01/14/2012 GARCIA DO, VASHTI K 466.0 Acute Bronchitis 01/14/2012 GARCIA DO, VASHTI K 466.0 Acute Bronchitis 01/14/2012 GARCIA DO, VASHTI K 466.0 Acute Bronchitis 01/14/2012 GARCIA DO, VASHTI K 466.0 Acute Bronchitis 01/18/2012 ANETA MIMS APRN S 719.45 PAIN IN JOINT INVOLVING PELVIC REGION AND THIGH 01/18/2012 719.45 Pain In Joint Involving Pelvic Region And Thigh 01/18/2012 719.45 Pain In Joint Involving Pelvic Region And Thigh 01/18/2012 719.45 Pain In Joint Involving Pelvic Region And Thigh 01/18/2012 719.45 Pain In Joint Involving Pelvic Region And Thigh 01/18/2012 LULÚ GARCIA DOA K 719.45 Pain In Joint Involving Pelvic Region And Thigh 01/18/2012 ANETA MIMS APRN 719.45 Pain In Joint Involving Pelvic Region And Thigh 01/18/2012 GARCIA DO VASHTI K 719.45 Pain In Joint Involving Pelvic Region And Thigh 01/18/2012 ANETA MIMS APRN S 719.45 Pain In Joint Involving Pelvic Region And Thigh 01/18/2012 BLANCA SHAIKH [place] R 719.45 Pain In Joint Involving Pelvic Region And Thigh 01/18/2012 BLANCA SHAIKH [place]BA R 719.45 Pain In Joint Involving Pelvic Region And Thigh 01/18/2012 GARCIA DO VASHTI K 719.45 Pain In Joint Involving Pelvic Region And Thigh 01/18/2012 GARCIA DO, VASHTI K 719.45 Pain In Joint Involving Pelvic Region And Thigh 01/18/2012 GARCIA DO, VASHTI K 719.45 Pain In Joint Involving Pelvic Region And Thigh 01/18/2012 GARCIA DO, VASHTI K 719.45 Pain In Joint Involving Pelvic Region And Thigh 01/18/2012 GARCIA DO, VASHTI K 719.45 Pain In Joint Involving Pelvic Region And Thigh 01/18/2012 GARCIA DO VASHTI K 719.45 Pain In Joint Involving Pelvic Region And Thigh 01/18/2012 GARCIA DO, VASHTI K 719.45 Pain In Joint Involving Pelvic Region And Thigh 01/18/2012 GARCIA DO, VASHTI K 719.45 Pain In Joint Involving Pelvic Region And Thigh 01/18/2012 GARCIA DO, VASHTI K 719.45 Pain In Joint Involving Pelvic Region And Thigh 01/18/2012 GARCIA DO, VASHTI K 719.45 PAIN IN JOINT INVOLVING PELVIC REGION AND THIGH 03/03/2012 ANETA MIMS APRN V04.81 FLU DX (3 YRS AND ABOVE, IM) 03/03/2012 V04.81 Flu Dx (3 Yrs And Above, Im) 03/03/2012 V04.81 Flu Dx (3 Yrs And Above, Im) 03/03/2012 V04.81 Flu Dx (3 Yrs And Above, Im) 03/03/2012 V04.81 Flu Dx (3 Yrs And Above, Im) 03/03/2012 GARCIA DO, VASHTI K V04.81 Flu Dx (3 Yrs And Above, Im) 03/03/2012 ANETA MIMS APRN S V04.81 Flu Dx (3 Yrs And Above, Im) 03/03/2012 GARCIA DO, VASHTI K V04.81 Flu Dx (3 Yrs And Above, Im) 03/03/2012 ANETA MIMS APRN V04.81 Flu Dx (3 Yrs And Above, Im) 03/03/2012 BLANCA SHAIKH, [place] R V04.81 Flu Dx (3 Yrs And Above, Im) 03/03/2012 BLANCA JACKSONN, [place]UMBA R V04.81 Flu Dx (3 Yrs And Above, Im) 03/03/2012 GARCIA DO, VASHTI K V04.81 Flu Dx (3 Yrs And Above, Im) 03/03/2012 GARCIA DO, VASHTI K V04.81 Flu Dx (3 Yrs And Above, Im) 03/03/2012 GARCIA DO, VASHTI K V04.81 Flu Dx (3 Yrs And Above, Im) 03/03/2012 GARCIA DO, VASHTI K V04.81 Flu Dx (3 Yrs And Above, Im) 03/03/2012 GARCIA DO, VASHTI K V04.81 Flu Dx (3 Yrs And Above, Im) 03/03/2012 GARCIA DO, VASHTI K V04.81 Flu Dx (3 Yrs And Above, Im) 03/03/2012 GARCIA DO, VASHTI K V04.81 Flu Dx (3 Yrs And Above, Im) 03/03/2012 GARCIA DO, VASHTI K V04.81 Flu Dx (3 Yrs And Above, Im) 03/03/2012 GARCIA DO, VASHTI K V04.81 Flu Dx (3 Yrs And Above, Im) 03/03/2012 GARCIA DO, VASHTI K V04.81 FLU DX (3 YRS AND ABOVE, IM) 05/19/2012 ANETA MIMS APRN 461.9 ACUTE SINUSITIS UNSPECIFIED 05/19/2012 461.9 Acute Sinusitis Unspecified 05/19/2012 461.9 Acute Sinusitis Unspecified 05/19/2012 461.9 Acute Sinusitis Unspecified 05/19/2012 461.9 Acute Sinusitis Unspecified 05/19/2012 GARCIA DO, VASHTI K 461.9 Acute Sinusitis Unspecified 05/19/2012 FELICITA US MARKETING DIRECTOR, ANETA S 461.9 Acute Sinusitis Unspecified 05/19/2012 GARCIA DO, VASHTI K 461.9 Acute Sinusitis Unspecified 05/19/2012 FELICITA US MARKETING DIRECTOR, ANETA S 461.9 Acute Sinusitis Unspecified 05/19/2012 BLANCA US MARKETING DIRECTOR, [place] R 461.9 Acute Sinusitis Unspecified 05/19/2012 BLANCA US MARKETING DIRECTOR, [place] R 461.9 Acute Sinusitis Unspecified 05/19/2012 GARCIA DO, VASHTI K 461.9 Acute Sinusitis Unspecified 05/19/2012 GARCIA DO, VASHTI K 461.9 Acute Sinusitis Unspecified 05/19/2012 GARCIA DO, VASHTI K 461.9 Acute Sinusitis Unspecified 05/19/2012 GARCIA DO, VASHTI K 461.9 Acute Sinusitis Unspecified 05/19/2012 GARCIA DO, VASHTI K 461.9 Acute Sinusitis Unspecified 05/19/2012 GARCIA DO, VASHTI K 461.9 Acute Sinusitis Unspecified 05/19/2012 GARCIA DO, VASHTI K 461.9 Acute Sinusitis Unspecified 05/19/2012 GARCIA DO, VASHTI K 461.9 Acute Sinusitis Unspecified 05/19/2012 GARCIA DO, VASHTI K 461.9 Acute Sinusitis Unspecified 08/22/2012 729.1 MYALGIA AND MYOSITIS UNSPECIFIED 08/22/2012 729.1 MYALGIA AND MYOSITIS UNSPECIFIED 08/22/2012 729.1 MYALGIA AND MYOSITIS UNSPECIFIED 08/22/2012 729.1 MYALGIA AND MYOSITIS UNSPECIFIED 08/22/2012 GARCIA DO, VASHTI K 729.1 MYALGIA AND MYOSITIS UNSPECIFIED 08/22/2012 FELICITA US MARKETING DIRECTOR, ANETA S 729.1 MYALGIA AND MYOSITIS UNSPECIFIED 08/22/2012 GARCIA DO, VASHTI K 729.1 MYALGIA AND MYOSITIS UNSPECIFIED 08/22/2012 FELICITA US MARKETING DIRECTOR, ANETA S 729.1 MYALGIA AND MYOSITIS UNSPECIFIED 08/22/2012 BLANCA US MARKETING DIRECTOR, COLUMBA R 729.1 MYALGIA AND MYOSITIS UNSPECIFIED 08/22/2012 BLANCA US MARKETING DIRECTOR, COLUMBA R 729.1 MYALGIA AND MYOSITIS UNSPECIFIED 08/22/2012 GARCIA DO, VASHTI K 729.1 MYALGIA AND MYOSITIS UNSPECIFIED 08/22/2012 GARCIA DO, VASHTI K 729.1 MYALGIA AND MYOSITIS UNSPECIFIED 08/22/2012 GARCIA DO, VASHTI K 729.1 MYALGIA AND MYOSITIS UNSPECIFIED 08/22/2012 GARCIA DO, VASHTI K 729.1 MYALGIA AND MYOSITIS UNSPECIFIED 08/22/2012 GARCIA DO, VASHTI K 729.1 MYALGIA AND MYOSITIS UNSPECIFIED 08/22/2012 GARCIA DO, VASHTI K 729.1 MYALGIA AND MYOSITIS UNSPECIFIED 08/22/2012 GARCIA DO, VASHTI K 729.1 MYALGIA AND MYOSITIS UNSPECIFIED 08/22/2012 GARCIA DO, VASHTI K 729.1 MYALGIA AND MYOSITIS UNSPECIFIED 08/22/2012 GARCIA DO, VASHTI K 729.1 MYALGIA AND MYOSITIS UNSPECIFIED 09/14/2012 272.1 HYPERTRIGLYCERIDEMIA 09/14/2012 287.5 THROMBOCYTOPENIA 09/14/2012 272.1 HYPERTRIGLYCERIDEMIA 09/14/2012 287.5 THROMBOCYTOPENIA 09/14/2012 272.1 HYPERTRIGLYCERIDEMIA 09/14/2012 287.5 THROMBOCYTOPENIA 09/14/2012 GARCIA DO, VASHTI K 272.1 HYPERTRIGLYCERIDEMIA 09/14/2012 GARCIA DO, VASHTI K 287.5 THROMBOCYTOPENIA 09/14/2012 FELICITA US MARKETING DIRECTOR, ANETA S 272.1 HYPERTRIGLYCERIDEMIA 09/14/2012 FELICITA US MARKETING DIRECTOR, ANETA S 287.5 THROMBOCYTOPENIA 09/14/2012 GARCIA DO, VASHTI K 272.1 HYPERTRIGLYCERIDEMIA 09/14/2012 GARCIA DO, VASHTI K 287.5 THROMBOCYTOPENIA 09/14/2012 FELICITA US MARKETING DIRECTOR, ANETA S 272.1 HYPERTRIGLYCERIDEMIA 09/14/2012 FELICITA US MARKETING DIRECTOR, ANETA S 287.5 THROMBOCYTOPENIA 09/14/2012 BLANCA US MARKETING DIRECTOR, COLUMBA R 272.1 HYPERTRIGLYCERIDEMIA 09/14/2012 BLANCA US MARKETING DIRECTOR, COLUMBA R 287.5 THROMBOCYTOPENIA 09/14/2012 BLANCA US MARKETING DIRECTOR, COLUMBA R 272.1 HYPERTRIGLYCERIDEMIA 09/14/2012 BLANCA US MARKETING DIRECTOR, COLUMBA R 287.5 THROMBOCYTOPENIA 09/14/2012 GARCIA DO, VASHTI K 272.1 HYPERTRIGLYCERIDEMIA 09/14/2012 GARCIA DO, VASHTI K 287.5 THROMBOCYTOPENIA 09/14/2012 GARCIA DO, VASHTI K 272.1 HYPERTRIGLYCERIDEMIA 09/14/2012 GARCIA DO, VASHTI K 287.5 THROMBOCYTOPENIA 09/14/2012 GARCIA DO, VASHTI K 272.1 HYPERTRIGLYCERIDEMIA 09/14/2012 GARCIA DO, VASHTI K 287.5 THROMBOCYTOPENIA 09/14/2012 GARCIA DO, VASHTI K 272.1 HYPERTRIGLYCERIDEMIA 09/14/2012 GARCIA DO, VASHTI K 287.5 THROMBOCYTOPENIA 09/14/2012 GARCIA DO, VASHTI K 272.1 HYPERTRIGLYCERIDEMIA 09/14/2012 GARCIA DO, VASHTI K 287.5 THROMBOCYTOPENIA 09/14/2012 GARCIA DO, VASHTI K 272.1 HYPERTRIGLYCERIDEMIA 09/14/2012 GARCIA DO, VASHTI K 287.5 THROMBOCYTOPENIA 09/14/2012 GARCIA DO, VASHTI K 272.1 HYPERTRIGLYCERIDEMIA 09/14/2012 GARCIA DO, VASHTI K 287.5 THROMBOCYTOPENIA 09/14/2012 GARCIA DO, VASHTI K 272.1 HYPERTRIGLYCERIDEMIA 09/14/2012 GARCIA DO, VASHTI K 287.5 THROMBOCYTOPENIA 09/14/2012 GARCIA DO, VASHTI K 272.1 HYPERTRIGLYCERIDEMIA 09/14/2012 GARCIA DO, VASHTI K 287.5 THROMBOCYTOPENIA 02/04/2013 ROSA MIMS APRNNDA S 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 02/04/2013 GARCIA DO, VASHTI K 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 02/04/2013 ROSA MIMS APRNNDA S 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 02/04/2013 BLANCA JACKSONN, COLUMBA R 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 02/04/2013 BLANCA JACKSONN, COLUMBA R 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 02/04/2013 GARCIA DO, VASHTI K 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 02/04/2013 GARCIA DO, VASHTI K 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 02/04/2013 GARCIA DO, VASHTI K 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 02/04/2013 GARCIA DO, VASHTI K 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 02/04/2013 GARCIA DO, VASHTI K 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 02/04/2013 GARCIA DO, VASHTI K 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 02/04/2013 GARCIA DO, VASHTI K 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 02/04/2013 GARCIA DO, VASHTI K 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 02/04/2013 GARCIA DO, VASHTI K 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 02/12/2013 GARCIA DO, VASHTI K V58.69 LONG-TERM (CURRENT) USE OF OTHER MEDICATIONS 02/12/2013 ANETA MIMS APRN V58.69 LONG-TERM (CURRENT) USE OF OTHER MEDICATIONS 02/12/2013 COLUMBA RIOS APRN R V58.69 LONG-TERM (CURRENT) USE OF OTHER MEDICATIONS 02/12/2013 COLUMBA RIOS APRN R V58.69 LONG-TERM (CURRENT) USE OF OTHER MEDICATIONS 02/12/2013 GARCIA DO, VASHTI K V58.69 LONG-TERM (CURRENT) USE OF OTHER MEDICATIONS 02/12/2013 GARCIA DO, VASHTI K V58.69 LONG-TERM (CURRENT) USE OF OTHER MEDICATIONS 02/12/2013 GARCIA DO, VASHTI K V58.69 LONG-TERM (CURRENT) USE OF OTHER MEDICATIONS 02/12/2013 GARCIA DO, VASHTI K V58.69 LONG-TERM (CURRENT) USE OF OTHER MEDICATIONS 02/12/2013 GARCIA DO, VASHTI K V58.69 LONG-TERM (CURRENT) USE OF OTHER MEDICATIONS 02/12/2013 GARCIA DO, VASHTI K V58.69 LONG-TERM (CURRENT) USE OF OTHER MEDICATIONS 02/12/2013 GARCIA DO, VASHTI K V58.69 LONG-TERM (CURRENT) USE OF OTHER MEDICATIONS 02/12/2013 GARCIA DO, VASHTI K V58.69 LONG-TERM (CURRENT) USE OF OTHER MEDICATIONS 02/12/2013 GARCIA DO, VASHTI K V58.69 LONG-TERM (CURRENT) USE OF OTHER MEDICATIONS 04/16/2013 ANETA MIMS APRN 691.8 ECZEMA 04/16/2013 BLANCA US MARKETING DIRECTOR, COLUMBA R 691.8 ECZEMA 04/16/2013 BLANCA US MARKETING DIRECTOR, COLUMBA R 691.8 ECZEMA 04/16/2013 GARCIA DO, VASHTI K 691.8 ECZEMA 04/16/2013 GARCIA DO, VASHTI K 691.8 ECZEMA 04/16/2013 GARCIA DO, VASHTI K 691.8 ECZEMA 04/16/2013 GARCIA DO, VASHTI K 691.8 ECZEMA 04/16/2013 GARCIA DO, VASHTI K 691.8 ECZEMA 04/16/2013 GARCIA DO, VASHTI K 691.8 ECZEMA 04/16/2013 GARCIA DO, VASHTI K 691.8 ECZEMA 04/16/2013 GARCIA DO, VASHTI K 691.8 ECZEMA 04/16/2013 GARCIA DO, VASHTI K 691.8 ECZEMA 04/23/2013 BLANCA US MARKETING DIRECTOR, COLUMBA R 380.10 INFECTIVE OTITIS EXTERNA UNSPECIFIED 04/23/2013 BLANCA US MARKETING DIRECTOR, COLUMBA R 380.10 INFECTIVE OTITIS EXTERNA UNSPECIFIED 04/23/2013 GARCIA DO, VASHTI K 380.10 INFECTIVE OTITIS EXTERNA UNSPECIFIED 04/23/2013 GARCIA DO, VASHTI K 380.10 INFECTIVE OTITIS EXTERNA UNSPECIFIED 04/23/2013 GARCIA DO, VASHTI K 380.10 INFECTIVE OTITIS EXTERNA UNSPECIFIED 04/23/2013 GARCIA DO, VASHTI K 380.10 INFECTIVE OTITIS EXTERNA UNSPECIFIED 04/23/2013 GARCIA DO, VASHTI K 380.10 INFECTIVE OTITIS EXTERNA UNSPECIFIED 04/23/2013 GARCIA DO, VASHTI K 380.10 INFECTIVE OTITIS EXTERNA UNSPECIFIED 04/23/2013 GARCIA DO, VASHTI K 380.10 INFECTIVE OTITIS EXTERNA UNSPECIFIED 04/23/2013 GARCIA DO, VASHTI K 380.10 INFECTIVE OTITIS EXTERNA UNSPECIFIED 04/23/2013 GARCIA DO, VASHTI K 380.10 INFECTIVE OTITIS EXTERNA UNSPECIFIED 08/11/2013 GARCIA DO, VASHTI K 719.45 PAIN IN JOINT INVOLVING PELVIC REGION AND THIGH 08/11/2013 GARCIA DO, VASHTI K 724.2 LUMBAGO 08/11/2013 GARCIA DO, VASHTI K 780.52 INSOMNIA UNSPECIFIED 08/11/2013 GARCIA DO, VASHTI K 719.45 PAIN IN JOINT INVOLVING PELVIC REGION AND THIGH 08/11/2013 GARCIA DO, VASHTI K 724.2 LUMBAGO 08/11/2013 GARCIA DO, VASHTI K 780.52 INSOMNIA UNSPECIFIED 08/11/2013 GARCIA DO, VASHTI K 719.45 PAIN IN JOINT INVOLVING PELVIC REGION AND THIGH 08/11/2013 GARCIA DO, VASHTI K 724.2 LUMBAGO 08/11/2013 GARCIA DO, VASHTI K 780.52 INSOMNIA UNSPECIFIED 08/11/2013 GARCIA DO, VASHTI K 719.45 PAIN IN JOINT INVOLVING PELVIC REGION AND THIGH 08/11/2013 GARCIA DO, VASHTI K 724.2 LUMBAGO 08/11/2013 GARCIA DO, VASHTI K 780.52 INSOMNIA UNSPECIFIED 08/11/2013 GARCIA DO, VASHTI K 719.45 PAIN IN JOINT INVOLVING PELVIC REGION AND THIGH 08/11/2013 GARCIA DO, VASHTI K 724.2 LUMBAGO 08/11/2013 GARCIA DO, VASHTI K 780.52 INSOMNIA UNSPECIFIED 08/11/2013 GARCIA DO, VASHTI K 719.45 PAIN IN JOINT INVOLVING PELVIC REGION AND THIGH 08/11/2013 GARCIA DO, VASHTI K 724.2 LUMBAGO 08/11/2013 GARCIA DO, VASHTI K 780.52 INSOMNIA UNSPECIFIED 08/11/2013 GARCIA DO, VASHTI K 719.45 PAIN IN JOINT INVOLVING PELVIC REGION AND THIGH 08/11/2013 GARCIA DO, VASHTI K 724.2 LUMBAGO 08/11/2013 GARCIA DO, VASHTI K 780.52 INSOMNIA UNSPECIFIED 08/11/2013 GARCIA DO, VASHTI K 719.45 PAIN IN JOINT INVOLVING PELVIC REGION AND THIGH 08/11/2013 GARCIA DO, VASHTI K 724.2 LUMBAGO 08/11/2013 GARCIA DO, VASHTI K 780.52 INSOMNIA UNSPECIFIED 12/04/2013 GARCIA DO, VASHTI K 461.9 SINUSITIS ACUTE 12/04/2013 GARCIA DO, VASHTI K 729.82 CRAMP OF LIMB 12/04/2013 GARCIA DO, VASHTI K 461.9 SINUSITIS ACUTE 12/04/2013 GARCIA DO, VASHTI K 729.82 CRAMP OF LIMB 12/04/2013 GARCIA DO, VASHTI K 461.9 SINUSITIS ACUTE 12/04/2013 GARCIA DO, VASHTI K 729.82 CRAMP OF LIMB 12/04/2013 GARCIA DO, VASHTI K 461.9 SINUSITIS ACUTE 12/04/2013 GARCIA DO, VASHTI K 729.82 CRAMP OF LIMB 12/04/2013 GARCIA VASHTI BADILLO K 461.9 SINUSITIS ACUTE 12/04/2013 GARCIA DO, VASHTI K 729.82 CRAMP OF LIMB 12/04/2013 GARCIA DO, VASHTI K 461.9 SINUSITIS ACUTE 12/04/2013 VASHTI GARCIA DO K 729.82 CRAMP OF LIMB 03/02/2014 GARCIA DOLULÚA K V04.81 FLU SHOT 03/02/2014 GARCIA DO, VASHTI K V04.81 FLU SHOT 03/02/2014 GARCIA DO, VASHTI K V04.81 FLU SHOT 03/02/2014 GARCIA DOLULÚA K V04.81 FLU SHOT 04/16/2014 LULÚ GARCIA DOA K V18.0 FAMILY HISTORY OF DIABETES MELLITUS 04/16/2014 GARCIA VASHTI K V18.0 FAMILY HISTORY OF DIABETES MELLITUS 04/16/2014 GARCIA VASHTI K V18.0 FAMILY HISTORY OF DIABETES MELLITUS 04/28/2014 METCALF PA, KAYLEE M Ot 401.9 04/28/2014 METCALF PA, KAYLEE M Ot 401.9 05/11/2014 METCALF PA, KAYLEE M Ot 401.9 05/21/2014 METCALF PA, KAYLEE M Ot 401.9 07/30/2014 RADHA BADILLO VASHTI K 719.41 PAIN IN JOINT INVOLVING SHOULDER REGION 08/04/2014 METCALF PA, KAYLEE M Ot 401.9 08/09/2014 METCALF PA, KAYLEE M Ot 401.9 08/30/2014 METCALF PA, KAYLEE M Ot 719.41 09/24/2014 METCALF PA, KAYLEE M Ot 401.9 11/02/2014 METCALF PA, KAYLEE M Ot 719.41 11/02/2014 METCALF PA, KAYLEE M Ot 401.9 11/16/2014 METCALF PA, KAYLEE M Ot 401.9 11/16/2014 METCALF PA, KAYLEE M Ot 719.41 01/03/2015 METCALF PA, KAYLEE M Ot 401.9 01/03/2015 METCALF PA, KAYLEE M Ot 719.41 04/12/2015 METCALF PA, KAYLEE M Ot 401.9 04/12/2015 METCALF PA, KAYLEE M Ot 719.41 12/14/2015 METCALF PA, KAYLEE M Ot 401.9 HYPERTENSION NOS 12/14/2015 METCALF PA, KAYLEE M Ot 719.41 JOINT PAIN-SHLDER 12/26/2015 METCALF PA, KAYLEE M Ot 401.9 HYPERTENSION NOS 12/26/2015 METCALF PA, KAYLEE M Ot 719.41 JOINT PAIN-SHLDER 01/20/2016 METCALF PA, KAYLEE M Ot 401.9 HYPERTENSION NOS 01/20/2016 METCALF PA, KAYLEE M Ot 719.41 JOINT PAIN-SHLDER 07/16/2017 METCALF PA, KAYLEE M Ot 401.9 HYPERTENSION NOS 07/16/2017 METCALF PA, KAYLEE M Ot 719.41 JOINT PAIN-SHLDER 04/22/2018 METCALF PA, KAYLEE M Ot 401.9 HYPERTENSION NOS 04/22/2018 METCALF PA, KAYLEE M Ot 719.41 JOINT PAIN-SHLDER 05/01/2018 METCALF PA, KAYLEE M Ot 401.9 HYPERTENSION NOS 05/01/2018 METCALF PA, KAYLEE M Ot 719.41 JOINT PAIN-SHLDER 05/01/2018 AUGUSTA WILDER, RITA Turner (DDU) Ot Z02.71 ENCOUNTER FOR DISABILITY DETERMINATION 05/05/2018 HARVEY TORRES US MARKETING DIRECTOR Ot M85.88 OTH DISRD OF BONE DENSITY AND STRUCTURE, 05/05/2018 HARVEY TORRES US MARKETING DIRECTOR Ot Z12.31 ENCNTR SCREEN MAMMOGRAM FOR MALIGNANT NE 05/05/2018 HARVEY TORRES US MARKETING DIRECTOR Ot Z13.820 ENCOUNTER FOR SCREENING FOR OSTEOPOROSIS 05/05/2018 HARVEY TORRES US MARKETING DIRECTOR Ot Z78.0 ASYMPTOMATIC MENOPAUSAL STATE 05/07/2018 HARVEY TORRES US MARKETING DIRECTOR Ot M85.88 OTH DISRD OF BONE DENSITY AND STRUCTURE, 05/07/2018 HARVEY TORRES US MARKETING DIRECTOR Ot Z12.31 ENCNTR SCREEN MAMMOGRAM FOR MALIGNANT NE 05/07/2018 HARVEY TORRES US MARKETING DIRECTOR Ot Z13.820 ENCOUNTER FOR SCREENING FOR OSTEOPOROSIS 05/07/2018 HARVEY TORRES US MARKETING DIRECTOR Ot Z78.0 ASYMPTOMATIC MENOPAUSAL STATE 05/23/2018 HARVEY TORRES US MARKETING DIRECTOR Ot M85.88 OTH DISRD OF BONE DENSITY AND STRUCTURE, 05/23/2018 HARVEY TORRES US MARKETING DIRECTOR Ot Z12.31 ENCNTR SCREEN MAMMOGRAM FOR MALIGNANT NE 05/23/2018 KING HARVEY D US MARKETING DIRECTOR Ot Z13.820 ENCOUNTER FOR SCREENING FOR OSTEOPOROSIS 05/23/2018 MELISSAJANELLERIDGE Perkins US MARKETING DIRECTOR Ot Z78.0 ASYMPTOMATIC MENOPAUSAL STATE Procedures Code [place] [address] THERAPUTIC INJ SQ/IM 05/19/2012 J0696 ROCEPHIN INJ 05/19/2012 26805 ROUTINE VENIPUNCTURE 09/12/2012 78084 ESR/SED RATE 09/12/2012 07338 CBC 09/12/2012 43870 CMP 09/12/2012 16238 LIPID PANEL 09/12/2012 [id number] GFR CALC (RESULT ONLY) 09/12/2012 83163 CRP 09/12/2012 96672 RA FACTOR 09/13/2012 ANAANA TROY ANALYZER (SCREEN) 09/13/2012 04503 ROUTINE VENIPUNCTURE 09/22/2012 91397 PERIPHERIAL BLOOD SMEAR 09/22/2012 56289 A1C (RML) 09/22/2012 31876 PT/INR 09/22/2012 10131 PTT (THROMBOPLASTIN TIME, PARTIAL) 09/22/2012 86784 ROUTINE VENIPUNCTURE 10/02/2012 IRGROUP IRON GROUP (Iron,TIBC, Ferritin) 10/02/2012 55878 ROUTINE VENIPUNCTURE 02/12/2013 09433 CBC 02/12/2013 74034 CMP 02/12/2013 [id number] GFR CALC (RESULT ONLY) 02/12/2013 85551 ROUTINE VENIPUNCTURE 05/29/2013 07920 CMP 05/29/2013 [id number] GFR CALC (RESULT ONLY) 05/29/2013 04776 UA W/MICROSCOPY 09/17/2013 26622 UA W/ CULTURE IF INDICATED 09/17/2013 44553 US RENAL ARTERY DOPPLER 04/16/2014 02941 A1C (IN-HOUSE) 04/16/2014 2290103 GFR CALC (RESULT ONLY) 04/16/2014 30818 CMP 04/16/2014 84319 TSH 04/16/2014 53141 XRAY SHOULDER RIGHT COMP 2 VIEWS 07/30/2014 49297 MRI EXTREMITY JOINT, UPPER RIGHT, W/O CONTRAST 07/30/2014 ORTHOPEDI NANCY PISANO 07/30/2014 Results Test Result Range CBC With Differential/Platelet - 01/31/16 14:39 WBC 8.5 x10E3/uL 3.4-10.8 RBC 4.32 x10E6/uL 3.77-5.28 Hemoglobin 13.9 g/dL 11.1-15.9 Hematocrit 41.9 % 34.0-46.6 MCV 97 fL 79-97 MCH 32.2 pg 26.6-33.0 MCHC 33.2 g/dL 31.5-35.7 RDW 14.0 % 12.3-15.4 Platelets 172 x10E3/uL 150-379 Neutrophils 67 % Lymphs 24 % Monocytes 5 % Eos 4 % Basos 0 % Neutrophils (Absolute) 5.7 x10E3/uL 1.4-7.0 Lymphs (Absolute) 2.0 x10E3/uL 0.7-3.1 Monocytes(Absolute) 0.4 x10E3/uL 0.1-0.9 Eos (Absolute) 0.4 x10E3/uL 0.0-0.4 Baso (Absolute) 0.0 x10E3/uL 0.0-0.2 Immature Granulocytes 0 % Immature Grans (Abs) 0.0 x10E3/uL 0.0-0.1 Comp. Metabolic Panel (14) - 01/31/16 14:39 Glucose, Serum 117 mg/dL 65-99 BUN 10 mg/dL 8-27 Creatinine, Serum 0.73 mg/dL 0.57-1.00 eGFR If NonAfricn Am 89 mL/min/1.73 >59 eGFR If Africn Am 102 mL/min/1.73 >59 BUN/Creatinine Ratio 14 11-26 Sodium, Serum 140 mmol/L 134-144 Potassium, Serum 3.7 mmol/L 3.5-5.2 Chloride, Serum 102 mmol/L 97-108 Carbon Dioxide, Total 22 mmol/L 18-29 Calcium, Serum 9.5 mg/dL 8.7-10.3 Protein, Total, Serum 7.1 g/dL 6.0-8.5 Albumin, Serum 4.7 g/dL 3.6-4.8 Globulin, Total 2.4 g/dL 1.5-4.5 A/G Ratio 2.0 1.1-2.5 Bilirubin, Total 0.4 mg/dL 0.0-1.2 Alkaline Phosphatase, S 65 IU/L 39-117 AST (SGOT) 18 IU/L 0-40 ALT (SGPT) 19 IU/L 0-32 CBC With Differential/Platelet - 06/04/16 09:16 WBC 8.1 x10E3/uL 3.4-10.8 RBC 4.36 x10E6/uL 3.77-5.28 Hemoglobin 13.8 g/dL 11.1-15.9 Hematocrit 40.5 % 34.0-46.6 MCV 93 fL 79-97 MCH 31.7 pg 26.6-33.0 MCHC 34.1 g/dL 31.5-35.7 RDW 13.4 % 12.3-15.4 Platelets 229 x10E3/uL 150-379 Neutrophils 61 % Lymphs 29 % Monocytes 6 % Eos 4 % Basos 0 % Neutrophils (Absolute) 4.9 x10E3/uL 1.4-7.0 Lymphs (Absolute) 2.4 x10E3/uL 0.7-3.1 Monocytes(Absolute) 0.5 x10E3/uL 0.1-0.9 Eos (Absolute) 0.3 x10E3/uL 0.0-0.4 Baso (Absolute) 0.0 x10E3/uL 0.0-0.2 Immature Granulocytes 0 % Immature Grans (Abs) 0.0 x10E3/uL 0.0-0.1 Comp. Metabolic Panel (14) - 06/04/16 09:16 Glucose, Serum 90 mg/dL 65-99 BUN 12 mg/dL 8-27 Creatinine, Serum 0.68 mg/dL 0.57-1.00 eGFR If NonAfricn Am 93 mL/min/1.73 >59 eGFR If Africn Am 108 mL/min/1.73 >59 BUN/Creatinine Ratio 18 11-26 Sodium, Serum 140 mmol/L 134-144 Potassium, Serum 4.6 mmol/L 3.5-5.2 Chloride, Serum 101 mmol/L 96-106 Carbon Dioxide, Total 23 mmol/L 18-29 Calcium, Serum 9.6 mg/dL 8.7-10.3 Protein, Total, Serum 6.7 g/dL 6.0-8.5 Albumin, Serum 4.7 g/dL 3.6-4.8 Globulin, Total 2.0 g/dL 1.5-4.5 A/G Ratio 2.4 1.1-2.5 Bilirubin, Total 0.6 mg/dL 0.0-1.2 Alkaline Phosphatase, S 63 IU/L 39-117 AST (SGOT) 21 IU/L 0-40 ALT (SGPT) 16 IU/L 0-32 Lipid Panel - 06/04/16 09:16 Cholesterol, Total 150 mg/dL 100-199 Triglycerides 138 mg/dL 0-149 HDL Cholesterol 31 mg/dL >39 VLDL Cholesterol Chung 28 mg/dL 5-40 LDL Cholesterol Calc 91 mg/dL 0-99 Urine Culture, Routine - 12/27/16 12:08 Urine Culture, Routine Note CMP - 03/26/17 10:16 GLUCOSE 86 mg/dL 65-99 UREA NITROGEN (BUN) 16 mg/dL 7-25 CREATININE 0.67 mg/dL 0.50-0.99 eGFR NON-AFR. BAHRAINI 93 mL/min/1.73m2 > OR=60 eGFR 108 mL/min/1.73m2 > OR=60 BUN/CREATININE RATIO NOT APPLICABLE (calc) 6-22 SODIUM 138 mmol/L 135-146 POTASSIUM 4.2 mmol/L 3.5-5.3 CHLORIDE 103 mmol/L 98-110 CARBON DIOXIDE 26 mmol/L 20-31 CALCIUM 9.7 mg/dL 8.6-10.4 PROTEIN, TOTAL 7.2 g/dL 6.1-8.1 ALBUMIN 4.8 g/dL 3.6-5.1 GLOBULIN 2.4 g/dL (calc) 1.9-3.7 ALBUMIN/GLOBULIN RATIO 2.0 (calc) 1.0-2.5 BILIRUBIN, TOTAL 0.6 mg/dL 0.2-1.2 ALKALINE PHOSPHATASE 63 U/L 33-130 AST 18 U/L 10-35 ALT 12 U/L 6-29 CMP - 06/05/17 08:56 GLUCOSE 85 mg/dL 65-99 UREA NITROGEN (BUN) 13 mg/dL 7-25 CREATININE 0.76 mg/dL 0.50-0.99 eGFR NON-AFR. BAHRAINI 83 mL/min/1.73m2 > OR=60 eGFR 96 mL/min/1.73m2 > OR=60 BUN/CREATININE RATIO NOT APPLICABLE (calc) 6-22 SODIUM 138 mmol/L 135-146 POTASSIUM 4.0 mmol/L 3.5-5.3 CHLORIDE 104 mmol/L 98-110 CARBON DIOXIDE 25 mmol/L 20-31 CALCIUM 9.3 mg/dL 8.6-10.4 PROTEIN, TOTAL 6.8 g/dL 6.1-8.1 ALBUMIN 4.4 g/dL 3.6-5.1 GLOBULIN 2.4 g/dL (calc) 1.9-3.7 ALBUMIN/GLOBULIN RATIO 1.8 (calc) 1.0-2.5 BILIRUBIN, TOTAL 0.7 mg/dL 0.2-1.2 ALKALINE PHOSPHATASE 68 U/L 33-130 AST 17 U/L 10-35 ALT 10 U/L 6-29 A1C - 10/21/17 08:30 HEMOGLOBIN A1c 5.1 % of total Hgb <5.7 LIPID PANEL - 12/02/17 08:35 CHOLESTEROL, TOTAL 117 mg/dL <200 HDL CHOLESTEROL 15 mg/dL >50 TRIGLYCERIDES 497 mg/dL <150 LDL-CHOLESTEROL mg/dL (calc) NRG CHOL/HDLC RATIO 7.8 (calc) <5.0 NON HDL CHOLESTEROL 102 mg/dL (calc) <130 Encounters ACCT No. Visit Date/Time Discharge Status Pt. Type Provider Facility Loc./Unit Complaint [id number] 07/30/2014 15:08:00 07/30/2014 23:59:59 CLS Outpatient GARCIA DO VASHTI K [id number] 05/17/2014 15:57:00 05/17/2014 23:59:59 CLS Outpatient RADHA BADILLO VASHTI K [id number] 04/16/2014 13:15:00 04/16/2014 23:59:59 CLS Outpatient RADHA BADILLO VASHTI K [id number] 03/02/2014 14:50:00 03/02/2014 23:59:59 CLS Outpatient GARCIA DOVASHTI [id number] 01/05/2014 15:34:00 01/05/2014 23:59:59 CLS Outpatient GARCIA DOVASHTI [id number] 12/04/2013 08:45:00 12/04/2013 23:59:59 CLS Outpatient RADHA BADILLOVASHTI [id number] 09/17/2013 12:00:00 09/17/2013 23:59:59 CLS Outpatient RADHA BADILLOVASHTI [id number] 08/11/2013 15:22:00 08/11/2013 23:59:59 CLS Outpatient RADHA BADILLOVASHTI [id number] 05/29/2013 10:15:00 05/29/2013 23:59:59 CLS Outpatient VASHTI GARCIA DO Katherin [id number] 04/30/2013 13:34:00 04/30/2013 23:59:59 CLS Outpatient COLUMBA RIOS APRN Pete [id number] 04/23/2013 10:20:00 04/23/2013 23:59:59 CLS Outpatient COLUMBA RIOS APRN Pete [id number] 04/16/2013 13:39:00 04/16/2013 23:59:59 CLS Outpatient FELICITA US MARKETING DIRECTORANETA Mcdonough [id number] 02/12/2013 08:48:00 02/12/2013 23:59:59 CLS Outpatient VASHTI GARCIA DO Katherin [id number] 02/04/2013 15:05:00 02/04/2013 23:59:59 CLS Outpatient FELICITA US MARKETING DIRECTORANETA Mcdonough [id number] 11/10/2012 16:24:00 11/10/2012 23:59:59 CLS Outpatient VASHTI GARCIA DO Katherin [id number] 05/19/2012 09:03:00 05/19/2012 23:59:59 CLS Outpatient FELICITA JACKSONNROSAANETA Jorge [id number] 03/03/2012 16:14:00 03/03/2012 23:59:59 CLS Outpatient VASHTI GARCIA DO Katherin [id number] 10/02/2012 09:31:00 Document Registration [id number] 09/22/2012 10:27:00 Document Registration [id number] 09/12/2012 08:27:00 Document Registration [id number] 08/22/2012 15:50:00 Document Registration [id number] 04/11/2018 12:20:00 04/11/2018 23:59:59 CLS Outpatient RIDGE ARZATE APRNWNYA Madiha [facility] [place] [id number] 12/02/2017 08:30:00 Document Registration [id number] 10/21/2017 08:40:00 Document Registration [id number] 06/05/2017 08:00:00 Document Registration [id number] 03/26/2017 09:00:00 Document Registration [id number] 06/05/2016 08:40:00 Document Registration [id number] 05/01/2018 10:33:00 05/01/2018 23:59:59 CLS Outpatient HARVEY TORRES APRN [facility] RAD SCREENING [id number] 04/11/2018 15:03:00 04/11/2018 23:59:59 CLS Preadmit MELISSA HARVEY Perkins APRN [facility] RAD SCREENING FOR OSTEOPOROSIS [id number] 04/12/2015 10:04:00 04/12/2015 23:59:59 CLS Outpatient AUGUSTA WILDER, RITA Turner (DDU) [facility] RAD DDS [id number] 08/09/2014 14:48:00 08/09/2014 23:59:59 CLS Outpatient KAYLEE MADSEN [facility] RAD RT SHOULDER PAIN [id number] 04/23/2014 08:29:00 04/23/2014 23:59:59 CLS Outpatient KAYLEE MADSEN [facility] RAD RESISTENT HTN [id number] 09/19/2018 20:22:00 ACT Emergency KAYLEE BARRON MD Via [facility] ER UNABLE TO SEE OUT OF R EYE [id number] 08/09/2014 14:48:49 ACT Document Registration [id number] 12/29/2016 03:10:00 Document Registration [id number] 02/01/2016 08:42:00 Document Registration
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
[2018-09-19 21:09] VITALS: BP 186/98
== END 2018-09-19 21:07 | disposition home or self-care (01) ==
LOC: EDUNIT# 20:20 → ER 20:22
DX: S05.8X2A Other injuries of left eye and orbit, initial encounter (principal); H21.02 Hyphema, left eye; I10 Essential (primary) hypertension; E11.9 Type 2 diabetes mellitus without complications; F17.210 Nicotine dependence, cigarettes, uncomplicated; Z90.710 Acquired absence of both cervix and uterus; Z96.1 Presence of intraocular lens; X95.8XXA Assault by other firearm discharge, initial encounter
CPT/HCPCS: 99282

== ENCOUNTER 2018-12-18 05:49 | Outpatient (CLI) | payer MEDICARE, OTHER ==
[~2018-12-18] VITALS: Ht 152.4 cm; Wt 63.0 kg
[2018-12-18] MEDS ORDERED: ATEN25TA PO (13:24)
[2018-12-18] MEDS ORDERED: AMLO2.5T4 PO (13:26)
[2018-12-18] MEDS ORDERED: METF-397 PO (13:26)
[2018-12-18] MEDS ORDERED: ATOR10TA66 PO (13:26)
[2018-12-18] MEDS ORDERED: LOSA25TA41 PO (13:26)
== END 2018-12-18 13:29 | disposition home or self-care (01) ==
LOC: PREOP 05:49
PROVIDERS: ATTEND Specialist
DX: Z01.818 Encounter for other preprocedural examination (principal)

== ENCOUNTER 2018-12-19 08:52 | Day surgery (SDC) | payer MEDICARE, OTHER ==
[~2018-12-19] VITALS: Ht 152.4 cm; Wt 63.0 kg
[~2018-12-19 08:52] MED LIST: AMLO2.5T4 PO; ATEN25TA PO; ATOR10TA66 PO; LOSA25TA41 PO; METF-397 PO
[2018-12-19 09:00] VITALS: BP 167/81
[2018-12-19] MEDS: TETRACAINE 0.5% OPHTH SOLN 4 ML BTL (SINGLE DOSE ONLY) OU PRN ×4 (09:12→09:26)
[2018-12-19] MEDS: PHENYLEPHRINE 10% OPHTH (NEO-SYN) 5 ML BTL OU PRN ×3 (09:16→09:26)
[2018-12-19] MEDS: TROPICAMIDE 1% OPH SOLN (MYDRIACYL) 15 ML BTL OU PRN ×3 (09:17→09:26)
--- NOTE | 2018-12-19 09:56 | Ophthalmologist Pre-Op Note ---
Pre-Operative Progress Note H&P Reviewed The H&P was reviewed, patient examined and no changes noted. Date H&P Reviewed: Dec 19, 2018 Time H&P Reviewed: 09:32 Pre-Op Dx Secondary Cataract, Bilateral Eyes LEONEL HAZEL MD Dec 19, 2018 09:56
--- NOTE | 2018-12-19 09:56 | Ophthalmology Operative Report ---
YAG Capsulotomy PREOPERATIVE DIAGNOSIS: Secondary Cataract Bilateral POSTOPERATIVE DIAGNOSIS: Secondary Cataract Bilateral PROCEDURE: YAG Capsulotomy, Bilateral SURGEON: Moi Hazel ANESTHESIA: Topical anesthesia COMPLICATIONS: None ESTIMATED BLOOD LOSS: Minimal DESCRIPTION OF PROCEDURE: After proper informed consent was obtained, the patient's, a 63 female , received one drop of Tropicamide and one drop of Tetracaine in each eye. The patient was then placed at the YAG laser and using a power of [3.2 ] millijoules and bursts [ 12] right eye and [ 14] left eye were used to fashion a central capsulotomy. The patient tolerated the procedure well without complications. MOI HAZEL MD Dec 19, 2018 09:56
== END 2018-12-19 09:43 | disposition home or self-care (01) ==
LOC: SDC 08:52
PROVIDERS: ATTEND Specialist
DX: H26.493 Other secondary cataract, bilateral (principal); F17.200 Nicotine dependence, unspecified, uncomplicated; Z88.0 Allergy status to penicillin; Z88.2 Allergy status to sulfonamides; Z88.7 Allergy status to serum and vaccine; Z79.84 Long term (current) use of oral hypoglycemic drugs; Z79.899 Other long term (current) drug therapy; Z83.3 Family history of diabetes mellitus; Z80.9 Family history of malignant neoplasm, unspecified; Z90.710 Acquired absence of both cervix and uterus

== ENCOUNTER → 2019-05-08 | Outpatient (CLI) | payer MEDICARE, OTHER ==
--- NOTE | 2019-05-08 10:20 | Diagnostic Imaging Report ---
INDICATION: Routine screening. COMPARISON is made with prior mammogram from 05/01/2018. 2-D and 3-D bilateral screening mammography was performed with CAD. Scattered fibroglandular densities are identified bilaterally. There are scattered benign calcifications. Overall parenchymal pattern appears to be stable. No dominant mass or malignant appearing microcalcifications are seen. Axillae are unremarkable. IMPRESSION: BI-RADS Category 2 No mammographic features suspicious for malignancy are identified. ACR BI-RADS Category 2: Benign findings. Result letter will be mailed to the patient. Note: At least 10% of breast cancer is not imaged by mammography. Dictated by: Dictated on workstation # [id number]
== END ==
LOC: RAD 08:05
PROVIDERS: ATTEND Nurse Practitioner Family
DX: Z12.31 Encounter for screening mammogram for malignant neoplasm of breast (principal)
CPT/HCPCS: 77067

== ENCOUNTER → 2019-06-01 | Outpatient (CLI) | payer MEDICARE, OTHER ==
[~2019-06-01] VITALS: Ht 155 cm; Wt 65.0 kg
[~2019-06-01] MED LIST changes: +CATHETER FLUSH 10 ML SYR IV PRN; +REGADENOSON 0.4 MG/5 ML SYR (LEXISCAN) IV ONE
[2019-06-01 09:21] VITALS: BP 149/80
--- NOTE | 2019-06-01 17:24 | STRESS TEST ---
DATE OF SERVICE: 06/01/2019 LEXISCAN MYOVIEW STRESS TEST REPORT Baseline heart rate is 72. Baseline blood pressure 176/90. Baseline EKG is sinus rhythm with no ischemic changes. In summary, the patient was injected with 10.96 mCi of technetium-99 Myoview and the resting images were obtained. Then, the patient received 0.4 mg of Lexiscan followed by 30.5 mCi of technetium-99 Myoview. Throughout the test, there were no EKG changes. The resting and stress images were reviewed and compared in the short axis, horizontal long axis, and vertical long axis views. Review of the images showed breast attenuation with no ischemia or infarction on SPECT images. SSS is 1, SDS 1, TID value 1.02. On the gated images, the left ventricle appeared to be normal size with normal contractility. Calculated ejection fraction 69%. CONCLUSION: 1. The patient tolerated Lexiscan well. 2. No ischemia or infarction on SPECT images. 3. Normal left ventricular size with normal contractility. Calculated ejection fraction 69%. Job ID: [id number] DocumentID: [id number] Dictated Date: 06/01/2019 16:29:02 Regional Sales Executive Date: 06/01/2019 17:24:16 Dictated By: JOSE AKERS MD
== END ==
LOC: CARD 07:31
PROVIDERS: ATTEND Internal Medicine Cardiovascular Disease
DX: I10 Essential (primary) hypertension (principal); E11.9 Type 2 diabetes mellitus without complications; E78.1 Pure hyperglyceridemia
CPT/HCPCS: 78452; 93017

== ENCOUNTER → 2019-06-08 | Outpatient (CLI) | payer MEDICARE, OTHER ==
[~2019-06-08] MED LIST changes: -CATHETER FLUSH 10 ML SYR IV PRN; -REGADENOSON 0.4 MG/5 ML SYR (LEXISCAN) IV ONE
== END ==
LOC: CARD 14:51
PROVIDERS: ATTEND Internal Medicine Cardiovascular Disease
DX: I10 Essential (primary) hypertension (principal); E11.9 Type 2 diabetes mellitus without complications; E78.1 Pure hyperglyceridemia; I35.0 Nonrheumatic aortic (valve) stenosis
CPT/HCPCS: 93306

== ENCOUNTER → 2021-04-04 | Outpatient (CLI) | payer MEDICARE, OTHER ==
[2021-04-04 15:50] LABS: ALBUMIN 4.5 GM/DL (3.2-4.5); HEMATOCRIT 40 % (35-52); HEMOGLOBIN 13.8 g/dL (11.5-16.0); MEAN CORPUSCULAR HEMOGLOBIN 32 pg (25-34); MEAN CORPUSCULAR HGB CONC 35 g/dL (32-36); MEAN CORPUSCULAR VOLUME 91 fL (80-99); MEAN PLATELET VOLUME 9.9 fL (9.0-12.2); PLATELET COUNT 135 10^3/uL (130-400); POTASSIUM 3.6 MMOL/L (3.6-5.0); WHITE BLOOD COUNT 8.8 10^3/uL (4.3-11.0)
[2021-04-04 15:51] LABS: CALCIUM 9.5 MG/DL (8.5-10.1)
[2021-04-04 15:53] LABS: TOTAL PROTEIN 7.3 GM/DL (6.4-8.2)
[2021-04-04 15:56] LABS: CREATININE SERUM 0.79 MG/DL (0.60-1.30)
== END ==
LOC: LAB 15:17
PROVIDERS: ATTEND Internal Medicine Cardiovascular Disease
DX: I10 Essential (primary) hypertension (principal)
CPT/HCPCS: 36415; 80053; 80061; 83036; 84443; 85027

== ENCOUNTER → 2021-04-14 | Outpatient (CLI) | payer MEDICARE, OTHER ==
[~2021-04-14] MED LIST changes: +CATHETER FLUSH 10 ML SYR IV PRN; +HOLD METFORMIN - RECEIVED CONTRAST 20 ML VIAL IV SCH; +IOHEXOL 350 MG/ML 100 ML (OMNIPAQUE 350) VIAL IV ONE; +NS 100 ML (IVPB) BAG IV ONE
--- NOTE | 2021-04-14 12:35 | Diagnostic Imaging Report ---
EXAM: CT ANGIO NECK W INDICATION: Carotid artery stenosis. COMPARISON: None. FINDINGS: CTA demonstrates a left common carotid originating from the innominate. Atherosclerotic disease results in approximately 70-89% narrowing of the left internal carotid artery origin. There is less than 50% narrowing of the right internal carotid artery origin. Visualized elem of Jacobs is intact. Vertebral arteries are widely patent. Visualized intracranial contents demonstrate no acute findings on this postcontrast exam. Paranasal sinuses and mastoids are clear. Moderate spondylotic changes in the cervical spine are greatest at C5-C7. Lung apices are clear. Subcentimeter nonspecific nodule in the left thyroid should not require additional evaluation. IMPRESSION: 1. High-grade narrowing of the left internal carotid artery origin due to atherosclerotic disease of approximately 70-89%. 2. Less than 50% narrowing of the right internal carotid artery origin. Dictated by: Dictated on workstation # [id number]
== END ==
LOC: RAD 08:55
PROVIDERS: ATTEND Physician Assistant
DX: I65.23 Occlusion and stenosis of bilateral carotid arteries (principal)
CPT/HCPCS: 70498

== ENCOUNTER → 2021-10-11 | Outpatient (CLI) | payer MEDICARE, OTHER ==
[2021-10-11 10:50] LABS: CREATININE SERUM 0.8 MG/DL (0.60-1.30)
--- NOTE | 2021-10-11 15:35 | Diagnostic Imaging Report ---
INDICATION: Carotid stenosis. TECHNIQUE: Contiguous noncontrast images were obtained from the skull base through the vertex. After intravenous contrast administration, helical CT angiography of the neck was performed. Source data was reformatted into 3D MIP projections. Delayed post contrast acquisition was also obtained. Auto Exposure Controls were utilized during the CT exam to meet ALARA standards for radiation dose reduction. COMPARISON: 04/14/2021. FINDINGS: Precontrast brain CT demonstrates no extra-axial fluid collection. No intracranial hemorrhage. No intracranial mass or mass effect. No midline shift. The ventricles are normal in size and position. There are no focal parenchymal abnormalities in the brain. Calvarial windows are unremarkable. CTA NECK FINDINGS: Aortic arch shows some abscess chronic plaquing but no evidence of stenosis or great vessel occlusion. The common carotid arteries are patent and without stenosis. There is eccentric calcified plaquing in the carotid bifurcations on both sides. On the right side, the degree of plaquing at the internal carotid origin is less than 20%. On the left side, there is a high-grade stenosis of the internal carotid origin, with diameter stenosis of approximately 80%, similar to the previous study. The vertebral arteries on both sides are patent and without significant stenosis. The distal internal carotid arteries and external carotids are patent. CTA HEAD FINDINGS: The distal vertebral arteries and basilar artery and posterior cerebral arteries are patent. The distal internal carotid arteries show some eccentric plaquing of the carotid siphons without significant stenosis. The anterior and middle cerebral arteries and their branches appear patent and without stenosis or aneurysmal disease. The dural venous sinuses appear patent. There is no abnormal enhancing intracranial lesion. IMPRESSION: 1. CTA neck demonstrates plaquing in the carotid bifurcations on both sides, left worse than right with about 80% diameter stenosis of the left internal carotid proximally and mild narrowing of the right internal carotid. Both vertebrals are patent. 2. CTA head demonstrates no major vessel stenosis or occlusion or aneurysmal disease. Dictated by: Dictated on workstation # [id number]
== END ==
LOC: RAD 10:21
PROVIDERS: ATTEND Physician Assistant
DX: I65.23 Occlusion and stenosis of bilateral carotid arteries (principal)
CPT/HCPCS: 36415; 70496; 70498; 82565; 84520

== ENCOUNTER → 2021-11-29 | Outpatient (CLI) | payer MEDICARE, OTHER ==
[~2021-11-29] MED LIST changes: -CATHETER FLUSH 10 ML SYR IV PRN; -HOLD METFORMIN - RECEIVED CONTRAST 20 ML VIAL IV SCH; -IOHEXOL 350 MG/ML 100 ML (OMNIPAQUE 350) VIAL IV ONE; -NS 100 ML (IVPB) BAG IV ONE
[2021-11-29 09:25] LABS: BILIRUBIN,URINE NEGATIVE (NEGATIVE); CLARITY,URINE SL CLOUDY; COLOR,URINE YELLOW; GLUCOSE, URINE (UA) NEGATIVE (NEGATIVE); KETONES,URINE NEGATIVE (NEGATIVE); LEUKOCYTE ESTERASE ,URINE NEGATIVE (NEGATIVE); NITRITE,URINE NEGATIVE (NEGATIVE); PROTEIN,URINE NEGATIVE (NEGATIVE)
[2021-11-29 09:35] LABS: BACTERIA,URINE FEW /HPF; YEAST,URINE FEW /HPF
== END ==
LOC: LAB 09:03
PROVIDERS: ATTEND Thoracic Surgery (Cardiothoracic Vascular Surgery)
DX: Z01.812 Encounter for preprocedural laboratory examination (principal); N39.0 Urinary tract infection, site not specified; I65.23 Occlusion and stenosis of bilateral carotid arteries
CPT/HCPCS: 81000

== ENCOUNTER → 2021-12-04 | Outpatient (CLI) | payer MEDICARE, OTHER ==
[2021-12-04 10:16] LABS: BASOPHILS % (AUTO) 0 % (0-10); HEMATOCRIT 38 % (35-52)
[2021-12-04 10:18] LABS: EOSINOPHILS # (AUTO) 0.3 10^3/uL (0.0-0.3); EOSINOPHILS % (AUTO) 3 % (0-10); HEMOGLOBIN 13.6 g/dL (11.5-16.0); LYMPHOCYTES # (AUTO) 1.7 10^3/uL (1.0-4.0); LYMPHOCYTES % (AUTO) 20 % (12-44); MEAN CORPUSCULAR HEMOGLOBIN 32 pg (25-34); MEAN CORPUSCULAR HGB CONC 36 g/dL (32-36); MEAN CORPUSCULAR VOLUME 89 fL (80-99); MONOCYTES # (AUTO) 0.5 10^3/uL (0.0-1.0); MONOCYTES % (AUTO) 6 % (0-12); NEUTROPHILS # (AUTO) 6.3 10^3/uL (1.8-7.8); NEUTROPHILS % (AUTO) 70 % (42-75); PLATELET COUNT 117 10^3/uL (130-400); WHITE BLOOD COUNT 8.9 10^3/uL (4.3-11.0)
[2021-12-04 10:22] LABS: CLARITY,URINE CLEAR; COLOR,URINE YELLOW; GLUCOSE, URINE (UA) NEGATIVE (NEGATIVE); KETONES,URINE NEGATIVE (NEGATIVE); LEUKOCYTE ESTERASE ,URINE NEGATIVE (NEGATIVE); NITRITE,URINE NEGATIVE (NEGATIVE); PROTEIN,URINE TRACE (NEGATIVE)
[2021-12-04 10:35] LABS: ALBUMIN 4.3 GM/DL (3.2-4.5); BILIRUBIN,TOTAL 0.6 MG/DL (0.1-1.0); CALCIUM 9.3 MG/DL (8.5-10.1); CREATININE SERUM 0.85 MG/DL (0.60-1.30); POTASSIUM 3.6 MMOL/L (3.6-5.0); TOTAL PROTEIN 6.9 GM/DL (6.4-8.2)
[2021-12-04 10:41] LABS: AMORPHOUS SEDIMENT,UR MOD AMOR URATES /LPF; BACTERIA,URINE MODERATE /HPF; BILIRUBIN,URINE NEGATIVE (NEGATIVE); RBC,URINE 0-2 /HPF; SQUAMOUS EPITHELIAL CELL,UR 25-50 /HPF; WBC,URINE 0-2 /HPF; YEAST,URINE FEW /HPF
== END ==
LOC: LAB 09:43
PROVIDERS: ATTEND Thoracic Surgery (Cardiothoracic Vascular Surgery)
DX: Z01.810 Encounter for preprocedural cardiovascular examination (principal); Z01.818 Encounter for other preprocedural examination; N39.0 Urinary tract infection, site not specified; I65.23 Occlusion and stenosis of bilateral carotid arteries
CPT/HCPCS: 36415; 80053; 81000; 85025